=== PATIENT | male | born 1950 | race Caucasian/White ===

== ENCOUNTER 2018-05-17 08:11 | Outpatient (CLI) | payer MEDICARE, OTHER, SELFPAY ==
[2018-05-17 09:01] LABS: Hemoglobin A1C 6.9 % (4.5-6.2)
[2018-05-17 09:42] LABS: Cholesterol 164 mg/dL (50-200); HDL Cholesterol 28 mg/dL (40-60); LDL CHOLESTEROL 94 mg/dL (<100); Triglyceride 275 mg/dL (30-150)
== END 2018-05-17 08:31 ==
PROVIDERS: PCP Family Medicine; Visit Provider Family Medicine
DX: E78.5 Hyperlipidemia, unspecified (principal); E11.9 Type 2 diabetes mellitus without complications
CPT/HCPCS: 36415; 80061; 83721; 83036

== ENCOUNTER 2018-08-18 08:21 | Outpatient (CLI) | payer MEDICARE, OTHER, SELFPAY ==
--- NOTE | 2018-08-18 08:18 | DI.RAD_ITS ---
SYMPTOM/DIAGNOSIS: RT SHOULDER PAIN RIGHT SHOULDER: Three views. There are mild hypertrophic changes seen at both the acromioclavicular joint and the glenohumeral joint. Dystrophic calcifications are seen superior to the acromion. There are also calcifications adjacent to the greater tuberosity suggesting calcific tendinitis. No acute fracture, dislocation or suspicious lytic or sclerotic lesions are seen. IMPRESSION: Degenerative changes seen in the right shoulder.
== END 2018-08-18 08:41 ==
PROVIDERS: PCP Family Medicine; Referring Provider Family Medicine; Visit Provider Student in an Organized Health Care Education/Training Program
DX: M25.511 Pain in right shoulder (principal); M19.011 Primary osteoarthritis, right shoulder; E11.9 Type 2 diabetes mellitus without complications; Z79.4 Long term (current) use of insulin
CPT/HCPCS: 20610; 99214; 73030; J1040

== ENCOUNTER → 2018-09-29 08:18 | Outpatient (BNVA) | payer MEDICARE, OTHER, SELFPAY | PROVIDERS: PCP Family Medicine; Referring Provider Family Medicine; Visit Provider Student in an Organized Health Care Education/Training Program | DX: M75.101 Unspecified rotator cuff tear or rupture of right shoulder, not specified as traumatic (principal); E11.9 Type 2 diabetes mellitus without complications; Z79.4 Long term (current) use of insulin; M19.011 Primary osteoarthritis, right shoulder | CPT/HCPCS: 99213 ==

== ENCOUNTER 2018-10-04 00:37 | Outpatient (CLI) | payer MEDICARE, OTHER, SELFPAY ==
--- NOTE | 2018-10-04 14:34 | DI.MRI_ITS ---
SYMPTOM/DIAGNOSIS: RT SHOULDER PAIN, ROTATOR CUFF TEAR, M75.101 RIGHT SHOULDER MRI: Comparison is made with plain films dated 08/18/18. Proton density and fat suppressed T 2 axial and coronal and T 1 and fat suppressed T 2 sagittal sequences were performed. There is poor fat suppression on the T 2 fat suppressed images. There is a moderate to large sized joint effusion as well as fluid in the subcoracoid bursa. There are degenerative changes of the AC joint with mild inferior impingement. There is marked thickening of the supraspinatus tendon distally without evidence of a focal tear. A focal area of high signal is seen in the distal superior subscapularus tendon. The infraspinatus, teres minor and biceps tendons appear intact. There are degenerative changes of the glenoid, greatest posteriorly. A subchondral cyst is seen in the humeral head. There is no significant muscular atrophy. IMPRESSION: Marked thickening of the supraspinatus tendon, consistent with tendinosis. A small focal tear versus tendinitis is seen in the distal subscapularus tendon. Glenohumeral joint degenerative changes are also present.
== END 2018-10-04 00:57 ==
PROVIDERS: PCP Family Medicine; Visit Provider Student in an Organized Health Care Education/Training Program
DX: M25.511 Pain in right shoulder (principal); M75.101 Unspecified rotator cuff tear or rupture of right shoulder, not specified as traumatic; M19.011 Primary osteoarthritis, right shoulder; M75.81 Other shoulder lesions, right shoulder
CPT/HCPCS: 73221

== ENCOUNTER → 2018-10-11 10:21 | Outpatient (BNVA) | payer MEDICARE, OTHER, SELFPAY | PROVIDERS: PCP Family Medicine; Referring Provider Family Medicine; Visit Provider Student in an Organized Health Care Education/Training Program | DX: M75.111 Incomplete rotator cuff tear or rupture of right shoulder, not specified as traumatic (principal); E11.9 Type 2 diabetes mellitus without complications; Z79.4 Long term (current) use of insulin | CPT/HCPCS: 99213 ==

== ENCOUNTER 2018-11-04 01:00 | Outpatient (CLI) | payer MEDICARE, OTHER, SELFPAY ==
--- NOTE | 2018-11-04 09:35 | DI.RAD_ITS ---
SYMPTOMS/DIAGNOSIS: RT ROTATOR CUFF TEAR OR RUPTURE, M75.101 RIGHT SHOULDER INJECTION: Fluoroscopy Time: 14.4 secs, 1.37 mGy Fluoroscopy was provided for Dr. Espinal for guidance while performing a right shoulder injection. Please see procedure note for details.
[2018-11-04] MEDS: Bupivacaine 0.5% Pres-Free 10 ML VIAL 5 ML IJ (14:34)
[2018-11-04] MEDS: Omnipaque 300 MG/ML 10 ML BTL IJ (14:35)
[2018-11-04] MEDS: methylPREDNISolone ACETATE 80 MG/ML VIAL IM (14:36)
--- NOTE | 2018-11-04 17:36 | OPPNE_ITS ---
Date of service: 11/04/18 Time of Service: 12:35 Procedure Note Date of procedure: 11/04/18 Procedure: Right Shoulder Injection Surgeon/Proceduralist/Physician: Abhi Espinal Procedure Diagnosis: Right partial articular sided rotator cuff tear there Procedure Indications: Gal has had persistent pain of the RIGHT shoulder. Noninvasive measures have been tried. To serve as both diagnostic and therapeutic, an injection under fluoroscopy was recommended. I had discussed the risks of the procedure and the patient elected to proceed. Procedure Description: Gal was greeted in the flouroscopy room. The correct side was identified and the consent was reviewed with the patient and signed. The patient was then placed in the supine position on the fluoroscopy table. The RIGHT shoulder was then prepped with Chloraprep. The anterior injection starting point was identiifed by bony landmarks and fluoroscopy. The skin and soft tissue in the tract of the injection was anesthetized with 1% Lidocaine. A spinal needle was then inserted deep into the shoulder joint at the level of the recess between the glenoid and superior humeral head. A small amount of Omnipaque solution was injected to confirm intraarticular placement. Once confirmed, the shoulder was injected with 4cc of 0.5% Bupivicaine and 80mg of Depo-Medrol. A bandaid was placed on the injection site. The patient tolerated the procedure well and noted improvement in pre- injection pain.
== END 2018-11-04 01:20 ==
PROVIDERS: PCP Family Medicine; Visit Provider Student in an Organized Health Care Education/Training Program
DX: M25.511 Pain in right shoulder (principal); M75.101 Unspecified rotator cuff tear or rupture of right shoulder, not specified as traumatic
CPT/HCPCS: 20610; 77002; J1040

== ENCOUNTER → 2018-11-19 09:41 | Outpatient (BNVA) | payer MEDICARE, OTHER, SELFPAY | PROVIDERS: PCP Family Medicine; Referring Provider Family Medicine; Visit Provider Student in an Organized Health Care Education/Training Program | DX: M19.011 Primary osteoarthritis, right shoulder (principal); M75.111 Incomplete rotator cuff tear or rupture of right shoulder, not specified as traumatic; Z98.890 Other specified postprocedural states; E11.9 Type 2 diabetes mellitus without complications; Z79.4 Long term (current) use of insulin | CPT/HCPCS: 99212; 99213 ==

== ENCOUNTER → 2018-12-31 08:50 | Outpatient (BNVA) | payer MEDICARE, OTHER, SELFPAY | PROVIDERS: PCP Family Medicine; Referring Provider Family Medicine; Visit Provider Student in an Organized Health Care Education/Training Program | DX: Z98.890 Other specified postprocedural states (principal); M75.111 Incomplete rotator cuff tear or rupture of right shoulder, not specified as traumatic; M19.011 Primary osteoarthritis, right shoulder; E11.9 Type 2 diabetes mellitus without complications; Z79.4 Long term (current) use of insulin | CPT/HCPCS: 99211; 99213 ==

== ENCOUNTER → 2019-01-04 15:26 | Outpatient (BNVA) | payer MEDICARE, OTHER, SELFPAY | PROVIDERS: PCP Family Medicine; Visit Provider Psychiatry & Neurology Neurology | DX: G25.0 Essential tremor; E11.42 Type 2 diabetes mellitus with diabetic polyneuropathy; Z79.4 Long term (current) use of insulin | CPT/HCPCS: 99213; 99214 ==

== ENCOUNTER 2019-01-07 16:19 | Outpatient (REF) | payer MEDICARE, OTHER, SELFPAY ==
[2019-01-07 20:54] LABS: Hemoglobin A1C 7.1 % (4.5-6.2)
[2019-01-07 21:27] LABS: ALT 33 U/L (12-78); AST 15 U/L (15-37); Albumin 3.8 g/dL (3.4-5.0); Alkaline Phosphatase 72 U/L (46-116); Anion Gap 9.6 mmol/L (3-11); BUN 24 mg/dL (7-18); Bilirubin, Total 0.3 mg/dL (0.2-1.0); CO2 27.4 mmol/L (21.0-32.0); CREATININE 0.93 mg/dL (0.70-1.30); Calcium 9.9 mg/dL (8.5-10.1); Chloride 105 mmol/L (98-107); Glucose 137 mg/dL (70-100); Sodium 142 mmol/L (136-145); TSH (W/Ref FT4) 2.76 uIU/mL (0.358-3.74); Total Protein 7.1 g/dL (6.4-8.2); Vitamin B12 247 pg/mL (193-986)
[2019-01-10 13:44] LABS: Albumin 59.3 % (55.8-66.1)
== END 2019-01-07 16:39 ==
LOC: NCHCN 16:19
PROVIDERS: PCP Family Medicine; Visit Provider Family Medicine
DX: E03.9 Hypothyroidism, unspecified (principal); E11.9 Type 2 diabetes mellitus without complications; E78.5 Hyperlipidemia, unspecified; G62.9 Polyneuropathy, unspecified; M54.2 Cervicalgia
CPT/HCPCS: 80053; 82607; 83036; 84165; 84443

== ENCOUNTER 2019-01-21 09:54 | Outpatient (CLI) | payer MEDICARE, OTHER, SELFPAY ==
--- NOTE | 2019-01-21 09:32 | HPE_ITS ---
Assessment and Plan (1) DJD of right AC (acromioclavicular) joint: Current visit: No Status: Chronic Plan: Educated patient on surgery covering surgical technique, recovery process, benefits and risks including but not limited to risk of infection, blood clot, damage to soft tissue/blood vessels/nerves in detail. After discussion patient gives verbal understanding of risks and elects to proceed with scheduling surgery. Patient had opportunity to have questions answered to his satisfaction. He will contact office if issues arise. Patient will continue to be scheduled for right arthroscopic rotator cuff repair and distal clavicle excision with Dr. Espinal on 01/25/2019. (2) Right rotator cuff tear: Current visit: No Status: Chronic Qualifiers: Rotator cuff tear extent: incomplete Qualified Code(s): M75.111 - Incomplete rotator cuff tear or rupture of right shoulder, not specified as traumatic History of Present Illness Narrative: Mr. Arevalo is a 68-year-old [id number] male who presents to clinic for preoperative visit for scheduled right rotator cuff repair and distal clavicle excision with Dr. Espinal on 01/25/2019. Patient has been seen in orthopedic clinic since 08/18/2018 for worsening discomfort of atraumatic right shoulder pain that has been ongoing for approximately 2 years. Since that visit patient has received subacromial injection which provided approximately 4 weeks of pain relief, injection under fluoroscopy on 10/27/2018 which provided significant relief for several weeks, and attended physical therapy without any dramatic improvement. Patient continues to report right shoulder discomfort that is elicited with motions away from his body, getting dressed in the morning and when closing his car door. In addition he also reports severe sleep disturbance due to right shoulder discomfort. Patient has been managing discomfort by taking 2-4 tablets of Advil 3 times daily with mild improvement. As per Dr. Espinal's note on 10/11/2018 patient's MRI showed some partial tearing of supraspinatus tendon with significant tendinosis of the supraspinatus and subscapularis. Due to patient's continued pain despite adequate trial of c onservative therapies Dr. Espinal offered surgical intervention and patient elected to proceed. Patient denies any injuries or falls, symptoms of numbness or tingling. Pertinent Surgical Information Review of patient's EKG from 11/25/2017 which showed rate of 81 with frequent PVCs. Randy De La Vega, SCHOOL EXAMINER recommended further cardiology work-up based on this EKG before proceeding with surgery. Upon further investigation of patient's chart note from Dr. Brumfield on 04/27/2018 states: Holter December 2017 revealed 20,000 PVCs per day and 91 ventricular runs. He was started on bisoprolol. Repeat Holter monitor in February 2018 showed 4000 PVCs per day and a 7-beat ventricular run. Echocardiogram and nuclear stress test in December and January 2018 were normal under Impressions and Plan: Echocardiogram did not reveal structural heart disease, and nuclear stress test showed normal perfusion. Good blood pressure, no evidence of heart failure, no angina. -Continue bisoprolol 10 mg daily. -Repeat Holter in 1 year. Repeat EKG was completed today (01/21/2019) which showed rate of 51 - sinus bradycardia, low voltage throughout with presence of 1 PVC. EKG was then presented to and reviewed with Randy De La Vega CRNA who had no concerns and stated patient can to continue to proceed with surgery. Further review of patient's medication list show bisoprolol fumarate 10 mg PO qday. Case was re-discussed with Dr. Espinal who agreed that patient will proceed with surgery. At time of visit patient denies any cardiac symptoms including chest pain, palpitations, fast/slow/irregular heartbeats to his knowledge. Patient is very active and is able to complete activities such as lawn care without cardiac or pulmonary issues. Denies past medical history of: Hypertension, stroke, angina, COPD, sleep apnea, renal issues, liver issues, hepatitis, gastrointestinal ulcers, bleeding disorders, seizures, migraines, anxiety, autoimmune disorders Denies prior complications from surgery or anesthesia. Review of Systems Constitutional Denies fever(s), Reports frequent falls (loss of balance ambulates with a cane to help improve) and Reports headache(s) (occasional headaches) Eyes Denies change in vision ENT Denies ear discharge, Reports headache(s) (occasional headaches), Denies epistaxis, Denies nasal discharge and Denies sore throat Cardiovascular Denies chest pain, Denies rapid heart rate, Denies irregular heart rhythm, Denies palpitations, Denies dyspnea, Denies dyspnea on exertion, Denies orthopnea, Denies paroxysmal nocturnal dyspnea and Denies slow heart rate Comments: Denies laying on back at night due to increased dizziness; denies any recent change in symptoms; denies orthopnea Respiratory Reports cough (dry chronic cough), Denies excessive phlegm production, Denies pain with cough, Denies dyspnea, Denies dyspnea on exertion and Denies wheezing Gastrointestinal Denies abdominal pain, Denies melena, Denies hematochezia, Denies constipation, Denies diarrhea, Denies nausea and Denies vomiting Genitourinary Denies hematuria, Denies dysuria and Denies urinary urgency Musculoskeletal Reports as per HPI, Denies numbness and Denies tingling Neurologic Reports frequent falls (loss of balance ambulates with a cane to help improve), Reports headache(s) (occasional headaches), Denies numbness and Denies tingling Endocrine Denies palpitations Allergic/Immunologic Denies wheezing PFSH Medical History Chronic low back pain (Acute) Hypothyroidism (Chronic) Asthma (Chronic) Diabetic peripheral neuropathy (Acute) Diabetes Hyperlipemia 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) Right rotator cuff tear (Chronic) 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) Essential tremor (Acute 11/21/14) Depression (Resolved) Infection of total right knee replacement (Resolved) Surgical History S/P cholecystectomy (Acute) S/P lumbar spine operation (Acute) Status post total knee replacement, right (Acute) Social History Smoking/Tobacco Use Status: Former Tobacco Use Pack-years: 1 Alcohol Intake: current Alcohol Intake frequency: a few times a month Alcohol type: beer, wine and hard liquor Drug use: Never Substance use type: does not use Household members: children Do you feel safe at home: Yes Additional Social history: 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 He is a former alcoholic and now drinks approximately one alcoholic beverage per week. Meds Home Medications Medication Instructions Recorded Confirmed Type aspirin [Aspirin Low-Strength] 81 mg PO DAILY 04/07/14 01/21/19 History metformin 1,000 mg PO BID 04/07/14 01/21/19 History vitamin E 400 unit PO DAILY 04/07/14 01/21/19 History albuterol sulfate 2 puff INHALATION Q4H PRN inhaler 10/16/14 01/21/19 History ibuprofen [Advil] 0 PO PRN tab-cap 10/16/14 01/04/19 History calcium carbonate 1,200 mg PO DAILY tab.chew 11/08/14 01/21/19 History fluoxetine [Prozac] 40 mg PO DAILY tab-cap 11/08/14 01/21/19 History ibuprofen [Advil] 200 mg PO DIRECTED PRN tab-cap 11/08/14 01/21/19 History omeprazole 20 mg PO DAILY #30 tab-cap 11/25/17 01/21/19 Rx insulin asp prt-insulin aspart SUB-Q DIRECTED 01/05/18 01/04/19 History [Novolog Mix 70/30 Flexpen] bisoprolol fumarate 10 mg PO DAILY #90 tab-cap 04/28/18 01/21/19 Rx lisinopril 10 mg PO DAILY #90 tab-cap 04/28/18 01/21/19 Rx amoxicillin 500 mg tablet 2,000 mg PO .PROIR TO DENTAL tab 01/04/19 01/21/19 History insulin detemir (U-100) 100 40 unit SC BID ml 01/04/19 01/21/19 History unit/mL (3 mL) subcutaneous pen levothyroxine 75 mcg tablet 100 mcg PO DAILY tab 01/04/19 01/21/19 History Allergies Allergy/AdvReac Type Severity Reaction Status Date / Time ceftriaxone Allergy Severe ANAPHYLAXIS Unverified 01/21/19 16:59 Cephalosporins Allergy Severe Unverified 01/21/19 16:59 ciprofloxacin AdvReac Dizziness/L Unverified 01/21/19 16:59 ightheade meperidine HCl [From Demerol] AdvReac vomiting Unverified 01/21/19 16:59 morphine AdvReac vomiting Unverified 01/21/19 16:59 Exam Const General: cooperative and no acute distress HENMT Head: normal to inspection, normocephalic and atraumatic Ears: external ears normal General nose exam: external nose normal and no nasal discharge Face and sinus: face symmetric Mouth: oral mucosae normal, lip normal, tongue normal and moist mucous membranes Teeth and gingiva: dentition normal Throat: posterior oropharynx normal Eyes General: appearance normal, both eyes and all related structures Pupils: PERRL EOM: EOM intact bilaterally Neck Neck: trachea midline Carotids: normal carotid upstroke Lymphatic: no lymphadenopathy noted Resp Effort & Inspection: normal respiratory effort and able to speak in complete sentences Auscultation: clear to auscultation bilaterally, no rales, no rhonchi and no wheezes Cardio Heart Sounds: S1 normal, S2 normal and no murmurs Pulses: radial pulses present bilaterally GI Palpation: soft, no hepatosplenomegaly and nontender Auscultation: normal bowel sounds Skin General skin exam: no rashes or lesions noted
== END 2019-01-21 10:14 ==
PROVIDERS: PCP Family Medicine; Visit Provider Student in an Organized Health Care Education/Training Program
DX: I49.3 Ventricular premature depolarization (principal); M19.011 Primary osteoarthritis, right shoulder; M75.111 Incomplete rotator cuff tear or rupture of right shoulder, not specified as traumatic; E11.42 Type 2 diabetes mellitus with diabetic polyneuropathy; Z01.818 Encounter for other preprocedural examination; Z79.4 Long term (current) use of insulin
CPT/HCPCS: NC; 93005; 93010

== ENCOUNTER 2019-01-25 09:01 | Day surgery (SDC) | payer MEDICARE, OTHER, SELFPAY ==
[2019-01-21 10:33] VITALS: BP 125/69; PULSE 56; RESP 18; TEMP 36.6; O2SAT 98
[2019-01-25] VITALS (9 sets, daily range): BP systolic 108–151; BP diastolic 36–74; PULSE 50–72; RESP 18–21; TEMP 36.4–36.6; O2SAT 92–96
[2019-01-25] MEDS: Lactated Ringers 1,000 ML 80 ML IV ×2 (09:53→12:59)
[2019-01-25] MEDS: Bupivacaine LIPOSOME/PF 133 MG/10 ML VIAL IJ (10:20)
[2019-01-25] MEDS: Bupivacaine 0.25% Pres-Free 30 ML VIAL ×2 (10:48→12:25)
--- NOTE | 2019-01-25 10:50 | PDOC.DSDIS_ITS ---
Discharge Plan Disposition Patient Disposition: HOME Condition: Good Discharge Details Reason For Visit: Right Rotator Cuff Tear and AC Arthritis Attending Provider: Abhi Espinal Primary Care Provider: Beatriz Cotton V Home Meds and New Rx's Prescriptions: New acetaminophen 500 mg tablet 1,000 mg PO Q8H PRN (Reason: pain) Qty: 90 RF: 3 ibuprofen 600 mg tablet 600 mg PO TID PRNQty: 60 RF: 3 oxycodone 5 mg tablet 5 mg PO Q4H Qty: 12 RF: 0 Continued Levemir FlexTouch U-100 Insuln 100 unit/mL (3 mL) insulin pen 40 unit SC BID RF: 0 amoxicillin 500 mg tablet 2,000 mg PO .PROIR TO DENTAL RF: 0 albuterol sulfate 8.5 GM HFA aerosol inhaler 2 puff Inhalation Q4H PRN RF: 0 calcium carbonate 500 MG tablet,chewable 1,200 mg PO DAILY RF: 0 fluoxetine [Prozac] 20 MG capsule 40 mg PO DAILY RF: 0 omeprazole 20 MG capsule,delayed release(DR/EC) 20 mg PO DAILY Qty: 30 RF: 0 Novolog Mix 70-30FlexPen U-100 100 UNIT/1 ML insulin pen Sub-Q DIRECTED RF: 0 bisoprolol fumarate 10 MG tablet 10 mg PO DAILY Qty: 90 RF: 3 lisinopril 10 MG tablet 10 mg PO DAILY Qty: 90 RF: 3 vitamin E 200 UNIT capsule 400 unit PO DAILY RF: 0 aspirin [Aspirin Low-Strength] 81 MG tablet,chewable 81 mg PO DAILY RF: 0 metformin 500 MG tablet extended release 24 hr 1,000 mg PO BID RF: 0 levothyroxine 75 mcg tablet 100 mcg PO DAILY RF: 0 Discontinued ibuprofen [Advil Liqui-Gel] 200 MG capsule PO PRN RF: 0 ibuprofen [Advil] 100 MG tablet 200 mg PO DIRECTED PRNRF: 0 Discharge Instructions Stand Alone Forms: Kylie linda/RCR Referrals: Abhi Espinal MD [ [facility] STAFF PHYSICIAN] - Equipment/Supplies: Sling Activity:: In Sling except for hygiene Remove Dressings/Wound Care:: 72 hours Shower/Bathe:: 72 hours Diet:: As Tolerated Discharge Orders Discharge Orders: Discharge Order (Routine); Ordered 01/25/19 Ordered By: Abhi Espinal DS: Diagnosis Discharge Diagnosis (1) Right rotator cuff tear: Status: Chronic (2) DJD of right AC (acromioclavicular) joint: Status: Chronic
[2019-01-25] MEDS: CLINDAMYCIN 600 MG/50 ML BAG 100 MG IVPB (10:53)
[2019-01-25] MEDS: Albuterol 2.5 MG/3 ML INH SOLN VIAL UPD (13:21)
--- NOTE | 2019-01-25 16:36 | W.PM.OP ---
Date of service: 01/25/19 Time of Service: 14:36 Operative Note DATE OF PROCEDURE: 01/25/19 PRE-OP DIAGNOSIS: Right AC arthritis, right rotator cuff tear POST-OP DIAGNOSIS: other (Right AC arthritis, right rotator cuff tear, right superior labral tear with biceps tendinitis) PROCEDURE: - Mini-Open Distal Clavicle Excision - Arthroscopic Rotator Cuff Repair - Extensive debridement of anterior and posterior glenohumeral joint and rotator cuff - Subacromial Debridement with Acromioplasty SURGEON: Abhi Espinal WARRANT SERVER: Nicky Lopez ANESTHESIA: GETA and regional ESTIMATED BLOOD LOSS: 20 PATHOLOGY: none sent COMPLICATIONS: None Patient was transported to: PACU Patient's condition: stable Indications: I have seen Gal in clinic for a painful shoulder. Pathology was confirmed based on MRI and exam findings. Nonoperative measures were exhausted but disability and pain persisted. I discussed shoulder arthroscopy and procedures. I reviewed the risks of the procedures to include, but not limited to, bleeding, infection, pain, stiffness, damage to nerves or vessels, recurrence, hardware failure, blood clot. Despite these risks, the patient elected to proceed. Findings: There were signs of arthrosis of the distal clavicle; a 1cm wedge was resected A diagnostic arthroscopy was performed with the following findings: - Glenohumeral Joint: There is some focal areas within the central portion of the glenoid and the superior posterior portion of the humeral head with grade II/III chondromalacia. - Labrum: Significant fraying and complex tearing was seen from approximately 11:00 to 4:00. The biceps anchor was involved in the biceps also had some minor fraying and inflammatory changes - Cuff: High-grade partial articular sided tear of the anterior portion spinatus tendon. There also appear to be a longitudinal type split within the subscapularis bowels unable to expose the footprint and therefore did not repair - Biceps: Inflammatory change and tearing of the anchor. - Subacromial: Large bursa with intact bursal cuff and minor anterolateral spurring Procedure Description: Gal was greeted in the preoperative holding area where the correct side was identified and marked. The consent was reviewed with the patient and signed. The history and physical was updated. All questions were answered. He was taken back to the PACU for administration of an intrascalene nerve block. Gal was then taken to the operating room. The patient was placed into the supine position on the operating room table. A general anesthetic was administered. He was then positioned in the beach chair position. All bony prominences were well padded. The head was placed in a foam greenskeeper head in a neutral position. Prophylactic antibiotics in the form of clindamycin were administered. The right arm/shoulder was then prepped with Chloraprep and draped in a standard fashion with stockinette and shoulder drape. A timeout to confirm correct identity, side and site, procedure, allergies, anesthesia, and medical concerns was performed. The arm was placed into a pneumatic vasquez, [id number]. The distal clavicle was approached through a 2 and half centimeter incision within Cornelius's lines. This was made overlying the AC joint. The skin was incised sharply. The deeper tissues dissected with electrocautery. The clavipectoral fascia was identified and incised longitudinally off of the distal clavicle and onto the acromion. This was reflected subperiosteally to expose the distal clavicle and the AC joint. With adequate exposure a 1 cm bony resection was made using an oscillating saw. This is angled posteriorly to avoid any posterior impingement. Once it was fully resected, it was inspected to make sure it is of adequate width. A rasp was used to smooth the bony edges inferiorly and posteriorly primarily. A small amount of bone wax was placed on the end of the distal clavicle. The wound was thoroughly irrigated. There is no active bleeding. The clavipectoral fascia was then closed with a 0 Vicryl in a watertight fashion. The subcutaneous tissues were then reapproximated with a 2-0 Vicryl. The shoulder arthroscopy was then performed. The glenohumeral joint was injected with 20 cc of normal saline with good flow back. A standard posterior portal was made and the joint was entered atraumatically with a blunt arthroscope. Once inside we had good visualization of the structures of the glenohumeral joint. An anterior portal was established with spinal needle localization. A 6.5 mm cannula was inserted. A probe was then used to perform a diagnostic arthroscopy. There is noted to be focal arthritic change within the central portion of the glenoid and the superior and posterior portions of the humeral head.. The labrum was torn and frayed from 11-4:00. There was one loose body which was removed through the anterior portal. The superior rotator cuff was notably torn over the anterior aspect. It involves greater than 8 mm and was significantly frayed. The biceps tendon had signs of inflammatory change along with some tearing around his anchor. The subscapularis had what appeared to be a longitudinal split type tear but there is no exposed footprint and I was unable to separate the tendon. I debrided down the inflammatory change seen within the glenohumeral space with a little cautery and with a shaver. I performed a biceps tenotomy with the electrocautery device. The labrum was contoured and removed any areas of complex tearing. The subscapularis was probed and did not show any signs of exposed footprint so therefore I did not complete a any repair. I did a light debridement of the area. The anterior portion of the supraspinatus insertion did have significant fraying and tearing of at least 8 mm. I debrided down the exposed tissue surfaces and the bone of the area. The posterior cuff was intact. A PDS was placed through the area of concern of the supraspinatus insertion for identification of the bursal space. The arthroscope was then inserted into the subacromial space. The 6.5 mm cannula was placed lateral to the CA ligament. A complete bursectomy is performed anteriorly, posteriorly, and laterally with electrocautery and shaver. This had excellent exposure of the rotator cuff. The bursal side rotator cuff was without any significant tearing that was appreciated. There was a small anterolateral spur. Using a spinal needle a lateral portal was established. This became the viewing portal. The PDS suture was identified. A probe easily fell within this tissue. And had no strong attachment to the tuberosity. Using the probe in the left cardia device I completed the partial tear to make a complete crescent type tear involving the anterior portion of the supra spinatus insertion on the greater tuberosity. The footprint was debrided with the shaver. A single 4.5 mm Mytec Healix anchor was placed on the medial portion of the footprint insertion. Using the Mytec retrograde suture passer device I placed 2 horizontal mattress sutures within the tendon. This tendon quality was excellent and held the sutures well. To horizontal mattress sutures were then tied and this nicely reapproximated tear back down to bone. There is no gapping there is no dog tearing. I therefore did not perform any lateral row. I debrided this tissue down. A 5.0 mm denver was then inserted from the posterior portal. The anterolateral corner of the acromion was then resected in plane with the posterior slope of the acromion. The scope equipment was removed from the shoulder. Excess fluid was evacuated. The portal sites were closed with 3-0 Monocryl. The wounds were dressed with Steri-Strips, 4 x 4's, ABDs, Medipore tape. A sling was applied. The patient tolerated the procedure well and was returned to the Same Day Surgery area in a stable condition suffering no known complication.
--- NOTE | 2019-01-27 08:52 | PDOC.ANES ---
Date of service: 01/27/19 Time of Service: 08:53 Anesthesia Note Report Anesthesia Note: Mr. Arevalo called today to state that he was experiencing some shortness of breath after his surgery on 01/25/19. He had surgery on his shoulder under general anesthesia with an ETT and a preoperative brachial plexus block. On calling him back we had a long discussion of potential causes of shortness of breath including, phrenic nerve block, pneumothorax, atelectasis, etc. He described being slightly short off breath while walking, but when he got into a reclined position he stated that his shortness of breath increased. Discussed the likely potential issue being abdominal contents shifting and pushing up combined with his phrenic nerve being blocked. While chatting with him on the phone he was speaking in full sentences, and did not sound out of breath. I told him that while I do feel that this is likely a side effect of the block that he should come to the emergency room if he feels that he gets worse, has any significant change in his breathing, or if he has significant concerns as this. I encouraged him to reach out to us with any further questions that he may have.
== END 2019-01-25 16:18 | disposition home or self-care (01) ==
PROVIDERS: PCP Family Medicine; Visit Provider Student in an Organized Health Care Education/Training Program
PROC: (CPT 23120; principal; 2019-01-25 10:30)
PROC: (CPT 29827; 2019-01-25 10:30)
DX: M19.011 Primary osteoarthritis, right shoulder (principal); M94.211 Chondromalacia, right shoulder; M75.111 Incomplete rotator cuff tear or rupture of right shoulder, not specified as traumatic; M75.21 Bicipital tendinitis, right shoulder; M24.011 Loose body in right shoulder
CPT/HCPCS: 29827; 29826; 29823; 23120; 76942; A4600; J1100; J1885; J2250; J2370; J7613; L3650; L3670

== ENCOUNTER → 2019-02-07 13:14 | Outpatient (BNVA) | payer MEDICARE, OTHER, SELFPAY | PROVIDERS: PCP Family Medicine; Referring Provider Family Medicine; Visit Provider Student in an Organized Health Care Education/Training Program | DX: E11.42 Type 2 diabetes mellitus with diabetic polyneuropathy (principal); Z47.89 Encounter for other orthopedic aftercare; M75.111 Incomplete rotator cuff tear or rupture of right shoulder, not specified as traumatic ==

== ENCOUNTER → 2019-02-28 09:06 | Outpatient (BNVA) | payer MEDICARE, OTHER, SELFPAY | PROVIDERS: PCP Family Medicine; Referring Provider Family Medicine; Visit Provider Student in an Organized Health Care Education/Training Program | DX: Z47.89 Encounter for other orthopedic aftercare (principal) ==

== ENCOUNTER → 2019-03-07 09:34 | Outpatient (BNVA) | payer MEDICARE, OTHER, SELFPAY | PROVIDERS: PCP Family Medicine; Referring Provider Family Medicine; Visit Provider Student in an Organized Health Care Education/Training Program | DX: Z47.89 Encounter for other orthopedic aftercare (principal); E11.42 Type 2 diabetes mellitus with diabetic polyneuropathy ==

== ENCOUNTER 2019-03-29 08:59 | Emergency (ER) | payer MEDICARE, OTHER, SELFPAY ==
[2019-03-29 09:06] VITALS: BP 122/78; PULSE 65; RESP 18; TEMP 36.4; O2SAT 97
--- NOTE | 2019-03-29 09:20 | W.ED.GENAD ---
Discharge Plan Disposition Patient Disposition: HOME Condition: Stable Discharge Details Chief Complaint: Cellulitis Clinical Impression: Insect bite of knee, infected Primary Care Provider: Beatriz Cotton V ED Provider: Ron Carrizales Home Meds and New Rx's Prescriptions: New cephalexin [Keflex] 500 mg capsule 500 mg PO TID 5 Days Qty: 15 RF: 0 Continued Levemir FlexTouch U-100 Insuln 100 unit/mL (3 mL) insulin pen 40 unit SC BID RF: 0 amoxicillin 500 mg tablet 2,000 mg PO .PROIR TO DENTAL RF: 0 albuterol sulfate 8.5 GM HFA aerosol inhaler 2 puff Inhalation Q4H PRN RF: 0 calcium carbonate 500 MG tablet,chewable 1,200 mg PO DAILY RF: 0 fluoxetine [Prozac] 20 MG capsule 40 mg PO DAILY RF: 0 omeprazole 20 MG capsule,delayed release(DR/EC) 20 mg PO DAILY Qty: 30 RF: 0 Novolog Mix 70-30FlexPen U-100 100 UNIT/1 ML insulin pen Sub-Q DIRECTED RF: 0 bisoprolol fumarate 10 MG tablet 10 mg PO DAILY Qty: 90 RF: 3 lisinopril 10 MG tablet 10 mg PO DAILY Qty: 90 RF: 3 vitamin E 200 UNIT capsule 400 unit PO DAILY RF: 0 aspirin [Aspirin Low-Strength] 81 MG tablet,chewable 81 mg PO DAILY RF: 0 metformin 500 MG tablet extended release 24 hr 1,000 mg PO BID RF: 0 levothyroxine 75 mcg tablet 100 mcg PO DAILY RF: 0 acetaminophen 500 mg tablet 1,000 mg PO Q8H PRN (Reason: pain) Qty: 90 RF: 3 ibuprofen 600 mg tablet 600 mg PO TID PRNQty: 60 RF: 3 Discharge Instructions Instructions: Cellulitis (ED), Insect Bite or Sting (ED), Tick Bite (ED) Additional Instructions: Continue to monitor site of insect bite and return immediately to emergency department for any new or worsening symptoms, fever chills, or rapid spread of rash. Otherwise follow-up with your primary care provider if not improving over the next couple days Referrals: Beatriz Cotton MD [Primary Care Provider] - (As needed for reassessment or if not improving) Medical Decision Making Patient presenting to the emergency department chief complaint of insect bite. Patient states that this may have occurred on thursday. Patient denies any other symptoms, new arthralgias, fever chills. Physical exam is unremarkable except for erythema consistent with insect bite and may be a spider vs tick. No tick or insect is present at this time. Given significant erythema there is concern for infected tick bite and patient placed upon Keflex which he has had in the past with no issues even though he has listed allergy to ceftriaxone. Given potential for tick bite but no erythema margins or concerning findings for Lyme disease patient given single dose of doxycycline to cover for potential exposure of Lyme. Return precautions discussed. After discussion of diagnosis and plan of care patient has no further needs, questions, or concerns and states clear understanding to return to the emergency department for any worsening symptoms. HPI General Mode of arrival: ambulatory. Date/Time Provider Initiated Documentation: 03/29/19 09:05. Limitations to Documentation: no limitations. Information obtained by: patient and RN notes reviewed. History of Present Illness 68 year old M presents to the emergency department with the chief complaint of insect bite, with intensity rated at 2. Quality is described as aching, and is localized to the left and lower extremity. Patient started experiencing this hour(s) (2) and it has been constant. Patient notes no other symptoms.. Patient did receive the following treatments prior to arrival, none Related Data Home Medications Medication Instructions Recorded Confirmed aspirin [Aspirin Low-Strength] 81 mg PO DAILY 04/07/14 03/29/19 metformin 1,000 mg PO BID 04/07/14 03/29/19 vitamin E 400 unit PO DAILY 04/07/14 03/29/19 albuterol sulfate 2 puff INHALATION Q4H PRN inhaler 10/16/14 03/29/19 calcium carbonate 1,200 mg PO DAILY tab.chew 11/08/14 03/29/19 fluoxetine [Prozac] 40 mg PO DAILY tab-cap 11/08/14 03/29/19 omeprazole 20 mg PO DAILY #30 tab-cap 11/25/17 03/29/19 Novolog Mix 70-30FlexPen U-100 SUB-Q DIRECTED 01/05/18 03/07/19 bisoprolol fumarate 10 mg PO DAILY #90 tab-cap 04/28/18 03/29/19 lisinopril 10 mg PO DAILY #90 tab-cap 04/28/18 03/29/19 amoxicillin 500 mg tablet 2,000 mg PO .PROIR TO DENTAL tab 01/04/19 03/29/19 insulin detemir U-100 100 unit/mL 40 unit SC BID ml 01/04/19 03/29/19 (3 mL) subcutaneous pen levothyroxine 75 mcg tablet 100 mcg PO DAILY tab 01/04/19 03/29/19 acetaminophen 1,000 mg PO Q8H PRN #90 tab 01/25/19 03/29/19 ibuprofen 600 mg PO TID PRN #60 tab 01/25/19 03/29/19 cephalexin [Keflex] 500 mg PO TID 5 Days #15 cap 03/29/19 Previous Rx's Medication Instructions Recorded omeprazole 20 mg PO DAILY #30 tab-cap 11/25/17 bisoprolol fumarate 10 mg PO DAILY #90 tab-cap 04/28/18 lisinopril 10 mg PO DAILY #90 tab-cap 04/28/18 acetaminophen 1,000 mg PO Q8H PRN #90 tab 01/25/19 ibuprofen 600 mg PO TID PRN #60 tab 01/25/19 cephalexin [Keflex] 500 mg PO TID 5 Days #15 cap 03/29/19 Allergies Allergy/AdvReac Type Severity Reaction Status Date / Time ceftriaxone Allergy Severe ANAPHYLAXIS Unverified 03/29/19 09:10 Cephalosporins Allergy Severe Unverified 03/29/19 09:10 ciprofloxacin AdvReac Dizziness/L Unverified 03/29/19 09:10 ightheade meperidine HCl [From Demerol] AdvReac vomiting Unverified 03/29/19 09:10 morphine AdvReac vomiting Unverified 03/29/19 09:10 General Stated Complaint: Cellulitis CASIMIRO: 4 Review of Systems Constitutional Denies body ache(s), Denies fever(s) and Denies headache(s) ENT Denies headache(s) Musculoskeletal Denies myalgias, Denies arthralgias, Denies joint swelling and Denies radiating pain into limb Integumentary/Breasts Reports as per HPI, Reports erythema and Denies rash Neurologic Denies headache(s) and Denies paresthesias PFSH Medical History Asthma (Chronic) Chronic low back pain (Acute) Depression (Resolved) Diabetes Diabetic peripheral neuropathy (Acute) 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) Essential tremor (Acute 11/21/14) Hyperlipemia Hypothyroidism (Chronic) 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) Right rotator cuff tear (Resolved) Surgical History S/P cholecystectomy (Acute) S/P lumbar spine operation (Acute) Status post total knee replacement, right (Acute) Family History Father Heart disease Brother Tremor Son Seizure Mother Osteoarthritis Social History Smoking/Tobacco Use Status: Former Tobacco Use Pack-years: 1 Alcohol Intake: current Alcohol Intake frequency: a few times a month Alcohol type: beer, wine and hard liquor Drug use: Never Substance use type: does not use Household members: children Do you feel safe at home: Yes Additional Social history: 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 He is a former alcoholic and now drinks approximately one alcoholic beverage per week. Exam Const General: cooperative, comfortable and no acute distress Orientation: alert, awake and oriented x3 Resp Effort & Inspection: normal respiratory effort and able to speak in complete sentences Skin General skin exam: erythema (4cm Circular area with 2 central bite lindsay/abrasions), no fluctuance and no induration Rashes: no rashes Neuro General: alert, awake and oriented x3 Course Vital Signs Temperature 36.4 C L 03/29/19 09:06 Pulse 65 03/29/19 09:06 Respiratory Rate 18 03/29/19 09:06 Blood Pressure 122/78 03/29/19 09:06 Pulse Oximetry 97 03/29/19 09:06 Temperature 36.4 C L 03/29/19 09:06 Temperature Source Temporal Artery Scan 03/29/19 09:06 Pulse 65 03/29/19 09:06 Respiratory Rate 18 03/29/19 09:06 Respiratory Effort 03/29/19 09:18 Blood Pressure 122/78 07/23/19 09:06 Pulse Oximetry 97 03/29/19 09:06 Oxygen Delivery Method Room Air 03/29/19 09:06 Oxygen Flow Rate 0 03/29/19 09:06
[2019-03-29] MEDS: Doxycycline Hyclate 100 MG CAP 200 MG PO (09:35)
--- NOTE | 2019-03-29 09:43 | NUR.NOTE ---
pt medicated as per mdo prior to dc dc/rx reviewed with pt able to verblize understanding ambulatory steady on dc Nursing Note:
== END 2019-03-29 09:43 | disposition home or self-care (01) ==
PROVIDERS: Emergency Provider Nurse Practitioner Family; PCP Family Medicine
DX: L03.116 Cellulitis of left lower limb (principal); W57.XXXA Bitten or stung by nonvenomous insect and other nonvenomous arthropods, initial encounter; E11.9 Type 2 diabetes mellitus without complications; Z79.4 Long term (current) use of insulin
CPT/HCPCS: 99283

== ENCOUNTER 2019-04-06 09:53 | Emergency (ER) | payer MEDICARE, OTHER, SELFPAY ==
[2019-04-06 10:09] VITALS: BP 128/63; PULSE 59; RESP 17; TEMP 36.5; O2SAT 94
--- NOTE | 2019-04-06 10:28 | W.ED.GENAD ---
Discharge Plan Disposition Patient Disposition: HOME Condition: Fair Discharge Details Chief Complaint: RashLesion Clinical Impression: Cellulitis Primary Care Provider: Beatriz Cotton V ED Provider: Jessica Colvin Home Meds and New Rx's Prescriptions: New doxycycline hyclate 100 mg capsule 100 mg PO BID Qty: 14 RF: 0 Continued Levemir FlexTouch U-100 Insuln 100 unit/mL (3 mL) insulin pen 40 unit SC BID RF: 0 amoxicillin 500 mg tablet 2,000 mg PO .PROIR TO DENTAL RF: 0 albuterol sulfate 8.5 GM HFA aerosol inhaler 2 puff Inhalation Q4H PRN RF: 0 calcium carbonate 500 MG tablet,chewable 1,200 mg PO DAILY RF: 0 fluoxetine [Prozac] 20 MG capsule 40 mg PO DAILY RF: 0 omeprazole 20 MG capsule,delayed release(DR/EC) 20 mg PO DAILY Qty: 30 RF: 0 Novolog Mix 70-30FlexPen U-100 100 UNIT/1 ML insulin pen Sub-Q DIRECTED RF: 0 bisoprolol fumarate 10 MG tablet 10 mg PO DAILY Qty: 90 RF: 3 lisinopril 10 MG tablet 10 mg PO DAILY Qty: 90 RF: 3 vitamin E 200 UNIT capsule 400 unit PO DAILY RF: 0 aspirin [Aspirin Low-Strength] 81 MG tablet,chewable 81 mg PO DAILY RF: 0 metformin 500 MG tablet extended release 24 hr 1,000 mg PO BID RF: 0 levothyroxine 75 mcg tablet 100 mcg PO DAILY RF: 0 acetaminophen 500 mg tablet 1,000 mg PO Q8H PRN (Reason: pain) Qty: 90 RF: 3 ibuprofen 600 mg tablet 600 mg PO TID PRNQty: 60 RF: 3 Discharge Instructions Instructions: Cellulitis (ED) Additional Instructions: Encourage hydration. Tylenol and ibuprofen as needed for discomfort. Elevate the extremity as much as possible. Please contact your primary care provider to schedule follow-up within the next 48 hours for reevaluation. Please take the doxycycline as prescribed. Even if symptoms improve, please take the entire course. Please avoid direct sun while in the doxycycline. Please do not take your calcium supplement while on the doxycycline, hold this and begin once you have finished. If you develop fever/chills, increased pain, spreading of the redness or the new/worsening symptoms please seek care urgently once again Referrals: Beatriz Cotton MD [Primary Care Provider] - Discharge Data Discharge Date/Time-TO BE ENTERED AT DEPARTURE: 04/06/19 10:42 Medical Decision Making Patient 68-year-old male presents today with chief complaint of infection after bite to the posterior left knee. Patient was seen here on 03/29/2019 at which time he was diagnosed with an infected bite begun on Keflex. He has finished a course of Keflex and it despite this the erythema has persisted. He denies any fevers or chills. No constitutional symptoms. He was given a dose of doxycycline for possible exposure to Lyme as it was unknown if this may have been associated with a tick bite. Patient reports that the drainage did have been apparent initially has subsided. He is having no pain at this time. However, the erythema and swelling has persisted. He has not been evaluated at this time by his primary care. On exam, the patient has a well-circumscribed circular area of erythema, 3 cm in diameter with healed over open areas centrally. No fluctuance. He does have soft tissue swelling. I did evaluate this and ultrasound did not see any collection of fluid to suggest an abscess. Patient does have a total knee replacement on the contralateral side, I feel that he is at high risk for infection. We will place him on a new antibiotic and have him follow-up with his primary care within the next 48 hours for reevaluation. We discussed new/worsening symptoms when to seek care urgently once again. All his questions and concerns were addressed and he is in agreement this plan HPI General Mode of arrival: ambulatory. Date/Time Provider Initiated Documentation: 04/06/19 10:18. Limitations to Documentation: no limitations. Information obtained by: patient and RN notes reviewed. History of Present Illness 68 year old M presents to the emergency department with the chief complaint of erythema to posterior left knee, described as mild, Quality is described as aching, and is localized to the left and lower extremity. Patient reports no radiation. Patient started experiencing this week(s) and it has been constant. No relieving factors improve symptom(s), No exacerbating factors reported . Patient notes no other symptoms.. Patient did receive the following treatments prior to arrival, other (finished course of Keflex) Related Data Home Medications Medication Instructions Recorded Confirmed aspirin [Aspirin Low-Strength] 81 mg PO DAILY 04/07/14 03/29/19 metformin 1,000 mg PO BID 04/07/14 03/29/19 vitamin E 400 unit PO DAILY 04/07/14 03/29/19 albuterol sulfate 2 puff INHALATION Q4H PRN inhaler 10/16/14 03/29/19 calcium carbonate 1,200 mg PO DAILY tab.chew 11/08/14 03/29/19 fluoxetine [Prozac] 40 mg PO DAILY tab-cap 11/08/14 03/29/19 omeprazole 20 mg PO DAILY #30 tab-cap 11/25/17 03/29/19 Novolog Mix 70-30FlexPen U-100 SUB-Q DIRECTED 01/05/18 03/07/19 bisoprolol fumarate 10 mg PO DAILY #90 tab-cap 04/28/18 03/29/19 lisinopril 10 mg PO DAILY #90 tab-cap 04/28/18 03/29/19 amoxicillin 500 mg tablet 2,000 mg PO .PROIR TO DENTAL tab 01/04/19 03/29/19 insulin detemir U-100 100 unit/mL 40 unit SC BID ml 01/04/19 03/29/19 (3 mL) subcutaneous pen levothyroxine 75 mcg tablet 100 mcg PO DAILY tab 01/04/19 03/29/19 acetaminophen 1,000 mg PO Q8H PRN #90 tab 01/25/19 03/29/19 ibuprofen 600 mg PO TID PRN #60 tab 01/25/19 03/29/19 doxycycline hyclate 100 mg PO BID #14 cap 04/06/19 Previous Rx's Medication Instructions Recorded omeprazole 20 mg PO DAILY #30 tab-cap 11/25/17 bisoprolol fumarate 10 mg PO DAILY #90 tab-cap 04/28/18 lisinopril 10 mg PO DAILY #90 tab-cap 04/28/18 acetaminophen 1,000 mg PO Q8H PRN #90 tab 01/25/19 ibuprofen 600 mg PO TID PRN #60 tab 01/25/19 doxycycline hyclate 100 mg PO BID #14 cap 04/06/19 Allergies Allergy/AdvReac Type Severity Reaction Status Date / Time ceftriaxone Allergy Severe ANAPHYLAXIS Unverified 03/29/19 09:10 Cephalosporins Allergy Severe Unverified 03/29/19 09:10 ciprofloxacin AdvReac Dizziness/L Unverified 03/29/19 09:10 ightheade meperidine HCl [From Demerol] AdvReac vomiting Unverified 03/29/19 09:10 morphine AdvReac vomiting Unverified 03/29/19 09:10 General Stated Complaint: RashLesion CASIMIRO: 4 Review of Systems Constitutional Reports as per HPI, Denies chills and Denies fever(s) Musculoskeletal Reports as per HPI Integumentary/Breasts Reports as per HPI Neurologic Reports as per HPI, Denies sensory deficit and Denies paresthesias [facility] Medical History Asthma (Chronic) Chronic low back pain (Acute) Depression (Resolved) Diabetes Diabetic peripheral neuropathy (Acute) 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) Essential tremor (Acute 11/21/14) Hyperlipemia Hypothyroidism (Chronic) 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 He is a former alcoholic and now drinks approximately one alcoholic beverage per week. Exam Const General: cooperative, healthy appearing, comfortable, no acute distress and well developed Nutritional Appearance: average body habitus and well nourished Orientation: alert and awake Resp Effort & Inspection: normal respiratory effort, able to speak in complete sentences and no respiratory distress Cardio Rate: regular rate Rhythm: regular rhythm Skin General skin exam: erythema (3cm circular area of erythema posterior left knee, swollen, no drainage) and no fluctuance Neuro General: alert and awake Cognition: normal cognition Speech: speech normal Gait: normal gait Sensory Exam: no sensory deficits noted Extrem Left lower extremity: full ROM, normal capillary refill, no joint enlargement, knee Details: abnormal to inspection (as above), swelling (localized to erythema) and normal ROM; no tenderness and no unusual warmth and lower leg Details: normal to inspection; abnormal to inspection (erythema as above) Psych Appearance: grossly normal and well kempt Mental Status: mental status grossly normal Speech and Movement: speech and movement normal Course Vital Signs Temperature 36.5 C 04/06/19 10:09 Pulse 59 L 04/06/19 10:09 Respiratory Rate 17 04/06/19 10:09 Blood Pressure 128/63 04/06/19 10:09 Pulse Oximetry 94 L 04/06/19 10:09 Temperature 36.5 C 04/06/19 10:09 Temperature Source Skin 04/06/19 10:09 Pulse 59 L 04/06/19 10:09 Respiratory Rate 17 04/06/19 10:09 Respiratory Effort Non-Labored 04/06/19 10:09 Blood Pressure 128/63 04/06/19 10:09 Blood Pressure Position Sitting 04/06/19 10:09 Pulse Oximetry 94 L 04/06/19 10:09 Oxygen Delivery Method Room Air 04/06/19 10:09 Oxygen Flow Rate 0 04/06/19 10:09 Pain Level 2 04/06/19 10:09
== END 2019-04-06 10:42 | disposition home or self-care (01) ==
PROVIDERS: Emergency Provider Physician Assistant; PCP Family Medicine
DX: L03.116 Cellulitis of left lower limb (principal); Z96.651 Presence of right artificial knee joint; E11.9 Type 2 diabetes mellitus without complications; Z79.4 Long term (current) use of insulin
CPT/HCPCS: 99283

== ENCOUNTER → 2019-04-18 08:50 | Outpatient (BNVA) | payer MEDICARE, OTHER, SELFPAY | PROVIDERS: PCP Family Medicine; Referring Provider Family Medicine; Visit Provider Student in an Organized Health Care Education/Training Program | DX: Z47.89 Encounter for other orthopedic aftercare (principal); M25.511 Pain in right shoulder ==

== ENCOUNTER 2019-05-10 10:24 | Outpatient (REF) | payer MEDICARE, OTHER, SELFPAY ==
[2019-05-10 22:07] LABS: Creatine Kinase 107 U/L (39-308)
[2019-05-10 22:28] LABS: Hemoglobin A1C 7.2 % (4.5-6.2)
[2019-05-10 22:49] LABS: ESR 6 mm/hr (1-20)
[2019-05-12 10:35] LABS: Lyme Ab w Rflx to Lyme Confirm Negative
[2019-05-15 22:29] LABS: Anaplasma phagocytophilum Negative (Negative); B. miyamotoi PCR Negative (Negative); Babesia divergens/MO-1 Negative (Negative); Babesia duncani Negative (Negative); Babesia microti Negative (Negative); Ehrlichia chaffeensis Negative (Negative); Ehrlichia ewingii/canis Negative (Negative); Ehrlichia muris eauclairensis Negative (Negative)
== END 2019-05-10 10:44 ==
LOC: NCHCN 10:24
PROVIDERS: PCP Family Medicine; Visit Provider Family Medicine
DX: E11.9 Type 2 diabetes mellitus without complications (principal); M25.552 Pain in left hip; M25.50 Pain in unspecified joint; W57.XXXA Bitten or stung by nonvenomous insect and other nonvenomous arthropods, initial encounter
CPT/HCPCS: 82550; 85652; 87798; 83036; 86140; 86618

== ENCOUNTER 2019-05-11 09:24 | Outpatient (CLI) | payer MEDICARE, OTHER, SELFPAY ==
--- NOTE | 2019-05-11 09:55 | DI.RAD_ITS ---
SYMPTOMS/DIAGNOSIS: HIP PAIN, M25.559, RADICULAR SYNDROME, M54.10 LUMBAR SPINE: Comparison is made with [id number]. No compression fractures are seen. There are endplate osteophytes throughout. There is mild narrowing of the L 1 - 2, L 3 - 4 and L 4 - 5 discs. There is moderate to severe narrowing of the L 5 - S 1 disc space. There are facet degenerative changes greatest at L 4 - 5 and L 5 - S 1, causing neural foraminal narrowing. There is question of mild scoliosis vs patient positioning. IMPRESSION: Degenerative disc and facet joint changes, greatest at L 5 - S 1.
--- NOTE | 2019-05-11 10:50 | DI.RAD_ITS ---
SYMPTOMS/DIAGNOSIS: HIP PAIN, M25.559 PELVIS AND LEFT HIP: There is moderate to severe narrowing of the left hip joint space. There is periarticular spurring at the acetabulum and femoral head. There is moderate narrowing of the right hip joint space and moderate periarticular spurring. There is a defect of the superior left femur. There is spurring at the inferior SI joints as well as degenerative changes in the lower lumbar spine. IMPRESSION: Moderate degenerative changes of the right hip. Severe degenerative changes of the left hip with focal flattening of the superior femoral head.
== END 2019-05-11 09:44 ==
PROVIDERS: PCP Family Medicine; Visit Provider Family Medicine
DX: M25.552 Pain in left hip (principal); M16.0 Bilateral primary osteoarthritis of hip; M89.8X5 Other specified disorders of bone, thigh; M54.5 Low back pain; M51.37 Other intervertebral disc degeneration, lumbosacral region; M47.817 Spondylosis without myelopathy or radiculopathy, lumbosacral region
CPT/HCPCS: 72110; 73502

== ENCOUNTER → 2019-06-10 09:04 | Outpatient (BNVA) | payer MEDICARE, OTHER, SELFPAY | PROVIDERS: PCP Family Medicine; Referring Provider Family Medicine; Visit Provider Student in an Organized Health Care Education/Training Program | DX: M16.0 Bilateral primary osteoarthritis of hip (principal); E11.42 Type 2 diabetes mellitus with diabetic polyneuropathy; Z79.4 Long term (current) use of insulin | CPT/HCPCS: 99214 ==

== ENCOUNTER 2019-06-16 01:27 | Outpatient (CLI) | payer MEDICARE, OTHER, SELFPAY ==
--- NOTE | 2019-06-16 09:34 | DI.RAD_ITS ---
EXAM: RF JOINT INJECTION FLUORO GUID CLINICAL HISTORY: PAIN, BILATERAL PRIMARY OSTEOARTHRITIS OF HIP, M16.0. TECHNIQUE: 2D and realtime digital imaging was performed.. FINDINGS: Fluoroscopy was utilized by Dr. Espinal during right hip injection. Hard copy shows intra-articular injection of the right hip. FLUORO TIME: 14.9 SECONDS
--- NOTE | 2019-06-16 09:35 | DI.RAD_ITS ---
EXAM: RF JOINT INJECTION FLUORO GUID CLINICAL HISTORY: PAIN, BILATERAL PRIMARY OSTEOARTHRITIS OF HIP, M16.0. TECHNIQUE: 2D and realtime digital imaging was performed.. FINDINGS: Fluoroscopy was utilized by Dr. Espinal during left hip injection. Hard copy shows intra-articular injection of the hip. FLUORO TIME: 7.6 SECONDS
[2019-06-16] MEDS: Omnipaque 300 MG/ML 10 ML BTL IJ ×2 (09:39→09:43)
[2019-06-16] MEDS: Bupivacaine 0.5% Pres-Free 10 ML VIAL 5 ML IJ ×2 (09:40→09:44)
[2019-06-16] MEDS: methylPREDNISolone ACETATE 80 MG/ML VIAL IM ×2 (09:41→09:45)
--- NOTE | 2019-06-16 21:32 | W.PROCNOTE ---
Date of service: 06/16/19 Time of Service: 21:32 Procedure Note Date of procedure: 06/16/19 Procedure: Bilateral Hip Injection with Fluoroscopic Guidance Surgeon/Proceduralist/Physician: Abhi Espinal Procedure Diagnosis: Bilateral Hip Osteoarthritis Procedure Indications: Gal has had persistent pain of the RIGHT hip and groin. Noninvasive measures have been tried. To serve as both diagnostic and therapeutic, an injection under fluoroscopy was recommended. I had discussed the risks of the procedure and the patient elected to proceed. Procedure Description: Gal was greeted in the flouroscopy room. The correct side was identified and the consent was reviewed with the patient and signed. The patient was then placed in the supine position on the fluoroscopy table. The RIGHT hip was then prepped with Chloraprep. The anterolateral injection starting point was identiifed by bony landmarks and fluoroscopy. The skin and soft tissue in the tract of the injection was anesthetized with 1% Lidocaine. A spinal needle was then inserted deep into the hip joint at the level of the lateral femoral neck under fluoroscopic guidance. A small amount of Omnipaque solution was injected to confirm intraarticular placement. Once confirmed, the hip was injected with 6cc of 0.5% Bupivicaine and 80mg of Depo-Medrol. A bandaid was placed on the injection site. The LEFT hip was then prepped with Chloraprep. The anterolateral injection starting point was identiifed by bony landmarks and fluoroscopy. The skin and soft tissue in the tract of the injection was anesthetized with 1% Lidocaine. A spinal needle was then inserted deep into the hip joint at the level of the lateral femoral neck under fluoroscopic guidance. A small amount of Omnipaque solution was injected to confirm intraarticular placement. Once confirmed, the hip was injected with 6cc of 0.5% Bupivicaine and 80mg of Depo-Medrol. A bandaid was placed on the injection site. The patient tolerated the procedure well and noted improvement in pre-injection pain.
== END 2019-06-16 01:47 ==
PROVIDERS: PCP Family Medicine; Visit Provider Student in an Organized Health Care Education/Training Program
DX: M16.0 Bilateral primary osteoarthritis of hip (principal); M25.551 Pain in right hip; M25.552 Pain in left hip
CPT/HCPCS: 20610 ×2; 77002; J1040

== ENCOUNTER 2019-08-23 08:31 | Outpatient (CLI) | payer MEDICARE, OTHER, SELFPAY ==
--- NOTE | 2019-08-23 08:41 | DI.RAD_ITS ---
EXAM: XR PELVIS AP INDICATION: L hip OA. COMPARISON: XR hip LT complete AP pelvis from 05/11/2019 TECHNIQUE: 2D digital imaging was performed. FINDINGS: There is severe narrowing of the left hip joint space, periarticular sclerosis, as well as some randi ening and remodeling of the femoral head and adjacent acetabulum. There are moderate to severe degen erative changes of right hip. IMPRESSION: Severe degenerative changes of left hip. Moderate to severe degenerative changes of right hip.
== END 2019-08-23 08:51 ==
PROVIDERS: PCP Family Medicine; Visit Provider Physician Assistant
DX: M16.0 Bilateral primary osteoarthritis of hip (principal); M25.552 Pain in left hip; M16.12 Unilateral primary osteoarthritis, left hip; E11.9 Type 2 diabetes mellitus without complications; I10 Essential (primary) hypertension; J44.9 Chronic obstructive pulmonary disease, unspecified; Z01.818 Encounter for other preprocedural examination; Z01.812 Encounter for preprocedural laboratory examination
CPT/HCPCS: 36415; 80048; 85027; 86850; 86900; 86901; 72170; 83036

== ENCOUNTER 2019-08-23 08:53 | Outpatient (CLI) | payer MEDICARE, OTHER, SELFPAY ==
--- NOTE | 2019-08-23 08:25 | W.PREOPHP ---
Date of service: 08/23/19 Assessment and Plan Assessment and plan (1) Primary osteoarthritis of left hip: Status: Acute Assessment and plan: Left total hip replacement. Details of surgery were discussed with patient as well as risks and pertinent anatomy. All questions were answered. History of Present Illness History of Present Illness Chief Complaint: Left hip pain Narrative: Gal comes in today for a preop history and physical for a left total hip replacement. He states that he has pain with every step he takes on the left side. He has gotten to the point where he is dreading simple activities like grocery shopping because of the pain involved. He has resorted to walking with a cane. He also has trouble getting up from a seated position, as well as putting on shoes and socks. He has had an injection in the left hip which she states gave him pretty considerable relief, but only for short period of time. According to Dr. 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 Since he has failed conservative treatment and is in considerable pain, Dr. Espinal does offer a left total hip replacement. Gal is anxious to proceed. Pertinent Surgical Information Gal has had a cardiac work-up that was summarized in his previous history and physical for his right shoulder procedure on 01/21/2019. The procedure itself was done here on 01/25/2019 with no complications. He does have a history of diabetes and his last A1C was 7.2 in May. He will have a new one today. Patient denies history of hypertension, CVA, MD, angina, asthma, COPD, renal or liver disorders, hepatitis, bleeding disorders, immune or thyroid disorders. No complications from anesthesia. Review of Systems Constitutional Constitutional: Denies fever(s) ENT Ears, Nose, Mouth, and Throat: Denies dizziness and Denies sore throat Cardiovascular Cardiovascular: Denies chest pain, Denies palpitations and Denies dyspnea Respiratory Respiratory: Denies cough and Denies dyspnea Gastrointestinal Gastrointestinal: Denies abdominal pain, Denies melena, Denies hematochezia, Denies diarrhea, Denies nausea and Denies vomiting Genitourinary Genitourinary: Denies hematuria and Denies dysuria Neurologic Neurologic: Denies dizziness Endocrine Endocrine: Denies palpitations [facility] Social History Smoking/Tobacco Use Status: Former Tobacco Use Pack-years: 1 Alcohol Intake: current Alcohol Intake frequency: a few times a month Alcohol type: beer, wine and hard liquor Drug use: Never Substance use type: does not use Household members: children Do you feel safe at home: Yes Additional Social history: 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 He is a former alcoholic and now drinks approximately one alcoholic beverage per week. Meds Home Medications and Allergies Home Medications Medication Instructions Recorded Confirmed Type aspirin [Aspirin Low-Strength] 81 mg PO DAILY 04/07/14 06/10/19 History metformin 1,000 mg PO BID 04/07/14 06/10/19 History vitamin E 400 unit PO DAILY 04/07/14 06/10/19 History albuterol sulfate 2 puff INHALATION Q4H PRN inhaler 10/16/14 06/10/19 History calcium carbonate 1,200 mg PO DAILY tab.chew 11/08/14 06/10/19 History fluoxetine [Prozac] 40 mg PO DAILY tab-cap 11/08/14 06/10/19 History omeprazole 20 mg PO DAILY #30 tab-cap 11/25/17 06/10/19 Rx Novolog Mix 70-30FlexPen U-100 SUB-Q DIRECTED 01/05/18 06/10/19 History bisoprolol fumarate 10 mg PO DAILY #90 tab-cap 04/28/18 06/10/19 Rx lisinopril 10 mg PO DAILY #90 tab-cap 04/28/18 06/10/19 Rx amoxicillin 500 mg tablet 2,000 mg PO .PROIR TO DENTAL tab 01/04/19 06/10/19 History insulin detemir U-100 100 unit/mL 40 unit SC BID ml 01/04/19 06/10/19 History (3 mL) subcutaneous pen levothyroxine 75 mcg tablet 100 mcg PO DAILY tab 01/04/19 06/10/19 History acetaminophen 1,000 mg PO Q8H PRN #90 tab 01/25/19 06/10/19 Rx ibuprofen 600 mg PO TID PRN #60 tab 01/25/19 06/10/19 Rx doxycycline hyclate 100 mg PO BID #14 cap 04/06/19 06/10/19 Rx tramadol 50 mg tablet 50 mg PO BID PRN #14 tab 06/13/19 Rx Allergies Allergy/AdvReac Type Severity Reaction Status Date / Time ceftriaxone Allergy Severe ANAPHYLAXIS Unverified 06/10/19 09:35 Cephalosporins Allergy Severe Unverified 06/10/19 09:35 ciprofloxacin AdvReac Dizziness/L Unverified 06/10/19 09:35 ightheade meperidine HCl [From Demerol] AdvReac vomiting Unverified 06/10/19 09:35 morphine AdvReac vomiting Unverified 06/10/19 09:35 Exam HENMT Head: normocephalic and atraumatic General nose exam: no nasal discharge Throat: uvula midline and no uvular edema Other: soft palate rises symmetrically, no erythema Eyes Conjunctivae: conjunctivae normal Sclera: sclerae normal Pupils: PERRL Resp Effort & Inspection: normal respiratory effort Auscultation: clear to auscultation bilaterally and no wheezes Cardio Rate: regular rate Rhythm: regular rhythm Heart Sounds: S1 normal, S2 normal and no murmurs GI Palpation: soft, no hepatosplenomegaly and nontender Auscultation: normal bowel sounds
[2019-08-23 11:18] LABS: HCT 46.7 % (40.0-50.0); HGB 15.1 g/dL (13.5-17.5); Mean Corp. HGB Concentration 32.3 g/dL (32.0-36.0); Mean Corpuscular Hemoglobin 30.3 pg (27.0-33.0); Mean Corpuscular Volume 93.8 fL (80-95); Mean Platelet Volume 10.7 fL (8.0-11.0); Platelet Count 364 x1000/uL (130-400); RBC 4.98 m/cumm (4.50-6.00); RBC Distribution Width 13.6 % (11.8-14.1); White Blood Cell Count 7.59 k/cumm (4.4-10.8)
[2019-08-23 11:47] LABS: Hemoglobin A1C 8.1 % (4.5-6.2)
[2019-08-23 11:54] LABS: Anion Gap 10.1 mmol/L (3-11); BUN 22 mg/dL (7-18); CO2 26.9 mmol/L (21.0-32.0); CREATININE 0.82 mg/dL (0.70-1.30); Calcium 9.4 mg/dL (8.5-10.1); Chloride 106 mmol/L (98-107); Glucose 146 mg/dL (74-106); Potassium 4.8 mmol/L (3.5-5.1); Sodium 143 mmol/L (136-145)
== END 2019-08-23 09:13 ==
PROVIDERS: PCP Family Medicine; Visit Provider Student in an Organized Health Care Education/Training Program
DX: M25.552 Pain in left hip (principal); M16.12 Unilateral primary osteoarthritis, left hip; E11.9 Type 2 diabetes mellitus without complications; I10 Essential (primary) hypertension; J44.9 Chronic obstructive pulmonary disease, unspecified; Z01.818 Encounter for other preprocedural examination; Z01.812 Encounter for preprocedural laboratory examination
CPT/HCPCS: 36415; 80048; 85027; 86850; 86900; 86901; 83036; 85014; 85018

== ENCOUNTER 2019-09-02 05:53 | Emergency (ER) | payer MEDICARE, OTHER, SELFPAY | END 2019-09-02 05:57 | disposition other institution (70) | PROVIDERS: PCP Family Medicine | DX: Z53.21 Procedure and treatment not carried out due to patient leaving prior to being seen by health care provider (principal) ==

== ENCOUNTER 2019-09-02 05:57 | Inpatient (IN) | payer MEDICARE, OTHER, SELFPAY ==
[2019-09-02] VITALS (13 sets, daily range): BP systolic 84–139; BP diastolic 40–73; PULSE 56–65; RESP 11–18; TEMP 36.4–36.9; O2SAT 90–96
[2019-09-02] MEDS: Acetaminophen 500 MG TAB 1000 MG PO ×3 (06:58→20:39)
[2019-09-02] MEDS: Celecoxib 200 MG CAP 400 MG PO (06:58)
[2019-09-02] MEDS: Normal Saline 1,000 ML 80 ML IV ×2 (07:05→11:59)
[2019-09-02] MEDS: PIPERACILLIN/TAZO 4.5 GM in Normal Saline 100 ML IVPB (08:43)
[2019-09-02] MEDS: Bupivacaine 0.25% Pres-Free 30 ML VIAL (09:16)
[2019-09-02] MEDS: Ketorolac 30 MG/ML VIAL (09:18)
--- NOTE | 2019-09-02 09:39 | DI.RAD_ITS ---
EXAM: XR HIP LT IN OR CLINICAL HISTORY: left total hip TECHNIQUE: 2D and realtime digital imaging was performed. Fluoroscopy was provided in the OR COMPARISON: No exams were available for comparison FINDINGS: C-arm fluoroscopy was utilized by Dr. Espinal during placement of left hip prosthesis. Hard copy sh ow left hip prosthesis in position. The components appear well seated as visualized. IMPRESSION:
[2019-09-02] MEDS: Albuterol/Ipratropium 3 ML UPD VIAL (10:05)
[2019-09-02] MEDS: Normal Saline 1,000 ML 120 ML IV ×2 (12:40→20:35)
[2019-09-02] MEDS: Insulin Aspart 300 UNITS/3 ML PEN SC ×2 (13:13→17:18)
--- NOTE | 2019-09-02 13:14 | ROE_ITS ---
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 Depuy [place] Acetabular Component, 60mm 2. Depuy Acetabular Liner, [id number] 3. Depuy Corail Coxa Vara Femoral Stem, Size 14 4. Depuy Altrx Ceramic Femoral Head, Size 36+8.5mm Indications: I have seen Gal in clinic for symptoms of hip arthritis, confirmed with radiographic findings. He has exhausted nonoperative methods and was having significant limitations in daily function and desired better function and less pain. I discussed the technical details of a hip replacement. I explained the risks of the procedure to include, but not limited to, bleeding, infection, pain, stiffness, fracture, damage to nerves and vessels, damage to muscles and tendons, loosening, instability, leg length inequality, need for repeat procedure, blood clot and cardiopulmonary demise. Despite these risks, Gal elected to proceed. Findings: There was significant signs of arthritis throughout the hip. Circumferential femoral neck osteophytes were present and there was an area of delaminated cartilage from the superior femoral head. Procedure Description: Gal was greeted in the preoperative holding area where the correct side was identified and marked. The consent was reviewed with the patient and signed. The history and physical was updated. All questions were answered. He was taken back to the operating room. A spinal anesthestic was then administered. The patient was placed into the supine position on the operating room table. The patient was then positioned onto the ARCH table. Both feet were wrapped with Webrill cotton wrap along with Coban. The feet were placed in specialized boots for the ARCH table, well seated within the boot and secured. SCDs were applied. The patient was then slid down onto a peroneal post and the nonoperative leg was secured in a leg vasquez attached to the table. The operative side was placed into the ARCH table attachment and bed height and positioning was secured. A preoperative AP pelvis was obtained to serve as a reference for determining leg lengths. Prophylactic antibiotics in the form of Zosyn were administered. 1g of Tranxemic Acid was given intravenously within 30 minutes of incision. The left leg was then prepped with Chloraprep and draped in a standard fashion. A second prep was performed prior to placing the final shower-curtain type drape with Iodine impregnated skin protection. A timeout to confirm correct identity, side and site, procedure, allergies, anesthesia, and medical concerns was performed. An obliquely oriented incision was made starting lateral to the ASIS and running distal over the Tensor Fascia Iona (TFL) muscle belly toward the fibular head, approximately 10cm. The skin and soft tissue was dissected sharply, through Jayshree?s fascia, and to the fascia of the TFL. With the fascia and superior border of the IT band identified, the fascia was incised with a new knife just above any perforators from the IT band. The TFL muscle belly was bluntly dissected away from the fascia and moved laterally. The fat between TFL and rectus was identified to ensure the dissection was not within the TFL. Blunt dissection created space between abductors and the capsule and retractor was placed over the lateral femoral neck. The fibers of the rectus femoris tendon were identified and these were freed from the anterior capsule. A second cobra retractor was placed around the medial femoral neck. The TFL was further retracted laterally to show the deep fascia. Careful dissection through this layer identified three main crossing vessels of the lateral femoral circumflex. These were cauterized in multiple locations and then cut without any noticeable bleeding. The TFL was further released bluntly from the deep fascia to expose anterior hip capsule and fat The Dax orthopaedic retractor was then placed beneath the TFL and against sartorius and medial soft tissues to protect and retract the soft tissues. A T-capsulotomy was then performed starting at the superior lateral acetabulum and moving distally to the intertrochanteric ridge. These capsular flaps were tagged with a No. 1 Ethibond and elevated from within. The capsular flaps were released to the shoulder of the lateral neck and to the lesser trochanter to give excellent visualization of the proximal femur. A neck osteotomy was performed using an oscillating saw based on preoperative t emplates. This cut started in the shoulder and of the lateral neck and exited medially. The saw was at all times directed medially to avoid injury to the greater trochanter. 6cm of traction was applied to the leg and the osteotomy opened. The femoral head was removed with a corkscrew, making sure to protect the TFL on its exit. This was measured on the back table to determing the starting reamer size. Portions of the rectus obscuring visualization were minimally elevated off the superior acetabulum. An anterior retractor was placed over the anterior wall between capsule and labrum and held with the Gripper retraction system. A posterior retractor was placed similarly. This provided excellent visualization. The contents of the cotyloid fossa were removed with electrocautery and the labrum was removed with a knife. There was a notable floor osteophyte. There was a circumferential femoral neck osteophytes as well as delaminationof a portion of the superior femoral head. Acetabular reaming began with a 56mm reamer. This first reaming was directed anterior to posterior and medial to get down to the true floor. This was inspected and reamed until the true floor was reached. I then reamed sequentially up to a 60mm reamer where good fit was obtained. The larger reamers were oriented based on anatomical reference of the anterior and lateral maldonado to ensure proper abduction and anteversion. Positioning and size was confirmed with the fluoroscopy. A 60mm Depuy [place] acetabular component was selected. The acetabulum was reamed around the periphery with the selected acetabular size to prevent a rim fit. The deep tissues were irrigated. The acetabular component was then impacted in a position of about 45 degrees of abduction and 15-20 degrees of anteversion, using the patient?s anatomy as the ultimate landmark. Fluoroscopy was used to confirm this. There was excellent rail setter of the acetabular component and the inserting handle was removed. A primary acetabular screw was placed into the ilium by drilling through one of the holes in the acetabular component. This was measured and an approrpriately sized screw was placed with excellent purchase. It was checked not to be proud. A second screw was placed in a similar fashion. The acetabular liner, Depuy 66u74sm polyethylene liner, was inserted and lined up with the tines of the acetabular component. There was no soft tissue interposition. The liner was then impacted into position and confirmed to be well-seated. A portion of the kati-articular cocktail was then injected around the acetabulum into the capsule and periosteum. This cocktail consisted of 50cc of 0.25% Bupivicaine and 20cc of Exparel, expanded to a total of 120cc. Traction was released from the femur. The leg was rotated to 120 degrees. Any remaining medial capsule was released until the lesser trochanter was easily palpable. A Brito retractor was placed medially. The lateral capsule was further released into the shoulder to allow access to the greater trochanter. A Brito retractor was placed over the greater trochanter which allowed the trochanter to flip in front of the capsule for excellent exposure. The leg was brought down into maximal extension and 20 degrees of adduction while ensuring there was no impingement on the acetabulum. Any remnant capsule within the trochanter was released. Piriformis and obturator externis were identified and protected. There was excellent access to the proximal femur. The lateral neck remnant was removed with a rongeur. A blunt canal probe was used to identify the canal and trajectory for later broaching. A box osteotome initiated the broach course. A small curved rasp and a curved curette were used to work laterally. Broaching then began with a size 8 Corail broach. This was inserted manually around the trochanter and into the canal before mallet blows. The broach was seated to a few millimeters below the cut level based on the neck cut and the preoperative template. Sequential broaching was continued with [employer] impact broach system. There was some distal tightnes but no complete proximal fit so I performed flexible reaming of the femur. This started with 11mm and was performed up to 14mm. Broaching was continued until a tight fit was obtained with good rotational control of the femur. A trial coxa vara neck was inserted along with a +5 trial head. The leg was brought out of extension and adduction and then reduced with traction and internal rotation. The leg was stable anteriorly in a position of 30 degrees of extension and 90 degrees of external rotation. Fluoroscopy was used to ensure there was no fracture and the stem was seated well. Leg lengths were checked with an AP pelvis and pelvic reference points using bCommunities for computer assisted leg component confirmation. Once content with the desired offset and leg lengths, the leg was brought back into extension, external rotation and adduction. The periosteum and surrounding tissue was injected with remaining portion of the kati-articular cocktail. The proximal femur was irrigated as well as the deep tissues. The [employer]uy Corail COxa Vara stem, size 14, was then manually inserted into the proximal femur making sure to control rotation. It was then malleted into position with light blows, giving breaks to allow bone expansion and decrease risk of fracture. The selected Depuy Altrx Ceramic Head, size 36+8.5mm, was then placed onto the clean and dry trunnion and secured with impaction onto the tapered fit. The leg was brought back out of extension and adduction and reduced with traction and internal rotation. Stability was confirmed with no shuck at 90 degrees of external rotation and 30 degrees of extension. No impingement throug h range of motion arc. Final x-ray images were obtained with fluoroscopy to confirm adequate positioning and no intraoperative fracture. The deep tissues were thoroughly irrigated with Irrisept chlorhexadine solution. The second dose of TXA 1g was administered intravenously.The capsule was then reapproximated with the previously placed Ethibond sutures. The TFL fascia was finally closed with a No. 2 Stratafix, barbed suture. Deep tissues were then reapproximated with 0 Vicryl and a running 2-0 Vicryl. The skin was closed with a running 4-0 Monocryl in a subcuticular fashion. This was reinforced with skin glue. A Mepilex silver dressing was applied. At the end of the case, all counts were correct. Gal was transferred to the hospital bed without difficulty and suffering no apparent complication. Gal has a good prognosis. Physical therapy will start today and without restrictions, weight-bearing as tolerated. Aspirin 81mg BID will be used for DVT prophylaxis.
--- NOTE | 2019-09-02 13:40 | PT.INIE ---
Date of service: 09/02/19 Time of Service: 01:40 PT Notes Visit Reasons: LEFT HIP OA Physical Therapy Inpatient Initial Evaluation Date: 09/02/2019 Referring Doctor: Abhi Espinal MD PT Orders: PT CONSULT: Status post Ortho surgery Precautions: Fall. Standard. WBAT on left LE. Patient Profile/Admitting Diagnosis: Patient is a 69-year-old male with past medical history significant for diabetes mellitus and diabetic peripheral neuropathy who is status post left anterior total hip arthroplasty due to primary osteoarthritis of left hip on postoperative day 0. 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 Son Sixto and family lives on the first floor of the same house. Patient is independent with all aspects of ADLs without the need for adaptive equipment. He does use a single-point cane for all indoor and outdoor ambulation prior to surgery. He still drives. Equipment Owned/DME: 4 wheeled walker, front wheeled walker, single-point cane Subjective: Patient is agreeable to a PT consult. He reports of a pulling sensation on the lateral side of the left thigh that is not accompanied with pain. He complained of being mildly lightheaded upon sitting up on the edge of the bed for the first time after surgery. He hopes to go back to the same house as soon as he is medically cleared to do so. He reports having fallen once in the past 12 months. Nursing Faraz reported patient coming in with a soft blood pressure and heart rate onto the floor today. Objective: General Observation: Patient is seen resting in bed upon arrival of this PT. IV in the right UE. Mepilex Ag over surgical incision on the left hip. Bilateral TEDs on. Mental Status: Alert and oriented x4 Pain: Patient reported 5/10 pain at rest and with weight bearing during PT consult. Vital Signs: Negative for orthostatic hypotension ROM: Right Upper Extremity: Shoulder Flexion WFL. Shoulder abduction WFL. Elbow flexion WFL. Wrist flexion WFL. Opening and closing of hand WFL. Left Upper Extremity: Shoulder Flexion WFL. Shoulder abduction WFL. Elbow flexion WFL. Wrist flexion WFL. Opening and closing of hand WFL. Right Lower Extremity: Hip flexion WFL. Hip abduction WFL. Knee flexion WFL. Ankle dorsiflexion WFL. Ankle plantarflexion WFL. Left Lower Extremity: Hip flexion WFL. Hip abduction WFL. Knee flexion WFL. Ankle dorsiflexion WFL. Ankle plantarflexion WFL. Strength: Right Upper Extremity: Shoulder flexors 5/5. Shoulder abductors 5/5. Elbow flexors 5/5. Elbow extensors 5/5. [employer] strong. Left Upper Extremity: Shoulder flexors 5/5. Shoulder abductors 5/5. Elbow flexors 5/5. Elbow extensors 5/5. [employer] strong. Right Lower Extremity: Hip flexors 4/5. Hip abductors 4/5. Knee flexors 4/5. Knee extensors 4/5. Ankle dorsiflexors 5/5. Ankle plantarflexors 5/5. Left Lower Extremity:Hip flexors 5/5. Hip abductors 5/5. Knee flexors 5/5. Knee extensors 5/5. Ankle dorsiflexors 5/5. Ankle plantarflexors 5/5. Sensation: Intact as to pain and pressure on bilateral lower extremities. Bed Mobility/Transfers: Rolling CGA Supine to sit CGA Sit to supine CGA Sit to stand CGA Stand to sit CGA Bed to chair CGA Chair to bed CGA Gait: Patient tolerated short distance ambulation of 6 feet forward and also managed to back up for 6 feet to the edge of the bed with front wheeled walker and SBA of PT as well as CGA of nurse Ruth with no complaints of lightheadedness, headache, and chest pain. Patient did report a pulling sensation on the lateral side of the thigh that disappeared with rest. Trunk and BLE in good alignment. Donna decreased due to pain level. Balance: Static Sitting: Normal Dynamic Sitting: Normal Static Standing: Fair Dynamic Standing: Fair Special Tests: Mobility Limitations Standardized Measure [employer] AM-PAC 6 clicks Basic Mobility Inpatient Short Form: Raw Score: 18 CMS Score: 47% deficit Informed Consent/Education: Patient instructed in purpose of PT consult and plan of care. Patient was also instructed with hourly performance of muscle setting exercises for bilateral gluteals and bilateral quadriceps held for 5 seconds done for 10 times along with 20 repetitions of ankle pumping exercises on top of exercises he is good to be getting with physical therapy. Assessment: Patient is a 69-year-old male with past medical history significant for diabetes mellitus and diabetic peripheral neuropathy who is status post a left anterior total hip arthroplasty due to primary osteoarthritis of left hip on postoperative day 0. Patient has a premorbid independent level with a single-point cane. Lives very close to family members who are supportive. He is motivated to return to his prior level of function. Patient presents with clinical signs and symptoms consistent with current/admitting diagnoses that have resulted to mobility limitations, gait instability, generalized weakness, and impairment of motor control as demonstrated by the following impairment level findings: 1. Decreased strength to left hip major muscle groups 2. Impaired standing balance 3. Impaired activity tolerance Impairments are contributing to the following functional limitations: 1. Dependent bed mobility skills 2. Increased dependence with transfers 3. Inability to safely ambulate without assistive device and physical assistance 4. Increase completion time for mobility ADL performance 5. Increased fall risk 6. Inability to negotiate steps alone safely Patient is assessed as a 93229 moderate complexity based on the following: History: 15-erm[age]-year-old male with diabetes mellitus now status post anterior total hip arthroplasty on postoperative day 0 with impairment level findings, functional limitations, and [facility] CMS score of 47% deficit Examination: Demonstrable impairment in strength, balance, and range of motion with underlying impairments and functional limitations as documented above Presentation: Evolving Decision Makin moderate complexity Goals: Goals X1 week 1. Supine-Sit independent 2. Sit-Supine independent 3. Sit-Stand independent 4. Stand-Sit independent 5. Bed-Chair independent 6. Chair-Bed independent 7. Independent gait on level surface with use of least restrictive device for at least 200 feet without report of pain nor dyspnea 8. Independent stair negotiation while holding onto bilateral rails for at least 10 steps without report of pain nor dyspnea 9. Independent with home exercise program 10. Good static and dynamic standing balance/tolerance Plan of Care/Treatment Plan: 1-2x/day, 7 days/week x 1 week. Plan of care has been reviewed with the [facility] providing the service under Physical Therapy direction. Initiate Physical Therapy intervention for strengthening, bed mobility, transfers, gait, stairs, balance training, use of assistive device. DISCHARGE RECOMMENDATIONS: May benefit from skilled physical therapy services according to orthopedic surgeon's timeline recommendations. Patient will be educated and trained on home exercise program per JUAN exercise protocol in preparation for outpatient physical therapy services. TREATMENT CODE/TIME: 9716 2 x 30 minutes, 9753 0 x 15 minutes beginning at 13:40 PM Thank you very much for this referral. Francesca Cyr PT, DPT, CLT [facility] [place], [place]
[2019-09-02] MEDS: PIPERACILLIN/TAZO 3.375 GM in Normal Saline 50 ML IVPB ×2 (15:00→20:37)
[2019-09-02] MEDS: Celecoxib 100 MG CAP 200 MG PO (20:38)
[2019-09-02] MEDS: Aspirin E.C. 81 MG TABEC PO (20:39)
[2019-09-02] MEDS: Omeprazole 20 MG CAPCR PO (20:39)
[2019-09-02] MEDS: FLUoxetine 20 MG CAP 40 MG PO (20:39)
[2019-09-02] MEDS: metFORMIN C.R. 500 MG TABCR 1000 MG PO (20:39)
[2019-09-03] MEDS: PIPERACILLIN/TAZO 3.375 GM in Normal Saline 50 ML IVPB (01:51)
[2019-09-03 03:28] VITALS: BP 126/80; PULSE 64; RESP 19; TEMP 37; O2SAT 93
[2019-09-03] MEDS: Normal Saline 1,000 ML 120 ML IV (05:36)
[2019-09-03] MEDS: Levothyroxine 100 MCG TAB PO (05:36)
--- NOTE | 2019-09-03 07:05 | DSE_ITS ---
Date of service: 09/03/19 Time of Service: 10:06 DS: Diagnosis Discharge Diagnosis (1) Primary osteoarthritis of left hip: Status: Acute Discharge Plan Disposition Patient Disposition: HOME Condition: Good Discharge Details Reason For Visit: LEFT HIP OA Admit Date/Time: 09/02/19 05:57 Admit Provider: Abhi Espinal Attending Provider: Abhi Espinal Primary Care Provider: Beatriz Cotton V Hospital Course Hospital Course: Patient was admitted to the medical/surgical floor following the procedure. It was tolerated well without any notable medical, surgical, or anesthetic complications. Mobilization began postoperatively. The pereira catheter was removed and voiding spontaneously. Vitals were stable. Physical therapy worked with the patient and was cleared for discharge home. No acute medical issues. Home Meds and New Rx's Prescriptions: New celecoxib 200 mg capsule 200 mg PO BID PRN (Reason: pain) Qty: 60 RF: 1 aspirin 81 mg tablet,delayed release (DR/EC) 81 mg PO BID Qty: 60 RF: 0 acetaminophen 500 mg tablet 1,000 mg PO Q8H PRN (Reason: pain) Qty: 90 RF: 3 oxycodone 5 mg tablet 5 mg PO Q6H PRN PRNQty: 8 RF: 0 Continued Levemir FlexTouch U-100 Insuln 100 unit/mL (3 mL) insulin pen 40 unit SC BID RF: 0 amoxicillin 500 mg tablet 2,000 mg PO .PROIR TO DENTAL RF: 0 albuterol sulfate 8.5 GM HFA aerosol inhaler 2 puff Inhalation Q4H PRN RF: 0 calcium carbonate 500 MG tablet,chewable 1,200 mg PO DAILY RF: 0 fluoxetine [Prozac] 20 MG capsule 40 mg PO BID RF: 0 Novolog Mix 70-30FlexPen U-100 100 UNIT/1 ML insulin pen Sub-Q DIRECTED RF: 0 bisoprolol fumarate 10 MG tablet 10 mg PO DAILY Qty: 90 RF: 3 vitamin E 200 UNIT capsule 400 unit PO DAILY RF: 0 metformin 500 MG tablet extended release 24 hr 1,000 mg PO BID RF: 0 levothyroxine 75 mcg tablet 100 mcg PO DAILY RF: 0 lisinopril 10 MG tablet 5 mg PO DAILY RF: 0 omeprazole 20 MG capsule,delayed release(DR/EC) 20 mg PO QPM RF: 0 Discontinued aspirin [Aspirin Low-Strength] 81 MG tablet,chewable 81 mg PO DAILY RF: 0 acetaminophen 500 mg tablet 1,000 mg PO Q8H PRN (Reason: pain) Qty: 90 RF: 3 ibuprofen 600 mg tablet 600 mg PO TID PRNQty: 60 RF: 3 Discharge Instructions Additional Instructions: Dr. Espinal?s Total Hip Discharge Instructions Activity: The most important activity is to walk. You should try to take short walks a few times a day. You have no restrictions on movement or positioning, but do not try to force what you do. You will find some stiffness and weakness with hip flexion (lifting your knee). Do not try to strengthen this too early, continue to practice walking and stairs and this will come. - Outpatient physical therapy can be helpful to help return you to a normal gait and improve your flexibility and strength. This can start around 2 weeks. For some patients, it?s not necessary. Usually this is determined at the time of discharge or at the first post-operative visit. - You should wear the FARIDEH hose on both legs for 2 weeks. Dressing: Keep the surgical dressing in place for at least one week. After the first week it may be removed and replace with light gauze and tape or nothing. It may get wet after 3 days but avoid soaking the dressing. If it gets wet, just lightly pat dry. It is important to always keep some gauze between skin folds, especially when you are sitting. Spend some time with the wound exposed when you are lying flat as the incision does wrinkle onto itself. Medications: - You should take Tylenol and an anti-inflammatory Celebrex as your primary pain control medications - You have been prescribed a stronger pain medication Oxycodone for breakthrough pain, take as needed as prescribed. - You should continue to take your home stomach acid reduction agent, Omeprazole, to help reduce stomach acid and reflux. - You will be taking Aspirin 81mg twice a day for DVT prevention unless instructed otherwise. - If you have constipation you should take Colace or Miralax (both [id number]). It takes most people 3-4 days to have a bowel movement. It is imperative to follow your blood glucose closely and adjust your meal- associated dose if needed. Minimum goal is to keep your glucose levels below 200 no matter when checked. Follow-up: 2 weeks If you have any concerns or questions, you can call Dr. Espinal's office at [phone]. If there are any urgent concerns or medical or medication issues after office hours, feel free to reach out to Dr. Espinal on his cell phone at [phone]. Referrals: Abhi Espinal MD [ [facility] STAFF PHYSICIAN] - Activity:: Activity as Tolerated Equipment/Supplies:: Walker Diet:: Carb Counting Discharge Orders Discharge Orders: Discharge Order (Routine); Ordered 09/03/19 Ordered By: Abhi Espinal DS: Summary Status at Discharge Functional status at discharge: uses cane/walker Overall status at discharge: patient is progressing back to baseline Mental Status: mental status grossly normal Speech and Movement: speech and movement normal Mood: congruent mood Affect: normal affect Exam Psych Mental Status: mental status grossly normal Speech and Movement: speech and movement normal Mood: congruent mood Affect: normal affect DS: Data Vitals/I&O Vitals and I&O: Vital Signs Temperature 37.0 C 09/03/19 03:28 Temperature Source Tympanic 09/03/19 03:28 Pulse 64 09/03/19 03:28 Pulse Rhythm Regular 09/03/19 02:48 Respiratory Rate 19 09/03/19 03:28 Respiratory Effort Non-Labored 09/03/19 02:48 Respiratory Depth Normal 09/03/19 02:48 Respiratory Pattern Normal 09/03/19 02:48 Blood Pressure 126/80 09/03/19 03:28 Pulse Oximetry 93 L 09/03/19 03:28 Respiratory End-tidal CO2 37 09/02/19 12:15 Oxygen Delivery Method Room Air 09/03/19 03:28 Oxygen Flow Rate 0 09/03/19 03:28 Pain Level 0 09/03/19 03:28 Intake & Output 09/02/19 09/02/19 09/03/19 11:59 23:59 11:59 Intake Total 926.667 / 2335.334 1408.667 / 2335.334 994 / 994 Output Total 900 / 900 500 / 500 Balance 26.667 / 6603.095 7739.667 / 1435.334 494 / 494 Weight 125.6 kg Intake: IV 926.667 / 2095.334 1168.667 / 2095.334 994 / 994 Oral 240 / 240 Output: Urine 150 / 150 500 / 500 Estimated Blood Loss 750 / 750 Other: Urine Color Yellow Yellow Straw Urine Appearance Clear Clear Clear Urine Odor Normal Normal Comment patient felt like he was distended. He was bladder scanned for the amount of 22 ml Emesis Description None None Voiding Methods Toilet Urinal Data Completed and Pending Labs on day of discharge: Labs from last 24 hours 09/03/19 09/03/19 05:35 05:35 WBC Pending RBC Pending Hgb Pending Hct Pending MCV Pending MCH Pending MCHC Pending RDW Pending Plt Count Pending MPV Pending Sodium Pending Potassium Pending Chloride Pending Carbon Dioxide Pending Anion Gap Pending BUN Pending Creatinine Pending Estimated GFR/1.73 m2 Pending Glucose Pending Calcium Pending [facility] Medical History Asthma (Chronic) Chronic low back pain (Acute) Depression (Resolved) Diabetes Diabetic peripheral neuropathy (Acute) DJD of right AC (acromioclavicular) joint (Resolved) Essential tremor (Acute 11/21/14) Hyperlipemia Hypothyroidism (Chronic) 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 He is a former alcoholic and now drinks approximately one alcoholic beverage per week.
[2019-09-03 07:19] LABS: HCT 37.3 % (40.0-50.0); Mean Corp. HGB Concentration 32.2 g/dL (32.0-36.0); Mean Corpuscular Hemoglobin 30.5 pg (27.0-33.0); Mean Corpuscular Volume 94.7 fL (80-95); Mean Platelet Volume 10.8 fL (8.0-11.0); Platelet Count 312 x1000/uL (130-400); RBC 3.94 m/cumm (4.50-6.00); RBC Distribution Width 13.2 % (11.8-14.1); White Blood Cell Count 9.73 k/cumm (4.4-10.8)
[2019-09-03 07:26] LABS: Anion Gap 8.4 mmol/L (3-11); BUN 22 mg/dL (7-18); CO2 26.6 mmol/L (21.0-32.0); CREATININE 0.72 mg/dL (0.70-1.30); Chloride 108 mmol/L (98-107); Glucose 162 mg/dL (74-106); Potassium 4.1 mmol/L (3.5-5.1); Sodium 143 mmol/L (136-145)
[2019-09-03 07:45] VITALS: BP 128/68; PULSE 67; RESP 18; TEMP 36.7; O2SAT 95
[2019-09-03] MEDS: Lisinopril 10 MG TAB 5 MG PO (08:56)
[2019-09-03] MEDS: Bisoprolol 5 MG TAB 10 MG PO (08:58)
[2019-09-03] MEDS: Celecoxib 100 MG CAP 200 MG PO (08:58)
[2019-09-03] MEDS: metFORMIN C.R. 500 MG TABCR 1000 MG PO (08:59)
[2019-09-03] MEDS: Acetaminophen 500 MG TAB 1000 MG PO (08:59)
[2019-09-03] MEDS: FLUoxetine 20 MG CAP 40 MG PO (08:59)
[2019-09-03] MEDS: Aspirin E.C. 81 MG TABEC PO (08:59)
[2019-09-03] MEDS: Vitamin E 400 UNITS CAP PO (08:59)
[2019-09-03] MEDS: Insulin Aspart 300 UNITS/3 ML PEN SC ×2 (08:59→11:52)
[2019-09-03] MEDS: oxyCODONE 5 MG TAB PO ×2 (09:53→12:58)
--- NOTE | 2019-09-03 10:46 | PT.INTREAT ---
PT Notes Visit Reasons: LEFT HIP OA Inpatient Physical Therapy Treatment Note [facility] Date: 09/03/19 SUBJECTIVE: Gal states that he is doing well and ready to go home. He c/o some anterior hip discomfort/ pulling with standing and ambulation. OBJECTIVE: [] BED MOBILITY/TRANSFERS Sit-stand: SBA Stand-sit: SBA Bed-Chair: CGA/SBA Chair-bed: CGA/SBA GAIT Assistive Device: FWW Weight bearing: FWB Assist: CGA Distance: 50'x2 STAIRS: 2/ 6 steps and 3/ 4 steps with 2 hand rails and CGA. Step to gait pattern. ASSESSMENT: tolerated session well. Required cues for proper stair negotiation, leading with stronger LE going up etc. PLAN: possible d/c home later today. TREATMENT CODE/TIME: 30 min. [id number]
--- NOTE | 2019-09-03 13:09 | INITIAL_ITS ---
- If Service Date Differs Date of service: 09/03/19 Time of Service: 13:09 Care Management Initial Assess REASON FOR HOSPITALIZATION:: Left Hip Replacement PAST MEDICAL HISTORY/PAST SURGICAL HISTORY:: Medical History. Chronic low back pain (Acute). Hypothyroidism (Chronic). Asthma (Chronic). Diabetic peripheral neuropathy (Acute). Diabetes. Hyperlipemia. 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 Right rotator cuff tear (Chronic). Infe ction of prosthetic right knee joint (Acute 09/19/16). Essential tremor (Acute 11/21/14). Depression (Resolved). Infection of total right knee replacement (Resolved). Surgical History. S/P cholecystectomy (Acute). S/P lumbar spine operation (Acute). Status post total knee replacement, right (Acute) PREVIOUS FUNCTIONAL STATUS/SOCIAL/FAMILY SUPPORTS:: Arianna lives in [facility] with his son, Sixto and grandson. His , who he speaks fondly on, predeceased him. He also has an adult daughter, Dejah, who lives in [place], [place], who is the mother of his other grandson. 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 He is independent with ADL's. CURRENT FUNCTIONAL STATUS:: Arianna, who prefers to be called Gal, was sitting up in his chair eating lunch when CM met with him. He was pleasant and engaged in conversation. He asked for CM to go through an AD with him. SHON assisted Gal with filling out his AD and faxed it to [place] Advance directory registry, [employer], and provided Gal with copies and the original. He reported that he planned to go home today, per MD. He is agreeable to the plan. SHON will continue to follow. ADVANCE DIRECTIVES:: SHON assisted Gal with filling one out and faxed it to [place] [employer], [employer], put one on his chart and provided Gal with copies as well as the original. Has patient been provided with information about the portal?: No Did the patient sign up for the portal?: No CODE STATUS:: Full Code INSURANCE COVERAGE / FINANCIAL ISSUES:: [facility]/ [facility] Plan N CURRENT HOME/COMMUNITY SERVICES/EQUIPMENT:: Gal has a cane, which he uses regularly, a FWW and a 4WW PRIMARY CARE PHYSICIAN:: Beatriz Cotton MD POTENTIAL DISCHARGE NEEDS:: Evaluation for further needs, follow up appointments PATIENT/FAMILY EDUCATION NEEDS:: Review discharge instructions regarding medications and activity levels, discussion of self care needs including Ask Me Three ANTICIPATED BARRIERS TO DISCHARGE:: None identified at this time. TRANSPORTATION:: Gal's son, Sixto will drive him home via private vehicle. PLAN:: Gal will return home when medically cleared with no additional services. He will follow up with Ortho, as recommended. His son, Sixto will drive him home via private vehicle when ready. CM will continue to follow.
--- NOTE | 2019-09-03 13:25 | PDOC.CMDIS ---
- If Service Date Differs Date of service: 09/03/19 Time of Service: 13:25 LACE Index Scoring Tool - Questions: Length of Stay (in days): 2 Acuity (Admit via E.D.?): No Comorbidities: Diabetes w/o Complication E.D. Visits: 3 - Answers: Total Score: 6 Risk of Readmission: Low Risk Care Management Discharge Reason for Hospitalization: Left Hip Replacement Discharge Plan: Gal will return home with no additional services. He will follow up with Ortho, as recommended. His son, Sixto will drive him home via private vehicle when ready. He is agreeable to the plan. Patient/Family Education Needs: Review discharge instructions regarding activity levels and medications, discussion of self care needs including Ask Me Three
--- NOTE | 2019-09-06 15:45 | INDS_ITS ---
Date of service: 09/06/20 Time of Service: 15:45 PT Notes Visit Reasons: LEFT HIP OA Inpatient Physical Therapy Discharge Summary Dates: Dates of Service: 09/02/2019 and 09/03/2019 This is a clinical summary of care provided on the duration of dates listed above. No charge was made in the completion of this documentation. Referring Doctor: Abhi Espinal MD PT Orders: PT CONSULT: Status post Ortho surgery Precautions: Fall. Standard. WBAT on left LE. Patient Profile/Admitting Diagnosis: Patient is a 69-year-old male with past medical history significant for diabetes mellitus and diabetic peripheral neuropathy who is status post left anterior total hip arthroplasty due to primary osteoarthritis of left hip on postoperative day 1 on the day of hospital discharge. 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 Son Sixto and family lives on the first floor of the same house. Patient is independent with all aspects of ADLs without the need for adaptive equipment. He does use a single-p oint cane for all indoor and outdoor ambulation prior to surgery. He still drives. Equipment Owned/DME: 4 wheeled walker, front wheeled walker, single-point cane Subjective: NT Objective: General Observation: NT Mental Status: NT Pain: NT ROM: Right Upper Extremity: Shoulder Flexion WFL. Shoulder abduction WFL. Elbow flexion WFL. Wrist flexion WFL. Opening and closing of hand WFL. Left Upper Extremity: Shoulder Flexion WFL. Shoulder abduction WFL. Elbow flexion WFL. Wrist flexion WFL. Opening and closing of hand WFL. Right Lower Extremity: Hip flexion WFL. Hip abduction WFL. Knee flexion WFL. Ankle dorsiflexion WFL. Ankle plantarflexion WFL. Left Lower Extremity: Hip flexion WFL. Hip abduction WFL. Knee flexion WFL. Ankle dorsiflexion WFL. Ankle plantarflexion WFL. Strength: Right Upper Extremity: Shoulder flexors 5/5. Shoulder abductors 5/5. Elbow flexors 5/5. Elbow extensors 5/5. [employer] strong. Left Upper Extremity: Shoulder flexors 5/5. Shoulder abductors 5/5. Elbow flexors 5/5. Elbow extensors 5/5. [employer] strong. Right Lower Extremity: Hip flexors 4/5. Hip abductors 4/5. Knee flexors 4/5. Knee extensors 4/5. Ankle dorsiflexors 5/5. Ankle plantarflexors 5/5. Left Lower Extremity:Hip flexors 5/5. Hip abductors 5/5. Knee flexors 5/5. Knee extensors 5/5. Ankle dorsiflexors 5/5. Ankle plantarflexors 5/5. Sensation: Intact as to pain and pressure on bilateral lower extremities. Bed Mobility/Transfers: Rolling CGA Supine to sit CGA Sit to supine CGA Sit to stand CGA Stand to sit CGA Bed to chair CGA Chair to bed CGA Gait: 50 feet x 2 with FWW with WBAT on L LE using the FWW. Balance: Static Sitting: Normal Dynamic Sitting: Normal Static Standing: Fair Dynamic Standing: Fair Assessment: Patient is a 69-year-old male with past medical history significant for diabetes mellitus and diabetic peripheral neuropathy who is status post a left anterior total hip arthroplasty due to primary osteoarthritis of left hip on postoperative day 1 on day of hospital discharge. Patient has a premorbid independent level with a single-point cane. Lives very close to family members who are supportive. He is motivated to return to his prior level of function. Patient continues to present with clinical signs and symptoms consistent with current/admitting diagnoses that have resulted to mobility limitations, gait instability, generalized weakness, and impairment of motor control as demonstrated by the following impairment level findings: 1. Decreased strength to left hip major muscle groups 2. Impaired standing balance 3. Impaired activity tolerance Impairments are contributing to the following functional limitations: 1. Inability to safely ambulate without assistive device and physical assistance 2. Increase completion time for mobility ADL performance 3. Increased fall risk 4. Inability to negotiate steps alone safely Goals: Goals X1 week 1. Supine-Sit independent NOT MET 2. Sit-Supine independent NOT MET 3. Sit-Stand independent NOT MET 4. Stand-Sit independent NOT MET 5. Bed-Chair independent NOT MET 6. Chair-Bed independent NOT MET 7. Independent gait on level surface with use of least restrictive device for at least 200 feet without report of pain nor dyspnea NOT MET 8. Independent stair negotiation while holding onto bilateral rails for at least 10 steps without report of pain nor dyspnea NOT MET 9. Independent with home exercise program NOT MET 10. Good static and dynamic standing balance/tolerance NOT MET DISCHARGE RECOMMENDATIONS: May benefit from skilled physical therapy services according to orthopedic surgeon's timeline recommendations. Patient will be educated and trained on home exercise program per [facility]UAN exercise protocol in preparation for outpatient physical therapy services. TREATMENT CODE/TIME: NC. Thank you very much for this referral. Francesca Cyr PT, DPT, CLT [facility] [place], [place]
== END 2019-09-03 13:20 | disposition home or self-care (01) | DRG 470 ==
LOC: PDS 05:58 → MS 11:39
PROVIDERS: Admitting Provider Student in an Organized Health Care Education/Training Program; PCP Family Medicine; Visit Provider Student in an Organized Health Care Education/Training Program
PROC: 0SRB04A Replacement of Left Hip Joint with Ceramic on Polyethylene Synthetic Substitute, Uncemented, Open Approach (ICD-10-PCS; CPT 27130; principal; 2019-09-02 07:30)
DX: M16.12 Unilateral primary osteoarthritis, left hip (principal); M25.552 Pain in left hip; Z96.642 Presence of left artificial hip joint; E03.9 Hypothyroidism, unspecified; J45.909 Unspecified asthma, uncomplicated; E11.42 Type 2 diabetes mellitus with diabetic polyneuropathy; E78.5 Hyperlipidemia, unspecified; G25.0 Essential tremor; Z79.4 Long term (current) use of insulin; F32.9 Major depressive disorder, single episode, unspecified
CPT/HCPCS: 27130; 36415; 80048; 85027; 97162; 97530; NC; 73501; J1100; J1885; J2250; J2543; J3490; J7620

== ENCOUNTER 2019-09-16 11:09 | Outpatient (CLI) | payer MEDICARE, OTHER, SELFPAY ==
--- NOTE | 2019-09-16 11:30 | DI.RAD_ITS ---
EXAM: XR HIP LT COMPLETE AP PELVIS CLINICAL HISTORY: 1ST POST OP LEFT TOTAL HIP TECHNIQUE: COMPARISON: XR PELVIS AP from 08/23/2019 FINDINGS: Three views were obtained and show total hip joint replacement in position on the left. The componen ts appear well seated. There are moderate to severe degenerative changes of the right hip noted. IMPRESSION:
== END 2019-09-16 11:29 ==
PROVIDERS: PCP Family Medicine; Referring Provider Family Medicine; Visit Provider Student in an Organized Health Care Education/Training Program
DX: Z96.642 Presence of left artificial hip joint (principal); Z47.1 Aftercare following joint replacement surgery; M16.11 Unilateral primary osteoarthritis, right hip
CPT/HCPCS: 73502

== ENCOUNTER 2019-12-05 16:39 | Outpatient (REF) | payer MEDICARE, OTHER, SELFPAY ==
[2019-12-07 15:26] LABS: SARS-CoV-2 RNA Undetected (Undetected); SARS-CoV-2 Specimen Source Nasopharynx
== END 2019-12-05 16:59 ==
LOC: NCHCN 16:39
PROVIDERS: PCP Family Medicine; Visit Provider Physician Assistant
DX: Z20.828 Contact with and (suspected) exposure to other viral communicable diseases (principal); J06.9 Acute upper respiratory infection, unspecified
CPT/HCPCS: U0003

== ENCOUNTER 2020-01-05 09:56 | Outpatient (REF) | payer MEDICARE, OTHER, SELFPAY ==
[2020-01-05 19:00] LABS: HCT 47.1 % (40.0-50.0); HGB 14.8 g/dL (13.5-17.5)
[2020-01-05 19:14] LABS: TSH (W/Ref FT4) 4.12 uIU/mL (0.36-3.74)
[2020-01-05 19:48] LABS: FREE T4 0.74 ng/dL (0.76-1.46)
== END 2020-01-05 10:16 ==
LOC: NCHCN 09:56
PROVIDERS: PCP Family Medicine; Visit Provider Family Medicine
DX: E03.9 Hypothyroidism, unspecified (principal); E11.9 Type 2 diabetes mellitus without complications; R53.83 Other fatigue
CPT/HCPCS: 83036; 84439; 84443; 85014; 85018

== ENCOUNTER 2020-01-24 01:37 | Outpatient (CLI) | payer MEDICARE, OTHER, SELFPAY ==
--- NOTE | 2020-01-24 09:31 | DI.RAD_ITS ---
EXAM: XR LUMBAR SPINE COMPLETE CLINICAL HISTORY: RADICULAR SYNDROME OF LOWER LIMBS,M54.10. TECHNIQUE: 2D digital imaging was performed. COMPARISON: CR XR lumbar spine complete from 05/11/2019 FINDINGS: There are 5 lumbar type vertebral bodies. There is mild pseudo spondylolisthesis of L3 on L4. Mild retrolisthesis of L1 on L2 and L2 on L3 are noted. There is disc space narrowing and vacuum discs at L1-L2 and L5-S1. Endplate osteophytes are present throughout the lumbar spine. There are degenerat higinio changes of the facets throughout the lumbar spine. The findings are most marked from L3-4 throug h L5-S1. No acute fracture or subluxation is seen. No spondylolysis is present. Surgical clips are seen in the right upper quadrant of the abdomen likely reflecting prior cholecystectomy. The patien t has a left total hip replacement. Atherosclerosis is present. IMPRESSION: Moderate degenerative changes in the lumbar spine as described above. DATA REPOSITORY: RADIATION DOSE DELIVERED:
== END 2020-01-24 01:57 ==
PROVIDERS: PCP Family Medicine; Visit Provider Family Medicine
DX: M54.16 Radiculopathy, lumbar region (principal); M43.16 Spondylolisthesis, lumbar region; M47.26 Other spondylosis with radiculopathy, lumbar region; Z96.642 Presence of left artificial hip joint
CPT/HCPCS: 72110

== ENCOUNTER 2020-02-08 01:53 | Outpatient (CLI) | payer MEDICARE, OTHER, SELFPAY ==
--- NOTE | 2020-02-08 | DI.MRI_ITS ---
EXAM: MR LUMBAR SPINE WO CLINICAL HISTORY: ACUTE BACK PAIN M54.89, LT HIP PAIN M25.559. TECHNIQUE: Multiplanar multisequence MRI was performed. MR examination of the lumbosacral spine was performed according to the usual protocol. COMPARISON: CR XR LUMBAR SPINE COMPLETE from 01/24/2020 FINDINGS: No significant bony signal abnormality seen apart from minimal peridiscal vertebral signal changes at L5-S1 consistent with disc degeneration. There is signal loss in the intervertebral discs throughou t the lumbar region consistent with disc degeneration. There is loss of height of intervertebral dis c at L5-S1. At the T11-12 level, there is prominent ligamentum flavum and question of narrowing of the left neura l foramen and right neural foramen. At the T12-L1 level, there is narrowing of the right neural foramen. At the L1-2 level, there is bilateral neural foraminal narrowing and there is a moderate disc bulge. Slightly increased prominence of the disc contour to the left of midline appears to represent a smal l focal disc herniation. No gross neural impingement. No central canal spinal stenosis. At the L2-3 level, there are no significant findings. At L3-4, there is minimal anterior pseudospondylolisthesis. There is deformity of the vertebral lami na, which appears to represent a prior laminectomy, please correlate with surgical history. There is deformity of the spinal canal on the left laterally and there is narrowing of the left lateral reces s at this level. The neural foramina appear intact. The left L4 nerve root could be impinged at thi s level, please correlate with neurologic examination. At L4-5, there is a small central disc herniation. No neural foraminal narrowing, no central canal s richard stenosis. At L5-S1, there is mild neural foraminal narrowing bilaterally. There is a disc bulge without eviden ce of disc herniation. No central canal spinal stenosis. IMPRESSION: Multilevel findings as described above. Most prominent findings are at L3-4, presumed old L3-4 oliver ectomy with deformity of left lateral wall of the spinal canal and narrowing of the left lateral rece ss, L4 nerve root may be impinged. Please correlate clinically. DATA REPOSITORY:
== END 2020-02-08 02:13 ==
PROVIDERS: PCP Family Medicine; Visit Provider Family Medicine
DX: M54.5 Low back pain (principal); M25.552 Pain in left hip; M51.37 Other intervertebral disc degeneration, lumbosacral region; M54.6 Pain in thoracic spine; M43.16 Spondylolisthesis, lumbar region
CPT/HCPCS: 72148

== ENCOUNTER 2020-03-26 09:25 | Outpatient (CLI) | payer MEDICARE, OTHER, SELFPAY ==
--- NOTE | 2020-03-26 14:01 | DI.RAD_ITS ---
EXAM: XR LUMBAR SPINE COMPLETE CLINICAL HISTORY: BACK PAIN,ANTEROLISTHESIS OF L 3-4,? EVIDENCE OF INSTABILITY. TECHNIQUE: 2D digital imaging was performed. COMPARISON: CR XR LUMBAR SPINE COMPLETE from 01/24/2020 FINDINGS: There are 5 lumbar type vertebral bodies. No spondylolysis is seen. There is stable alignment the l umbar spine. Stable anterolisthesis of L3 on L4 and retrolisthesis of L1 on L2 and L2 on L3 are agai n noted. Stable degenerative changes are seen in the spine. No acute fractures or subluxations are seen. The patient has had a prior left total hip replacement. IMPRESSION: Stable appearance of the lumbar spine. Flexion and extension views of the lumbar spine may be consid ered for further evaluation. DATA REPOSITORY: RADIATION DOSE DELIVERED:
== END 2020-03-26 09:45 ==
PROVIDERS: PCP Family Medicine; Visit Provider Physician Assistant Medical
DX: M54.9 Dorsalgia, unspecified (principal); M43.16 Spondylolisthesis, lumbar region; Z96.642 Presence of left artificial hip joint; M47.9 Spondylosis, unspecified
CPT/HCPCS: 72110

== ENCOUNTER 2020-04-09 11:57 | Outpatient (CLI) | payer MEDICARE, OTHER, SELFPAY ==
--- NOTE | 2020-04-09 | DI.RAD_ITS ---
EXAM: XR LUMBAR SPINE COMPLETE CLINICAL HISTORY: EVALUATE SPONDYLOLISTHESIS,M43.16 TECHNIQUE: COMPARISON: CR XR LUMBAR SPINE COMPLETE from 03/26/2020 FINDINGS: Six views were obtained. There is an apparent L5-S1 laminectomy. There are degenerative changes of the endplates and facet joints throughout the lumbar region with loss of height of multiple intervert ebral discs particularly at L5-S1.. Minimal anterolisthesis/pseudo spondylolisthesis of L3 on L4, un changed from 03/26/2020. No acute fracture. IMPRESSION: Stable appearance of the spine with marked degenerative changes.
== END 2020-04-09 12:17 ==
PROVIDERS: PCP Family Medicine; Visit Provider Neurological Surgery
DX: M43.16 Spondylolisthesis, lumbar region (principal)
CPT/HCPCS: 72110

== ENCOUNTER 2020-05-17 14:55 | Outpatient (REF) | payer MEDICARE, OTHER, SELFPAY ==
[2020-05-17 19:52] LABS: HCT 45.6 % (40.0-50.0); HGB 14.2 g/dL (13.5-17.5); MCH 29.8 pg (27.0-33.0); MCHC 31.1 % (32.0-36.0); MCV 95.8 fL (80-95); MPV 10.9 fL (8.0-11.0); Platelet Count 341 10^3/uL (130-400); RBC 4.76 10^6/uL (4.36-5.78); RDW 13.2 % (11.8-14.1); RDW-SD 46.5 fL; WBC 7.99 10^3/uL (4.4-10.8)
[2020-05-17 20:32] LABS: ALT 32 U/L (16-63); AST 15 U/L (15-37); Albumin 3.7 g/dL (3.4-5.0); Alkaline Phosphatase 61 U/L (46-116); Anion Gap 7.6 mmol/L (3-11); BUN 22 mg/dL (7-18); Bilirubin, Total 0.2 mg/dL (0.2-1.0); CO2 28.4 mmol/L (21.0-32.0); CREATININE 0.89 mg/dL (0.70-1.30); Calcium 8.9 mg/dL (8.5-10.1); Calculated LDL 63 mg/dL (<100); Chloride 103 mmol/L (98-107); Cholesterol 148 mg/dL (<200); Glucose 164 mg/dL (74-106); HDL Cholesterol 30 mg/dL (40-60); Potassium 4.5 mmol/L (3.5-5.1); Sodium 139 mmol/L (136-145); TSH (W/Ref FT4) 3.68 uIU/mL (0.36-3.74); Total Protein 7.1 g/dL (6.4-8.2); Triglyceride 275 mg/dL (<150)
[2020-05-17 20:48] LABS: Hemoglobin A1C 7.6 % (<5.7)
== END 2020-05-17 15:15 ==
LOC: NCHCN 14:55
PROVIDERS: PCP Family Medicine; Visit Provider Family Medicine
DX: E11.9 Type 2 diabetes mellitus without complications (principal); E03.9 Hypothyroidism, unspecified; R53.83 Other fatigue; E78.5 Hyperlipidemia, unspecified
CPT/HCPCS: 80053; 80061; 85027; 83036; 84443

== ENCOUNTER 2020-06-20 09:12 | Emergency (ER) | payer MEDICARE, OTHER, SELFPAY ==
[2020-06-20 09:19] VITALS: BP 145/91; PULSE 64; RESP 20; TEMP 36.3; O2SAT 96
--- NOTE | 2020-06-20 09:22 | W.ED.GENAD ---
Discharge Plan Disposition Patient Disposition: HOME Condition: Stable Discharge Details Clinical Impression: Knee pain Primary Care Provider: Beatriz Cotton V ED Provider: [place] Home Meds and New Rx's Prescriptions: New oxycodone-acetaminophen [Percocet] 5-325 mg tablet 1 tab PO Q8H PRNQty: 8 RF: 0 Continued Levemir FlexTouch U-100 Insuln 100 unit/mL (3 mL) insulin pen 40 unit SC BID RF: 0 amoxicillin 500 mg tablet 2,000 mg PO .PROIR TO DENTAL RF: 0 albuterol sulfate 8.5 GM HFA aerosol inhaler 2 puff Inhalation Q4H PRN RF: 0 calcium carbonate 500 MG tablet,chewable 1,200 mg PO DAILY RF: 0 fluoxetine [Prozac] 20 MG capsule 40 mg PO BID RF: 0 insulin asp prt-insulin aspart [Novolog Mix 70-30FlexPen U-100] 100 UNIT/1 ML insulin pen Sub-Q DIRECTED RF: 0 bisoprolol fumarate 10 MG tablet 10 mg PO DAILY Qty: 90 RF: 3 vitamin E 200 UNIT capsule 400 unit PO DAILY RF: 0 metformin 500 MG tablet extended release 24 hr 1,000 mg PO BID RF: 0 levothyroxine 75 mcg tablet 100 mcg PO DAILY RF: 0 simvastatin 10 mg Tablet 10 mg PO DAILY RF: 0 lisinopril 10 MG tablet 5 mg PO DAILY RF: 0 omeprazole 20 MG capsule,delayed release(DR/EC) 20 mg PO QPM RF: 0 aspirin 81 mg tablet,delayed release (DR/EC) 81 mg PO BID Qty: 60 RF: 0 Discharge Instructions Instructions: Knee Pain (ED) Additional Instructions: X-ray and ultrasound are normal. Wear knee wrap, use either cane, crutches, walker at home as tolerated. Rest, elevate, cool and/or warm compresses every 2 hours for 20 minutes. Percocet as directed, remember this may cause drowsiness, constipation, and addiction. Please watch for new or worsening symptoms and return to the ER for any concerns. I do recommend that if you are not doing significantly better in the next week, that you reach out to your orthopedic for reevaluation. Please follow-up with pain management on the second as already scheduled. Medical Decision Making 70-year-old gentleman with chronic back pain, history of back surgery, hip replacement, right total knee replacement, chronic pain, presents to the ER reporting left medial knee pain that began yesterday when trying to get out of his chair. He denies recent illness or trauma. No obvious injury. He denies chest pain, shortness of breath, rash, fever. Clinically I believe this to be soft tissue in nature however I do believe obtaining an x-ray for further evaluation of his knee discomfort as well as an ultrasound to rule out DVT is reasonable. Patient and family are comfortable with this plan. Patient will be given a single Percocet in the meantime. Ultrasound and knee x-ray 4 view read by radiology is unremarkable. No bony abnormality, no DVT. Discussed x-ray and ultrasound findings with patient and family. Knee will be wrapped with an Darvin wrap for additional stability and compression. Patient already is using a cane and has a walker and crutches at home. Patient does have an outpatient orthopedic that he sees for his other orthopedic issues and is scheduled to see pain management for the first time for injections on July 09. We discussed the importance of watching for new, worsening, evolving symptoms and returning immediately to the ER, otherwise follow-up as an outpatient as already scheduled and he will reach out to his orthopedic team as well. Medical Records Medical records reviewed: Yes I reviewed the patient's medical records. HPI General Mode of arrival: ambulatory. Date/Time Provider Initiated Documentation: 06/20/20 09:18. Limitations to Documentation: no limitations. Information obtained by: patient and family. HPI Narrative: This is a 70-year-old gentleman who presents to the ER with his family for evaluation of left knee pain. He has a past medical history that includes asthma, chronic low back pain, depression, diabetes, diabetic peripheral neuropathy, back surgery, right total knee replacement, osteoarthritis of both hips. He is followed by orthopedics and has previously done physical therapy. He is scheduled to be seen by pain management on July 09 for his ongoing back and hip pain. He typically walks with a cane. He states that yesterday he ran some errands and did some chores but denies any obvious trauma. Upon standing up from a chair noticed moderate-severe left medial knee pain. He is able to bear weight but this does make the pain worse. He denies fever or rash. Other than his chronic pain, denies any other joint pain today. Reports baseline neuropathy but denies new numbness, tingling, weakness. He does take an anti-inflammatory daily but otherwise does not take anything for pain control. He reports that this feels different than his chronic pain. He denies chest pain, shortness of breath, history of DVT or PE. Related Data Home Medications Medication Instructions Recorded Confirmed metformin 1,000 mg PO BID 04/07/14 06/20/20 vitamin E 400 unit PO DAILY 04/07/14 06/20/20 albuterol sulfate 2 puff INHALATION Q4H PRN inhaler 10/16/14 06/20/20 calcium carbonate 1,200 mg PO DAILY tab.chew 11/08/14 06/20/20 fluoxetine [Prozac] 40 mg PO BID tab-cap 11/08/14 06/20/20 insulin asp prt-insulin aspart SUB-Q DIRECTED 01/05/18 09/16/19 [Novolog Mix 70-30FlexPen U-100] bisoprolol fumarate 10 mg PO DAILY #90 tab-cap 04/28/18 06/20/20 amoxicillin 500 mg tablet 2,000 mg PO .PROIR TO DENTAL tab 01/04/19 06/20/20 insulin detemir U-100 100 unit/mL 40 unit SC BID ml 01/04/19 06/20/20 (3 mL) subcutaneous pen levothyroxine 75 mcg tablet 100 mcg PO DAILY tab 01/04/19 06/20/20 lisinopril 5 mg PO DAILY 08/23/19 06/20/20 omeprazole 20 mg PO QPM 08/23/19 06/20/20 aspirin 81 mg PO BID #60 tab 09/03/19 06/20/20 oxycodone-acetaminophen [Percocet] 1 tab PO Q8H PRN #8 tab 06/20/20 simvastatin 10 mg PO DAILY 06/20/20 06/20/20 Previous Rx's Medication Instructions Recorded bisoprolol fumarate 10 mg PO DAILY #90 tab-cap 04/28/18 aspirin 81 mg PO BID #60 tab 09/03/19 oxycodone-acetaminophen [Percocet] 1 tab PO Q8H PRN #8 tab 06/20/20 Allergies Allergy/AdvReac Type Severity Reaction Status Date / Time ceftriaxone Allergy Severe ANAPHYLAXIS Unverified 09/16/19 11:06 Cephalosporins Allergy Severe Anaphylaxsi Unverified 09/16/19 11:06 s ciprofloxacin AdvReac Dizziness/L Unverified 09/16/19 11:06 ightheade meperidine HCl [From Demerol] AdvReac vomiting Unverified 09/16/19 11:06 morphine AdvReac vomiting Unverified 09/16/19 11:06 General CASIMIRO: 4 Review of Systems Constitutional Constitutional: Denies fever(s) Cardiovascular Cardiovascular: Denies chest pain and Denies dyspnea Respiratory Respiratory: Denies cough and Denies dyspnea Musculoskeletal Musculoskeletal: Reports back pain (Chronic), Denies myalgias, Reports arthralgias (Left knee, medial aspect), Denies joint swelling, Denies muscle weakness, Denies numbness and Reports tingling (Baseline) Integumentary/Breasts Skin/Breast: Denies rash Neurologic Neurologic: Denies numbness [facility] Medical History (Updated 06/20/20 @ 11:09 by MEGAN Meadows) Asthma Chronic low back pain Depression Diabetes Diabetic peripheral neuropathy DJD of right AC (acromioclavicular) joint Essential tremor (11/21/14) Hyperlipemia Hypothyroidism 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 Right rotator cuff tear Injection under fluoroscopy: 11/04/18 Status post rotator cuff repair DOS: 01/25/2019 Surgical History S/P cholecystectomy S/P lumbar spine operation x2 Status post right rotator cuff repair (~01/25/19) Repair of supraspinatus, distal clavicle excision, biceps tenotomy Dr. 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 He is a former alcoholic and now drinks approximately one alcoholic beverage per week. Exam Const General: cooperative, healthy appearing, comfortable and no acute distress Orientation: alert and awake [facility] Head: normal to inspection, normocephalic and atraumatic Mouth: moist mucous membranes Eyes General: appearance normal, both eyes and all related structures Conjunctivae: conjunctivae normal Sclera: sclerae normal Neck Neck: normal visual inspection, full ROM, trachea midline and supple Resp Effort & Inspection: normal respiratory effort and able to speak in complete sentences Auscultation: clear to auscultation bilaterally Cardio Rate: regular rate Rhythm: regular rhythm GI Inspection: obesity Palpation: soft and nontender Back/Spine/Pelvis Back: back tenderness (Diffuse mild lumbar discomfort) Skin General skin exam: no rashes or lesions noted Neuro General: patient alert, patient awake, moves all extremities and no focal motor deficits Cognition: normal cognition Speech: speech normal Gait: antalgic Motor: muscle tone normal throughout and strength 5/5 throughout Sensory Exam: no sensory deficits noted Extrem General: normal to inspection, full ROM and capillary refill normal Left lower extremity: normal to inspection, full ROM, normal capillary refill and knee Details: normal to inspection, tenderness (Diffuse medial aspect), normal ROM, knee ligament exam abnormal Details: varus stress test Details: pain noted and other (Negative Homans' sign); no swelling Psych Appearance: grossly normal Mental Status: mental status grossly normal
--- NOTE | 2020-06-20 09:45 | DI.RAD_ITS ---
EXAM: XR KNEE LT 4V+ CLINICAL HISTORY: medial pain upon standing yesterday. TECHNIQUE: 2D digital imaging was performed. COMPARISON: No exams were available for comparison FINDINGS: BONES: No acute fracture is present. No bony destructive lesion is seen. JOINTS: The knee is normally aligned. No joint effusion is seen. SOFT TISSUE: Normal. IMPRESSION: Normal radiographs of the left knee. DATA REPOSITORY: RADIATION DOSE DELIVERED:
--- NOTE | 2020-06-20 09:45 | DI.US_ITS ---
EXAM: US LOWER EXTREMITY VENOUS LT CLINICAL HISTORY: medial/posterior knee pain, no truama TECHNIQUE: Left lower extremity venous ultrasound performed using grayscale, color-flow, and spectra l Doppler analysis. COMPARISON: No exams were available for comparison FINDINGS: The left common femoral, femoral and popliteal veins demonstrate normal compressibility, augmentation , and color Doppler. The posterior tibial veins are patent. The saphenofemoral junction is unremarka ble. There is no evidence of a Ji cyst. The soft tissues are unremarkable. IMPRESSION: No DVT. Findings were discussed with the emergency department on the date of the examination. DATA REPOSITORY:
[2020-06-20] MEDS: oxyCODONE 5 mg/Acetaminophen 325 mg TAB 1 TAB PO (10:50)
[2020-06-20 10:51] VITALS: BP 128/59; PULSE 54; RESP 20; O2SAT 95
== END 2020-06-20 11:21 | disposition home or self-care (01) ==
PROVIDERS: Emergency Provider Physician Assistant; PCP Family Medicine
DX: M25.562 Pain in left knee (principal); E11.9 Type 2 diabetes mellitus without complications; Z79.4 Long term (current) use of insulin
CPT/HCPCS: 99284; 73564; 93971

== ENCOUNTER 2020-06-29 09:30 | Outpatient (CLI) | payer MEDICARE, OTHER, SELFPAY | END 2020-06-29 09:50 | PROVIDERS: PCP Family Medicine; Visit Provider Student in an Organized Health Care Education/Training Program | DX: M22.42 Chondromalacia patellae, left knee (principal); M23.92 Unspecified internal derangement of left knee; E11.42 Type 2 diabetes mellitus with diabetic polyneuropathy; Z79.4 Long term (current) use of insulin | CPT/HCPCS: 20610; 99213; J1040 ==

== ENCOUNTER 2020-07-26 11:53 | Outpatient (CLI) | payer MEDICARE, OTHER, SELFPAY ==
--- NOTE | 2020-07-26 06:00 | DI.RAD_ITS ---
EXAM: XR PAIN CLINIC LUMBAR SP 2V CLINICAL HISTORY: Dx: Lumbar Radiculopathy TECHNIQUE: 2D and realtime digital imaging was performed. CONTRAST MATERIAL: Refer to procedure report. COMPARISON: No exams were available for comparison FINDINGS: Fluoroscopy was provided for Dr. Austin during the performance of a transforaminal epidural steroid in jection. Please refer to the procedure report for complete details. Fluoro time: 34.2 seconds IMPRESSION:
[2020-07-26 12:03] VITALS: BP 108/52; PULSE 54; RESP 20; TEMP 37.3; O2SAT 96
[2020-07-26] MEDS: Omnipaque 240 MG/ML 50 ML BTL IJ (12:38)
[2020-07-26] MEDS: Dexamethasone Sod. Phos./Pres-Free 10 MG/ML VIAL IJ (12:38)
--- NOTE | 2020-07-26 12:42 | PDOC.PAIN ---
Pain Clinic Procedure Note Procedure Note Procedure Note: LUMBAR / SACRAL TRANSFORAMINAL INJECTION NATIVIDAD DIANA [facility] a transforaminal nerve root block and steroid injection. COMMENTS: He has had lumbar spine surgery X 2. I did review his 07/09/20 evaluation with Ms. Danielle in our clinic and his 02/08/20 lumbar spine MRI which reveals a left sided L4 nerve root compression. DX: Lumbosacral radiculopathy Patient was interviewed and the medical record reviewed. There were no medical, pharmacologic, radiographic or other structural contraindications to attempting fluoroscopically guided transforaminal nerve root block and epidural steroid injection. Risks and expected side effects as well as potential benefit of the procedure were reviewed and voiced concerns addressed. The printed consent form was signed and witnessed. Standard time-out procedure was performed. Patient was placed in the prone position on the fluoroscopy table and automated blood pressure cuff and pulse oximeter applied. Fluoroscopy was utilized to identify the left L4 neural foramen between L4 and L5. A skin lindsay was made for the needle insertion site. A Chlorhexadine prep was carried out, and sterile drapes were applied. Local anesthesia was achieved in the skin and subcutaneous tissues. A 22 gauge curved tip spinal needle was then inserted, advanced with fluoroscopic guidance into the neural foramen, confirmed on the lateral view. After negative aspiration, 2 ml of Omnipaque 240 was injected confirming position in A/P and lateral views. This showed a good spread of dye transforaminally into the epidural space. There was no vascular update with contrast injection under continuous fluoroscopy and digital substraction. 15 mg of Dexamethasone was injected, followed by 0.5 ml of 1% Xylocaine flush for the nerve root block, as well. There was no unusual discomfort expressed.The needle was withdrawn. The patient tolerated the procedure well. A Band-Aid was applied. Vital signs were stable throughout the procedure and were as recorded in nursing records. If given, dosages of intravenous drugs for anxiolysis and analgesia were documented in nursing records. Follow up plans and appointments were discussed. Post procedure instruction was given as documented in nursing records and patient was discharged in the care of an identified mobile lounge driver. COMMENTS: If this procedure is helpful, it can be completed up to 3 times per 12 months. CC: Beatriz Cotton V
[2020-07-26 12:54] VITALS: BP 112/68; PULSE 60; RESP 18; O2SAT 96
== END 2020-07-26 12:13 ==
PROVIDERS: PCP Family Medicine; Visit Provider Internal Medicine
DX: M54.17 Radiculopathy, lumbosacral region (principal)
CPT/HCPCS: 64483; 72100; Q9967

== ENCOUNTER 2020-09-03 19:01 | Observation (INO) | payer MEDICARE, OTHER, SELFPAY ==
[2020-09-03] VITALS (48 sets, daily range): BP systolic 104–152; BP diastolic 42–92; PULSE 56–74; RESP 14–24; TEMP 36.4–36.9; O2SAT 91–98
--- NOTE | 2020-09-03 19:00 | RT.EKG_ITS ---
APPROVED REPORT Exam: Resting ECG Patient Location: E HR:61 bpm ECG Measurements Heart Rate 61 AXIS HI 165 P 17 QRSd 113 QRS 26 QT 461 T 33 QTc 465 Conclusion Sinus rhythm...normal P axis, V-rate 60- 99 Ventricular premature complex...V complex w/ short R-R interval Probable left atrial enlargement...P >50mS, <-0.10mV V1
--- NOTE | 2020-09-03 19:06 | W.ED.GENAD ---
Discharge Plan Disposition Patient Disposition: [facility] INPATIENT Condition: Stable Discharge Details Chief Complaint: Chest Pain Clinical Impression: Chest pain Primary Care Provider: Beatriz Cotton V ED Provider: Jessica Colvin Home Meds and New Rx's Prescriptions: No Action Levemir FlexTouch U-100 Insuln 100 unit/mL (3 mL) insulin pen 44 unit SC BID RF: 0 amoxicillin 500 mg tablet 2,000 mg PO .PROIR TO DENTAL RF: 0 cyanocobalamin (vitamin B-12) 1,000 mcg Tablet 1,000 mcg PO DAILY RF: 0 meclizine 25 mg Tablet 25 mg PO Q6H PRNRF: 0 ibuprofen [Advil] 200 mg Tablet 200 mg PO DAILY PRNRF: 0 aspirin 81 mg Tablet 81 mg PO DAILY RF: 0 albuterol sulfate 8.5 GM HFA aerosol inhaler 2 puff Inhalation Q4H RF: 0 calcium carbonate 500 MG tablet,chewable 1,200 mg PO DAILY RF: 0 fluoxetine [Prozac] 20 MG capsule 40 mg PO DAILY RF: 0 insulin asp prt-insulin aspart [Novolog Mix 70-30FlexPen U-100] 100 UNIT/1 ML insulin pen See Rx Instructions .ROUTE .COMPLEX RF: 0 bisoprolol fumarate 10 MG tablet 10 mg PO DAILY Qty: 90 RF: 3 vitamin E 200 UNIT capsule 400 unit PO DAILY RF: 0 metformin 500 MG tablet extended release 24 hr 1,000 mg PO BID RF: 0 levothyroxine 75 mcg tablet 150 mcg PO DAILY RF: 0 simvastatin 10 mg Tablet 5 mg PO DAILY RF: 0 lisinopril 10 MG tablet 5 mg PO DAILY RF: 0 omeprazole 20 MG capsule,delayed release(DR/EC) 20 mg PO QPM RF: 0 Medical Decision Making Patient is a pleasant 70-year-old gentleman presenting today with chief complaint of chest pain. Past medical history pertinent for obesity, asthma, diabetes, hyperlipidemia. Father had [place]. Reports that approximately 45 minutes prior to arrival he began noting his substernal burning that radiated to his back and into his neck. He reports this came on after walking the kitchen. Patient is quite adamant that this is associated with heartburn. However, this is not related to eating. He does state that he is eating since and is tempted to improve his symptoms also took Tums at home. No improvement or change in symptoms with intake of food or medication. He has not had pain like this historically. He states that he is also has some shortness of breath. He reports he did have some nausea which is since resolved. On exam, patient appears slightly uncomfortable. His blood pressure is initially in the 150 systolic but at the time of my evaluation was 120. He has 2+ distal pulses all extremities. Lungs are clear. Normal cardiac auscultation. I am concerned at this time for ACS. I am also considering dissection given the severe radiation and sudden onset of discomfort. He is not describing the tearing position but rather burning. Plan for CT a thorax. EKG was obtained and reviewed by Dr. Reynolds. Patient is in a normal sinus rhythm with a rate of 61. Patient did have PVC. No acute ischemic changes are noted. I did review the patient's chart has had normal GFR historically. Plan to move immediately for imaging and will forego waiting for lab. FINDINGS: Pulmonary arteries: Normal. No pulmonary emboli. Aorta: Unremarkable. No aortic aneurysm. No aortic dissection. Thyroid: Low-density right lobe thyroid lesion 13 mm, possible cyst. Recommend sonography. Lungs: Unremarkable. No consolidation. No masses. Pleural space: Unremarkable. No pneumothorax. No pleural effusion. Heart: Coronary artery calcifications/stents noted. Mild cardiomegaly. Lymph nodes: Unremarkable. No enlarged lymph nodes. Gallbladder and bile ducts: Status post cholecystectomy. Bones/joints: Unremarkable. No acute fracture. Soft tissues: Unremarkable. IMPRESSION: No evidence for pulmonary embolus. Discussed these findings with the patient. Priority at this point is ACS based on the patient's symptoms as well as his comorbidities and history. Feel moving forward with nitroglycerin would be appropriate. As his blood pressure has been on the lower side, I would prefer to resorb with the drip and hold off on sublingual effort to prevent hypotension. Also give p.o. aspirin. CBC without significant abnormality. Normal coags. BUN is elevated at 24. GFR within normal limits. Initial troponin is less than 0.05. Consult with Dr. Ratliff regarding admission for chest pain in a high risk individual. He agrees to admission for continued monitoring and treatment. We did discuss order of treatment. Event to further rule out GI source with the patient was initially feeling that this may have been heartburn, GI cocktail was given to the patient. This is unsuccessful at alleviating his discomfort. He responded well to nitroglycerin. Dentalgia patient's son, Sixto [phone]. HPI General Mode of arrival: ambulatory. Date/Time Provider Initiated Documentation: 09/03/20 19:06. Limitations to Documentation: no limitations. Information obtained by: patient and RN notes reviewed. History of Present Illness 70 year old M presents to the emergency department with the chief complaint of chest pain, described as moderate, with intensity rated at 5. Quality is described as burning, and is localized to the chest. Patient reports radiation to back and neck. Patient started experiencing this minute(s) (45) and it has been constant. No relieving factors improve symptom(s), No exacerbating factors reported . Patient notes chest pain, nausea/vomiting (nausea, no vomiting) and shortness of breath (new onset); denies cough, diaphoresis, fever/chills, rash, syncope and weakness. Patient did receive the following treatments prior to arrival, none Related Data Home Medications Medication Instructions Recorded Confirmed metformin 1,000 mg PO BID 04/07/14 09/03/20 vitamin E 400 unit PO DAILY 04/07/14 09/03/20 albuterol sulfate 2 puff INHALATION Q4H inhaler 10/16/14 09/03/20 calcium carbonate 1,200 mg PO DAILY tab.chew 11/08/14 09/03/20 fluoxetine [Prozac] 40 mg PO DAILY tab-cap 11/08/14 09/03/20 insulin asp prt-insulin aspart See Rx Instructions .ROUTE .COMPLEX 01/05/18 09/03/20 [Novolog Mix 70-30FlexPen U-100] bisoprolol fumarate 10 mg PO DAILY #90 tab-cap 04/28/18 09/03/20 amoxicillin 500 mg tablet 2,000 mg PO .PROIR TO DENTAL tab 01/04/19 09/03/20 insulin detemir U-100 100 unit/mL 44 unit SC BID ml 01/04/19 09/03/20 (3 mL) subcutaneous pen levothyroxine 75 mcg tablet 150 mcg PO DAILY tab 01/04/19 09/03/20 lisinopril 5 mg PO DAILY 08/23/19 09/03/20 omeprazole 20 mg PO QPM 08/23/19 09/03/20 simvastatin 5 mg PO DAILY 06/20/20 09/03/20 cyanocobalamin (vitamin B-12) 1,000 mcg PO DAILY 06/28/20 09/03/20 ibuprofen [Advil] 200 mg PO DAILY PRN 06/28/20 09/03/20 meclizine 25 mg PO Q6H PRN 06/28/20 09/03/20 aspirin 81 mg PO DAILY 07/09/20 09/03/20 Previous Rx's Medication Instructions Recorded bisoprolol fumarate 10 mg PO DAILY #90 tab-cap 04/28/18 Allergies Allergy/AdvReac Type Severity Reaction Status Date / Time ceftriaxone Allergy Severe ANAPHYLAXIS Unverified 09/03/20 19:11 Cephalosporins Allergy Severe Anaphylaxsi Unverified 09/03/20 19:11 s ciprofloxacin AdvReac Dizziness/L Unverified 09/03/20 19:11 ightheade meperidine HCl [From Demerol] AdvReac vomiting Unverified 09/03/20 19:11 morphine AdvReac vomiting Unverified 09/03/20 19:11 General CASIMIRO: 3 Review of Systems Constitutional Constitutional: Reports as per HPI, Denies chills, Denies fever(s), Denies headache(s), Denies lethargy and Denies poor appetite Eyes Eyes: Denies change in vision ENT Ears, Nose, Mouth, and Throat: Denies dizziness and Denies headache(s) Cardiovascular Cardiovascular: Reports as per HPI, Reports chest pain, Reports chest pain at rest, Denies syncope, Denies edema, Denies lightheadedness, Reports radiating jaw, neck or arm pain, Reports dyspnea and Denies dyspnea on exertion Respiratory Respiratory: Reports as per HPI, Denies chest congestion, Denies cough, Denies pain on inspiration, Denies pain with cough, Reports dyspnea, Denies dyspnea on exertion and Denies wheezing Gastrointestinal Gastrointestinal: Reports as per HPI, Denies abdominal pain, Denies diarrhea, Reports nausea (currently resolved) and Denies vomiting Genitourinary Genitourinary: Denies system reviewed and no additional complaints, except as documented (denies change in urinary habits) Musculoskeletal Musculoskeletal: Reports as per HPI and Reports back pain (pain radiates between shoulder blades) Integumentary/Breasts Skin/Breast: Reports as per HPI and Denies rash Neurologic Neurologic: Reports as per HPI, Denies dizziness, Denies syncope and Denies headache(s) Allergic/Immunologic Allergic/Immunologic: Denies wheezing PFSH Medical History Arthralgia Asthma Back pain, acute Bradycardia Chronic low back pain Colon polyps Depression Diabetes Diabetic peripheral neuropathy Diverticulosis DJD of right AC (acromioclavicular) joint Essential tremor (11/21/14) Fatigue GERD (gastroesophageal reflux disease) Headache Cervical Hip pain, left History of tobacco use HTN (hypertension) Hyperlipemia Hypotension Hypothyroidism 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 Insect bite Left knee pain Lumbosacral neuritis Neck pain on left side Obesity Prolonged depression Psoriasis Radicular syndrome of lower limbs Resting tremor Right rotator cuff tear Injection under fluoroscopy: 11/04/18 Status post rotator cuff repair DOS: 01/25/2019 Septic arthritis of knee Septic joint Shoulder pain, left Shoulder pain, right Sleep apnea Trigeminy URI, acute Vertigo Vitamin B12 deficiency Surgical History Hx of total knee arthroplasty Right S/P cholecystectomy S/P lumbar spine operation x2 Status post right rotator cuff repair (~01/25/19) Repair of supraspinatus, distal clavicle excision, biceps tenotomy Dr. 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 Family History Father Heart disease Brother Tremor Son Seizure Mother Osteoarthritis Social History Smoking/Tobacco Use Status: Former Tobacco Use Pack-years: 1 Smoking risk assessment performed?: Yes Alcohol Intake: current Alcohol Intake frequency: a few times a week Alcohol type: beer, wine and hard liquor Drug use: Never Substance use type: does not use Household members: children Housing: house Number of Children: 2 current occupation: Retired What type of physical activity do you participate in: independent ambulation Do you feel safe at home: Yes Additional Social history: 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 He is a former alcoholic and now drinks approximately one alcoholic beverage per week. Exam Const General: cooperative, uncomfortable, no acute distress and well developed Nutritional Appearance: well nourished and obese Orientation: alert, awake and oriented x3 HENMT Head: normal to inspection Ears: hearing grossly normal bilaterally Mouth: moist mucous membranes Chest Chest: normal inspection of the chest, normal palpation of entire chest wall and no crepitus Resp Effort & Inspection: normal respiratory effort, able to speak in complete sentences and no respiratory distress Auscultation: clear to auscultation bilaterally, no rales, no rhonchi and no wheezes Cardio Rate: regular rate Rhythm: regular rhythm Heart Sounds: S1 normal and S2 normal GI Inspection: normal to inspection, no edema and non-distended Palpation: soft, no hepatosplenomegaly, not firm, no guarding, not rigid and nontender Auscultation: normal bowel sounds Skin General skin exam: no rashes or lesions noted Trauma: no lacerations or abrasions Neuro General: patient alert, patient awake and patient oriented x3 Cognition: normal cognition Speech: speech normal Gait: normal gait Extrem General: normal to inspection, capillary refill normal, no pedal edema, no calf tenderness, normal gait and other (2+ distal pulses in all extremities) Psych Appearance: grossly normal and well kempt Mental Status: mental status grossly normal Speech and Movement: speech and movement normal
--- NOTE | 2020-09-03 19:30 | DI.CT_ITS ---
EXAM: CT THORAX CTA CLINICAL HISTORY: CP radiating into back. TECHNIQUE: Imaging Protocol: Axial CT angiography was performed with multi-slice acquisition and mu lti-planar and/or 3D reconstructions. CONTRAST MATERIAL: Intravenous: Omnipaque 350 Contrast volume:100 ml COMPARISON: CT ABD PELVIS WITH CONTRAST from 03/05/2009 FINDINGS: Pulmonary Arteries: No evidence of filling defect to suggest pulmonary emboli. Tracheobronchial tree: Patent where visualized. Mediastinum and Lissette: No dominant adenopathy or fluid collection. Pulmonary parenchyma: No consolidation or dominant measurable mass. No architectural distortion. Pleura: No effusion or pneumothorax. Heart: The heart is not dilated. coronary artery calcifications are seen. Aorta: Thoracic aorta non-dilated. Upper abdomen: Status post cholecystectomy. Fatty liver. Bones: Degenerative changes. No compression fracture. IMPRESSION: No evidence of pulmonary embolism or other acute abnormality.. RADIATION DOSE DELIVERED: 785.49mGy.cm Total DLP DATA REPOSITORY: All CT scans at this facility are submitted to the National Radiology Data Registry (NRDR) Dose Index Registry (DIR) with the [employer] (A[employer]). RADIATION OPTIMIZATION: All CT scans at this facility use at least one of these dose optimization te chniques: automated exposure control; mA and/or kV adjustment per patient size (includes targeted exa ms where dose is matched to clinical indication); or iterative reconstruction.
[2020-09-03 19:54] LABS: Abs Immature Grans 0.02 10^3/uL (0.0-0.06); Absolute Basophil Count 0.02 10^3/uL (0.0-0.2); Absolute Eosinophil Count 0.25 10^3/uL (0.0-0.7); Absolute Lymphocyte Count 1.91 10^3/uL (1.2-3.4); Absolute Monocyte Count 0.82 10^3/uL (0.1-0.8); Absolute Neutrophil Count 6.08 10^3/uL (1.2-6.7); Basophils % 0.2; Eosinophils % 2.7; HGB 14.1 g/dL (13.5-17.5); Immature Grans % 0.2; MCHC 30.7 % (32.0-36.0); MCV 97.9 fL (80-95); MPV 10.4 fL (8.0-11.0); Neutrophils % 66.9; Nucleated RBC 0 %; Platelet Count 345 10^3/uL (130-400); RDW 14.1 % (11.8-14.1); RDW-SD 50.6 fL
[2020-09-03] MEDS: Omnipaque 350 MG/ML 100 ML BTL IJ (19:59)
[2020-09-03] MEDS: Normal Saline - Diluent 50 ML VIAL IV (20:00)
[2020-09-03] MEDS: Normal Saline Flush 10 ML SYR IVP (20:00)
[2020-09-03 20:12] LABS: ALT 25 U/L (16-63); AST 13 U/L (15-37); Albumin 3.7 g/dL (3.4-5.0); Alkaline Phosphatase 61 U/L (46-116); Anion Gap 7.7 mmol/L (3-11); BUN 24 mg/dL (7-18); Bilirubin, Total 0.3 mg/dL (0.2-1.0); CO2 29.3 mmol/L (21.0-32.0); CREATININE 1.09 mg/dL (0.70-1.30); Calcium 8.9 mg/dL (8.5-10.1); Chloride 104 mmol/L (98-107); Glucose 142 mg/dL (74-106); Magnesium 1.6 mg/dL (1.8-2.4); Potassium 3.9 mmol/L (3.5-5.1); Sodium 141 mmol/L (136-145); Total Protein 8.3 g/dL (6.4-8.2)
--- NOTE | 2020-09-03 20:16 | DI.VRAD_ITS ---
PROCEDURE INFORMATION: Exam: CT Angiography Chest With Contrast Exam date and time: 09/03/2020 7:48 PM Age: 70 years old Clinical indication: Chest pain; Patient HX: Cp radiating into back TECHNIQUE: Imaging protocol: Computed tomographic angiography of the chest with intravenous contrast. 3D rendering (Not supervised by radiologist): MIP and/or 3D reconstructed images were created by the technologist. Radiation optimization: All CT scans at this facility use at least one of these dose optimization techniques: automated exposure control; mA and/or kV adjustment per patient size (includes targeted exams where dose is matched to clinical indication); or iterative reconstruction. Contrast material: [id number]; Contrast volume: 100 ml; Contrast route: INTRAVENOUS (IV); COMPARISON: CR CHEST 2 VIEWS PA,LAT 07/13/2014 11:32 AM FINDINGS: Pulmonary arteries: Normal. No pulmonary emboli. Aorta: Unremarkable. No aortic aneurysm. No aortic dissection. Thyroid: Low-density right lobe thyroid lesion 13 mm, possible cyst. Recommend sonography. Lungs: Unremarkable. No consolidation. No masses. Pleural space: Unremarkable. No pneumothorax. No pleural effusion. Heart: Coronary artery calcifications/stents noted. Mild cardiomegaly. Lymph nodes: Unremarkable. No enlarged lymph nodes. Gallbladder and bile ducts: Status post cholecystectomy. Bones/joints: Unremarkable. No acute fracture. Soft tissues: Unremarkable. IMPRESSION: No evidence for pulmonary embolus. Dictated and Authenticated by: Celeste White MD. Ordering:KI Lopez MD
[2020-09-03 20:20] LABS: PTT Activated 21.9 sec (21.0-27.5); Troponin I < 0.05 ng/mL (<0.06)
--- NOTE | 2020-09-03 20:40 | NUR.NOTE ---
Nursing Note:Starting Ntg gtt. Dr. Ratliff at bedside and wants GI cocktail given before starting Ntg gtt.
[2020-09-03] MEDS: Pantoprazole 40 MG VIAL IVP (20:49)
[2020-09-03] MEDS: nitroGLYcerin 0.4 MG TAB SL (20:56)
--- NOTE | 2020-09-03 20:56 | HPE_ITS ---
Date of service: 09/03/20 Time of Service: 20:56 Assessment and Plan Assessment and plan (1) Chest pain: Status: Acute Assessment and plan: CP. Moderate suspicion ACS, no signs STEMI or NSTEMI at present. Will give ASA, continue NTG and trend troponins for now. History of Present Illness History of Present Illness Chief Complaint: CP Narrative: 70 male with HTN, DM, here with some 2 hours now of substernal CP (like heartburn), radiating to neck, along with some SOB. No nausea or diaphoresis. came on at rest. In ER w/u of note for neg trop., EKG with NSR, occ PVC, no STTW changes, negative CTA of chest. No response to GI cocktail. Partial response to SL NTG and started on NTG qtt. Admitted for further evaluation. 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 Insect bite Left knee pain Lumbosacral neuritis Neck pain on left side Obesity Prolonged depression Psoriasis Radicular syndrome of lower limbs Resting tremor Right rotator cuff tear Injection under fluoroscopy: 11/04/18 Status post rotator cuff repair DOS: 01/25/2019 Septic arthritis of knee Septic joint Shoulder pain, left Shoulder pain, right Sleep apnea Trigeminy URI, acute Vertigo Vitamin B12 deficiency Surgical History Hx of total knee arthroplasty Right S/P cholecystectomy S/P lumbar spine operation x2 Status post right rotator cuff repair (~01/25/19) Repair of supraspinatus, distal clavicle excision, biceps tenotomy Dr. 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 Family History Father Heart disease Brother Tremor Son Seizure Mother Osteoarthritis Social History Smoking/Tobacco Use Status: Former Tobacco Use Pack-years: 1 Smoking risk assessment performed?: Yes Alcohol Intake: current Alcohol Intake frequency: a few times a week Alcohol type: beer, wine and hard liquor Drug use: Never Substance use type: does not use Household members: children Housing: house Number of Children: 2 current occupation: Retired What type of physical activity do you participate in: independent ambulation Do you feel safe at home: Yes Additional Social history: 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 He is a former alcoholic and now drinks approximately one alcoholic beverage per week. Meds Home Medications and Allergies Home Medications Medication Instructions Recorded Confirmed Type metformin 1,000 mg PO BID 04/07/14 09/03/20 History vitamin E 400 unit PO DAILY 04/07/14 09/03/20 History albuterol sulfate 2 puff INHALATION Q4H inhaler 10/16/14 09/03/20 History calcium carbonate 1,200 mg PO DAILY tab.chew 11/08/14 09/03/20 History fluoxetine [Prozac] 40 mg PO DAILY tab-cap 11/08/14 09/03/20 History insulin asp prt-insulin aspart See Rx Instructions .ROUTE .COMPLEX 01/05/18 09/03/20 History [Novolog Mix 70-30FlexPen U-100] bisoprolol fumarate 10 mg PO DAILY #90 tab-cap 04/28/18 09/03/20 Rx amoxicillin 500 mg tablet 2,000 mg PO .PROIR TO DENTAL tab 01/04/19 09/03/20 History insulin detemir U-100 100 unit/mL 44 unit SC BID ml 01/04/19 09/03/20 History (3 mL) subcutaneous pen levothyroxine 75 mcg tablet 150 mcg PO DAILY tab 01/04/19 09/03/20 History lisinopril 5 mg PO DAILY 08/23/19 09/03/20 History omeprazole 20 mg PO QPM 08/23/19 09/03/20 History simvastatin 5 mg PO DAILY 06/20/20 09/03/20 History cyanocobalamin (vitamin B-12) 1,000 mcg PO DAILY 06/28/20 09/03/20 History ibuprofen [Advil] 200 mg PO DAILY PRN 06/28/20 09/03/20 History meclizine 25 mg PO Q6H PRN 06/28/20 09/03/20 History aspirin 81 mg PO DAILY 07/09/20 09/03/20 History Allergies Allergy/AdvReac Type Severity Reaction Status Date / Time ceftriaxone Allergy Severe ANAPHYLAXIS Unverified 09/03/20 19:11 Cephalosporins Allergy Severe Anaphylaxsi Unverified 09/03/20 19:11 s ciprofloxacin AdvReac Dizziness/L Unverified 09/03/20 19:11 ightheade meperidine HCl [From Demerol] AdvReac vomiting Unverified 09/03/20 19:11 morphine AdvReac vomiting Unverified 09/03/20 19:11 Exam Narrative Exam Narrative: 129/62, 66, 36.4, 18, 98% RA. HEENT unremarkable; neck supple, cannot read JVP; lungs diminished but clear; heart distant but RRR; abdomen soft and NT; extremities w/o edema, pulses 2+/=; neuro Ox3, moves all 4s Results Labs Result diagrams: 09/03/20 19:20 09/03/20 19:20 Labs: Laboratory Results - last 24 hr 09/03/20 09/03/20 09/03/20 19:20 19:20 19:20 WBC 9.10 RBC 4.70 Hgb 14.1 Hct 46.0 MCV 97.9 H MCH 30.0 MCHC 30.7 L RDW 14.1 Plt Count 345 MPV 10.4 Immature Gran % 0.2 Neutrophils % 66.9 Lymphocytes % 21.0 Monocytes % 9.0 Eosinophils % 2.7 Basophils % 0.2 Nucleated RBC % 0 Absolute Neutrophils 6.08 Absolute Lymphocytes 1.91 Absolute Monocytes 0.82 H Absolute Eosinophils 0.25 Absolute Basophils 0.02 PT 10.0 INR 1.0 APTT 21.9 Sodium 141 Potassium 3.9 Chloride 104 Carbon Dioxide 29.3 Anion Gap 7.7 BUN 24 H Creatinine 1.09 Estimated GFR/1.73 m2 >= 60.00 Glucose 142 H Calcium 8.9 Magnesium 1.6 L Total Bilirubin 0.3 AST 13 L ALT 25 Alkaline Phosphatase 61 Troponin I < 0.05 Total Protein 8.3 H Albumin 3.7 Last Vital Signs Temp 36.4 C L 09/03/20 19:06 Pulse 61 09/03/20 19:06 Resp 24 09/03/20 19:06 BP 152/65 H 09/03/20 19:06 Pulse Ox 97 09/03/20 19:06 COVID-19 Screening Have you, or household traveled for leisure in last 14 days?: No Had IN PERSON contact w/suspected or confirmed C-19 person: No
--- NOTE | 2020-09-03 21:30 | RT.EKG_ITS ---
APPROVED REPORT Exam: Resting ECG Patient Location: E HR:60 bpm ECG Measurements Heart Rate [address] 181 P 22 QRSd 107 QRS 13 QT 480 T 6 QTc 478 Conclusion Sinus rhythm...normal P axis, V-rate 60- 99 Probable left atrial enlargement...P >50mS, <-0.10mV V1
[2020-09-03] MEDS: Aspirin 325 MG TAB PO (23:44)
[2020-09-03 23:58] LABS: Troponin I < 0.05 ng/mL (<0.06)
[2020-09-04] VITALS (21 sets, daily range): BP systolic 105–139; BP diastolic 42–72; PULSE 56–65; RESP 14–23; TEMP 36.5–37.2; O2SAT 90–96
--- NOTE | 2020-09-04 | DI.US_ITS ---
APPROVED REPORT EXAM: Comprehensive 2D, Doppler, and color-flow Echocardiogram Patient Location: In-Patient Room/Bed: 220 Cruise Consultant: Lacy Mcclendon RDCS (AE) Indications: Chest pain Other Information Study Quality: Adequate Conclusion Normal left ventricular chamber size. Borderline concentric left ventricular hypertrophy. Estimated ejection fraction is 65%. There are no segmental wall motion abnormalities Normal right ventricular size and systolic function Mildly dilated left atrium. Right atrium is normal in size Trileaflet aortic valve without stenosis or regurgitation Mitral annular calcification with mild mitral regurgitation Structurally normal tricuspid valve with trace to mild regurgitation. Estimated right ventricular sy stolic pressure is 33 mmHg Normal pulmonic valve Dilated ascending aorta 3.9 cm Wall motion Left Ventricle The left ventricle is normal size. The left ventricular systolic function is normal. The left ventric ular ejection fraction is within the normal range. Borderline concentric left ventricular hypertrophy . There is normal LV segmental wall motion. There is no ventricular septal defect visualized. LVEF is 65%. Right Ventricle Right ventricle is not well visualized. Right ventricular systolic function is grossly normal. The RV SP is 33.0mmHg. Atria Left atrium is mildly dilated. The right atrium size is normal. The interatrial septum is intact with no evidence for an atrial septal defect. Aortic Valve The aortic valve is normal in structure. Aortic valve is trileaflet. There is no aortic valvular sten osis. No aortic regurgitation is present. Mitral Valve Moderate mitral annular calcification. No evidence of mitral valve stenosis. Mild mitral regurgitatio n. Tricuspid Valve The tricuspid valve is normal in structure. There is no tricuspid valve stenosis. Trace to mild tricu spid regurgitation. Pulmonic Valve The pulmonary valve is normal in structure. There is no pulmonic valvular stenosis. There is no pulmo daja valvular regurgitation. Great Vessels The aortic root is normal in size. The ascending aorta is moderately dilated. The IVC was not clearly visualized. Pericardium There is no pericardial effusion. 2D Dimensions IVSD d PLAX 1.21 cm M: 0.6-1.2 LV Vol A2C d MOD 138.1 mL LVPW d PLAX 1.25 cm M: 0.6 - 1.2 LV Vol A4C d MOD 133.2 mL LVID d PLAX 5.54 cm M: 4.2 - 5.8 LA vol/ BSA A2C s A-L 41.6 mL/m2 LVDs 3.60 cm M: 2.5 - 4.0 LA vol/ BSA A4C s A-L 35.7 mL/m2 Ao Root d 3.16 cm M: 3.1 - 3.7 LA Vol/ BSA Biplane s A-L 38.8 mL/m2 RA Area A4C 19.93 cm2 LA Area A4C s MOD 26.47 cm2 RA Vol/ BSA A4C s A-L 26.0 mL/m2 LA Area A2C s MOD 28.78 cm2 Ao Asc Diam d 3.96 cm M: 2.6 - 3.4 LV EF A4C MOD 67.7 % LV EF Teichholz 63.0 % LV EF A2C MOD 65.8 % LVEF (Stanley's) 66.21 % M: 52 - 72 LV EF Biplane MOD 66.2 % LV Volume 97.89 mL M: 62 - 150 SV 91.37 mL LV Volume Index 40.95 mL/m2 M: 34 - 74 SV Index 38.26 mL/m2 LV Vol Biplane MOD 138.0 mL FS 34.45 % M-Mode TAPSE 2.03 cm (M/F) >1.7 LV Diastology MV E' medial 0.084 (>0.07 m/s) E/A Ratio 1.2 LV E/e MED 11.95 (<14) MV E Vmax 1.01 (0.4-1.3 m/s) MV E' lateral 0.098 (>0.1 m/s) MV A Vmax 0.85 (0.4-1.3 m/s) LV E/e LAT 10.30 (<14) MV E/A Ratio 1.18 MV E/E' medial 11.98 MV E/E' lateral 10.30 Aortic Valve LVOT Area 3.87 cm2 AoV Area Vmax 3.16 cm2 LVOT Vmax 1.08 m/s AoV Area/ BSA (Vmax) 1.32 cm2/m2 LVOT Mean Sarwat. 0.68 m/s BHUPENDRA Mean Sarwat. 2.76 cm2 LVOT Peak Grad 4.7 mmHg BHUPENDRA Mean Sarwat. Index 1.15 cm2/m2 LVOT Mean Grad 2.2 mmHg LVOT VTI 0.275 m LVOT Diam s 2.20 cm AoV Vmax 1.33 m/s Velocity Ratio 0.81 AoV Mean Sarwat. 0.96 m/s AoV Peak Grad 7.1 mmHg LVOT SV 106.53 mL AoV Mean Grad 4.1 mmHg AoV VTI 0.322 m AoV Area VTI 3.31 cm2 AoV Area/ BSA (VTI) 1.39 cm/m2 Mitral Valve MV DT 172 (160-240 msec) MV PHT 50 msec MV Area PHT 4.40 cm2 MV VTI 0.380 m MV VTI Annulus 0.382 m MV Area VTI 2.82 (4.0-6.0 cm2) Pulmonary Valve PV Vmax 0.94 (0.5-1.5 m/s) RVOT Peak Gr. 2.57 mmHg PV Peak Grad 3.5 mmHg RVOT Mean Gr. 1.15 mmHg PV Mean Grad 2.0 mmHg RVOT VTI 0.189 m PV VTI 0.260 m RVOT Vmax 0.80 m/s Tricuspid Valve TR Peak Grad 29.9 mmHg TR Vmax 2.74 m/s RA Pressure 3.00 mmHg RVSP (TR) 33.0 mmHg
[2020-09-04] MEDS: Acetaminophen 325 MG TAB 650 MG PO (02:45)
[2020-09-04] MEDS: Normal Saline Flush 10 ML SYR IVP (06:00)
[2020-09-04] MEDS: Levothyroxine 75 MCG TAB 150 MCG PO (06:00)
[2020-09-04 07:06] LABS: CREATININE 1.01 mg/dL (0.70-1.30)
[2020-09-04 07:10] LABS: Troponin I < 0.05 ng/mL (<0.06)
--- NOTE | 2020-09-04 08:21 | PDOC.CMIN ---
- If Service Date Differs Date of service: 09/04/20 Time of Service: 08:25 Care Management Initial Assess REASON FOR HOSPITALIZATION:: Chest Pain PAST MEDICAL HISTORY/PAST SURGICAL HISTORY:: Chronic low back pain (Acute). Hypothyroidism (Chronic). Asthma (Chronic). Diabetic peripheral neuropathy (Acute). Diabetes. Hyperlipemia. 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 Right rotator cuff tear (Chronic). 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 Essential tremor (Acute 11/21/14). Depression (Resolved). Infection of total right knee replacement (Resolved). Surgical History. S/P cholecystectomy (Acute). S/P lumbar spine operation (Acute). Status post total knee replacement, right (Acute) PREVIOUS FUNCTIONAL STATUS/SOCIAL/FAMILY SUPPORTS:: Arianna lives in [facility] with his son, Sixto and grandson. His , who he speaks fondly on, predeceased him. He also has an adult daughter, Dejah, who lives in [place], [place], who is the mother of his other grandson. 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 He is independent with ADL's. CURRENT FUNCTIONAL STATUS:: Arianna was up independently with his cane and did about twenty steps today though he does have noted leg weakness. He is awaiting results of his work-up which will determine whether he will return home and follow up as an outpatient or if he will require transfer, per MD. ADVANCE DIRECTIVES:: On file, Sixto, antonio as agent. Has patient been provided with info about the portal/API?: No Did the patient sign up for the portal?: No CODE STATUS:: Full Code INSURANCE COVERAGE / FINANCIAL ISSUES:: [facility]/ [facility] Plan N CURRENT HOME/COMMUNITY SERVICES/EQUIPMENT:: Cane, FWW, 4WW PRIMARY CARE PHYSICIAN:: Beatriz Cotton MD POTENTIAL DISCHARGE NEEDS:: MPI stress test, Echocardiogram, results determine disposition. PATIENT/FAMILY EDUCATION NEEDS:: Review discharge instructions regarding medications and activity levels, discussion of self care needs including Ask Me Three ANTICIPATED BARRIERS TO DISCHARGE:: None identified. TRANSPORTATION:: Via private vehicle with his son, Sixto. PLAN:: Anticipate Arianna will return home when ready per MD. He will follow up as an outpatient and transport via private vehicle with his son, Sixto. In the event his workup is positive, he will transfer to tertiary, per MD.
[2020-09-04] MEDS: Simvastatin 10 MG TAB 5 MG PO (08:27)
[2020-09-04] MEDS: Bisoprolol 5 MG TAB 10 MG PO (08:27)
[2020-09-04] MEDS: FLUoxetine 20 MG CAP 40 MG PO (08:27)
[2020-09-04] MEDS: Insulin Aspart 300 UNITS/3 ML PEN SC ×2 (08:44→14:25)
--- NOTE | 2020-09-04 10:28 | PGE_ITS ---
Date of Service Date of service: 09/04/20 Time of Service: Assessment and Plan Assessment and plan (1) Chest pain: Status: Acute Assessment and plan: Check echocardiogram check Lexiscan stress MPI. Continue risk reduction with aggressive treatment of diabetes mellitus and hypertension hyperlipidemia. Further treatment will depend on the results of his stress MPI. Qualifiers: Chest pain type: unspecified Qualified Code(s): R07.9 - Chest pain, unspecified Subjective Subjective Interval history since last seen: 70-year-old male with history e ssential hypertension, hyperlipidemia, diabetes mellitus requiring insulin as well as morbid obesity and DJD of his knees. Patient presented emergency department last night because of substernal chest pain associated with dyspnea. Initially thought this was heartburn and took a couple of Tums which gave him no relief. He finally got relief in the emergency department with sublingual nitroglycerin but when the pain recurred he was put on nitroglycerin drip. Serial troponins have been negative x3 sets. He is currently pain-free and is off the nitroglycerin drip. He is scheduled for a Lexiscan stress MPI later today. Overnight his rhythm has been sinus rhythm but he has had some frequent PVCs including couplets and triplets and one brief 5 beat run for which he was asymptomatic. CBC was unremarkable. CMP was also unremarkable. Magnesium was low at 1.6 for which I have put him on some oral supplementation. Exam Narrative Exam Narrative: Obese male who is alert and oriented person place time circumstance sitting up in his chair watching TV. Currently pain-free and not dyspneic. Lungs are clear to auscultation. Heart is regular rate and rhythm without appreciable murmur rub or gallop. Objective Last Vital Signs Temp 37.2 C 09/04/20 07:45 Pulse 57 L 09/04/20 10:04 Resp 23 09/04/20 10:04 BP 130/63 09/04/20 10:04 Pulse Ox 94 09/04/20 10:04 Laboratory Results - last 24 hr 09/03/20 09/03/20 09/03/20 19:20 19:20 19:20 WBC 9.10 RBC 4.70 Hgb 14.1 Hct 46.0 MCV 97.9 H MCH 30.0 MCHC 30.7 L RDW 14.1 Plt Count 345 MPV 10.4 Immature Gran % 0.2 Neutrophils % 66.9 Lymphocytes % 21.0 Monocytes % 9.0 Eosinophils % 2.7 Basophils % 0.2 Nucleated RBC % 0 Absolute Neutrophils 6.08 Absolute Lymphocytes 1.91 Absolute Monocytes 0.82 H Absolute Eosinophils 0.25 Absolute Basophils 0.02 PT 10.0 INR 1.0 APTT 21.9 Sodium 141 Potassium 3.9 Chloride 104 Carbon Dioxide 29.3 Anion Gap 7.7 BUN 24 H Creatinine 1.09 Estimated GFR/1.73 m2 >= 60.00 Glucose 142 H Calcium 8.9 Magnesium 1.6 L Total Bilirubin 0.3 AST 13 L ALT 25 Alkaline Phosphatase 61 Troponin I < 0.05 Total Protein 8.3 H Albumin 3.7 09/03/20 09/03/20 09/04/20 23:20 23:30 06:06 WBC RBC Hgb Hct MCV MCH MCHC RDW Plt Count MPV Immature Gran % Neutrophils % Lymphocytes % Monocytes % Eosinophils % Basophils % Nucleated RBC % Absolute Neutrophils Absolute Lymphocytes Absolute Monocytes Absolute Eosinophils Absolute Basophils PT INR APTT Sodium Potassium Chloride Carbon Dioxide Anion Gap BUN Creatinine 1.01 Estimated GFR/1.73 m2 >= 60.00 Glucose Calcium Magnesium Total Bilirubin AST ALT Alkaline Phosphatase Troponin I < 0.05 Cancelled < 0.05 Total Protein Albumin
[2020-09-04 11:18] LABS: Hemoglobin A1C 8.1 % (<5.7)
--- NOTE | 2020-09-04 11:45 | DI.NM_ITS ---
APPROVED REPORT Exam: Pharmacologic Patient Location: In-Patient Room/Bed: 220 Stress Nurse: Yamilet Chavez BMI: 35.84 Baseline Rhythm: Sinus Bradycardia Comment: occasional multifocal PVC, rare PAC Indications: chest pain Medical History Medical History: HTN, diabetes, smoker (former), obesity, hypothyroidis, asthma, bradycardia, anxiety , depression, gerd, fatigue, hyperlipidemia Cardiac Medications: metformin, bisoprolol, lisinopril, ASA, simvastatin Allergies: ceftriaxone, cephalosporins, ciprofloxaxcin, meperidine, morphine Cardiac Risk Factors: HTN, Hyperlipidemia, Diabetes (insulin), Asthma, Smoking (former), obesity Previous Cardiac Procedures: None. Pretest Chest Pain Characteristics: None. Exercise History: None. Physical Disabilities: Hips, Legs Lung Sounds: Clear to auscultation Heart Sounds: Regular Stress Test Details Test: Pharmacologic stress testing performed using 0.4 mg of regadenoson per 5 mL given IV over 10 s econds. Nuclear Acquisition: Rest Tc-99m/Stress Tc-99m 1 day Rest Isotope: Tc-99m Sestamibi. Dose: 15 Date: 09/04/2020 Injection Time: 1215 Stress Isotope: Tc-99m Sestamibi. Dose: 45 Date: 09/04/2020 Injection Time: 1310 HR Resting HR Supine: 55 bpm Max Heart Rate (APMHR): 149 bpm Target HR (85% APMHR): 126 bpm Max HR Achieved: 70 bpm % of APMHR: 46 Recovery HR: 66 bpm BP Resting BP Supine: 150/82 mmHg Max BP: 150/82 mmHg Recovery BP: 146/78/ mmHg ECG Resting ECG: Sinus Bradycardia Ectopy: rare PAC, occassional multifocal PVC Stress ECG: Sinus Rhythm ST Change: No ST segment changes noted. Arrhythmia: multifocal PVCs increasing in frequency, bigeminy Recovery ECG: Sinus Rhythm Recovery ST Change: No ST segment changes noted. Recovery Arrhythmia: multifocal PVCs Stress ECG Conclusion 1. Patient underwent pharmacologic stress with regadenoson 2. Blunted hemodynamic response. Maximum heart rate was 46% of predicted for age 3. Electrocardiographically the test was nondiagnostic 4. Frequent PVCs were seen Stress Test Summary STAGE HR BP Symptoms NOTES Supine 55 150/82 1 min post Lexiscan injection 67 148/76 flushed 3 min post Lexiscan injection 66 144/80 symptoms resolved 6 min post Lexiscan injection 66 146/78 MPI Conclusion Technically difficult No definite areas of ischemia or prior infarction Calculated EF 50%
[2020-09-04] MEDS: Regadenoson 0.4 MG/5 ML SYR IVP (12:57)
--- NOTE | 2020-09-04 16:50 | DSE_ITS ---
Date of service: 09/04/20 Time of Service: 16:50 DS: Diagnosis Discharge Diagnosis (1) Chest pain: Status: Acute Discharge Plan Disposition Patient Disposition: HOME Condition: Stable Discharge Details Reason For Visit: CHEST PAIN Admit Date/Time: 09/03/20 21:44 Admit Provider: Jayajy Ratliff Attending Provider: Jayjay Ratliff Primary Care Provider: Beatriz Cotton V Hospital Course Hospital Course: 70-year-old male with a history of type 2 diabetes mellitus requiring insulin, essential hypertension, hyperlipidemia presented with 2 hours worth of substernal chest pain associated with some dyspnea and radiation up into his neck. Initially he thought this was his usual acid reflux and took a couple of Tums without relief. When it did not resolve he presented to the emergency department. In the ER he underwent routine labs including CBC CMP and serial troponin I levels. Troponin I levels came back negative on admission and subsequent follow-up to readings were also negative for total of 3 normal troponin levels. Routine labs were unremarkable. Thoracic CT scan of the chest showed no pulmonary embolism and no aortic aneurysm. No parenchymal abnormalities in the lungs. Serial ECGs demonstrated normal sinus rhythm with isolated PVC and evidence of left atrial enlargement but no acute ischemic ST or T wave changes. Of note patient is chest pain occurred after dinner and was not associated with any physical activity. Patient was treated in the emergency department with nitroglycerin drip and oral aspirin. Patient was admitted to the intensive care unit where follow-up troponins were obtained and came back negative. Nitroglycerin drip was weaned off overnight. The next morning patient underwent an echocardiogram as well as a Lexiscan stress MPI study. Echocardiogram demonstrated borderline concentric LVH with normal left ventricular wall motion and left ventricular ejection fraction of 65%. There is a mildly dilated left atrium and normal-sized right atrium. RV size and function was normal. He has mild MAC with mild mitral regurgitation. Aortic valve was without stenosis or regurgitation. He has mildly elevated right ventricular systolic pressure of 33 mm.He has a dilated ascending aorta 3.9 cm. Patient underwent a Lexiscan stress MPI study. Finalized report is still pending at this time. I was able to obtain a preliminary report which showed no fixed or reversible defects. Was a technically difficult study however in the EKG portion of the stress test was nondiagnostic as the patient was on a beta- rommel and unable to achieve target heart rate. Based on this study I told the patient that he probably does not have hemodynamically significant coronary artery disease but I did give him the caveat that if he has recurrent chest heaviness or pressure associated with shortness of breath or diaphoresis he should not hesitate calling 911 and being brought back to the emergency department. Patient has had a history of known GERD I suspect that he needs a formal evaluation with an EGD. In the interim I am going to increase his omeprazole to 40 mg daily and add Carafate 1 g before meals and at bedtime to his regimen. If he has recurrent chest pain in spite of this then I would consider referring him to cardiology for cardiac catheterization for definitive study. Home Meds and New Rx's Prescriptions: New sucralfate [Carafate] 1 gram tablet 1 g PO QACHS Qty: 120 RF: 0 Continued Levemir FlexTouch U-100 Insuln 100 unit/mL (3 mL) insulin pen 44 unit SC BID RF: 0 amoxicillin 500 mg tablet 2,000 mg PO .PROIR TO DENTAL RF: 0 cyanocobalamin (vitamin B-12) 1,000 mcg Tablet 1,000 mcg PO DAILY RF: 0 meclizine 25 mg Tablet 25 mg PO Q6H PRNRF: 0 ibuprofen [Advil] 200 mg Tablet 200 mg PO DAILY PRNRF: 0 aspirin 81 mg Tablet 81 mg PO DAILY RF: 0 albuterol sulfate 8.5 GM HFA aerosol inhaler 2 puff Inhalation Q4H RF: 0 calcium carbonate 500 MG tablet,chewable 1,200 mg PO DAILY RF: 0 fluoxetine [Prozac] 20 MG capsule 40 mg PO DAILY RF: 0 bisoprolol fumarate 10 MG tablet 10 mg PO DAILY Qty: 90 RF: 3 vitamin E 200 UNIT capsule 400 unit PO DAILY RF: 0 metformin 500 MG tablet extended release 24 hr 1,000 mg PO BID RF: 0 levothyroxine 75 mcg tablet 150 mcg PO DAILY RF: 0 simvastatin 10 mg Tablet 10 mg PO DAILY RF: 0 insulin aspart U-100 [Novolog Flexpen U-100 Insulin] 100 unit/mL (3 mL) insulin pen 0 unit SUBCUT DAILY RF: 0 lisinopril 10 MG tablet 5 mg PO DAILY RF: 0 Changed omeprazole 20 MG capsule,delayed release(DR/EC) 40 mg PO QPM Qty: 0 RF: 0 Discharge Instructions Instructions: Chest Pain (DC), Noncardiac Chest Pain (DC) Referrals: Baetriz Cotton MD [Primary Care Provider] - (Call the office tomorrow for a follow-up appointment in the next week) Activity:: Activity as Tolerated Equipment/Supplies:: No Equipment Needed Diet:: Carb Counting Discharge Orders Discharge Orders: Discharge Order (Routine); Ordered 09/04/20 Ordered By: Glen Quevedo Discharge Data Discharge Date/Time-TO BE ENTERED AT DEPARTURE: 09/04/20 17:00 DS: Summary Status at Discharge Functional status at discharge: independent ambulation Overall status at discharge: patient is back to baseline Mental Status: mental status grossly normal Speech and Movement: speech and movement normal Mood: congruent mood Affect: normal affect Time Spent with Patient providing and/or coordinating discharge services: Less than 30 minutes Exam Narrative Exam Narrative: Obese male who is alert and oriented person place time circumstance in no discomfort. He is sitting up in his room already dressed before I even had a chance to go over his results with him. Psych Mental Status: mental status grossly normal Speech and Movement: speech and movement normal Mood: congruent mood Affect: normal affect DS: Data Vitals/I&O Vitals and I&O: Vital Signs Temperature 36.5 C 09/04/20 16:09 Temperature Source Temporal Artery Scan 09/04/20 16:09 Pulse 61 09/04/20 14:02 Pulse 63 09/04/20 14:02 Respiratory Rate 16 09/04/20 14:02 Respiratory Effort Non-Labored 09/04/20 16:09 Respiratory Depth Normal 09/04/20 16:09 Respiratory Pattern Normal 09/04/20 16:09 Blood Pressure 139/67 09/04/20 14:02 Blood Pressure Mean 86 09/04/20 14:02 Blood Pressure Position Supine 09/03/20 22:55 Pulse Oximetry 90 L 09/04/20 14:01 Oxygen Delivery Method Room Air 09/04/20 16:09 Oxygen Flow Rate 0 09/04/20 16:09 Pain Level 0 09/04/20 16:09 Intake & Output 09/03/20 09/04/20 09/04/20 23:59 11:59 23:59 Intake Total 317.700 / 617.700 300 / 617.700 Output Total 400 / 400 800 / 800 Balance -400 / -400 -482.300 / -182.300 300 / -182.300 Weight 121.109 kg 121.563 kg Intake: IV 17.700 / 17.700 Oral 300 / 600 300 / 600 Output: Urine 400 / 400 800 / 800 Other: Urine Color Yellow Urine Appearance Clear Clear Urine Odor Normal None Comment Voiding via urinal. No void at this time. Voiding Methods Urinal Urinal Data Completed and Pending Labs on day of discharge: Labs from last 24 hours 09/04/20 09/04/20 09/03/20 06:06 06:06 23:30 WBC RBC Hgb Hct MCV MCH MCHC RDW Plt Count MPV Immature Gran % Neutrophils % Lymphocytes % Monocytes % Eosinophils % Basophils % Nucleated RBC % Absolute Neutrophils Absolute Lymphocytes Absolute Monocytes Absolute Eosinophils Absolute Basophils PT INR APTT Sodium Potassium Chloride Carbon Dioxide Anion Gap BUN Creatinine 1.01 Estimated GFR/1.73 m2 >= 60.00 Glucose Hemoglobin A1c 8.1 H Calcium Magnesium Total Bilirubin AST ALT Alkaline Phosphatase Troponin I < 0.05 Cancelled Total Protein Albumin SARS-CoV-2 (PCR) [facility] COVID-19 PCR Ref Test Perform Site 09/03/20 09/03/20 09/03/20 23:20 22:19 19:20 WBC RBC Hgb Hct MCV MCH MCHC RDW Plt Count MPV Immature Gran % Neutrophils % Lymphocytes % Monocytes % Eosinophils % Basophils % Nucleated RBC % Absolute Neutrophils Absolute Lymphocytes Absolute Monocytes Absolute Eosinophils Absolute Basophils PT 10.0 INR 1.0 APTT 21.9 Sodium Potassium Chloride Carbon Dioxide Anion Gap BUN Creatinine Estimated GFR/1.73 m2 Glucose Hemoglobin A1c Calcium Magnesium Total Bilirubin AST ALT Alkaline Phosphatase Troponin I < 0.05 Total Protein Albumin SARS-CoV-2 (PCR) Pending [facility] COVID-19 PCR Pending Ref Test Perform Site Pending 09/03/20 09/03/20 19:20 19:20 WBC 9.10 RBC 4.70 Hgb 14.1 Hct 46.0 MCV 97.9 H MCH 30.0 MCHC 30.7 L RDW 14.1 Plt Count 345 MPV 10.4 Immature Gran % 0.2 Neutrophils % 66.9 Lymphocytes % 21.0 Monocytes % 9.0 Eosinophils % 2.7 Basophils % 0.2 Nucleated RBC % 0 Absolute Neutrophils 6.08 Absolute Lymphocytes 1.91 Absolute Monocytes 0.82 H Absolute Eosinophils 0.25 Absolute Basophils 0.02 PT INR APTT Sodium 141 Potassium 3.9 Chloride 104 Carbon Dioxide 29.3 Anion Gap 7.7 BUN 24 H Creatinine 1.09 Estimated GFR/1.73 m2 >= 60.00 Glucose 142 H Hemoglobin A1c Calcium 8.9 Magnesium 1.6 L Total Bilirubin 0.3 AST 13 L ALT 25 Alkaline Phosphatase 61 Troponin I < 0.05 Total Protein 8.3 H Albumin 3.7 SARS-CoV-2 (PCR) [facility] COVID-19 PCR Ref Test Perform Site [facility] Medical History Arthralgia Asthma Back pain, acute Bradycardia Chronic low back pain Colon polyps Depression Diabetes Diabetic peripheral neuropathy Diverticulosis DJD of right AC (acromioclavicular) joint Essential tremor (11/21/14) Fatigue GERD (gastroesophageal reflux disease) Headache Cervical Hip pain, left History of tobacco use HTN (hypertension) Hyperlipemia Hypotension Hypothyroidism 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 Insect bite Left knee pain Lumbosacral neuritis Neck pain on left side Obesity Prolonged depression Psoriasis Radicular syndrome of lower limbs Resting tremor Right rotator cuff tear Injection under fluoroscopy: 11/04/18 Status post rotator cuff repair DOS: 01/25/2019 Septic arthritis of knee Septic joint Shoulder pain, left Shoulder pain, right Sleep apnea Trigeminy URI, acute Vertigo Vitamin B12 deficiency Surgical History Hx of total knee arthroplasty Right S/P cholecystectomy S/P lumbar spine operation x2 Status post right rotator cuff repair (~01/25/19) Repair of supraspinatus, distal clavicle excision, biceps tenotomy Dr. 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 Family History Father Heart disease Brother Tremor Son Seizure Mother Osteoarthritis Social History Smoking/Tobacco Use Status: Former Tobacco Use Pack-years: 1 Smoking risk assessment performed?: Yes Alcohol Intake: current Alcohol Intake frequency: a few times a week Alcohol type: beer, wine and hard liquor Drug use: Never Substance use type: does not use Household members: children Housing: house Number of Children: 2 current occupation: Retired What type of physical activity do you participate in: independent ambulation Do you feel safe at home: Yes Additional Social history: He 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 He is a former alcoholic and now drinks approximately one alcoholic beverage per week.
[2020-09-04 20:33] LABS: COVID-19 RT-PCR UVMMC Result Negative (Negative)
== END 2020-09-04 17:00 | disposition home or self-care (01) ==
LOC: ER 21:48 → ICU 09-04 08:14
PROVIDERS: Internal Medicine; Admitting Provider General Practice; Emergency Provider Physician Assistant; PCP Family Medicine; Visit Provider General Practice
DX: R07.9 Chest pain, unspecified (principal); I10 Essential (primary) hypertension; E78.5 Hyperlipidemia, unspecified; Z79.4 Long term (current) use of insulin; K21.9 Gastro-esophageal reflux disease without esophagitis; E66.9 Obesity, unspecified; Z68.37 Body mass index [BMI] 37.0-37.9, adult; E11.42 Type 2 diabetes mellitus with diabetic polyneuropathy; E03.9 Hypothyroidism, unspecified; F32.9 Major depressive disorder, single episode, unspecified; L40.9 Psoriasis, unspecified; R00.8 Other abnormalities of heart beat
CPT/HCPCS: 36415; 71275; 78452; 80053; 93005; 93016; 93018; 93306; 96365; 96366; 96375; 99222; 99226; 99238; 99285; U0003; 82565; 83036; 83735; 84484; 85025; 85610; 85730; 93010; 93017; 99217; 99219; G0378; J2785; J3490

== ENCOUNTER 2020-09-06 12:17 | Outpatient (CLI) | payer MEDICARE, OTHER, SELFPAY ==
--- NOTE | 2020-09-06 11:45 | DI.RAD_ITS ---
EXAM: XR STANDING ALIGNMENT CLINICAL HISTORY: preop. TECHNIQUE: 2D digital imaging was performed. COMPARISON: CR XR KNEE LT 4V+ from 06/20/2020 FINDINGS: There is a left hip prosthesis and right knee prosthesis evident. No fractures or loosening evident. There are significant narrowing in the medial compartment left knee which has progressed significan tly since 06/20/2020, given that both were standing views. In addition, there appears to be an osteo chondral defect in the outer 3rd of the medial femoral condyle surface. The right hip exhibits mild degenerative changes. Some tilting of right talar dome is noted when com pared to the more horizontal orientation the left talar dome at the ankle level. The no osteochondra l defects of the talar domes evident on this image. IMPRESSION: DATA REPOSITORY: RADIATION DOSE DELIVERED:
--- NOTE | 2020-09-06 11:45 | DI.RAD_ITS ---
EXAM: XR KNEE LT 1V CLINICAL HISTORY: preoperative. TECHNIQUE: 2D digital imaging was performed. COMPARISON: CR XR KNEE LT 4V+ from 06/20/2020 FINDINGS: Single lateral view of the left knee compared to 06/20/2020. There is no obvious fracture but there is now a joint effusion which was not evident on prior study. This fills the suprapatellar bursa. IMPRESSION: DATA REPOSITORY: RADIATION DOSE DELIVERED:
== END 2020-09-06 12:37 ==
PROVIDERS: PCP Family Medicine; Referring Provider Family Medicine; Visit Provider Student in an Organized Health Care Education/Training Program
DX: M17.12 Unilateral primary osteoarthritis, left knee (principal); M25.462 Effusion, left knee; M22.42 Chondromalacia patellae, left knee; M23.92 Unspecified internal derangement of left knee; Z98.890 Other specified postprocedural states; E11.69 Type 2 diabetes mellitus with other specified complication; Z79.4 Long term (current) use of insulin
CPT/HCPCS: 99213; 73560; 77073

== ENCOUNTER 2020-09-28 00:50 | Outpatient (CLI) | payer MEDICARE, OTHER, SELFPAY ==
[2020-09-28 11:19] LABS: HCT 46.1 % (40.0-50.0); HGB 14.2 g/dL (13.5-17.5); MCH 29.6 pg (27.0-33.0); MCHC 30.8 % (32.0-36.0); MCV 96.2 fL (80-95); MPV 10.1 fL (8.0-11.0); Platelet Count 369 10^3/uL (130-400); RBC 4.79 10^6/uL (4.36-5.78); RDW 14.1 % (11.8-14.1); WBC 7.27 10^3/uL (4.4-10.8)
[2020-09-28 12:11] LABS: BUN 23 mg/dL (7-18); CREATININE 1.12 mg/dL (0.70-1.30); Calcium 9.5 mg/dL (8.5-10.1); Chloride 101 mmol/L (98-107); Glucose 202 mg/dL (74-106); Potassium 4.6 mmol/L (3.5-5.1); Sodium 139 mmol/L (136-145)
[2020-09-30 10:35] LABS: COVID-19 RT-PCR Result NEGATIVE (Negative)
== END 2020-09-28 01:10 ==
PROVIDERS: PCP Family Medicine; Visit Provider Student in an Organized Health Care Education/Training Program
DX: M25.562 Pain in left knee (principal); M17.12 Unilateral primary osteoarthritis, left knee; G25.0 Essential tremor; Z11.52 Encounter for screening for COVID-19; Z01.818 Encounter for other preprocedural examination; Z01.812 Encounter for preprocedural laboratory examination
CPT/HCPCS: 36415; 80048; 85027; U0003

== ENCOUNTER 2020-10-02 08:58 | Day surgery (SDC) | payer MEDICARE, OTHER, SELFPAY ==
--- NOTE | 2020-09-13 14:04 | PDOC.ANES ---
Date of service: 09/13/20 Time of Service: 14:04 Anesthesia Note Report Anesthesia Note: Request for anesthesia chart review for a prospective upcoming Left TKA with Dr. Espinal. Mr. Arevalo is a 70 yo male Allergies: ceftriaxone, Cephalosporins, Ciprofloxacin, Meperidine, and Morphine Patient has a history significant to Chest pain, Asthma, Hypothyroidism, Diabetes, osteoarthritis. Reason for request for anesthesia evaluation pertained to recent complaint and hospitalization for chest pain. The patient presented to the ER after initially believing it was GERD and treating with TUMs. The patient had relief from nitroglycerin SL and eventually a NTG infusion per the note. The patient was evaluated by cardiology and during his course of treatment received an Echocardiogram and a Myocardial perfusion scan: both of these were not appreciably changed from his 2018 studies. EF is preserved at 59%, mild concentric changes to the LV. Noted that the patient is on multiple agents for GERD and has a significant history for GERD. I discussed the case with Dr. Espinal and I feel that he is appropriate to continue. I also attempted to call the patient to determine if he has had any continuing chest pain or other changes. Patient did not answer, will try again.
[2020-10-02] VITALS (7 sets, daily range): BP systolic 111–171; BP diastolic 42–59; PULSE 53–67; RESP 15–18; TEMP 36.2–36.8; O2SAT 16–99
[2020-10-02] MEDS: Lactated Ringers 1,000 ML 30 ML IV (10:05)
[2020-10-02] MEDS: Acetaminophen 500 MG TAB 1000 MG PO (10:15)
[2020-10-02] MEDS: Gabapentin 300 MG CAP PO (10:15)
[2020-10-02] MEDS: Celecoxib 200 MG CAP 400 MG PO (10:16)
[2020-10-02] MEDS: VANCOMYCIN/WATER (PEG) 1 GM/200 ML BAG IVPB (10:24)
[2020-10-02] MEDS: Bupivacaine 0.25% Pres-Free 10 ML VIAL (10:42)
[2020-10-02] MEDS: Ketorolac 30 MG/ML VIAL (11:41)
[2020-10-02] MEDS: Bupivacaine 0.25% Pres-Free 30 ML VIAL (11:41)
[2020-10-02] MEDS: Normal Saline 20 ML VIAL (11:42)
--- NOTE | 2020-10-02 13:22 | PDOC.DSDIS_ITS ---
Documented by User: MEGAN Mo 10/02/20 13:28 Discharge Plan Disposition Patient Disposition: HOME Condition: Good Discharge Details Reason For Visit: Left Knee DJD Attending Provider: Abhi Espinal Primary Care Provider: Beatriz Cotton V Home Meds and New Rx's Prescriptions: New acetaminophen 500 mg capsule 1,000 mg PO Q8H PRN PRNQty: 90 RF: 0 aspirin 81 mg tablet,delayed release (DR/EC) 81 mg PO BID Qty: 60 RF: 0 celecoxib 200 mg capsule 200 mg PO BID Qty: 60 RF: 0 pantoprazole 40 mg tablet,delayed release (DR/EC) 40 mg PO DAILY Qty: 30 RF: 0 oxycodone 5 mg tablet 5 mg PO Q4H MDD 15mg PRN (Reason: pain) Qty: 14 RF: 0 Continued Levemir FlexTouch U-100 Insuln 100 unit/mL (3 mL) insulin pen 44 unit SC BID RF: 0 amoxicillin 500 mg tablet 2,000 mg PO .PROIR TO DENTAL RF: 0 cyanocobalamin (vitamin B-12) 1,000 mcg Tablet 1,000 mcg PO DAILY RF: 0 meclizine 25 mg Tablet 25 mg PO Q6H PRNRF: 0 albuterol sulfate 8.5 GM HFA aerosol inhaler 2 puff Inhalation Q4H RF: 0 fluoxetine [Prozac] 20 MG capsule 40 mg PO DAILY RF: 0 bisoprolol fumarate 10 MG tablet 10 mg PO DAILY Qty: 90 RF: 3 vitamin E 200 UNIT capsule 400 unit PO DAILY RF: 0 metformin 500 MG tablet extended release 24 hr 1,000 mg PO BID RF: 0 levothyroxine 75 mcg tablet 150 mcg PO DAILY RF: 0 simvastatin 10 mg Tablet 10 mg PO DAILY RF: 0 insulin aspart U-100 [Novolog Flexpen U-100 Insulin] 100 unit/mL (3 mL) insulin pen 0 unit SUBCUT DAILY RF: 0 sucralfate [Carafate] 1 gram tablet 1 g PO QACHS Qty: 120 RF: 0 lisinopril 10 MG tablet 5 mg PO DAILY RF: 0 Discontinued ibuprofen [Advil] 200 mg Tablet 200 mg PO DAILY PRNRF: 0 aspirin 81 mg Tablet 81 mg PO DAILY RF: 0 omeprazole 20 MG capsule,delayed release(DR/EC) 40 mg PO QPM Qty: 0 RF: 0 Discharge Instructions Additional Instructions: Total Knee Discharge Instructions Activity: The most important activity is to walk. You should try to take short walks a few times a day. It is important that when resting you work on keeping the knee straight. Avoid putting a pillow behind the knee as this will encourag e flexion. Work on range of motion exercises as provided by Physical Therapy. - Start outpatient physical therapy within 2 weeks. - You should wear the FARIDEH hose on both legs for 2 weeks. Dressing: Keep the surgical dressing in place for at least one week. After the first week it may be removed and replace with light gauze and tape or nothing. It may get wet after 3 days but avoid soaking the dressing. If it gets wet, just lightly pat dry. Medications: - You should take Tylenol and anti-inflammatory Celebrex as your primary pain control medications. If the Celebrex is too expensive or not covered, please call the office for another alternative (Advil/Ibuprofen or Naproxen/Aleve) - You have been prescribed a stronger pain medication Oxycodone for breakthrough pain, take as needed as prescribed. - You have also been prescribed a stomach acid reduction agent Pantoprozole to help reduce stomach acid and reflux. - You will be taking Aspirin 81mg twice a day for DVT prevention unless instructed otherwise. - If you have constipation you should take Colace or Miralax (both [id number]). It takes most people 3-4 days to have a bowel movement. Follow-up: 2 weeks If you have any acute concerns or questions, please do not hesitate to contact the office at [phone]. You may contact Dr. Espinal with any questions after hours through the hospital at [phone] or on his cell phone at [phone]. Equipment/Supplies: Walker Activity:: Activity as Tolerated Shower/Bathe:: 72 hours Diet:: As Tolerated Discharge Orders Discharge Orders: Discharge Order (Routine); Ordered 10/02/20 Ordered By: Abhi Espinal DS: Diagnosis Discharge Diagnosis (1) Chondromalacia patellae of left knee: Status: Acute Documented by User: Abhi Espinal MD 10/02/20 15:27 Discharge Plan Disposition Patient Disposition: HOME Condition: Good Discharge Details Reason For Visit: Left Knee DJD Attending Provider: Abhi Espinal Primary Care Provider: Beatriz Cotton V Home Meds and New Rx's Prescriptions: New acetaminophen 500 mg capsule 1,000 mg PO Q8H PRN PRNQty: 90 RF: 0 aspirin 81 mg tablet,delayed release (DR/EC) 81 mg PO BID Qty: 60 RF: 0 celecoxib 200 mg capsule 200 mg PO BID Qty: 60 RF: 0 pantoprazole 40 mg tablet,delayed release (DR/EC) 40 mg PO DAILY Qty: 30 RF: 0 oxycodone 5 mg tablet 5 mg PO Q4H MDD 15mg PRN (Reason: pain) Qty: 14 RF: 0 Continued Levemir FlexTouch U-100 Insuln 100 unit/mL (3 mL) insulin pen 44 unit SC BID RF: 0 amoxicillin 500 mg tablet 2,000 mg PO .PROIR TO DENTAL RF: 0 cyanocobalamin (vitamin B-12) 1,000 mcg Tablet 1,000 mcg PO DAILY RF: 0 meclizine 25 mg Tablet 25 mg PO Q6H PRNRF: 0 albuterol sulfate 8.5 GM HFA aerosol inhaler 2 puff Inhalation Q4H RF: 0 fluoxetine [Prozac] 20 MG capsule 40 mg PO DAILY RF: 0 bisoprolol fumarate 10 MG tablet 10 mg PO DAILY Qty: 90 RF: 3 vitamin E 200 UNIT capsule 400 unit PO DAILY RF: 0 metformin 500 MG tablet extended release 24 hr 1,000 mg PO BID RF: 0 levothyroxine 75 mcg tablet 150 mcg PO DAILY RF: 0 simvastatin 10 mg Tablet 10 mg PO DAILY RF: 0 insulin aspart U-100 [Novolog Flexpen U-100 Insulin] 100 unit/mL (3 mL) insulin pen 0 unit SUBCUT DAILY RF: 0 sucralfate [Carafate] 1 gram tablet 1 g PO QACHS Qty: 120 RF: 0 lisinopril 10 MG tablet 5 mg PO DAILY RF: 0 Discontinued ibuprofen [Advil] 200 mg Tablet 200 mg PO DAILY PRNRF: 0 aspirin 81 mg Tablet 81 mg PO DAILY RF: 0 omeprazole 20 MG capsule,delayed release(DR/EC) 40 mg PO QPM Qty: 0 RF: 0 Discharge Instructions Additional Instructions: Total Knee Discharge Instructions Activity: The most important activity is to walk. You should try to take short walks a few times a day. It is important that when resting you work on keeping the knee straight. Avoid putting a pillow behind the knee as this will encourage flexion. Work on range of motion exercises as provided by Physical Therapy. - Start outpatient physical therapy within 2 weeks. - You should wear the FARIDEH hose on both legs for 2 weeks. Dressing: Keep the surgical dressing in place for at least one week. After the first week it may be removed and replace with light gauze and tape or nothing. It may get wet after 3 days but avoid soaking the dressing. If it gets wet, just lightly pat dry. Medications: - You should take Tylenol and anti-inflammatory Celebrex as your primary pain control medications. If the Celebrex is too expensive or not covered, please call the office for another alternative (Advil/Ibuprofen or Naproxen/Aleve) - You have been prescribed a stronger pain medication Oxycodone for breakthrough pain, take as needed as prescribed. - You have also been prescribed a stomach acid reduction agent Pantoprozole to help reduce stomach acid and reflux. - You will be taking Aspirin 81mg twice a day for DVT prevention unless instructed otherwise. - If you have constipation you should take Colace or Miralax (both [id number]). It takes most people 3-4 days to have a bowel movement. Follow-up: 2 weeks If you have any acute concerns or questions, please do not hesitate to contact the office at [phone]. You may contact Dr. Espinal with any questions after hours through the hospital at [phone] or on his cell phone at [phone]. Equipment/Supplies: Walker Activity:: Activity as Tolerated Shower/Bathe:: 72 hours Diet:: As Tolerated Discharge Orders Discharge Orders: Discharge Order (Routine); Ordered 10/02/20 Ordered By: Abhi Espinal
--- NOTE | 2020-10-02 14:31 | PT.INIE ---
Date of service: 10/02/20 Time of Service: 14:31 PT Notes Visit Reasons: Left Knee DJD Physical Therapy Day Surgery Initial Evaluation Date: 10/02/2020 Referring Doctor: Abhi Espinal MD PT Orders: PT CONSULT: Status post Ortho surgery. Precautions: WBAT on left LE. Patient Profile/Admitting Diagnosis: Arianna is a 70-year-old male with diagnosis of internal derangement of left knee, chondromalacia patella of the left knee, and osteoarthritis of the left knee and is status post left total knee arthroplasty on postoperative day 0. 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 Insect bite Left knee pain Lumbosacral neuritis Neck pain on left side Obesity Prolonged depression Psoriasis Radicular syndrome of lower limbs Resting tremor Right rotator cuff tear Injection under fluoroscopy: 11/04/18 Status post rotator cuff repair DOS: 01/25/2019 Septic arthritis of knee Septic joint Shoulder pain, left Shoulder pain, right Sleep apnea Trigeminy URI, acute Vertigo Vitamin B12 deficiency Surgical History Hx of total knee arthroplasty Right S/P cholecystectomy S/P lumbar spine operation x2 Status post right rotator cuff repair (~01/25/19) Repair of supraspinatus, distal clavicle excision, biceps tenotomy Dr. 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 He will have support from his son and his daughter as he recovers. He stayed independent with all mobility ADL performance using his single-point cane. Equipment Owned/DME: [facility], [facility] Subjective: Agreeable to PT consult. Denies headache, chest pain, and lightheadedness throughout session. Did report pain level of up to 3/10 in the left knee during ambulation activity. Objective: General Observation: IV in in the left UE. Cryo/Cuff on the left knee. DULCE MARIA wraps on left LE. TEDS on her right leg. Mental Status: Alert and oriented x4 Pain: 3/10 in the left knee Vital Signs: Within normal limits as closely monitored by Nurse Nazario ROM: Right Upper Extremity: Shoulder Flexion WFL. Shoulder abduction WFL. Elbow flexion WFL. Wrist flexion WFL. Functional opening and closing of hand WFL. Left Upper Extremity: Shoulder Flexion WFL. Shoulder abduction WFL. Elbow flexion WFL. Wrist flexion WFL. Functional opening and closing of hand WFL. Right Lower Extremity: Hip flexion WFL. Hip abduction WFL. Knee flexion 30 degrees to 95 degrees. Knee extension -30 degrees. Ankle dorsiflexion WFL. Ankle plantarflexion WFL. Left Lower Extremity: Hip flexion WFL. Hip abduction WFL. Knee flexion 45degrees to 95 degrees. Knee extension -45 degrees. Ankle dorsiflexion WFL. Ankle plantarflexion WFL. Strength: Right Upper Extremity: Shoulder flexors 4/5. Shoulder abductors 4/5. Elbow flexors 4/5. Elbow extensors 4/5. Wood Heel Finisher strong. Left Upper Extremity: Shoulder flexors 4/5. Shoulder abductors 4/5. Elbow flexors 4/5. Elbow extensors 4/5. Wood Heel Finisher strong. Right Lower Extremity: Hip flexors 4/5. Hip abductors 4/5. Knee flexors 3-/5. Knee extensors 3-/5. Ankle dorsiflexors 4/5. Ankle plantarflexors 4/5. Left Lower Extremity: Hip flexors 4/5. Hip abductors 4/5. Knee flexors 3-/5. Knee extensors 3-/5. Ankle dorsiflexors 4/5. Ankle plantarflexors 4/5. Sensation: Intact in bilateral lower extremities as to light touch and pain. Bed Mobility/Transfers: Rolling independent Supine to sit independent Sit to stand contact-guard assist Stand to sit contact-guard assist Bed to chair contact-guard assist Chair to bed contact-guard assist Gait: Guided patient through short distance ambulation from bedside to bedside chair of about 10 to 12 feet using front wheeled walker. Proceeded to doing a longer distance ambulation of up to 100 feet using same AD with step to gait pattern with just contact-guard assist of PT and wheelchair follow of nurse Mansi. Stairs: Instructed patient with negotiating up-and-down 10 x 4 inch steps while holding onto a rail with 1 hand and with a single-point cane with the other hand requiring contact-guard assist with step-to gait pattern of PT and standby assist of Nurses Nolvia and Mansi for safety. No increase in pain reported. Balance: Static Sitting: Normal Dynamic Sitting: Normal Static Standing: Fair Dynamic Standing: Fair Special Tests: Mobility Limitations Standardized Measure [facility] AM-PAC 6 clicks Basic Mobility Inpatient Short Form: Raw Score: 20 CMS Score: 36% deficit Informed Consent/Education: Patient instructed in purpose of PT consult. Packet containing TKA exercise protocol has been given to patient. Education and training on initial set of exercises that can be done at home have been completed with patient. Assessment: Arianna requires the use of a front wheeled walker to maximize independence and reduce fall risk for all mobility ADL performance at home. He will have the support of his son and daughter as he recovers at home. He will benefit from outpatient PT services in order to facilitate return to independent community ambulation. Patient presents with clinical signs and symptoms consistent with current/admitting diagnoses that have resulted to mobility limitations, gait instability, generalized weakness, and impairment of motor control as demonstrated by the following impairment level findings: 1. Decreased strength to left knee major muscle groups 2. Impaired standing balance 3. Limitation of joint range of motion in left knee Impairments are contributing to the following functional limitations: 1. Inability to safely ambulate without assistive device 2. Increase completion time for mobility ADL performance 3. Increased fall risk Patient is assessed as a 18821 moderate complexity based on the following: History: 70-year-old male with impairment level findings, functional limitations, and past medical history as indicated above Examination: Demonstrable impairment in strength, balance, and mobility level with underlying impairments and functional limitations as documented above Presentation: Evolving Decision Makin moderate Goals: N/A. PT evaluation and 1-2 treatment sessions only for functional mobility training using recommended AD and for HEP instruction. Plan of Care/Treatment Plan: N/A. PT evaluation and 1-2 treatment session only for functional mobility training using recommended AD and for HEP instruction. DISCHARGE RECOMMENDATIONS: Home when medically cleared by orthopedic surgeon. Outpatient physical therapy services to facilitate return to independent community ambulation using [facility] TREATMENT CODE/TIME: 89437 x 30 minutes, 75850 x 32 minutes beginning at 14:31 PM. Thank you for the opportunity to participate in the care of this patient. Francesca Cyr PT, DPT, CLT [facility] [place], [place]
[2020-10-02] MEDS: oxyCODONE 5 MG TAB PO (14:59)
--- NOTE | 2020-10-02 16:47 | PDOC.CMPRO ---
Care Management Progress Note CM consulted for [facility] order coordination. SHON called Dedra RODARTE to notify of pending orders and faxed orders once available to [facility]-ATTN: Dedra Paul.
--- NOTE | 2020-10-02 17:27 | W.PM.OP ---
Date of service: 10/02/20 Time of Service: 13:27 Operative Note Operative Note DATE OF PROCEDURE: 10/02/20 PRE-OP DIAGNOSIS: Left Knee Osteoarthritis POST-OP DIAGNOSIS: same PROCEDURE: Left Total Knee Replacement SURGEON: Abhi Espinal [facility] [employer] [employer] REPRESENTATIVE: Lindsay Lynch ANESTHESIA: regional and spinal ESTIMATED BLOOD LOSS: 200 PATHOLOGY: none sent TOURNIQUET TIME: 33 COMPLICATIONS: None Patient was transported to: same day Patient's condition: stable Implants: 1. Depuy Attune Posterior Stabilized Femoral Component, Size 9 2. Depuy Attune Fixed Platform Tibial Component, Size 8 3. Depuy Attune 9x6mm Fixed, Stabilized Poly 4. Depuy Attune Patellar Component, Size 38mm Indications: I have seen Gal in clinic for symptoms of LEFT knee arthritis, confirmed with radiographic findings. Gal has exhausted nonoperative methods and was having significant limitations in daily function and desired better function and less pain. I discussed the technical details of a knee replacement. I explained the risks of the procedure to include, but not limited to, bleeding, infection, pain, stiffness, fracture, damage to nerves and vessels, damage to muscles and tendons, loosening, need for repeat procedure, blood clot and cardiopulmonary demise. Despite these risks, Gal elected to proceed. Findings: There was significant signs of arthritis focused on the medial knee as well as the patellofemoral joint. The medial femur had complete loss of cartilage and irrigularity to the subchondral bone. There was a large effusion and inflammatory synovium. Procedure Description: Gal was greeted in the preoperative holding area where the correct side was identified and marked. The consent was reviewed with the patient and signed. The history and physical was updated. All questions were answered. Preoperative mediacations were administered: Acetaminophen 1000mg, Celebrex 400mg, and Gabapentin 300mg. An adductor canal block was then administered by the anesthesia team in the PACU. He was taken back to the operating room. A spinal anesthestic was then administered. The patient was placed into the supine position on the operating room table. A nonsterile tourniquet was placed high onto the leg but only used for cementing. Posts were placed for positioning during the procedure. All bony prominences were well padded. Prophylactic antibiotics in the form of Vancomycin were administered. 1g of Tranxemic Acid was given intravenously within 30 minutes of incision. The right leg was then prepped with Chloraprep and draped in a standard fashion with impervious stockinette. A second prep with Chloraprep was performed prior to application of Iodine impregnated skin protection. A timeout to confirm correct identity, side and site, procedure, allergies, anesthesia, and medical concerns was performed. With the knee in some flexion, a midline incision was made overlying the knee. Full thickness skin flaps were raised once the extensor mechanism was encountered. These were raised medially and laterally. Any bleeding was controlled with electrocautery. Once the extensor mechanism was fully exposed, a medial parapatellar arthrotomy was performed in a flexed position. All bleeding from the arthrotomy and the geniculate arteries was coagulated. A medial subperiosteal peel was performed with electrocautery to the midcoronal plane. The fat pad was removed while keeping the patellar tendon protected. The anterior distal femur synovium was removed for later visualization. The ACL and PCL were resected and the anterior horn of the lateral meniscus was transected. The knee was then flexed with the patella everted. Using a step drill, and based on preoperative templating, the femoral canal was entered. This was done with a step drill without any difficulty. The intramedullary distal femoral cut guide was inserted, set to a 5 degree valgus cut and 9mm cut thickness. The distal femoral cut guide was then held in position and pinned. With the soft tissues protected, the distal cut was performed. This was passed over a few times to ensure a planar cut. I then turned attention to the tibia. The extramedullary guide was placed onto the leg. The distal aspect was slid medial to adjust for position of center of ankle and stay in line with shaft of the tibia. Approximately 3-5 degrees of posterior slope was kept in the proximal cutting guide. The center of the guide was aligned with the PCL. The stylus was used to assess cut thickness. The medial side, most involved side, was set for a 4mm cut. This was then held in position and pinned into place with 2 additional pins and a cross pin for stability. The medial and lateral collateral ligaments were protected and the cut was performed. With this completed, it was assessed and noted to be of appropriate dimensions. The guide was removed. A spacer block was inserted and the knee was brought into extension. The 6mm spacer block provided full extension, without hyperextension and with stability of both the medial and lateral collateral ligaments was assessed. The pins from the femur and the tibia were then removed. The distal femur was then sized. The anterior stylus was placed onto the lateral ridge of the anterior femur. This indicated a size 9 femur. The external rotation of the guide was adjusted to 3 degrees to match the epicondylar axis, perpendicular to Esvin?s line. The 4-in-1 cutting guide was the placed. The posterior medial femur cut was evaluated and appeared of good thickness. The spacer block was inserted underneath the cutting guide and stability was confirmed in 90 degrees of flexion. An xavier wing was used to confirm appropriate position of the anterior cut to avoid notching. This cutting guide was ensured to be flush on the cut surface and then pinned into place with headed pins. While protecting the soft tissues, quad tendon, and collateral ligaments, the anterior and posterior cuts were performed with a saw. The central two pins were removed and the posterior and anterior chamfers were cut next. The notch-cutting guide was placed. This was pinned to lateralize the femoral component as much as possible while keeping it flush on the cut surface. This was then pinned into position. A reciprocating saw was used to make the notch cut. A rasp smoothed the cut surfaces. A trial posterior stabilized femoral component was then inserted, impacted down to the cut surfaces, and the lug holes were drilled. A provisional trial tibial component was placed and the knee was brought through range of motion. There was noted to be excellent extension and flexion. There was no significant instability. The patella was tracking without thumbs. The tibial cut surface was fully exposed. The medial and lateral menisci were removed. The tibia was then sized as a 8. The tibia had been previously marked during trialing to correspond to the center of the tibial component to help with rotation. The trial was aligned to this lindsay, approximately rotated to the medial 1/3rd of the tibial tubercle. The trial was pinned into place. The tibia was prepared with a reamer and a keel punch. The knee was then brought into extension and the patella was measured as 26mm. Using the patellar clamp and cut guide, this was resected to a flat surface with at least 13mm of thickness remaining. The size 38 patella fit the best. This was oriented and then clamped into position. The lugs were drilled. The trial components were removed. The final components, except for the polyethylene were opened on the back table. The periosteal and capsular tissues, especially posteriorly, around the knee were then systematically injected with a periarticular cocktail consisting of 50cc 0.25% Marcaine, 30mg Ketorolac, 20cc of Exparal and 50cc of injectable saline. The tourniquet was then inflated to 275mmHg. The knee was thoroughly irrigated with a pulse lavage and dried. On the back table, with the implants opened, the cement was mixed. 2 batches of antibiotic laden cement were prepared with vacuum assistance. After the cement was ready a small amount was placed on to the back side of the tibial component at the keel. A small amount was placed onto the posterior flange of the femur. Cement was manual pressurized and impregnated into the cut surface of the tibia. The tibial component was then inserted into the cut surface and impacted into position. Excess cement was removed and the component was reimpacted. Again, excess cement was removed and our attention was then turned to the femur. The femoral cut surface was once again dried and cement was manually impacted into the cut surface. The femoral component was lined with the lug holes and impacted. Excess cement was removed. It was ensured to be down against the cut surface. The trial polyethylene was then inserted and the leg was brought out into full extension for the duration of the cement curing process, approximately 15min. Cement was lastly manually impacted into the cut surface of the patella and the patellar button was clamped into position and held. During this process attention was turned to the gutters of the knee and for all interfaces for any excess cement. While the cement was hardening, the knee was irrigated with Irrisept chlorhexadine solution. This was allowed to sit in the knee for 3 minutes. After the cement had finally cured, approximately 15min, the clamp was removed from the patella and the knee was taken through range of motion. A size 6mm polyethylene component provided the best range of motion and stability with less than 2mm gapping with medial and lateral stress and full extension without significant hyperextension. The patella was tracking with a no-thumbs technique. The trial poly was removed and once again the knee was checked for any loose, excess, or errant cement. The poly component was then inserted and impacted into position after cleaning and drying the tibial tray. The capsule was then reapproximated with a No. 1 Vicryl at multiple locations. The capsule was finally closed with a No. 2 Stratafix, barbed suture. The tourniquet was then released and the arthrotomy appeared watertight without significant bleeding. The second dosing of 1g TXA was started. Deep tissues were then reapproximated with 0 Vicryl and 2-0 Vicryl. The skin was closed with a running 3-0 Monocryl in a subcuticular fashion. This was reinforced with skin glue. A Mepilex silver dressing was applied along with a [id number] DULCE MARIA wrap. A CryoCuff was applied. Gal was transferred to the hospital bed without difficulty an suffering no apparent complication. Gal has a good prognosis. Physical therapy will start today and without restrictions, weight-bearing as tolerated. Aspirin 81mg BID will be used for DVT prophylaxis.
== END 2020-10-02 16:18 | disposition home or self-care (01) ==
PROVIDERS: PCP Family Medicine; Visit Provider Student in an Organized Health Care Education/Training Program
PROC: (CPT 27447; principal; 2020-10-02 11:45)
DX: M17.12 Unilateral primary osteoarthritis, left knee (principal); Z96.652 Presence of left artificial knee joint; K21.9 Gastro-esophageal reflux disease without esophagitis; G89.18 Other acute postprocedural pain; I10 Essential (primary) hypertension; E11.43 Type 2 diabetes mellitus with diabetic autonomic (poly)neuropathy
CPT/HCPCS: 27447; C1776; 76942; 97162; 97530; J1885; J2405

== ENCOUNTER 2020-10-18 11:37 | Outpatient (CLI) | payer MEDICARE, OTHER, SELFPAY ==
--- NOTE | 2020-10-18 11:00 | DI.RAD_ITS ---
EXAM: XR KNEE LT 1V INDICATION: 1st post op l tka. COMPARISON: CR XR KNEE LT 1V from 09/06/2020 CR XR STANDING ALIGNMENT from 09/06/2020 CR XR STANDING ALIGNMENT from 10/18/2020 TECHNIQUE: 2D digital imaging was performed. FINDINGS: Standing AP views were performed, above the acetabula through the ankles. A left total hip prosthesi s is again noted. The left acetabular component per projects approximately 5 millimeters superior to the right hip. There are bilateral total knee prostheses. There has been no change. There are deg enerative changes of both ankles. There is severe medial downsloping of the right talus and mild med ial downsloping of the left talus. Soft tissue swelling is noted bilaterally, left greater than righ t. IMPRESSION: Mild leg length discrepancy. Bilateral knee prostheses and left hip prosthesis. DATA REPOSITORY: RADIATION DOSE DELIVERED:
== END 2020-10-18 11:38 | disposition home or self-care (01) ==
LOC: DIORS 11:37
PROVIDERS: PCP Family Medicine; Referring Provider Family Medicine; Visit Provider Student in an Organized Health Care Education/Training Program
DX: Z96.652 Presence of left artificial knee joint (principal); Z96.642 Presence of left artificial hip joint; Z47.1 Aftercare following joint replacement surgery
CPT/HCPCS: 73560; 77073

== ENCOUNTER → 2020-11-16 10:26 | Outpatient (BNVA) | payer MEDICARE, OTHER, SELFPAY | PROVIDERS: PCP Family Medicine; Referring Provider Family Medicine; Visit Provider Physician Assistant | DX: Z47.1 Aftercare following joint replacement surgery (principal); Z96.652 Presence of left artificial knee joint ==

== ENCOUNTER 2020-11-30 10:00 | Outpatient (REF) | payer MEDICARE, OTHER, SELFPAY ==
[2020-11-30 16:32] LABS: Hemoglobin A1C 7.5 % (<5.7)
[2020-11-30 17:07] LABS: TSH 3.34 uIU/mL (0.36-3.74); Vitamin B12 917 pg/mL (193-986)
[2020-11-30 17:34] LABS: FREE T4 0.85 ng/dL (0.76-1.46)
== END 2020-11-30 10:01 | disposition home or self-care (01) ==
LOC: NCHCN 10:00
PROVIDERS: PCP Family Medicine; Visit Provider Family Medicine
DX: E11.9 Type 2 diabetes mellitus without complications (principal); E03.9 Hypothyroidism, unspecified
CPT/HCPCS: 82607; 83036; 84439; 84443

== ENCOUNTER 2021-06-28 13:47 | Outpatient (REF) | payer MEDICARE, OTHER, SELFPAY ==
[2021-06-28 19:41] LABS: HCT 43.3 % (40.0-50.0); HGB 13.5 g/dL (13.5-17.5); MCH 30.4 pg (27.0-33.0); MCHC 31.2 % (32.0-36.0); MCV 97.5 fL (80-95); MPV 10.6 fL (8.0-11.0); Platelet Count 336 10^3/uL (130-400); RBC 4.44 10^6/uL (4.36-5.78); RDW 13.9 % (11.8-14.1); RDW-SD 50.3 fL; WBC 9.99 10^3/uL (4.4-10.8)
[2021-06-28 19:44] LABS: ESR 45 mm/hr (0-20)
[2021-06-28 20:39] LABS: ALT 19 U/L (16-63); AST 13 U/L (15-37); Albumin 3.7 g/dL (3.4-5.0); Alkaline Phosphatase 58 U/L (46-116); Anion Gap 7.8 mmol/L (3-11); BUN 27 mg/dL (7-18); Bilirubin, Total 0.4 mg/dL (0.2-1.0); C-Reactive Protein 2.55 mg/dL (0.0-0.3); CO2 27.2 mmol/L (21.0-32.0); Calcium 9.5 mg/dL (8.5-10.1); Chloride 105 mmol/L (98-107); Glucose 178 mg/dL (74-106); Potassium 4.6 mmol/L (3.5-5.1); Sodium 140 mmol/L (136-145); TSH (W/Ref FT4) 2.86 uIU/mL (0.36-3.74); Total Protein 7.5 g/dL (6.4-8.2)
[2021-06-28 21:25] LABS: Hemoglobin A1C 7.3 % (<5.7)
[2021-07-01 13:44] LABS: PSA, Screening 0.7 ng/mL (0.0-6.5)
== END 2021-06-28 13:48 | disposition home or self-care (01) ==
LOC: NCHCN 13:47
PROVIDERS: PCP Family Medicine; Visit Provider Family Medicine
DX: E11.9 Type 2 diabetes mellitus without complications (principal); E03.9 Hypothyroidism, unspecified; I10 Essential (primary) hypertension; E78.5 Hyperlipidemia, unspecified; R63.4 Abnormal weight loss
CPT/HCPCS: 80053; 84153; 85027; 85652; 83036; 84443; 86140

== ENCOUNTER 2021-07-08 14:26 | Outpatient (CLI) | payer MEDICARE, OTHER, SELFPAY ==
--- NOTE | 2021-07-08 14:15 | DI.RAD_ITS ---
Exam(s) XR HIP LT COMPLETE AP PELVIS EXAM: XR HIP LT COMPLETE AP PELVIS CLINICAL HISTORY: left hip pain. TECHNIQUE: 2D digital imaging was performed. COMPARISON: CR XR HIP LT COMPLETE AP PELVIS from 09/16/2019 FINDINGS: There is continued stable appearance of the position alignment of the components of the left hip pros thesis. No fracture or loosening evident. Calcified buttock granuloma is again noted. IMPRESSION: DATA REPOSITORY: RADIATION DOSE DELIVERED:
== END 2021-07-08 14:27 | disposition home or self-care (01) ==
LOC: DIORS 14:26
PROVIDERS: PCP Family Medicine; Referring Provider Family Medicine; Visit Provider Student in an Organized Health Care Education/Training Program
DX: M25.552 Pain in left hip (principal); Z96.642 Presence of left artificial hip joint; M70.62 Trochanteric bursitis, left hip
CPT/HCPCS: 99213; 73502

== ENCOUNTER 2021-07-12 02:18 | Outpatient (CLI) | payer MEDICARE, OTHER, SELFPAY ==
--- NOTE | 2021-07-12 09:00 | DI.CT_ITS ---
Exam(s) CT LOWER EXTREMITY LT WO EXAM: CT LOWER EXTREMITY LT WO CLINICAL HISTORY: focal calcific density vs. bony fragment on xray, LT HIP PAIN, M25.552,Z96. TECHNIQUE: COMPARISON: CR XR HIP LT COMPLETE AP PELVIS from 07/08/2021 CR XR HIP LT COMPLETE AP PELVIS from 07/08/2021 FINDINGS: CT examination of the left hip was performed. There is a total hip joint replacement position. The components are well seated. Note is made of a roughly 15 millimeter in diameter irregular calcification which lies in subcutaneou s fat of the lateral hip region. No loose bony fragment is seen. The findings as described are cons istent with an old injection granuloma or postinflammatory calcification. The soft tissue contents of the pelvis are unremarkable with no evidence of a pelvic mass or adenopat hy as visualized. The musculature of the hip region appears intact. IMPRESSION: Presumed postinflammatory calcification of the subcutaneous fat of the lateral hip as described above . RADIATION DOSE DELIVERED: 356.29mGy.cm Total DLP 10.04mGy CTDIvol RADIATION OPTIMIZATION: All CT scans at this facility use at least one of these dose optimization te chniques: automated exposure control; mA and/or kV adjustment per patient size (includes targeted exa ms where dose is matched to clinical indication); or iterative reconstruction.
== END 2021-07-12 02:38 ==
PROVIDERS: PCP Family Medicine; Visit Provider Student in an Organized Health Care Education/Training Program
DX: M25.552 Pain in left hip (principal); Z96.642 Presence of left artificial hip joint; L94.2 Calcinosis cutis
CPT/HCPCS: 73700

== ENCOUNTER → 2021-07-23 09:44 | Outpatient (BNVA) | payer MEDICARE, OTHER, SELFPAY | PROVIDERS: PCP Family Medicine; Referring Provider Family Medicine | DX: Z01.818 Encounter for other preprocedural examination (principal); M70.62 Trochanteric bursitis, left hip; E11.9 Type 2 diabetes mellitus without complications ==

== ENCOUNTER 2021-07-29 02:43 | Outpatient (CLI) | payer MEDICARE, OTHER, SELFPAY ==
[2021-07-29 10:26] LABS: Source Nasal/Nares
[2021-07-29 17:39] LABS: COVID-19 PCR Negative (Negative)
== END 2021-07-29 02:44 | disposition home or self-care (01) ==
LOC: LBO 02:43
PROVIDERS: PCP Family Medicine; Visit Provider Student in an Organized Health Care Education/Training Program
DX: Z20.822 Contact with and (suspected) exposure to COVID-19 (principal)
CPT/HCPCS: 87635

== ENCOUNTER 2021-07-31 10:03 | Day surgery (SDC) | payer MEDICARE, OTHER, SELFPAY ==
[2021-07-31] VITALS (7 sets, daily range): BP systolic 104–124; BP diastolic 49–73; PULSE 60–65; RESP 14–23; TEMP 36.3–37; O2SAT 92–99; BMI 35.7
--- NOTE | 2021-07-31 09:46 | W.ANESPRE ---
General Info Height: 5 ft 11 in Weight: 117.027 kg Body Mass Index (BMI): 35.9 Surgical Procedure: Operation Date: 07/31/21 12:25 Proposed Procedures Side Surgeon p Hip Excision Bony Fragment left lateral hip Left Abhi Espinal MD Meds Allergies and Home Medications Allergies Allergy/AdvReac Type Severity Reaction Status Date / Time ceftriaxone Allergy Severe ANAPHYLAXIS Unverified 07/29/21 15:56 Cephalosporins Allergy Severe Anaphylaxsi Unverified 07/29/21 15:56 s ciprofloxacin AdvReac Dizziness/L Unverified 07/29/21 15:56 ightheade meperidine HCl [From Demerol] AdvReac vomiting Unverified 07/29/21 15:56 morphine AdvReac vomiting Unverified 07/29/21 15:56 Home Medication Medication Instructions Recorded metformin 1,000 mg PO BID 04/07/14 vitamin E 400 unit PO DAILY 04/07/14 albuterol sulfate 2 puff INHALATION Q4H inhaler 10/16/14 fluoxetine [Prozac] 40 mg PO DAILY tab-cap 11/08/14 bisoprolol fumarate 10 mg PO DAILY #90 tab-cap 04/28/18 amoxicillin 500 mg tablet 2,000 mg PO .PROIR TO DENTAL tab 01/04/19 insulin detemir U-100 100 unit/mL 44 unit SC BID ml 01/04/19 (3 mL) subcutaneous pen levothyroxine 75 mcg tablet 150 mcg PO DAILY tab 01/04/19 lisinopril 5 mg PO DAILY 08/23/19 simvastatin 10 mg PO DAILY 06/20/20 cyanocobalamin (vitamin B-12) 1,000 mcg PO DAILY 06/28/20 meclizine 25 mg PO Q6H PRN 06/28/20 insulin aspart U-100 [Novolog 0 unit SUBCUT DAILY 09/04/20 Flexpen U-100 Insulin] sucralfate [Carafate] 1 g PO QACHS #120 tab 09/04/20 acetaminophen 1,000 mg PO Q8H PRN PRN #90 cap 10/02/20 aspirin 81 mg PO BID #60 tab 10/02/20 celecoxib 200 mg PO BID #60 cap 10/02/20 pantoprazole 40 mg PO DAILY #30 tab 10/02/20 cyclobenzaprine 5 mg tablet 5 mg PO BID PRN #10 tab 10/16/20 oxycodone 5 mg tablet 5 mg PO BID PRN #14 tab MDD 10mg 10/24/20 Current Visit Medications: Current Medications Generic Name Dose Route Start Last Admin Trade Name Brianne PRN Reason Stop Dose Admin Ringer's Solution 1,000 mls @ 80 mls/hr 07/31/21 06:00 IV 08/29/21 23:59 INFUSION BRANDON Clindamycin Phosphate/Dextrose 900 mg in 50 mls @ 50 mls/hr 07/31/21 06:00 Cleocin In D5w IVPB 07/31/21 23:59 PREOP BRANDON IV Miscellaneous Supplies 1 each 07/31/21 06:00 Iv Access IV 08/29/21 23:59 DIRECTED BRANDON Sodium Chloride 0 ml 07/31/21 06:00 Normal Saline Flush 10 Ml Syr IV 08/29/21 23:59 PRN PRN Sodium Chloride 0 ml 07/31/21 06:00 Normal Saline 10 Ml Vial IJ 08/29/21 23:59 DIRECTED PRN Sterile Water 0 ml 07/31/21 06:00 Water,Injection,Sterile 10 Ml Vial IJ 08/29/21 23:59 DIRECTED PRN PFSH Active Problems Active Problems: Problem Status Onset Code Trochanteric bursitis, left hip M70.62 Primary osteoarthritis of right hip M16.11 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 Internal derangement of left knee M23.92 Chest pain R07.9 Osteoarthritis of left knee M17.12 Left knee pain M25.562 Chronic low back pain M54.5, G89.29 Hypothyroidism E03.9 Asthma J45.909 Diabetic peripheral neuropathy E11.42 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/19/16 T84.53XA Essential tremor 11/21/14 G25.0 Medical History Active Problem List Trochanteric bursitis, left hip (Acute) Primary osteoarthritis of right hip (Acute) Chondromalacia patellae of left knee (Acute) Internal derangement of left knee (Acute) Chest pain (Acute) Osteoarthritis of left knee (Acute) Left knee pain (Acute) Chronic low back pain (Acute) Hypothyroidism (Chronic) Asthma (Chronic) Diabetic peripheral neuropathy (Acute) 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) Essential tremor (Acute 11/21/14) Medical History Arthralgia Back pain, acute Bradycardia Colon polyps Depression Diverticulosis DJD of right AC (acromioclavicular) joint Fatigue GERD (gastroesophageal reflux disease) Headache Cervical Hip pain, left History of tobacco use HTN (hypertension) Hypotension Infection of total right knee replacement Insect bite Lumbosacral neuritis Neck pain on left side Obesity Prolonged depression Psoriasis Radicular syndrome of lower limbs Resting tremor Right rotator cuff tear Injection under fluoroscopy: 11/04/18 Status post rotator cuff repair DOS: 01/25/2019 Septic arthritis of knee Septic joint Shoulder pain, left Shoulder pain, right Sleep apnea Trigeminy URI, acute Vertigo Vitamin B12 deficiency Surgical History Surgical History 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 Tobacco Smoking/Tobacco Use Status: Former Tobacco Use Alcohol Alcohol Intake: current Alcohol intake frequency: a few times a week Alcohol type: beer, wine and hard liquor Substance Use Substance use: Never Substance use type: does not use Vital Signs and Lab Results Lab Results Blood Type / Crossmatch: No Data to Display Complete Blood Count: No Data to Display Complete Metabolic Panel: No Data to Display Liver Function Panel: No Data to Display Coagulation Panel: No Data to Display Cardiac Panel: No Data to Display Arterial Blood Gas: No Data to Display Venous Blood Gas: No Data to Display Pancreas Panel: No Data to Display Thyroid Panel: No Data to Display Infectious Disease: Coronavirus (COVID-19)(PCR) Negative (Negative) 07/29/21 10:06 07/29/21 Coronavirus 2019 Source Nasal/Nares 07/29/21 10:06 07/29/21 Blood Cultures: No Data to Display Toxicology Panel: No Data to Display Imaging and Studies Imaging and Studies EKG Summary: 08/26: sinus rhythm, prob LAE. Stress Test Summary: 08/26: max HR 46% for predicted age. non-diagnostic. LVEF 50%. Echocardiogram Summary: 08/26: LVEF 60%, trace/mild TR. mild MR. 12/23: no prefusion defects noted. LVEF 43%. Anesthesia Assessment and Plan Anesthesia History Personal History: No History of Anesthesia Complications Family History: No Family History of Anesthesia Complications Implantable Cardiac Device Does patient have a Pacemaker or an ICD?: No ASA Classification ASA Score: ASA 3 Emergency Case?: No NPO Status NPO Status: NPO Clears >2 hours, Solids >8 hours Anesthesia Plan Resuscitation Status: Full Code Monitors Used: Standard Monitors Preoperative Comments:: 71 yo male for hip excision, left. Sig PMHx: hypothyroid (on replacement), asthma, DM (multiple agents, last A1c 7.3%) , former smoker, occ EtOH. Previous anes: spinal x 2. Santiago 2 grade 1, easy mask.
--- NOTE | 2021-07-31 09:48 | W.PM.DSUDISC ---
Discharge Plan Disposition Patient Disposition: HOME Condition: Good Discharge Details Reason For Visit: Left trochanteric bursa and bony fragment Attending Provider: Abhi Espinal Primary Care Provider: Beatriz Cotton V Home Meds and New Rx's Prescriptions: New hydrocodone-acetaminophen 5-325 mg tablet 1 tab PO Q6H PRN (Reason: severe pain) Qty: 6 RF: 0 acetaminophen 500 mg tablet 500 mg PO Q6H PRN (Reason: pain) Qty: 60 RF: 2 celecoxib 100 mg capsule 100 mg PO BID Qty: 30 RF: 0 Continued Levemir FlexTouch U-100 Insuln 100 unit/mL (3 mL) insulin pen 44 unit SC BID RF: 0 amoxicillin 500 mg tablet 2,000 mg PO .PROIR TO DENTAL RF: 0 cyanocobalamin (vitamin B-12) 1,000 mcg Tablet 1,000 mcg PO DAILY RF: 0 meclizine 25 mg Tablet 25 mg PO Q6H PRNRF: 0 albuterol sulfate 8.5 GM HFA aerosol inhaler 2 puff Inhalation Q4H RF: 0 fluoxetine [Prozac] 20 MG capsule 40 mg PO DAILY RF: 0 bisoprolol fumarate 10 MG tablet 10 mg PO DAILY Qty: 90 RF: 3 cyclobenzaprine 5 mg tablet 5 mg PO BID PRN (Reason: muscle spasm) Qty: 10 RF: 0 vitamin E 200 UNIT capsule 400 unit PO DAILY RF: 0 metformin 500 MG tablet extended release 24 hr 1,000 mg PO BID RF: 0 levothyroxine 75 mcg tablet 150 mcg PO DAILY RF: 0 simvastatin 10 mg Tablet 10 mg PO DAILY RF: 0 insulin aspart U-100 [Novolog Flexpen U-100 Insulin] 100 unit/mL (3 mL) insulin pen 0 unit SUBCUT DAILY RF: 0 sucralfate [Carafate] 1 gram tablet 1 g PO QACHS Qty: 120 RF: 0 lisinopril 10 MG tablet 5 mg PO DAILY RF: 0 aspirin 81 mg tablet,delayed release (DR/EC) 81 mg PO BID Qty: 60 RF: 0 pantoprazole 40 mg tablet,delayed release (DR/EC) 40 mg PO DAILY Qty: 30 RF: 0 Discontinued oxycodone 5 mg tablet 5 mg PO BID MDD 10mg PRN (Reason: severe postoperative pain) Qty: 14 RF: 0 acetaminophen 500 mg capsule 1,000 mg PO Q8H PRN PRNQty: 90 RF: 0 celecoxib 200 mg capsule 200 mg PO BID Qty: 60 RF: 0 Discharge Instructions Additional Instructions: Hip Bursa Discharge Instructions Activity: You may move and walk as tolerated but always use a walker until instructed otherwise - likely for a minimum of 2 weeks. You should try to take short walks a few times a day. You have no restrictions on movement or positioning, but do not try to force what you do. You will find some stiffness and weakness. Do not try to strengthen this too early, continue to practice walking. - Outpatient physical therapy can be helpful to help return you to a normal gait and improve your flexibility and strength. This can start around 2 weeks. For some patients, it?s not necessary. Usually this is determined at the time of discharge or at the first post-operative visit. Dressing: Keep the surgical dressing in place for at least one week. After the first week it may be removed and replace with light gauze and tape or nothing. It may get wet after 3 days but avoid soaking the dressing. If it gets wet, just lightly pat dry. Medications: - You should take Tylenol and an anti-inflammatory Celebrex as your primary pain control medications - You have been prescribed a stronger pain medication Hydrocodone for breakthrough pain, take as needed as prescribed. - If you have constipation you should take Colace or Miralax (both [id number]). It takes most people 3-4 days to have a bowel movement. Follow-up: 2 weeks Referrals: Abhi Espinal MD [ [facility] STAFF PHYSICIAN] - Equipment/Supplies: Walker Activity:: Activity as Tolerated Remove Dressings/Wound Care:: Do Not Remove Shower/Bathe:: Cover Diet:: As Tolerated Discharge Orders Discharge Orders: Discharge Order (Routine); Ordered 07/31/21 Ordered By: Nicky Lopez DS: Diagnosis Discharge Diagnosis (1) Trochanteric bursitis, left hip: Status: Acute
[2021-07-31] MEDS: Lactated Ringers 1,000 ML 80 ML IV (10:41)
--- NOTE | 2021-07-31 11:09 | W.ANESPRE ---
General Info Date of Service Date Performed: 07/31/21 Height: 5 ft 11 in Weight: 116.2 kg Body Mass Index (BMI): 35.7 Surgical Procedure: Operation Date: 07/31/21 12:25 Proposed Procedures Side Surgeon p Hip Excision Bony Fragment left lateral hip Left Abhi Espinal MD Meds Allergies and Home Medications Allergies Allergy/AdvReac Type Severity Reaction Status Date / Time ceftriaxone Allergy Severe ANAPHYLAXIS Unverified 07/31/21 10:23 Cephalosporins Allergy Severe Anaphylaxsi Unverified 07/31/21 10:23 s ciprofloxacin AdvReac Dizziness/L Unverified 07/31/21 10:23 ightheade meperidine HCl [From Demerol] AdvReac vomiting Unverified 07/31/21 10:23 morphine AdvReac vomiting Unverified 07/31/21 10:23 Home Medication Medication Instructions Recorded metformin 1,000 mg PO BID 04/07/14 vitamin E 400 unit PO DAILY 04/07/14 albuterol sulfate 2 puff INHALATION Q4H inhaler 10/16/14 fluoxetine [Prozac] 40 mg PO DAILY tab-cap 11/08/14 bisoprolol fumarate 10 mg PO DAILY #90 tab-cap 04/28/18 amoxicillin 500 mg tablet 2,000 mg PO .PROIR TO DENTAL tab 01/04/19 insulin detemir U-100 100 unit/mL 44 unit SC BID ml 01/04/19 (3 mL) subcutaneous pen levothyroxine 75 mcg tablet 150 mcg PO DAILY tab 01/04/19 lisinopril 5 mg PO DAILY 08/23/19 simvastatin 10 mg PO DAILY 06/20/20 cyanocobalamin (vitamin B-12) 1,000 mcg PO DAILY 06/28/20 meclizine 25 mg PO Q6H PRN 06/28/20 insulin aspart U-100 [Novolog 0 unit SUBCUT DAILY 09/04/20 Flexpen U-100 Insulin] sucralfate [Carafate] 1 g PO QACHS #120 tab 09/04/20 acetaminophen 1,000 mg PO Q8H PRN PRN #90 cap 10/02/20 aspirin 81 mg PO BID #60 tab 10/02/20 celecoxib 200 mg PO BID #60 cap 10/02/20 pantoprazole 40 mg PO DAILY #30 tab 10/02/20 cyclobenzaprine 5 mg tablet 5 mg PO BID PRN #10 tab 10/16/20 oxycodone 5 mg tablet 5 mg PO BID PRN #14 tab MDD 10mg 10/24/20 Current Visit Medications: Current Medications Generic Name Dose Route Start Last Admin Trade Name Brianne PRN Reason Stop Dose Admin Acetaminophen 650 mg 07/31/21 09:46 Acetaminophen 325 Mg Tab PO Q4H PRN PRN Hydrocodone Bitart/Acetaminophen 0 tab 07/31/21 09:46 Hydrocodone 5/Acetaminophen 325 Tab PO Q3H PRN PRN Pain Ringer's Solution 1,000 mls @ 80 mls/hr 07/31/21 06:00 07/31/21 10:41 IV 08/29/21 23:59 80 mls/hr INFUSION BRANDON Administration Clindamycin Phosphate/Dextrose 900 mg in 50 mls @ 50 mls/hr 07/31/21 06:00 Cleocin In D5w IVPB 07/31/21 23:59 PREOP BRANDON IV Miscellaneous Supplies 1 each 07/31/21 06:00 Iv Access IV 08/29/21 23:59 DIRECTED BRANDON Sodium Chloride 0 ml 07/31/21 06:00 Normal Saline Flush 10 Ml Syr IV 08/29/21 23:59 PRN PRN Sodium Chloride 0 ml 07/31/21 06:00 Normal Saline 10 Ml Vial IJ 08/29/21 23:59 DIRECTED PRN Sterile Water 0 ml 07/31/21 06:00 Water,Injection,Sterile 10 Ml Vial IJ 08/29/21 23:59 DIRECTED PRN PFSH Active Problems Active Problems: Problem Status Onset Code Trochanteric bursitis, left hip M70.62 Primary osteoarthritis of right hip M16.11 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 Internal derangement of left knee M23.92 Chest pain R07.9 Osteoarthritis of left knee M17.12 Left knee pain M25.562 Chronic low back pain M54.5, G89.29 Hypothyroidism E03.9 Asthma J45.909 Diabetic peripheral neuropathy E11.42 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/19/16 T84.53XA Essential tremor 11/21/14 G25.0 Medical History Active Problem List Trochanteric bursitis, left hip (Acute) Primary osteoarthritis of right hip (Acute) Chondromalacia patellae of left knee (Acute) Internal derangement of left knee (Acute) Chest pain (Acute) Osteoarthritis of left knee (Acute) Left knee pain (Acute) Chronic low back pain (Acute) Hypothyroidism (Chronic) Asthma (Chronic) Diabetic peripheral neuropathy (Acute) 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) Essential tremor (Acute 11/21/14) Medical History Arthralgia Back pain, acute Bradycardia Colon polyps Depression Diverticulosis DJD of right AC (acromioclavicular) joint Fatigue GERD (gastroesophageal reflux disease) Headache Cervical Hip pain, left History of tobacco use HTN (hypertension) Hypotension Infection of total right knee replacement Insect bite Lumbosacral neuritis Neck pain on left side Obesity Prolonged depression Psoriasis Radicular syndrome of lower limbs Resting tremor Right rotator cuff tear Injection under fluoroscopy: 11/04/18 Status post rotator cuff repair DOS: 01/25/2019 Septic arthritis of knee Septic joint Shoulder pain, left Shoulder pain, right Sleep apnea Trigeminy URI, acute Vertigo Vitamin B12 deficiency Surgical History Surgical History 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 Tobacco Smoking/Tobacco Use Status: Former Tobacco Use Alcohol Alcohol Intake: current Alcohol intake frequency: a few times a week Alcohol type: beer, wine and hard liquor Substance Use Substance use: Never Substance use type: does not use Vital Signs and Lab Results Vital Signs Most Recent Vital Signs in EMR: Most Recent Vital Signs Temp Pulse Resp BP Pulse Ox 36.6 C 60 16 122/73 99 07/31/21 10:10 07/31/21 10:10 07/31/21 10:10 07/31/21 10:10 07/31/21 10:10 Lab Results Blood Type / Crossmatch: No Data to Display Complete Blood Count: No Data to Display Complete Metabolic Panel: No Data to Display Liver Function Panel: No Data to Display Coagulation Panel: No Data to Display Cardiac Panel: No Data to Display Arterial Blood Gas: No Data to Display Venous Blood Gas: No Data to Display Pancreas Panel: No Data to Display Thyroid Panel: No Data to Display Infectious Disease: Coronavirus (COVID-19)(PCR) Negative (Negative) 07/29/21 10:06 07/29/21 Coronavirus 2019 Source Nasal/Nares 07/29/21 10:06 07/29/21 Blood Cultures: No Data to Display Toxicology Panel: No Data to Display Imaging and Studies Imaging and Studies EKG Summary: 08/26: sinus rhythm, prob LAE. Stress Test Summary: 08/26: max HR 46% for predicted age. non-diagnostic. LVEF 50%. Echocardiogram Summary: 08/26: LVEF 60%, trace/mild TR. mild MR. 12/23: no prefusion defects noted. LVEF 43%. Anesthesia Assessment and Plan Anesthesia History Personal History: No History of Anesthesia Complications Family History: No Family History of Anesthesia Complications Exercise Tolerance Exercise Tolerance: Metabolic Equivalents>4 Pertinent Negatives Pertinent Negatives: No Symptoms of GERD, No Major Cardiovascular Symptoms or Complaints, No Major Pulmonary Symptoms or Complaints and No History of CVA/TIA Cardiac & Pulmonary Exam Cardiac Exam: Normal S1/S2 Heart Sounds Pulmonary Exam: Clear Bilateral Breath Sounds Implantable Cardiac Device Does patient have a Pacemaker or an ICD?: No Airway Exam Known Difficult Airway: No Mallampati Class: 4 Mouth Opening: Normal (> 3cm) Thyromental Distance: Greater than 3 cm Neck Range of Motion: Full ROM Neck Circumference: Thick Teeth Condition: Generalized Poor Dentition Airway Comments: #12 broken ASA Classification ASA Score: ASA 3 Emergency Case?: No NPO Status NPO Status: NPO Clears >2 hours, Solids >8 hours Anesthesia Plan Resuscitation Status: Full Code Anesthesia Technique: General Anesthesia Airway Planned: Endotracheal Tube Monitors Used: Standard Monitors
[2021-07-31] MEDS: Bupivacaine 0.25% Pres-Free 30 ML VIAL (13:00)
--- NOTE | 2021-07-31 13:58 | W.ANESPOSTOP ---
Postoperative Evaluation Date, Time and Location Date Performed: 07/31/21 Time Performed: 13:58 Patient Location: Day Surgery Unit Vital Signs Most Recent Imported Vital Signs: Most Recent Vital Signs Temp Pulse Resp BP Pulse Ox 36.3 C L 64 14 106/53 L 94 07/31/21 13:53 07/31/21 13:53 07/31/21 13:53 07/31/21 13:53 07/31/21 13:53 Pain Score Most Recent Pain Score: Most Recent Pain Score Pain Level 0 07/31/21 13:53 Assessment Mental Status: Awake (Alert & Oriented to Patient Baseline) Airway and Respiratory Function: Patent airway with normal (patient baseline) respiratory exam Cardiovascular Function: Hemodynamically Stable Hydration Status: Adequately Hydrated Nausea & Vomiting: No Nausea or Vomiting Pain: Pt. Denies Any Pain Peripheral Nerve Block: Patient did not receive a nerve block
--- NOTE | 2021-07-31 16:15 | W.PM.OP ---
Date of service: 07/31/21 Time of Service: 13:25 Operative Note Operative Note DATE OF PROCEDURE: 07/31/21 PRE-OP DIAGNOSIS: Recalcitrant Trochanteric Bursitis with Dystrophic Calciication, LEFT Hip POST-OP DIAGNOSIS: same PROCEDURE: Open Debridement/Excision of LEFT Trochanteric Bursa and Iliotibial Band Tenotomy and Excision of superficial dystrophic calcification SURGEON: Abhi Espinal OXYGEN THERAPY TECHNICIAN: Nicky Lopez ANESTHESIA TYPE: General LMA/ETT Refer to Anesthesia Record ESTIMATED BLOOD LOSS: 20 PATHOLOGY: none sent TOURNIQUET TIME: 0 COMPLICATIONS: None Patient was transported to: PACU Patient's condition: stable Indications: Gal is a 71 year old who I have seen for recurrent symptoms of lateral hip pain. A diagnosis of trochanteric bursitis was made. Conservative treatment options were employed first. However, pain continued. He also had a palpable nodule within the soft tissues which was shown to be dystrophic calcifications on x-ray and CT. After failure of conservative treatment options, I recommended surgical intervention. I reviewed the technical details of the surgery. I reviewed the risk of the surgery to include bleeding, infection, pain, stiffness, damage to nerves and vessels, damage to muscles and tendons, blood clot. Despite these risks, the patient desired to proceed. Findings: Sitting on top of the proiminence of ther greater trochanter and superficial to the IT band, there was a large 15mm nodule of calcium which was removed. The iliotibial band was significantly tight. Iliotibial band was incised to lengthen. The bursa was inflamed and excised and debrided. Procedure Description: Gal was greeted in the preoperative holding area. The identity was confirmed with the correct site and side. The consent was reviewed with the patient and signed. History and physical was updated. The patient was taken back to the operating room. A general anesthetic was administered. The patient was then positioned into the right lateral decubitus position for access to the left hip. All bony prominences well-padded. The left hip was prepped with ChloraPrep and draped in a standard fashion. Prophylactic antibiotics in the form of Clindamycin were administered. A timeout was performed for safe surgery. An approximately 8 cm incision was made overlying the posterior lateral hip. This was centered over the vastus ridge and the palpable mass extending just proximal to the tip of the greater trochanter. The skin was incised sharply. Bleeding was stopped with electrocautery. The iliotibial band was identified and cleared for better visualization. It was noted to be quite taut against the lateral femur. The iliotibial band was then incised transversely to create a iliotibial band tenotomy thus lengthening the iliotibial band by approximately 15 mm or so. The muscular attachments on either side were left in place. The deep bursa was then identified and resected with a rongeur. There was some prominence to the greater trochanter and these areas of prominence were smoothed down with a rongeur and a rasp. The deep structures were then thoroughly irrigated. The deep tissues were injected with a mixture of 0.25% bupivacaine along with 1% lidocaine with epinephrine. The wound was thoroughly irrigated. The deep tissues were closed with 0 Vicryl followed by 2-0 Vicryl. The skin was closed with a 4-0 Monocryl in a running subcuticular fashion which was reinforced with skin glue and Steri-Strips. The wound was dressed with Mepilex silver dressing. At the end of the case all counts are correct. The patient was transitioned back into the supine position. There were no notable complications. The patient was transferred to the PACU in stable condition.
== END 2021-07-31 15:12 | disposition home or self-care (01) ==
LOC: SUR 10:03
PROVIDERS: PCP Family Medicine; Visit Provider Student in an Organized Health Care Education/Training Program
PROC: (CPT 27062; principal; 2021-07-31 12:15)
DX: M70.62 Trochanteric bursitis, left hip (principal); M76.32 Iliotibial band syndrome, left leg
CPT/HCPCS: 27062; 27305; J1100; J1885; J2405; J2704

== ENCOUNTER → 2021-08-12 13:17 | Outpatient (BNVA) | payer MEDICARE, OTHER, SELFPAY | PROVIDERS: PCP Family Medicine; Referring Provider Family Medicine | DX: Z47.89 Encounter for other orthopedic aftercare (principal); M70.62 Trochanteric bursitis, left hip ==

== ENCOUNTER 2021-08-28 16:47 | Outpatient (REF) | payer MEDICARE, OTHER, SELFPAY ==
[2021-08-29 17:22] LABS: Rheumatoid Factor <8.6 IU/mL (<12.0)
[2021-08-30 09:32] LABS: Cyclic Citrullinated Peptide <2.5 U/mL (<5.0)
[2021-08-30 14:21] LABS: ANA Interpretation Positive (Negative)
== END 2021-08-28 16:48 | disposition home or self-care (01) ==
LOC: NCHCN 16:47
PROVIDERS: PCP Family Medicine; Visit Provider Nurse Practitioner Family
DX: R89.9 Unspecified abnormal finding in specimens from other organs, systems and tissues (principal); M25.59 Pain in other specified joint; R13.10 Dysphagia, unspecified
CPT/HCPCS: 86200; 86038; 86431

== ENCOUNTER → 2021-09-11 14:21 | Outpatient (BNVA) | payer MEDICARE, OTHER, SELFPAY | PROVIDERS: PCP Family Medicine; Referring Provider Family Medicine | DX: Z47.89 Encounter for other orthopedic aftercare (principal); M96.842 Postprocedural seroma of a musculoskeletal structure following a musculoskeletal system procedure; M70.62 Trochanteric bursitis, left hip ==

== ENCOUNTER 2021-09-23 15:49 | Outpatient (REF) | payer MEDICARE, OTHER, SELFPAY ==
--- NOTE | 2021-09-23 15:30 | TONSIL_PTH ---
PATIENT: Arianna Arevalo LOC: [facility] U#:[id number] AGE/SX: 71/M ROOM: RE09/23/[address]: Yemi Quevedo MD : [id number] BED: DIS: 09/23/2021 SPEC #: [id number] RECD: 09/23/21 18:08 STATUS: ALFREDITO RESilvestre #: [id number] ALBERTO: 09/23/21 15:[address]: Yemi Quevedo DEPT: Surgical Specimen RECD BY: Kiesha Parkinson ENTERED: 09/23/21 18:10 SP TYPE: TONSIL OTHR DR: Beatriz Cotton V Tissues: 1 - TONSIL AGE 17 & OVER Procedures: GROSS AND MICRO LEVEL 4 IMMUNOPEROXIDASE STAIN Single Probe In Situ Hybridization ESTROGEN/PROGESTERONE RECEPTOR IPEX STAIN Comments: [id number]
== END 2021-09-23 15:50 | disposition home or self-care (01) ==
LOC: LBN 15:49
PROVIDERS: PCP Family Medicine; Visit Provider Otolaryngology
DX: C09.9 Malignant neoplasm of tonsil, unspecified (principal); B97.7 Papillomavirus as the cause of diseases classified elsewhere
CPT/HCPCS: 88305; 88368; 88304; 88360; 88361

== ENCOUNTER 2021-09-25 02:07 | Outpatient (CLI) | payer MEDICARE, OTHER, SELFPAY ==
[2021-09-25 08:35] LABS: C-Reactive Protein 0.28 mg/dL (0.0-0.3)
[2021-09-25 11:18] LABS: ESR 43 mm/hr (0-20)
[2021-09-26 13:23] LABS: dsDNA Ab, IgG 13.4 IU/mL (<30.0)
[2021-09-26 14:19] LABS: RNP Ab, IgG 1.7 Units (<20.0); SS-A Antibody 87.1 Units (<20.0); SS-B (La) Ab, IgG 10.5 Units (<20.0); Sm (Smith) Ab, IgG 1.6 Units (<20.0)
== END 2021-09-25 02:08 | disposition home or self-care (01) ==
LOC: LBO 02:07
PROVIDERS: PCP Family Medicine; Visit Provider Family Medicine
DX: R76.0 Raised antibody titer (principal)
CPT/HCPCS: 36415; 85652; 86140; 86225; 86235

== ENCOUNTER 2021-09-26 01:09 | Outpatient (CLI) | payer MEDICARE, OTHER, SELFPAY ==
--- NOTE | 2021-09-26 07:15 | DI.CT_ITS ---
Exam(s) CT NECK W EXAM: CT NECK W CLINICAL HISTORY: rt tonsillar mass with cervical lymphadenopathy,r59.0,j35.8. TECHNIQUE: Imaging Protocol: Axial CT angiography was performed with multi-slice acquisition and mu lti-planar and/or 3D reconstructions. CONTRAST MATERIAL: Intravenous: Omnipaque 350 Contrast volume:structured data in ml COMPARISON: No exams were available for comparison FINDINGS: Nasopharynx: Unremarkable. No mass. Oropharynx/hypopharynx: There is a mass in the region the right tonsil which contains some air, possi regan related to recent biopsy. The asymmetric density extends down into the right-side of the hypopha rynx towards the vallecula. This density reaches the right side of the epiglottis-upper right vallec shasta. There is no ring enhancing finding to suggest an abscess. Left vallecular is unremarkable as i s the free edge of the epiglottis. Aryepiglottic folds appear symmetrical. There are no masses at l evel of the vocal cords and subglottic airway. Salivary glands: Parotid glands and submandibular glands appear unremarkable. Thyroid gland: Normal size but there is a nodule in the right lobe measuring approximately 1.4 x 0.10 cm. Lymph nodes: There is a significantly enlarged lymph node in the right-side of the neck just anterior to the sternocleidomastoid muscle and lateral to the carotid artery and internal jugular vein.. Thi s enlarged node measures 2.5 cm wide by 1.8 cm AP by 2.7 cm. It contains a small 4 x 3 millimeter ca lcification in its superior aspect. Other slightly smaller lymph nodes are also noted in the right-s adam of the neck. There is no adenopathy in the supraclavicular region. Visualized upper lung james: No ominous nodules evident Visualized paranasal sinuses: Maxillary sinuses are clear as are the ethmoidal air cells. Partially visualized frontal sinuses are clear. Mastoid air cells are clear. IMPRESSION: 1. Is a prominent indistinct mass in the right-side of the oropharynx which appears to extend down th e right-side of the hypopharynx to the upper hip see vallecular level. 2. There is lymphadenopathy in the right-side of the neck, with the largest lymph node measuring 25 x 18 x 27 millimeters and located just anterior to the sternocleidomastoid muscle and lateral to the r ight internal jugular vein and right common carotid artery. There is no supraclavicular adenopathy. RADIATION DOSE DELIVERED: 604.8mGy.cm Total DLP DATA REPOSITORY: All CT scans at this facility are submitted to the National Radiology Data Registry (NRDR) Dose Index Registry (DIR) with the [employer] (ACR). RADIATION OPTIMIZATION: All CT scans at this facility use at least one of these dose optimization te chniques: automated exposure control; mA and/or kV adjustment per patient size (includes targeted exa ms where dose is matched to clinical indication); or iterative reconstruction.
[2021-09-26 12:32] LABS: CREATININE 0.9 mg/dL (0.70-1.30)
[2021-09-26] MEDS: Omnipaque 350 MG/ML 100 ML BTL IJ (13:25)
== END 2021-09-26 01:29 ==
PROVIDERS: PCP Family Medicine; Visit Provider Otolaryngology
DX: J35.8 Other chronic diseases of tonsils and adenoids (principal); R59.0 Localized enlarged lymph nodes; E04.1 Nontoxic single thyroid nodule; D37.05 Neoplasm of uncertain behavior of pharynx; Z01.812 Encounter for preprocedural laboratory examination
CPT/HCPCS: 70491; 82565; J3490

== ENCOUNTER → 2021-09-30 14:25 | Outpatient (BNVA) | payer MEDICARE, OTHER, SELFPAY | PROVIDERS: PCP Family Medicine | DX: Z47.89 Encounter for other orthopedic aftercare (principal); M70.62 Trochanteric bursitis, left hip; M96.842 Postprocedural seroma of a musculoskeletal structure following a musculoskeletal system procedure ==

== ENCOUNTER → 2021-10-11 10:38 | Outpatient (BNVA) | payer MEDICARE, OTHER, SELFPAY | PROVIDERS: PCP Family Medicine; Referring Provider Family Medicine; Visit Provider Student in an Organized Health Care Education/Training Program | DX: Z47.89 Encounter for other orthopedic aftercare (principal); M96.842 Postprocedural seroma of a musculoskeletal structure following a musculoskeletal system procedure ==

== ENCOUNTER 2021-10-29 03:59 | Outpatient (CLI) | payer MEDICARE, OTHER, SELFPAY ==
[2021-10-29 10:50] LABS: CREATININE 0.9 mg/dL (0.70-1.30)
== END 2021-10-29 04:00 | disposition home or self-care (01) ==
LOC: LBO 03:59
PROVIDERS: PCP Family Medicine; Visit Provider Preventive Medicine Undersea and Hyperbaric Medicine
DX: C09.9 Malignant neoplasm of tonsil, unspecified (principal)
CPT/HCPCS: 36415; 82565

== ENCOUNTER 2021-11-04 02:11 | Outpatient (CLI) | payer MEDICARE, OTHER, SELFPAY ==
[2021-11-04 10:38] LABS: Source Nasal/Nares
[2021-11-04 16:21] LABS: COVID-19 PCR Negative (Negative)
== END 2021-11-04 02:12 | disposition home or self-care (01) ==
LOC: LBO 02:11
PROVIDERS: PCP Family Medicine; Visit Provider Family Medicine
DX: Z20.822 Contact with and (suspected) exposure to COVID-19 (principal); Z01.818 Encounter for other preprocedural examination
CPT/HCPCS: 87635; U0005

== ENCOUNTER → 2021-11-05 00:23 | Outpatient (CLI) | payer MEDICARE, OTHER, SELFPAY ==
--- NOTE | 2021-11-05 10:30 | DI.RAD_ITS ---
Exam(s) RF MODIFIED SPEECH BA SWALLOW TECHNIQUE: Modified barium swallow was performed in conjunction with speech pathology. CONTRAST MATERIAL: Oral barium contrast was administered. COMPARISON: No exams were available for comparison FINDINGS: Note that this is not a dedicated esophagram, distal esophagus not evaluated. There is no evidence of aspiration of thick or thin liquids, barium coated apple sauce or cookies. P enetration with thin liquids was observed during the examination. Speech pathology report to follow. IMPRESSION: No evidence of aspiration. Penetration with thin liquids did occur during the examination. RADIATION DOSE DELIVERED: sarah Reilly= mGy
--- NOTE | 2021-11-05 13:00 | ST.MBS_ITS ---
Date of Service Date of service: 11/05/21 Time of Service: 13:00 Modified Barium Swallow Study Findings: Speech Language Pathology Report ? Patient referred for MBSS from Dr Reyez ([facility]) given recent dysphagia in setting of tonsilar cancer, soon to start concurrent chemo and radiotherapy ? 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 Mass was identified and biopsied by Dr. Quevedo after patient presented with 1+ month of progressive dysphagia to pills as well as voice changes. Prophylactic PEG tube placed on 10/31/2021 along with port placement. He was seen for initial clinical swallow evaluation and provision of education on 10/30/2021 by AIR SAMPLER Berna Carter through [facility]. ? PMHx: DM2, asthma, essential tremor, depression, GERD, bradycardia. ? ? Surgical History: Left total knee replacement (failed) - 2018 Arthroscopic rotator cuff repair ( R ) - 2018 Total hip replacement. PEG tube placement 10/31/21 ? Previous Imaging: CT Scan 09/26/2021: IMPRESSION: 1. Is a prominent indistinct mass in the right-side of the oropharynx which appears to extend down the right-side of the hypopharynx to the upper hip see vallecular level.? 2. There is lymphadenopathy in the right-side of the neck, with the largest lymph node measuring 25 x 18 x 27 millimeters and located just anterior to the sternocleidomastoid muscle and lateral to the right internal jugular vein and right common carotid artery. There is no supraclavicular adenopathy. ? SUBJECTIVE: Gal arrived for this visit unaccompanied, in good spirits. He missed his original appointment time this morning due to scheduling confusion, but was able to come for an alternative appointment time offered this afternoon. Gal describes dysphagia primarily to pills, though he does note that this has gotten better since he had his biopsy, stating it made more room for stuff to pass through. He initially denies any difficulties or s/sx aspiration with liquids or solids, but later describes having occasional coughing fits after he is finished with a meal. He denies overt reflux or heartburn. He does endorse some voice changes since original onset of dysphagia symptoms in July. He notes that his daughter was the first one to notice his swallowing difficulties, even before he did, and notes that over the course of a month they got worse and worse. Denies odynophagia at this time. He does report some pain associated with recent PEG-tub placement, particularly related to [id number] transfers. ? OBJECTIVE: Videofluoroscopic Swallow Evaluation (VFSE/MBSS) was conducted in the lateral projection by Speech-Language Pathologist, in collaboration with Radiologist, to evaluate oropharyngeal swallow function. ? Anatomic view under fluoroscopy: WFL ? PO barium contrast trials: Oral barium water soluble contrast was administered as follows: IDDSI Level 0 Varibar thin liquid (40% w/v) IDDSI Level 4 Varibar pudding/pureed/extremely thick (40% w/v) IDDSI Level 7 Regular Solid: 1/2 kelly cracker coated in 3 mL Varibar pudding; 13 mm barium tablet ? ? PHYSIOLOGIC FINDINGS ? Oral Phase ? 1 Lip Closure: 0-No labial escape ? 2 Tongue Control: 0- Cohesive bolus between tongue to palatal seal ? 3 Bolus Preparation/Mastication: 0- Timely and efficient chewing/mashing 4 Bolus Transport/Lingual Motion: 1- Delayed initiation of tongue motion at times: 3- Repetitive/disorganized tongue motion (primarily with solids, tablet) ? 5 Oral residue: 2- Residue collection on oral structures Location: tongue ? 6 Initiation of pharyngeal swallow:? 1- Bolus head in valleculae - regular solids 2- Bolus head at posterior laryngeal surface of epiglottis - puree 3- Bolus head in pyriform sinus - thin liquid Pharyngeal Phase 7 Velar Elevation: 0- No bolus between soft palate and pharyngeal wall 8 Laryngeal Elevation:? 1- Partial superior movement of thyroid cartilage with partial approximation of arytenoids to epiglottic petiole ? 9 Anterior Hyoid Excursion: 1- Partial anterior movement ? 10 Epiglottic Movement:? 1- Partial? inversion ? 11 Laryngeal Vestibule Closure: 0- Complete; no air/contrast in laryngeal vestibule (HOWEVER, noting narrow column of contrast (flash penetration) during initial superior thyroid movement, cleared at height of swallow) 1- Incomplete; narrow column of air/contrast in laryngeal vestibule - large volume/consecutive sips liquid only Penetration observed occurs during initial swallow onset from current bolus ? 12 Pharyngeal Stripping Wave:? 1- Present; diminished 13 Pharyngeal Contraction: DNT; lack of AP view ? 14 PES/UES Opening:? 0- Complete distension and complete duration; no obstruction of flow ? 15 Tongue Base Retraction: 1- Trace column of contrast between tongue base and posterior pharyngeal wall ? 16 Pharyngeal residue:? 1- Trace residue within or on pharyngeal structures - majority of trials 2- Collection of residue within or on pharyngeal structures - BARIUM TABLET Location: valleculae, tongue base ? [place] Pharyngeal Residue Severity Rating Scale (YPRS) (Suyapa, et al, 2015) Vallecula Residue Severity II Trace 1-5% Trace coating of the mucosa Pyriform Sinus Residue Severity I None 0% No residue ? Esophageal Phase ? 17 Esophageal Clearance Upright Position: DNT; lack of AP view NOTE: This study was performed for interpretation only of the oropharyngeal and pharyngoesophageal domains of swallowing. It is not intended to diagnose any other radiologic abnormalities or substitute for a formal esophagram study. ? Overall 8-Point Penetration-Aspiration Scale (PAS) (Lori, et al, 1996) 1 - No material enters the airway. 2 - Material enters the airway, remains above the vocal folds, and is ejected? from the airway. 3 - Material enters the airway, remains above the vocal folds, and is not? ejected from the airway. 4 - Material enters the airway, contacts the vocal folds, and is ejected from the? airway. 5 - Material enters the airway, contacts the vocal folds, and is not ejected from? the airway. 6 - Material enters the airway, passes below the vocal folds, and is ejected into? the larynx or out of the airway. 7 - Material enters the airway, passes below the vocal folds, and is not ejected? from the trachea despite effort. 8 - Material enters the airway, passes below the vocal folds, and no effort is? made to eject. Results: Large volume thin liquids: 2 All other trials: 1 Clinical Indicator(s) of Prandial/Postprandial Aspiration: N/A Note, that when attempting strategies to clear barium tablet from valleculae, patient attempted R head turn with single sip thin liquid, with elicited cough response. Given no contrast was presented, unable to confirm/deny for occurance of penetration or aspiration. DIGEST Scale Rating (O'Aden, et al, 1999) Score: Safety Grade = 1 (note, silent penetration above TVF) Efficiency Grade = 0 Overall = 1, Mild Pharyngeal Impairment (0=No Impairment, 1=Mild, 2=Moderate, 3=Severe, 4=Life Threatening) The Dynamic Imaging Grade of Swallowing Toxicity (DIGEST) Score represents a set of structured criteria primarily validated for head and neck cancer patients to grade the interaction of safety, efficiency, and overall impairment of the pharyngeal swallow, meant to assist in prioritization of targets for dysphagia treatment planning. (Esther, et al. Cancer. 2017;123(1):62-70) Note: - Above score represents swallowing events without application of compensatory techniques Trialed Compensatory Swallow Strategies & Outcome: ? Postures Head Turn/Rotation to R - unsuccessful (elicited cough response) Maneuvers 3-second Preparatory Set - successful Secondary saliva swallow x2- successful to clear oral residue Bolus Modifications Delivery/Alternating Consistencies - Wash with [] [successful, unsuccessful] Reduced Volume - successful (liquids) Reduced Rate of Intake - [successful, unsuccessful] Increased Viscosity - delivery of liquid as well as dense consistency (puree, regular) to assist with stubborn vallecular stasis of barium tablet - unsuccessful. Ultimately, the patient was able to clear with presumed saliva swallow when not under fluoroscopy. Dysphagia Outcome and Severity Scale (LIDIA) LEVEL 7 - Full PO: normal diet - Normal in all situations LEVEL 6 - Full PO: normal diet - Within functional limits/modified independence LEVEL 5 - Full PO: modified diet and/or independence - Mild dysphagia; Distant supervision, may need 1 diet consistency restricted LEVEL 4 - Full PO: modified diet and/or independence - Mild-moderate dysphagia; Intermittent supervision/cueing, 1 or 2 consistencies restricted LEVEL 3 - Full PO: modified diet and/or independence - Moderate dysphagia; Total assist, supervision, or strategies 2 or more diet consistencies restricted LEVEL 2 - Nonoral nutrition necessary - Moderate-severe dysphagia; Maximum assistance or use of strategies with partial PO only (tolerates at least 1 consistency safely with total use of strategies) LEVEL 1 - Nonoral nutrition necessary - Severe dysphagia; NPO, unable to tolerate any PO safely ? IMPRESSIONS: Mild oropharyngeal dysphagia, likely to become chronic. Impact of delayed/disorganized A/P transit on efficiency and premature posterior spillage, as well as reduced pharyngeal motility (hyoid, epiglottis) altering bolus flow resulting in flash penetration. Possible contributing etiologies include changes caused by tonsil mass, biopsy procedure, GERD, presbyphagia. Swallow safety is mildly impaired; swallow efficiency is largely preserved in the pharyngeal phase, but noted mild inefficiency due to slowed lingual transit and oral residue requiring several secondary swallows. Patient appears to be at low risk for potential aspiration PNA, pulmonary compromise and low risk for malnutrition, low risk for dehydration at this time, though note that these risks may increase secondary to short and/or extermination supervisor effects of chemo/radiation therapy. Diet modification is not yet indicated. Swallow prognosis is fair given upcoming radiation treatment and pending patient/caregiver training/adherence to prophylactic risk management program as outlined. Patient appears to be a good candidate for behavioral swallow rehabilitation. ? PLAN: Diet recommendation: IDDSI Level: 7-Regular Solids 0-Thin Liquids Please see further details at www.iddsi.org Diet texture modification is per patient's preference; please adjust diet textures at patient's discretion & collaboration with care team. Medication/Pills: Try taking one at a time with pudding to prevent premature spillage of tablet in liquid, which causes stasis at valleculae. Perform secondary swallows to clear residue. ? Risk Management: Behavioral reflux precautions, including upright position during + 90 mins after meals. Small sips, approx 10 mL Multiple swallows per bolus ([1-3]) to encourage clearance of oral stasis/residue. Control risk factors for aspiration pneumonia via (a) thorough oral hygiene & (b) maintaining physical mobility as tolerated With liquids/medication: Do not tilt head back, swallow hard & fast. Recommend trial puree/pudding bolus as discussed. ? Specialist referrals: N/A - Patient also followed by ENT, RD, Oncology. Ancillary tests: n/a ? Therapy: Patient to follow up with treating clinician through [facility]. May consider the following: - Review results of this exam and risk management strategies with rationale - Standard prophylactic exercises for head/neck cancer - Addition of exercises to increase anterior hyoid excursion ? Goal: Defer to treating clinician at [facility] ? Follow-up exam: 6 months s/p completion of radiation therapy. ? Thank you for allowing me to take part in this patient's care. Please feel free to contact me with any questions/concerns. ? Nicky Brewster M.S., CCC-AIR SAMPLER Speech Language Pathologist [phone] Coding CPT Codes MOTION FLUOROSCOPY/SWALLOW - [id number] ([id number])
[2021-11-05] MEDS: Barium Sulfate 40% W/V 240 ML BTL 70 ML PO (13:38)
[2021-11-05] MEDS: Barium Sulfate 81% w/w for Oral Suspension 148 GM BTL 80 GM PO (13:39)
[2021-11-05] MEDS: Barium Sulfate Oral Paste 40% W/V 230 ML TUBE 13 ML PO (13:39)
[2021-11-05] MEDS: Barium Sulfate 700 MG TAB PO (13:40)
== END ==
PROVIDERS: PCP Family Medicine; Visit Provider Preventive Medicine Undersea and Hyperbaric Medicine
DX: C09.9 Malignant neoplasm of tonsil, unspecified (principal)
CPT/HCPCS: 92611; 92526; 74221

== ENCOUNTER 2021-12-02 02:20 | Outpatient (RCR) | payer MEDICARE, OTHER, SELFPAY ==
[2021-11-11] MEDS: Heparin 500 UNITS/5 ML SYRINGE IV (13:03)
[2021-11-11] MEDS: Normal Saline Flush 10 ML SYR IVP (13:03)
[2021-11-11 13:25] LABS: Abs Immature Grans 0.05 10^3/uL (0.0-0.06); Absolute Eosinophil Count 0.29 10^3/uL (0.0-0.7); Absolute Lymphocyte Count 1.54 10^3/uL (1.2-3.4); Absolute Monocyte Count 0.99 10^3/uL (0.1-0.8); Absolute Neutrophil Count 8.98 10^3/uL (1.2-6.7); Basophils % 0.3; Eosinophils % 2.4; HCT 42.2 % (40.0-50.0); HGB 13.1 g/dL (13.5-17.5); Immature Grans % 0.4; MCH 29.7 pg (27.0-33.0); MCV 95.7 fL (80-95); MPV 9.7 fL (8.0-11.0); Monocytes % 8.3; Neutrophils % 75.6; Nucleated RBC 0 %; Platelet Count 418 10^3/uL (130-400); RBC 4.41 10^6/uL (4.36-5.78); RDW 13.8 % (11.8-14.1); RDW-SD 49.4 fL; WBC 11.88 10^3/uL (4.4-10.8)
[2021-11-11 13:27] LABS: Absolute Basophil Count 0.04 10^3/uL (0.0-0.2)
[2021-11-11 13:57] LABS: ALT 15 U/L (16-63); AST 17 U/L (15-37); Albumin 3.2 g/dL (3.4-5.0); Alkaline Phosphatase 65 U/L (46-116); Anion Gap 13.3 mmol/L (3-11); BUN 28 mg/dL (7-18); Bilirubin, Total 0.3 mg/dL (0.2-1.0); CO2 24.7 mmol/L (21.0-32.0); CREATININE 1.2 mg/dL (0.70-1.30); Calcium 9.1 mg/dL (8.5-10.1); Chloride 103 mmol/L (98-107); Estimated GFR 59.51 (mL/min/1.73m2); Glucose 170 mg/dL (74-106); Magnesium 1.8 mg/dL (1.8-2.4); Sodium 141 mmol/L (136-145); Total Protein 8.2 g/dL (6.4-8.2)
[2021-11-18] MEDS: Normal Saline Flush 10 ML SYR IVP (08:01)
[2021-11-18 08:24] LABS: Abs Immature Grans 0.09 10^3/uL (0.0-0.06); Absolute Basophil Count 0.04 10^3/uL (0.0-0.2); Absolute Lymphocyte Count 1.38 10^3/uL (1.2-3.4); Absolute Monocyte Count 0.66 10^3/uL (0.1-0.8); Absolute Neutrophil Count 6.79 10^3/uL (1.2-6.7); Basophils % 0.4; Eosinophils % 2.2; HCT 42.3 % (40.0-50.0); Lymphocytes % 15.1; MCH 29.8 pg (27.0-33.0); MCHC 30.7 % (32.0-36.0); MPV 9.7 fL (8.0-11.0); Monocytes % 7.2; Neutrophils % 74.1; Nucleated RBC 0 %; Platelet Count 481 10^3/uL (130-400); RBC 4.36 10^6/uL (4.36-5.78); RDW 13.6 % (11.8-14.1); RDW-SD 48.5 fL; WBC 9.16 10^3/uL (4.4-10.8)
[2021-11-18 10:00] LABS: ALT 29 U/L (16-63); AST 17 U/L (15-37); Albumin 3.4 g/dL (3.4-5.0); Alkaline Phosphatase 49 U/L (46-116); BUN 22 mg/dL (7-18); Bilirubin, Total 0.3 mg/dL (0.2-1.0); CREATININE 1.2 mg/dL (0.70-1.30); Chloride 103 mmol/L (98-107); Estimated GFR 59.51 (mL/min/1.73m2); Glucose 188 mg/dL (74-106); Magnesium 1.1 mg/dL (1.8-2.4); Potassium 4.2 mmol/L (3.5-5.1); Sodium 140 mmol/L (136-145); Total Protein 7.9 g/dL (6.4-8.2)
[2021-11-25] MEDS: Normal Saline Flush 10 ML SYR IVP (07:30)
[2021-11-25 07:31] LABS: Abs Immature Grans 0.02 10^3/uL (0.0-0.06); Absolute Basophil Count 0.03 10^3/uL (0.0-0.2); Absolute Eosinophil Count 0.11 10^3/uL (0.0-0.7); Absolute Lymphocyte Count 0.86 10^3/uL (1.2-3.4); Absolute Monocyte Count 0.91 10^3/uL (0.1-0.8); Absolute Neutrophil Count 6.56 10^3/uL (1.2-6.7); Basophils % 0.4; Eosinophils % 1.3; HCT 43.4 % (40.0-50.0); HGB 13.2 g/dL (13.5-17.5); Immature Grans % 0.2; Lymphocytes % 10.1; MCH 29.4 pg (27.0-33.0); MCHC 30.4 % (32.0-36.0); MCV 96.7 fL (80-95); MPV 9.9 fL (8.0-11.0); Monocytes % 10.7; Neutrophils % 77.3; Nucleated RBC 0 %; Platelet Count 329 10^3/uL (130-400); RBC 4.49 10^6/uL (4.36-5.78); RDW 14.3 % (11.8-14.1); WBC 8.49 10^3/uL (4.4-10.8)
[2021-11-25 07:51] LABS: ALT 25 U/L (16-63); AST 17 U/L (15-37); Albumin 3.6 g/dL (3.4-5.0); Alkaline Phosphatase 54 U/L (46-116); Anion Gap 6.4 mmol/L (3-11); BUN 42 mg/dL (7-18); Bilirubin, Total 0.6 mg/dL (0.2-1.0); CO2 29.6 mmol/L (21.0-32.0); CREATININE 1.5 mg/dL (0.70-1.30); Calcium 9.2 mg/dL (8.5-10.1); Chloride 102 mmol/L (98-107); Glucose 94 mg/dL (74-106); Potassium 4.3 mmol/L (3.5-5.1); Sodium 138 mmol/L (136-145); Total Protein 8.1 g/dL (6.4-8.2)
[2021-12-02] MEDS: Normal Saline Flush 10 ML SYR IVP (10:12)
[2021-12-02 10:20] LABS: Abs Immature Grans 0.02 10^3/uL (0.0-0.06); Absolute Basophil Count 0.02 10^3/uL (0.0-0.2); Absolute Eosinophil Count 0.09 10^3/uL (0.0-0.7); Absolute Lymphocyte Count 0.47 10^3/uL (1.2-3.4); Absolute Monocyte Count 0.49 10^3/uL (0.1-0.8); Absolute Neutrophil Count 4.73 10^3/uL (1.2-6.7); Basophils % 0.3; Eosinophils % 1.5; HCT 41.8 % (40.0-50.0); HGB 12.7 g/dL (13.5-17.5); Immature Grans % 0.3; Lymphocytes % 8.1; MCH 29.7 pg (27.0-33.0); MCHC 30.4 % (32.0-36.0); MCV 97.7 fL (80-95); MPV 9.6 fL (8.0-11.0); Monocytes % 8.4; Neutrophils % 81.4; Nucleated RBC 0 %; Platelet Count 272 10^3/uL (130-400); RBC 4.28 10^6/uL (4.36-5.78); RDW 14.6 % (11.8-14.1); RDW-SD 51.4 fL; WBC 5.82 10^3/uL (4.4-10.8)
[2021-12-02 10:45] LABS: ALT 21 U/L (16-63); AST 13 U/L (15-37); Albumin 3.5 g/dL (3.4-5.0); Alkaline Phosphatase 55 U/L (46-116); Anion Gap 7.5 mmol/L (3-11); BUN 30 mg/dL (7-18); Bilirubin, Total 0.4 mg/dL (0.2-1.0); CO2 27.5 mmol/L (21.0-32.0); CREATININE 1.3 mg/dL (0.70-1.30); Calcium 9.1 mg/dL (8.5-10.1); Chloride 103 mmol/L (98-107); Estimated GFR 54.26 (mL/min/1.73m2); Glucose 137 mg/dL (74-106); Magnesium 1.7 mg/dL (1.8-2.4); Potassium 4.6 mmol/L (3.5-5.1); Sodium 138 mmol/L (136-145); Total Protein 7.7 g/dL (6.4-8.2)
== END 2021-12-05 23:59 | disposition home or self-care (01) ==
LOC: INF 02:20
PROVIDERS: PCP Family Medicine; Visit Provider Internal Medicine Hematology & Oncology
DX: C09.9 Malignant neoplasm of tonsil, unspecified (principal); Z45.2 Encounter for adjustment and management of vascular access device
CPT/HCPCS: 36591; 80053; 83735; 85025

== ENCOUNTER 2021-12-30 04:19 | Outpatient (RCR) | payer MEDICARE, OTHER, SELFPAY ==
[2021-12-09] MEDS: Normal Saline Flush 10 ML SYR IVP (09:29)
[2021-12-09 09:38] LABS: Abs Immature Grans 0.01 10^3/uL (0.0-0.06); Absolute Basophil Count 0.01 10^3/uL (0.0-0.2); Absolute Eosinophil Count 0.11 10^3/uL (0.0-0.7); Absolute Monocyte Count 0.42 10^3/uL (0.1-0.8); Absolute Neutrophil Count 3.36 10^3/uL (1.2-6.7); Basophils % 0.2; Eosinophils % 2.6; HCT 42.3 % (40.0-50.0); HGB 13.2 g/dL (13.5-17.5); Immature Grans % 0.2; Lymphocytes % 7.1; MCH 29.7 pg (27.0-33.0); MCHC 31.2 % (32.0-36.0); MCV 95.3 fL (80-95); MPV 9.5 fL (8.0-11.0); Neutrophils % 79.9; Nucleated RBC 0 %; Platelet Count 216 10^3/uL (130-400); RBC 4.44 10^6/uL (4.36-5.78); RDW 14.9 % (11.8-14.1); RDW-SD 50.7 fL; WBC 4.21 10^3/uL (4.4-10.8)
[2021-12-09 09:58] LABS: ALT 29 U/L (16-63); AST 21 U/L (15-37); Albumin 3.8 g/dL (3.4-5.0); Alkaline Phosphatase 58 U/L (46-116); Anion Gap 9.3 mmol/L (3-11); BUN 25 mg/dL (7-18); Bilirubin, Total 0.6 mg/dL (0.2-1.0); CO2 27.7 mmol/L (21.0-32.0); CREATININE 1.4 mg/dL (0.70-1.30); Calcium 9.1 mg/dL (8.5-10.1); Chloride 99 mmol/L (98-107); Estimated GFR 49.82 (mL/min/1.73m2); Glucose 129 mg/dL (74-106); Magnesium 1.3 mg/dL (1.8-2.4); Potassium 4.2 mmol/L (3.5-5.1); Sodium 136 mmol/L (136-145); Total Protein 8.1 g/dL (6.4-8.2)
[2021-12-16] MEDS: Normal Saline Flush 10 ML SYR IVP (10:15)
[2021-12-16 10:18] LABS: Abs Immature Grans 0.02 10^3/uL (0.0-0.06); Absolute Basophil Count 0.02 10^3/uL (0.0-0.2); Absolute Eosinophil Count 0.05 10^3/uL (0.0-0.7); Absolute Lymphocyte Count 0.27 10^3/uL (1.2-3.4); Absolute Monocyte Count 0.55 10^3/uL (0.1-0.8); Absolute Neutrophil Count 5.49 10^3/uL (1.2-6.7); Basophils % 0.3; Eosinophils % 0.8; HCT 42.7 % (40.0-50.0); HGB 13.1 g/dL (13.5-17.5); Immature Grans % 0.3; Lymphocytes % 4.2; MCH 29.6 pg (27.0-33.0); MCHC 30.7 % (32.0-36.0); MCV 96.4 fL (80-95); MPV 9.2 fL (8.0-11.0); Monocytes % 8.6; Neutrophils % 85.8; Nucleated RBC 0 %; Platelet Count 312 10^3/uL (130-400); RBC 4.43 10^6/uL (4.36-5.78); RDW 15.3 % (11.8-14.1); RDW-SD 53.4 fL
[2021-12-16 10:31] LABS: ALT 27 U/L (16-63); AST 19 U/L (15-37); Albumin 3.5 g/dL (3.4-5.0); Alkaline Phosphatase 67 U/L (46-116); Anion Gap 9.3 mmol/L (3-11); BUN 34 mg/dL (7-18); Bilirubin, Total 0.5 mg/dL (0.2-1.0); CO2 28.7 mmol/L (21.0-32.0); CREATININE 1.2 mg/dL (0.70-1.30); Calcium 9.5 mg/dL (8.5-10.1); Chloride 98 mmol/L (98-107); Estimated GFR 59.51 (mL/min/1.73m2); Glucose 183 mg/dL (74-106); Magnesium 1.9 mg/dL (1.8-2.4); Potassium 4.7 mmol/L (3.5-5.1); Sodium 136 mmol/L (136-145); Total Protein 8.1 g/dL (6.4-8.2)
[2021-12-18] MEDS: Normal Saline Flush 10 ML SYR IVP (10:00)
[2021-12-18 10:21] LABS: Magnesium 1.6 mg/dL (1.8-2.4)
[2021-12-20] MEDS: Normal Saline Flush 10 ML SYR IVP (11:09)
[2021-12-20 11:13] LABS: Magnesium 1.4 mg/dL (1.8-2.4)
[2021-12-23] MEDS: Normal Saline Flush 10 ML SYR IVP (10:42)
[2021-12-23 11:01] LABS: Abs Immature Grans 0.02 10^3/uL (0.0-0.06); Absolute Basophil Count 0.01 10^3/uL (0.0-0.2); Absolute Eosinophil Count 0.02 10^3/uL (0.0-0.7); Absolute Monocyte Count 0.69 10^3/uL (0.1-0.8); Absolute Neutrophil Count 5.78 10^3/uL (1.2-6.7); Basophils % 0.1; Eosinophils % 0.3; HCT 41.5 % (40.0-50.0); HGB 12.9 g/dL (13.5-17.5); Immature Grans % 0.3; Lymphocytes % 4.4; MCH 29.9 pg (27.0-33.0); MCHC 31.1 % (32.0-36.0); MCV 96.1 fL (80-95); MPV 9.3 fL (8.0-11.0); Monocytes % 10.1; Neutrophils % 84.8; Platelet Count 482 10^3/uL (130-400); RBC 4.32 10^6/uL (4.36-5.78); RDW 15.2 % (11.8-14.1); RDW-SD 53.2 fL; WBC 6.82 10^3/uL (4.4-10.8)
[2021-12-23 11:15] LABS: ALT 31 U/L (16-63); AST 25 U/L (15-37); Albumin 3.4 g/dL (3.4-5.0); Alkaline Phosphatase 69 U/L (46-116); Anion Gap 7.3 mmol/L (3-11); BUN 23 mg/dL (7-18); Bilirubin, Total 0.3 mg/dL (0.2-1.0); CO2 29.7 mmol/L (21.0-32.0); CREATININE 1.1 mg/dL (0.70-1.30); Calcium 9.3 mg/dL (8.5-10.1); Chloride 99 mmol/L (98-107); Glucose 197 mg/dL (74-106); Magnesium 1.4 mg/dL (1.8-2.4); Potassium 4.6 mmol/L (3.5-5.1); Sodium 136 mmol/L (136-145); Total Protein 8.1 g/dL (6.4-8.2)
[2021-12-30 11:49] LABS: Abs Immature Grans 0.04 10^3/uL (0.0-0.06); Absolute Basophil Count 0.02 10^3/uL (0.0-0.2); Absolute Eosinophil Count 0.03 10^3/uL (0.0-0.7); Absolute Lymphocyte Count 0.21 10^3/uL (1.2-3.4); Absolute Monocyte Count 0.82 10^3/uL (0.1-0.8); Absolute Neutrophil Count 7.07 10^3/uL (1.2-6.7); Basophils % 0.2; Eosinophils % 0.4; HCT 41.2 % (40.0-50.0); HGB 13.1 g/dL (13.5-17.5); Immature Grans % 0.5; Lymphocytes % 2.6; MCHC 31.8 % (32.0-36.0); MCV 94.3 fL (80-95); MPV 9.4 fL (8.0-11.0); Neutrophils % 86.3; Platelet Count 528 10^3/uL (130-400); RBC 4.37 10^6/uL (4.36-5.78); RDW 15.1 % (11.8-14.1); RDW-SD 52.1 fL; WBC 8.19 10^3/uL (4.4-10.8)
[2021-12-30] MEDS: Normal Saline Flush 10 ML SYR IVP (11:56)
[2021-12-30 12:02] LABS: ALT 32 U/L (16-63); AST 25 U/L (15-37); Alkaline Phosphatase 76 U/L (46-116); BUN 30 mg/dL (7-18); Bilirubin, Total 0.3 mg/dL (0.2-1.0); CREATININE 1.1 mg/dL (0.70-1.30); Calcium 9.1 mg/dL (8.5-10.1); Chloride 95 mmol/L (98-107); Glucose 288 mg/dL (74-106); Magnesium 1.4 mg/dL (1.8-2.4); Potassium 4.5 mmol/L (3.5-5.1); Sodium 132 mmol/L (136-145); Total Protein 7.8 g/dL (6.4-8.2)
== END 2022-01-04 23:59 | disposition home or self-care (01) ==
LOC: INF 04:19
PROVIDERS: PCP Family Medicine; Visit Provider Internal Medicine Hematology & Oncology
DX: C09.9 Malignant neoplasm of tonsil, unspecified (principal); Z45.2 Encounter for adjustment and management of vascular access device
CPT/HCPCS: 36591; 80053; 83735; 85025

== ENCOUNTER 2022-01-02 13:26 | Emergency (ER) | payer MEDICARE, OTHER, SELFPAY ==
[2022-01-02] VITALS (39 sets, daily range): BP systolic 89–120; BP diastolic 41–63; PULSE 60–85; RESP 10–21; TEMP 36.4–36.5; O2SAT 91–96
--- NOTE | 2022-01-02 13:15 | RT.EKG_ITS ---
APPROVED REPORT Exam: Resting ECG Reason for Exam: BRADYCARDIA Patient Location: E HR:68 bpm ECG Measurements Heart Rate 68 AXIS HI 135 P 36 QRSd 107 QRS 0 QT 459 T -1 QTc 488 Conclusion Sinus rhythm. Ventricular premature complex
--- NOTE | 2022-01-02 14:00 | DI.CT_ITS ---
Exam(s) CT HEAD WO EXAM: CT HEAD WO CLINICAL HISTORY: AMS. TECHNIQUE: Imaging Protocol: Axial computed tomography images with coronal and sagittal reformatted images were created and reviewed COMPARISON: No exams were available for comparison FINDINGS: There is moderate generalized cerebral atrophy and there is marked decreased attenuation in perivent ricular white matter and pontine white consistent with microvascular ischemic changes.. No evidence of acute intracranial hemorrhage, mass effect, or midline shift. The orbital structures are unremarkable. The temporal bone structures appear intact. Calvarium: Normal. Visualized Paranasal sinuses/Mastoids: Clear. IMPRESSION: No evidence of acute intracranial process.. RADIATION DOSE DELIVERED: 817.91mGy.cm Total DLP 817.91mGy.cm Total DLP !Error CTDIvol DATA REPOSITORY: All CT scans at this facility are submitted to the National Radiology Data Registry (NRDR) Dose Index Registry (DIR) with the [employer] (ACR). RADIATION OPTIMIZATION: All CT scans at this facility use at least one of these dose optimization te chniques: automated exposure control; mA and/or kV adjustment per patient size (includes targeted exa ms where dose is matched to clinical indication); or iterative reconstruction.
[2022-01-02] MEDS: Normal Saline 1,000 ML 1000 ML IV (14:20)
[2022-01-02 14:25] LABS: Abs Immature Grans 0.05 10^3/uL (0.0-0.06); Absolute Basophil Count 0.02 10^3/uL (0.0-0.2); Absolute Eosinophil Count 0.05 10^3/uL (0.0-0.7); Absolute Monocyte Count 1.01 10^3/uL (0.1-0.8); Absolute Neutrophil Count 9.01 10^3/uL (1.2-6.7); Basophils % 0.2; Eosinophils % 0.5; HCT 39.6 % (40.0-50.0); HGB 12.4 g/dL (13.5-17.5); Immature Grans % 0.5; Lymphocytes % 1.9; MCH 30.2 pg (27.0-33.0); MCHC 31.3 % (32.0-36.0); MCV 96 fL (80-95); MPV 9.4 fL (8.0-11.0); Monocytes % 9.8; Neutrophils % 87.1; Platelet Count 480 10^3/uL (130-400); RBC 4.11 10^6/uL (4.36-5.78); RDW 15.5 % (11.8-14.1); RDW-SD 54.4 fL; WBC 10.34 10^3/uL (4.4-10.8)
[2022-01-02 14:37] LABS: ALT 31 U/L (16-63); AST 25 U/L (15-37); Albumin 2.8 g/dL (3.4-5.0); Alkaline Phosphatase 76 U/L (46-116); BUN 28 mg/dL (7-18); Bilirubin, Total 0.3 mg/dL (0.2-1.0); CREATININE 1.1 mg/dL (0.70-1.30); Calcium 8.8 mg/dL (8.5-10.1); Chloride 99 mmol/L (98-107); Glucose 205 mg/dL (74-106); Magnesium 1.5 mg/dL (1.8-2.4); Potassium 4.6 mmol/L (3.5-5.1); Sodium 135 mmol/L (136-145); Total Protein 7.2 g/dL (6.4-8.2)
[2022-01-02 14:50] LABS: Ammonia 31 umol/L (11-32)
[2022-01-02] MEDS: MAGNESIUM SULFATE 2 GM/50 ML BAG IVPB (15:06)
--- NOTE | 2022-01-02 15:20 | ED.GENADUL_ITS ---
Discharge Plan Disposition Patient Disposition: STILL A PATIENT Discharge Details Primary Care Provider: Beatriz Cotton V ED Provider: Ron Carrizales Home Meds and New Rx's Prescriptions: No Action sucralfate 1 gram tablet 1 g PO .4x daily 0RF Levemir FlexTouch U-100 Insuln 100 unit/mL (3 mL) insulin pen 22 unit SC BID 0RF Label Comments: 08/23/19 Pt states taking 44 units bid, sugar running 170's w/hip pain. PG amoxicillin 500 mg tablet 2,000 mg PO .PROIR TO DENTAL 0RF cyanocobalamin (vitamin B-12) 1,000 mcg Tablet 1,000 mcg feeding tube DAILY 0RF meclizine 25 mg Tablet 25 mg feeding tube Q6H PRN0RF albuterol sulfate 8.5 GM HFA aerosol inhaler 2 puff Inhalation Q4H 0RF fluoxetine [Prozac] 20 MG capsule 40 mg feeding tube DAILY 0RF bisoprolol fumarate 10 MG tablet 10 mg PO DAILY Qty: 90 3RF levothyroxine 125 mcg capsule 63 mcg PO DAILY 0RF cholecalciferol (vitamin D3) 25 mcg (1,000 unit) capsule 25 mcg feeding tube DAILY 0RF ibuprofen 200 mg capsule 200 mg PO Q6H PRN0RF omeprazole 40 mg capsule,delayed release(DR/EC) 40 mg feeding tube DAILY 0RF vitamin E 200 UNIT capsule 400 unit feeding tube DAILY 0RF Label Comments: PT. TAKES 400 U metformin 500 MG tablet extended release 24 hr 1,000 mg PO BID 0RF simvastatin 10 mg Tablet 10 mg feeding tube DAILY 0RF insulin aspart U-100 [Novolog Flexpen U-100 Insulin] 100 unit/mL (3 mL) insulin pen 0 unit SUBCUT DAILY 0RF Rx Instructions: takes total of 55 units daily between sliding scale and carb coverage lisinopril 10 MG tablet 5 mg feeding tube DAILY 0RF acetaminophen 500 mg tablet 500 mg PO Q6H PRN (Reason: pain) Qty: 60 2RF celecoxib 100 mg capsule 100 mg PO BID Qty: 30 0RF oxycodone 5 mg/5 mL solution feeding tube 0RF Label Comments: GIVE 5ML PER GIVE TUBE EVERY 3 HOURS NEEDED FOR PAIN fentanyl 25 mcg/hr patch 72 hour 50 mcg topical Q72H 0RF Label Comments: APPLY 1 PATCH TO CLEAN, DRY SKIN FOR 72 HOURS THEN REMOVE, DISPOSE OF PROPERLY AND APPLY A NEW PATCH ON A DIFFERENT, CLEAN DRY SKIN SITE oxycodone [OxyContin] 10 mg tablet,oral only,ext.rel.12 hr 10 mg PO PRN PRN0RF Label Comments: TAKE ONE TABLET BY MOUTH EVERY 12 HOURS FOR PAIN silver sulfadiazine 1 % cream TOPICAL 0RF lorazepam 0.5 mg tablet feeding tube PRN PRN0RF Label Comments: TAKE ONE TABLET BY MOUTH 1/2 HOUR PRIOR TO RADIATION THERAPY aspirin 81 mg tablet,delayed release (DR/EC) 81 mg feeding tube BID 0RF Medical Decision Making Patient presenting to the emergency department with chief complaint of altered mental status. Yesterday patient's fentanyl was increased and an hour to 2 later he became more altered. Patient denies any focal weakness but does state significant neck pain that is unchanged secondary to his radiation. Patient has pertinent history of neck cancer and difficulty swallowing with only intake t hrough G-tube. Patient denies any other focal signs or symptoms. Physical exam shows alert and oriented x3 patient with report of generalized confusion but appropriately answering all questions. No focal neurological deficits and exam is otherwise unremarkable beyond typical findings for radiation therapy to the neck. Patient's family does state that he has been receiving daily IV hydration at infusion center along with magnesium due to this being well. Plan on checking labs including magnesium and performing head CT scan given cancer history. Plan to give patient fluid bolus. While Narcan is considered given high suspicion of slight adverse reaction to increase fentanyl patient is alert and oriented and has appropriate respirations so will hold this medication at this Review of labs show baseline anemia and elevated platelets otherwise nondiagnostic CBC, sodium slightly low at 135 BUN elevated at 28 otherwise appropriate creatinine and GFR, glucose of 205, mag is low at 1.5 and albumin 2.8. Given low magnesium we will order patient IV magnesium given this could be contributing to patient's confusion. Spoke to radiologist and no acute findings are noted on CT imaging of head. Patient signed out pending completion of IV magnesium along with IV fluids. HPI General Mode of arrival: ambulatory . Date/Time Provider Initiated Documentation: 01/02/22 13:47 . Limitations to Documentation: no limitations . Information obtained by: patient, family and RN notes reviewed . History of Present Illness 71 year old M presents to the emergency department with the chi ef complaint of AMS, Quality is described as other (denies any new or change in pain), Patient started experiencing this day(s) (1) and it has been constant. improves with No relieving factors improve symptom(s), Other factors that worsen symptoms (increase in fentanyl) . Patient notes confusion. Patient did receive the following treatments prior to arrival, other (Removal of patch) Related Data Home Medications Medication Instructions Recorded Confirmed metformin 500 mg tablet,extended 1,000 mg PO BID 04/07/14 01/02/22 release 24 hr vitamin E 200 unit capsule 400 unit FEEDING TUBE DAILY 04/07/14 10/12/21 albuterol sulfate 90 mcg/actuation 2 puff INHALATION Q4H inhaler 10/16/14 01/02/22 aerosol inhaler fluoxetine 20 mg capsule (Prozac) 40 mg FEEDING TUBE DAILY tab-cap 11/08/14 01/02/22 bisoprolol fumarate 10 mg tablet 10 mg PO DAILY #90 tab-cap 04/28/18 10/12/21 amoxicillin 500 mg tablet 2,000 mg PO .PROIR TO DENTAL tab 01/04/19 10/12/21 insulin detemir U-100 100 unit/mL 22 unit SC BID ml 01/04/19 01/02/22 (3 mL) subcutaneous pen (Levemir FlexTouch U-100 Insulin) lisinopril 10 mg tablet 5 mg FEEDING TUBE DAILY 08/23/19 01/02/22 simvastatin 10 mg tablet 10 mg FEEDING TUBE DAILY 06/20/20 10/12/21 cyanocobalamin (vitamin B-12) 1,000 mcg FEEDING TUBE DAILY 06/28/20 01/02/22 1,000 mcg tablet meclizine 25 mg tablet 25 mg FEEDING TUBE Q6H PRN 06/28/20 01/02/22 insulin aspart U-100 100 unit/mL 0 unit SUBCUT DAILY 09/04/20 01/02/22 (3 mL) subcutaneous pen (Novolog Flexpen U-100 Insulin aspart) acetaminophen 500 mg tablet 500 mg PO Q6H PRN #60 tab 07/31/21 10/12/21 celecoxib 100 mg capsule 100 mg PO BID #30 cap 07/31/21 10/12/21 cholecalciferol (vitamin D3) 25 25 mcg FEEDING TUBE DAILY 09/10/21 01/02/22 mcg (1,000 unit) capsule ibuprofen 200 mg capsule 200 mg PO Q6H PRN 09/10/21 01/02/22 levothyroxine 125 mcg capsule 63 mcg PO DAILY cap 09/10/21 01/02/22 omeprazole 40 mg capsule,delayed 40 mg FEEDING TUBE DAILY 09/10/21 01/02/22 release sucralfate 1 gram tablet 1 g PO .4x daily tab 09/23/21 10/12/21 aspirin 81 mg tablet,delayed 81 mg FEEDING TUBE BID 01/02/22 01/02/22 release fentanyl 25 mcg/hr transdermal 50 mcg TOPICAL Q72H 01/02/22 01/02/22 patch lorazepam 0.5 mg tablet mg FEEDING TUBE PRN PRN 01/02/22 oxycodone 10 mg tablet,crush 10 mg PO PRN PRN 01/02/22 01/02/22 resistant,extended release 12 hr (OxyContin) oxycodone 5 mg/5 mL oral solution mg FEEDING TUBE 01/02/22 silver sulfadiazine 1 % topical applic TOPICAL 01/02/22 01/02/22 cream Previous Rx's Medication Instructions Recorded bisoprolol fumarate 10 mg tablet 10 mg PO DAILY #90 tab-cap 04/28/18 acetaminophen 500 mg tablet 500 mg PO Q6H PRN #60 tab 07/31/21 celecoxib 100 mg capsule 100 mg PO BID #30 cap 07/31/21 Allergies Allergy/AdvReac Type Severity Reaction Status Date / Time ceftriaxone Allergy Severe ANAPHYLAXIS Verified 10/11/21 10:48 Cephalosporins Allergy Severe Anaphylaxsi Verified 10/11/21 10:48 s ciprofloxacin AdvReac Dizziness/L Verified 10/11/21 10:48 ightheade meperidine HCl [From Demerol] AdvReac vomiting Verified 10/11/21 10:48 morphine AdvReac vomiting Verified 10/11/21 10:48 General Stated Complaint: AMS/LOC CASIMIRO: 2 Review of Systems Constitutional Constitutional: Denies chills, Denies fever(s), Reports headache(s) and Reports malaise ENT Ears, Nose, Mouth, and Throat: Denies dizziness and Reports headache(s) Cardiovascular Cardiovascular: Denies chest pain, Denies syncope, Denies edema and Denies dyspnea Respiratory Respiratory: Denies cough and Denies dyspnea Gastrointestinal Gastrointestinal: Denies abdominal pain, Denies nausea and Denies vomiting Genitourinary Genitourinary: Denies oliguria, Denies difficulty urinating and Denies dysuria Musculoskeletal Musculoskeletal: Denies back pain Integumentary/Breasts Skin/Breast: Reports erythema (Secondary to radiation therapy) Neurologic Neurologic: Reports confusion, Denies dizziness, Denies syncope and Reports headache(s) Psychiatric Psychiatric: Reports confusion PFSH All Active Problems Squamous cell carcinoma of tonsil (Acute) Cervical lymphadenopathy (Acute) Tonsillar mass (Acute) Sleep apnea (Acute) Unintentional weight loss (Acute) Swallowing problem (Acute) Abnormal laboratory test (Acute) Screening for colon cancer (Acute) Chest pain (Acute) Asthma (Chronic) Medical History Arthralgia Back pain, acute Bradycardia Chondromalacia patellae of left knee Chronic low back pain Colon polyps Depression Diabetic peripheral neuropathy Diverticulosis DJD of right AC (acromioclavicular) joint Essential tremor (11/21/14) Fatigue GERD (gastroesophageal reflux disease) Headache Cervical Hip pain, left History of tobacco use HTN (hypertension) Hyperlipemia Hypotension Hypothyroidism 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) Insect bite Internal derangement of left knee Lumbosacral neuritis Neck pain on left side Obesity Osteoarthritis of left knee Primary osteoarthritis of right hip Prolonged depression Psoriasis Radicular syndrome of lower limbs Resting tremor Right rotator cuff tear Injection under fluoroscopy: 11/04/18 Status post rotator cuff repair DOS: 01/25/2019 Septic arthritis of knee Septic joint Shoulder pain, left Shoulder pain, right Trigeminy URI, acute Vertigo Vitamin B12 deficiency Surgical History 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 Trochanteric bursitis, left hip S/P debridement with IT band lengthenin08/12/2021 Family History Father Heart disease Brother Tremor Son Seizure Mother Osteoarthritis Social History Smoking/Tobacco Use Status: Former Tobacco Use Quit Date: 09/07/79 Pack-years: 1 Smoking risk assessment performed?: Yes Alcohol Intake: never Drug use: Never Substance use type: does not use Household members: children Housing: house Number of Children: 2 current occupation: Retired Current gender identity: male What type of physical activity do you participate in: independent ambulation Do you feel safe at home: Yes Do you feel safe in your relationship?: Yes Exam Const General: cooperative, healthy appearing, no acute distress and well groomed Orientation: alert, awake and oriented x3 HENMT Head: normal to inspection Ears: hearing grossly normal bilaterally Mouth: moist mucous membranes abnormal (dry) Eyes Visual Jaffe: normal visual jaffe by confrontation Alignment and Position: alignment normal Periorbital: periorbital findings normal Eyelids: eyelids normal Sclera: sclerae normal Pupils: PERRL EOM: EOM intact bilaterally Resp Effort & Inspection: normal respiratory effort and able to speak in complete sentences Auscultation: clear to auscultation bilaterally Cardio Rate: regular rate Rhythm: regular rhythm Heart Sounds: S1 normal and S2 normal Neuro General: patient alert, patient awake, patient oriented x3, moves all extremities and CN's II-XI intact bilaterally Cognition: normal cognition Speech: speech normal Motor: muscle tone normal throughout, no pronator drift, no movement abnormalities noted and no fasciculations Sensory Exam: no sensory deficits noted Coordination: Does not sway with eyes open Course Vital Signs Vital signs: Vital Signs Temperature 36.4 C L 01/02/22 13:32 Pulse 85 01/02/22 13:32 Respiratory Rate 12 01/02/22 13:32 Blood Pressure 120/63 01/02/22 13:32 Pulse Oximetry 96 01/02/22 13:32 Temperature 36.5 C 01/02/22 15:01 Temperature Source Temporal Artery Scan 01/02/22 13:32 Pulse 64 01/02/22 15:01 Respiratory Rate 11 L 01/02/22 15:01 Respiratory Effort 01/02/22 14:34 Respiratory Depth Normal 01/02/22 14:34 Respiratory Pattern Normal 01/02/22 14:34 Blood Pressure 107/48 L 01/02/22 15:01 Blood Pressure Position Supine 01/02/22 13:32 Pulse Oximetry 94 01/02/22 15:01 Oxygen Delivery Method Room Air 01/02/22 15:01 Oxygen Flow Rate 0 01/02/22 15:01 Pain Level 5 01/02/22 13:32 Lab/Test Results Lab/Test Results: Laboratory Tests Range/Units 01/02/22 01/02/22 01/02/22 14:08 14:08 14:36 WBC (4.4-10.8) 10^3/uL 10.34 RBC (4.36-5.78) 10^6/uL 4.11 L Hgb (13.5-17.5) g/dL 12.4 L Hct (40.0-50.0) % 39.6 L MCV (80-95) fL 96 H MCH (27.0-33.0) pg 30.2 MCHC (32.0-36.0) % 31.3 L RDW (11.8-14.1) % 15.5 H Plt Count (130-400) 10^3/uL 480 H MPV (8.0-11.0) fL 9.4 Immature Gran % 0.5 Neutrophils % 87.1 Lymphocytes % 1.9 Monocytes % 9.8 Eosinophils % 0.5 Basophils % 0.2 Nucleated RBC % (0.0-0.3) % 0.0 Absolute Neutrophils (1.2-6.7) 10^3/uL 9.01 H Absolute Lymphocytes (1.2-3.4) 10^3/uL 0.20 L Absolute Monocytes (0.1-0.8) 10^3/uL 1.01 H Absolute Eosinophils (0.0-0.7) 10^3/uL 0.05 Absolute Basophils (0.0-0.2) 10^3/uL 0.02 Sodium (136-145) mmol/L 135 L Potassium (3.5-5.1) mmol/L 4.6 Chloride (98-107) mmol/L 99 Carbon Dioxide (21.0-32.0) mmol/L 31.0 Anion Gap (3-11) mmol/L 5.0 BUN (7-18) mg/dL 28 H Creatinine (0.70-1.30) mg/dL 1.1 Estimated GFR/1.73 m2 (mL/min/1.73m2) >= 60.00 Glucose (74-106) mg/dL 205 H Calcium (8.5-10.1) mg/dL 8.8 Magnesium (1.8-2.4) mg/dL 1.5 L Total Bilirubin (0.2-1.0) mg/dL 0.3 AST (15-37) U/L 25 ALT (16-63) U/L 31 Alkaline Phosphatase (46-116) U/L 76 Ammonia (11-32) umol/L 31 Total Protein (6.4-8.2) g/dL 7.2 Albumin (3.4-5.0) g/dL 2.8 L Sign Out Sign Out Data: Sign Out Comment: Patient pending completion of IV fluids and magnesium. After completion plan for reassessment and disposition with high likelihood of discharge Last updated by Ron Carrizales NP at 01/02/22 15:54
[2022-01-02 16:13] LABS: Bilirubin Negative (Negative); Blood Negative (Negative); Clarity Sl Cloudy (Clear); Glucose Negative (Negative); Ketones Trace mg/dL (Negative); Leukocyte Esterase Negative (Negative); Nitrite Negative (Negative); Specific Gravity >= 1.030 (1.005-1.025); Urobilinogen 0.2 EU/dL (Up TO 0.2); pH 5.5 (5-8)
--- NOTE | 2022-01-02 16:16 | ED.PROG_ITS ---
Date of service: 01/02/22 Time of Service: 16:16 Medical Decision Making 1617: Care assumed from provider (Kameron Carrizales, [employer] Please see their initial HPI, PE, and documentation. Discussed patient details and case and pending magnesium administration over 2 hours and reevaluation and disposition. Patient is hemod ynamically stable. In short patient is a 71-year-old male with a history of generalized altered mental status since this morning no focal neurodeficits. Does have a history of head and neck CA last radiation and chemo on Thursday. Had some recent fentanyl dose increase yesterday. 1628: At the time of signout blood pressure is 117/56 heart rate 61, O2 sat 92% on room air, Plan is to reevaluate after magnesium administration. 1656: Patient reevaluation son is at bedside. Magnesium is not infusing, patient has received a liter of normal saline. Blood pressure is 105/56. I do suspect that the confusion could be from dehydration coupled with the increase in the sentinel dose yesterday and hypomagnesemia. Discussed home care with son who reports that he is out of his 25 mcg fentanyl patches and only has 50 mcg patches left. We will write a prescription for this. We will road test patient prior to discharge patient does have an appointment tomorrow at the infusion/cancer center. 1722: Patient ambulatory with minimal assistance up to bathroom and back without any difficulty. Plan is to discharge patient home with number 5 25 mcg fentanyl patches and instructions to keep appointment tomorrow. Discuss strict return instructions patient is hemodynamically stable at the time of this dictation. This text was generated using [employer] dictation system, please disregard any oddities of phrase or misspellings. Sign Out Sign Out Data: Sign Out Comment: Patient pending completion of IV fluids and magnesium. After completion plan for reassessment and disposition with high likelihood of discharge Last updated by Ron Carrizales NP at 01/02/22 15:54 Discharge Plan Disposition Patient Disposition: HOME Condition: Improving Discharge Details Clinical Impression: Dehydration, Altered mental status Primary Care Provider: Beatriz Cotton V ED Provider: Tessa Gupta Home Meds and New Rx's Prescriptions: New fentanyl 25 mcg/hr patch 72 hour 1 patch transdermal Q72H Qty: 5 0RF Rx Instructions: Leave 1 patch on for 72 hours. Take off clean skin and apply new patch. No Action sucralfate 1 gram tablet 1 g PO .4x daily 0RF Levemir FlexTouch U-100 Insuln 100 unit/mL (3 mL) insulin pen 22 unit SC BID 0RF Label Comments: 08/23/19 Pt states taking 44 units bid, sugar running 170's w/hip pain. PG amoxicillin 500 mg tablet 2,000 mg PO .PROIR TO DENTAL 0RF cyanocobalamin (vitamin B-12) 1,000 mcg Tablet 1,000 mcg feeding tube DAILY 0RF meclizine 25 mg Tablet 25 mg feeding tube Q6H PRN0RF albuterol sulfate 8.5 GM HFA aerosol inhaler 2 puff Inhalation Q4H 0RF fluoxetine [Prozac] 20 MG capsule 40 mg feeding tube DAILY 0RF bisoprolol fumarate 10 MG tablet 10 mg PO DAILY Qty: 90 3RF levothyroxine 125 mcg capsule 63 mcg PO DAILY 0RF cholecalciferol (vitamin D3) 25 mcg (1,000 unit) capsule 25 mcg feeding tube DAILY 0RF ibuprofen 200 mg capsule 200 mg PO Q6H PRN0RF omeprazole 40 mg capsule,delayed release(DR/EC) 40 mg feeding tube DAILY 0RF vitamin E 200 UNIT capsule 400 unit feeding tube DAILY 0RF Label Comments: PT. TAKES 400 U metformin 500 MG tablet extended release 24 hr 1,000 mg PO BID 0RF simvastatin 10 mg Tablet 10 mg feeding tube DAILY 0RF insulin aspart U-100 [Novolog Flexpen U-100 Insulin] 100 unit/mL (3 mL) insulin pen 0 unit SUBCUT DAILY 0RF Rx Instructions: takes total of 55 units daily between sliding scale and carb coverage lisinopril 10 MG tablet 5 mg feeding tube DAILY 0RF acetaminophen 500 mg tablet 500 mg PO Q6H PRN (Reason: pain) Qty: 60 2RF celecoxib 100 mg capsule 100 mg PO BID Qty: 30 0RF oxycodone 5 mg/5 mL solution feeding tube 0RF Label Comments: GIVE 5ML PER GIVE TUBE EVERY 3 HOURS NEEDED FOR PAIN fentanyl 25 mcg/hr patch 72 hour 50 mcg topical Q72H 0RF Label Comments: APPLY 1 PATCH TO CLEAN, DRY SKIN FOR 72 HOURS THEN REMOVE, DISPOSE OF PROPERLY AND APPLY A NEW PATCH ON A DIFFERENT, CLEAN DRY SKIN SITE oxycodone [OxyContin] 10 mg tablet,oral only,ext.rel.12 hr 10 mg PO PRN PRN0RF Label Comments: TAKE ONE TABLET BY MOUTH EVERY 12 HOURS FOR PAIN silver sulfadiazine 1 % cream TOPICAL 0RF lorazepam 0.5 mg tablet feeding tube PRN PRN0RF Label Comments: TAKE ONE TABLET BY MOUTH 1/2 HOUR PRIOR TO RADIATION THERAPY aspirin 81 mg tablet,delayed release (DR/EC) 81 mg feeding tube BID 0RF Discharge Instructions Instructions: Dehydration (ED), Altered Mental Status (ED) Additional Instructions: At this time there is no evidence of acute stroke. Do believe the confusion is multifactorial including dehydration, new increased fentanyl dosing and low magnesium. You were given 2 g of IV magnesium here in the department today. You are also given a liter of normal saline. A new prescription for fentanyl 25 mcg patches was given. Please use these and discuss with your physician regarding the increased dose of fentanyl. Follow up with primary care provider in 3-5 days. Return to ED sooner if any worsening or concerns. Increase fluids. Referrals: Beatriz Cotton MD [Primary Care Provider] - 3 days
[2022-01-02 17:17] LABS: Bacteria Negative HPF (Negative); Crystals Negative HPF (Negative); Epithelial Cells Negative HPF (Negative); Mucus Heavy (Negative); RBC 0-2 HPF (0-2); WBC 0-2 HPF (0-5)
[2022-01-02 17:18] LABS: C & S Indicated? No
[2022-01-02] MEDS: Heparin 500 UNITS/5 ML SYRINGE (17:46)
== END 2022-01-02 17:47 | disposition home or self-care (01) ==
PROVIDERS: Nurse Practitioner Family; Emergency Provider Registered Nurse Emergency; PCP Family Medicine
DX: E86.0 Dehydration (principal); R41.82 Altered mental status, unspecified; C76.0 Malignant neoplasm of head, face and neck
CPT/HCPCS: 36416; 80053; 82962; 93005; 96361; 96365; 96366; 99284; 70450; 81003; 81015; 82140; 83735; 85025; 93010

== ENCOUNTER 2022-01-06 01:15 | Outpatient (RCR) | payer MEDICARE, OTHER, SELFPAY ==
[2022-01-06] MEDS: Normal Saline Flush 10 ML SYR IVP (12:32)
[2022-01-06 13:04] LABS: Abs Immature Grans 0.08 10^3/uL (0.0-0.06); Absolute Basophil Count 0.03 10^3/uL (0.0-0.2); Absolute Eosinophil Count 0.05 10^3/uL (0.0-0.7); Absolute Lymphocyte Count 0.36 10^3/uL (1.2-3.4); Absolute Monocyte Count 1.08 10^3/uL (0.1-0.8); Absolute Neutrophil Count 7.92 10^3/uL (1.2-6.7); Basophils % 0.3; Eosinophils % 0.5; HCT 41.4 % (40.0-50.0); HGB 13.2 g/dL (13.5-17.5); Immature Grans % 0.8; Lymphocytes % 3.8; MCH 29.9 pg (27.0-33.0); MCHC 31.9 % (32.0-36.0); MCV 94 fL (80-95); MPV 9.7 fL (8.0-11.0); Monocytes % 11.3; Neutrophils % 83.3; Platelet Count 529 10^3/uL (130-400); RBC 4.41 10^6/uL (4.36-5.78); RDW 15.8 % (11.8-14.1); RDW-SD 53.5 fL; WBC 9.52 10^3/uL (4.4-10.8)
[2022-01-06 13:31] LABS: ALT 28 U/L (16-63); AST 22 U/L (15-37); Albumin 2.9 g/dL (3.4-5.0); Alkaline Phosphatase 79 U/L (46-116); Anion Gap 7.8 mmol/L (3-11); BUN 22 mg/dL (7-18); Bilirubin, Total 0.3 mg/dL (0.2-1.0); CO2 30.2 mmol/L (21.0-32.0); CREATININE 0.9 mg/dL (0.70-1.30); Calcium 9.1 mg/dL (8.5-10.1); Chloride 98 mmol/L (98-107); Glucose 153 mg/dL (74-106); Magnesium 1.4 mg/dL (1.8-2.4); Potassium 4.3 mmol/L (3.5-5.1); Sodium 136 mmol/L (136-145); Total Protein 7.5 g/dL (6.4-8.2)
== END 2022-02-04 23:59 | disposition home or self-care (01) ==
LOC: INF 01:15
PROVIDERS: PCP Family Medicine; Visit Provider Internal Medicine Hematology & Oncology
DX: C09.9 Malignant neoplasm of tonsil, unspecified (principal); Z45.2 Encounter for adjustment and management of vascular access device
CPT/HCPCS: 36591; 80053; 83735; 85025

== ENCOUNTER 2022-01-06 14:48 | Inpatient (IN) | payer MEDICARE, OTHER, SELFPAY ==
[2022-01-06 15:28] LABS: Source Nasal/Nares
[2022-01-06] MEDS: HYDROmorphone 2 MG/ML SYR IVP ×2 (15:33→18:04)
[2022-01-06 16:12] LABS: COVID-19 PCR Negative (Negative)
[2022-01-06 16:15] VITALS: BP 122/72; PULSE 76; RESP 16; TEMP 37; O2SAT 94
[2022-01-06] MEDS: HYDROmorphone 50 MG in Normal Saline 245 ML IV (17:53)
[2022-01-06] MEDS: Normal Saline Flush 10 ML SYR ×3 (18:05→18:11)
[2022-01-06 19:49] VITALS: BP 116/60; PULSE 60; RESP 16; TEMP 36.6; O2SAT 96
[2022-01-06] MEDS: Sucralfate 1 GM TAB UD (21:47)
--- NOTE | 2022-01-06 22:01 | NUR.NOTE ---
Nursing Note: At 1999 this RN told the patient that theres an order for fluid which is normal saline and that i need to put an IV access in place pt refused to have an iv inserted at this time. States he will consider it in the morning.
[2022-01-06 22:48] VITALS: BP 116/60; PULSE 62; RESP 16; TEMP 36.6; O2SAT 96
[2022-01-07] MEDS: Normal Saline 1,000 ML 80 ML IV (02:43)
[2022-01-07 03:12] VITALS: BP 106/57; PULSE 67; RESP 16; TEMP 36.2; O2SAT 95
--- NOTE | 2022-01-07 04:42 | W.PM.HP.N ---
Date of service: 01/06/22 Time of Service: 16:00 Assessment and Plan Assessment and plan (1) Dehydration: Status: Acute Assessment and plan: IVF @ 80 ml/h (2) Squamous cell carcinoma of tonsil: Status: Acute Assessment and plan: Undergoing tx @ [facility]; monitor pain levels, treat with IV pain medications (3) Swallowing problem: Status: Acute Assessment and plan: S/P radiation; G-tube feedings until pain is resolved History of Present Illness History of Present Illness Chief Complaint: Intractable pain Narrative: Arianna is undergoing treatment at [facility] for tonsil cancer. He began chemoradiation , weekly cisplatin x 2 - he completed his last radiation 12/31/2021. He return to [facility] 01/01 and 01/03 for hydration. He did not go 01/02 secondary to increased pain. His fentanyl patch was increased to 50 mcg. He continued to take oxycodone 5 mg every 3 hours via G-tube. He is currently taking nothing by mouth due to pain. He became quite confused, disoriented and went to the ED. It was determined it was from the increase in opiods; fentanyl was decreased back to 25 mcg. There was an issue getting the Rx and he did not have the fentanyl patch, taking only oxycodone. He was no longer confused. He returned to [facility] today, 01/06 for hydration and reported his mouth was on fire and the pain was intolerable. He reports the pain is on the left neck area and inside his mouth and throat 10/10. Dr Matthews, [facility], sends him here for obs adm to treat pain. He suggests [employer], hydration, magnesium 2 gm daily s/t renal spillageof magnesium secondary to Cetuximab and continue g-tube feedings. Review of Systems Narrative: Constitutional Constitutional:?Denies chills, Denies fever(s), Reports headache(s) and Reports malaise ENT Ears, Nose, Mouth, and Throat:?Denies dizziness and Reports headache(s) Cardiovascular Cardiovascular:?Denies chest pain, Denies syncope, Denies edema and Denies dyspnea Respiratory Respiratory:?Denies cough and Denies dyspnea Gastrointestinal Gastrointestinal:?Denies abdominal pain, Denies nausea and Denies vomiting Genitourinary Genitourinary:?Denies oliguria, Denies difficulty urinating and Denies dysuria Musculoskeletal Musculoskeletal:?Denies back pain Integumentary/Breasts Skin/Breast:?Reports erythema and pain (Secondary to radiation therapy) Neurologic Neurologic: Denies syncope and Reports headache(s) Psychiatric Psychiatric:? PFSH All Active Problems Dehydration (Acute) Altered mental status (Acute) Squamous cell carcinoma of tonsil (Acute) Cervical lymphadenopathy (Acute) Tonsillar mass (Acute) Sleep apnea (Acute) Unintentional weight loss (Acute) Swallowing problem (Acute) Abnormal laboratory test (Acute) Screening for colon cancer (Acute) Chest pain (Acute) Asthma (Chronic) Medical History Arthralgia Back pain, acute Bradycardia Chondromalacia patellae of left knee Chronic low back pain Colon polyps Depression Diabetic peripheral neuropathy Diverticulosis DJD of right AC (acromioclavicular) joint Essential tremor (11/21/14) Fatigue GERD (gastroesophageal reflux disease) Headache Cervical Hip pain, left History of tobacco use HTN (hypertension) Hyperlipemia Hypotension Hypothyroidism 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) Insect bite Internal derangement of left knee Lumbosacral neuritis Neck pain on left side Obesity Osteoarthritis of left knee Primary osteoarthritis of right hip Prolonged depression Psoriasis Radicular syndrome of lower limbs Resting tremor Right rotator cuff tear Injection under fluoroscopy: 11/04/18 Status post rotator cuff repair DOS: 01/25/2019 Septic arthritis of knee Septic joint Shoulder pain, left Shoulder pain, right Trigeminy URI, acute Vertigo Vitamin B12 deficiency Surgical History 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 Trochanteric bursitis, left hip S/P debridement with IT band lengthenin08/12/2021 Family History Father Heart disease Brother Tremor Son Seizure Mother Osteoarthritis Social History Smoking/Tobacco Use Status: Former Tobacco Use Quit Date: 09/07/79 Pack-years: 1 Smoking risk assessment performed?: Yes Alcohol Intake: never Drug use: Never Substance use type: does not use Household members: children Housing: house Number of Children: 2 current occupation: Retired Current gender identity: male What type of physical activity do you participate in: independent ambulation Do you feel safe at home: Yes Do you feel safe in your relationship?: Yes Meds Allergies and Home Medications Allergies Allergy/AdvReac Type Severity Reaction Status Date / Time ceftriaxone Allergy Severe ANAPHYLAXIS Verified 01/02/22 17:16 Cephalosporins Allergy Severe Anaphylaxsi Verified 01/02/22 17:16 s ciprofloxacin AdvReac Dizziness/L Verified 01/02/22 17:16 ightheade meperidine HCl [From Demerol] AdvReac vomiting Verified 01/02/22 17:16 morphine AdvReac vomiting Verified 01/02/22 17:16 Home Medications Medication Instructions Recorded Confirmed Type metformin 500 mg tablet,extended 1,000 mg PO BID 04/07/14 01/06/22 History release 24 hr vitamin E 200 unit capsule 400 unit FEEDING TUBE DAILY 04/07/14 01/06/22 History albuterol sulfate 90 mcg/actuation 2 puff INHALATION Q4H inhaler 10/16/14 01/06/22 History aerosol inhaler fluoxetine 20 mg capsule (Prozac) 40 mg FEEDING TUBE DAILY tab-cap 11/08/14 01/06/22 History amoxicillin 500 mg tablet 2,000 mg FEEDING TUBE .PROIR TO 01/04/19 01/06/22 History DENTAL tab insulin detemir U-100 100 unit/mL 22 unit SC BID ml 01/04/19 01/06/22 History (3 mL) subcutaneous pen (Levemir FlexTouch U-100 Insulin) lisinopril 10 mg tablet 5 mg FEEDING TUBE DAILY 08/23/19 01/06/22 History simvastatin 10 mg tablet 10 mg FEEDING TUBE DAILY 06/20/20 01/06/22 History cyanocobalamin (vitamin B-12) 1,000 mcg FEEDING TUBE DAILY 06/28/20 01/06/22 History 1,000 mcg tablet meclizine 25 mg tablet 25 mg FEEDING TUBE Q6H PRN 06/28/20 01/06/22 History insulin aspart U-100 100 unit/mL 0 unit SUBCUT DAILY 09/04/20 01/06/22 History (3 mL) subcutaneous pen (Novolog Flexpen U-100 Insulin aspart) acetaminophen 500 mg tablet 500 mg PO Q6H PRN #60 tab 07/31/21 01/06/22 Rx levothyroxine 125 mcg capsule 50 mcg PO DAILY cap 09/10/21 01/06/22 History omeprazole 40 mg capsule,delayed 40 mg FEEDING TUBE DAILY 09/10/21 01/06/22 History release aspirin 81 mg tablet,delayed 81 mg FEEDING TUBE DAILY 01/02/22 01/06/22 History release lorazepam 0.5 mg tablet 0.5 mg FEEDING TUBE PRN PRN 01/02/22 01/06/22 History oxycodone 10 mg tablet,crush 10 mg PO TID 01/02/22 01/06/22 History resistant,extended release 12 hr (OxyContin) oxycodone 5 mg/5 mL oral solution 5 mg FEEDING TUBE Q4H PRN PRN 01/02/22 01/06/22 History silver sulfadiazine 1 % topical 1 applic TOPICAL BID 01/02/22 01/06/22 History cream bisoprolol fumarate 10 mg tablet 5 mg FEEDING TUBE DAILY 01/06/22 01/06/22 History docusate sodium 50 mg/5 mL oral 50 mg FEEDING TUBE PRN PRN 01/06/22 01/06/22 History liquid prochlorperazine maleate 10 mg 10 mg FEEDING TUBE HS 01/06/22 01/06/22 History tablet sennosides 8.8 mg/5 mL oral syrup 8.8 mg FEEDING TUBE PRN PRN 01/06/22 01/06/22 History (senna) Exam Narrative Exam Narrative: Const General:?cooperative, healthy appearing, no acute distress and well groomed Orientation:?alert, awake and oriented x3 HENMT Head:?normal to inspection Neck: left sided significant erythema from base up left side of head Ears:?hearing grossly normal bilaterally Mouth:?moist mucous membranes abnormal (dry) Eyes Visual Jaffe:?normal visual jaffe by confrontation Alignment and Position:?alignment normal Periorbital:?periorbital findings normal Eyelids:?eyelids normal Sclera:?sclerae normal Pupils:?PERRL EOM:?EOM intact bilaterally Resp Effort & Inspection:?normal respiratory effort and able to speak in complete sentences Auscultation:?clear to auscultation bilaterally Cardio Rate:?regular rate Rhythm:?regular rhythm Heart Sounds:?S1 normal and S2 normal Neuro General:?patient alert, patient awake, patient oriented x3, moves all extremities and CN's II-XI intact bilaterally Cognition:?normal cognition Speech:?speech normal Motor:?muscle tone normal throughout, no pronator drift, no movement abnormalities noted and no fasciculations Sensory Exam:?no sensory deficits noted Coordination:?Does not sway with eyes open Results Labs Result diagrams: 01/07/22 05:35 Labs: Laboratory Results - last 24 hr 01/06/22 15:15 COVID-19 Source Nasal/Nares SARS-CoV-2 (PCR) Negative Last Vital Signs Temp 36.2 C L 01/07/22 03:12 Pulse 67 01/07/22 03:12 Resp 16 01/07/22 03:12 BP 106/57 L 01/07/22 03:12 Pulse Ox 95 01/07/22 03:12 PAWSS Pt Consumed Any Amount of Alcohol Within the Last 30 days OR had positive KEARA Upon Admission: No Have you Been Recently Intoxicated or Drunk Within the Last 30 days?: No Have you Ever Experienced Previous Episodes of Alcohol Withdrawal?: No Have you ever Experienced Withdrawal Seizures?: No Have you ever Experienced Delirium Tremens(DT)s?: No Have you ever undergone Alcohol Rehabilitation Treatment (i.e, inpt ot outpatient treatment programs)?: No Have you ever Experienced Blackouts?: No Have you ever Combined Alcohol with other Downers within the last 90 days?: No Have you ever Combined Alcohol with any other Substance of Abuse during the last 90 days?: No Positive Blood Alcohol level on Presentation? [PCS.BAL]: No Evidence of Increased Autonomic Activity (i.e. HR>120, tremor, sweating, agitation, nausea)?: No Result: 0
[2022-01-07] MEDS: Levothyroxine 125 MCG TAB 62.5 MCG UD (05:53)
[2022-01-07 07:21] LABS: Anion Gap 5.4 mmol/L (3-11); BUN 23 mg/dL (7-18); CO2 32.6 mmol/L (21.0-32.0); CREATININE 0.8 mg/dL (0.70-1.30); Calcium 8.9 mg/dL (8.5-10.1); Chloride 100 mmol/L (98-107); Glucose 91 mg/dL (74-106); Magnesium 1.6 mg/dL (1.8-2.4); Potassium 4.1 mmol/L (3.5-5.1); Sodium 138 mmol/L (136-145)
[2022-01-07 07:51] VITALS: BP 113/68; PULSE 74; RESP 18; TEMP 36.8; O2SAT 92
[2022-01-07] MEDS: MAGNESIUM SULFATE 2 GM/50 ML BAG IVPB (07:55)
[2022-01-07] MEDS: Silver sulfaDIAZINE 1% 25 GM TUBE TP ×2 (08:36→20:30)
[2022-01-07] MEDS: Omeprazole 20 MG CAPCR 40 MG UD (08:37)
[2022-01-07] MEDS: Sucralfate 1 GM TAB UD (08:38)
--- NOTE | 2022-01-07 10:17 | W.NUTCONSULT ---
Date of service: 01/07/22 Time of Service: 10:17 Nutritional Consult ASSESSMENT: 71 year old male admitted with dehydration, AMS after receiving last radiation treatment for squamous cell carcinoma of tonsil. Medical chart indicates 44 lbs weight loss (-20%) in last 90 days since starting treatment. BMI continues to indicate class 2 obesity. PMH: DM2. Most recent A1C: 7.3% indicating good glycemic control on current home meds (metformin 1000 mg BID, 22 u levemir BID) Currently NPO with G tube. G tube feedings prior to admit Osmolite 1.5 237 ml bolus QID providing total of 1422 kcal, 60 g protein, 720 ml free fluid. Estimated Needs: 3532-3446 kcal, 80-90 g protein, 2800 ml fluid NUTRITIONAL DIAGNOSIS: moderate malnutrition in view of 20% weight loss in last 90 days INTERVENTION: continue NPO status per MD order Recommend Osmolite 1.2 @ 50 cc /hour (total of 1200 ml) , flush 300 ml q 4 hours providing total of: 1440 kcal, 75 g protein, 2700 ml free fluid MONITORING AND EVALUATION: labs, weight Time Spent in Nutritional Counseling and Treatment: 20
[2022-01-07 11:22] VITALS: BP 118/73; PULSE 78; RESP 17; TEMP 36.4; O2SAT 95
--- NOTE | 2022-01-07 12:16 | PGE_ITS ---
Date of Service Date of service: 01/07/22 Time of Service: 10:00 Assessment and Plan Assessment and plan (1) Dehydration: Status: Acute Assessment and plan: will discontinue IVF now that feedings and free water tolerated Will continue tube feeding (2) Squamous cell carcinoma of tonsil: Status: Acute Assessment and plan: Undergoing tx @ [facility]; monitor pain levels, treat with IV pain medications Will continue hydromorphone drip and titrate as needed (3) Swallowing problem: Status: Acute Assessment and plan: S/P radiation; G-tube feedings until pain is resolved will continue G-tube feeding of Nutren 1.5/ 500 ml up to TID via PEG tube as conveyed by Patient, nutrition consulted with inhouse recommendations as his formula not available here. 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 no services anticipated I have independently examined patient and agree with documentation and assessment and plan discussed with DR Quevedo Subjective Subjective Patient reports: no new complaints, feels better (Reports inability to swallow), still having pain (half of yeaterday's level), voiding w/o difficulty, bowel movement and afebrile; denies diarrhea, nausea, vomiting or shortness of breath Exam Const General: cooperative, no acute distress and ill appearing [facility] Head: normocephalic and atraumatic Mouth: moist mucous membranes abnormal (erythematous and ulcers with slough to right sided posterior palate) and lip abnormal (opened blisters) Throat: abnormal tonsil (right sided exudate) Eyes General: appearance normal, both eyes and all related structures Neck Neck: anterior neck swelling, lymphadenopathy submandibular and submandibular swelling Chest Chest: normal inspection of the chest (right sided IVAD in place) Resp Effort & Inspection: normal respiratory effort, able to speak in complete sentences and no cough Cardio Rhythm: abnormal rhythm irregularly irregular Heart Sounds: S1 normal and S2 normal Pulses: radial pulses present and dorsalis pedis present GI Inspection: normal to inspection (PEG in place) General: No CVA tenderness Skin Lesions: lesion noted (erythematous skin to neck, neck fold in ant. lower with slough w/o bleeding) Neuro General: patient alert, patient awake, patient oriented x3 and no focal motor deficits Cognition: normal cognition Speech: speech normal Gait: normal gait (with cane) Extrem General: normal to inspection Psych Mental Status: mental status grossly normal Speech and Movement: speech and movement normal Mood: congruent mood Affect: normal affect Attitude: cooperative Objective Last Vital Signs Temp 97.5 F L 01/07/22 11:22 Pulse 78 01/07/22 11:22 Resp 17 01/07/22 11:22 BP 118/73 01/07/22 11:22 Pulse Ox 95 01/07/22 11:22 Laboratory Results - last 24 hr 01/06/22 01/07/22 15:15 06:35 Sodium 138 Potassium 4.1 Chloride 100 Carbon Dioxide 32.6 H Anion Gap 5.4 BUN 23 H Creatinine 0.8 Estimated GFR/1.73 m2 >= 60.00 Glucose 91 Calcium 8.9 Magnesium 1.6 L COVID-19 Source Nasal/Nares SARS-CoV-2 (PCR) Negative PAWSS Pt Consumed Any Amount of Alcohol Within the Last 30 days OR had positive KEARA Upon Admission: No Have you Been Recently Intoxicated or Drunk Within the Last 30 days?: No Have you Ever Experienced Previous Episodes of Alcohol Withdrawal?: No Have you ever Experienced Withdrawal Seizures?: No Have you ever Experienced Delirium Tremens(DT)s?: No Have you ever undergone Alcohol Rehabilitation Treatment (i.e, inpt ot outpatient treatment programs)?: No Have you ever Experienced Blackouts?: No Have you ever Combined Alcohol with other Downers within the last 90 days?: No Have you ever Combined Alcohol with any other Substance of Abuse during the last 90 days?: No Positive Blood Alcohol level on Presentation? [PCS.BAL]: No Evidence of Increased Autonomic Activity (i.e. HR>120, tremor, sweating, agitation, nausea)?: No Result: 0
[2022-01-07] MEDS: Insulin Aspart 300 UNITS/3 ML PEN SC (14:10)
[2022-01-07] MEDS: Magic Mouthwash 119 ML BTL 10 ML MM ×3 (14:46→20:30)
[2022-01-07 15:48] VITALS: BP 123/73; PULSE 77; RESP 20; TEMP 36.7; O2SAT 94
--- NOTE | 2022-01-07 17:45 | PDOC.CMIN ---
- If Service Date Differs Date of service: 01/07/22 Time of Service: 17:45 Care Management Initial Assess REASON FOR HOSPITALIZATION:: Intractable Pain PAST MEDICAL HISTORY/PAST SURGICAL HISTORY:: Medical History . Arthralgia. Back pain, acute. Bradycardia. Chondromalacia patellae of left knee. Chronic low back pain. Colon polyps. Depression. Diabetic peripheral neuropathy. Diverticulosis. DJD of right AC (acromioclavicular) joint. Essential tremor (11/21/14). Fatigue. GERD (gastroesophageal reflux disease). Headache. Cervical. Hip pain, left. History of tobacco use. HTN (hypertension). Hyperlipemia. Hypotension. Hypothyroidism. 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 Insect bite. Internal derangement of left knee. Lumbosacral neuritis. Neck pain on left side. Obesity. Osteoarthritis of left knee. Primary osteoarthritis of right hip. Prolonged depression. Psoriasis. Radicular syndrome of lower limbs. Resting tremor. Right rotator cuff tear. Injection under fluoroscopy: 11/04/18. Status post rotator cuff repair. DOS: 01/25/2019. Septic arthritis of knee. Septic joint. Shoulder pain, left. Shoulder pain, right. Trigeminy. URI, acute. Vertigo. Vitamin B12 deficiency. Surgical History . 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 History of total left knee replacement (10/02/20). Hx of total knee arthroplasty. Right. S/P cholecystectomy. S/P lumbar spine operation. x2. Status post right rotator cuff repair (~01/25/19). Repair of supraspinatus, distal clavicle excision, biceps tenotomy. Dr. Espinal. 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 Trochanteric bursitis, left hip. S/P debridement with IT band lengthenin08/12/2021 PREVIOUS FUNCTIONAL STATUS/SOCIAL/FAMILY SUPPORTS:: Arianna resides in [facility], his son and daughter reside locally and are supportive. CURRENT FUNCTIONAL STATUS:: Arianna is up independently. He is currently NPO with G tube, continues to have intractable pain. ADVANCE DIRECTIVES:: On file, [employer] as agent. Has patient been provided with info about the portal/API?: No Did the patient sign up for the portal?: No CODE STATUS:: Full Code INSURANCE COVERAGE / FINANCIAL ISSUES:: Medicare. [place] CURRENT HOME/COMMUNITY SERVICES/EQUIPMENT:: [facility]:: [facility] POTENTIAL DISCHARGE NEEDS:: Evaluations for increased services. PATIENT/FAMILY EDUCATION NEEDS:: Review of discharge instructions, discuss Ask Me [employer]. ANTICIPATED BARRIERS TO DISCHARGE:: None identified. TRANSPORTATION:: Via private vehicle with family. PLAN:: Anticipate Arianna will return home once his pain is controlled. He will follow up with his PCP and community providers, and transport via private vehicle with family. CM continues to follow.
[2022-01-07 19:40] VITALS: BP 131/78; PULSE 74; RESP 20; TEMP 36.4; O2SAT 97
[2022-01-07 23:25] VITALS: BP 141/60; PULSE 76; RESP 20; TEMP 36.5; O2SAT 98
[2022-01-08] VITALS (7 sets, daily range): BP systolic 112–135; BP diastolic 49–78; PULSE 43–88; RESP 16–20; TEMP 36.4–37.2; O2SAT 91–97
[2022-01-08] MEDS: Levothyroxine 125 MCG TAB 62.5 MCG UD (06:18)
[2022-01-08] MEDS: Sucralfate 1 GM TAB UD ×4 (08:19→22:09)
[2022-01-08] MEDS: Omeprazole 20 MG CAPCR 40 MG UD (08:19)
[2022-01-08] MEDS: Magic Mouthwash 119 ML BTL 10 ML MM ×4 (08:20→21:00)
[2022-01-08] MEDS: Silver sulfaDIAZINE 1% 25 GM TUBE TP ×2 (08:22→22:08)
[2022-01-08] MEDS: MAGNESIUM SULFATE 2 GM/50 ML BAG IVPB (08:22)
[2022-01-08] MEDS: Polyethylene Glycol 3350 17 GM PACKET UD ×2 (09:54→22:08)
[2022-01-08] MEDS: Docusate Sodium 100 MG/10 ML CUP UD ×3 (09:54→22:09)
--- NOTE | 2022-01-08 11:28 | W.PM.PROGNOT ---
Date of Service Date of service: 01/08/22 Time of Service: 11:28 Assessment and Plan Assessment and plan (1) Intractable pain: Status: Acute Assessment and plan: admitted for IV pain management. he was on a fentanyl patch at home with oxycodone for breakthrough pain and pain was not managed. he was placed on dilaudid infusion and has been titrated up from 0.2 mg/hr on admission to 0.4 mg/hr today and still reporting pain at 7. Will continue to titrate and when pain well managed will convert to patch and oral medications for outpatient management. (2) Dehydration: Status: Acute Assessment and plan: appears euvolemic after receiving IV fluids and now back on tube feed with free water Will continue tube feeding (3) Squamous cell carcinoma of tonsil: Status: Acute Assessment and plan: followed by oncology (4) Swallowing problem: Status: Acute Assessment and plan: S/P radiation; G-tube feedings until able to take PO will continue G-tube feeding as previously directed, we needed to swap to osmolite 1.2 as we do not have 1.5 in stock, nutrition consulted with inhouse recommendations as his formula not available here. 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 no services anticipated discussed with DR Quevedo Subjective Subjective Patient reports: still having pain, voiding w/o difficulty and afebrile; denies nausea or shortness of breath Interval history since last seen: brief episode of dizziness where he felt room spinning. no nausea headache or other symptoms. it resolved spontaneously with no intervention. his vital signs checked and were in normal limits and at patient baseline. Exam Const General: cooperative, no acute distress and ill appearing [facility] Head: normocephalic and atraumatic Mouth: moist mucous membranes abnormal (erythematous and ulcers with slough to right sided posterior palate) and lip abnormal (opened blisters) Throat: abnormal tonsil (right sided exudate) Eyes General: appearance normal, both eyes and all related structures Neck Neck: anterior neck swelling Chest Chest: normal inspection of the chest (right sided IVAD in place) Resp Effort & Inspection: normal respiratory effort, able to speak in complete sentences and no cough Cardio Heart Sounds: S1 normal and S2 normal GI Inspection: normal to inspection (PEG in place) Skin Lesions: lesion noted (erythematous skin to neck, neck fold in ant. lower with slough w/o bleeding) Neuro General: patient oriented x3 and no focal motor deficits Cognition: normal cognition Speech: speech normal Gait: normal gait (with cane) Extrem General: normal to inspection Psych Mental Status: mental status grossly normal Speech and Movement: speech and movement normal Mood: congruent mood Affect: normal affect Attitude: cooperative Objective Last Vital Signs Temp 36.7 C 01/08/22 10:01 Pulse 69 01/08/22 10:01 Resp 17 01/08/22 10:01 BP 128/69 01/08/22 10:01 Pulse Ox 96 01/08/22 10:01 PAWSS Pt Consumed Any Amount of Alcohol Within the Last 30 days OR had positive KEARA Upon Admission: No Have you Been Recently Intoxicated or Drunk Within the Last 30 days?: No Have you Ever Experienced Previous Episodes of Alcohol Withdrawal?: No Have you ever Experienced Withdrawal Seizures?: No Have you ever Experienced Delirium Tremens(DT)s?: No Have you ever undergone Alcohol Rehabilitation Treatment (i.e, inpt ot outpatient treatment programs)?: No Have you ever Experienced Blackouts?: No Have you ever Combined Alcohol with other Downers within the last 90 days?: No Have you ever Combined Alcohol with any other Substance of Abuse during the last 90 days?: No Positive Blood Alcohol level on Presentation? [PCS.BAL]: No Evidence of Increased Autonomic Activity (i.e. HR>120, tremor, sweating, agitation, nausea)?: No Result: 0
[2022-01-08] MEDS: Insulin Aspart 300 UNITS/3 ML PEN SC (17:00)
--- NOTE | 2022-01-08 17:28 | CMPROGNOTE_ITS ---
- If Service Date Differs Date of service: 01/08/22 Time of Service: 17:28 Care Management Progress Note S/O: Arianna continues to struggle to find relief, he is being closely monitored and treated. Hospitalist ordered inpatient stay at this time, CM continues to follow. A: 71 year old male admitted to [facility] 01/06/22, inpatient status 01/08/22 for intractable pain. P: Anticipate Arianna will return home once his pain is controlled with a resumption of home health services. He will follow up with his PCP and community providers, and transport via private vehicle with family. CM continues to follow.
[2022-01-08] MEDS: fentaNYL 75 MCG PATCH TD (22:09)
[2022-01-09 03:00] VITALS: BP 125/56; PULSE 88; RESP 18; TEMP 36.7; O2SAT 96
[2022-01-09] MEDS: Levothyroxine 125 MCG TAB 62.5 MCG UD (06:30)
[2022-01-09 07:25] VITALS: BP 149/77; PULSE 69; RESP 19; TEMP 36.4; O2SAT 96
[2022-01-09] MEDS: Sucralfate 1 GM TAB UD ×2 (07:54→12:06)
[2022-01-09] MEDS: Docusate Sodium 100 MG/10 ML CUP UD (07:54)
[2022-01-09] MEDS: Silver sulfaDIAZINE 1% 25 GM TUBE TP (07:54)
[2022-01-09] MEDS: Omeprazole 20 MG CAPCR 40 MG UD (07:54)
[2022-01-09] MEDS: Magic Mouthwash 119 ML BTL 10 ML MM ×2 (07:55→12:49)
[2022-01-09] MEDS: MAGNESIUM SULFATE 2 GM/50 ML BAG IVPB (07:55)
[2022-01-09] MEDS: Normal Saline Flush 10 ML SYR IVP ×2 (07:56→12:04)
--- NOTE | 2022-01-09 08:42 | CMPROGNOTE_ITS ---
- If Service Date Differs Date of service: 01/09/22 Time of Service: 08:42 Care Management Progress Note S/O: Arianna continues to struggle to find relief, he is being closely monitored and treated. Hospitalist ordered inpatient stay at this time, as well as Palliative Care consult to determine goals of care. CM continues to follow. A: 71 year old male admitted to [facility] 01/06/22, inpatient status 01/08/22 for intractable pain. P: Anticipate Arianna will return home once his pain is controlled with a resumption of home health services. He will follow up with his PCP and community providers, and transport via private vehicle with family. CM continues to follow.
[2022-01-09 09:32] LABS: Anion Gap 4.1 mmol/L (3-11); BUN 18 mg/dL (7-18); CO2 30.9 mmol/L (21.0-32.0); CREATININE 0.8 mg/dL (0.70-1.30); Calcium 8.5 mg/dL (8.5-10.1); Chloride 96 mmol/L (98-107); Glucose 230 mg/dL (74-106); Magnesium 1.5 mg/dL (1.8-2.4); Potassium 4.3 mmol/L (3.5-5.1); Sodium 131 mmol/L (136-145)
[2022-01-09 11:06] VITALS: BP 135/64; PULSE 90; RESP 18; TEMP 36.1; O2SAT 95
--- NOTE | 2022-01-09 11:16 | DSE_ITS ---
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 He began chemoradiation , weekly cisplatin x 2 - he completed his last radiation 12/31/2021. He return to [facility] [place] 01/01 and 01/03 for hydration.? He did not go 01/02 secondary to increased pain.? His fentanyl patch was increased to 50 mcg.? He continued to take oxycodone 5 mg every 3 hours via G-tube.? He is currently taking nothing by mouth due to pain.? He became quite confused, disoriented and went to the ED.? It was determined it was from the increase in opiods; fentanyl was decreased back to 25 mcg. There was an issue getting the Rx and he did not have the fentanyl patch, taking only oxycodone.? He was no longer confused.? He returned to [facility] [place] 01/06 for hydration and reported his mouth was on fire and the pain was intolerable.? He reported the pain is on the left neck area and inside his mouth and throat 10/10. Dr Matthews, [facility] [place], sent him here for obs adm to treat pain.? He was put on a hydromorphone drip with acceptable pain relief. We put on a 75 mcg fentanyl patch and after ample time discontinued the drip. He states his pain is controlled and he feels well enough to go home. He will have home health nursing care resumed for medication teaching, management, wound care and g-tube care and education Reviewed with Dr Quevedo and Dr Matthews. Home Meds and New Rx's Prescriptions: New fluoxetine 20 mg/5 mL (4 mg/mL) Solution 40 mg UD DAILY Qty: 120 0RF sucralfate 1 gram Tablet 1 g UD AC & HS Qty: 30 0RF Continued Levemir FlexTouch U-100 Insuln 100 unit/mL (3 mL) insulin pen 22 unit SC BID 0RF Label Comments: 08/23/19 Pt states taking 44 units bid, sugar running 170's w/hip pain. PG amoxicillin 500 mg tablet 2,000 mg feeding tube .PROIR TO DENTAL 0RF cyanocobalamin (vitamin B-12) 1,000 mcg Tablet 1,000 mcg feeding tube DAILY 0RF meclizine 25 mg Tablet 25 mg feeding tube Q6H PRN0RF albuterol sulfate 8.5 GM HFA aerosol inhaler 2 puff Inhalation Q4H 0RF levothyroxine 125 mcg capsule 50 mcg PO DAILY 0RF omeprazole 40 mg capsule,delayed release(DR/EC) 40 mg feeding tube DAILY 0RF vitamin E 200 UNIT capsule 400 unit feeding tube DAILY 0RF Label Comments: PT. TAKES 400 U metformin 500 MG tablet extended release 24 hr 1,000 mg PO BID 0RF simvastatin 10 mg Tablet 10 mg feeding tube DAILY 0RF insulin aspart U-100 [Novolog Flexpen U-100 Insulin] 100 unit/mL (3 mL) insulin pen 0 unit SUBCUT DAILY 0RF Rx Instructions: takes total of 55 units daily between sliding scale and carb coverage bisoprolol fumarate 10 MG tablet 5 mg feeding tube DAILY 0RF docusate sodium 50 mg/5 mL Liquid 50 mg feeding tube PRN PRN0RF sennosides [senna] 8.8 mg/5 mL Syrup 8.8 mg feeding tube PRN PRN0RF prochlorperazine maleate 10 mg Tablet 10 mg feeding tube HS 0RF lisinopril 10 MG tablet 5 mg feeding tube DAILY 0RF acetaminophen 500 mg tablet 500 mg PO Q6H PRN (Reason: pain) Qty: 60 2RF oxycodone 5 mg/5 mL solution 5 mg feeding tube Q4H PRN PRN0RF Label Comments: GIVE 5ML PER GIVE TUBE EVERY 3 HOURS NEEDED FOR PAIN oxycodone [OxyContin] 10 mg tablet,oral only,ext.rel.12 hr 10 mg PO TID 0RF Label Comments: TAKE ONE TABLET BY MOUTH EVERY 12 HOURS FOR PAIN silver sulfadiazine 1 % cream 1 applic TOPICAL BID 0RF lorazepam 0.5 mg tablet 0.5 mg feeding tube PRN PRN0RF Label Comments: TAKE ONE TABLET BY MOUTH 1/2 HOUR PRIOR TO RADIATION THERAPY aspirin 81 mg tablet,delayed release (DR/EC) 81 mg feeding tube DAILY 0RF No Action fluoxetine [Prozac] 20 MG capsule 40 mg feeding tube DAILY 0RF Discharge Instructions Instructions: Pain Management (DC), Acute Wound Care (DC) Additional Instructions: Follow up with Dr Matthews @ [facility] next week. Use magic mouthwash - prescription sent to [facility]; continue fentanyl patch, use oxycodone for breakthrough pain; continue application of silvadene cream to neck Stand Alone Forms: Nursing Discharge Form Referrals: Vasile Matthews [ CONSULTING PHYSICIAN] - Landy Davila [NURSE PRACTITIONER] - 01/23/22 10:45 am Activity:: Activity as Tolerated Equipment/Supplies:: No Equipment Needed Diet:: continue prior to hospitalization per G-tube Discharge Orders Discharge Orders: Discharge Order (Routine); Ordered 01/09/22 Ordered By: Hodan Dolan DS: Summary Time Spent with Patient providing and/or coordinating discharge services: Greater than 30 minutes Status at Discharge Functional status at discharge: independent ambulation Overall status at discharge: patient is progressing back to baseline Mental Status: mental status grossly normal Speech and Movement: speech and movement normal Mood: congruent mood Affect: normal affect Exam Psych Mental Status: mental status grossly normal Speech and Movement: speech and movement normal Mood: congruent mood Affect: normal affect DS: Data Vitals/I&O Vitals and I&O: Vital Signs Temperature 36.1 C L 01/09/22 11:06 Temperature Source Tympanic 01/09/22 11:06 Pulse 90 01/09/22 11:06 Pulse Rhythm Regular 01/08/22 22:47 Respiratory Rate 18 01/09/22 11:06 Respiratory Effort 01/08/22 22:47 Respiratory Depth Normal 01/08/22 22:47 Respiratory Pattern Normal 01/08/22 22:47 Blood Pressure 135/64 01/09/22 11:06 Pulse Oximetry 95 01/09/22 11:06 Oxygen Delivery Method Room Air 01/09/22 11:06 Oxygen Flow Rate 0 01/09/22 11:06 Pain Level 0 01/09/22 11:06 Comment 01/09/22 07:25 Intake & Output 01/08/22 01/08/22 01/09/22 11:59 23:59 11:59 Intake Total 570.667 / 583.467 12.8 / 583.467 42.792 / 42.792 Output Total 750 / 1500 750 / 1500 800 / 800 Balance -179.333 / -916.533 -737.2 / -916.533 -757.208 / -757.208 Weight 97.7 kg 98.1 kg Intake: IV 70.667 / 83.467 12.8 / 83.467 42.792 / 42.792 Intake, Tube Feeding Amount 500 / 500 Output: Urine 750 / 1500 750 / 1500 800 / 800 Output, Residual 0 / 0 Other: Urine Color Yellow Straw Yellow Straw Urine Appearance Clear Clear Clear Urine Odor Normal Normal Normal Comment pT has not voided. 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 (Acute) Hypomagnesemia (Acute) Dehydration (Acute) Altered mental status (Acute) Squamous cell carcinoma of tonsil (Acute) Cervical lymphadenopathy (Acute) Tonsillar mass (Acute) Sleep apnea (Acute) Unintentional weight loss (Acute) Swallowing problem (Acute) Abnormal laboratory test (Acute) Screening for colon cancer (Acute) Chest pain (Acute) Asthma (Chronic) Medical History Arthralgia Back pain, acute Bradycardia Chondromalacia patellae of left knee Chronic low back pain Colon polyps Depression Diabetic peripheral neuropathy Diverticulosis DJD of right AC (acromioclavicular) joint Essential tremor (11/21/14) Fatigue GERD (gastroesophageal reflux disease) Headache Cervical Hip pain, left History of tobacco use HTN (hypertension) Hyperlipemia Hypotension Hypothyroidism 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) Insect bite Internal derangement of left knee Lumbosacral neuritis Neck pain on left side Obesity Osteoarthritis of left knee Primary osteoarthritis of right hip Prolonged depression Psoriasis Radicular syndrome of lower limbs Resting tremor Right rotator cuff tear Injection under fluoroscopy: 11/04/18 Status post rotator cuff repair DOS: 01/25/2019 Septic arthritis of knee Septic joint Shoulder pain, left Shoulder pain, right Trigeminy URI, acute Vertigo Vitamin B12 deficiency Surgical History 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 Trochanteric bursitis, left hip S/P debridement with IT band lengthenin08/12/2021 Family History Father Heart disease Brother Tremor Son Seizure Mother Osteoarthritis Social History Smoking/Tobacco Use Status: Former Tobacco Use Quit Date: 09/07/79 Pack-years: 1 Smoking risk assessment performed?: Yes Alcohol Intake: never Drug use: Never Substance use type: does not use Household members: children Housing: house Number of Children: 2 current occupation: Retired Current gender identity: male What type of physical activity do you participate in: independent ambulation Do you feel safe at home: Yes Do you feel safe in your relationship?: Yes
[2022-01-09] MEDS: Heparin 500 UNITS/5 ML SYRINGE IVP (12:04)
--- NOTE | 2022-01-09 13:02 | PDOC.CMDIS ---
- If Service Date Differs Date of service: 01/09/22 Time of Service: 13:02 LACE Index Scoring Tool - Questions: Length of Stay (in days): 3 Acuity (Admit via E.D.?): Yes Comorbidities: Any Tumor E.D. Visits: 1 - Answers: Total Score: 9 Risk of Readmission: Low Risk Care Management Discharge Reason for Hospitalization: Intractable Pain Discharge Plan: Arianna will return home with a resumption of home health services and order for outpatient follow up with Palliative Care. He will follow up with his PCP and community providers, and transport via private vehicle with family. Patient/Family Education Needs: Review discharge instructions, discuss Ask Me Three.
--- NOTE | 2022-01-13 13:54 | W.NUTCONSULT ---
Date of service: 01/13/22 Time of Service: 13:55 Nutritional Consult ASSESSMENT: 71 year old male readmitted after a coupld of days. s/p treatment for tonsil cancer. G tube in place. Medical chart indicates 44 lbs weight loss (-20%) in last 90 days since starting treatment.? BMI continues to indicate class 2 obesity.? PMH: DM2.? Most recent A1C: 7.3% indicating good glycemic control on current home meds (metformin 1000 mg BID, 22 u levemir BID) Currently NPO with G tube.? G tube feedings prior to admit? Osmolite 1.5? 237 ml bolus QID providing total of 1422 kcal, 60 g protein, 720 ml free fluid.? Estimated Needs:? 5372-1356 kcal, 80-90 g protein, 2688-9963 ml fluid NUTRITIONAL DIAGNOSIS: moderate malnutrition in view of 20% weight loss in last 90 days INTERVENTION: continue NPO status per MD order Recommend Osmolite? 1.2? 5 boluses daily of 237 ml Osmolite 1.2 , flush 250 ml q 4 hours? providing total of:? 1440 kcal, 75 g protein, 2400 ml free fluid MONITORING AND EVALUATION: labs, weight Time Spent in Nutritional Counseling and Treatment: 0
== END 2022-01-09 13:25 | disposition home health service (06) | DRG 155 ==
PROVIDERS: Nurse Practitioner Family; Admitting Provider Internal Medicine; PCP Family Medicine; Visit Provider Internal Medicine
DX: R07.0 Pain in throat (principal); E44.0 Moderate protein-calorie malnutrition; T66.XXXA Radiation sickness, unspecified, initial encounter; T45.1X5A Adverse effect of antineoplastic and immunosuppressive drugs, initial encounter; E86.0 Dehydration; C09.9 Malignant neoplasm of tonsil, unspecified; E83.42 Hypomagnesemia; L98.499 Non-pressure chronic ulcer of skin of other sites with unspecified severity; G47.30 Sleep apnea, unspecified; J45.909 Unspecified asthma, uncomplicated; G89.29 Other chronic pain; M54.50 Low back pain, unspecified; E11.42 Type 2 diabetes mellitus with diabetic polyneuropathy; G25.0 Essential tremor; E53.8 Deficiency of other specified B group vitamins; M54.17 Radiculopathy, lumbosacral region; F32.9 Major depressive disorder, single episode, unspecified; Z96.642 Presence of left artificial hip joint; Z96.653 Presence of artificial knee joint, bilateral; Z79.4 Long term (current) use of insulin; Z79.84 Long term (current) use of oral hypoglycemic drugs; Z93.1 Gastrostomy status; Y84.2 Radiological procedure and radiotherapy as the cause of abnormal reaction of the patient, or of later complication, without mention of misadventure at the time of the procedure; R13.10 Dysphagia, unspecified; R63.4 Abnormal weight loss; Z87.891 Personal history of nicotine dependence
CPT/HCPCS: 36415; 36416; 36591; 80048; 80053; 82962; 87635; 96365; 96366; 96372; 96376; 83735; 85025; 99219; 99226; 99233; 99239; G0378; J1170; J3490

== ENCOUNTER 2022-01-13 09:54 | Observation (INO) | payer MEDICARE, OTHER, SELFPAY ==
[2022-01-13] VITALS (17 sets, daily range): BP systolic 102–145; BP diastolic 55–102; PULSE 59–77; RESP 12–23; TEMP 36.2–36.6; O2SAT 96–100
--- NOTE | 2022-01-13 10:00 | DI.RAD_ITS ---
Exam(s) XR PORTABLE CHEST AP EXAM: XR PORTABLE CHEST AP CLINICAL HISTORY: SOB TECHNIQUE: 2D digital imaging was performed. COMPARISON: CR CHEST 2 VIEWS PA,LAT from 07/13/2014 FINDINGS: A port is now seen over the right chest with the tip in the lower SVC/right atrium. LUNGS: Not well inflated but clear. No pleural abnormality seen. HEART: Normal. AORTA: Normal. BONES: Unremarkable for age. Soft tissues: Unremarkable. IMPRESSION: No acute findings. DATA REPOSITORY: RADIATION DOSE DELIVERED:
--- NOTE | 2022-01-13 10:11 | ED.GENADUL_ITS ---
Discharge Plan Disposition Patient Disposition: [facility] INPATIENT Condition: Fair Discharge Details Chief Complaint: Diabetes Clinical Impression: Hypoglycemia, Hypomagnesemia Admit Date/Time: 01/13/22 13:42 Admit Provider: Alison Scott Attending Provider: Alison Scott Primary Care Provider: Beatriz Cotton V ED Provider: Jessica Colvin Discharge Instructions Activity:: Activity as Tolerated Equipment/Supplies:: No Equipment Needed Diet:: Resume home diet Discharge Orders Discharge Orders: Discharge Order (Routine); Ordered 01/17/22 Ordered By: Jeremy Caldera Discharge Data Discharge Date/Time-TO BE ENTERED AT DEPARTURE: 01/13/22 15:00 Medical Decision Making Patient is a pleasant 71-year-old gentleman accompanied by his son, with chief complaint of low glucose. Patient is known diabetic, has not received any of his diabetic medications as of yet today. Patient has throat cancer, has not taken anything p.o. This morning, his son checked his glucose and was found it to be low. At the direction of the cancer center, son gave orange juice th rough G-tube. This brought up into the 40s. Son states that the patient was clearly confused and slightly tremulous. Patient does not appear confused at this time but continues to feel weak and tremulous. Glucose currently 53. Patient last took his insulin last night. Does not believe any medication errors were made. As he only receives nutrition thorugh the G-tube, patient and son report no change in diet. They state that he has been on the same caloric regimen for several months with no episodes of hypoglycemia. Son shows record of glucose yesterday in the mid to high 100. Patient reports slight cough, this sounds to be chronic in nature. He throat cancer which has lead him to being unable to tolerate anything PO. He is currrently undergoing chemo and radiation for this. No fevers/chills. No pain, aside from chronic and unchanged pain in the neck. Denies change in bowel habits, no dysurea, ACEVEDO, abdominal pain. On exam, patient appears chronically ill. Have notable erythema around his neck consistent with history of radiation therapy to this area. He is handling secretions. Lungs are clear, normal cardiac exam. Abdominal exam shows nontender abdomen. G-tube. Appropriately placed no surrounding erythema. No tenderness. No lower extremity edema, 2+ pulses. Neuro exam is intact. Well patient had initially appeared confused to the son, he is alert and oriented without any evidence of confusion at this time.He does have a slight tremor, more pronounced in the left hand which he reports is baseline for the patient. Primary concern at this time is why the patient continues to be hypoglycemic. While medication mismanagement may be the cause, recent quite organized and I do feel that is appropriate to rule out underlying pathology leading to his hyperglycemia as a source. Patient is certainly for aspiration and considered pneumonia, UTI versus other infectious etiology. Will obtain chest x-ray. Testing the indication at this time is patient's head, confusion seems to have subsided with the improvement of his glucose and he is not having any focal abnormalities or headache time. We will give amp of D50 and plan to begin the patient on D5 drip. FINDINGS: ?A port is now seen over the right chest with the tip in the lower SVC/right atrium. LUNGS: Not well inflated but clear.? No pleural abnormality seen. HEART: Normal. AORTA: Normal. BONES: Unremarkable for age.? Soft tissues: Unremarkable. IMPRESSION: No acute? findings. Glucose rechecked and found to be 165. We will hold the drip temporarily and see if the patient is able to maintain his glucose. Labs reviewed. No leukocytosis. Patient is anemic with hemoglobin of 11.3. Patient denies any active bleeding issues and has been anemic historically. This is unchanged from baseline. Sodium slightly low at 132, this is baseline for the patient. BUN of 30, creatinine and GFR within normal limits. Glucose is now up to 180 on CMP. AST is elevated at 61 which is abnormal for the patient. His magnesium was slightly low at 1.5, he has been low historically but will replenish this here. Troponin within normal limits. Urine without indication of infection. Patient COVID-negative. Glucose has dropped once again to 62. The D5 drip was reinitiated. Unable to identify cause of the hypoglycemia. As a not noting any evidence to suggest infectious etiology, concern for potential medication mismanagement. Feel that admission for continued observation and management is appropriate. Discussed this plan with the patient and his son who are in agreement. Consulted with Dr. Scott who agrees to the patient has inpatient observation for hypoglycemia. HPI General Date/Time Provider Initiated Documentation: 01/13/22 10:03 . Limitations to Documentation: no limitations . Information obtained by: patient, family and RN notes reviewed . History of Present Illness 71 year old M presents to the emergency department with the chief complaint of hypoglycemia, confusion, feels shaky , described as moderate (feeling of confusion improving), Patient started experiencing this hour(s) and it has been constant. Eating improves symptom(s), (son gave OJ through G tube) Other factors that worsen symptoms (unknown what occurred causing the hypoglycemia) . Patient notes confusion (improving), cough (associated with cancer), loss of appetite (patient unable to take in anything PO, only through G tube) and weakness; denies chest pain, diaphoresis, fever/chills, nausea/vomiting, rash, shortness of breath and syncope. Patient did receive the following treatments prior to arrival, other (orange juice) Related Data Home Medications Medication Instructions Recorded Confirmed metformin 500 mg tablet,extended 500 mg PO BID 04/07/14 01/13/22 release 24 hr albuterol sulfate 90 mcg/actuation 2 puff inhalation Q4H 10/16/14 01/13/22 aerosol inhaler amoxicillin 500 mg tablet 2,000 mg feeding tube .PROIR TO 01/04/19 01/13/22 DENTAL insulin detemir U-100 100 unit/mL 22 unit subcut BID 01/04/19 01/13/22 (3 mL) subcutaneous pen (Levemir FlexTouch U-100 Insulin) meclizine 25 mg tablet 25 mg feeding tube Q6H PRN 06/28/20 01/13/22 insulin aspart U-100 100 unit/mL 0 unit subcut DAILY 09/04/20 01/13/22 (3 mL) subcutaneous pen (Novolog Flexpen U-100 Insulin aspart) levothyroxine 125 mcg capsule 62.5 mcg PO DAILY 09/10/21 01/13/22 omeprazole 40 mg capsule,delayed 40 mg feeding tube QPM 09/10/21 01/13/22 release aspirin 81 mg tablet,delayed 81 mg feeding tube DAILY 01/02/22 01/13/22 release lorazepam 0.5 mg tablet 0.5 mg feeding tube PRN PRN 01/02/22 01/13/22 oxycodone 5 mg/5 mL oral solution 5 mg feeding tube Q4H PRN PRN 01/02/22 01/13/22 bisoprolol fumarate 10 mg tablet 5 mg feeding tube DAILY 01/06/22 01/13/22 docusate sodium 50 mg/5 mL oral 50 mg feeding tube PRN PRN 01/06/22 01/13/22 liquid prochlorperazine maleate 10 mg 10 mg feeding tube HS 01/06/22 01/13/22 tablet sennosides 8.8 mg/5 mL oral syrup 8.8 mg feeding tube PRN PRN 01/06/22 01/13/22 (senna) naloxone 4 mg/actuation nasal 1 spray intranasal Q2-3M PRN #1 ea 01/09/2205/29 spray (Narcan) diphenhydramine 25 30 ml HS 01/13/22 01/13/22 mg-acetaminophen 500 mg/15 mL oral solution fluoxetine 20 mg/5 mL (4 mg/mL) 40 mg UD DAILY 01/13/22 01/13/22 oral solution Previous Rx's Medication Instructions Recorded naloxone 4 mg/actuation nasal 1 spray intranasal Q2-3M PRN #1 ea 01/09/22 spray (Narcan) Allergies Allergy/AdvReac Type Severity Reaction Status Date / Time ceftriaxone Allergy Severe ANAPHYLAXIS Verified 01/13/22 11:26 Cephalosporins Allergy Severe Anaphylaxsi Verified 01/13/22 11:26 s ciprofloxacin AdvReac Dizziness/L Verified 01/13/22 11:26 ightheade fentanyl AdvReac Agitation, Unverified 01/15/22 10:25 confusion meperidine HCl [From Demerol] AdvReac vomiting Verified 01/13/22 11:26 morphine AdvReac vomiting Verified 01/13/22 11:26 General CASIMIRO: 2 Review of Systems Constitutional Constitutional: Reports as per HPI, Denies chills, Denies fever(s) and Denies headache(s) Eyes Eyes: Denies change in vision ENT Ears, Nose, Mouth, and Throat: Denies dizziness and Denies headache(s) Cardiovascular Cardiovascular: Reports as per HPI and Denies dyspnea Respiratory Respiratory: Reports as per HPI and Denies dyspnea Gastrointestinal Gastrointestinal: Reports as per HPI, Denies abdominal pain, Denies diarrhea, Denies nausea and Denies vomiting Genitourinary Genitourinary: Denies system reviewed and no additional complaints, except as documented (denies change in urinary habits) Musculoskeletal Musculoskeletal: Reports as per HPI and Denies back pain Integumentary/Breasts Skin/Breast: Reports as per HPI and Denies rash Neurologic Neurologic: Reports as per HPI, Denies dizziness and Denies headache(s) PFSH All Active Problems (Updated 01/20/22 @ 08:26 by MEGAN Santiago) Hypoglycemia (Acute) Hypomagnesemia (Acute) Dysphagia (Chronic) 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 (Acute) Altered mental status (Acute) Squamous cell carcinoma of tonsil (Acute) Cervical lymphadenopathy (Acute) Tonsillar mass (Acute) Sleep apnea (Acute) Unintentional weight loss (Acute) Swallowing problem (Acute) Abnormal laboratory test (Acute) Screening for colon cancer (Acute) Chest pain (Acute) Asthma (Chronic) Medical History Arthralgia Back pain, acute Bradycardia Chondromalacia patellae of left knee Chronic low back pain Colon polyps Dehydration Depression Diabetic peripheral neuropathy Diverticulosis DJD of right AC (acromioclavicular) joint Essential tremor (11/21/14) Fatigue GERD (gastroesophageal reflux disease) Headache Cervical Hip pain, left History of tobacco use HTN (hypertension) Hyperlipemia Hypomagnesemia Hypotension Hypothyroidism 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) Insect bite Internal derangement of left knee Lumbosacral neuritis Neck pain on left side Obesity Osteoarthritis of left knee Primary osteoarthritis of right hip Prolonged depression Psoriasis Radicular syndrome of lower limbs Resting tremor Right rotator cuff tear Injection under fluoroscopy: 11/04/18 Status post rotator cuff repair DOS: 01/25/2019 Septic arthritis of knee Septic joint Shoulder pain, left Shoulder pain, right Trigeminy URI, acute Vertigo Vitamin B12 deficiency Surgical History 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 Trochanteric bursitis, left hip S/P debridement with IT band lengthenin08/12/2021 Family History Father Heart disease Brother Tremor Son Seizure Mother Osteoarthritis Social History Smoking/Tobacco Use Status: Former Tobacco Use Quit Date: 09/07/79 Pack-years: 1 Smoking risk assessment performed?: Yes Alcohol Intake: never Drug use: Never Substance use type: does not use Household members: children Housing: house Number of Children: 2 current occupation: Retired Current gender identity: male What type of physical activity do you participate in: independent ambulation Do you feel safe at home: Yes Do you feel safe in your relationship?: Yes Exam Const General: cooperative, comfortable, no acute distress, well developed and ill appearing chronically Nutritional Appearance: well nourished and overweight Orientation: alert, awake and oriented x3 HENMT Head: normal to inspection Ears: hearing grossly normal bilaterally Mouth: moist mucous membranes Neck Neck: other (erythematous ring around neck associated with radiation) Chest Chest: normal inspection of the chest, normal palpation of entire chest wall and no crepitus Resp Effort & Inspection: normal respiratory effort, able to speak in complete sentences and no respiratory distress Auscultation: clear to auscultation bilaterally, no rales, no rhonchi and no wheezes Cardio Rate: regular rate Rhythm: regular rhythm Heart Sounds: S1 normal and S2 normal GI Inspection: normal to inspection, no edema, non-distended and other (G tube in place, no surrounding erythema) Palpation: soft, no hepatosplenomegaly, not firm, no guarding, not rigid and nontender Auscultation: normal bowel sounds Back/Spine/Pelvis Back: no CVA tenderness Thoracic/Lumbar Spine: thoracic and lumbar spine normal to inspection Skin General skin exam: erythema (around neck, chronic associated with radiation changes) Neuro General: patient alert, patient awake and patient oriented x3 Cranial Nerves: CN's II-XI intact bilaterally Cognition: normal cognition Speech: speech normal Gait: normal gait Motor: muscle tone normal throughout, strength 5/5 throughout, no pronator drift, no movement abnormalities noted and no fasciculations Coordination: [id number] test normal Extrem General: normal to inspection, capillary refill normal, no pedal edema, no calf tenderness and normal gait Psych Appearance: grossly normal and well kempt Mental Status: mental status grossly normal Speech and Movement: speech and movement normal
[2022-01-13] MEDS: Dextrose 50%-Water 25 GM/50 ML SYR (10:55)
--- NOTE | 2022-01-13 11:27 | NUR.NOTE ---
Attempted x1 powerport access. No blood return upon access. Port deaccessed and PIV placed. jamari
--- NOTE | 2022-01-13 11:29 | NUR.NOTE ---
Pt has power port. [facility] for details
[2022-01-13 11:38] LABS: Source Nasal/Nares
--- NOTE | 2022-01-13 11:39 | NUR.NOTE ---
Nursing Note: Power injectable port: single lumen 8FR Mini Lot#[id number] Per [facility]
[2022-01-13 11:42] LABS: Abs Immature Grans 0.05 10^3/uL (0.0-0.06); Absolute Basophil Count 0.03 10^3/uL (0.0-0.2); Absolute Eosinophil Count 0.09 10^3/uL (0.0-0.7); Absolute Lymphocyte Count 0.22 10^3/uL (1.2-3.4); Absolute Monocyte Count 0.76 10^3/uL (0.1-0.8); Absolute Neutrophil Count 8.98 10^3/uL (1.2-6.7); Basophils % 0.3; Eosinophils % 0.9; HGB 11.3 g/dL (13.5-17.5); Immature Grans % 0.5; Lymphocytes % 2.2; MCH 30.1 pg (27.0-33.0); MCHC 31.4 % (32.0-36.0); MCV 96 fL (80-95); MPV 9.4 fL (8.0-11.0); Monocytes % 7.5; Neutrophils % 88.6; Platelet Count 435 10^3/uL (130-400); RBC 3.76 10^6/uL (4.36-5.78); RDW 16.1 % (11.8-14.1); RDW-SD 56.5 fL; WBC 10.13 10^3/uL (4.4-10.8)
[2022-01-13 11:55] LABS: ALT 29 U/L (16-63); AST 51 U/L (15-37); Albumin 2.3 g/dL (3.4-5.0); Alkaline Phosphatase 68 U/L (46-116); Anion Gap 3.5 mmol/L (3-11); BUN 30 mg/dL (7-18); Bilirubin, Total 0.3 mg/dL (0.2-1.0); CO2 32.5 mmol/L (21.0-32.0); CREATININE 0.9 mg/dL (0.70-1.30); Calcium 8.4 mg/dL (8.5-10.1); Chloride 96 mmol/L (98-107); Glucose 180 mg/dL (74-106); Magnesium 1.5 mg/dL (1.8-2.4); Potassium 4.3 mmol/L (3.5-5.1); Sodium 132 mmol/L (136-145); Total Protein 6.2 g/dL (6.4-8.2); Troponin I < 50 ng/L (<or=60)
[2022-01-13 12:30] LABS: COVID-19 PCR Negative (Negative)
[2022-01-13] MEDS: MAGNESIUM SULFATE 1 GM/100 ML BAG IVPB (12:46)
[2022-01-13] MEDS: DEXTROSE 5%-0.45% SALINE 1,000 ML 150 ML IV ×2 (12:52→19:33)
[2022-01-13 13:55] LABS: Bilirubin Negative (Negative); Blood Negative (Negative); Clarity Clear (Clear); Glucose Negative (Negative); Ketones Negative (Negative); Leukocyte Esterase Negative (Negative); Nitrite Negative (Negative); Specific Gravity 1.025 (1.005-1.025); Urobilinogen 0.2 EU/dL (Up TO 0.2); pH 5.5 (5-8)
[2022-01-13] MEDS: Normal Saline 1,000 ML 500 ML IV (14:04)
[2022-01-13 14:59] LABS: Troponin I < 50 ng/L (<or=60)
--- NOTE | 2022-01-13 16:28 | W.PM.HP.N ---
Date of service: 01/13/22 Time of Service: 16:28 Assessment and Plan Assessment and plan (1) Hypoglycemia: Status: Acute Assessment and plan: Etiology: accidental medication error vs triggered by an acute process, such as infection, in which case the infusaport infection needs to be ruled out. Will continue D5 containing fluids until his BGs are consistently above 140. Obtain blood cultures from infusaport and peripherally. Hold long acting insulin tonight. (2) Squamous cell carcinoma of tonsil: Status: Acute Assessment and plan: Follows for chemo/XRT at [facility]. Continue TFs. (3) IDDM (insulin dependent diabetes mellitus): Status: Chronic Assessment and plan: Hold home insulin - will rely on SSI only tonight, given that we are still battling hypoglycemia. (4) Dysphagia: Status: Chronic Assessment and plan: Continue tube feeding (5) DVT prophylaxis: Status: Acute Assessment and plan: SC enoxaparin (6) Discharge planning issues: Status: Acute Assessment and plan: Full code as confirmed with the patient and verified in his advanced directives. Anticipate discharge home tomorrow unless proven to have sepsis or hypoglycemia remains refractory. History of Present Illness History of Present Illness Chief Complaint: Hypoglycemia Narrative: Mr Arevalo is a 71 year old male with h/o head and neck ca on chemo/XRT with dysphagia s/p PEG tube, as well as h/o IDDM2 and sleep apnea, who was brought to [facility] ED today after having a reading of low on his glucometer. The patient was found by the son sleeping in a recliner and could not be woken up. He was given orange juice via his PEG tube by his brother with BGs coming up to 40. IN the ER, his BG was 55 and went up to 165 with D50 bolus. The patient was initiated on D5 containing fluids. Observation on hospitalist service was requested. The reason for this hypoglycemia was not clear in the ED workup. When I came to see the patient, he stated that his tremulousness is baseline. He gives himself his own insulin and thinks there is a chance he accidentally dosed himself twice last night. He states that his intake (per PEG) has been consistent. He has an infusaport - he is not sure when the skin around it got red. He denies fevers, chills, chest pain, shortness of breath, GI sx. 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 (Acute) Altered mental status (Acute) Squamous cell carcinoma of tonsil (Acute) Cervical lymphadenopathy (Acute) Tonsillar mass (Acute) Sleep apnea (Acute) Unintentional weight loss (Acute) Swallowing problem (Acute) Abnormal laboratory test (Acute) Screening for colon cancer (Acute) Chest pain (Acute) Asthma (Chronic) Medical History Arthralgia Back pain, acute Bradycardia Chondromalacia patellae of left knee Chronic low back pain Colon polyps Depression Diabetic peripheral neuropathy Diverticulosis DJD of right AC (acromioclavicular) joint Essential tremor (11/21/14) Fatigue GERD (gastroesophageal reflux disease) Headache Cervical Hip pain, left History of tobacco use HTN (hypertension) Hyperlipemia Hypotension Hypothyroidism 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) Insect bite Internal derangement of left knee Lumbosacral neuritis Neck pain on left side Obesity Osteoarthritis of left knee Primary osteoarthritis of right hip Prolonged depression Psoriasis Radicular syndrome of lower limbs Resting tremor Right rotator cuff tear Injection under fluoroscopy: 11/04/18 Status post rotator cuff repair DOS: 01/25/2019 Septic arthritis of knee Septic joint Shoulder pain, left Shoulder pain, right Trigeminy URI, acute Vertigo Vitamin B12 deficiency Surgical History 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 Trochanteric bursitis, left hip S/P debridement with IT band lengthenin08/12/2021 Family History Father Heart disease Brother Tremor Son Seizure Mother Osteoarthritis Social History Smoking/Tobacco Use Status: Former Tobacco Use Quit Date: 09/07/79 Pack-years: 1 Smoking risk assessment performed?: Yes Alcohol Intake: never Drug use: Never Substance use type: does not use Household members: children Housing: house Number of Children: 2 current occupation: Retired Current gender identity: male What type of physical activity do you participate in: independent ambulation Do you feel safe at home: Yes Do you feel safe in your relationship?: Yes Meds Allergies and Home Medications Allergies Allergy/AdvReac Type Severity Reaction Status Date / Time ceftriaxone Allergy Severe ANAPHYLAXIS Verified 01/13/22 11:26 Cephalosporins Allergy Severe Anaphylaxsi Verified 01/13/22 11:26 s ciprofloxacin AdvReac Dizziness/L Verified 01/13/22 11:26 ightheade meperidine HCl [From Demerol] AdvReac vomiting Verified 01/13/22 11:26 morphine AdvReac vomiting Verified 01/13/22 11:26 Home Medications Medication Instructions Recorded Confirmed Type metformin 500 mg tablet,extended 500 mg PO BID 04/07/14 01/13/22 History release 24 hr vitamin E 200 unit capsule 400 unit FEEDING TUBE DAILY 04/07/14 01/13/22 History albuterol sulfate 90 mcg/actuation 2 puff INHALATION Q4H inhaler 10/16/14 01/13/22 History aerosol inhaler fluoxetine 20 mg capsule (Prozac) 40 mg FEEDING TUBE DAILY tab-cap 11/08/14 01/13/22 History amoxicillin 500 mg tablet 2,000 mg FEEDING TUBE .PROIR TO 01/04/19 01/13/22 History DENTAL tab insulin detemir U-100 100 unit/mL 22 unit SC BID ml 01/04/19 01/13/22 History (3 mL) subcutaneous pen (Levemir FlexTouch U-100 Insulin) lisinopril 10 mg tablet 5 mg FEEDING TUBE DAILY 08/23/19 01/13/22 History simvastatin 10 mg tablet 5 mg FEEDING TUBE DAILY 06/20/20 01/13/22 History cyanocobalamin (vitamin B-12) 1,000 mcg FEEDING TUBE DAILY 10/22/20 05/09/22 History 1,000 mcg tablet meclizine 25 mg tablet 25 mg FEEDING TUBE Q6H PRN 06/28/20 01/13/22 History insulin aspart U-100 100 unit/mL 0 unit SUBCUT DAILY 09/04/20 01/13/22 History (3 mL) subcutaneous pen (Novolog Flexpen U-100 Insulin aspart) acetaminophen 500 mg tablet 500 mg PO Q6H PRN #60 tab 07/31/21 01/13/22 Rx levothyroxine 125 mcg capsule 50 mcg PO DAILY cap 09/10/21 01/13/22 History omeprazole 40 mg capsule,delayed 40 mg FEEDING TUBE DAILY 09/10/21 01/13/22 History release aspirin 81 mg tablet,delayed 81 mg FEEDING TUBE DAILY 01/02/22 01/13/22 History release lorazepam 0.5 mg tablet 0.5 mg FEEDING TUBE PRN PRN 01/02/22 01/13/22 History oxycodone 5 mg/5 mL oral solution 5 mg FEEDING TUBE Q4H PRN PRN 01/02/22 01/13/22 History silver sulfadiazine 1 % topical 1 applic TOPICAL BID 01/02/22 01/13/22 History cream bisoprolol fumarate 10 mg tablet 5 mg FEEDING TUBE DAILY 01/06/22 01/13/22 History docusate sodium 50 mg/5 mL oral 50 mg FEEDING TUBE PRN PRN 01/06/22 01/13/22 History liquid prochlorperazine maleate 10 mg 10 mg FEEDING TUBE HS 01/06/22 01/13/22 History tablet sennosides 8.8 mg/5 mL oral syrup 8.8 mg FEEDING TUBE PRN PRN 01/06/22 01/13/22 History (senna) fentanyl 75 mcg/hr transdermal 1 patch TRANSDERMAL Q72H #5 ea 01/09/22 01/13/22 Rx patch naloxone 4 mg/actuation nasal 1 spray INTRANASAL Q2-3M PRN #1 ea 01/09/22 01/13/22 Rx spray (Narcan) sucralfate 1 gram tablet 1 g UD AC & HS #30 tab 01/09/22 01/13/22 Rx fluoxetine 20 mg/5 mL (4 mg/mL) 20 mg UD DAILY 01/13/22 01/13/22 History oral solution Exam Narrative Exam Narrative: General: Very pleasant elderly male who is able to communicate with slight slurring of words, but very intelligebly, TUNU[place]K, on RA, tremulous Neurological: A&Ox3, TUNUNAK, no focal deficits Psychiatric: Appropriate speech pattern/content Skin: Radiation jaimes circumferentially around the neck; R chest infusaport is dressed, but skin underneath dressing appears erythematous HEENT: Atraumatic, normocephalic, EOMI, dry MM, clear oropharynx, radiation burn around the neck with multiple scabbed over healing lesions, no goiter or JVD Cardiovascular: RRR, no m/r/g Lungs: CTAB Gastrointestinal: soft, nontender, nondistended, PEG tube LUQ Genitourinary: deferred Extremities: B feet violacious in color, cool, 1+ pedal pulses, no edema/clubbing. No lesions on B feet Results Imaging Additional studies: CXR: No acute? findings Labs Result diagrams: 01/13/22 11:27 01/13/22 11:27 Labs: Laboratory Results - last 24 hr 01/13/22 01/13/22 01/13/22 11:24 11:27 11:27 WBC 10.13 RBC 3.76 L Hgb 11.3 L Hct 36.0 L MCV 96 H MCH 30.1 MCHC 31.4 L RDW 16.1 H Plt Count 435 H MPV 9.4 Immature Gran % 0.5 Neutrophils % 88.6 Lymphocytes % 2.2 Monocytes % 7.5 Eosinophils % 0.9 Basophils % 0.3 Nucleated RBC % 0.0 Absolute Neutrophils 8.98 H Absolute Lymphocytes 0.22 L Absolute Monocytes 0.76 Absolute Eosinophils 0.09 Absolute Basophils 0.03 Sodium 132 L Potassium 4.3 Chloride 96 L Carbon Dioxide 32.5 H Anion Gap 3.5 BUN 30 H Creatinine 0.9 Estimated GFR/1.73 m2 >= 60.00 Glucose 180 H Calcium 8.4 L Magnesium 1.5 L Total Bilirubin 0.3 AST 51 H ALT 29 Alkaline Phosphatase 68 Troponin I < 50 Total Protein 6.2 L Albumin 2.3 L Urine Color Urine Clarity Urine pH Ur Specific [place] Urine Protein Urine Ketones Urine Blood Urine Nitrite Urine Bilirubin Urine Urobilinogen Ur Leukocyte Esterase Urine Glucose COVID-19 Source Nasal/Nares SARS-CoV-2 (PCR) Negative 01/13/22 01/13/22 13:47 14:24 WBC RBC Hgb Hct MCV MCH MCHC RDW Plt Count MPV Immature Gran % Neutrophils % Lymphocytes % Monocytes % Eosinophils % Basophils % Nucleated RBC % Absolute Neutrophils Absolute Lymphocytes Absolute Monocytes Absolute Eosinophils Absolute Basophils Sodium Potassium Chloride Carbon Dioxide Anion Gap BUN Creatinine Estimated GFR/1.73 m2 Glucose Calcium Magnesium Total Bilirubin AST ALT Alkaline Phosphatase Troponin I < 50 Total Protein Albumin Urine Color Yellow Urine Clarity Clear Urine pH 5.5 Ur Specific [place] 1.025 Urine Protein Negative Urine Ketones Negative Urine Blood Negative Urine Nitrite Negative Urine Bilirubin Negative Urine Urobilinogen 0.2 Ur Leukocyte Esterase Negative Urine Glucose Negative COVID-19 Source SARS-CoV-2 (PCR) Last Vital Signs Temp 36.2 C L 01/13/22 15:24 Pulse 60 01/13/22 15:24 Resp 18 01/13/22 15:24 BP 136/67 01/13/22 15:24 Pulse Ox 96 01/13/22 15:24
[2022-01-13] MEDS: Enoxaparin 40 MG/0.4 ML SYR SC (16:35)
[2022-01-13] MEDS: Dextrose 50%-Water 25 GM/50 ML SYR IVP (16:48)
[2022-01-13] MEDS: Insulin Aspart 300 UNITS/3 ML PEN SC (19:37)
[2022-01-13] MEDS: fentaNYL 75 MCG PATCH TD (22:56)
[2022-01-14] MEDS: DEXTROSE 5%-0.45% SALINE 1,000 ML 150 ML IV ×2 (02:20→09:26)
[2022-01-14 02:50] VITALS: BP 103/60; PULSE 62; RESP 20; TEMP 36.8; O2SAT 95
[2022-01-14 06:31] LABS: Abs Immature Grans 0.02 10^3/uL (0.0-0.06); Absolute Basophil Count 0.02 10^3/uL (0.0-0.2); Absolute Eosinophil Count 0.28 10^3/uL (0.0-0.7); Absolute Lymphocyte Count 0.42 10^3/uL (1.2-3.4); Absolute Monocyte Count 0.75 10^3/uL (0.1-0.8); Absolute Neutrophil Count 3.84 10^3/uL (1.2-6.7); Basophils % 0.4; Eosinophils % 5.3; HCT 37.3 % (40.0-50.0); Immature Grans % 0.4; Lymphocytes % 7.9; MCH 30.6 pg (27.0-33.0); MCHC 32.2 % (32.0-36.0); MCV 95 fL (80-95); MPV 9.4 fL (8.0-11.0); Monocytes % 14.1; Neutrophils % 71.9; Platelet Count 439 10^3/uL (130-400); RBC 3.92 10^6/uL (4.36-5.78); RDW 16.2 % (11.8-14.1); RDW-SD 56.9 fL; WBC 5.33 10^3/uL (4.4-10.8)
[2022-01-14 06:53] LABS: Anion Gap 5.1 mmol/L (3-11); BUN 16 mg/dL (7-18); CO2 32.9 mmol/L (21.0-32.0); CREATININE 0.7 mg/dL (0.70-1.30); Calcium 8.7 mg/dL (8.5-10.1); Chloride 95 mmol/L (98-107); Glucose 129 mg/dL (74-106); Magnesium 1.3 mg/dL (1.8-2.4); PHOSPHORUS 3.6 mg/dL (2.6-4.7); Sodium 133 mmol/L (136-145)
[2022-01-14 08:11] VITALS: BP 127/67; PULSE 67; RESP 18; TEMP 36.2; O2SAT 96
[2022-01-14 08:37] LABS: Hemoglobin A1C 6.8 % (<5.7)
[2022-01-14] MEDS: Bisoprolol 5 MG TAB NG (08:49)
[2022-01-14] MEDS: MAGNESIUM SULFATE 4 GM/100 ML BAG IVPB (09:16)
[2022-01-14] MEDS: Normal Saline Flush 10 ML SYR IVP ×3 (09:17→20:18)
[2022-01-14] MEDS: Aspirin 81 MG CHEW NG (09:58)
[2022-01-14] MEDS: Insulin Aspart 300 UNITS/3 ML PEN SC ×2 (10:03→14:41)
[2022-01-14] MEDS: DEXTROSE 5%-LACTATED RINGERS 1,000 ML 150 ML IV ×2 (11:05→18:14)
[2022-01-14 11:16] VITALS: BP 106/64; PULSE 69; RESP 18; TEMP 36; O2SAT 93
--- NOTE | 2022-01-14 11:32 | INITIAL_ITS ---
- If Service Date Differs Date of service: 01/14/22 Time of Service: 11:32 Care Management Initial Assess REASON FOR HOSPITALIZATION:: Hypoglycemia PAST MEDICAL HISTORY/PAST SURGICAL HISTORY:: Medical History . Arthralgia. Back pain, acute. Bradycardia. Chondromalacia patellae of left knee. Chronic low back pain. Colon polyps. Depression. Diabetic peripheral neuropathy. Diverticulosis. DJD of right AC (acromioclavicular) joint. Essential tremor (11/21/14). Fatigue. GERD (gastroesophageal reflux disease). Headache. Cervical. Hip pain, left. History of tobacco use. HTN (hypertension). Hyperlipemia. Hypotension. Hypothyroidism. 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 Insect bite. Internal derangement of left knee. Lumbosacral neuritis. Neck pain on left side. Obesity. Osteoarthritis of left knee. Primary osteoarthritis of right hip. Prolonged depression. Psoriasis. Radicular syndrome of lower limbs. Resting tremor. Right rotator cuff tear. Injection under fluoroscopy: 11/04/18. Status post rotator cuff repair. DOS: 01/25/2019. Septic arthritis of knee. Septic joint. Shoulder pain, left. Shoulder pain, right. Trigeminy. URI, acute. Vertigo. Vitamin B12 deficiency. Surgical History . 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 History of total left knee replacement (10/02/20). Hx of total knee arthroplasty. Right. S/P cholecystectomy. S/P lumbar spine operation. x2. Status post right rotator cuff repair (~01/25/19). Repair of supraspinatus, distal clavicle excision, biceps tenotomy. Dr. Espinal. 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 Trochanteric bursitis, left hip. S/P debridement wi th IT band lengthenin08/12/2021 PREVIOUS FUNCTIONAL STATUS/SOCIAL/FAMILY SUPPORTS:: Arianna resides in [facility], his son and daughter reside locally and are supportive. ADVANCE DIRECTIVES:: On file, Sixto as agent. Has patient been provided with info about the portal/API?: No Did the patient sign up for the portal?: No CODE STATUS:: Full Code INSURANCE COVERAGE / FINANCIAL ISSUES:: Medicare. [place] CURRENT HOME/COMMUNITY SERVICES/EQUIPMENT:: [employer]ER DENG, anibal brambila, glucometer PRIMARY CARE PHYSICIAN:: Beatriz Cotton POTENTIAL DISCHARGE NEEDS:: Evaluations for increased services. PATIENT/FAMILY EDUCATION NEEDS:: Review of discharge instructions, discuss Ask Me Three. ANTICIPATED BARRIERS TO DISCHARGE:: None identified. TRANSPORTATION:: Via private vehicle with family. PLAN:: Anticipate Arianna will return home with a resumption of home health nurs ing through [facility] when ready per MD. He will follow up with his PCP and community providers, and transport via private vehicle with family. CM continues to follow.
--- NOTE | 2022-01-14 15:21 | CHAPLAIN ---
Arianna was sitting up in the chair when I visited. He said he's not sure what's going on with his medical care, and that he hasn't spoken to family members. This was all disconcerting for him, he said. Arianna is being treated for throat cancer and his adult children take good care of him according to the ED notes. He was confused in the ED yesterday and may be again today.
[2022-01-14 16:06] VITALS: BP 102/61; PULSE 64; RESP 16; TEMP 36.2; O2SAT 93
[2022-01-14] MEDS: Enoxaparin 40 MG/0.4 ML SYR SC (16:48)
--- NOTE | 2022-01-14 18:40 | W.PM.PROGNOT ---
Date of Service Date of service: 01/14/22 Time of Service: 18:41 Assessment and Plan Assessment and plan (1) Hypoglycemia: Status: Resolved Assessment and plan: Etiology: accidental medication error vs triggered by an acute process, such as infection, in which case the infusaport infection needs to be ruled out. D/c d5 fluids. Monitor BGs off of the D5. Await blood cultures. Continue to hold long acting insulin. 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 Continue TFs. (3) IDDM (insulin dependent diabetes mellitus): Status: Chronic Assessment and plan: As above (4) Dysphagia: Status: Chronic Assessment and plan: Continue tube feeding (5) DVT prophylaxis: Status: Acute Assessment and plan: SC enoxaparin (6) Discharge planning issues: Status: Acute Assessment and plan: Full code as confirmed with the patient and verified in his advanced directives. Anticipate discharge home tomorrow Subjective Subjective Interval history since last seen: Mr Arevalo feels well today. No pain, dizziness, chest pain, shortness of breath, nausea. The first BG>200 was at about 2 pm this afternoon while on D5 fluid. D5 fluids are now d/c'ed. Afebrile. Exam Narrative Exam Narrative: General: Very pleasant elderly male who is able to communicate with slight slurring of words, but very intelligebly, MOHEGAN, on RA, tremulous HEENT: EOMI, dry MM Cardiovascular: RRR, no m/r/g Lungs: CTAB Gastrointestinal: soft, nontender, nondistended, PEG tube LUQ Extremities: no edema/clubbing. No lesions on B feet Objective Last Vital Signs Temp 36.2 C L 01/14/22 16:06 Pulse 64 01/14/22 16:06 Resp 16 01/14/22 16:06 BP 102/61 01/14/22 16:06 Pulse Ox 93 01/14/22 16:06 Laboratory Results - last 24 hr 01/14/22 01/14/22 01/14/22 06:00 06:00 06:00 WBC 5.33 RBC 3.92 L Hgb 12.0 L Hct 37.3 L MCV 95 MCH 30.6 MCHC 32.2 D RDW 16.2 H Plt Count 439 H MPV 9.4 Immature Gran % 0.4 Neutrophils % 71.9 Lymphocytes % 7.9 Monocytes % 14.1 Eosinophils % 5.3 Basophils % 0.4 Nucleated RBC % 0.0 Absolute Neutrophils 3.84 Absolute Lymphocytes 0.42 L Absolute Monocytes 0.75 Absolute Eosinophils 0.28 Absolute Basophils 0.02 Sodium 133 L Potassium 4.0 Chloride 95 L Carbon Dioxide 32.9 H Anion Gap 5.1 BUN 16 Creatinine 0.7 Estimated GFR/1.73 m2 >= 60.00 Glucose 129 H Hemoglobin A1c 6.8 H Calcium 8.7 Phosphorus 3.6 Magnesium 1.3 L
[2022-01-14 19:30] VITALS: BP 116/67; PULSE 74; RESP 20; TEMP 37; O2SAT 92
--- NOTE | 2022-01-14 20:49 | NUR.NOTE ---
This nurse introduce self to patient, informed him that i will be his nurse for the remaining of the night. He state he feels as if he is being picked on by the staff tonozzy and he does not appreciate that. He further state he just came here from the cancer center and he will be discharged in the morning. I further asked patient if it was anything i had done.He did not respond. I further asked him what can to do at this point to help him to feel better. He said he will not be taking anymore insulin tonight and he will not be taking any more medication. He refused to have have his IVs flushed because he does not want me to put anything inside of his body, however he allowed me to examine the area. Area is reddened and bruised, but none tender as per patient report. Patient was reminded that our goal is to give optimal care and to ensure that he gets the best care possible while admitted.
[2022-01-14 23:43] VITALS: BP 139/68; PULSE 83; RESP 18; TEMP 37.2; O2SAT 96
[2022-01-15] VITALS (64 sets, daily range): BP systolic 85–168; BP diastolic 42–99; PULSE 51–90; RESP 9–25; TEMP 35.7–36.7; O2SAT 74–99
--- NOTE | 2022-01-15 | DI.CT_ITS ---
Exam(s) CT HEAD WO EXAM: CT HEAD WO CLINICAL HISTORY: unequal pupils, AMS, concern for a brain bleed. TECHNIQUE: Imaging Protocol: Axial computed tomography images with coronal and sagittal reformatted images were created and reviewed COMPARISON: CT CT HEAD WO from 01/02/2022 FINDINGS: There is marked generalized cerebral atrophy and there are areas of decreased attenuation in periven tricular white matter consistent with microvascular ischemic change. No evidence of acute intracranial hemorrhage, mass effect, or midline shift. The orbital structures are unremarkable. The temporal bone structures appear intact. Calvarium: Normal. Visualized Paranasal sinuses/Mastoids: Clear. IMPRESSION: No evidence of acute intracranial process. RADIATION DOSE DELIVERED: 855.51mGy.cm Total DLP 855.51mGy.cm Total DLP 855.51mGy.cm Total DLP !Error CTDIvol DATA REPOSITORY: All CT scans at this facility are submitted to the National Radiology Data Registry (NRDR) Dose Index Registry (DIR) with the [employer] (A[employer]). RADIATION OPTIMIZATION: All CT scans at this facility use at least one of these dose optimization te chniques: automated exposure control; mA and/or kV adjustment per patient size (includes targeted exa ms where dose is matched to clinical indication); or iterative reconstruction.
[2022-01-15 06:43] LABS: Abs Immature Grans 0.02 10^3/uL (0.0-0.06); Absolute Basophil Count 0.02 10^3/uL (0.0-0.2); Absolute Eosinophil Count 0.12 10^3/uL (0.0-0.7); Absolute Lymphocyte Count 0.31 10^3/uL (1.2-3.4); Absolute Monocyte Count 0.82 10^3/uL (0.1-0.8); Absolute Neutrophil Count 6.47 10^3/uL (1.2-6.7); Basophils % 0.3; Eosinophils % 1.5; HCT 36.7 % (40.0-50.0); HGB 11.8 g/dL (13.5-17.5); Immature Grans % 0.3; MCH 30.2 pg (27.0-33.0); MCHC 32.2 % (32.0-36.0); MCV 94 fL (80-95); MPV 9.5 fL (8.0-11.0); Monocytes % 10.6; Neutrophils % 83.3; Platelet Count 432 10^3/uL (130-400); RBC 3.91 10^6/uL (4.36-5.78); RDW-SD 54.3 fL; WBC 7.76 10^3/uL (4.4-10.8)
[2022-01-15 06:58] LABS: BUN 13 mg/dL (7-18); CREATININE 0.7 mg/dL (0.70-1.30); Calcium 8.7 mg/dL (8.5-10.1); Chloride 95 mmol/L (98-107); Glucose 147 mg/dL (74-106); Magnesium 1.3 mg/dL (1.8-2.4); Potassium 4.1 mmol/L (3.5-5.1); Sodium 134 mmol/L (136-145)
[2022-01-15] MEDS: Aspirin 81 MG CHEW NG (08:32)
[2022-01-15] MEDS: Bisoprolol 5 MG TAB NG (08:32)
[2022-01-15] MEDS: Normal Saline Flush 10 ML SYR IVP ×3 (08:32→15:50)
[2022-01-15] MEDS: Insulin Aspart 300 UNITS/3 ML PEN SC ×2 (08:34→10:23)
--- NOTE | 2022-01-15 10:22 | NUR.NOTE ---
Nursing Note: Removed Fentanyl patch from Pt's left arm per MD verbal order d/t confusion. Beatriz Jacobs witnessed waste of patch.
[2022-01-15] MEDS: MAGNESIUM SULFATE 4 GM/100 ML BAG IVPB (10:39)
[2022-01-15] MEDS: LORazepam 2 MG/ML VIAL 0.5 MG IVP (11:03)
--- NOTE | 2022-01-15 11:53 | PDOC.CMPRO ---
- If Service Date Differs Date of service: 01/15/22 Time of Service: 11:53 Care Management Progress Note S/O: Arianna requires inpatient admission for additional medical work up. CM will continue to support discharge planning needs. A: 71 year old male admitted to [facility] on 01/13/22 for hypoglycemia. P: Anticipate Arianna will return home with a resumption of home health nursing through [facility] when ready per MD. He will follow up with his PCP and community providers, and transport via private vehicle with family. CM continues to follow.
[2022-01-15] MEDS: Lactated Ringers 1,000 ML 1000 ML IV (14:09)
[2022-01-15] MEDS: Naloxone 0.4 MG/ML VIAL 0.2 MG IVP ×3 (14:10→17:10)
--- NOTE | 2022-01-15 15:33 | NUR.NOTE ---
Nursing Note:[id number] notified Tatum Silveira CC that Pt was very sonorous, and difficult to arouse. Asked CC to notify MD that Pt was difficult to arouse and that Pt's son was here and wanted to speak with MD regarding pain medications, hydration status. Asked CC to relay that nursing was concerned and wanted MD to come lay her eyes on Pt d/t sedation. while waiting for MD Pt was monitored by nursing, checked VS, O2 between 92-96%. Some short periods of apnea noted. Son in room. MD came in to see Pt and new orders were placed, narcan given, Pt went into withdrawal and was combative. transferred to the ICU.
[2022-01-15] MEDS: Ondansetron 4 MG/2 ML VIAL IVP (15:50)
[2022-01-15] MEDS: dexmedeTOMidine IN 0.9 % NACL 400 MCG/100 ML BTL IVPB (15:51)
--- NOTE | 2022-01-15 16:57 | PGE_ITS ---
Date of Service Date of service: 01/15/22 Time of Service: 16:57 Assessment and Plan Assessment and plan (1) Acute respiratory failure with hypoxia and hypercapnia: Status: Acute Assessment and plan: In setting of an interaction of fentanyl and lorazepam. Narcan boluses effective but do not last. Starting narcan infusion. With this the patient gets quite agitated - precedex should keep the patient calm and without hypoventilation. As the patient's narcan has worked, apneic pauses disappear and hypoventilation improves. Keep in ICU. The patient is full code - we are notifying anesthesia for the possibility of intubation tonight, but we will try to avoid this at all cost at the patient has a history of head and neck cancer. (2) Toxic metabolic encephalopathy: Status: Acute Assessment and plan: As above Because the response to narcan is so marked, I do not think that further brain imaging is warranted at this time. (3) CO2 narcosis: Status: Acute Assessment and plan: As above (4) Hypoglycemia: Status: Resolved Assessment and plan: Etiology: accidental medication error, probably related to confusion from fentanyl. Doing well off of D5 IVF. Blood cultures negative. Continue to hold long acting insulin. 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 Hold TFs. (6) IDDM (insulin dependent diabetes mellitus): Status: Chronic Assessment and plan: As above (7) Dysphagia: Status: Chronic Assessment and plan: Holding TFs currently in light of possible intubation. Once mental status is consistently better, resume tube feeding (8) DVT prophylaxis: Status: Acute Assessment and plan: SC enoxaparin (9) Discharge planning issues: Status: Acute Assessment and plan: Full code as confirmed with the patient and verified in his advanced directives. Transferred to the ICU. Total Critical Care Time 90 minutes. Subjective Subjective Interval history since last seen: Came to evaluate the patient at the request of nursing and son. The patient had become progressively more confused over the course of the night and was even combative, which was very unusual for him. The son of the patient had stated that ever since he was initiated on the fentanyl patches with the dose being progressively increased, he had noticed worsening confusion. The patient was agitated for a good portion of the morning and received a prn dose of 0.5 mg of lorazepam and his fentanyl patch was removed. After this, the patient became initially calmer but progressively more sedated with apneic pauses which were lengthy. The patient became hard to wake up. 0.2 mg of narcan administered with improvement in mental status, but the patient did again become somnolent with apneic pattern. O2 sats were in the 90s, fingerstick BG around 217. Decision was made to transfer to the ICU for closer monitoring. In the ICU, another dose of 0.2 mg of narcan was administered. The patient became agitated and required addition of precedex to control agitation. As the narcan wore off, the patient became more somnolent, despite precedex being stopped, and again, was hypoventilating. He was saturating in the 70s on 5L. Placed on NRB. ABG obtained: 7.315, pCO2 of 68.4, pO2 233, bicarb 34.8, O2 sat >99% on 100% FIO2 NRB. The patient received another 0.2 mg of narcan with improvement in ventilation and will be shortly started on narcan infusion. He is full code. Son is at bedside - I have been explaining everything that we are doing with Mr Arevalo. Exam Narrative Exam Narrative: General: Elderly male who is sedated, arousable to sternal rub, pupils pinpoint, apneic episodes lasting >10 seconds, snoring HEENT: dry MM, conjunctivitis Cardiovascular: RRR, no m/r/g Lungs: CTAB with long apneic pauses. Gastrointestinal: soft, nontender, nondistended, PEG tube LUQ Extremities: no edema/clubbing. No lesions on B feet Objective Last Vital Signs Temp 36.2 C L 01/15/22 11:10 Pulse 60 01/15/22 14:41 Resp 17 01/15/22 14:41 BP 124/64 01/15/22 14:41 Pulse Ox 97 01/15/22 14:41 Laboratory Results - last 24 hr 01/15/22 01/15/22 06:22 06:22 WBC 7.76 RBC 3.91 L Hgb 11.8 L Hct 36.7 L MCV 94 MCH 30.2 MCHC 32.2 RDW 16.0 H Plt Count 432 H MPV 9.5 Immature Gran % 0.3 Neutrophils % 83.3 Lymphocytes % 4.0 Monocytes % 10.6 Eosinophils % 1.5 Basophils % 0.3 Nucleated RBC % 0.0 Absolute Neutrophils 6.47 Absolute Lymphocytes 0.31 L Absolute Monocytes 0.82 H Absolute Eosinophils 0.12 Absolute Basophils 0.02 Sodium 134 L Potassium 4.1 Chloride 95 L Carbon Dioxide 30.0 Anion Gap 9.0 BUN 13 Creatinine 0.7 Estimated GFR/1.73 m2 >= 60.00 Glucose 147 H Calcium 8.7 Magnesium 1.3 L Multi-Disciplinary Checklist Lines/Tubes CENTRAL LINE: no ARTERIAL LINE: no BLACK: yes, Black Day#: 0 ENDOTRACHEAL TUBE: no ICU Maintenance GLUCOSE 140-180mg/dL: yes NUTRITION AT GOAL: no, Reason/Intervention: NPO in anticipation of a possible intubation PRESSURE ULCER: no RESTRAINTS: yes, Reviewed Necessity: Yes ANTIBIOTICS(if yes, consider Stewardship): No Social Issues FAMILY UPDATED: yes PT/OT: no, GOALS/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
[2022-01-15 17:14] LABS: BE 9 mmol/L (-2-3); HCO3 35 mmol/L (22-26); pH 7.32 (7.35-7.45); pO2 233 mmHg (80-105)
[2022-01-15 17:18] LABS: pCO2 68 mmHg (35-45); sO2 > 99 % (95-98)
[2022-01-15 17:19] LABS: FIO2L 100 L; Site Right Radial
[2022-01-15] MEDS: Lidocaine 2% Jelly 6 ML SYR (17:20)
[2022-01-15] MEDS: Enoxaparin 40 MG/0.4 ML SYR SC (18:19)
[2022-01-15] MEDS: Lactated Ringers 1,000 ML 150 ML IV (18:20)
[2022-01-15] MEDS: Refresh PLUS Eye Drops 0.4ml 1 EACH OU ×2 (18:25→22:51)
[2022-01-15] MEDS: Normal Saline-STERILE FIELD 0.9% 10 ML SYR (19:04)
[2022-01-15] MEDS: Erythromycin Ophth Oint 3.5 GM TUBE OU (20:27)
[2022-01-15] MEDS: DEXTROSE 5%-LACTATED RINGERS 1,000 ML 150 ML IV (20:45)
--- NOTE | 2022-01-15 21:04 | NUR.NOTE ---
Nursing Note: Pt became slightly more coherent, asking questions r/t where he was, why he was here and restrained, etc. This RN facilitated phone call with pt's son, Sixto, to help ease anxiety r/t recent memory impairment and waking up in ICU, restrained. Pt seems apprehensive and initially suspicious/upset but seems to accept his son's explanations to a certain extent--enough to accept that he will see him during visiting hours tomorrow. Shortly after, this RN facilitated phone call with pt's daughter which also aided pt in feeling supported and safe. Noting r/t potential future needs of soothing or helping pt through confusing or stressful situations; Sixto and Dejah are very helpful to ease pt's mind about the hospital setting.
--- NOTE | 2022-01-15 22:34 | NUR.NOTE ---
Nursing Note: Patient taken down for Head CT with all required euipments along with DROP FORGER Alyson at 21:50 and returned kathy to the unit at 22:20. Patient was awake, confused at times,tolerated procedure.
--- NOTE | 2022-01-15 22:49 | DI.VRAD_ITS ---
PROCEDURE INFORMATION: Exam: CT Head Without Contrast Exam date and time: 01/15/2022 10:07 PM Age: 71 years old Clinical indication: Altered mental status/memory loss; Confusion or disorientation; Additional info: AMS, concern for bleed TECHNIQUE: Imaging protocol: Computed tomography of the head without contrast. Radiation optimization: All CT scans at this facility use at least one of these dose optimization techniques: automated exposure control; mA and/or kV adjustment per patient size (includes targeted exams where dose is matched to clinical indication); or iterative reconstruction. COMPARISON: CT HEAD WO 01/02/2022 2:43 PM FINDINGS: Brain: Prominence of cerebral sulci reflects diffuse cerebral atrophy. Bilateral zones of abnormal hypodensity are seen throughout the deep and periventricular white matter of both cerebral hemispheres and also involve the thalamus bilaterally consistent with chronic ischemic changes. Brainstem and cerebellum are unremarkable and there is no evidence of acute infarct or recent intracranial hemorrhage. Cerebral ventricles: Dilatation of the 3rd and lateral ventricles is commensurate with the degree of cerebral atrophy. Paranasal sinuses: Grossly clear throughout. Mastoid air cells: Grossly clear bilaterally. Probable cerumen seen in the left external auditory canal. Bones/joints: Bony calvarium and skull base are intact and no acute fractures are detected. Soft tissues: Unremarkable. IMPRESSION: Diffuse atrophy and chronic ischemic changes with no evidence of acute infarct, recent hemorrhage or hydrocephalus. No acute intracranial process is detected. Dictated and Authenticated by: Blade Berumen MD. Ordering:MELVINA Rosas MD
[2022-01-16] VITALS (45 sets, daily range): BP systolic 95–126; BP diastolic 43–65; PULSE 55–75; RESP 11–21; TEMP 36.4–36.7; O2SAT 87–99
[2022-01-16] MEDS: Insulin Aspart 300 UNITS/3 ML PEN SC ×3 (00:18→12:03)
[2022-01-16] MEDS: Normal Saline Flush 10 ML SYR IVP ×3 (01:52→20:27)
[2022-01-16] MEDS: DEXTROSE 5%-LACTATED RINGERS 1,000 ML 150 ML IV (03:33)
[2022-01-16 07:19] LABS: Abs Immature Grans 0.05 10^3/uL (0.0-0.06); Absolute Basophil Count 0.01 10^3/uL (0.0-0.2); Absolute Eosinophil Count 0.24 10^3/uL (0.0-0.7); Absolute Lymphocyte Count 0.27 10^3/uL (1.2-3.4); Absolute Monocyte Count 0.88 10^3/uL (0.1-0.8); Basophils % 0.2; Eosinophils % 3.8; HCT 33.1 % (40.0-50.0); HGB 10.2 g/dL (13.5-17.5); Immature Grans % 0.8; Lymphocytes % 4.3; MCH 29.8 pg (27.0-33.0); MCHC 30.8 % (32.0-36.0); MCV 97 fL (80-95); MPV 9.9 fL (8.0-11.0); Monocytes % 14.1; Neutrophils % 76.8; Platelet Count 387 10^3/uL (130-400); RBC 3.42 10^6/uL (4.36-5.78); RDW 16.7 % (11.8-14.1); RDW-SD 59.2 fL; WBC 6.25 10^3/uL (4.4-10.8)
[2022-01-16 07:26] LABS: Anion Gap 3.6 mmol/L (3-11); BUN 12 mg/dL (7-18); CO2 35.4 mmol/L (21.0-32.0); CREATININE 0.8 mg/dL (0.70-1.30); Calcium 8.3 mg/dL (8.5-10.1); Chloride 101 mmol/L (98-107); Glucose 156 mg/dL (74-106); Magnesium 1.6 mg/dL (1.8-2.4); Potassium 3.7 mmol/L (3.5-5.1); Sodium 140 mmol/L (136-145)
[2022-01-16] MEDS: Refresh PLUS Eye Drops 0.4ml 1 EACH OU ×4 (08:27→20:27)
[2022-01-16] MEDS: Bisoprolol 5 MG TAB NG (08:28)
[2022-01-16] MEDS: Erythromycin Ophth Oint 3.5 GM TUBE OU ×3 (08:29→20:29)
--- NOTE | 2022-01-16 09:38 | PDOC.CMPRO ---
- If Service Date Differs Date of service: 01/16/22 Time of Service: 09:38 Care Management Progress Note S/O: Arianna is progressing, he is awake, alert and tolerating Tube feedings. His son came to visit today. PT evaluation is ordered and pt may discharge home tomorrow with resumption of [facility] services depending on evaluation. CM will continue to support discharge planning needs. A: 71 year old male admitted to [facility] on 01/13/22 for hypoglycemia. P: Anticipate Arianna will return home with a resumption of home health nursing through [facility] when ready per MD. He will follow up with his PCP and community providers, and transport via private vehicle with family. CM continues to follow.
--- NOTE | 2022-01-16 13:32 | W.PM.PROGNOT ---
Date of Service Date of service: 01/16/22 Time of Service: 12:50 Assessment and Plan Assessment and plan (1) Acute respiratory failure with hypoxia and hypercapnia: Status: Acute Assessment and plan: In setting of an interaction of fentanyl and lorazepam. Narcan boluses effective but do not last. Now off narcan drip and precedex. Awake and stable on NC. Keep in ICU today for monitoring but could likely be med-surg status later today or tomorrow. (2) Toxic metabolic encephalopathy: Status: Acute Assessment and plan: As above (3) CO2 narcosis: Status: Acute Assessment and plan: As above (4) Hypoglycemia: Status: Resolved Assessment and plan: Etiology: accidental medication error, probably related to confusion from fentanyl. Doing well off of D5 IVF. Blood cultures negative. Continue to hold long acting insulin. Restarted home PEG tube feeds. 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 (6) IDDM (insulin dependent diabetes mellitus): Status: Chronic Assessment and plan: As above (7) Dysphagia: Status: Chronic Assessment and plan: Now mental status has improved, resume PEG feeds. (8) DVT prophylaxis: Status: Acute Assessment and plan: SC enoxaparin (9) Discharge planning issues: Status: Acute Assessment and plan: Full code as confirmed with the patient and verified in his advanced directives. Subjective Subjective Patient reports: feels better, pain is less and afebrile; denies diarrhea, nausea or vomiting Exam Narrative Exam Narrative: General: Elderly male. Awake and interactive. Still sleepy. Not aggressive or agitated. HEENT: dry MM, Left pupil slightly larger than right. Pupils are reactive to light. Cardiovascular: RRR, no murmur Lungs: CTAB Gastrointestinal: soft, nontender, nondistended, PEG tube LUQ Extremities: no edema/clubbing. Objective Last Vital Signs Temp 36.7 C 01/16/22 12:00 Pulse 67 01/16/22 13:00 Resp 13 01/16/22 13:01 BP 110/50 L 01/16/22 13:00 Pulse Ox 89 L 01/16/22 13:01 Laboratory Results - last 24 hr 01/15/22 01/16/22 01/16/22 17:00 05:53 05:53 WBC 6.25 RBC 3.42 L Hgb 10.2 L Hct 33.1 L MCV 97 H MCH 29.8 MCHC 30.8 L D RDW 16.7 H Plt Count 387 MPV 9.9 Immature Gran % 0.8 Neutrophils % 76.8 Lymphocytes % 4.3 Monocytes % 14.1 Eosinophils % 3.8 Basophils % 0.2 Nucleated RBC % 0.0 Absolute Neutrophils 4.80 Absolute Lymphocytes 0.27 L Absolute Monocytes 0.88 H Absolute Eosinophils 0.24 Absolute Basophils 0.01 ABG Sample Site Right Radial ABG pH 7.32 L ABG pCO2 68 H* ABG pO2 233 H ABG HCO3 35 H ABG Total CO2 ABG O2 Saturation > 99 H ABG Base Excess 9 H Oxygen Liter Flow 100 Sodium 140 Potassium 3.7 Chloride 101 Carbon Dioxide 35.4 H Anion Gap 3.6 BUN 12 Creatinine 0.8 Estimated GFR/1.73 m2 >= 60.00 Glucose 156 H Calcium 8.3 L Magnesium 1.6 L
[2022-01-16] MEDS: Prochlorperazine 10 MG TAB NG (20:28)
[2022-01-17] VITALS (28 sets, daily range): BP systolic 102–147; BP diastolic 25–83; PULSE 56–84; RESP 9–26; TEMP 36.1–36.9; O2SAT 88–97
[2022-01-17] MEDS: Normal Saline Flush 10 ML SYR IVP ×2 (05:06→15:00)
[2022-01-17] MEDS: Levothyroxine 125 MCG TAB 62.5 MCG NG (05:07)
[2022-01-17 06:17] LABS: HGB 10.2 g/dL (13.5-17.5); MCHC 30.9 % (32.0-36.0); MCV 97 fL (80-95); MPV 9.4 fL (8.0-11.0); Platelet Count 343 10^3/uL (130-400); RDW 17.2 % (11.8-14.1); RDW-SD 60.7 fL; WBC 6.46 10^3/uL (4.4-10.8)
[2022-01-17 06:28] LABS: Anion Gap 2.1 mmol/L (3-11); BUN 14 mg/dL (7-18); CO2 36.9 mmol/L (21.0-32.0); CREATININE 0.7 mg/dL (0.70-1.30); Calcium 8.1 mg/dL (8.5-10.1); Chloride 102 mmol/L (98-107); Glucose 112 mg/dL (74-106); Potassium 3.6 mmol/L (3.5-5.1); Sodium 141 mmol/L (136-145)
--- NOTE | 2022-01-17 09:57 | PDOC.CMDIS ---
- If Service Date Differs Date of service: 01/17/22 Time of Service: 09:58 LACE Index Scoring Tool - Questions: Length of Stay (in days): 4 - 6 Acuity (Admit via E.D.?): Yes Comorbidities: Diabetes w/o Complication E.D. Visits: 2 - Answers: Total Score: 10 Risk of Readmission: High Risk Care Management Discharge Reason for Hospitalization: Hypoglycemia Discharge Plan: Arianna will return home with a resumption of tube feeds through [facility], and resumption of VNA RN through [facility]. He declines VNA PT upon discharge, to be evaluated by home health RN per MD discharge summary. CM requested inpatient order from time of ICU transfer. Patient/Family Education Needs: Review discharge instructions, discuss Ask Me Three. Services Needed at Discharge: Home Health Care Services (Resume RN)
--- NOTE | 2022-01-17 10:02 | CHAPLAIN ---
I visited with Arianna late yesterday afternoon (01/16). He was tearful and ashamed about his behavior the day before while he was having a reaction to a combination of medication. He was going back and forth between being somnolent and aggressive, according his nurse, Enedina. Arianna doesn't remember this period of time, or his behavior during it, but said he is still embarrassed by his behavior. We talked about how it's difficult to be responsible for behavior you're not aware of. He is still having some pain in his mouth and throat from the radiation his neck, and this continues to be difficult, he said. Family members have been visiting and calling and Arianna seems to appreciate this support. He was tense, physically and emotionally. We talked about him taking deep breaths to relax his body some. He said he doesn't have any usually steps he takes to help himself relax. I will continue to visit.
[2022-01-17] MEDS: Erythromycin Ophth Oint 3.5 GM TUBE OU (10:44)
[2022-01-17] MEDS: Refresh PLUS Eye Drops 0.4ml 1 EACH OU (10:45)
[2022-01-17] MEDS: Aspirin 81 MG CHEW NG (10:46)
[2022-01-17] MEDS: Bisoprolol 5 MG TAB NG (10:46)
--- NOTE | 2022-01-17 13:35 | DSE_ITS ---
Date of service: 01/17/22 Time of Service: 12:35 DS: Diagnosis Discharge Diagnosis (1) Acute respiratory failure with hypoxia and hypercapnia: Status: Acute (2) Toxic metabolic encephalopathy: Status: Acute (3) CO2 narcosis: Status: Acute (4) Hypoglycemia: Status: Resolved (5) Squamous cell carcinoma of tonsil: Status: Acute (6) IDDM (insulin dependent diabetes mellitus): Status: Chronic (7) Dysphagia: Status: Chronic (8) DVT prophylaxis: Status: Acute (9) Discharge planning issues: Status: Acute Discharge Plan Disposition Patient Disposition: HOME W/HOME HEALTH SERVICE Condition: Fair Discharge Details Reason For Visit: Hypoglycemia Admit Date/Time: 01/13/22 13:42 Admit Provider: Alison Scott Attending Provider: Alison Scott Primary Care Provider: Beatriz Cotton V Hospital Course Hospital Course: Mr Arevalo is a 71 year old male with h/o head and neck ca on chemo/XRT with dysphagia s/p PEG tube, as well as h/o IDDM2 and sleep apnea, who was brought to [facility] ED after having a reading of low on his glucometer. The patient was found by the son sleeping in a recliner and could not be woken up. He was given orange juice via his PEG tube by his brother with BGs coming up to 40. IN the ER, his BG was 55 and went up to 165 with D50 bolus. The patient was initiated on D5 containing fluids. Observation on hospitalist service was requested. The reason for this hypoglycemia was not clear in the ED workup. He stated that his tremulousness is baseline. He gives himself his own insulin and thinks there is a chance he accidentally dosed himself twice last night. He states that his intake (per PEG) has been consistent. He has an infusaport - he is not sure when the skin around it got red. He denies fevers, chills, chest pain, shortness of breath, GI sx. He was admitted for further monitoring. The patient became progressively more confused over the course of the night and was even combative, which was very unusual for him. The son of the patient had stated that ever since he was initiated on the fentanyl patches with the dose being progressively increased, he had noticed worsening confusion. The patient was agitated for a good portion of the morning and received a prn dose of 0.5 mg of lorazepam and his fentanyl patch was removed. After this, the patient became initially calmer but progressively more sedated with apneic pauses which were lengthy. The patient became hard to wake up. 0.2 mg of narcan administered with improvement in mental status, but the patient did again become somnolent with apneic pattern. O2 sats were in the 90s, fingerstick BG around 217. Decision was made to transfer to the ICU for closer monitoring. In the ICU, another dose of 0.2 mg of narcan was administered. The patient became agitated and required addition of precedex to control agitation. As the narcan wore off, the patient became more somnolent, despite precedex being stopped, and again, was hypoventilating. He was saturating in the 70s on 5L. Placed on NRB. ABG obtained: 7.315, pCO2 of 68.4, pO2 233, bicarb 34.8, O2 sat >99% on 100% FIO2 NRB. The patient received another 0.2 mg of narcan with improvement in ventilation and will be shortly started on narcan infusion. Because of his agitation, precedex also initiated. The following AM the narcan and precedex drip were wean off and the patient was not agitated. He had no complaint of pain. His further course was unremarkable. His PEG tube feedings were resumed. He ambulated with use of a walker (as is his baseline) in the room. His blood glucose was controlled. He has follow up appts scheduled with PCP and oncology. 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 If home health nurse sees a need for PT she will voice this concern with his PCP. Resume PEG tube feeds with Nutran. Home Meds and New Rx's Prescriptions: Continued Levemir FlexTouch U-100 Insuln 100 unit/mL (3 mL) insulin pen 22 unit SC BID Label Comments: 08/23/19 Pt states taking 22 units bid, sugar running 170's w/hip pain. PG amoxicillin 500 mg tablet 2,000 mg feeding tube .PROIR TO DENTAL meclizine 25 mg Tablet 25 mg feeding tube Q6H PRN albuterol sulfate 8.5 GM HFA aerosol inhaler 2 puff Inhalation Q4H levothyroxine 125 mcg capsule 62.5 mcg PO DAILY omeprazole 40 mg capsule,delayed release(DR/EC) 40 mg feeding tube QPM metformin 500 MG tablet extended release 24 hr 500 mg PO BID insulin aspart U-100 [Novolog Flexpen U-100 Insulin] 100 unit/mL (3 mL) insulin pen 0 unit SUBCUT DAILY Rx Instructions: takes total of 55 units daily between sliding scale and carb coverage bisoprolol fumarate 10 MG tablet 5 mg feeding tube DAILY docusate sodium 50 mg/5 mL Liquid 50 mg feeding tube PRN PRN sennosides [senna] 8.8 mg/5 mL Syrup 8.8 mg feeding tube PRN PRN prochlorperazine maleate 10 mg Tablet 10 mg feeding tube HS naloxone [Narcan] 4 mg/actuation spray,non-aerosol 1 spray intranasal Q2-3M PRNQty: 1 0RF Rx Instructions: spray 1 dose into ONE nostril; alternate nostrils w each dose until help arrives oxycodone 5 mg/5 mL solution 5 mg feeding tube Q4H PRN PRN Label Comments: GIVE 5ML PER GIVE TUBE EVERY 3 HOURS NEEDED FOR PAIN lorazepam 0.5 mg tablet 0.5 mg feeding tube PRN PRN Label Comments: TAKE ONE TABLET BY MOUTH 1/2 HOUR PRIOR TO RADIATION THERAPY aspirin 81 mg tablet,delayed release (DR/EC) 81 mg feeding tube DAILY fluoxetine 20 mg/5 mL (4 mg/mL) solution 40 mg UD DAILY diphenhydramine-acetaminophen 25-500 mg-mg/mL Solution 30 ml HS Discontinued fentanyl 75 mcg/hr patch 72 hour 1 patch transdermal Q72H Qty: 5 0RF Discharge Instructions Activity:: Activity as Tolerated Equipment/Supplies:: No Equipment Needed Diet:: Resume home diet Discharge Orders Discharge Orders: Discharge Order (Routine); Ordered 01/17/22 Ordered By: Jeremy Caldera Discharge Data Discharge Date/Time-TO BE ENTERED AT DEPARTURE: 01/17/22 15:00 DS: Summary Time Spent with Patient providing and/or coordinating discharge services: Greater than 30 minutes Status at Discharge Functional status at discharge: uses cane/walker Overall status at discharge: patient is back to baseline Mental Status: mental status grossly normal Speech and Movement: speech and movement normal Mood: congruent mood Affect: normal affect Exam Narrative Exam Narrative: General: Elderly male. Awake and interactive. HEENT: dry MM, Left pupil slightly larger than right. Pupils are reactive to light. Cardiovascular: RRR, no murmur Lungs: CTAB Gastrointestinal: soft, nontender, nondistended, PEG tube LUQ Extremities: no edema/clubbing. Psych Mental Status: mental status grossly normal Speech and Movement: speech and movement normal Mood: congruent mood Affect: normal affect DS: Data Vitals/I&O Vitals and I&O: Vital Signs Temperature 36.2 C L 01/17/22 08:35 Temperature Source Temporal Artery Scan 01/17/22 08:35 Pulse 70 01/17/22 08:35 Pulse Rhythm Regular 01/17/22 04:00 Pulse 73 01/17/22 04:07 Respiratory Rate 14 01/17/22 08:35 Respiratory Effort Non-Labored 01/17/22 04:00 Respiratory Depth Normal 01/17/22 04:00 Respiratory Pattern Normal 01/17/22 04:00 Blood Pressure 110/83 01/17/22 08:35 Blood Pressure Mean 75 01/17/22 04:06 Blood Pressure Position Supine 01/16/22 15:30 Pulse Oximetry 95 01/17/22 08:35 Respiratory End-tidal CO2 30 01/16/22 10:00 Oxygen Delivery Method Nasal Cannula 01/17/22 08:35 Oxygen Flow Rate 2 01/17/22 08:35 Pain Level 0 01/17/22 08:35 Comment 01/15/22 13:01 Intake & Output 01/16/22 01/17/22 01/17/22 23:59 11:59 23:59 Intake Total 1017 / 3559.000 Output Total 675 / 1650 900 / 900 Balance 342 / 1909.000 -900 / -900 Weight 98.2 kg Intake: IV 30 / 2305.000 Oral 500 / 530 Intake, Tube Feeding Amount 487 / 724 Output: Urine 675 / 1650 900 / 900 Output, Residual 0 / 0 Other: Urine Color Yellow Yellow Straw Urine Appearance Clear Clear Urine Odor Normal Normal Comment pereira catheter intact, patent, draining Voiding Methods Bedside Commode Bedside Commode Data Completed and Pending Labs on day of discharge: Labs from last 24 hours 01/17/22 01/17/22 06:00 06:00 WBC 6.46 RBC 3.40 L Hgb 10.2 L Hct 33.0 L MCV 97 H MCH 30.0 MCHC 30.9 L RDW 17.2 H Plt Count 343 MPV 9.4 Sodium 141 Potassium 3.6 Chloride 102 Carbon Dioxide 36.9 H Anion Gap 2.1 L BUN 14 Creatinine 0.7 Estimated GFR/1.73 m2 >= 60.00 Glucose 112 H Calcium 8.1 L Preliminary micro results at discharge 01/13/22 19:50 Blood Culture - Preliminary Blood NO GROWTH 72 HOURS 01/13/22 18:45 Blood Culture - Preliminary Blood NO GROWTH 72 HOURS PFSH All Active Problems Acute respiratory failure with hypoxia and hypercapnia (Acute) Toxic metabolic encephalopathy (Acute) CO2 narcosis (Acute) Discharge planning issues (Acute) DVT prophylaxis (Acute) Dysphagia (Chronic) 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 (Acute) Altered mental status (Acute) Squamous cell carcinoma of tonsil (Acute) Cervical lymphadenopathy (Acute) Tonsillar mass (Acute) Sleep apnea (Acute) Unintentional weight loss (Acute) Swallowing problem (Acute) Abnormal laboratory test (Acute) Screening for colon cancer (Acute) Chest pain (Acute) Asthma (Chronic) Medical History Arthralgia Back pain, acute Bradycardia Chondromalacia patellae of left knee Chronic low back pain Colon polyps Dehydration Depression Diabetic peripheral neuropathy Diverticulosis DJD of right AC (acromioclavicular) joint Essential tremor (11/21/14) Fatigue GERD (gastroesophageal reflux disease) Headache Cervical Hip pain, left History of tobacco use HTN (hypertension) Hyperlipemia Hypomagnesemia Hypotension Hypothyroidism 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) Insect bite Internal derangement of left knee Lumbosacral neuritis Neck pain on left side Obesity Osteoarthritis of left knee Primary osteoarthritis of right hip Prolonged depression Psoriasis Radicular syndrome of lower limbs Resting tremor Right rotator cuff tear Injection under fluoroscopy: 11/04/18 Status post rotator cuff repair DOS: 01/25/2019 Septic arthritis of knee Septic joint Shoulder pain, left Shoulder pain, right Trigeminy URI, acute Vertigo Vitamin B12 deficiency Surgical History 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 Trochanteric bursitis, left hip S/P debridement with IT band lengthenin08/12/2021 Family History Father Heart disease Brother Tremor Son Seizure Mother Osteoarthritis Social History Smoking/Tobacco Use Status: Former Tobacco Use Quit Date: 09/07/79 Pack-years: 1 Smoking risk assessment performed?: Yes Alcohol Intake: never Drug use: Never Substance use type: does not use Household members: children Housing: house Number of Children: 2 current occupation: Retired Current gender identity: male What type of physical activity do you participate in: independent ambulation Do you feel safe at home: Yes Do you feel safe in your relationship?: Yes
== END 2022-01-17 15:00 | disposition home health service (06) ==
LOC: ER 14:18 → MS 15:45 → ICU 01-15 16:57
PROVIDERS: Family Medicine; Admitting Provider Internal Medicine; Emergency Provider Physician Assistant; PCP Family Medicine; Visit Provider Internal Medicine
DX: E11.649 Type 2 diabetes mellitus with hypoglycemia without coma (principal); C09.9 Malignant neoplasm of tonsil, unspecified; J96.01 Acute respiratory failure with hypoxia; J96.02 Acute respiratory failure with hypercapnia; R13.10 Dysphagia, unspecified; T40.411A Poisoning by fentanyl or fentanyl analogs, accidental (unintentional), initial encounter; G92.8 Other toxic encephalopathy; T42.4X1A Poisoning by benzodiazepines, accidental (unintentional), initial encounter; G47.30 Sleep apnea, unspecified; J45.909 Unspecified asthma, uncomplicated; G89.29 Other chronic pain; M54.50 Low back pain, unspecified; E11.42 Type 2 diabetes mellitus with diabetic polyneuropathy; K21.9 Gastro-esophageal reflux disease without esophagitis; F32.A Depression, unspecified; I10 Essential (primary) hypertension; E78.5 Hyperlipidemia, unspecified; E03.9 Hypothyroidism, unspecified; E53.8 Deficiency of other specified B group vitamins; Z79.4 Long term (current) use of insulin; Z93.1 Gastrostomy status; Z96.653 Presence of artificial knee joint, bilateral; Z96.642 Presence of left artificial hip joint; Z79.84 Long term (current) use of oral hypoglycemic drugs; Z20.822 Contact with and (suspected) exposure to COVID-19; Z87.891 Personal history of nicotine dependence
CPT/HCPCS: 36415; 36416; 80048; 80053; 82805; 82962; 85027; 87040; 87635; 96360; 96361; 96365; 96366; 96367; 96372; 96374; 96375; 96376; 99285; J1650; 70450; 71045; 81003; 83036; 83735; 84100; 84484; 85025; 99217; 99220; 99225; 99226; 99233; 99239; 99291; 99292; G0378; J2060; J2310; J2405; J3475

== ENCOUNTER 2022-03-04 02:30 | Outpatient (CLI) | payer MEDICARE, OTHER, SELFPAY ==
[2022-03-04 23:58] LABS: COVID-19 PCR Negative (Negative)
[2022-03-05 00:35] LABS: Source Nasal/Nares
== END 2022-03-04 02:31 | disposition home or self-care (01) ==
PROVIDERS: PCP Family Medicine; Visit Provider Speech-Language Pathologist
DX: Z20.822 Contact with and (suspected) exposure to COVID-19 (principal); Z01.818 Encounter for other preprocedural examination
CPT/HCPCS: 87635; U0005

== ENCOUNTER → 2022-03-05 01:00 | Outpatient (CLI) | payer MEDICARE, OTHER, SELFPAY ==
--- NOTE | 2022-03-05 12:40 | ST.MBS ---
Date of Service Date of service: 03/05/22 Time of Service: 14:30 Modified Barium Swallow Study Findings: Videofluoroscopic Swallowing Evaluation (VFSE) / Modified Barium Swallow Study (MBSS) Speech Language Pathology Report HPI: Patient referred for repeat MBSS from Dr Reyez ([facility]) given recent dysphagia in setting of tonsilar cancer, has since completed concurrent chemo and radiotherapy as of 12/30/21. ? 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 Mass was identified and biopsied by Dr. Quevedo after patient presented with 1+ month of progressive dysphagia to pills as well as voice changes. Prophylactic PEG tube placed on 10/31/2021 along with port placement. He was seen for initial clinical swallow evaluation and provision of education on 10/30/2021 by GR[employer] MACHINE KNIFE SETTER Berna Carter through [facility]. Patient arrives to today for repeat MBSS given increase in pharyngeal globus. ? PMHx: DM2, asthma, essential tremor, depression, GERD, bradycardia. ? ? Surgical History: Left total knee replacement (failed) - 2019 Arthroscopic rotator cuff repair ( R ) - 2019 Total hip replacement. PEG tube placement 10/31/21 Previous Imagin11/05/2021 at [facility] IMPRESSIONS: Mild oropharyngeal dysphagia, likely to become chronic. Impact of delayed/disorganized A/P transit on efficiency and premature posterior spillage, as well as reduced pharyngeal motility (hyoid, epiglottis) altering bolus flow resulting in flash penetration. Possible contributing etiologies include changes caused by tonsil mass, biopsy procedure, GERD, presbyphagia. SUBJECTIVE: Patient reports occasional globus, usually benefits from liquid wash. Otherwise not noting any changes. IMPRESSIONS: Swallow safety is impaired; swallow efficiency is impaired. Moderate [id number] oropharyngeal dysphagia, characterized by physiologic deficits as outlined below, and resulting in silent aspiration during the swallow, mild residue in valleculae as well as trace residue in pyriform sinuses; suspect dysphagia presentation due to effects from recent REPORTER ANCHOR to address R sided tonsil cancer, possible radiation fibrosis, disuse atrophy. Patient appears to be at moderate risk for potential aspiration PNA and/or pulmonary compromise and low-moderate for malnutrition in context of PEG tube and consistent follow up w RD, low risk for dehydration. Diet modification is indicated; non-oral nutrition is indicated. Swallow prognosis is good-fair given motivation to participate in skilled treatment (+), family support (+), expected levels of radiation fibrosis (-), and pending patient/caregiver training in risk management as outlined, including use of trialed compensatory strategies as outlined above.Patient appears to be a good candidate for behavioral swallow rehabilitation.? Specialist referrals:?N/A Ancillary tests: N/A Diet texture recommendation:? IDDSI Level [x] 7-Regular/Easy to Chew Solids [x] 6-Soft & Bite-Sized Solids [x] 0-Thin Liquids Please see further details at?[email or web address] Diet texture modification is per patient's preference; please adjust diet textures at patient's discretion & collaboration with care team. Risk Management:? [x] Behavioral reflux precautions, including upright position during + 90 mins after meals. [x] Small bites, approx [id number] [x] Small sips, approx 10 mL [x] Alternate solids/liquids as able [x] Multiple swallows per bolus to encourage clearance of pharyngeal stasis/residue Control risk factors for aspiration pneumonia via (a) thorough oral hygiene & (b) maintaining physical mobility as tolerated PLAN: Therapy: Recommend subsequent outpatient session with GRINDER MACHINE KNIFE SETTER to review results of today's exam and develop treatment plan as appropriate. May consider the following: Compensatory strategies: - chin tuck - cough+reswallow Exercise: - effortful swallow - Shaker - CTAR - BOT - Tamica - Amelia - Super supraglottic swallow Goal: TBD pending patient/caregiver interview Follow-up exam: N/A Thank you for allowing me to take part in this patient's care. Please feel free to contact me with any questions/concerns. Berna Carter MA [facility] Speech Language Pathologist [phone] OBJECTIVE: Videofluoroscopic Swallow Evaluation (VFSE/MBSS) was conducted in the lateral and [id number] projections by Speech-Language Pathologist, in collaboration with Radiologist, to evaluate oropharyngeal swallow function. Anatomic view under fluoroscopy: [x] WFL PO Barium Contrast Trials Oral barium water-soluble contrast was administered as follows: IDDSI Level 0 Varibar thin liquid (40% w/v) IDDSI Level 2 Varibar nectar thick/mildly thick liquid (40% w/v) IDDSI Level 3 Varibar thin honey/liquidised/moderately-thick (40% w/v) IDDSI Level 4 Varibar pudding/pureed/extremely thick (40% w/v) IDDSI Level 7 Regular Solid: 1/2 kelly cracker coated in 3 mL Varibar pudding; 13 mm barium tablet Pictured above^ delayed swallow onset to PS w thin liquid via cup Pictured above^ aspiration w thin liquids PHYSIOLOGIC FINDINGS [id number] Component Scores: COMPONENT Scale SCORE 1 Lip closure (0-4) 1 Resulted in interlabial escape, without progression to anterior lip 2 Hold Position (0-3) 0 Maintained a cohesive bolus between tongue to palatal seal 3 Bolus Preparation (0-4) 1 Resulted in slow prolonged chewing/mashing with complete re-collection 4 Bolus Transport (0-4) 2 Was with slowed tongue motion 5 Oral Residue (0-4) 1 Was a trace, lining oral structures 6 Swallow Initiation (0-4) 3 Occurred when the bolus head was in the pyriform sinuses 7 Soft Palate Elevation (0-4) 0 Resulted in no bolus between soft palate and the pharyngeal wall 8 Laryngeal Elevation (0-3) 2 Was incomplete, with minimal superior movement of thyroid cartilage with minimal approximation of arytenoids to epiglottic petiole 9 Anterior Hyoid Motion (0-2) 1 Demonstrated partial anterior movement 10 Epiglottic Movement (0-2) 1 Resulted in partial inversion 11 Laryngeal Closure (0-2) 1 Was incomplete with narrow a column of air/contrast in laryngeal vestibule 12 Pharyngeal Stripping Wave (0-2) 1 Was present, but diminished 13 Pharyngeal Contraction (0-3) NA 14 PES Opening (0-3) 0 Was completely distended and complete duration with no obstruction of flow 15 Tongue Base Retraction (0-4) 2 Allowed a narrow column of contrast or air between the retracted tongue base and the posterior pharyngeal wall 16 Pharyngeal Residue (0-4) 2 Was a collection of residue within or on pharyngeal structures (vallecular > ps) [place] Pharyngeal Residue Severity Rating Scale? Vallecular: Mild Residue (5-25%) Pyriform Sinus: Trace Residue (1-5%) 17 Esophageal Clearance (0-4) 0 Was complete, with only a coating of contrast, if any Results: COMPONENT Scale SCORE 1 Oral Score (0-18) 6 2 Pharyngeal Score (0-29) 10 3 Esophageal Score (0-4) 0 DIGEST: COMPONENT Scale SCORE 1 Thin Max PAS (1-8) 8 Contrast entered the airway, passed below the vocal folds, and no effort was made to eject. 2 [place] Max PAS (1-8) 4 Contrast entered the airway, contacted the vocal folds, and was ejected from the airway. 3 Honey Max PAS (1-8) 3 Contrast entered the airway, remained above the vocal folds, and was not ejected from the airway. 4 Liquid Max PAS (1-8) 8 Maximum PAS Score over all liquid trials 5 Liquid Max Residue (0-3) 0 below 10% 6 Pudding Max PAS (1-8) 1 Contrast did not enter the airway 7 Pudding Max Residue (0-3) 1 10 - 49% 8 Cracker Max PAS (1-8) NA 9 Cracker Max Residue (0-3) NA 10 Frequency if PAS >= 3 (0-3) 2 Intermittent (under 50% of trials on a single consistency) 11 Amount if PAS >= 5 (0-1) 0 Not gross Results: COMPONENT Scale SCORE 1 SAFETY GRADE (0-4) 2 Safety grade for swallowing based on patterns of aspiration or laryngeal penetration 2 EFFICIENCY GRADE (0-4) 1 Efficiency grade of swallowing based on patterns of pharyngeal residue 3 DIGEST (0-4) 2 Severity grade of pharyngeal dysphagia: 0 - Normal, 1 - Mild, 2 - Moderate, 3 - Severe, 4 - Life threatening Previous as of 11/05/21: 1 = Mild Pharyngeal Impairment 4 Max Exam PAS (1-8) 8 Maximum PAS Score over all bolus trials 5 Max Exam Residue (0-3) 1 Maximum Exam Residue over all bolus trials Interaction of Assigned Safety and Efficiency Grades (0=No Impairment, 1=Mild, 2=Moderate, 3=Severe, 4=Life Threatening) ? Safety Grade? S0? S1? S2? S3? S4 Efficiency Grade ? E0 ? 0? 1? 2? 3? 3 E1 ? 1? 1? 2? 3? 3 E2 ? 1? 2? 2? 3? 3 E3 ? 2? 2? 3? 3? 4 E4 ? 3? 3? 3? 4? 4 - Above score(s) represent swallowing events?without?application of compensatory techniques LIDIA Severity: 2/3 - Using TF for majority of nutritional needs at this time LEVEL 3 - Full PO: modified diet and/or independence - Moderate dysphagia; Total assist / supervision or strategies 2 or more diet consistencies restricted LEVEL 2 - Nonoral nutrition necessary - Moderate-severe dysphagia; Maximum assistance or use of strategies with partial PO only (tolerates at least 1 consistency safely with total use of strategies) Trialed Compensatory Strategies & Outcome: Maneuvers? Successful/Unsuccessful(+/-)? Postures Successful/Unsuccessful(+/-) [x] 3 second Preparatory Set? ?+/- [x] Chin Tuck Posture? ?+ [x] Cough? ? [] Posterior Head tilt?? ? Reflexive? ?none / Cued to follow TC and/or cough + re-swallow technique with all liquids ? ? Cued? ?x ? ? [x] Throat Clear? ? [] Head Tilt to?? ? Reflexive? ?none Left? ? Cued? ?x Right? ? [x] Saliva swallow? ?+ [x] Head Turn/Rotation to? ? [] Supraglottic Swallow?? ? Left? ? [] Super-supraglottic Swallow?? ? x Right? ?? - unable to view under fluoro due to change in head position within frame Bolus Modifications ? Successful/Unsuccessful (+/-) [x] Delivery/Alternating Consistencies x Follow with Liquid Wash Follow with Solid Bolus? ?+ [x] Delivery/Via Straw? ?+ [x] Reduced Volume? ?+ [] Reduced Rate of Intake? ? [x] Increased Viscosity? ?+ [] Other:?? ? Coding CPT Codes MOTION FLUOROSCOPY/SWALLOW - [id number] ([id number])
--- NOTE | 2022-03-05 14:30 | DI.RAD_ITS ---
Exam(s) RF MODIFIED SPEECH BA SWALLOW EXAM: RF MODIFIED SPEECH BA SWALLOW CLINICAL HISTORY: TONSIL CA, C09.9, S/P CHEMORADIOTHERAPY, SWALLOWING EVALUTION TECHNIQUE: 2D and realtime digital imaging was performed. COMPARISON: No exams were available for comparison FINDINGS: Fluoroscopy was provided for modified barium swallow, please see the speech pathologist's note. IMPRESSION: RADIATION DOSE DELIVERED: sarah Reilly=5.23 mGy Total DLP
[2022-03-05] MEDS: Barium Sulfate 700 MG TAB PO (15:18)
[2022-03-05] MEDS: Barium Sulfate Oral Paste 40% W/V 230 ML TUBE 13 ML PO (15:19)
[2022-03-05] MEDS: Barium Sulfate 40% W/V 1500 CPS 250 ML BTL PO (15:20)
[2022-03-05] MEDS: Barium Sulfate 81% w/w for Oral Suspension 148 GM BTL PO (15:21)
[2022-03-05] MEDS: Barium Sulfate 40% W/V 240 ML BTL PO (15:21)
== END ==
PROVIDERS: PCP Family Medicine; Visit Provider Preventive Medicine Undersea and Hyperbaric Medicine
DX: C09.9 Malignant neoplasm of tonsil, unspecified (principal)
CPT/HCPCS: 92611; 74221

== ENCOUNTER 2022-04-14 10:01 | Outpatient (RCR) | payer MEDICARE, OTHER, SELFPAY ==
[2022-04-14] MEDS: Heparin 500 UNITS/5 ML SYRINGE (12:15)
[2022-04-14] MEDS: Normal Saline Flush 10 ML SYR IVP (12:16)
[2022-04-14 12:38] LABS: Abs Immature Grans 0.02 10^3/uL (0.0-0.06); Absolute Basophil Count 0.01 10^3/uL (0.0-0.2); Absolute Lymphocyte Count 0.55 10^3/uL (1.2-3.4); Absolute Monocyte Count 0.68 10^3/uL (0.1-0.8); Absolute Neutrophil Count 5.42 10^3/uL (1.2-6.7); Basophils % 0.1; Eosinophils % 1.5; HCT 43.1 % (40.0-50.0); HGB 13.8 g/dL (13.5-17.5); Immature Grans % 0.3; Lymphocytes % 8.1; MCH 31.4 pg (27.0-33.0); MCV 98 fL (80-95); Platelet Count 326 10^3/uL (130-400); RBC 4.39 10^6/uL (4.36-5.78); RDW 13.2 % (11.8-14.1); RDW-SD 46.9 fL; WBC 6.78 10^3/uL (4.4-10.8)
[2022-04-14 12:53] LABS: ALT 15 U/L (16-63); AST 13 U/L (15-37); Alkaline Phosphatase 75 U/L (46-116); Anion Gap 9.7 mmol/L (3-11); BUN 23 mg/dL (7-18); Bilirubin, Total 0.7 mg/dL (0.2-1.0); CO2 27.3 mmol/L (21.0-32.0); Calcium 9.3 mg/dL (8.5-10.1); Chloride 106 mmol/L (98-107); Glucose 103 mg/dL (74-106); Magnesium 1.4 mg/dL (1.8-2.4); Potassium 3.9 mmol/L (3.5-5.1); Sodium 143 mmol/L (136-145); Total Protein 8.1 g/dL (6.4-8.2)
== END 2022-05-07 23:59 | disposition home or self-care (01) ==
LOC: INF 10:01
PROVIDERS: PCP Family Medicine; Visit Provider Internal Medicine Hematology & Oncology
DX: C09.9 Malignant neoplasm of tonsil, unspecified (principal); Z45.2 Encounter for adjustment and management of vascular access device
CPT/HCPCS: 36591; 80053; 83735; 85025

== ENCOUNTER 2022-05-13 08:04 | Outpatient (RCR) | payer MEDICARE, OTHER, SELFPAY ==
[2022-05-13] MEDS: Normal Saline Flush 10 ML SYR IVP (09:36)
[2022-05-13] MEDS: Heparin 500 UNITS/5 ML SYRINGE IV (09:37)
== END 2022-06-06 23:59 | disposition home or self-care (01) ==
LOC: INF 08:04
PROVIDERS: PCP Family Medicine; Visit Provider Internal Medicine Hematology & Oncology
DX: Z45.2 Encounter for adjustment and management of vascular access device (principal)
CPT/HCPCS: 96523

== ENCOUNTER 2022-05-25 15:05 | Emergency (ER) | payer MEDICARE, OTHER, SELFPAY ==
[2022-05-25 15:10] VITALS: BP 131/65; PULSE 53; RESP 17; TEMP 36.5
--- NOTE | 2022-05-25 16:15 | DI.RAD_ITS ---
Exam(s) XR HIP RT COMPLETE AP PELVIS EXAM: XR HIP RT COMPLETE AP PELVIS CLINICAL HISTORY: R groin/hip pain, r/o arthritis, fx. TECHNIQUE: 2D digital imaging was performed. COMPARISON: CR XR HIP LT COMPLETE AP PELVIS from 07/08/2021 FINDINGS: 3 views No evidence of pelvic nor hip fracture. Moderate degenerative changes in the right hip again evident . Left hip prosthesis again noted. IMPRESSION: No fracture evident. DATA REPOSITORY: RADIATION DOSE DELIVERED:
--- NOTE | 2022-05-25 16:22 | ED.GENADUL_ITS ---
Discharge Plan Disposition Patient Disposition: HOME Condition: Improving Discharge Details Clinical Impression: Right groin pain, Right hip pain Primary Care Provider: Beatriz Cotton V ED Provider: Marquita Dick Home Meds and New Rx's Prescriptions: New methocarbamol 500 mg tablet 500 mg PO Q6H PRN (Reason: muscle spasm) Qty: 14 0RF Continued amoxicillin 500 mg tablet 2,000 mg feeding tube .PROIR TO DENTAL meclizine 25 mg Tablet 25 mg feeding tube Q6H PRN albuterol sulfate 8.5 GM HFA aerosol inhaler 2 puff Inhalation Q4H levothyroxine 125 mcg capsule 62.5 mcg PO DAILY omeprazole 40 mg capsule,delayed release(DR/EC) 40 mg feeding tube QPM metformin 500 MG tablet extended release 24 hr 500 mg PO BID bisoprolol fumarate 10 MG tablet 5 mg feeding tube DAILY docusate sodium 50 mg/5 mL Liquid 50 mg feeding tube PRN PRN sennosides [senna] 8.8 mg/5 mL Syrup 8.8 mg feeding tube PRN PRN prochlorperazine maleate 10 mg Tablet 10 mg feeding tube HS naloxone [Narcan] 4 mg/actuation spray,non-aerosol 1 spray intranasal Q2-3M PRNQty: 1 0RF Rx Instructions: spray 1 dose into ONE nostril; alternate nostrils w each dose until help arrives aspirin 81 mg tablet,delayed release (DR/EC) 81 mg feeding tube DAILY fluoxetine 20 mg/5 mL (4 mg/mL) solution 40 mg UD DAILY diphenhydramine-acetaminophen 25-500 mg-mg/mL Solution 30 ml HS Discharge Instructions Instructions: Groin Strain (ED), Hip Pain (ED) Additional Instructions: Your x-ray today notes arthritis but no evidence of fracture. Your symptoms may be secondary to arthritis, muscle strain or spasm. Alternate tylenol and motrin as needed and directed for pain. A prescription for muscle relaxers has been sent electronically to your pharmacy. Call the orthopedics office tomorrow to schedule a follow-up appointment for reevaluation. Return immediately to the emergency department if you develop any worsening or new concerning symptoms. Referrals: Abhi Espinal MD [ [facility] STAFF PHYSICIAN] - Discharge Data Discharge Date/Time-TO BE ENTERED AT DEPARTURE: 09/18/22 18:12 Discharge Physician: Marquita Dick Medical Decision Making 71-year-old male presents with a history of left hip replacement and bilateral knee replacements with history of osteoarthritis presents with right groin and hip pain for the past 2 days, worse with weightbearing. He denies any known injury, fever, urinary or GI symptoms. His vitals are within normal limits. He is afebrile and appears nontoxic. His right hip is normal to inspection but with tenderness to palpation in the right groin and right lateral hip. He has fairly good range of motion in his right hip without significant limitation but with some pain. There is no clicking or laxity. He has neurovascular intact. History and presentation does not appear consistent with septic joint, kidney stone. Will give a dose of Tylenol, ibuprofen, oxycodone and refer for x-rays. X-ray notes degenerative changes but no acute fracture. Patient reassessed and his pain is improved. Discussed with patient that his symptoms can be secondary to arthritis and/or muscle spasm or groin strain. Will send home with oxycodone and methocarbamol. A prescription for methocarbamol sent electronically to his pharmacy. Advised to call orthopedics this week for follow-up. Usual and customary return precautions given prior to discharge. Medical Records Medical records reviewed: Yes I reviewed the patient's medical records. Imaging Data Radiologic Study: Radiologist's impression: XR HIP RT COMPLETE ? AP PELVIS CLINICAL HISTORY: ? R groin/hip pain, r/o arthritis, fx. ? TECHNIQUE:? 2D digital imaging was performed. COMPARISON:? CR XR HIP LT COMPLETE ? AP PELVIS from 07/08/2021 FINDINGS: 3 views No evidence of pelvic nor hip fracture.? Moderate degenerative changes in the right hip again evident.? Left hip prosthesis again noted. HPI General Mode of arrival: ambulatory . Date/Time Provider Initiated Documentation: 05/25/22 15:06 . Limitations to Documentation: no limitations . Information obtained by: patient . HPI Narrative: Patient is a 71-year-old male presents with right groin and hip pain for the past few days, worse with walking and standing. He states the pain is radiating occasionally from his right hip and groin down his right lateral thigh . patient states he took Aleve this week for pain without relief. He denies any significant pain at rest but states it mainly occurs with weightbearing. He denies any known injury. He states he was sitting mowing the lawn yesterday. He denies any fever, vomiting, abdominal pain, urinary symptoms or lower back pain. Related Data Home Medications Medication Instructions Recorded Confirmed metformin 500 mg tablet,extended 500 mg PO BID 04/07/14 05/25/22 release 24 hr albuterol sulfate 90 mcg/actuation 2 puff inhalation Q4H 10/16/14 05/25/22 aerosol inhaler amoxicillin 500 mg tablet 2,000 mg feeding tube .PROIR TO 01/04/19 01/13/22 DENTAL meclizine 25 mg tablet 25 mg feeding tube Q6H PRN 06/28/20 05/25/22 levothyroxine 125 mcg capsule 62.5 mcg PO DAILY 09/10/21 05/25/22 omeprazole 40 mg capsule,delayed 40 mg feeding tube QPM 09/10/21 05/25/22 release aspirin 81 mg tablet,delayed 81 mg feeding tube DAILY 01/02/22 05/25/22 release bisoprolol fumarate 10 mg tablet 5 mg feeding tube DAILY 01/06/22 05/25/22 docusate sodium 50 mg/5 mL oral 50 mg feeding tube PRN PRN 01/06/22 05/25/22 liquid prochlorperazine maleate 10 mg 10 mg feeding tube HS 01/06/22 05/25/22 tablet sennosides 8.8 mg/5 mL oral syrup 8.8 mg feeding tube PRN PRN 01/06/22 05/25/22 (senna) naloxone 4 mg/actuation nasal 1 spray intranasal Q2-3M PRN #1 ea 01/09/22 01/13/22 spray (Narcan) diphenhydramine 25 30 ml HS 01/13/22 05/25/22 mg-acetaminophen 500 mg/15 mL oral solution fluoxetine 20 mg/5 mL (4 mg/mL) 40 mg UD DAILY 01/13/22 05/25/22 oral solution methocarbamol 500 mg tablet 500 mg PO Q6H PRN muscle spasm #14 05/25/22 tabs Previous Rx's Medication Instructions Recorded naloxone 4 mg/actuation nasal 1 spray intranasal Q2-3M PRN #1 ea 01/09/22 spray (Narcan) methocarbamol 500 mg tablet 500 mg PO Q6H PRN muscle spasm #14 05/25/22 tabs Allergies Allergy/AdvReac Type Severity Reaction Status Date / Time ceftriaxone Allergy Severe ANAPHYLAXIS Verified 05/25/22 15:12 Cephalosporins Allergy Severe Anaphylaxsi Verified 05/25/22 15:12 s ciprofloxacin AdvReac Dizziness/L Verified 05/25/22 15:12 ightheade fentanyl AdvReac Agitation, Unverified 05/25/22 15:12 confusion meperidine HCl [From Demerol] AdvReac vomiting Verified 05/25/22 15:12 morphine AdvReac vomiting Verified 05/25/22 15:12 General Stated Complaint: Orthopedic CASIMIRO: 3 Review of Systems All systems reviewed & are unremarkable except as noted in HPI and below Constitutional Constitutional: Reports as per HPI, Denies chills and Denies fever(s) Eyes Eyes: Denies blurry vision ENT Ears, Nose, Mouth, and Throat: Denies dizziness, Denies sore throat and Denies throat swelling Cardiovascular Cardiovascular: Denies chest pain and Denies dyspnea Respiratory Respiratory: Denies cough and Denies dyspnea Gastrointestinal Gastrointestinal: Denies abdominal pain, Denies diarrhea and Denies vomiting Genitourinary Genitourinary: Denies hematuria and Denies dysuria Musculoskeletal Musculoskeletal: Denies back pain and Denies numbness Comments: R groin/hip pain Integumentary/Breasts Skin/Breast: Denies lesions and Denies rash Neurologic Neurologic: Denies dizziness, Denies localized weakness and Denies numbness Allergic/Immunologic Allergic/Immunologic: Denies throat swelling PFSH All Active Problems (Updated 05/25/22 @ 17:52 by Marquita Dick DO) Hypoglycemia (Acute) Hypomagnesemia (Acute) Right groin pain (Acute) Right hip pain (Acute) Dysphagia (Chronic) 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 (Acute) Squamous cell carcinoma of tonsil (Acute) Cervical lymphadenopathy (Acute) Tonsillar mass (Acute) Sleep apnea (Acute) Unintentional weight loss (Acute) Swallowing problem (Acute) Abnormal laboratory test (Acute) Screening for colon cancer (Acute) Chest pain (Acute) Asthma (Chronic) Medical History Arthralgia Back pain, acute Bradycardia Chondromalacia patellae of left knee Chronic low back pain Colon polyps Dehydration Depression Diabetic peripheral neuropathy Diverticulosis DJD of right AC (acromioclavicular) joint Essential tremor (11/21/14) Fatigue GERD (gastroesophageal reflux disease) Headache Cervical Hip pain, left History of tobacco use HTN (hypertension) Hyperlipemia Hypomagnesemia Hypotension Hypothyroidism 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) Insect bite Internal derangement of left knee Lumbosacral neuritis Neck pain on left side Obesity Osteoarthritis of left knee Primary osteoarthritis of right hip Prolonged depression Psoriasis Radicular syndrome of lower limbs Resting tremor Right rotator cuff tear Injection under fluoroscopy: 11/04/18 Status post rotator cuff repair DOS: 01/25/2019 Septic arthritis of knee Septic joint Shoulder pain, left Shoulder pain, right Trigeminy URI, acute Vertigo Vitamin B12 deficiency Surgical History 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 Trochanteric bursitis, left hip S/P debridement with IT band lengthenin08/12/2021 Family History Father Heart disease Brother Tremor Son Seizure Mother Osteoarthritis Social History Smoking/Tobacco Use Status: Former Tobacco Use Quit Date: 09/07/79 Pack-years: 1 Smoking risk assessment performed?: Yes Alcohol Intake: never Drug use: Never Substance use type: does not use Household members: children Housing: house Number of Children: 2 current occupation: Retired Current gender identity: male What type of physical activity do you participate in: independent ambulation Do you feel safe at home: Yes Do you feel safe in your relationship?: Yes Exam Const General: cooperative, healthy appearing and no acute distress Orientation: alert, awake and oriented x3 HENMT Head: normal to inspection Mouth: oral mucosae normal Eyes General: appearance normal, both eyes and all related structures Neck Neck: normal visual inspection Resp Effort & Inspection: normal respiratory effort and able to speak in complete sentences Cardio Rate: regular rate Back/Spine/Pelvis Thoracic/Lumbar Spine: thoracic and lumbar spine normal to inspection and No lumbar spinal tenderness Sacrum: no ecchymosis, no erythema, no swelling and no tenderness Skin General skin exam: no rashes or lesions noted Neuro General: patient alert, patient awake and patient oriented x3 Motor: muscle tone normal throughout Extrem General: normal to inspection Upper/lower leg/hip images: 1. Tenderness to palpation to right groin and right lateral hip. There is minimal pain with range of motion but no significant limitation of range of motion. Right groin appears normal to inspection without erythema, lymphadenopathy or evidence of trauma. Other: B/L DP/PT pulses intact. Normal range of motion of left lower extremity without pain or limitation. Normal range of motion in right knee without pain. Psych Appearance: grossly normal Affect: normal affect Course Vital Signs Vital signs: Vital Signs Temperature 97.7 F 05/25/22 15:10 Pulse 53 L 05/25/22 15:10 Respiratory Rate 17 05/25/22 15:10 Blood Pressure 131/65 05/25/22 15:10 Temperature 97.7 F 05/25/22 15:10 Temperature Source Tympanic 05/25/22 15:10 Pulse 53 L 05/25/22 15:10 Respiratory Rate 17 05/25/22 15:10 Respiratory Effort 05/25/22 15:41 Blood Pressure 131/65 05/25/22 15:10 Oxygen Delivery Method Room Air 05/25/22 15:10 Oxygen Flow Rate 0 05/25/22 15:10 Pain Level 8 05/25/22 15:10 Comment 05/25/22 15:10
[2022-05-25] MEDS: Acetaminophen 325 MG TAB 650 MG PO (16:56)
[2022-05-25] MEDS: Ibuprofen 600 MG TAB PO (16:57)
--- NOTE | 2022-05-25 17:25 | DI.VRAD_ITS ---
PROCEDURE INFORMATION: Exam: XR Right Hip Exam date and time: 05/25/2022 4:58 PM Age: 71 years old Clinical indication: Other: R groin/hip pain; R/O arthritis, FX TECHNIQUE: Imaging protocol: Radiologic exam of the Right hip. Views: 2 or 3 views hip with pelvis when performed. COMPARISON: CR XR PELVIS AP 08/23/2019 8:41 AM FINDINGS: Bones/joints: Left total hip replacement. Degenerative changes in the right hip. There is no evidence of acute fracture.There is no evidence of malalignment or dislocation. Soft tissues: Unremarkable. IMPRESSION: 1. Left total hip replacement. 2. There is no evidence of acute fracture.There is no evidence of malalignment or dislocation. Dictated and Authenticated by: Esperanza Vera MD. Ordering:SHANNON Juárez MD
[2022-05-25] MEDS: Methocarbamol 500 MG TAB 1000 MG PO (18:07)
== END 2022-05-25 18:12 | disposition home or self-care (01) ==
PROVIDERS: Emergency Provider Physician Assistant; PCP Family Medicine
DX: R10.31 Right lower quadrant pain (principal); M25.552 Pain in left hip; I10 Essential (primary) hypertension; E11.40 Type 2 diabetes mellitus with diabetic neuropathy, unspecified; M16.11 Unilateral primary osteoarthritis, right hip; Z87.891 Personal history of nicotine dependence; Z96.642 Presence of left artificial hip joint; Z96.653 Presence of artificial knee joint, bilateral; Z79.84 Long term (current) use of oral hypoglycemic drugs; Z79.82 Long term (current) use of aspirin
CPT/HCPCS: 99283; 73502; 99284

== ENCOUNTER → 2022-06-03 01:39 | Outpatient (CLI) | payer MEDICARE, OTHER, SELFPAY ==
--- NOTE | 2022-06-03 | DI.US_ITS ---
Exam(s) US HERNIA EXAM: US HERNIA CLINICAL HISTORY: SHARP INTERMITTENT RLQ PAIN, R10.31,PALPABLE AREA OF FULLNESS,? RT INGUINAL. TECHNIQUE: Ultrasound was performed using standard protocol. COMPARISON: No exams were available for comparison FINDINGS: Sonographic assessment utilizing grayscale and color Doppler imaging was performed and targeted to th e area of clinical concern. Sonographic evaluation of the right inguinal region suggestive fat containing inguinal hernia. CT sc an may be considered for further evaluation. IMPRESSION: DATA REPOSITORY:
== END ==
PROVIDERS: PCP Family Medicine; Visit Provider Nurse Practitioner Family
DX: K40.90 Unilateral inguinal hernia, without obstruction or gangrene, not specified as recurrent (principal)
CPT/HCPCS: 76857; 87635

== ENCOUNTER 2022-06-03 02:59 | Outpatient (CLI) | payer MEDICARE, OTHER, SELFPAY ==
[2022-06-03 14:30] LABS: Source Nasal/Nares
[2022-06-04 04:57] LABS: COVID-19 PCR Negative (Negative)
== END 2022-06-03 03:00 | disposition home or self-care (01) ==
LOC: LBO 02:59
PROVIDERS: PCP Family Medicine; Visit Provider Family Medicine
DX: Z20.822 Contact with and (suspected) exposure to COVID-19 (principal); Z12.11 Encounter for screening for malignant neoplasm of colon; Z86.010 Personal history of colon polyps
CPT/HCPCS: 87635

== ENCOUNTER → 2022-06-04 02:08 | Outpatient (CLI) | payer MEDICARE, OTHER, SELFPAY ==
[2022-06-04] MEDS: Barium Sulfate 700 MG TAB PO (15:20)
--- NOTE | 2022-06-04 15:20 | DI.RAD_ITS ---
Exam(s) RF MODIFIED SPEECH BA SWALLOW EXAM: RF MODIFIED SPEECH BA SWALLOW CLINICAL HISTORY: TONSIL CANCER C09.9, S/P CHEMO PLEASE ASSESS SWALLOWING TECHNIQUE: 2D and realtime digital imaging was performed. COMPARISON: No exams were available for comparison FINDINGS: Fluoroscopy was utilized during a modified barium swallow. Please see the speech pathologist's repor t. IMPRESSION: RADIATION DOSE DELIVERED: sarah Reilly=8.99 mGy Total DLP
--- NOTE | 2022-06-04 15:22 | ST.MBS_ITS ---
Date of Service Date of service: 06/04/22 Time of Service: 02:45 Modified Barium Swallow Study Findings: Videofluoroscopic Swallowing Evaluation (VFSE) / Modified Barium Swallow Study (MBSS) Speech Language Pathology Report HPI: Patient referred for repeat MBSS from Dr Reyez ([facility] [place]) given recent dysphagia in setting of tonsilar cancer, has since completed concurrent chemo and radiotherapy as of 12/30/21 and completed HEP with treating LABOR RELATIONS OFFICER Berna Carter via [facility]. ? PMHx: DM2, asthma, essential tremor, depression, GERD, bradycardia. ? ? Surgical History: Left total knee replacement (failed) - 2018 Arthroscopic rotator cuff repair ( R ) - 2019 Total hip replacement. PEG tube placement 10/31/21 SUBJECTIVE: Patient reports occasional globus primarily to meat, usually benefits from liquid wash. Otherwise feels he is coughing/choking less often and overall more comfortable with swallow fxn. No longer with any oral pain. He does complain of ?hernia today, awaiting results from provider. HE also reports always taking very small bites and sips. IMPRESSIONS: Swallow safety is mildly impaired; swallow efficiency is mildly impaired. Findings this date do indicate some imrpovement over previous, primarily due to reduced frequency of aspiration (singular event this date). See additional details of comparison scores in objective data below. Mild-mod [id number] oropharyngeal dysphagia, characterized by physiologic deficits as outlined below, and resulting in ?silent (patient does demonstrate mild but innefective throat clear, does not endorse sensation) aspiration during the swallow, mild residue in valleculae as well as trace residue in pyriform sinuses; suspect dysphagia presentation due to effects from recent ASSISTANT PROFESSOR OF THEATER to address R sided tonsil cancer, possible radiation fibrosis, disuse atrophy. Patient appears to be at mild risk for potential aspiration PNA and/or pulmonary compromise and low-mild for malnutrition, low risk for dehydration. Diet modification is indicated; non-oral nutrition is indicated. Swallow prognosis is good-fair given motivation to participate in skilled treatment (+), family support (+), expected levels of radiation fibrosis (-), and pending patient/caregiver training in risk management as outlined, including use of trialed compensatory strategies as outlined above.Patient appears to be a good candidate for behavioral swallow rehabilitation.? Specialist referrals:?N/A Ancillary tests: N/A Diet texture recommendation:? IDDSI Level [x] 7-Regular/Easy to Chew Solids [x] 0-Thin Liquids Please see further details at?[email or web address].org Diet texture modification is per patient's preference; please adjust diet textures at patient's discretion & collaboration with care team. Risk Management:? [x] Behavioral reflux precautions, including upright position during + 90 mins after meals. [x] Small bites, approx [id number] [x] Small sips, approx 10 mL [x] Alternate solids/liquids as able [x] Multiple swallows per bolus to encourage clearance of pharyngeal stasis/residue Control risk factors for aspiration pneumonia via (a) thorough oral hygiene & (b) maintaining physical mobility as tolerated PLAN: Therapy: Recommend subsequent outpatient session with LABOR RELATIONS OFFICER to review results of today's exam and develop treatment plan as appropriate. May consider the following: Compensatory strategies:? - chin tuck - cough+reswallow Exercise: - effortful swallow - Shaker - CTAR - BOT - Tamica - Amelia Goal: TBD pending patient/caregiver interview Follow-up exam: N/A Thank you for allowing me to take part in this patient's care. Please feel free to contact me with any questions/concerns. Nicky Brewster MS, [facility]LABOR RELATIONS OFFICER Speech Language Pathologist [phone] OBJECTIVE: Videofluoroscopic Swallow Evaluation (VFSE/MBSS) was conducted in the lateral projection by Speech-Language Pathologist, in collaboration with Radiologist, to evaluate oropharyngeal swallow function. Anatomic view under fluoroscopy: [x] WFL PO Barium Contrast Trials Oral barium water-soluble contrast was administered as follows: IDDSI Level 0 Varibar thin liquid (40% w/v) IDDSI Level 2 Varibar nectar thick/mildly thick liquid (40% w/v) IDDSI Level 4 Varibar pudding/pureed/extremely thick (40% w/v) IDDSI Level 7 Regular Solid: 1/2 kelly cracker coated in 3 mL Varibar pudding; 13 mm barium tablet PHYSIOLOGIC FINDINGS MBSImP Component Scores: COMPONENT Scale SCORE 1 Lip closure (0-4) 0 (prev: 1) Resulted in no labial escape 2 Hold Position (0-3) 2 (prev: 0) Resulted in posterior escape of less than half of the bolus 3 Bolus Preparation (0-4) 0 (prev: 1) Resulted in timely and efficient chewing and mashing 4 Bolus Transport (0-4) 2 (unchanged) Was with slowed tongue motion 5 Oral Residue (0-4) 1 (unchanged) Was a trace, lining oral structures 6 Swallow Initiation (0-4) 3 (unchanged) Occurred when the bolus head was in t he pyriform sinuses 7 Soft Palate Elevation (0-4) 0 (unchanged) Resulted in no bolus between soft palate and the pharyngeal wall 8 Laryngeal Elevation (0-3) 1 (prev: 2) Was decreased with partial superior movement of thyroid cartilage/partial approximation of arytenoids to epiglottic petiole 9 Anterior Hyoid Motion (0-2) 1 (unchanged) Demonstrated partial anterior movement 10 Epiglottic Movement (0-2) 0 (prev: 1) Resulted in complete inversion 11 Laryngeal Closure (0-2) 1 (unchanged) Was incomplete with narrow a column o f air/contrast in laryngeal vestibule A 12 Pharyngeal Stripping Wave (0-2) 1 (unchanged) Was present, but diminished 13 Pharyngeal Contraction (0-3) NA 14 PES Opening (0-3) 1 (prev: 0) Demonstrated partial distension/partial duration, with partial obstruction of flow (distension was brief) 15 Tongue Base Retraction (0-4) 2 (unchanged) Allowed a narrow column of contrast or air between the retracted tongue base and the posterior pharyngeal wall 16 Pharyngeal Residue (0-4) 2 (unchanged) Was a collection of residue within o r on pharyngeal structures (vallecular>PES) Janie Pharyngeal Residue Severity Rating Scale? Vallecular: Mild Residue (5-25%) Pyriform Sinus: Trace Residue (1-5%) 17 Esophageal Clearance (0-4) NA Results: COMPONENT Scale SCORE 1 Oral Score (0-18) 7I previous score: 6 (mild decline, likely incidental) 2 Pharyngeal Score (0-29) 9 previous score: 10 (mild improvement) 3 Esophageal Score (0-4) n/a Dysphagia Outcome and Severity Scale: COMPONENT ScaleJ SCORE 1 LEVEL (1-7) 5 Full PO: Modified Diet and/or [place] - Mild dysphagia; Distant supervision may need 1 diet consistency restricted Penetration-Aspiration Scale: COMPONENT ScaleJ SCORE 1 Thin liquid (1-8) 8 Contrast entered the airway, passed below the vocal fold s, and no effort was made to eject. Patient did make CUED effort to eject which appeared successful to clear subglottic residue) 2 [place] thick (1-8) 1 Contrast did not enter the airway 3 Honey thick (1-8) NA 4 Pudding thick (1-8) 1 Contrast did not enter the airway 5 Cookie (1-8) 1 Contrast did not enter the airway Functional Oral Intake Scale: COMPONENT Scale SCORE 1 Pre-Study (1-7) 6 Total oral intake with no special preparation, but must avoid specific foods or liquid items 2 Post-StudyA (1-7) 6 Total oral intake with no special preparation, but must avoid specific foods or liquid items DIGEST: COMPONENT Scale SCORE 1 Thin Max PAS (1-8) 8 Contrast entered the airway, passed below the vocal folds, and no effort was made to eject. 2 [place] Max PAS (1-8) 1 (PREVIOUS: 4) Contrast did not enter the airway 3 Honey Max PAS (1-8) NA 4 Liquid Max PAS (1-8) 8 Maximum PAS Score over all liquid trials 5 Liquid Max Residue (0-3) 0 below 10% 6 Pudding Max PAS (1-8) 1 Contrast did not enter the airway 7 Pudding Max Residue (0-3) 0 below 10% 8 Cracker Max PAS (1-8) 1 Contrast did not enter the airway 9 Cracker Max Residue (0-3) 1 10 - 49% 10 Frequency if PAS >= 3 (0-3) 0 (PREVIOUS: 2/intermittent) Single event 11 Amount if PAS >= 5 (0-1) 0 Not gross Results: COMPONENT Scale SCORE 1 SAFETY GRADE (0-4) 1 (PREVIOUS: 2) Safety grade for swallowing based on patterns of aspiration or laryngeal penetration 2 EFFICIENCY GRADE (0-4) 1 Efficiency grade of swallowing based on patterns of pharyngeal residue 3 DIGEST (0-4) 1 (PREVIOUS: 2) Severity grade of pharyngeal dysphagia: 0 - Normal, 1 - Mild, 2 - Moderate, 3 - Severe, 4 - Life threatening 4 Max Exam PAS (1-8) 8 Maximum PAS Score over all bolus trials 5 Max Exam Residue (0-3) 1 Maximum Exam Residue over all bolus trials Interaction of Assigned Safety and Efficiency Grades (0=No Impairment, 1=Mild, 2=Moderate, 3=Severe, 4=Life Threatening) ?? Safety Grade?? S0?? S1?? S2?? S3?? S4 Efficiency Grade? E0? ?? 0?? 1?? 2?? 3?? 3 E1? ?? 1?? 1?? 2?? 3?? 3 E2? ?? 1?? 2?? 2?? 3?? 3 E3? ?? 2?? 2?? 3?? 3?? 4 E4? ?? 3?? 3?? 3?? 4?? 4 - Above score(s) represent swallowing events?without?application of compensatory techniques Trialed Compensatory Strategies & Outcome: Maneuvers?? Successful/Unsuccessful(+/-)?? Postures? Successful/Unsuccessful( +/- ) [x] 3 second Preparatory Set?? ?-? [x]?Chin Tuck Posture?? ?+/- [x]?Cough? [] Posterior Head tilt? Reflexive?? ?n/a ?? ? Cued?? ?+? [x] Throat Clear? [] Head Tilt to? Reflexive?? ?- mild tc Left?? ? Cued?? ? Right?? ? [x] Saliva swallow?? ?+? [] Head Turn/Rotation to?? ? [] Supraglottic Swallow? Left?? ? [] Super-supraglottic Swallow? Right? - unable to view under fluoro due to change in head position within frame H Bolus Modifications ?? Successful/Unsuccessful (+/-) [x] Delivery/Alternating Consistencies x Follow with Liquid Wash Follow with Solid Bolus?? ?+/- [] Delivery/Via Straw?? ?+ [x] Reduced Volume?? ?+/- [] Reduced Rate of Intake?? ? [x] Increased Viscosity?? ?+ [] Other:? Pictured above^ penetration to VF w thin liquids after 3 sec hold Pictured above^ post-swallow aspiration of laryngeal residue (same trial, thin liquids after 3 sec hold) Coding CPT Codes MOTION FLUOROSCOPY/SWALLOW - [id number] ([id number])
[2022-06-04] MEDS: Barium Sulfate Oral Paste 40% W/V 230 ML TUBE PO (15:23)
[2022-06-04] MEDS: Barium Sulfate 81% w/w for Oral Suspension 148 GM BTL 70 GM PO (15:25)
== END ==
PROVIDERS: PCP Family Medicine; Visit Provider Speech-Language Pathologist
DX: R13.10 Dysphagia, unspecified (principal); C09.9 Malignant neoplasm of tonsil, unspecified
CPT/HCPCS: 92611; 74221

== ENCOUNTER 2022-06-09 09:16 | Observation (INO) | payer MEDICARE, OTHER, SELFPAY ==
[2022-06-09] VITALS (14 sets, daily range): BP systolic 108–168; BP diastolic 62–99; PULSE 46–82; RESP 12–20; TEMP 35.6–36.7; O2SAT 95–98; BMI 28.8
--- NOTE | 2022-06-09 10:15 | W.ED.GENAD ---
Discharge Plan Disposition Patient Disposition: [facility] INPATIENT Condition: Good Discharge Details Chief Complaint: Abd Prob Clinical Impression: Right inguinal hernia Admit Date/Time: 06/09/22 17:03 Admit Provider: Arnie Mckeon Attending Provider: Arnie Mckeon Primary Care Provider: Beatriz Cotton V ED Provider: Jessica Colvin Discharge Instructions Activity:: No heavy lifting Remove Dressings/Wound Care:: 24 hours Shower/Bathe:: 24 hours Activity:: Activity as Tolerated Equipment/Supplies:: No Equipment Needed Diet:: As Tolerated Discharge Data Discharge Date/Time-TO BE ENTERED AT DEPARTURE: 06/09/22 13:59 Medical Decision Making Patient is a pleasant 72-year-old male, accompanied by son, with chief complaint of right lower quadrant pain. Patient reports that he has a known right inguinal hernia which is being followed for by our general surgery team. He reports he was seen by them last and ultrasound was obtained as general surgery she was not able to reduce this. Surgeon recommended trying to take it easy over the weekend and that they would discuss continued management of patient reports that pain has significantly increased and that he is now having difficulty with ambulation secondary to severe pain with any type of heel strike. He reports that he is passing flatus and having normal bowel movements. No change in his p.o. intake, he did have breakfast at 630 this morning. He will remain n.p.o. from this point forward. He denies any nausea or vomiting. Has not noted any fevers or chills. Past surgical history is pertinent for cholecystectomy, multiple orthopedic surgeries. Past medical history significant for diabetes, GERD, hypertension, hypothyroid, depression. On exam, patient appears nontoxic. Vital signs are stable. Ferritin was slightly low at 52 but this appears baseline for the patient. His lungs are clear, normal cardiac exam. Abdomen is benign aside from the right inguinal area. He does have an umbilical hernia as well but this area is nontender. Right inguinal area is significant for a firm, mobile hard palpable hernia that is exquisitely tender with gentle palpation. No overlying erythema, warmth. Unable to reduce the easily. Given the patient's discomfort, will try to treat the patient's pain and reassess. He states that he did contact the general surgery team who recommended US. However, afdter review of recent US, will obtain CT. Primarily concerned for incarcerated hernia. He does have umbilical hernia but this area is nontender and reported to be chronic per patient. Labs concerning for elevated lactate of 2.3. No leukocytosis. Contacted by radiologist, fat contatining right inguinal hernia. Will consult with general surgery given incarcerated state and severe pain that is significantly limiting ADLs. Spoke with Dr. Mckeon who advised that patient will require surgical intervention of the incarcerated hernia. Patient has beeen NPO. Given allergy of narcotics, has received APAP with good results. Has been receiving IV fluids. At request of Dr. Mckeon, placed holding orders for admission with OR planned for this evening. Prior to going upstairs to medical surgical floor, patient taken to the OR for hernia repair with Dr. Mckeon. HPI General Date/Time Provider Initiated Documentation: 06/09/22 09:21. Limitations to Documentation: no limitations. Information obtained by: patient, RN notes reviewed and old records reviewed. History of Present Illness 72 year old M presents to the emergency department with the chief complaint of right inguinal hernia pain, described as severe, Quality is described as stabbing, and is localized to the abdomen. Patient extremity (when severe, pain can radiate down right anterior thigh). Patient started experiencing this hour(s) (severe pain only began more recewntly with slow onset of discomfort) and it has been constant. No relieving factors improve symptom(s), Movement worsens symptoms . Patient notes denies chest pain, cough, fever/chills, headaches, nausea/vomiting and shortness of breath. Patient did receive the following treatments prior to arrival, none Related Data Home Medications Medication Instructions Recorded Confirmed albuterol sulfate 90 mcg/actuation 2 puff inhalation Q4H 10/16/14 06/09/22 aerosol inhaler amoxicillin 500 mg tablet 2,000 mg feeding tube .PROIR TO 01/04/19 06/09/22 DENTAL meclizine 25 mg tablet 25 mg feeding tube Q6H PRN 06/28/20 06/09/22 levothyroxine 125 mcg capsule 62.5 mcg PO DAILY 09/10/21 06/09/22 omeprazole 40 mg capsule,delayed 40 mg feeding tube QPM 09/10/21 06/09/22 release aspirin 81 mg tablet,delayed 81 mg feeding tube DAILY 01/02/22 06/09/22 release bisoprolol fumarate 10 mg tablet 5 mg feeding tube DAILY 01/06/22 06/09/22 docusate sodium 50 mg/5 mL oral 50 mg feeding tube PRN PRN 01/06/22 06/09/22 liquid prochlorperazine maleate 10 mg 10 mg feeding tube HS 01/06/22 06/09/22 tablet sennosides 8.8 mg/5 mL oral syrup 8.8 mg feeding tube PRN PRN 01/06/22 06/09/22 (senna) naloxone 4 mg/actuation nasal 1 spray intranasal Q2-3M PRN #1 ea 01/09/22 06/09/22 spray (Narcan) diphenhydramine 25 30 ml HS 01/13/22 06/09/22 mg-acetaminophen 500 mg/15 mL oral solution fluoxetine 20 mg/5 mL (4 mg/mL) 40 mg UD DAILY 01/13/22 06/09/22 oral solution methocarbamol 500 mg tablet 500 mg PO Q6H PRN muscle spasm #14 05/25/22 06/09/22 tabs metformin 500 mg tablet,extended 1,000 mg PO BID 06/03/22 06/09/22 release 24 hr olanzapine 5 mg tablet 5 mg PO QHS 06/03/22 06/09/22 oxycodone 5 mg tablet 5 mg PO Q8H PRN pain #15 tabs 06/09/22 Previous Rx's Medication Instructions Recorded naloxone 4 mg/actuation nasal 1 spray intranasal Q2-3M PRN #1 ea 01/09/22 spray (Narcan) methocarbamol 500 mg tablet 500 mg PO Q6H PRN muscle spasm #14 05/25/22 tabs oxycodone 5 mg tablet 5 mg PO Q8H PRN pain #15 tabs 06/09/22 Allergies Allergy/AdvReac Type Severity Reaction Status Date / Time ceftriaxone Allergy Severe ANAPHYLAXIS Verified 06/09/22 09:35 Cephalosporins Allergy Severe Anaphylaxsi Verified 06/09/22 09:35 s ciprofloxacin AdvReac Dizziness/L Verified 06/09/22 09:35 ightheade fentanyl AdvReac Agitation, Unverified 06/09/22 09:35 confusion meperidine HCl [From Demerol] AdvReac vomiting Verified 06/09/22 09:35 morphine AdvReac vomiting Verified 06/09/22 09:35 General Stated Complaint: Abd Prob CASIMIRO: 3 Review of Systems Constitutional Constitutional: Reports as per HPI, Denies chills, Denies fatigue, Denies fever(s) and Denies headache(s) ENT Ears, Nose, Mouth, and Throat: Denies headache(s) Cardiovascular Cardiovascular: Reports as per HPI, Denies chest pain and Denies dyspnea Respiratory Respiratory: Reports as per HPI, Denies cough and Denies dyspnea Gastrointestinal Gastrointestinal: Reports as per HPI Genitourinary Genitourinary: Denies system reviewed and no additional complaints, except as documented (patient denies any change in urinary habits) Musculoskeletal Musculoskeletal: Reports as per HPI and Denies back pain Integumentary/Breasts Skin/Breast: Reports as per HPI and Denies rash Neurologic Neurologic: Reports as per HPI and Denies headache(s) Endocrine Endocrine: Denies fatigue PFSH All Active Problems (Updated 06/09/22 @ 21:34 by MEGAN Santiago) Right inguinal hernia (Acute) Hypoglycemia (Acute) Hypomagnesemia (Acute) Right hip pain (Acute) Dysphagia (Chronic) 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 (Acute) Squamous cell carcinoma of tonsil (Acute) Cervical lymphadenopathy (Acute) Tonsillar mass (Acute) Sleep apnea (Acute) Unintentional weight loss (Acute) Swallowing problem (Acute) Abnormal laboratory test (Acute) Screening for colon cancer (Acute) Chest pain (Acute) Asthma (Chronic) Medical History (Updated 06/09/22 @ 21:34 by MEGAN Santiago) Arthralgia Back pain, acute Bradycardia Chondromalacia patellae of left knee Chronic low back pain Colon polyps Dehydration Depression Diabetic peripheral neuropathy Diverticulosis DJD of right AC (acromioclavicular) joint Essential tremor (11/21/14) Fatigue GERD (gastroesophageal reflux disease) Headache Cervical Hip pain, left History of tobacco use HTN (hypertension) Hyperlipemia Hypomagnesemia Hypotension Hypothyroidism 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) Insect bite Internal derangement of left knee Lumbosacral neuritis Neck pain on left side Obesity Osteoarthritis of left knee Primary osteoarthritis of right hip Prolonged depression Psoriasis Radicular syndrome of lower limbs Resting tremor Right groin pain Right rotator cuff tear Injection under fluoroscopy: 11/04/18 Status post rotator cuff repair DOS: 01/25/2019 Septic arthritis of knee Septic joint Shoulder pain, left Shoulder pain, right Trigeminy URI, acute Vertigo Vitamin B12 deficiency Surgical History 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 Trochanteric bursitis, left hip S/P debridement with IT band lengthenin08/12/2021 Family History Father Heart disease Brother Tremor Son Seizure Mother Osteoarthritis Social History Smoking/Tobacco Use Status: Former Tobacco Use Quit Date: 09/07/79 Pack-years: 1 Smoking risk assessment performed?: Yes Alcohol Intake: current Alcohol Intake frequency: holidays/special occasions only Drug use: Never Substance use type: does not use Household members: children Housing: house Number of Children: 2 current occupation: Retired Current gender identity: male What type of physical activity do you participate in: independent ambulation Do you feel safe at home: Yes Do you feel safe in your relationship?: Yes Exam Const General: cooperative, healthy appearing, uncomfortable, no acute distress and well developed Nutritional Appearance: average body habitus and well nourished Orientation: alert and awake [facility] Head: normal to inspection Mouth: moist mucous membranes Resp Effort & Inspection: normal respiratory effort, able to speak in complete sentences and no respiratory distress Auscultation: clear to auscultation bilaterally, no rales, no rhonchi and no wheezes Cardio Rate: regular rate Rhythm: regular rhythm Heart Sounds: S1 normal and S2 normal GI Inspection: normal to inspection Palpation: no hepatosplenomegaly, not firm, guarding (inguinal hernia), not rigid and tender other (right inguinal hernia) Abdomen image: 1. Umbilical hernia, no pain with palpation. Unable to reduce. Normal bowel sounds. No erythma or warmth. 2. Area of sigfnciant pain, firm palpable hernia, no erythema, warmth, swelling. Back/Spine/Pelvis Back: no CVA tenderness Skin General skin exam: no rashes or lesions noted Trauma: no lacerations or abrasions Neuro General: patient alert and patient awake Cognition: normal cognition Speech: speech normal Gait: normal gait Psych Appearance: grossly normal and well kempt Mental Status: mental status grossly normal Speech and Movement: speech and movement normal Course Vital Signs Vital signs: Vital Signs Temperature 36.4 C L 06/09/22 09:31 Pulse 52 L 06/09/22 09:31 Respiratory Rate 18 06/09/22 09:31 Blood Pressure 128/62 06/09/22 09:31 Pulse Oximetry 98 06/09/22 09:31 Temperature 36.4 C L 06/09/22 09:31 Temperature Source Temporal Artery Scan 06/09/22 09:31 Pulse 52 L 06/09/22 09:31 Respiratory Rate 18 06/09/22 09:31 Respiratory Effort Non-Labored 06/09/22 09:36 Blood Pressure 128/62 06/09/22 09:31 Pulse Oximetry 98 06/09/22 09:31 Oxygen Delivery Method Room Air 06/09/22 09:31 Oxygen Flow Rate 0 06/09/22 09:31
--- NOTE | 2022-06-09 10:30 | DI.CT_ITS ---
Exam(s) CT ABDOMEN PELVIS W EXAM: CT ABDOMEN PELVIS W CLINICAL HISTORY: right inguinal hernia, increased pain/firm. TECHNIQUE: Imaging Protocol: Axial computed tomography images with coronal and sagittal reformatted images were created and reviewed CONTRAST MATERIAL: Intravenous: Omnipaque 350 Contrast volume:100 ml Oral: no COMPARISON: CT ABD PELVIS WITH CONTRAST from 03/05/[address] THORAX CTA from 09/03/2020 FINDINGS: ABDOMEN: Lung Bases: Mild dependent changes.. The heart is mildly dilated. The mitral valve is heavily calci fied. Coronary artery calcifications are also present. Liver: Normal density. No measurable mass. Gallbladder and biliary tract: Status post cholecystectomy. No radiodense calculus or dilation. Pancreas: Normal density, no abnormal calcifications or inflammatory process. Spleen: Normal. Kidneys: Normal size, contour and axis. No radiodense stones or obstructive uropathy. No masses seen. Cyst lower pole left kidney. Adrenal glands: No masses seen. Abdominal Aorta: Abdominal portion non-dilated. Atherosclerotic changes. Soft tissues: Fatty containing hernia above the umbilicus, not significantly changed from 2009. PELVIS: Bladder: No gross wall thickening. No calculi.No focal mass. Bowel: Moderate quantity of stool. There is contrast within the descending colon through rectum pres umably related to prior barium swallow. Diverticulosis is noted of the descending colon. No obstruc tion or bowel wall thickening. Appendix normal. Peritoneal cavity: No ascites, collection or mesenteric inflammatory response. Bones: Degenerative changes in the spine and right hip. Left hip prosthesis. Reproductive organs: Within normal limits. Lymph nodes: Unremarkable. Soft tissues: Small amount of fat in each inguinal canal, right greater than left. No findings to varela ggest incarceration. Similar appearance to 2009. Impression: Stable appearance of fatty containing hernia above the umbilicus. Stable small bilateral inguinal he rnias, right greater than left. Results of this exam have been verbally communicated with the emergency department provider. RADIATION DOSE DELIVERED: 1,106.17mGy.cm Total DLP DATA REPOSITORY: All CT scans at this facility are submitted to the National Radiology Data Registry (NRDR) Dose Index Registry (DIR) with the [employer] ([employer]). RADIATION OPTIMIZATION: All CT scans at this facility use at least one of these dose optimization te chniques: automated exposure control; mA and/or kV adjustment per patient size (includes targeted exa ms where dose is matched to clinical indication); or iterative reconstruction.
[2022-06-09 10:57] LABS: Source Nasal/Nares
[2022-06-09 11:00] LABS: Abs Immature Grans 0.03 10^3/uL (0.0-0.06); Absolute Basophil Count 0.01 10^3/uL (0.0-0.2); Absolute Eosinophil Count 0.04 10^3/uL (0.0-0.7); Absolute Lymphocyte Count 0.33 10^3/uL (1.2-3.4); Absolute Monocyte Count 0.25 10^3/uL (0.1-0.8); Absolute Neutrophil Count 4.95 10^3/uL (1.2-6.7); Basophils % 0.2; Eosinophils % 0.7; HCT 41.2 % (40.0-50.0); HGB 13.4 g/dL (13.5-17.5); Immature Grans % 0.5; Lymphocytes % 5.9; MCH 30.9 pg (27.0-33.0); MCHC 32.5 % (32.0-36.0); MCV 95 fL (80-95); MPV 9.9 fL (8.0-11.0); Monocytes % 4.5; Neutrophils % 88.2; Platelet Count 282 10^3/uL (130-400); RBC 4.34 10^6/uL (4.36-5.78); RDW 13.3 % (11.8-14.1); RDW-SD 47.5 fL; WBC 5.61 10^3/uL (4.4-10.8)
[2022-06-09 11:03] LABS: Lactate 2.3 mmol/L (0.6-1.4)
[2022-06-09 11:13] LABS: Bilirubin Negative (Negative); Blood Negative (Negative); Clarity Clear (Clear); Glucose Negative (Negative); Ketones Negative (Negative); Leukocyte Esterase Negative (Negative); Nitrite Negative (Negative); Urobilinogen 0.2 EU/dL (Up TO 0.2); pH 5.5 (5-8)
[2022-06-09 11:17] LABS: ALT 14 U/L (16-63); AST 12 U/L (15-37); Albumin 3.5 g/dL (3.4-5.0); Alkaline Phosphatase 53 U/L (46-116); Anion Gap 7.9 mmol/L (3-11); BUN 23 mg/dL (7-18); Bilirubin, Total 0.3 mg/dL (0.2-1.0); CO2 28.1 mmol/L (21.0-32.0); Calcium 9.1 mg/dL (8.5-10.1); Chloride 103 mmol/L (98-107); Estimated GFR 79.47 (mL/min/1.73m2); Glucose 169 mg/dL (74-106); Magnesium 1.5 mg/dL (1.8-2.4); Potassium 3.9 mmol/L (3.5-5.1); Sodium 139 mmol/L (136-145)
[2022-06-09 11:30] LABS: COVID-19 PCR Negative (Negative)
[2022-06-09] MEDS: Normal Saline 1,000 ML 125 ML IV (12:03)
[2022-06-09] MEDS: ACETAMINOPHEN 1,000 MG/100 ML BTL 400 MG IVPB (12:04)
--- NOTE | 2022-06-09 13:43 | HPE_ITS ---
Date of service: 06/09/22 Time of Service: 13:44 Assessment and Plan Assessment and plan (1) Right inguinal hernia: Status: Acute Assessment and plan: He has an incarcerated right-sided inguinal hernia. We talked about surgical repair of hernias, and I recommended open herniorrhaphy with mesh. I explained the risks including infection, hernia recurrence, and complications related to dissection. He seems to have a good understanding of this, he provided informed consent. We will make arrangements for emergency surgery this afternoon. History of Present Illness History of Present Illness Chief Complaint: Right groin pain Narrative: Chelsey is a 72-year-old male who comes into the emergency department with increasing right-sided groin pain. He says it for started last week after doing some physical activity. He noticed a lump in his groin. He was seen in the em ergency department at that time, and he underwent an ultrasound that demonstrated a right-sided inguinal hernia. It sounds like the original plan was to have him follow-up as an outpatient, but his pain got worse through the weekend and this morning. Today, he describes excruciating pain on the right side of his lower abdomen near the groin that was worse with ambulation. He has had some mild relief lying supine. He denies any nausea or vomiting. Review of Systems Constitutional Constitutional: Denies anorexia, Denies fever(s), Denies poor appetite, Denies weakness and Denies weight loss Eyes Eyes: Reports system reviewed and no additional complaints, except as documented ENT Ears, Nose, Mouth, and Throat: Denies dizziness and Reports hoarseness (Chronic since treatment for throat cancer) Cardiovascular Cardiovascular: Denies chest pain and Denies dyspnea Respiratory Respiratory: Denies chest congestion, Denies cough and Denies dyspnea Gastrointestinal Gastrointestinal: Denies bloating, Denies nausea and Denies vomiting Genitourinary Genitourinary: Denies oliguria and Denies dysuria Musculoskeletal Musculoskeletal: Reports abnormal gait (Secondary to groin pain), Denies arthralgias and Reports radiating pain into limb (Right lower extremity) Neurologic Neurologic: Reports abnormal gait (Secondary to groin pain), Denies dizziness and Denies weakness Hematologic/Lymphatic Hematologic/Lymphatic: Denies easy bleeding and Denies easy bruising PFSH All Active Problems (Updated 06/09/22 @ 13:52 by Arnie Mckeon MD) Right inguinal hernia (Acute) Hypoglycemia (Acute) Hypomagnesemia (Acute) Right hip pain (Acute) Dysphagia (Chronic) 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 (Acute) Squamous cell carcinoma of tonsil (Acute) Cervical lymphadenopathy (Acute) Tonsillar mass (Acute) Sleep apnea (Acute) Unintentional weight loss (Acute) Swallowing problem (Acute) Abnormal laboratory test (Acute) Screening for colon cancer (Acute) Chest pain (Acute) Asthma (Chronic) Medical History (Updated 06/09/22 @ 13:52 by Arnie Mckeon MD) Arthralgia Back pain, acute Bradycardia Chondromalacia patellae of left knee Chronic low back pain Colon polyps Dehydration Depression Diabetic peripheral neuropathy Diverticulosis DJD of right AC (acromioclavicular) joint Essential tremor (11/21/14) Fatigue GERD (gastroesophageal reflux disease) Headache Cervical Hip pain, left History of tobacco use HTN (hypertension) Hyperlipemia Hypomagnesemia Hypotension Hypothyroidism 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) Insect bite Internal derangement of left knee Lumbosacral neuritis Neck pain on left side Obesity Osteoarthritis of left knee Primary osteoarthritis of right hip Prolonged depression Psoriasis Radicular syndrome of lower limbs Resting tremor Right groin pain Right rotator cuff tear Injection under fluoroscopy: 11/04/18 Status post rotator cuff repair DOS: 01/25/2019 Septic arthritis of knee Septic joint Shoulder pain, left Shoulder pain, right Trigeminy URI, acute Vertigo Vitamin B12 deficiency Surgical History 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 Trochanteric bursitis, left hip S/P debridement with IT band lengthenin08/12/2021 Family History Father Heart disease Brother Tremor Son Seizure Mother Osteoarthritis Social History Smoking/Tobacco Use Status: Former Tobacco Use Quit Date: 09/07/79 Pack-years: 1 Smoking risk assessment performed?: Yes Alcohol Intake: current Alcohol Intake frequency: holidays/special occasions only Drug use: Never Substance use type: does not use Household members: children Housing: house Number of Children: 2 current occupation: Retired Current gender identity: male What type of physical activity do you participate in: independent ambulation Do you feel safe at home: Yes Do you feel safe in your relationship?: Yes Meds Allergies and Home Medications Allergies Allergy/AdvReac Type Severity Reaction Status Date / Time ceftriaxone Allergy Severe ANAPHYLAXIS Verified 06/09/22 09:35 Cephalosporins Allergy Severe Anaphylaxsi Verified 06/09/22 09:35 s ciprofloxacin AdvReac Dizziness/L Verified 06/09/22 09:35 ightheade fentanyl AdvReac Agitation, Unverified 06/09/22 09:35 confusion meperidine HCl [From Demerol] AdvReac vomiting Verified 06/09/22 09:35 morphine AdvReac vomiting Verified 06/09/22 09:35 Home Medications Medication Instructions Recorded Confirmed Type albuterol sulfate 90 mcg/actuation 2 puff inhalation Q4H 10/16/14 06/09/22 History aerosol inhaler amoxicillin 500 mg tablet 2,000 mg feeding tube .PROIR TO 01/04/19 06/09/22 History DENTAL meclizine 25 mg tablet 25 mg feeding tube Q6H PRN 06/28/20 06/09/22 History levothyroxine 125 mcg capsule 62.5 mcg PO DAILY 09/10/21 06/09/22 History omeprazole 40 mg capsule,delayed 40 mg feeding tube QPM 09/10/21 06/09/22 History release aspirin 81 mg tablet,delayed 81 mg feeding tube DAILY 01/02/22 06/09/22 History release bisoprolol fumarate 10 mg tablet 5 mg feeding tube DAILY 01/06/22 06/09/22 History docusate sodium 50 mg/5 mL oral 50 mg feeding tube PRN PRN 01/06/22 06/09/22 History liquid prochlorperazine maleate 10 mg 10 mg feeding tube HS 01/06/22 06/09/22 History tablet sennosides 8.8 mg/5 mL oral syrup 8.8 mg feeding tube PRN PRN 01/06/22 06/09/22 History (senna) naloxone 4 mg/actuation nasal 1 spray intranasal Q2-3M PRN #1 ea 01/09/22 06/09/22 Rx spray (Narcan) diphenhydramine 25 30 ml HS 01/13/22 06/09/22 History mg-acetaminophen 500 mg/15 mL oral solution fluoxetine 20 mg/5 mL (4 mg/mL) 40 mg UD DAILY 01/13/22 06/09/22 History oral solution methocarbamol 500 mg tablet 500 mg PO Q6H PRN muscle spasm #14 05/25/22 06/09/22 Rx tabs metformin 500 mg tablet,extended 1,000 mg PO BID 06/03/22 06/09/22 History release 24 hr olanzapine 5 mg tablet 5 mg PO QHS 06/03/22 06/09/22 History Exam Const General: cooperative, healthy appearing and comfortable Orientation: awake and oriented x3 [facility] Face images: 1. fullness Eyes General: appearance normal, both eyes and all related structures Conjunctivae: conjunctivae normal Sclera: sclerae normal Resp Effort & Inspection: normal respiratory effort and able to speak in complete sentences Auscultation: clear to auscultation bilaterally Cardio Jugular venous pressure: no JVD Rate: regular rate Rhythm: regular rhythm Heart Sounds: S1 normal and S2 normal GI Inspection: non-distended Palpation: soft, no guarding, hernia (Tender right-sided inguinal hernia, no overlying skin change) and nontender Auscultation: normal bowel sounds Other: Incidentally, he has a reducible umbilical hernia as well Skin General skin exam: normal turgor Neuro General: patient alert, patient awake and patient oriented x3 Cognition: normal cognition Extrem Right lower extremity: no edema Left lower extremity: no edema Results Labs Result diagrams: 06/09/22 10:50 06/09/22 10:50 Labs: Laboratory Results - last 24 hr 06/09/22 06/09/22 06/09/22 10:49 10:50 10:50 WBC RBC Hgb Hct MCV MCH MCHC RDW Plt Count MPV Immature Gran % Neutrophils % Lymphocytes % Monocytes % Eosinophils % Basophils % Nucleated RBC % Absolute Neutrophils Absolute Lymphocytes Absolute Monocytes Absolute Eosinophils Absolute Basophils VBG Lactate 2.3 H* Sodium 139 Potassium 3.9 Chloride 103 Carbon Dioxide 28.1 Anion Gap 7.9 BUN 23 H Creatinine 1.0 Est GFR (CKD-EPI 2020) 79.47 Glucose 169 H Calcium 9.1 Magnesium 1.5 L Total Bilirubin 0.3 AST 12 L ALT 14 L Alkaline Phosphatase 53 Total Protein 7.0 Albumin 3.5 Urine Color Urine Clarity Urine pH Ur Specific [place] Urine Protein Urine Ketones Urine Blood Urine Nitrite Urine Bilirubin Urine Urobilinogen Ur Leukocyte Esterase Urine Glucose COVID-19 Source Nasal/Nares SARS-CoV-2 (PCR) Negative 06/09/22 06/09/22 10:50 11:05 WBC 5.61 RBC 4.34 L Hgb 13.4 L Hct 41.2 MCV 95 MCH 30.9 MCHC 32.5 RDW 13.3 Plt Count 282 MPV 9.9 Immature Gran % 0.5 Neutrophils % 88.2 Lymphocytes % 5.9 Monocytes % 4.5 Eosinophils % 0.7 Basophils % 0.2 Nucleated RBC % 0.0 Absolute Neutrophils 4.95 Absolute Lymphocytes 0.33 L Absolute Monocytes 0.25 Absolute Eosinophils 0.04 Absolute Basophils 0.01 VBG Lactate Sodium Potassium Chloride Carbon Dioxide Anion Gap BUN Creatinine Est GFR (CKD-EPI 2020) Glucose Calcium Magnesium Total Bilirubin AST ALT Alkaline Phosphatase Total Protein Albumin Urine Color Straw Urine Clarity Clear Urine pH 5.5 Ur Specific [place] 1.010 Urine Protein Negative Urine Ketones Negative Urine Blood Negative Urine Nitrite Negative Urine Bilirubin Negative Urine Urobilinogen 0.2 Ur Leukocyte Esterase Negative Urine Glucose Negative COVID-19 Source SARS-CoV-2 (PCR) Last Vital Signs Temp 97.5 F L 06/09/22 09:31 Pulse 82 06/09/22 12:33 Resp 18 06/09/22 12:33 BP 132/68 06/09/22 12:33 Pulse Ox 95 06/09/22 12:33
[2022-06-09] MEDS: Lactated Ringers 1,000 ML 30 ML IV (14:00)
--- NOTE | 2022-06-09 14:27 | W.ANESPRE ---
General Info Date of Service Date Performed: 06/09/22 Height: 5 ft 10.5 in Weight: 92.533 kg Body Mass Index (BMI): 28.8 Surgical Procedure: Operation Date: 06/09/22 14:40 Proposed Procedure Side Surgeon p Herniorrhaphy Incarcerated Inguinal w/Mesh Right Arnie Mckeon MD Actual Procedure Side Surgeon p Herniorrhaphy Incarcerated Inguinal w/Mesh Right Dora Diehl MD Meds Allergies and Home Medications Allergies Allergy/AdvReac Type Severity Reaction Status Date / Time ceftriaxone Allergy Severe ANAPHYLAXIS Verified 06/09/22 09:35 Cephalosporins Allergy Severe Anaphylaxsi Verified 06/09/22 09:35 s ciprofloxacin AdvReac Dizziness/L Verified 06/09/22 09:35 ightheade fentanyl AdvReac Agitation, Unverified 06/09/22 09:35 confusion meperidine HCl [From Demerol] AdvReac vomiting Verified 06/09/22 09:35 morphine AdvReac vomiting Verified 06/09/22 09:35 Home Medication Medication Instructions Recorded albuterol sulfate 90 mcg/actuation 2 puff inhalation Q4H 10/16/14 aerosol inhaler amoxicillin 500 mg tablet 2,000 mg feeding tube .PROIR TO 01/04/19 DENTAL meclizine 25 mg tablet 25 mg feeding tube Q6H PRN 06/28/20 levothyroxine 125 mcg capsule 62.5 mcg PO DAILY 09/10/21 omeprazole 40 mg capsule,delayed 40 mg feeding tube QPM 09/10/21 release aspirin 81 mg tablet,delayed 81 mg feeding tube DAILY 01/02/22 release bisoprolol fumarate 10 mg tablet 5 mg feeding tube DAILY 01/06/22 docusate sodium 50 mg/5 mL oral 50 mg feeding tube PRN PRN 01/06/22 liquid prochlorperazine maleate 10 mg 10 mg feeding tube HS 01/06/22 tablet sennosides 8.8 mg/5 mL oral syrup 8.8 mg feeding tube PRN PRN 01/06/22 (senna) naloxone 4 mg/actuation nasal 1 spray intranasal Q2-3M PRN #1 ea 01/09/22 spray (Narcan) diphenhydramine 25 30 ml HS 01/13/22 mg-acetaminophen 500 mg/15 mL oral solution fluoxetine 20 mg/5 mL (4 mg/mL) 40 mg UD DAILY 01/13/22 oral solution methocarbamol 500 mg tablet 500 mg PO Q6H PRN muscle spasm #14 05/25/22 tabs metformin 500 mg tablet,extended 1,000 mg PO BID 06/03/22 release 24 hr olanzapine 5 mg tablet 5 mg PO QHS 06/03/22 Current Visit Medications: Current Medications Generic Name Dose Route Start Last Admin Trade Name Freq PRN Reason Stop Dose Admin Celecoxib 200 mg 06/09/22 13:40 Celecoxib 200 Mg Cap PO PREOP BRANDON Gabapentin 600 mg 06/09/22 13:40 Gabapentin 300 Mg Cap PO PREOP BRANDON Sodium Chloride 1,000 mls @ 125 mls/hr 06/09/22 10:23 06/09/22 12:03 Saline 1000ml Bag IV 06/09/22 18:22 125 mls/hr BOLUS ONE Administration Sodium Chloride 500 mls @ 0 mls/hr 06/09/22 12:24 Saline 500ml Bag IV PRN PRN As Directed Vancomycin/PEG/NADA/Lysine/Water 2 gm in 400 mls @ 200 mls/hr 06/09/22 14:00 Vancocin Injection IVPB 06/09/22 20:00 PREOP [facility] Protocol IV Miscellaneous Supplies 1 each 06/09/22 12:30 Iv Access IV DIRECTED [facility] Sodium Chloride 0 ml 06/09/22 12:24 Normal Saline Flush 10 Ml Syr IVP PRN PRN PFSH Active Problems Active Problems: Problem Status Onset Code Right inguinal hernia K40.90 Hypoglycemia E16.2 Hypomagnesemia E83.42 Right hip pain M25.551 Dysphagia R13.10 IDDM (insulin dependent diabetes mellitus) 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 Cervical lymphadenopathy R59.0 Tonsillar mass J35.8 Sleep apnea G47.30 Unintentional weight loss R63.4 Swallowing problem R13.10 Abnormal laboratory test R89.9 Screening for colon cancer Z12.11 Chest pain R07.9 Asthma J45.909 Medical History Medical History (Updated 06/09/22 @ 13:52 by Arnie Mckeon MD) Arthralgia Back pain, acute Bradycardia Chondromalacia patellae of left knee Chronic low back pain Colon polyps Dehydration Depression Diabetic peripheral neuropathy Diverticulosis DJD of right AC (acromioclavicular) joint Essential tremor (11/21/14) Fatigue GERD (gastroesophageal reflux disease) Headache Cervical Hip pain, left History of tobacco use HTN (hypertension) Hyperlipemia Hypomagnesemia Hypotension Hypothyroidism 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) Insect bite Internal derangement of left knee Lumbosacral neuritis Neck pain on left side Obesity Osteoarthritis of left knee Primary osteoarthritis of right hip Prolonged depression Psoriasis Radicular syndrome of lower limbs Resting tremor Right groin pain Right rotator cuff tear Injection under fluoroscopy: 11/04/18 Status post rotator cuff repair DOS: 01/25/2019 Septic arthritis of knee Septic joint Shoulder pain, left Shoulder pain, right Trigeminy URI, acute Vertigo Vitamin B12 deficiency Surgical History Surgical History 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 Trochanteric bursitis, left hip S/P debridement with IT band lengthenin08/12/2021 Tobacco Smoking/Tobacco Use Status: Former Tobacco Use Alcohol Alcohol Intake: current Alcohol intake frequency: holidays/special occasions only Substance Use Substance use: Never Substance use type: does not use Vital Signs and Lab Results Vital Signs Most Recent Vital Signs in EMR: Most Recent Vital Signs Temp Pulse Resp BP Pulse Ox 36 C L 51 L 16 108/76 98 06/09/22 14:17 06/09/22 14:17 06/09/22 14:17 06/09/22 14:17 06/09/22 14:17 Lab Results Result Diagrams: 06/09/22 10:50 06/09/22 10:50 Blood Type / Crossmatch: No Data to Display Complete Blood Count: White Blood Count 5.61 10^3/uL (4.4-10.8) 06/09/22 10:50 Red Blood Count 4.34 10^6/uL (4.36-5.78) L 06/09/22 10:50 Hemoglobin 13.4 g/dL (13.5-17.5) L 06/09/22 10:50 Hematocrit 41.2 % (40.0-50.0) 06/09/22 10:50 Platelet Count 282 10^3/uL (130-400) 06/09/22 10:50 Venous Blood Lactate 2.3 mmol/L (0.6-1.4) H* 06/09/22 10:50 Complete Metabolic Panel: Sodium Level 139 mmol/L (136-145) 06/09/22 10:50 Potassium Level 3.9 mmol/L (3.5-5.1) 06/09/22 10:50 Chloride Level 103 mmol/L (98-107) 06/09/22 10:50 Carbon Dioxide Level 28.1 mmol/L (21.0-32.0) 06/09/22 10:50 Blood Urea Nitrogen 23 mg/dL (7-18) H 06/09/22 10:50 Creatinine 1.0 mg/dL (0.70-1.30) 06/09/22 10:50 Magnesium Level 1.5 mg/dL (1.8-2.4) L 06/09/22 10:50 Calcium Level 9.1 mg/dL (8.5-10.1) 06/09/22 10:50 Albumin 3.5 g/dL (3.4-5.0) 06/09/22 10:50 Glucose Level 169 mg/dL (74-106) H 06/09/22 10:50 Liver Function Panel: Alanine Aminotransferase (ALT/SGPT) 14 U/L (16-63) L 06/09/22 10:50 Aspartate Amino Transf (AST/SGOT) 12 U/L (15-37) L 06/09/22 10:50 Coagulation Panel: No Data to Display Cardiac Panel: No Data to Display Arterial Blood Gas: No Data to Display Venous Blood Gas: No Data to Display Pancreas Panel: No Data to Display Thyroid Panel: No Data to Display Infectious Disease: Coronavirus (COVID-19)(PCR) Negative (Negative) 06/09/22 10:49 Coronavirus 2019 Source Nasal/Nares 06/09/22 10:49 Blood Cultures: No Data to Display Toxicology Panel: No Data to Display Imaging and Studies Imaging and Studies Study information below may be from another EMR and interpreted by another provider. Please see original notes in EMR for more complete details. EKG Summary: 08/26: sinus rhythm, prob LAE. Stress Test Summary: 08/26: max HR 46% for predicted age. non-diagnostic. LVEF 50%. Echocardiogram Summary: 08/26: LVEF 60%, trace/mild TR. mild MR. 12/23: no prefusion defects noted. LVEF 43%. Anesthesia Assessment and Plan Anesthesia History Personal History: No History of Anesthesia Complications Family History: No Family History of Anesthesia Complications Exercise Tolerance Exercise Tolerance: Metabolic Equivalents>4 Pertinent Negatives Pertinent Negatives: No Symptoms of GERD, No Major Cardiovascular Symptoms or Complaints and No Major Pulmonary Symptoms or Complaints (Asthma hx no inhsler use in over a year, ?BRANDI?) Cardiac & Pulmonary Exam Cardiac Exam: Normal S1/S2 Heart Sounds Pulmonary Exam: Clear Bilateral Breath Sounds Implantable Cardiac Device Does patient have a Pacemaker or an ICD?: No Airway Exam Known Difficult Airway: No Mallampati Class: 4 Mouth Opening: Normal (> 3cm) Thyromental Distance: Greater than 3 cm Neck Range of Motion: Full ROM Neck Circumference: Thick Teeth Condition: Generalized Poor Dentition Airway Comments: #12 broken #11 chipped ASA Classification ASA Score: ASA 3 Emergency Case?: No NPO Status NPO Status: NPO Clears >2 hours, Solids >8 hours Anesthesia Plan Resuscitation Status: Full Code Anesthesia Technique: General Anesthesia Airway Planned: Endotracheal Tube Monitors Used: Standard Monitors
[2022-06-09] MEDS: VANCOMYCIN/WATER (PEG) 2 GM/400 ML BAG IVPB (14:37)
[2022-06-09] MEDS: Celecoxib 200 MG CAP PO (14:40)
[2022-06-09] MEDS: Gabapentin 300 MG CAP 600 MG PO (14:40)
[2022-06-09] MEDS: Bupivacaine 0.25% Pres-Free 30 ML VIAL (15:45)
--- NOTE | 2022-06-09 17:06 | PDOC.DSDIS_ITS ---
Discharge Plan Disposition Patient Disposition: HOME Condition: Good Discharge Details Reason For Visit: Incarcerated right inguinal hernia Attending Provider: Arnie Mckeon Primary Care Provider: Beatriz Cotton V Hospital Course Hospital Course: When he presented to the emergency department with exacerbation of recent right- sided groin pain. He had physical exam findings consistent with an incarcerated inguinal hernia. Incidentally, he had an incarcerated umbilical hernia as well. He was brought to the operating room and underwent open right-sided inguinal herniorrhaphy with mesh, as well as a umbilical herniorrhaphy with mesh Home Meds and New Rx's Prescriptions: New oxycodone 5 mg tablet 5 mg PO Q8H MDD 3 tabs PRN (Reason: pain) Qty: 15 0RF Rx Instructions: Take one tablet by mouth every 8 hours as needed for severe pain Continued olanzapine 5 mg tablet 5 mg PO QHS amoxicillin 500 mg tablet 2,000 mg feeding tube .PROIR TO DENTAL meclizine 25 mg Tablet 25 mg feeding tube Q6H PRN albuterol sulfate 8.5 GM HFA aerosol inhaler 2 puff Inhalation Q4H levothyroxine 125 mcg capsule 62.5 mcg PO DAILY omeprazole 40 mg capsule,delayed release(DR/EC) 40 mg feeding tube QPM metformin 500 mg tablet extended release 24 hr 1,000 mg PO BID bisoprolol fumarate 10 MG tablet 5 mg feeding tube DAILY docusate sodium 50 mg/5 mL Liquid 50 mg feeding tube PRN PRN sennosides [senna] 8.8 mg/5 mL Syrup 8.8 mg feeding tube PRN PRN prochlorperazine maleate 10 mg Tablet 10 mg feeding tube HS naloxone [Narcan] 4 mg/actuation spray,non-aerosol 1 spray intranasal Q2-3M PRNQty: 1 0RF Rx Instructions: spray 1 dose into ONE nostril; alternate nostrils w each dose until help arrives aspirin 81 mg tablet,delayed release (DR/EC) 81 mg feeding tube DAILY fluoxetine 20 mg/5 mL (4 mg/mL) solution 40 mg UD DAILY diphenhydramine-acetaminophen 25-500 mg-mg/mL Solution 30 ml HS methocarbamol 500 mg tablet 500 mg PO Q6H PRN (Reason: muscle spasm) Qty: 14 0RF Discharge Instructions Instructions: Open Herniorrhaphy (DC), Inguinal Hernia (GEN) Additional Instructions: 1. Resume all of your medications. 2. Okay to use tylenol and ibuprofen over the counter as needed. 3. Use oxycodone as needed for severe pain. 4. Leave bandages in place for 24 hours, then remove. 5. Shower with warm soapy water. Pat dry. Use bandaids if needed to protect your clothing. 6. No soaking or tub baths until I see you in the office. 7. No heavy lifting until I see you in the office. 8.Call the office (or go directly to the emergency room after hours) if you notice any of the following: Develop chills (warm to touch), or if you have a thermometer and your temperature is above 101 Difficulty breathing or difficultly swallowing Persistent vomiting Any bleeding ? exceeding one tablespoon 6. Call your physician if the site where your intravenous was started becomes red, swollen, painful, and warm to touch. Referrals: Arnie Mckeon MD [ [facility] STAFF PHYSICIAN] - Activity:: No heavy lifting Remove Dressings/Wound Care:: 24 hours Shower/Bathe:: 24 hours Activity:: Activity as Tolerated Equipment/Supplies:: No Equipment Needed Diet:: As Tolerated Discharge Orders Discharge Orders: Discharge Order (Routine); Ordered 06/09/22 Ordered By: Arnie Mckeon DS: Diagnosis Discharge Diagnosis (1) Right inguinal hernia: Status: Acute Asessment and Plan: s/p right inguinal herniorraphy with mesh and umbilical herniorraphy with mesh
--- NOTE | 2022-06-09 17:35 | W.ANESPOSTOP ---
Postoperative Evaluation Date, Time and Location Date Performed: 06/09/22 Time Performed: 17:35 Patient Location: PACU Vital Signs Most Recent Imported Vital Signs: Most Recent Vital Signs Temp Pulse Resp BP Pulse Ox 36.6 C 49 L 14 157/74 H 96 06/09/22 17:15 06/09/22 17:15 06/09/22 17:15 06/09/22 17:15 06/09/22 17:15 Pain Score Most Recent Pain Score: Most Recent Pain Score Pain Level 06/09/22 17:15 Assessment Mental Status: Awake (Alert & Oriented to Patient Baseline) Airway and Respiratory Function: Patent airway with normal (patient baseline) respiratory exam Cardiovascular Function: Hemodynamically Stable Hydration Status: Adequately Hydrated Nausea & Vomiting: No Nausea or Vomiting Pain: Pain is tolerable per patient Peripheral Nerve Block: Patient did not receive a nerve block
[2022-06-09] MEDS: Normal Saline Flush 10 ML SYR IVP (18:20)
--- NOTE | 2022-06-09 21:00 | W.PM.OP ---
Date of service: 06/09/22 Time of Service: 17:20 Operative Note Operative Note DATE OF PROCEDURE: 06/09/22 PRE-OP DIAGNOSIS: Incarcerated right inguinal hernia, incarcerated umbilical hernia POST-OP DIAGNOSIS: same PROCEDURE: Open right-sided inguinal herniorrhaphy with mesh, open umbilical herniorrhaphy with mesh SURGEON: Arnie Mckeon ASSISTING SURGEON: Dora Diehl PRIVATE CLIENT ADVISOR: Ayda Lynch Refer to Anesthesia Record ESTIMATED BLOOD LOSS: 25 PATHOLOGY: none sent Patient was transported to: PACU Patient's condition: stable Indications: Gal is a 72-year-old male who comes to the hospital for the second time in the past few days with exacerbation of right-sided groin pain. He had previously undergone an ultrasound that demonstrated an incarcerated right-sided inguinal hernia. Today, he underwent a CAT scan that supported that diagnosis. On physical exam, he had a tender lump in his right groin that was nonreducible. Incidentally, he also has a umbilical port site hernia from a previous cholecystectomy. Procedure Description: After the induction of general anesthesia, the surgical site was then prepped and draped in the usual fashion. I began by making an oblique incision over the right inguinal region. I dissected down through the skin to the deep fascia. Next, I incised the fascia along the length of the inguinal canal to the external ring. This was actually a little challenging to find because of some scar tissue in the area. In order to ensure the appropriate location, the dissection was can continue to bit inferiorly below the reflection of the inguinal ligament towards the femoral canal. Once the anatomy was appropriately identified, I opened the inguinal canal from the external ring laterally. Once this was complete, I bluntly dissected the shelving edge of the inguinal ligament down towards the pubic tubercle. This tissue was quite attenuated and there was a significant amount of laxity along the inguinal floor. At the pubic tubercle,, I encircled all cord structures with a Rebekah drain. Next, I began dissecting the specific cord structures. There was quite a bit of fat in the inguinal canal associated with the cord structures. Great care was taken to spare the vas deferens and the blood supply to the testicle. Next, I isolated the hernia sac from the other inguinal structures. I reduced it back to its normal anatomic position. I then used a mesh plug to obliterate the defect at the internal ring. I fixed in place with interrupted Prolene stitches. Next, I buttressed the posterior floor of the inguinal canal with a large mesh patch. I started by fixing it to the pubic tubercle. Next, I used Prolene sutures to affix it to the shelving edge of the inguinal ligament and the conjoined tendon. Laterally I tacked it to the transversalis fascia and reconstructed an internal ring without any strain on the cord structures. Once this was complete, I irrigated the surgical field. It appeared hemostatic. I then closed the anterior portion of the fascia to reconstruct the front wall of the inguinal canal. I did this with interrupted Vicryl stitches. Once again, I irrigated the surgical field and inspected for hemostasis. Finally, I approximated the superficial fascia and the deep layers of the skin with absorbable suture. Skin was closed with running subcuticular stitches. Simultaneously, Dr. Diehl began dissection of the umbilical port site hernia. Once the hernia sac was cleared of the surrounding tissues the fascial edge was completely dissected, we delivered a Ventrilex mesh patch into the appropriate position. Care was taken to ensure that we had good overlap with the fascial edge. This was affixed in place. Next, the wound was irrigated, and the fascia was closed over the mesh. Finally, the subcutaneous tissues were approximated with interrupted sutures, and the skin was closed with subcuticular sutures. Bandages were applied to the umbilical site as well as the right inguinal incision, and the patient was awakened and transferred to the recovery unit.
[2022-06-09] MEDS: Acetaminophen 325 MG TAB 650 MG PO (21:22)
[2022-06-09] MEDS: Ibuprofen 600 MG TAB PO (23:59)
[2022-06-10 02:47] VITALS: BP 116/67; PULSE 53; RESP 148; TEMP 37.1; O2SAT 93
[2022-06-10] MEDS: Acetaminophen 325 MG TAB 650 MG PO ×2 (02:52→11:04)
[2022-06-10] MEDS: Ibuprofen 600 MG TAB PO (06:46)
[2022-06-10 08:11] VITALS: BP 116/69; PULSE 54; RESP 16; TEMP 36.9; O2SAT 95
--- NOTE | 2022-06-10 08:42 | INITIAL_ITS ---
- If Service Date Differs Date of service: 06/10/22 Time of Service: 08:42 Care Management Initial Assess REASON FOR HOSPITALIZATION:: Incarcerated inguinal hernia PAST MEDICAL HISTORY/PAST SURGICAL HISTORY:: All Active Problems (Updated 06/09/22 @ 13:52 by Arnie Mckeon MD). Right inguinal hernia (Acute). Hypoglycemia (Acute). Hypomagnesemia (Acute). Right hip pain (Acute). Dysphagia (Chronic). IDDM (insulin dependent diabetes mellitus) (Chronic). 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 (Acute). Squamous cell carcinoma of tonsil (Acute). Cervical lymphadenopathy (Acute). Tonsillar mass (Acute). Sleep apnea (Acute). Unintentional weight loss (Acute). Swallowing problem (Acute). Abnormal laboratory test (Acute). Screening for colon cancer (Acute). Chest pain (Acute). Asthma (Chronic). Medical History (Updated 06/09/22 @ 13:52 by Arnie Mckeon MD). Arthralgia. Back pain, acute. Bradycardia. Chondromalacia patellae of left knee. Chronic low back pain. Colon polyps. Dehydration. Depression. Diabetic peripheral neuropathy. Diverticulosis. DJD of right AC (acromioclavicular) joint. Essential tremor (11/21/14). Fatigue. GERD (gastroesophageal reflux disease). Headache. Cervical. Hip pain, left. History of tobacco use. HTN (hypertension). Hyperlipemia. Hypomagnesemia. Hypotension. Hypothyroidism. 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 Insect bite. Internal derangement of left knee. Lumbosacral neuritis. Neck pain on left side. Obesity. Osteoarthritis of left knee. Primary osteoarthritis of right hip. Prolonged depression. Psoriasis. Radicular syndrome of lower limbs. Resting tremor. Right groin pain. Right rotator cuff tear. Injection under fluoroscopy: 11/04/18. Status post rotator cuff repair. DOS: 01/25/2019. Septic arthritis of knee. Septic joint. Shoulder pain, left. Shoulder pain, right. Trigeminy. URI, acute. Vertigo. Vitamin B12 deficiency. Surgical History . 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 History of total left knee replacement (10/02/20). Hx of total knee arthroplasty. Right. S/P cholecystectomy. S/P lumbar spine operation. x2. Status post right rotator cuff repair (~01/25/19). Repair of supraspinatus, distal clavicle excision, biceps tenotomy. Dr. Espinal. 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 Trochanteric bursitis, left hip. S/P debridement with IT band lengthenin08/12/2021 PREVIOUS FUNCTIONAL STATUS/SOCIAL/FAMILY SUPPORTS:: Gla lives in [facility] with his son Sixto. He also has a daughter Dejah who lives in [place]. CURRENT FUNCTIONAL STATUS:: Gal was discharged before was able to meet with him. He had an inguinal hernia repair yesterday as well as an umbilical hernia repair; both were incarcerated. He was kept overnight for pain control and was discharged today. ADVANCE DIRECTIVES:: On file. Sixto is [facility] Has patient been provided with info about the portal/API?: Yes Did the patient sign up for the portal?: No CODE STATUS:: Full Code INSURANCE COVERAGE / FINANCIAL ISSUES:: medicare. [facility] PRIMARY CARE PHYSICIAN:: Beatriz Cotton POTENTIAL DISCHARGE NEEDS:: follow up with PCP and plan of care PATIENT/FAMILY EDUCATION NEEDS:: Review of discharge instructions, limitations, activity, medications, follow up plan, Ask Me Three TRANSPORTATION:: via private vehicle with family PLAN:: Gal will return home with no new services. He will follow up with his surgeon, PCP and community providers, and transport via private vehicle with family.
--- NOTE | 2022-06-10 12:16 | DSE_ITS ---
DS: Diagnosis Discharge Diagnosis (1) Right inguinal hernia: Status: Acute (2) Umbilical hernia: Status: Acute Discharge Plan Disposition Patient Disposition: HOME Condition: Good Discharge Details Reason For Visit: Right Inguinal Hernia Admit Date/Time: 06/09/22 20:07 Admit Provider: Arnie Mckeon Attending Provider: Arnie Mckeon Primary Care Provider: Beatriz Cotton V Hospital Course Hospital Course: When he presented to the emergency department with exacerbation of recent right- sided groin pain. He had physical exam findings consistent with an incarcerated inguinal hernia. Incidentally, he had an incarcerated umbilical hernia as well. He was brought to the operating room and underwent open right-sided inguinal herniorrhaphy with mesh, as well as a umbilical herniorrhaphy with mesh. He had pain after surgery and he was kept overnight for pain control. He was able to get up and go to the bathroom on his won this morning. Home Meds and New Rx's Prescriptions: Continued olanzapine 5 mg tablet 5 mg PO QHS meclizine 25 mg Tablet 25 mg PO Q6H PRN Label Comments: Only for dentist albuterol sulfate 8.5 GM HFA aerosol inhaler 2 puff Inhalation Q4H levothyroxine 125 mcg capsule 62.5 mcg PO DAILY omeprazole 40 mg capsule,delayed release(DR/EC) 40 mg PO QAM metformin 500 mg tablet extended release 24 hr 1,000 mg PO BID naloxone [Narcan] 4 mg/actuation spray,non-aerosol 1 spray intranasal Q2-3M PRNQty: 1 0RF Rx Instructions: spray 1 dose into ONE nostril; alternate nostrils w each dose until help arrives aspirin 81 mg tablet,delayed release (DR/EC) 81 mg PO DAILY fluoxetine 20 mg/5 mL (4 mg/mL) solution 40 mg UD DAILY diphenhydramine-acetaminophen 25-500 mg-mg/mL Solution 30 ml HS methocarbamol 500 mg tablet 500 mg PO Q6H PRN (Reason: muscle spasm) Qty: 14 0RF Discharge Instructions Instructions: Open Herniorrhaphy (DC), Inguinal Hernia (GEN) Additional Instructions: 1. Resume all of your medications. 2. Okay to use tylenol and ibuprofen over the counter as needed. 4. Leave bandages in place for 24 hours, then remove. 5. Shower with warm soapy water. Pat dry. Use bandaids if needed to protect your clothing. 6. No soaking or tub baths until I see you in the office. 7. No heavy lifting until I see you in the office. (no pulling, pushing or lifting >10 lb) 8.Call the office (or go directly to the emergency room after hours) if you notice any of the following: Develop chills (warm to touch), or if you have a thermometer and your temperature is above 101 Difficulty breathing or difficultly swallowing Persistent vomiting Any bleeding ? exceeding one tablespoon 6. Call your physician if the site where your intravenous was started becomes red, swollen, painful, and warm to touch. Referrals: Dora Diehl MD [ [facility] STAFF PHYSICIAN] - 06/24/22 11:00 am Activity:: No heavy lifting Remove Dressings/Wound Care:: 24 hours Shower/Bathe:: 24 hours Activity:: see above Equipment/Supplies:: No Equipment Needed Diet:: As Tolerated Discharge Orders Discharge Orders: Discharge Order (Routine); Ordered 06/09/22 Ordered By: Arnie Mckeon DS: Summary Time Spent with Patient providing and/or coordinating discharge services: Less than 30 minutes Status at Discharge Functional status at discharge: uses cane/walker Overall status at discharge: patient is progressing back to baseline Mental Status: mental status grossly normal Speech and Movement: speech and movement normal Mood: congruent mood Affect: normal affect Exam Const General: cooperative, comfortable and no acute distress Orientation: alert and oriented x3 Resp Effort & Inspection: normal respiratory effort GI Inspection: normal to inspection and incision (c/d/i) Psych Mental Status: mental status grossly normal Speech and Movement: speech and movement normal Mood: congruent mood Affect: normal affect DS: Data Vitals/I&O Vitals and I&O: Vital Signs Temperature 98.4 F 06/10/22 08:11 Temperature Source Tympanic 06/10/22 08:11 Pulse 54 L 06/10/22 08:11 Pulse Rhythm Regular 06/10/22 07:40 Respiratory Rate 16 06/10/22 08:11 Respiratory Effort Non-Labored 06/10/22 07:40 Respiratory Depth Normal 06/10/22 07:40 Respiratory Pattern Normal 06/10/22 07:40 Blood Pressure 116/69 06/10/22 08:11 Pulse Oximetry 95 06/10/22 08:11 Respiratory End-tidal CO2 32 06/09/22 17:15 Oxygen Delivery Method Room Air 06/10/22 08:11 Oxygen Flow Rate 0 06/10/22 08:11 Pain Level 3 06/10/22 11:04 Comment 06/09/22 19:42 Intake & Output 06/09/22 06/10/22 06/10/22 23:59 11:59 23:59 Intake Total 1000 / 1000 Output Total 650 / 650 700 / 700 Balance 350 / 350 -700 / -700 Weight 211 lb 13.828 oz Intake: IV 1000 / 1000 Output: Urine 650 / 650 700 / 700 Other: Urine Color Yellow Yellow Urine Appearance Clear Clear Urine Odor Normal Comment In ER Emesis Description None Voiding Methods Toilet Toilet PFSH All Active Problems Umbilical hernia (Acute) Right inguinal hernia (Acute) Hypoglycemia (Acute) Hypomagnesemia (Acute) Right hip pain (Acute) Dysphagia (Chronic) 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 (Acute) Squamous cell carcinoma of tonsil (Acute) Cervical lymphadenopathy (Acute) Tonsillar mass (Acute) Sleep apnea (Acute) Unintentional weight loss (Acute) Swallowing problem (Acute) Abnormal laboratory test (Acute) Screening for colon cancer (Acute) Chest pain (Acute) Asthma (Chronic) Medical History Arthralgia Back pain, acute Bradycardia Chondromalacia patellae of left knee Chronic low back pain Colon polyps Dehydration Depression Diabetic peripheral neuropathy Diverticulosis DJD of right AC (acromioclavicular) joint Essential tremor (11/21/14) Fatigue GERD (gastroesophageal reflux disease) Headache Cervical Hip pain, left History of tobacco use HTN (hypertension) Hyperlipemia Hypomagnesemia Hypotension Hypothyroidism 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) Insect bite Internal derangement of left knee Lumbosacral neuritis Neck pain on left side Obesity Osteoarthritis of left knee Primary osteoarthritis of right hip Prolonged depression Psoriasis Radicular syndrome of lower limbs Resting tremor Right groin pain Right rotator cuff tear Injection under fluoroscopy: 11/04/18 Status post rotator cuff repair DOS: 01/25/2019 Septic arthritis of knee Septic joint Shoulder pain, left Shoulder pain, right Trigeminy URI, acute Vertigo Vitamin B12 deficiency Surgical History 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 Trochanteric bursitis, left hip S/P debridement with IT band lengthenin08/12/2021 Family History Father Heart disease Brother Tremor Son Seizure Mother Osteoarthritis Social History Smoking/Tobacco Use Status: Former Tobacco Use Quit Date: 09/07/79 Pack-years: 1 Smoking risk assessment performed?: Yes Alcohol Intake: current Alcohol Intake frequency: holidays/special occasions only Drug use: Never Substance use type: does not use Household members: children Housing: house Number of Children: 2 current occupation: Retired Current gender identity: male What type of physical activity do you participate in: independent ambulation Do you feel safe at home: Yes Do you feel safe in your relationship?: Yes
[2022-06-10] MEDS: Heparin 500 UNITS/5 ML SYRINGE IVP (13:11)
--- NOTE | 2022-06-10 18:10 | PDOC.CMDIS ---
- If Service Date Differs Date of service: 06/10/22 Time of Service: 18:10 LACE Index Scoring Tool - Questions: Length of Stay (in days): 1 Acuity (Admit via E.D.?): Yes Comorbidities: Diabetes w/o Complication, Any Tumor E.D. Visits: 4 - Answers: Total Score: 11 Risk of Readmission: High Risk Care Management Discharge Reason for Hospitalization: Incarcerated inguinal hernia Discharge Plan: Gal will return home with no new services. He will follow up with his surgeon, PCP and community providers, and transport via private vehicle with family. Patient/Family Education Needs: Review of discharge instructions, limitations, activity, medications, follow up plan, Ask Me Three
== END 2022-06-10 13:22 | disposition home or self-care (01) ==
LOC: ER 13:44 → SUR 13:56 → MS 17:44 → SUR 06-10 09:51 → MS 06-10 09:51
PROVIDERS: Surgery; Admitting Provider Surgery; Emergency Provider Physician Assistant; PCP Family Medicine; Visit Provider Surgery
PROC: 0YU50JZ Supplement Right Inguinal Region with Synthetic Substitute, Open Approach (ICD-10-PCS; CPT 49507; principal; 2022-06-09 14:30)
DX: K40.90 Unilateral inguinal hernia, without obstruction or gangrene, not specified as recurrent (principal); K42.9 Umbilical hernia without obstruction or gangrene; Z20.822 Contact with and (suspected) exposure to COVID-19; E83.42 Hypomagnesemia; Z79.4 Long term (current) use of insulin; G47.30 Sleep apnea, unspecified; J45.909 Unspecified asthma, uncomplicated; E11.42 Type 2 diabetes mellitus with diabetic polyneuropathy; K21.9 Gastro-esophageal reflux disease without esophagitis; E78.5 Hyperlipidemia, unspecified; I10 Essential (primary) hypertension; E03.9 Hypothyroidism, unspecified
CPT/HCPCS: 49507; 49587; 80053; 87635; 96360; 96361; 99219; 99285; 74177; 81003; 83605; 83735; 85025; C1781; G0378; J0131; J1100; J1885; J2001; J2250; J2405

== ENCOUNTER → 2022-06-24 10:50 | Outpatient (BNVA) | payer MEDICARE, OTHER, SELFPAY | PROVIDERS: PCP Family Medicine; Referring Provider Family Medicine; Visit Provider Surgery | DX: Z48.817 Encounter for surgical aftercare following surgery on the skin and subcutaneous tissue (principal) ==

== ENCOUNTER 2022-07-23 10:05 | Day surgery (SDC) | payer MEDICARE, OTHER, SELFPAY ==
--- NOTE | 2022-07-23 06:50 | W.COLOREPORT ---
Date of service: 07/23/22 Time of Service: 11:45 Colonoscopy Report Date of procedure: 07/23/22 Pre-op diagnosis general: colon cancer screening and hx of polyps Post-op diagnosis procedure note: other (polyp and diverticulosis) Procedure: Colonoscopy with polypectomy Surgeon: Dora Diehl Anesthesia Type: General:No Airway Estimated blood loss (mL): 2 Pathology: other (sigmoid polyp) Complications: None Disposition: same day Indications: The patient is a pleasant 71-year-old male who is here to discuss another screening colonoscopy. His last colonoscopy was in 2008 and he was noted to have a tubular adenoma. He denies any changes in bowel habits, melena, hematochezia, unintentional weight loss or family history of colon cancer. The procedure and risks were discussed. The prep was reviewed in detail. Risks, benefits and complications have been reviewed. Complications include but are not limited to bleeding, pain, perforation, missed small lesion/polyp, sore throat, aspiration and adverse reaction to the medications. Questions were entertained and answered to their satisfaction and they wished to proceed. No guarantees were given or implied. Prep: Miralax/Dulcolax Retraction Time: 10 minutes Findings: one polyp moderate sigmoid diverticulosis Procedure Description: After informed consent was obtained the patient was taken to the procedure room and placed in a left decubitous position. Monitors were applied and a time out was done. The patients name, date of , procedure, allergies to medications and metal in their body was reviewed. The patient was then sedated. Once sedated and comfortable a rectal exam was done. External exam was normal. Internal exam revealed a normal sphincter tone and no palpable masses. The prostate felt smooth but enlarged. The scope was then introduced and retro-flexed. No internal hemorrhoids, polyps or masses were identified on retro-flexion. The scope was then advanced to the cecum without difficulty. The ileocecal vlave and appendiceal orifice were identified. The prep was good. The scope was then slowly retracted over 10 minutes back into the rectum. Polyps were removed with cold forceps in the sigmoid colon. There was moderate sigmoid diverticulosis noted. The scope was removed and the patient was woken up and taken back to Same day surgery in stable condition. The patient tolerated the procedure well and there were no immediate complications.
--- NOTE | 2022-07-23 06:51 | PDOC.DSDIS_ITS ---
Date of service: 07/23/22 Time of Service: 11:46 Discharge Plan Disposition Patient Disposition: HOME Condition: Good Discharge Details Reason For Visit: colonoscopy Attending Provider: Dora Diehl Primary Care Provider: Beatriz Cotton V Home Meds and New Rx's Prescriptions: Continued olanzapine 5 mg tablet 5 mg PO QHS meclizine 25 mg Tablet 25 mg PO Q6H PRN Label Comments: Only for dentist albuterol sulfate 8.5 GM HFA aerosol inhaler 2 puff Inhalation Q4H PRN levothyroxine 125 mcg capsule 62.5 mcg PO DAILY omeprazole 40 mg capsule,delayed release(DR/EC) 40 mg PO QAM metformin 500 mg tablet extended release 24 hr 1,000 mg PO BID fluoxetine 40 mg capsule 1 cap PO DAILY diphenhydramine-acetaminophen [Tylenol PM Extra Strength] 25-500 mg Tablet 2 tab PO Q4H PRN Rx Instructions: administer while awake aspirin 81 mg tablet,delayed release (DR/EC) 81 mg PO DAILY Discharge Instructions Instructions: Colorectal Polyps (DC), Diverticulosis (DC) Additional Instructions: Findings: 1 polyp diverticulosis Follow up: depends on pathology results Please call if you develop: fevers >101.5 Nausea or Vomiting Abdominal pain that is not transient Rectal bleeding that is more then a tbsp A hard abdomen and inability to pass gas DAY SURGERY UNIT POST ENDOSCOPY INSTRUCTIONS Instructions for everyone who is given Anesthesia: For your safety, please do the following for the next 24 Hours: a. Do not drive or operate dangerous equipment b. Do not drink alcohol beverages or use any recreational drugs for the first 24 hours or while taking pain medications. The medications in your body may have a reaction that can be dangerous. c. Do not make any important decisions or sign any important papers 1. Generally there are no restrictions on your activity after a day or so has gone by, but you may feel a bit fatigued for a few days. 2. After you arrive home you may have a light meal and return to a normal diet as you can tolerate it without feeling sick to your stomach. 3. After surgery, you may feel pain or discomfort. This should be only transient, but if it persists please contact your doctor. 4. If there are any questions regarding the findings of your procedure, please feel free to contact your doctor. 6. If you are unable to contact your doctor with a problem, contact the [facility] at [phone]. 4. Continue all your regular medications unless directed otherwise. I understand the above instructions and have no questions. Signature of Patient or Responsible Adult Escort Date/Time Name of Responsible Adult Escort Signature of Nurse Date/Time Activity:: Activity as Tolerated Diet:: high fiber Discharge Orders Discharge Orders: Discharge Order (Routine); Ordered 07/23/22 Ordered By: Dora Diehl
[2022-07-23 10:40] VITALS: BP 141/88; PULSE 75; RESP 16; TEMP 36.3; O2SAT 99
--- NOTE | 2022-07-23 11:15 | W.ANESPRE ---
General Info Date of Service Date Performed: 07/23/22 Height: 5 ft 10.5 in Weight: 88.6 kg Body Mass Index (BMI): 27.6 Surgical Procedure: Operation Date: 07/23/22 11:35 Proposed Procedure Side Surgeon p Colonoscopy Dora Diehl MD Meds Allergies and Home Medications Allergies Allergy/AdvReac Type Severity Reaction Status Date / Time ceftriaxone Allergy Severe ANAPHYLAXIS Verified 07/23/22 10:55 Cephalosporins Allergy Severe Anaphylaxsi Verified 07/23/22 10:55 s ciprofloxacin AdvReac Dizziness/L Verified 07/23/22 10:55 ightheade fentanyl AdvReac Agitation, Unverified 07/23/22 10:55 confusion meperidine HCl [From Demerol] AdvReac vomiting Verified 07/23/22 10:55 morphine AdvReac vomiting Verified 07/23/22 10:55 Home Medication Medication Instructions Recorded albuterol sulfate 90 mcg/actuation 2 puff inhalation Q4H PRN 10/16/14 aerosol inhaler meclizine 25 mg tablet 25 mg PO Q6H PRN 06/28/20 levothyroxine 125 mcg capsule 62.5 mcg PO DAILY 09/10/21 omeprazole 40 mg capsule,delayed 40 mg PO QAM 09/10/21 release aspirin 81 mg tablet,delayed 81 mg PO DAILY 01/02/22 release metformin 500 mg tablet,extended 1,000 mg PO BID 06/03/22 release 24 hr olanzapine 5 mg tablet 5 mg PO QHS 06/03/22 diphenhydramine 25 2 tab PO Q4H PRN 07/21/22 mg-acetaminophen 500 mg tablet (Tylenol PM Extra Strength) fluoxetine 40 mg capsule 1 cap PO DAILY 07/21/22 Current Visit Medications: Current Medications Generic Name Dose Route Start Last Admin Trade Name Freq PRN Reason Stop Dose Admin Ringer's Solution 1,000 mls @ 80 mls/hr 07/23/22 06:00 IV 07/23/22 23:59 INFUSION BRANDON Ondansetron HCl 4 mg/ Sodium 52 mls @ 200 mls/hr 07/23/22 06:51 Chloride IVPB Q6H PRN PRN IV Miscellaneous Supplies 1 each 07/23/22 06:00 Iv Access IV 07/23/22 23:59 DIRECTED BRANDON Sodium Chloride 0 ml 07/23/22 06:00 Normal Saline Flush 10 Ml Syr IV 07/23/22 23:59 PRN PRN Sodium Chloride 0 ml 07/23/22 06:00 Normal Saline 10 Ml Vial IJ 07/23/22 23:59 DIRECTED PRN Sterile Water 0 ml 07/23/22 06:00 Water,Injection,Sterile 10 Ml Vial IJ 07/23/22 23:59 DIRECTED PRN PFSH Active Problems Active Problems: Problem Status Onset Code Umbilical hernia K42.9 Hypoglycemia E16.2 Hypomagnesemia E83.42 Dysphagia R13.10 IDDM (insulin dependent diabetes mellitus) 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 Cervical lymphadenopathy R59.0 Tonsillar mass J35.8 Sleep apnea G47.30 Unintentional weight loss R63.4 Swallowing problem R13.10 Abnormal laboratory test R89.9 Screening for colon cancer Z12.11 Chest pain R07.9 Asthma J45.909 Medical History Medical History Arthralgia Back pain, acute Bradycardia Chondromalacia patellae of left knee Chronic low back pain Colon polyps Dehydration Depression Diabetic peripheral neuropathy Diverticulosis DJD of right AC (acromioclavicular) joint Essential tremor (11/21/14) Fatigue GERD (gastroesophageal reflux disease) Headache Cervical Hip pain, left History of tobacco use HTN (hypertension) Hyperlipemia Hypomagnesemia Hypotension Hypothyroidism 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) Insect bite Internal derangement of left knee Lumbosacral neuritis Neck pain on left side Obesity Osteoarthritis of left knee Primary osteoarthritis of right hip Prolonged depression Psoriasis Radicular syndrome of lower limbs Resting tremor Right groin pain Right inguinal hernia Right rotator cuff tear Injection under fluoroscopy: 11/04/18 Status post rotator cuff repair DOS: 01/25/2019 Septic arthritis of knee Septic joint Shoulder pain, left Shoulder pain, right Trigeminy URI, acute Vertigo Vitamin B12 deficiency Medical History Comments:: 06/09/22 - pt reports phelgm in his throat whch is a residual effect of throat cancer. Surgical History Surgical History History of total left hip replacement (09/02/19) History of total left knee replacement (10/02/20) Hx of total knee arthroplasty Right S/P cholecystectomy S/P inguinal hernia repair using synthetic patch (~06/09/22) and umbilical hernia S/P lumbar spine operation x2 Status post right rotator cuff repair (~01/25/19) Repair of supraspinatus, distal clavicle excision, biceps tenotomy Dr. 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 Trochanteric bursitis, left hip S/P debridement with IT band lengthenin08/12/2021 Tobacco Smoking/Tobacco Use Status: Former Tobacco Use Alcohol Alcohol Intake: current Alcohol intake frequency: a few times a month Alcohol type: beer Substance Use Substance use: Never Substance use type: does not use Vital Signs and Lab Results Vital Signs Most Recent Vital Signs in EMR: Most Recent Vital Signs Temp Pulse Resp BP Pulse Ox 36.3 C L 75 16 141/88 H 99 07/23/22 10:40 07/23/22 10:40 07/23/22 10:40 07/23/22 10:40 07/23/22 10:40 Point of Care Results Point of Care Results: Finger Stick Blood Glucose 111 07/23/22 11:00 Lab Results Blood Type / Crossmatch: No Data to Display Complete Blood Count: No Data to Display Complete Metabolic Panel: No Data to Display Liver Function Panel: No Data to Display Coagulation Panel: No Data to Display Cardiac Panel: No Data to Display Arterial Blood Gas: No Data to Display Venous Blood Gas: No Data to Display Pancreas Panel: No Data to Display Thyroid Panel: No Data to Display Infectious Disease: No Data to Display Blood Cultures: No Data to Display Toxicology Panel: No Data to Display Imaging and Studies Imaging and Studies Study information below may be from another EMR and interpreted by another provider. Please see original notes in EMR for more complete details. EKG Summary: 08/26: sinus rhythm, prob LAE. Stress Test Summary: 08/26: max HR 46% for predicted age. non-diagnostic. LVEF 50%. Echocardiogram Summary: 08/26: LVEF 60%, trace/mild TR. mild MR. 12/23: no prefusion defects noted. LVEF 43%. Anesthesia Assessment and Plan Anesthesia History Personal History: No History of Anesthesia Complications Family History: No Family History of Anesthesia Complications Exercise Tolerance Exercise Tolerance: Metabolic Equivalents>4 Pertinent Negatives Pertinent Negatives: No Symptoms of GERD Cardiac & Pulmonary Exam Cardiac Exam: Normal S1/S2 Heart Sounds Pulmonary Exam: Clear Bilateral Breath Sounds Implantable Cardiac Device Does patient have a Pacemaker or an ICD?: No Airway Exam Known Difficult Airway: No Mallampati Class: 4 Mouth Opening: Normal (> 3cm) Thyromental Distance: Greater than 3 cm Neck Range of Motion: Full ROM Neck Circumference: Thick Teeth Condition: Generalized Poor Dentition Airway Comments: #12 broken #11 chipped ASA Classification ASA Score: ASA 3 Emergency Case?: No NPO Status NPO Status: NPO Clears >2 hours, Solids >8 hours Anesthesia Plan Resuscitation Status: Full Code Anesthesia Technique: General Anesthesia Airway Planned: Natural Airway Monitors Used: Standard Monitors
[2022-07-23 11:17] VITALS: BMI 27.6
[2022-07-23] MEDS: Lactated Ringers 1,000 ML 80 ML IV (11:20)
--- NOTE | 2022-07-23 12:07 | BOWEL_PTH ---
PATIENT: Arianna Arevalo LOC: [facility] U#:[id number] AGE/SX: 72/M ROOM: RE07/23/[address]: Dora Diehl MD : 1950 BED: DIS: 07/23/2022 SPEC #: [id number] RECD: 07/23/22 13:01 STATUS: KELLIEMichael RESilvestre #: [id number] ALBERTO: 07/23/22 12:[address]: Dora Diehl DEPT: Surgical Specimen RECD BY: Kiesha Parkinson ENTERED: 07/23/22 13:02 SP TYPE: Bowel OTHR DR: Beatriz Cotton V Tissues: 1 - BIOPSY BOWEL Procedures: GROSS AND MICRO LEVEL 4 Comments: [id number]
[2022-07-23 12:25] VITALS: BP 97/72; PULSE 79; RESP 12; TEMP 36.6; O2SAT 93
[2022-07-23 12:54] VITALS: BP 138/79; PULSE 62; RESP 16; TEMP 36.4; O2SAT 97
--- NOTE | 2022-07-23 13:11 | W.ANESPOSTOP ---
Postoperative Evaluation Date, Time and Location Date Performed: 07/23/22 Time Performed: 12:55 Patient Location: Day Surgery Unit Vital Signs Most Recent Imported Vital Signs: Most Recent Vital Signs Temp Pulse Resp BP Pulse Ox 36.4 C L 62 16 138/79 97 07/23/22 12:54 07/23/22 12:54 07/23/22 12:54 07/23/22 12:54 07/23/22 12:54 Pain Score Most Recent Pain Score: Most Recent Pain Score Pain Level 0 07/23/22 12:54 Assessment Mental Status: Awake (Alert & Oriented to Patient Baseline) Airway and Respiratory Function: Patent airway with normal (patient baseline) respiratory exam Cardiovascular Function: Hemodynamically Stable Hydration Status: Adequately Hydrated Nausea & Vomiting: No Nausea or Vomiting Pain: Pt. Denies Any Pain Peripheral Nerve Block: Patient did not receive a nerve block
== END 2022-07-23 13:15 | disposition home or self-care (01) ==
PROVIDERS: PCP Family Medicine; Visit Provider Surgery
PROC: 0DJD8ZZ Inspection of Lower Intestinal Tract, Via Natural or Artificial Opening Endoscopic (ICD-10-PCS; CPT 45378; principal; 2022-07-23 11:30)
DX: Z12.11 Encounter for screening for malignant neoplasm of colon (principal); K63.5 Polyp of colon; K57.30 Diverticulosis of large intestine without perforation or abscess without bleeding; Z86.010 Personal history of colon polyps
CPT/HCPCS: 45380; 88305

== ENCOUNTER 2022-11-20 01:09 | Outpatient (CLI) | payer MEDICARE, SELFPAY ==
[2022-11-20 08:46] LABS: CREATININE 1.2 mg/dL (0.70-1.30); Estimated GFR 63.85 (mL/min/1.73m2); TSH 0.91 uIU/mL (0.36-3.74)
--- NOTE | 2022-11-20 09:00 | DI.CT_ITS ---
Exam(s) CT NECK CHEST W EXAM: CT NECK CHEST W CLINICAL HISTORY: TONSILLAR CA, C09.9, S/P CHEMO, ASSESS FOR RECURRENCE. TECHNIQUE: Imaging Protocol: Axial computed tomography images with coronal and sagittal reformatted images were created and reviewed CONTRAST MATERIAL: Intravenous: Omnipaque 350 Contrast volume:110 ml contrast COMPARISON: CT CT NECK W from 09/26/2021 CR XR PORTABLE CHEST AP from 01/13/2022 FINDINGS: Parotids/submandibular: Normal. Thyroid: Stable small nodule. Lymphadenopathy: Previously noted abnormally enlarged lymph node anterior to right sternocleidomast oid muscle now measures 10 millimeters in maximal dimension compared to 2.7 cm on prior. Carotids/Jugular: No significant stenosis or dissection.. Soft tissues: Right-sided tonsillar mass no longer visible. The floor the mouth is unremarkable. The epiglottis and vocal cords are within normal limits. Bones: Degenerative changes of the cervical spine. Visualized portions of the brain and orbits: Unremarkable. Sinuses and mastoids: Clear. Chest CT: The heart is dilated. Coronary artery calcifications are seen. There is a mitral valve prosthesis. Aorta normal in diameter showing mild atherosclerotic changes. Small mediastinal lymph nodes. Lungs: Dense infiltrate right lower lobe posteriorly. Other scattered mild infiltrate seen right mid dle lobe, left upper and lower lobes. No visible mass. No suspicious pulmonary nodules. Bones: Degenerative changes in the spine. No compression fracture, lytic or blastic lesion. Upper abdomen: Status post cholecystectomy. IMPRESSION: Right tonsillar mass no longer visible. Marked interval decrease in size of right neck adenopathy. Chest CT: Dense pneumonia right lower lobe. Mild infiltrates right middle, left upper and left lower lobes. No findings to suggest metastatic disease. Unexpected findings RADIATION DOSE DELIVERED: 1,346.3mGy.cm Total DLP DATA REPOSITORY: All CT scans at this facility are submitted to the National Radiology Data Registry (NRDR) Dose Index Registry (DIR) with the [employer] (ACR). RADIATION OPTIMIZATION: All CT scans at this facility use at least one of these dose optimization te chniques: automated exposure control; mA and/or kV adjustment per patient size (includes targeted exa ms where dose is matched to clinical indication); or iterative reconstruction.
[2022-11-20] MEDS: Omnipaque 350 MG/ML 500 ML BTL-Imaging package 110 ML IJ (09:32)
[2022-11-20] MEDS: Normal Saline - Diluent 50 ML VIAL IJ (09:33)
== END 2022-11-20 01:29 ==
PROVIDERS: PCP Family Medicine; Visit Provider Preventive Medicine Undersea and Hyperbaric Medicine
DX: C09.9 Malignant neoplasm of tonsil, unspecified (principal); Z79.899 Other long term (current) drug therapy; Z92.21 Personal history of antineoplastic chemotherapy; R59.0 Localized enlarged lymph nodes; J18.9 Pneumonia, unspecified organism; R91.8 Other nonspecific abnormal finding of lung field; Z01.812 Encounter for preprocedural laboratory examination
CPT/HCPCS: 70491; 71260; 82565; 84439; 84443

== ENCOUNTER 2023-01-29 10:50 | Outpatient (REF) | payer MEDICARE, SELFPAY ==
[2023-01-29 15:06] LABS: HGB 14.7 g/dL (13.5-17.5); MCH 30.9 pg (27.0-33.0); MCV 97 fL (80-95); MPV 9.8 fL (8.0-11.0); Platelet Count 297 10^3/uL (130-400); RBC 4.75 10^6/uL (4.36-5.78); RDW 13.2 % (11.8-14.1); RDW-SD 47.2 fL; WBC 3.25 10^3/uL (4.4-10.8)
[2023-01-29 15:32] LABS: ALT 22 U/L (16-63); AST 15 U/L (15-37); Albumin 3.8 g/dL (3.4-5.0); Alkaline Phosphatase 65 U/L (46-116); Anion Gap 6.8 mmol/L (3-11); BUN 25 mg/dL (7-18); Bilirubin, Total 0.4 mg/dL (0.2-1.0); CO2 30.2 mmol/L (21.0-32.0); Calcium 9.3 mg/dL (8.5-10.1); Chloride 104 mmol/L (98-107); Estimated GFR 79.47 (mL/min/1.73m2); Glucose 110 mg/dL (74-106); Potassium 4.4 mmol/L (3.5-5.1); Sodium 141 mmol/L (136-145); Total Protein 7.1 g/dL (6.4-8.2)
[2023-01-29 16:04] LABS: Hemoglobin A1C 5.9 % (<5.7)
[2023-01-30 20:30] LABS: PSA, Screening 1.3 ng/mL (<=6.5)
== END 2023-01-29 10:51 | disposition home or self-care (01) ==
LOC: NCHCN 10:50
PROVIDERS: PCP Family Medicine; Visit Provider Family Medicine
DX: E11.649 Type 2 diabetes mellitus with hypoglycemia without coma (principal); Z00.00 Encounter for general adult medical examination without abnormal findings; D64.9 Anemia, unspecified
CPT/HCPCS: 80053; 84153; 85027; 83036

== ENCOUNTER 2023-05-06 11:59 | Emergency (ER) | payer MEDICARE, SELFPAY ==
--- NOTE | 2023-05-06 12:00 | RT.EKG_ITS ---
APPROVED REPORT Exam: Resting ECG Reason for Exam: Dizziness Patient Location: E HR:46 bpm ECG Measurements Heart Rate 46 AXIS VT 186 P -57 QRSd 111 QRS 17 QT [id number] T 175 QTc 0 Conclusion Ectopic atrial bradycardia...abnormal P axis, V-rate< 60 Ventricular bigeminy...bigeminy string>4 w/ V complexes Low voltage, extremity leads...all extremity leads <0.5mV Nonspecific T abnrm, anterolateral leads...T <-0.10mV, I aVL V2-V6
[2023-05-06 12:04] VITALS: BP 130/77; PULSE 32; RESP 20; TEMP 37; O2SAT 99
--- NOTE | 2023-05-06 12:15 | DI.RAD_ITS ---
Exam(s) XR PORTABLE CHEST AP EXAM: XR PORTABLE CHEST AP CLINICAL HISTORY: lightheaded TECHNIQUE: 2D digital imaging was performed. COMPARISON: CR XR PORTABLE CHEST AP from 01/13/2022 FINDINGS: Leads overlie the chest. LUNGS: Suboptimally inflated but clear. No pleural abnormality seen. HEART: Normal size. AORTA: Normal diameter. BONES: Unremarkable for age. Soft tissues: Unremarkable. IMPRESSION: No acute findings. DATA REPOSITORY: RADIATION DOSE DELIVERED:
--- NOTE | 2023-05-06 12:25 | ED.GENADUL_ITS ---
Discharge Plan Disposition Patient Disposition: Home Condition: Stable Discharge Details Clinical Impression: Bradycardia, sinus Primary Care Provider: Beatriz Cotton V ED Provider: Chapincito Vang Home Meds and New Rx's Prescriptions: Continued olanzapine 5 mg tablet 5 mg PO QHS meclizine 25 mg Tablet 25 mg PO Q6H PRN Patient Comments: Only for dentist albuterol sulfate 8.5 GM HFA aerosol inhaler 2 puff Inhalation Q4H PRN levothyroxine 125 mcg capsule 62.5 mcg PO DAILY omeprazole 40 mg capsule,delayed release(DR/EC) 40 mg PO QAM metformin 500 mg tablet extended release 24 hr 1,000 mg PO BID fluoxetine 40 mg capsule 1 cap PO DAILY diphenhydramine-acetaminophen [Tylenol PM Extra Strength] 25-500 mg Tablet 2 tab PO Q4H PRN Rx Instructions: administer while awake aspirin 81 mg tablet,delayed release (DR/EC) 81 mg PO DAILY simvastatin 10 mg tablet 10 mg PO DAILY Discontinued bisoprolol fumarate 5 mg tablet 5 mg PO DAILY Discharge Instructions Additional Instructions: You were in a rhythm called sinus bradycardia which is not a life threatening arrhythmia I would recommend stopping your bisoprolol follow up with your primary care provider within 1-2 weeks If you feel more ill, have chest pain or difficulty breathing return to the emergency department Medical Decision Making 72 yo male with hx of iddm, asthma, htn, who comes in with chief complaint of lightheaded. He has had the lightheaded sensation constantly since February and saw his pcp office today and was found to have a pulse in the 30's so was referred here. He arrives ambulatory and appears well. He denies fevers, chills, chest pain, dyspnea, known tick bites. He is caox4 speaking clearly in no distress. Has clear lungs, no murmurs, no abdominal tenderness. ekg on my read is sinus garry with ventricular bigeminy, is on a bisoprolol which is likely contributing to the bradycardia. Will obtain cbc, cmp, troponin and cxr and monitor on tele. pt stable, labs unremarkable, continues to be in sinus garry with rates of high 40's and 50's which I suspect is from being on a beta rommel. He is asymptomatic, doesn't want admission and given he is in sinus garry and has stable vitals other then the HR of high 40's to 50's do not feel he requires hospitalization. Advised to stop his bisoprolol, follow up with his pcp and return precautions given Differential Diagnosis Differential Diagnosis: sick sinus, medication side effect Medical Records Medical records reviewed: Yes I reviewed the patient's medical records. Imaging Data Radiologic Study: Attestation: I personally reviewed and interpreted this imaging study as follows: Imaging: X-Ray Radiologist's impression: no acute findings Lab Data Lab results reviewed: Yes I reviewed the patient's lab results. ECG Data Attestation: I personally reviewed and interpreted this ECG (s) as follows: Prior ECG tracings: available for review Interpretation: sinus garry with bigeminy, pr 186, no stemi 2nd ekg sinus bradycardia, pvc's, no longer in bigeminy, rate of 47, no acute ischemic findings HPI General Mode of arrival: ambulatory . Date/Time Provider Initiated Documentation: 05/06/23 12:02 . Limitations to Documentation: no limitations . Information obtained by: patient . History of Present Illness 72 year old M presents to the emergency department with the chief complaint of lightheaded, described as moderate, Patient started experiencing this month(s) (2) and it has been constant. No relieving factors improve symptom(s), No exacerbating factors reported . Patient notes no other symptoms.. Patient did receive the following treatments prior to arrival, none Related Data Home Medications Medication Instructions Recorded Confirmed albuterol sulfate 90 mcg/actuation 2 puff inhalation Q4H PRN 10/16/14 07/23/22 aerosol inhaler meclizine 25 mg tablet 25 mg PO Q6H PRN 06/28/20 07/23/22 levothyroxine 125 mcg capsule 62.5 mcg PO DAILY 09/10/21 05/06/23 omeprazole 40 mg capsule,delayed 40 mg PO QAM 09/10/21 05/06/23 release aspirin 81 mg tablet,delayed 81 mg PO DAILY 01/02/22 05/06/23 release metformin 500 mg tablet,extended 1,000 mg PO BID 06/03/22 07/23/22 release 24 hr olanzapine 5 mg tablet 5 mg PO QHS 06/03/22 07/23/22 diphenhydramine 25 2 tab PO Q4H PRN 07/21/22 07/23/22 mg-acetaminophen 500 mg tablet (Tylenol PM Extra Strength) fluoxetine 40 mg capsule 1 cap PO DAILY 07/21/22 05/06/23 simvastatin 10 mg tablet 10 mg PO DAILY 05/06/23 05/06/23 Allergies Allergy/AdvReac Type Severity Reaction Status Date / Time ceftriaxone Allergy Severe ANAPHYLAXIS Verified 05/06/23 12:09 Cephalosporins Allergy Severe Anaphylaxsi Verified 05/06/23 12:09 s ciprofloxacin AdvReac Dizziness/L Verified 05/06/23 12:09 ightheade fentanyl AdvReac Agitation, Unverified 05/06/23 12:09 confusion meperidine HCl [From Demerol] AdvReac vomiting Verified 05/06/23 12:09 morphine AdvReac vomiting Verified 05/06/23 12:09 General Stated Complaint: GenMedical CASIMIRO: 2 Review of Systems All systems reviewed & are unremarkable except as noted in HPI and below Constitutional Constitutional: Denies chills, Denies fever(s) and Denies weakness Cardiovascular Cardiovascular: Denies chest pain and Denies dyspnea Respiratory Respiratory: Denies cough and Denies dyspnea Gastrointestinal Gastrointestinal: Denies abdominal pain, Denies nausea and Denies vomiting Genitourinary Genitourinary: Denies dysuria Musculoskeletal Musculoskeletal: Denies joint swelling Integumentary/Breasts Skin/Breast: Denies rash Neurologic Neurologic: Denies weakness PFSH All Active Problems (Updated 05/06/23 @ 13:49 by Chapincito Vang MD) Bradycardia, sinus (Acute) Sensorineural hearing loss (Acute) Tubular adenoma of colon (Acute) Umbilical hernia (Acute) Hypoglycemia (Acute) Hypomagnesemia (Acute) Dysphagia (Chronic) 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 (Acute) Squamous cell carcinoma of tonsil (Acute) Cervical lymphadenopathy (Acute) Tonsillar mass (Acute) Sleep apnea (Acute) Unintentional weight loss (Acute) Swallowing problem (Acute) Abnormal laboratory test (Acute) Screening for colon cancer (Acute) Chest pain (Acute) Asthma (Chronic) Medical History (Updated 05/06/23 @ 13:49 by Chapincito Vang MD) Arthralgia Back pain, acute Bradycardia Chondromalacia patellae of left knee Chronic low back pain Colon polyps Dehydration Depression Diabetic peripheral neuropathy Diverticulosis DJD of right AC (acromioclavicular) joint Essential tremor (11/21/14) Fatigue GERD (gastroesophageal reflux disease) Headache Cervical Hip pain, left History of tobacco use HTN (hypertension) Hyperlipemia Hypomagnesemia Hypotension Hypothyroidism 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) Insect bite Internal derangement of left knee Lumbosacral neuritis Neck pain on left side Obesity Osteoarthritis of left knee Primary osteoarthritis of right hip Prolonged depression Psoriasis Radicular syndrome of lower limbs Resting tremor Right groin pain Right inguinal hernia Right rotator cuff tear Injection under fluoroscopy: 11/04/18 Status post rotator cuff repair DOS: 01/25/2019 Septic arthritis of knee Septic joint Shoulder pain, left Shoulder pain, right Trigeminy URI, acute Vertigo Vitamin B12 deficiency Surgical History (Updated 08/26/22 @ 15:42 by Rebecca Baxter RN) History of total left hip replacement (09/02/19) History of total left knee replacement (10/02/20) Hx of colonoscopy (~07/2022) Hx of total knee arthroplasty Right S/P cholecystectomy S/P inguinal hernia repair using synthetic patch (~06/09/22) and umbilical hernia S/P lumbar spine operation x2 Status post right rotator cuff repair (~01/25/19) Repair of supraspinatus, distal clavicle excision, biceps tenotomy Dr. 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 Trochanteric bursitis, left hip S/P debridement with IT band lengthenin08/12/2021 Family History Father Heart disease Brother Tremor Son Seizure Mother Osteoarthritis Social History Smoking/Tobacco Use Status: Former Tobacco Use Quit Date: 09/07/79 Pack-years: 1 Smoking risk assessment performed?: Yes Alcohol Intake: current Alcohol Intake frequency: a few times a week Alcohol type: beer Drug use: Never Substance use type: does not use Household members: children Housing: house Number of Children: 2 current occupation: Retired Current gender identity: male What type of physical activity do you participate in: independent ambulation Do you feel safe at home: Yes (lives with grandson) Do you feel safe in your relationship?: Yes Exam Const General: no acute distress Orientation: alert HENMT Head: normal to inspection Ears: external ears normal General nose exam: external nose normal Mouth: moist mucous membranes Eyes General: appearance normal, both eyes and all related structures Neck Neck: normal visual inspection Chest Chest: normal inspection of the chest Resp Effort & Inspection: normal respiratory effort and able to speak in complete sentences Auscultation: clear to auscultation bilaterally Cardio Jugular venous pressure: no JVD Rate: regular rate Heart Sounds: no murmurs Skin General skin exam: no rashes or lesions noted Neuro General: patient alert and patient oriented x3 Extrem General: normal to inspection Psych Mental Status: mental status grossly normal Course Vital Signs Vital signs: Vital Signs Temperature 37 C 05/06/23 12:04 Pulse 32 L 05/06/23 12:04 Respiratory Rate 20 05/06/23 12:04 Blood Pressure 130/77 05/06/23 12:04 Pulse Oximetry 99 05/06/23 12:04 Temperature 37 C 05/06/23 12:04 Temperature Source Oral 05/06/23 12:04 Pulse 32 L 05/06/23 12:04 Respiratory Rate 20 05/06/23 12:04 Respiratory Effort Normal, Non-Labored 05/06/23 12:18 Blood Pressure 130/77 05/06/23 12:04 Blood Pressure Position Sitting 05/06/23 12:04 Pulse Oximetry 99 05/06/23 12:04 Oxygen Delivery Method Room Air 05/06/23 12:04 Oxygen Flow Rate 0 05/06/23 12:04 Pain Level 0 05/06/23 12:04 PAWSS Have you Been Recently Intoxicated or Drunk Within the Last 30 days?: No Have you Ever Experienced Previous Episodes of Alcohol Withdrawal?: No Have you ever Experienced Withdrawal Seizures?: No Have you ever Experienced Delirium Tremens(DT)s?: No Have you ever undergone Alcohol Rehabilitation Treatment (i.e, inpt ot outpatient treatment programs)?: No Have you ever Experienced Blackouts?: No Have you ever Combined Alcohol with other Downers within the last 90 days?: No Have you ever Combined Alcohol with any other Substance of Abuse during the last 90 days?: No Positive Blood Alcohol level on Presentation? [PCS.BAL]: No Evidence of Increased Autonomic Activity (i.e. HR>120, tremor, sweating, agitation, nausea)?: No Result: 0
[2023-05-06 12:38] LABS: Abs Immature Grans 0.01 10^3/uL (0.0-0.06); Absolute Basophil Count 0.02 10^3/uL (0.0-0.2); Absolute Lymphocyte Count 0.66 10^3/uL (1.2-3.4); Absolute Monocyte Count 0.59 10^3/uL (0.1-0.8); Absolute Neutrophil Count 2.91 10^3/uL (1.2-6.7); Basophils % 0.5; Eosinophils % 4.6; HCT 43.1 % (40.0-50.0); HGB 14.1 g/dL (13.5-17.5); Immature Grans % 0.2; MCH 32.2 pg (27.0-33.0); MCHC 32.7 % (32.0-36.0); MCV 98 fL (80-95); MPV 10.4 fL (8.0-11.0); Monocytes % 13.4; Neutrophils % 66.3; Platelet Count 264 10^3/uL (130-400); RBC 4.38 10^6/uL (4.36-5.78); RDW-SD 50.8 fL; WBC 4.39 10^3/uL (4.4-10.8)
[2023-05-06 12:56] LABS: PTT Activated 26.2 sec (21.5-31.9)
--- NOTE | 2023-05-06 13:00 | RT.EKG_ITS ---
APPROVED REPORT Exam: Resting ECG Reason for Exam: bradycardia Patient Location: E HR:47 bpm ECG Measurements Heart Rate 47 AXIS NV 204 P -33 QRSd 105 QRS -17 QT 501 T 11 QTc 435 Conclusion Sinus bradycardia...rate< 60 Multiple ventricular premature complexes...V complexes w/ short R-R intervls
[2023-05-06 13:01] LABS: ALT 17 U/L (16-63); AST 11 U/L (15-37); Albumin 3.5 g/dL (3.4-5.0); Alkaline Phosphatase 63 U/L (46-116); Anion Gap 7.7 mmol/L (3-11); BUN 29 mg/dL (7-18); Bilirubin, Total 0.4 mg/dL (0.2-1.0); CO2 28.3 mmol/L (21.0-32.0); CREATININE 1.1 mg/dL (0.70-1.30); Calcium 8.9 mg/dL (8.5-10.1); Chloride 105 mmol/L (98-107); Estimated GFR 70.88 (mL/min/1.73m2); Glucose 119 mg/dL (74-106); Magnesium 1.7 mg/dL (1.8-2.4); Potassium 4.3 mmol/L (3.5-5.1); Sodium 141 mmol/L (136-145); TSH (W/Ref FT4) 0.92 uIU/mL (0.36-3.74); Total Protein 6.9 g/dL (6.4-8.2); Troponin I < 50 ng/L (<or=60)
[2023-05-06 13:49] VITALS: PULSE 49; RESP 11; O2SAT 99
[2023-05-06 13:50] VITALS: PULSE 43; RESP 21; O2SAT 98
[2023-05-06 13:51] VITALS: BP 107/83; PULSE 42; RESP 17; O2SAT 98
[2023-05-08 10:38] LABS: Lyme Ab w Rflx to Lyme Confirm Negative (Negative)
[2023-05-10 18:17] LABS: Anaplasma phagocytophilum Negative (Negative); B. miyamotoi PCR Negative (Negative); Babesia divergens/MO-1 Negative (Negative); Babesia duncani Negative (Negative); Babesia microti Negative (Negative); Ehrlichia chaffeensis Negative (Negative); Ehrlichia ewingii/canis Negative (Negative); Ehrlichia muris eauclairensis Negative (Negative)
== END 2023-05-06 14:59 | disposition home or self-care (01) ==
PROVIDERS: Emergency Provider Emergency Medicine; PCP Family Medicine
DX: R42 Dizziness and giddiness (principal); R00.1 Bradycardia, unspecified; I10 Essential (primary) hypertension; E11.9 Type 2 diabetes mellitus without complications; Z79.84 Long term (current) use of oral hypoglycemic drugs; Z79.899 Other long term (current) drug therapy; Z79.82 Long term (current) use of aspirin
CPT/HCPCS: 80053; 87798; 93005; 99285; 71045; 83735; 84443; 84484; 85025; 85610; 85730; 86618; 93010; 99284

== ENCOUNTER → 2023-05-26 07:54 | Outpatient (BNVA) | payer MEDICARE, SELFPAY | PROVIDERS: PCP Family Medicine; Referring Provider Family Medicine; Visit Provider Surgery | DX: K40.91 Unilateral inguinal hernia, without obstruction or gangrene, recurrent (principal); R00.1 Bradycardia, unspecified | CPT/HCPCS: 99213; 99214 ==

== ENCOUNTER → 2023-05-27 09:46 | Outpatient (CLI) | payer MEDICARE, OTHER, SELFPAY ==
--- NOTE | 2023-05-27 11:30 | DI.US_ITS ---
APPROVED REPORT EXAM: Comprehensive 2D, Doppler, and color-flow Echocardiogram Patient Location: Out-Patient [employer] Professor: Lacy Mcclendon RDCS (AE) Indications: Bradycardia, Lightheadedness, Sleep apnea Other Information Study Quality: Adequate Conclusion Normal left ventricular wall thickness and chamber size. Ejection fraction is 60%. Wall motion is n ormal Normal right ventricular size and systolic function Left atrium is mildly dilated. Right atrial size is normal Aortic valve is trileaflet and mildly sclerotic with trace to mild regurgitation Mitral annular calcification. Mild to moderate mitral regurgitation Normal tricuspid valve with mild regurgitation. Estimated right ventricular systolic pressure is 28 mmHg Dilated ascending aorta measuring 4 cm Wall motion Left Ventricle The left ventricle is normal size. The left ventricular systolic function is normal. The left ventric ular ejection fraction is within the normal range. There is normal left ventricular wall thickness. T here is normal LV segmental wall motion. There is no ventricular septal defect visualized. LVEF is 60 %. Right Ventricle The right ventricle is normal size. The right ventricular systolic function is normal. Atria Left atrium is mildly dilated. The right atrium size is normal. The interatrial septum is intact with no evidence for an atrial septal defect. Aortic Valve The Aortic valve is mildly sclerotic. There is no aortic valvular stenosis. Trace to mild aortic reg urgitation. Mitral Valve Moderate mitral annular calcification. No evidence of mitral valve stenosis. Mild to moderate mitral regurgitation. Tricuspid Valve The tricuspid valve is normal in structure. There is no tricuspid valve stenosis. Mild tricuspid regu rgitation. The RVSP is 28.1mmHg. Pulmonic Valve The pulmonary valve is normal in structure. There is no pulmonic valvular stenosis. There is no pulmo daja valvular regurgitation. Great Vessels The aortic root is normal in size. The ascending aorta is moderately dilated. Aortic arch is not well visualized. IVC is normal in size and collapses >50% with inspiration. Pericardium There is no pericardial effusion. 2D Dimensions IVSD d PLAX 1.24 cm M: 0.6-1.2 Ao Root d 3.63 cm M: 3.1 - 3.7 LVPW d PLAX 1.22 cm M: 0.6 - 1.2 Ao Asc Diam d 4.00 cm M: 2.6 - 3.4 LVID d PLAX 5.39 cm M: 4.2 - 5.8 LVDs 3.63 cm M: 2.5 - 4.0 LV EF Teichholz 60.5 % FS 32.64 % LV EDV (Teich) 140.6 mL LV ESV (Teich) 55.5 mL M-Mode TAPSE 2.36 cm (M/F) >1.7 Auto EF LV EDV A4C 121.2 mL LV EDV A2C 151.9 mL LV EDV BP 139.2 mL LV ESV A4C 44.4 mL LV ESV A2C 54.9 mL LV ESV BP 49.1 mL LVEF(%) A4C 63.4 % LVEF(%) A2C 63.8 % LVEF(%) BP 64.8 % LV SV A4C 76.9 ml LV SV A2C 97.0 ml LV SV BP 90.1 ml LV CO A4C 4.2 L/min LV CO A2C 5.1 L/min LV CO BP 4.7 L/min HR A4C 54.63 BPM HR A2C 52.79 BPM LV EDV Index (BP) LA Volume LA Length A4C 6.7 cm LA Length A2C 6.0 cm LA Area A4C s 26.73 cm2 LA Area A2C s 23.40 cm2 LA Vol A4C A-L 90.80 mL LA Vol A2C A-L 77.55 mL LA Vol Biplane A-L 88.6 mL LA Vol/BSA A4C A-L LA Vol/BSA A2C A-L LA Vol/BSA BP A-L 41.6 mL/m2 LA Vol A4C MOD 85.8 mL LA Vol A2C MOD 72.6 mL LA Vol BP MOD 83.0 mL RA Volume RA Area A4C 14.6 cm2 RA ESV A4C (A-L) 40.0mL RA Vol/BSA A4C A-L RA Length A4C 4.5 cm RA ESV A4C (MOD) 39.3mL LV Diastology MV E' medial 0.063 (>0.07 m/s) MV E Vmax 0.57 (0.4-1.3 m/s) MV E/E' MED 8.98 (<14) MV A Vmax 0.90 (0.4-1.3 m/s) MV E' lateral 0.050 (>0.1 m/s) E/A Ratio 0.6 MV E/E' LAT 11.39 (<14) MV E' Average 0.057 m/s MV E/E'(average) 10.04 Aortic Valve AoV Vmax 1.45 m/s LVOT Vmax 1.19 m/s AoV Peak Grad 8.4 mmHg LVOT Peak Grad 5.6 mmHg AoV Area (Vmax) 2.63 cm2 LVOT VTI 0.300 m AoV VTI 0.395 m LVOT Mean Grad 2.6 mmHg AoV Mean Sarwat. 0.98 m/s LVOT SV 96.34 mL AoV Mean Grad 4.4 mmHg LVOT Diam s 2.00 cm AoV Area (VTI) 2.44 cm2 Velocity Ratio 0.82 Mitral Valve MV DT 633 (160-240 msec) MV Vmax TIPS 0.80 m/s MV Mean Grad 0.9 (<2mmHg) MV VTI 0.325 m Pulmonary Valve PV Vmax 0.97 (0.5-1.5 m/s) RVOT Vmax 0.83 m/s PV Peak Grad 3.7 mmHg RVOT Peak Gr. 2.8 mmHg PV Mean Sarwat 0.67 m/s RVOT VTI 0.194 m PV Mean Grad 2.1 mmHg RVOT Mean Gr. 1.2 mmHg Tricuspid Valve RA Pressure 3.00 mmHg TR Vmax 2.51 m/s TV S' 0.16 m/s TR Peak Grad 25.1 mmHg RVSP (TR) 28.1 mmHg
== END ==
PROVIDERS: PCP Family Medicine; Visit Provider Family Medicine
DX: G47.30 Sleep apnea, unspecified (principal)
CPT/HCPCS: 93306

== ENCOUNTER 2023-05-29 07:56 | Outpatient (CLI) | payer MEDICARE, OTHER, SELFPAY | END 2023-05-29 07:57 | disposition home or self-care (01) | LOC: DI.CARD 07:57 | PROVIDERS: PCP Family Medicine; Visit Provider Internal Medicine Cardiovascular Disease | DX: R00.1 Bradycardia, unspecified (principal) | CPT/HCPCS: 93010 ==

== ENCOUNTER 2023-06-02 13:57 | Outpatient (CLI) | payer MEDICARE, OTHER, SELFPAY | END 2023-06-02 13:58 | disposition home or self-care (01) | PROVIDERS: PCP Family Medicine; Visit Provider Family Medicine | DX: R00.1 Bradycardia, unspecified (principal) | CPT/HCPCS: 93270 ==

== ENCOUNTER 2023-06-23 06:53 | Outpatient (CLI) | payer MEDICARE, OTHER, SELFPAY ==
--- NOTE | 2023-06-23 08:28 | W.CARDEVENT ---
Date of service: 06/23/23 Time of Service: 08:28 Cardiac Event Recorder Referring Provider:: Beatriz Cotton Indications:: Dizziness and bradycardia Cardiac Event Note: This is a cardiac event monitor. Patient was monitored for 9 days and 12 hours Rhythm throughout was sinus. Average heart rate was 64. Minimum was 48, maximum 133 There was no atrial fibrillation, no SVT, no high-grade AV block, no pauses greater than 3 seconds There were several brief runs of nonsustained ventricular tachycardia. Longest was 7 beats in duration No patient symptoms were reported
== END 2023-06-23 06:54 | disposition home or self-care (01) ==
LOC: CARDOPNVT 06:53
PROVIDERS: PCP Family Medicine; Visit Provider Internal Medicine Cardiovascular Disease
DX: R00.1 Bradycardia, unspecified (principal); R42 Dizziness and giddiness
CPT/HCPCS: 93248

== ENCOUNTER 2023-07-06 08:26 | Outpatient (CLI) | payer MEDICARE, OTHER, SELFPAY ==
--- NOTE | 2023-07-06 08:15 | RT.EKG_ITS ---
APPROVED REPORT Exam: Resting ECG Reason for Exam: bradycardia Patient Location: O HR:60 bpm ECG Measurements Heart Rate 60 AXIS [place] 165 P -47 QRSd 116 QRS 18 QT 446 T 23 QTc 446 Conclusion Sinus rhythm Borderline low voltage, extremity leads...all extremity leads <0.6mV
== END 2023-07-06 08:27 | disposition home or self-care (01) ==
LOC: DI.CARD 08:27
PROVIDERS: PCP Family Medicine; Visit Provider Internal Medicine Cardiovascular Disease
DX: R00.1 Bradycardia, unspecified (principal)
CPT/HCPCS: 93010

== ENCOUNTER → 2023-07-06 10:57 | Outpatient (BNVA) | payer MEDICARE, OTHER, SELFPAY | PROVIDERS: PCP Family Medicine; Referring Provider Family Medicine; Visit Provider Internal Medicine Cardiovascular Disease | DX: K40.91 Unilateral inguinal hernia, without obstruction or gangrene, recurrent (principal); R00.1 Bradycardia, unspecified | CPT/HCPCS: 93005; 99213 ==

== ENCOUNTER → 2023-07-07 07:57 | Outpatient (BNVA) | payer MEDICARE, OTHER, SELFPAY | PROVIDERS: PCP Family Medicine; Referring Provider Family Medicine; Visit Provider Surgery | DX: K40.91 Unilateral inguinal hernia, without obstruction or gangrene, recurrent (principal) ==

== ENCOUNTER 2023-07-08 07:24 | Day surgery (SDC) | payer MEDICARE, OTHER, SELFPAY ==
[2023-07-08] VITALS (8 sets, daily range): BP systolic 126–155; BP diastolic 59–72; PULSE 46–58; RESP 12–18; TEMP 36.4–36.6; O2SAT 95–100; BMI 29.0
[2023-07-08] MEDS: Gabapentin 300 MG CAP 600 MG PO (08:07)
[2023-07-08] MEDS: Acetaminophen 500 MG TAB 1000 MG PO (08:07)
[2023-07-08] MEDS: Celecoxib 200 MG CAP PO (08:08)
[2023-07-08] MEDS: Lactated Ringers 1,000 ML 80 ML IV (08:09)
--- NOTE | 2023-07-08 08:20 | W.ANESPRE ---
General Info Date of Service Date Performed: 07/08/23 Height: 5 ft 11 in Weight: 94.6 kg Body Mass Index (BMI): 29.0 Surgical Procedure: Operation Date: 07/08/23 09:40 Proposed Procedure Side Surgeon p Herniorrhaphy Inguinal w/Mesh Right Dora Diehl MD Meds Allergies and Home Medications Allergies Allergy/AdvReac Type Severity Reaction Status Date / Time ceftriaxone Allergy Severe ANAPHYLAXIS Verified 07/07/23 12:02 Cephalosporins Allergy Severe Anaphylaxsi Verified 07/07/23 12:02 s ciprofloxacin AdvReac Dizziness/L Verified 07/07/23 12:02 ightheade fentanyl AdvReac Agitation, Verified 07/07/23 12:02 confusion meperidine HCl [From Demerol] AdvReac vomiting Verified 07/07/23 12:02 morphine AdvReac vomiting Verified 07/07/23 12:02 Home Medication Medication Instructions Recorded meclizine 25 mg tablet 25 mg PO Q6H PRN 06/28/20 aspirin 81 mg tablet,delayed 81 mg PO DAILY 01/02/22 release diphenhydramine 25 2 tab PO Q4H PRN 07/21/22 mg-acetaminophen 500 mg tablet (Tylenol PM Extra Strength) simvastatin 10 mg tablet 10 mg PO DAILY 05/06/23 amoxicillin 500 mg tablet 2,000 mg PO DAILY PRN 05/22/23 levothyroxine 150 mcg tablet 150 mcg PO DAILY 05/22/23 omeprazole 40 mg capsule,delayed 40 mg PO DAILY 05/22/23 release albuterol sulfate 90 mcg/actuation 2 puff inhalation Q6H PRN 05/25/23 aerosol inhaler (ProAir HFA) cyanocobalamin (vitamin B-12) 1,000 mcg PO DAILY 05/25/23 1,000 mcg capsule fluoxetine 40 mg capsule 40 mg PO DAILY 05/25/23 vitamin E (dl, acetate) 180 mg 180 mg PO DAILY 07/07/23 (400 unit) capsule Current Visit Medications: Current Medications Generic Name Dose Route Start Last Admin Trade Name Freq PRN Reason Stop Dose Admin Acetaminophen 1,000 mg 07/08/23 06:00 07/08/23 08:07 Acetaminophen 500 Mg Tab PO 08/06/23 23:59 1,000 mg PREOP BRANDON Administration Celecoxib 200 mg 07/08/23 06:00 07/08/23 08:08 Celecoxib 200 Mg Cap PO 08/06/23 23:59 200 mg PREOP BRANDON Administration Gabapentin 600 mg 07/08/23 06:00 07/08/23 08:07 Gabapentin 300 Mg Cap PO 08/06/23 23:59 600 mg PREOP BRANDON Administration Ringer's Solution 1,000 mls @ 80 mls/hr 07/08/23 06:00 07/08/23 08:09 IV 08/06/23 23:59 80 mls/hr INFUSION BRANDON Administration Clindamycin Phosphate/Dextrose 900 mg in 50 mls @ 50 mls/hr 07/08/23 06:00 Cleocin In D5w IVPB 07/08/23 23:59 PREOP BRANDON IV Miscellaneous Supplies 1 each 07/08/23 06:00 Iv Access IV 08/06/23 23:59 DIRECTED BRANDON Sodium Chloride 0 ml 07/08/23 06:00 Normal Saline Flush 10 Ml Syr IV 08/06/23 23:59 PRN PRN Sodium Chloride 0 ml 07/08/23 06:00 Normal Saline 10 Ml Vial IJ 08/06/23 23:59 DIRECTED PRN Sterile Water 0 ml 07/08/23 06:00 Water,Injection,Sterile 10 Ml Vial IJ 08/06/23 23:59 DIRECTED PRN PFSH Active Problems Active Problems: Problem Status Onset Code Recurrent simple right inguinal hernia K40.91 Abdominal pain, right lower quadrant R10.31 Atopic dermatitis L20.9 Contact dermatitis L25.9 Lightheadedness R42 Sensorineural hearing loss H90.5 Tubular adenoma of colon D12.6 Umbilical hernia K42.9 Right inguinal hernia K40.90 Hypomagnesemia E83.42 Hypoglycemia E16.2 Dysphagia R13.10 IDDM (insulin dependent diabetes mellitus) 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 Cervical lymphadenopathy R59.0 Tonsillar mass J35.8 Unintentional weight loss R63.4 Swallowing problem R13.10 Abnormal laboratory test R89.9 Screening for colon cancer Z12.11 Chest pain R07.9 Sleep apnea G47.30 Asthma J45.909 Medical History Medical History (Updated 07/07/23 @ 12:00 by Van Aguilar) Anemia Right groin pain Hypomagnesemia Dehydration Osteoarthritis of left knee Internal derangement of left knee Chondromalacia patellae of left knee Obesity Lumbosacral neuritis Diverticulosis Colon polyps Prolonged depression Trigeminy History of tobacco use Shoulder pain, left Resting tremor HTN (hypertension) Per pt. states not at this present time Back pain, acute GERD (gastroesophageal reflux disease) Septic arthritis of knee Septic joint Hypotension Headache Cervical Vertigo Bradycardia Insect bite Fatigue Shoulder pain, right Hip pain, left Neck pain on left side Vitamin B12 deficiency Arthralgia Radicular syndrome of lower limbs URI, acute Psoriasis Primary osteoarthritis of right hip Chronic low back pain Hypothyroidism Diabetic peripheral neuropathy DJD of right AC (acromioclavicular) joint Right rotator cuff tear Injection under fluoroscopy: 11/04/18 Status post rotator cuff repair DOS: 01/25/2019 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 Surgical History Surgical History S/P inguinal hernia repair using synthetic patch (~06/09/22) and umbilical hernia History of total left hip replacement (09/02/19) Trochanteric bursitis, left hip S/P debridement with IT band lengthenin08/12/2021 History of total left knee replacement (10/02/20) Hx of colonoscopy (~07/2022) Hx of total knee arthroplasty Right Status post right rotator cuff repair (~01/25/19) Repair of supraspinatus, distal clavicle excision, biceps tenotomy Dr. 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 Tobacco Smoking/Tobacco Use Status: Former Tobacco Use Alcohol Alcohol Intake: current Alcohol intake frequency: a few times a week Alcohol type: beer Substance Use Substance use: Never Substance use type: does not use Vital Signs and Lab Results Vital Signs Most Recent Vital Signs in EMR: Most Recent Vital Signs Temp Pulse Resp BP Pulse Ox 36.5 C 58 L 16 143/70 H 96 07/08/23 07:41 07/08/23 07:41 07/08/23 07:41 07/08/23 07:41 07/08/23 07:41 Lab Results Blood Type / Crossmatch: No Data to Display Complete Blood Count: No Data to Display Complete Metabolic Panel: No Data to Display Liver Function Panel: No Data to Display Coagulation Panel: No Data to Display Cardiac Panel: No Data to Display Arterial Blood Gas: No Data to Display Venous Blood Gas: No Data to Display Pancreas Panel: No Data to Display Thyroid Panel: No Data to Display Infectious Disease: No Data to Display Blood Cultures: No Data to Display Toxicology Panel: No Data to Display Imaging and Studies Imaging and Studies Study information below may be from another EMR and interpreted by another provider. Please see original notes in EMR for more complete details. EKG Summary: 08/26: sinus rhythm, prob LAE. Stress Test Summary: 08/26: max HR 46% for predicted age. non-diagnostic. LVEF 50%. Echocardiogram Summary: 08/26: LVEF 60%, trace/mild TR. mild MR. 12/23: no prefusion defects noted. LVEF 43%. Anesthesia Assessment and Plan Anesthesia History Personal History: No History of Anesthesia Complications Family History: No Family History of Anesthesia Complications Exercise Tolerance Exercise Tolerance: Metabolic Equivalents>4 Pertinent Negatives Pertinent Negatives: No Symptoms of GERD (No GERD symptoms today), No Major Cardiovascular Symptoms or Complaints and No Major Pulmonary Symptoms or Complaints Cardiac & Pulmonary Exam Cardiac Exam: Normal S1/S2 Heart Sounds Pulmonary Exam: Clear Bilateral Breath Sounds Implantable Cardiac Device Does patient have a Pacemaker or an ICD?: No Airway Exam Known Difficult Airway: No Mallampati Class: 4 Mouth Opening: Normal (> 3cm) Thyromental Distance: Greater than 3 cm Neck Range of Motion: Full ROM Neck Circumference: Thick Teeth Condition: Generalized Poor Dentition Airway Comments: #12 broken #11 chipped ASA Classification ASA Score: ASA 3 Emergency Case?: No NPO Status NPO Status: NPO Clears >2 hours, Solids >8 hours Anesthesia Plan Resuscitation Status: Full Code Anesthesia Technique: General Anesthesia Airway Planned: LMA Pain Management: Surgeon and patient request nerve block Monitors Used: Standard Monitors Preoperative Comments:: S/P neck radiation on right, plan for LMA with ETT backup, limited right-sided mobility, but no difficulty swallowing
--- NOTE | 2023-07-08 08:59 | PDOC.DSDIS_ITS ---
Date of service: 07/08/23 Time of Service: 12:58 Discharge Plan Disposition Patient Disposition: Home Condition: Stable Discharge Details Reason For Visit: [facility] Attending Provider: Dora Diehl Primary Care Provider: Beatriz Cotton V Home Meds and New Rx's Prescriptions: Continued vitamin E (dl, acetate) 180 mg (400 unit) capsule 180 mg PO DAILY meclizine 25 mg Tablet 25 mg PO Q6H PRN Patient Comments: Only for dentist fluoxetine 40 mg capsule 40 mg PO DAILY cyanocobalamin (vitamin B-12) 1,000 mcg capsule 1,000 mcg PO DAILY albuterol sulfate [ProAir HFA] 90 mcg/actuation HFA aerosol inhaler 2 puff inhalation Q6H PRN omeprazole 40 mg capsule,delayed release(DR/EC) 40 mg PO DAILY levothyroxine 150 mcg tablet 150 mcg PO DAILY amoxicillin 500 mg tablet 2,000 mg PO DAILY PRN Rx Instructions: take 4 tablets one hour prior to dental procedure diphenhydramine-acetaminophen [Tylenol PM Extra Strength] 25-500 mg Tablet 2 tab PO Q4H PRN Rx Instructions: administer while awake aspirin 81 mg tablet,delayed release (DR/EC) 81 mg PO DAILY simvastatin 10 mg tablet 10 mg PO DAILY Discharge Instructions Additional Instructions: Activity at Home after surgery: 1. Make sure you walk outside at least 4 times per day 2. You should be able to climb a flight of stairs 3. No driving while in pain or taking pain medications 4. No strenuous activity or heavy lifting for 4 weeks (open surgery) Diet, Nutrition, & wound healin. Avoid alcohol until after you are recovered from your surgery 2. Make sure to eat plenty of lean protein (meat, fish, eggs, cottage cheese, beans) 3. Eat a variety of fruits and vegetables. Eat plenty of high fiber foods to avoid constipation. 4. Drink plenty of liquids to stay hydrated and avoid constipation Pain Medications: 1. Tylenol 650mg every 6 hours as needed and Ibuprofen 600 mg every 6 hours as needed. You may alternate between the 2 medications every 3 hours 2. If a narcotic has been prescribed take as directed only for breakthrough pain For Constipation: 1. Take Milk of Magnesia or MiraLax as needed for constipation Other: 1. You may shower daily. Do not scrub the incisions 2. Do not soak the incisions for 1 week 3. You may alternate ice and heat as needed for pain and swelling Wound Care: 1. Keep the incisions clean and dry Please call our office if you develop: 1. Fevers >101.5 2. Nausea or Vomiting 3. Worsening pain 4. Redness and thick discharge from the wounds If after hours please call the Hospital at and ask to speak to the on-call surgeon Referrals: Dora Diehl MD [ [facility]FF [facility]YSICIAN] - 07/21/23 9:00 am Activity:: see above Shower/Bathe:: 24 hours Diet:: As Tolerated Discharge Orders Discharge Orders: Discharge Order (Routine); Ordered 07/08/23 Ordered By: Dora Diehl DS: Diagnosis Discharge Diagnosis (1) Recurrent simple right inguinal hernia: Status: Acute Asessment and Plan: The patient is doing well post-op from his [facility] repair surgery.? He is having no nausea or vomiting. He is tolerating liquids and a snack. The pt is not having any chest pain or SOB.? He is having 7/10 pain. He doesn't want any narcotics. ?I have ordered some Toradol. Patient doesnt want a Rx for narcotics. ?HEENT:? no eye pain/drainage/redness/swelling. Mild sore throat ?Cardio- NSR, no chest pain, BP stable- see VS record ?Pulm: no sob or productive cough. No hemoptysis ?Incision- dressing is c/d/i w/ no excessive bleeding or drainage ?I discussed with the patient the findings at the time of surgery and the patient?s progress. ?We reviewed expectations at home; what the patient could expect for recovery time, and in the post-operative period.? We discussed the importance of walking to avoid blood clots and pneumonia.? We discussed and reviewed the patient's post-operative wound care and dressing needs.?? We reviewed their step-painting pain management plan, Rx called to the pharmacy of their choice.? We reviewed activity and limitations-see discharge instructions. We reviewed warning signs, and when to seek medical attention- see d/c instructions.?? Patient was given a postoperative follow-up appointment. Patient verbalized understanding of their postoperative instructions, how do to take care of themselves and their incision, and the pain management plan. Please see discharge instructions.?
--- NOTE | 2023-07-08 09:05 | ROE_ITS ---
Date of service: 07/08/23 Time of Service: 11:40 Operative Note Operative Note DATE OF PROCEDURE: 07/08/23 PRE-OP DIAGNOSIS: recurrent RIH POST-OP DIAGNOSIS: same PROCEDURE: RIH repair with mesh SURGEON: Dora Diehl MOTORCYCLE RIDING INSTRUCTOR: Tish Schulz Refer to Anesthesia Record Indications: 09:10 -Patient was seen in [facility] prior to his procedure. The right inguinal area was marked. I reviewed the consent again with The patient. We reviewed the planned procedure as well as the possible complications. He didnt have any questions, understood the possible complications and wished to proceed with RIH repair with mesh. Gal is a pleasant 72-year-old gentleman with a recurrent right inguinal hernia. We discussed the repair of the recurrent right inguinal hernia. I told him that I would try to not remove the old mesh as this can cause a lot of trauma and damage to the tissues. I will try to repair the recurrent hernia with either a plug or leg a second piece of mesh on top of the old one. We discussed the procedure in detail using a pamphlet. We also reviewed the risks, benefits and complications. Because this will be a redo surgery he is at increased risk of injury to the testicular structures, injury to the nerve as well as skin infection. He does have an allergy to cephalosporins so I will order some clindamycin prior to surgery. After the conversation the patient had a good understanding of the procedure as well as the potential risks. Risks, benefits and complications have been reviewed. Complications include but are not limited to bleeding, infection, injury to vas, vessels and nerves, injury to bowel, recurrence (3-5%), chronic pain and adverse reaction to medications. Questions were entertained and answered to their satisfaction and they wished to proceed. Findings: large hernia sac. Mesh was balled up at the pubic symphasis Procedure Description: After informed concent was obtained the patient was taken to the operating room and placed in a supine position. Monitors and SCDs were applied and a timeout was done. The patient's name, date of , procedure type, procedure site, allergies to medications, preoperative antibiotic, and DVT prophylaxis were all reviewed. Fire risk was assessed. Next anesthesia did a tap block on the right side under ultrasound guidance. Please see their separate dictation. Once anesthesia was done the abdomen was prepped and draped in a sterile surgical fashion. 0.5% Marcaine mixed with exparel was injected into the dermis in the right lower quadrant. An incision was made with a 10 blade in the right lower quadrant through the old incision. Dissection was done with cautery through the subcutaneous tissues and Jayshree's fascia and scar tissue down to the external oblique fascia. Due to the prior surgery the external oblique fascia was difficult to find. The external ring was eventually identified and the external oblique fascia was opened sharply. The cut fascia was grasped with hemostats. I then was able to identify a large Hernia sac. I carefully dissected away the hernia sac from scar tissue and cremasteric muscle. I was then able to identify the vas and its vessels. A Rebekah drain was placed around them. The mesh was identified. It was balled up where the external ring should be. The edge was still attached to the pubic symphasis. The mesh was carefully removed from the testicular structures. It took 45 minutes to remove the mesh. Once the mesh was removed I was able to get a better view at the inguinal canal. The patient had a large direct and indirect hernia. An XL plug was placed into the indirect defect and secured with 3-0 proline. A flat piece of mesh was then attached to the lacunar ligament using a 2-0 Prolene double armed suture. The m esh was secured laterally and medially with a 2-0 Prolene, with a running suture. The tails of the mesh were wrapped around the cord structures effectively cinching down the internal ring. Once the mesh was secured the tissues were irrigated with some normal saline. No bleeding was identified. The external oblique fascia was reapproximated using 2-0 Vicryl running suture. The Jayshree's fascia was reapproximated using interrupted 3-0 Vicryl. The dermis was reapproximated with a running 4-0 Vicryl. The skin was cleaned and dried and skin affix was applied. The patient was woken up and taken back to recovery in stable condition. There were no immediate complications. Sponge, instrument and needle counts were correct at the end of the case x2.
[2023-07-08] MEDS: CLINDAMYCIN 900 MG/50 ML BAG 50 MG IVPB (09:39)
[2023-07-08] MEDS: Bupivacaine 0.25% Pres-Free 30 ML VIAL (10:05)
--- NOTE | 2023-07-08 10:25 | W.ANESNERVE ---
Nerve Block Single Injection Procedure Date and Time Date Performed: 07/08/23 Procedure Start: 09:48 Location Where Procedure Performed Procedure Location: Operating Room Procedure Stop: 09:53 Reason Performed: Postoperative Analgesia Requesting Provider: Dora Diehl Timeout Performed Timeout Performed: Yes Monitoring Used ECG, Blood Pressure, SpO2, ETCO2 and See EMR for corresponding vital signs Sterility Sterility: Hand Hygiene, Surgical Cap, Surgical Mask, Sterile Gloves and Chlorhexidine Sedation Given During Procedure Sedation Given (Indicate Dose Given): No Sedation given Patient Mental Status Patient Mental Status: Performed under general anesthesia Nerve Block 1st Nerve Block: Laterality: Right Block Type: TAP Unilateral Ultrasound Image Saved?: Yes Needle / Catheter Used: 100mm SonoPlex II Local Anesthetic Bolus (Indicate Dose Given): None, Injected in 3-5ml increments after negative blood aspiration, Bupivacaine 0.25% Dose:: 15mL and Exparel Dose:: 10mL Additives (Indicate Dose Given): None Ultrasound: Sterile probe cover and gel used Nerve Stimulator: Not Used Paresthesia: None Procedure Tolerated: No Complications Procedure Outcome: Successful Performed By: Carolynn Melvin
[2023-07-08] MEDS: Ketorolac 30 MG/ML VIAL IVP (13:20)
--- NOTE | 2023-07-09 10:17 | W.ANESPOSTOP ---
Postoperative Evaluation Date, Time and Location Date Performed: 07/08/23 Time Performed: 12:20 Patient Location: PACU Vital Signs Most Recent Imported Vital Signs: Most Recent Vital Signs Temp Pulse Resp BP Pulse Ox 36.6 C 50 L 16 155/72 H 95 07/08/23 13:24 07/08/23 13:24 07/08/23 13:24 07/08/23 13:24 07/08/23 13:24 Pain Score Most Recent Pain Score: Most Recent Pain Score Pain Level 7 07/08/23 13:24 Assessment Mental Status: Awake (Alert & Oriented to Patient Baseline) Airway and Respiratory Function: Patent airway with normal (patient baseline) respiratory exam Cardiovascular Function: Hemodynamically Stable Hydration Status: Adequately Hydrated Nausea & Vomiting: No Nausea or Vomiting Pain: Pain is tolerable per patient Peripheral Nerve Block: Patient did not receive a nerve block
== END 2023-07-08 14:05 | disposition home or self-care (01) ==
PROVIDERS: PCP Family Medicine; Visit Provider Surgery
PROC: (CPT 49520; principal; 2023-07-08 09:30)
DX: K40.91 Unilateral inguinal hernia, without obstruction or gangrene, recurrent (principal); E11.9 Type 2 diabetes mellitus without complications; Z79.4 Long term (current) use of insulin; J45.909 Unspecified asthma, uncomplicated; I10 Essential (primary) hypertension; K21.9 Gastro-esophageal reflux disease without esophagitis
CPT/HCPCS: 49520; 76942; C1781; J1100; J1885; J2001; J2250; J2405; J2704

== ENCOUNTER → 2023-07-21 08:51 | Outpatient (BNVA) | payer MEDICARE, OTHER, SELFPAY | PROVIDERS: PCP Family Medicine; Referring Provider Family Medicine; Visit Provider Surgery | DX: Z48.817 Encounter for surgical aftercare following surgery on the skin and subcutaneous tissue (principal); S30.1XXD Contusion of abdominal wall, subsequent encounter; X58.XXXD Exposure to other specified factors, subsequent encounter; Z87.19 Personal history of other diseases of the digestive system ==

== ENCOUNTER → 2023-08-17 08:44 | Outpatient (BNVA) | payer MEDICARE, OTHER, SELFPAY | PROVIDERS: PCP Family Medicine; Referring Provider Family Medicine; Visit Provider Surgery | DX: Z48.817 Encounter for surgical aftercare following surgery on the skin and subcutaneous tissue (principal) ==

== ENCOUNTER 2023-10-21 10:47 | Outpatient (CLI) | payer MEDICARE, OTHER, SELFPAY ==
[2023-10-21 10:54] LABS: TSH 2.03 uIU/mL (0.36-3.74)
== END 2023-10-21 10:48 | disposition home or self-care (01) ==
LOC: LBO 10:47
PROVIDERS: PCP Family Medicine; Visit Provider Preventive Medicine Undersea and Hyperbaric Medicine
DX: E03.8 Other specified hypothyroidism (principal)
CPT/HCPCS: 36415; 84443

== ENCOUNTER 2023-11-06 20:15 | Outpatient (REF) | payer MEDICARE, OTHER, SELFPAY ==
[2023-11-06 15:37] LABS: HCT 45.1 % (40.0-50.0); HGB 15.1 g/dL (13.5-17.5); MCH 31.6 pg (27.0-33.0); MCHC 33.5 % (32.0-36.0); MCV 94 fL (80-95); MPV 10.3 fL (8.0-11.0); Platelet Count 319 10^3/uL (130-400); RBC 4.78 10^6/uL (4.36-5.78); RDW 12.8 % (11.8-14.1); RDW-SD 44.4 fL; WBC 4.17 10^3/uL (4.4-10.8)
[2023-11-06 15:54] LABS: ALT 19 U/L (16-63); AST 17 U/L (15-37); Albumin 3.7 g/dL (3.4-5.0); Alkaline Phosphatase 78 U/L (46-116); Anion Gap 9.5 mmol/L (3-11); BUN 28 mg/dL (7-18); Bilirubin, Total 0.3 mg/dL (0.2-1.0); CO2 26.5 mmol/L (21.0-32.0); CREATININE 1.1 mg/dL (0.70-1.30); Calcium 9.2 mg/dL (8.5-10.1); Calculated LDL 73 mg/dL (<100); Chloride 105 mmol/L (98-107); Cholesterol 152 mg/dL (<200); Estimated GFR 70.44 (mL/min/1.73m2); Glucose 141 mg/dL (74-106); HDL Cholesterol 42 mg/dL (40-60); Potassium 4.2 mmol/L (3.5-5.1); Sodium 141 mmol/L (136-145); Total Protein 7.4 g/dL (6.4-8.2); Triglyceride 185 mg/dL (<150)
[2023-11-06 15:56] LABS: Hemoglobin A1C 6.5 % (<5.7)
== END 2023-11-06 20:16 | disposition home or self-care (01) ==
LOC: NCHCN 20:15
PROVIDERS: PCP Family Medicine; Referring Provider Family Medicine; Visit Provider Family Medicine
DX: I10 Essential (primary) hypertension (principal); E11.9 Type 2 diabetes mellitus without complications; E03.9 Hypothyroidism, unspecified
CPT/HCPCS: 80053; 80061; 85027; 83036

== ENCOUNTER → 2024-01-14 00:32 | Outpatient (CLI) | payer MEDICARE, SELFPAY ==
--- NOTE | 2024-01-14 | DI.MRI_ITS ---
Exam(s) MR ANGIO BRAIN WO CLINICAL HISTORY: R42 Dizziness and giddiness. TECHNIQUE: 3D [id number] study was performed without contrast. COMPARISON: Brain MRI of the same day FINDINGS: Carotid Arteries: Petrous: Normal. Cavernous: Normal. Cerebral: Normal. Middle Cerebral Arteries: Right: No aneurysm or significant stenosis. Left: No aneurysm or significant stenosis. Anterior Cerebral Arteries: Right: No aneurysm or significant stenosis. Left: No aneurysm or significant stenosis. Posterior cerebral arteries: Right: No aneurysm or significant stenosis Left: No aneurysm or significant stenosis Vertebral Arteries: Right: No aneurysm or significant stenosis. No dissection. Left: No aneurysm or significant stenosis. No dissection.. Basilar Artery: No aneurysm or significant stenosis. Small Vessels: No evidence of beading. IMPRESSION: Normal MRA examination of the [place]. DATA REPOSITORY:
--- NOTE | 2024-01-14 | DI.MRI_ITS ---
Exam(s) MR BRAIN WO/W EXAM: MR BRAIN WO/W CLINICAL HISTORY: R42 Dizziness and giddiness TECHNIQUE: Multiplanar multisequence MRI of the brain was performed. CONTRAST MATERIAL: IV Contrast: 20 mL of Dotarem contrast administered. COMPARISON: CT CT HEAD WO from 01/15/2022 FINDINGS: VENTRICLES AND EXTRA AXIAL SPACES: Normal in size and morphology for the patient's age. HEMORRHAGE: There are multiple black dots seen on the gradient images in the thalami bilaterally. CEREBRAL PARENCHYMA: No focus of restricted diffusion to suggest acute infarct. No space-occupying le tyrese identified. Extensive hyperintense signal seen in the white matter on the FLAIR and T2 weighted images. MIDLINE SHIFT: None. BRAINSTEM/CEREBELLUM: Normal. CALVARIUM: Normal. ENHANCEMENT: No suspicious enhancement identified. VISUALIZED PARANASAL SINUSES/MASTOIDS: Clear. PITUITARY GLAND: Unremarkable. No evidence of a sellar or suprasellar mass. No evidence of a hypotha lamic mass. OTHER FINDINGS: IMPRESSION: 1. No evidence of an intracranial mass, enhancing lesion or acute infarct. 2. Cerebral atrophy and extensive chronic microvascular ischemic disease. 3. Multiple black dots seen particularly in the thalami bilaterally. Differential considerations inc lude cerebral amyloid disease, ischemic or a hypertensive microhemorrhages, vascular malformations am carlito other causes. DATA REPOSITORY:
[2024-01-14] MEDS: Normal Saline Flush 10 ML SYR IVP (13:31)
[2024-01-14] MEDS: Gadoterate meglumine 20 ML SYRINGE IVP (13:32)
== END ==
PROVIDERS: PCP Family Medicine; Visit Provider Family Medicine
DX: I67.82 Cerebral ischemia (principal)
CPT/HCPCS: 70544; 70553

== ENCOUNTER 2024-02-16 17:46 | Outpatient (REF) | payer MEDICARE, SELFPAY | END 2024-02-16 17:47 | disposition home or self-care (01) | LOC: NCHCN 17:46 | PROVIDERS: PCP Family Medicine; Visit Provider Family Medicine | DX: R31.9 Hematuria, unspecified (principal) | CPT/HCPCS: 87086 ==

== ENCOUNTER 2024-02-18 15:14 | Outpatient (REF) | payer MEDICARE, OTHER, SELFPAY ==
[2024-02-18 15:01] LABS: Abs Immature Grans 0.01 10^3/uL (0.0-0.06); Absolute Basophil Count 0.01 10^3/uL (0.0-0.2); Absolute Eosinophil Count 0.09 10^3/uL (0.0-0.7); Absolute Lymphocyte Count 0.53 10^3/uL (1.2-3.4); Absolute Monocyte Count 0.31 10^3/uL (0.1-0.8); Basophils % 0.3 %; Eosinophils % 2.3 %; HCT 45.7 % (40.0-50.0); Immature Grans % 0.3 %; Lymphocytes % 13.3 %; MCH 31.4 pg (27.0-33.0); MCHC 32.8 % (32.0-36.0); MCV 96 fL (80-95); MPV 10.4 fL (8.0-11.0); Monocytes % 7.8 %; Platelet Count 301 10^3/uL (130-400); RBC 4.78 10^6/uL (4.36-5.78); RDW 13.2 % (11.8-14.1); RDW-SD 46.6 fL
[2024-02-18 15:14] LABS: Absolute Neutrophil Count 3.04 10^3/uL (1.2-6.7)
[2024-02-18 15:19] LABS: Anion Gap 7.3 mmol/L (3-11); BUN 24 mg/dL (7-18); CO2 29.7 mmol/L (21.0-32.0); CREATININE 1.1 mg/dL (0.70-1.30); Calcium 9.4 mg/dL (8.5-10.1); Chloride 105 mmol/L (98-107); Estimated GFR 70.44 (mL/min/1.73m2); Glucose 175 mg/dL (74-106); Potassium 4.2 mmol/L (3.5-5.1); Sodium 142 mmol/L (136-145)
[2024-02-19 13:23] LABS: Hemoglobin A1C 6.6 % (<5.7)
== END 2024-02-18 15:15 | disposition home or self-care (01) ==
LOC: NCHCN 15:14
PROVIDERS: PCP Family Medicine; Visit Provider Family Medicine
DX: E11.9 Type 2 diabetes mellitus without complications (principal); R31.9 Hematuria, unspecified
CPT/HCPCS: 80048; 83036; 85025

== ENCOUNTER → 2024-02-24 02:26 | Outpatient (CLI) | payer MEDICARE, SELFPAY ==
--- NOTE | 2024-02-24 | DI.US_ITS ---
Exam(s) US RENAL EXAM: US RENAL CLINICAL HISTORY: HEMATURIA R31.9. TECHNIQUE: Boland scale, color and spectral Doppler were used. COMPARISON: CT CT ABDOMEN PELVIS W from 06/09/2022 FINDINGS: Right kidney: 9.2cm Echogenicity: Normal Hydronephrosis: No Cyst or mass: No Nephrolithiasis: No Left kidney: 10.5cm Echogenicity: Normal Hydronephrosis: No Cyst or mass: 2.8 centimeter simple cyst lower pole. Nephrolithiasis: No Bladder:Normal. Prevoid vol:130 cc Postvoid vol:0 cc Prostate volume 15 IMPRESSION: No evidence of hydronephrosis or calculus. Incidental cyst left kidney. DATA REPOSITORY:
== END ==
PROVIDERS: PCP Family Medicine; Visit Provider Family Medicine
DX: R31.9 Hematuria, unspecified (principal); N28.1 Cyst of kidney, acquired
CPT/HCPCS: 76770

== ENCOUNTER → 2024-04-05 14:48 | Outpatient (BNVA) | payer MEDICARE, SELFPAY | PROVIDERS: PCP Family Medicine; Referring Provider Family Medicine; Visit Provider Nurse Practitioner Gerontology | DX: R31.29 Other microscopic hematuria (principal); Z87.442 Personal history of urinary calculi | CPT/HCPCS: 81003; 99214 ==

== ENCOUNTER 2024-04-05 15:31 | Outpatient (REF) | payer MEDICARE, SELFPAY ==
[2024-04-05 16:54] LABS: Bilirubin Negative (Negative); Blood Large (Negative); Clarity Cloudy (Clear); Glucose Negative (Negative); Ketones Negative (Negative); Leukocyte Esterase Negative (Negative); Nitrite Negative (Negative); Specific Gravity 1.025 (1.005-1.025); Urobilinogen 0.2 mg/dL (Up to 0.2); pH 5.5 (5-8)
[2024-04-05 17:06] LABS: Epithelial Cells Rare HPF (Negative); Other Cells Few Yeast (Negative); RBC >50 HPF (0-2); WBC 0-2 HPF (0-5)
[2024-04-05 17:07] LABS: Bacteria Negative HPF (Negative); C & S Indicated? No; Casts Negative LPF (Negative); Crystals Negative HPF (Negative); Mucus Negative (Negative)
== END 2024-04-05 15:32 | disposition home or self-care (01) ==
LOC: LBN 15:31
PROVIDERS: PCP Family Medicine; Visit Provider Nurse Practitioner Gerontology
DX: R31.29 Other microscopic hematuria (principal)
CPT/HCPCS: 81003; 81015

== ENCOUNTER 2024-04-18 07:04 | Day surgery (SDC) | payer MEDICARE, SELFPAY ==
[2024-04-18] VITALS (11 sets, daily range): BP systolic 131–174; BP diastolic 68–77; PULSE 55–63; RESP 16–26; TEMP 36.5–36.7; O2SAT 95–97; BMI 29.0
[2024-04-18] MEDS: Lactated Ringers 1,000 ML 80 ML IV (07:37)
[2024-04-18] MEDS: Sulfameth/Trimeth DS TAB 1 TAB PO (07:38)
--- NOTE | 2024-04-18 08:10 | W.ANESPRE ---
General Info Date of Service Date Performed: 04/18/24 Height: 5 ft 11 in Weight: 94.6 kg Body Mass Index (BMI): 29.0 Surgical Procedure: Operation Date: 04/18/24 08:55 Proposed Procedure Side Surgeon p Cysto, B/L Retrograde, ? Transurethral Resection Bladder Tumor Jose Pham MD Meds Allergies and Home Medications Allergies Allergy/AdvReac Type Severity Reaction Status Date / Time ceftriaxone Allergy Severe ANAPHYLAXIS Verified 04/18/24 07:14 Cephalosporins Allergy Severe Anaphylaxsi Verified 04/18/24 07:14 s ciprofloxacin AdvReac Dizziness/L Verified 04/18/24 07:14 ightheade fentanyl AdvReac Agitation, Verified 04/18/24 07:14 confusion meperidine HCl (From Demerol) AdvReac vomiting Verified 04/18/24 07:14 morphine AdvReac vomiting Verified 04/18/24 07:14 Home Medication ?Medication ?Instructions ?Recorded meclizine 25 mg tablet 25 mg PO Q6H PRN 06/28/20 diphenhydramine 25 2 tab PO Q4H PRN 07/21/22 mg-acetaminophen 500 mg tablet (Tylenol PM Extra Strength) simvastatin 10 mg tablet 10 mg PO DAILY 05/06/23 amoxicillin 500 mg tablet 2,000 mg PO DAILY PRN 05/22/23 omeprazole 40 mg capsule,delayed 40 mg PO DAILY 05/22/23 release cyanocobalamin (vitamin B-12) 1,000 mcg PO DAILY 05/25/23 1,000 mcg capsule fluoxetine 40 mg capsule 40 mg PO DAILY 05/25/23 vitamin E (dl, acetate) 180 mg 180 mg PO DAILY 07/07/23 (400 unit) capsule fluoride (sodium) 1.1 % dental 1 applic dental DAILY 02/10/24 paste levothyroxine 125 mcg tablet 125 mcg PO DAILY 02/10/24 Current Visit Medications: Current Medications Generic Name Dose Route Start Last Admin Trade Name Freq PRN Reason Stop Dose Admin Ringer's Solution 1,000 mls @ 80 mls/hr 04/18/24 06:00 04/18/24 07:37 IV 05/15/24 23:59 80 mls/hr INFUSION BRANDON Administration IV Miscellaneous Supplies 1 each 04/18/24 06:00 Iv Access IV 05/15/24 23:59 DIRECTED BRANDON Sodium Chloride 0 ml 04/18/24 06:00 Normal Saline Flush 10 Ml Syr IV 05/15/24 23:59 PRN PRN Sodium Chloride 0 ml 04/18/24 06:00 Normal Saline 10 Ml Vial IJ 05/15/24 23:59 DIRECTED PRN Sterile Water 0 ml 04/18/24 06:00 Water,Injection,Sterile 10 Ml Vial IJ 05/15/24 23:59 DIRECTED PRN Trimethoprim/Sulfamethoxazole 1 tab 04/18/24 06:00 04/18/24 07:38 Sulfameth/Trimeth Ds Tab PO 04/18/24 16:00 1 tab PREOP BRANDON Administration PFSH Active Problems Active Problems: Problem Status Onset Code Gross hematuria Acute R31.0 Hematoma of abdominal wall Acute S30.1XXA Recurrent simple right inguinal hernia Acute K40.91 Atopic dermatitis Acute L20.9 Contact dermatitis Acute L25.9 Lightheadedness Acute R42 Sensorineural hearing loss Acute H90.5 Tubular adenoma of colon Acute D12.6 Hypomagnesemia Acute E83.42 Hypoglycemia Acute E16.2 Dysphagia Chronic R13.10 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 Acute L98.499 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 Cervical lymphadenopathy Acute R59.0 Tonsillar mass Acute J35.8 Unintentional weight loss Acute R63.4 Abnormal laboratory test Acute R89.9 Chest pain Acute R07.9 Sleep apnea Acute G47.30 Asthma Chronic J45.909 Medical History Medical History 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 Essential hypertension Acute joint pain Vitamin D deficiency High arbovirus antibody titer Mild intermittent asthma Hyperthyroidism Inguinal hernia Hx of major depression Malignant tumor of tonsil Heart beat abnormality Dizziness and giddiness Abnormal weight loss Lumbosacral radiculopathy 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 states not at this present time Back pain, acute GERD (gastroesophageal reflux disease) Septic arthritis of knee Septic joint Hypotension Headache Cervical Vertigo Bradycardia Insect bite Fatigue Shoulder pain, right Hip pain, left Neck pain on left side Vitamin B12 deficiency Arthralgia Radicular syndrome of lower limbs URI, acute Psoriasis Primary osteoarthritis of right hip Chronic low back pain Hypothyroidism Diabetic peripheral neuropathy DJD of right AC (acromioclavicular) joint Right rotator cuff tear Injection under fluoroscopy: 11/04/18 Status post rotator cuff repair DOS: 01/25/2019 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 Surgical History Surgical History S/P inguinal hernia repair using synthetic patch (~07/08/23) recurrent right inguinal hernia S/P inguinal hernia repair using synthetic patch (~06/09/22) and umbilical hernia History of total left hip replacement (09/02/19) Trochanteric bursitis, left hip S/P debridement with IT band lengthenin08/12/2021 History of total left knee replacement (10/02/20) Hx of colonoscopy (~07/2022) Hx of total knee arthroplasty Right Status post right rotator cuff repair (~01/25/19) Repair of supraspinatus, distal clavicle excision, biceps tenotomy Dr. 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 Tobacco Smoking/Tobacco Use Status: Former Tobacco Use Alcohol Alcohol Intake: current Alcohol intake frequency: a few times a week Alcohol type: beer Details: MODERATE 5-7 TIMES PER WEEK Substance Use Substance use: Never Substance use type: does not use Vital Signs and Lab Results Vital Signs Most Recent Vital Signs in EMR: Most Recent Vital Signs Temp Pulse Resp BP Pulse Ox 36.7 C 63 16 131/70 97 04/18/24 07:34 04/18/24 07:34 04/18/24 07:34 04/18/24 07:34 04/18/24 07:34 Lab Results Blood Type / Crossmatch: No Data to Display Complete Blood Count: No Data to Display Complete Metabolic Panel: No Data to Display Liver Function Panel: No Data to Display Coagulation Panel: No Data to Display Cardiac Panel: No Data to Display Arterial Blood Gas: No Data to Display Venous Blood Gas: No Data to Display Pancreas Panel: No Data to Display Thyroid Panel: No Data to Display Infectious Disease: No Data to Display Blood Cultures: No Data to Display Toxicology Panel: No Data to Display Imaging and Studies Imaging and Studies Study information below may be from another EMR and interpreted by another provider. Please see original notes in EMR for more complete details. EKG Summary: 07/06/23: Exam: Resting ECG Reason for Exam: bradycardia Patient Location: O HR:60 bpm ECG Measurements Heart Rate 60 AXIS ND 165 P -47 QRSd 116 QRS 18 QT 446 T23 QTc 446 Conclusion Sinus rhythm Borderline low voltage, extremity leads...all extremity leads <0.6mV Stress Test Summary: 08/26: max HR 46% for predicted age. non-diagnostic. LVEF 50%. Echocardiogram Summary: 08/26: LVEF 60%, trace/mild TR. mild MR. 12/23: no prefusion defects noted. LVEF 43%. Anesthesia Assessment and Plan Anesthesia History Personal History: No History of Anesthesia Complications Family History: No Family History of Anesthesia Complications Exercise Tolerance Exercise Tolerance: Metabolic Equivalents>4 Implantable Cardiac Device Does patient have a Pacemaker or an ICD?: No Airway Exam Known Difficult Airway: No Mallampati Class: 4 Mouth Opening: Normal (> 3cm) Thyromental Distance: Greater than 3 cm Neck Range of Motion: Full ROM Neck Circumference: Thick Teeth Condition: Generalized Poor Dentition Airway Comments: #12 broken #11 chipped ASA Classification ASA Score: ASA 3 Emergency Case?: No NPO Status NPO Status: NPO Clears >2 hours, Solids >8 hours Anesthesia Plan Resuscitation Status: Full Code Anesthesia Technique: General Anesthesia Airway Planned: Endotracheal Tube (RSI) Monitors Used: Standard Monitors and SedLine
--- NOTE | 2024-04-18 08:32 | W.ANESPRE ---
General Info Date of Service Date Performed: 04/18/24 Height: 5 ft 11 in Weight: 94.6 kg Body Mass Index (BMI): 29.0 Surgical Procedure: Operation Date: 04/18/24 08:55 Proposed Procedure Side Surgeon p Cysto, B/L Retrograde, ? Transurethral Resection Bladder Tumor Jose Pham MD Meds Allergies and Home Medications Allergies Allergy/AdvReac Type Severity Reaction Status Date / Time ceftriaxone Allergy Severe ANAPHYLAXIS Verified 04/18/24 07:14 Cephalosporins Allergy Severe Anaphylaxsi Verified 04/18/24 07:14 s ciprofloxacin AdvReac Dizziness/L Verified 04/18/24 07:14 ightheade fentanyl AdvReac Agitation, Verified 04/18/24 07:14 confusion meperidine HCl (From Demerol) AdvReac vomiting Verified 04/18/24 07:14 morphine AdvReac vomiting Verified 04/18/24 07:14 Home Medication ?Medication ?Instructions ?Recorded meclizine 25 mg tablet 25 mg PO Q6H PRN 06/28/20 diphenhydramine 25 2 tab PO Q4H PRN 07/21/22 mg-acetaminophen 500 mg tablet (Tylenol PM Extra Strength) simvastatin 10 mg tablet 10 mg PO DAILY 05/06/23 amoxicillin 500 mg tablet 2,000 mg PO DAILY PRN 05/22/23 omeprazole 40 mg capsule,delayed 40 mg PO DAILY 05/22/23 release cyanocobalamin (vitamin B-12) 1,000 mcg PO DAILY 05/25/23 1,000 mcg capsule fluoxetine 40 mg capsule 40 mg PO DAILY 05/25/23 vitamin E (dl, acetate) 180 mg 180 mg PO DAILY 07/07/23 (400 unit) capsule fluoride (sodium) 1.1 % dental 1 applic dental DAILY 02/10/24 paste levothyroxine 125 mcg tablet 125 mcg PO DAILY 02/10/24 Current Visit Medications: Current Medications Generic Name Dose Route Start Last Admin Trade Name Freq PRN Reason Stop Dose Admin Ringer's Solution 1,000 mls @ 80 mls/hr 04/18/24 06:00 04/18/24 07:37 IV 05/15/24 23:59 80 mls/hr INFUSION BRANDON Administration IV Miscellaneous Supplies 1 each 04/18/24 06:00 Iv Access IV 05/15/24 23:59 DIRECTED BRANDON Sodium Chloride 0 ml 04/18/24 06:00 Normal Saline Flush 10 Ml Syr IV 05/15/24 23:59 PRN PRN Sodium Chloride 0 ml 04/18/24 06:00 Normal Saline 10 Ml Vial IJ 05/15/24 23:59 DIRECTED PRN Sterile Water 0 ml 04/18/24 06:00 Water,Injection,Sterile 10 Ml Vial IJ 05/15/24 23:59 DIRECTED PRN Trimethoprim/Sulfamethoxazole 1 tab 04/18/24 06:00 04/18/24 07:38 Sulfameth/Trimeth Ds Tab PO 04/18/24 16:00 1 tab PREOP BRANDON Administration PFSH Active Problems Active Problems: Problem Status Onset Code Gross hematuria Acute R31.0 Hematoma of abdominal wall Acute S30.1XXA Recurrent simple right inguinal hernia Acute K40.91 Atopic dermatitis Acute L20.9 Contact dermatitis Acute L25.9 Lightheadedness Acute R42 Sensorineural hearing loss Acute H90.5 Tubular adenoma of colon Acute D12.6 Hypomagnesemia Acute E83.42 Hypoglycemia Acute E16.2 Dysphagia Chronic R13.10 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 Acute L98.499 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 Cervical lymphadenopathy Acute R59.0 Tonsillar mass Acute J35.8 Unintentional weight loss Acute R63.4 Abnormal laboratory test Acute R89.9 Chest pain Acute R07.9 Sleep apnea Acute G47.30 Asthma Chronic J45.909 Medical History Medical History 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 Essential hypertension Acute joint pain Vitamin D deficiency High arbovirus antibody titer Mild intermittent asthma Hyperthyroidism Inguinal hernia Hx of major depression Malignant tumor of tonsil Heart beat abnormality Dizziness and giddiness Abnormal weight loss Lumbosacral radiculopathy 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 states not at this present time Back pain, acute GERD (gastroesophageal reflux disease) Septic arthritis of knee Septic joint Hypotension Headache Cervical Vertigo Bradycardia Insect bite Fatigue Shoulder pain, right Hip pain, left Neck pain on left side Vitamin B12 deficiency Arthralgia Radicular syndrome of lower limbs URI, acute Psoriasis Primary osteoarthritis of right hip Chronic low back pain Hypothyroidism Diabetic peripheral neuropathy DJD of right AC (acromioclavicular) joint Right rotator cuff tear Injection under fluoroscopy: 11/04/18 Status post rotator cuff repair DOS: 01/25/2019 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 Surgical History Surgical History S/P inguinal hernia repair using synthetic patch (~07/08/23) recurrent right inguinal hernia S/P inguinal hernia repair using synthetic patch (~06/09/22) and umbilical hernia History of total left hip replacement (09/02/19) Trochanteric bursitis, left hip S/P debridement with IT band lengthenin08/12/2021 History of total left knee replacement (10/02/20) Hx of colonoscopy (~07/2022) Hx of total knee arthroplasty Right Status post right rotator cuff repair (~01/25/19) Repair of supraspinatus, distal clavicle excision, biceps tenotomy Dr. 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 Tobacco Smoking/Tobacco Use Status: Former Tobacco Use Alcohol Alcohol Intake: current Alcohol intake frequency: a few times a week Alcohol type: beer Details: MODERATE 5-7 TIMES PER WEEK Substance Use Substance use: Never Substance use type: does not use Vital Signs and Lab Results Vital Signs Most Recent Vital Signs in EMR: Most Recent Vital Signs Temp Pulse Resp BP Pulse Ox 36.7 C 63 16 131/70 97 04/18/24 07:34 04/18/24 07:34 04/18/24 07:34 04/18/24 07:34 04/18/24 07:34 Lab Results Blood Type / Crossmatch: No Data to Display Complete Blood Count: No Data to Display Complete Metabolic Panel: No Data to Display Liver Function Panel: No Data to Display Coagulation Panel: No Data to Display Cardiac Panel: No Data to Display Arterial Blood Gas: No Data to Display Venous Blood Gas: No Data to Display Pancreas Panel: No Data to Display Thyroid Panel: No Data to Display Infectious Disease: No Data to Display Blood Cultures: No Data to Display Toxicology Panel: No Data to Display Imaging and Studies Imaging and Studies Study information below may be from another EMR and interpreted by another provider. Please see original notes in EMR for more complete details. EKG Summary: 07/06/23: Exam: Resting ECG Reason for Exam: bradycardia Patient Location: O HR:60 bpm ECG Measurements Heart Rate 60 AXIS DC 165 P -47 QRSd 116 QRS 18 QT 446 T23 QTc 446 Conclusion Sinus rhythm Borderline low voltage, extremity leads...all extremity leads <0.6mV Stress Test Summary: 08/26: max HR 46% for predicted age. non-diagnostic. LVEF 50%. Echocardiogram Summary: 08/26: LVEF 60%, trace/mild TR. mild MR. 12/23: no prefusion defects noted. LVEF 43%. Anesthesia Assessment and Plan Anesthesia History Personal History: No History of Anesthesia Complications Family History: No Family History of Anesthesia Complications Exercise Tolerance Exercise Tolerance: Metabolic Equivalents>4 Pertinent Negatives Pertinent Negatives: No Major Cardiovascular Symptoms or Complaints and No History of CVA/TIA Cardiac & Pulmonary Exam Cardiac Exam: Normal S1/S2 Heart Sounds Pulmonary Exam: Clear Bilateral Breath Sounds Implantable Cardiac Device Does patient have a Pacemaker or an ICD?: No Airway Exam Known Difficult Airway: No Mallampati Class: 4 Mouth Opening: Normal (> 3cm) Thyromental Distance: Greater than 3 cm Neck Range of Motion: Full ROM Neck Circumference: Thick Teeth Condition: Generalized Poor Dentition Airway Comments: #12 broken #11 chipped ASA Classification ASA Score: ASA 2 Emergency Case?: No NPO Status NPO Status: NPO Clears >2 hours, Solids >8 hours Anesthesia Plan Resuscitation Status: Full Code Anesthesia Technique: General Anesthesia Airway Planned: Endotracheal Tube (Previous anesthetic noted bile in LMA, plan to RSI/ETT) Monitors Used: Standard Monitors Preoperative Comments:: After discussion with patient, he denies BRANDI/HTN/Anemia/Cardiac history, IDDM cured per pt. after tonsillar mass treated, treated for hypothyroid, denies hyperthyroid history.
--- NOTE | 2024-04-18 08:55 | W.PM.HP.N ---
Date of service: 04/18/24 Time of Service: 08:55 Assessment and Plan Assessment and plan (1) Gross hematuria: Status: Acute Assessment and plan: We will complete his hematuria workup with a cystoscopy and bilateral retrograde pyelogram. We will be prepared to do transurethral resection of any visible bladder tumor. History of Present Illness History of Present Illness Chief Complaint: Gross hematuria Narrative: Chief complaint: Gross hematuria This is a 73-year-old gentleman who has a history of gross, painless hematuria. He was evaluated with a renal ultrasound which showed no significant upper tract disease. He presents now for cystoscopy with bilateral retrograde pyelogram to complete his hematuria workup. He has had no visible blood in the urine since his initial urology appointment Review of Systems Narrative: No fevers or chills Tonsil carcinoma. Decreased hearing acuity. No vision change or dysphasia Diabetes. No thyroid Sleep apnea. No cough or hemoptysis No chest pain or palpitations No hepatitis, ulcers, jaundice No seizures or strokes No bleeding disorders or anemia No gout PFSH All Active Problems Gross hematuria (Acute) Hematoma of abdominal wall (Acute) post-op Recurrent simple right inguinal hernia (Acute) Atopic dermatitis (Acute) Contact dermatitis (Acute) Lightheadedness (Acute) Sensorineural hearing loss (Acute) Tubular adenoma of colon (Acute) Hypomagnesemia (Acute) Hypoglycemia (Acute) Dysphagia (Chronic) 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 (Acute) Squamous cell carcinoma of tonsil (Acute) Cervical lymphadenopathy (Acute) Tonsillar mass (Acute) Unintentional weight loss (Acute) Abnormal laboratory test (Acute) Chest pain (Acute) Sleep apnea (Acute) Asthma (Chronic) Medical History 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 Essential hypertension Acute joint pain Vitamin D deficiency High arbovirus antibody titer Mild intermittent asthma Hyperthyroidism Inguinal hernia Hx of major depression Malignant tumor of tonsil Heart beat abnormality Dizziness and giddiness Abnormal weight loss Lumbosacral radiculopathy 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 states not at this present time Back pain, acute GERD (gastroesophageal reflux disease) Septic arthritis of knee Septic joint Hypotension Headache Cervical Vertigo Bradycardia Insect bite Fatigue Shoulder pain, right Hip pain, left Neck pain on left side Vitamin B12 deficiency Arthralgia Radicular syndrome of lower limbs URI, acute Psoriasis Primary osteoarthritis of right hip Chronic low back pain Hypothyroidism Diabetic peripheral neuropathy DJD of right AC (acromioclavicular) joint Right rotator cuff tear Injection under fluoroscopy: 11/04/18 Status post rotator cuff repair DOS: 01/25/2019 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) Essential tremor (11/21/14) Hyperlipemia Depression Surgical History S/P inguinal hernia repair using synthetic patch (~07/08/23) recurrent right inguinal hernia S/P inguinal hernia repair using synthetic patch (~06/09/22) and umbilical hernia History of total left hip replacement (09/02/19) Trochanteric bursitis, left hip S/P debridement with IT band lengthenin08/12/2021 History of total left knee replacement (10/02/20) Hx of colonoscopy (~07/2022) Hx of total knee arthroplasty Right Status post right rotator cuff repair (~01/25/19) Repair of supraspinatus, distal clavicle excision, biceps tenotomy Dr. 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 Family History (Updated 02/10/24 @ 08:35 by Joie Mcdermott RN, RN) Father , 65 from [place] Heart disease Hypertension Myocardial infarction Brother , 83 of leukemia Tremor Leukemia Son Seizure Mother , age 95 Osteoarthritis Daughter Alive and well Social History (Updated 01/29/24 @ 08:44 by Harmony Ambrocio) Smoking/Tobacco Use Status: Former Tobacco Use Quit Date: 09/07/79 Pack-years: 1 Smoking risk assessment performed?: Yes Alcohol Intake: current Alcohol Intake frequency: a few times a week Alcohol type: beer Details: MODERATE 5-7 TIMES PER WEEK Drug use: Never Substance use type: does not use Household members: children Housing: house Number of Children: 2 current occupation: Retired Current gender identity: male What type of physical activity do you participate in: independent ambulation Do you feel safe at home: Yes (grandson (Kiera) lives with him) Do you feel safe in your relationship?: Yes Meds Allergies and Home Medications Allergies Allergy/AdvReac Type Severity Reaction Status Date / Time ceftriaxone Allergy Severe ANAPHYLAXIS Verified 04/18/24 07:14 Cephalosporins Allergy Severe Anaphylaxsi Verified 04/18/24 07:14 s ciprofloxacin AdvReac Dizziness/L Verified 04/18/24 07:14 ightheade fentanyl AdvReac Agitation, Verified 04/18/24 07:14 confusion meperidine HCl (From Demerol) AdvReac vomiting Verified 04/18/24 07:14 morphine AdvReac vomiting Verified 04/18/24 07:14 Home Medications ?Medication ?Instructions ?Recorded ?Confirmed ?Type meclizine 25 mg tablet 25 mg PO Q6H PRN 06/28/20 04/18/24 History diphenhydramine 25 2 tab PO Q4H PRN 07/21/22 04/18/24 History mg-acetaminophen 500 mg tablet (Tylenol PM Extra Strength) simvastatin 10 mg tablet 10 mg PO DAILY 05/06/23 04/18/24 History amoxicillin 500 mg tablet 2,000 mg PO DAILY PRN 05/22/23 04/18/24 History omeprazole 40 mg capsule,delayed 40 mg PO DAILY 05/22/23 04/18/24 History release cyanocobalamin (vitamin B-12) 1,000 mcg PO DAILY 05/25/23 04/18/24 History 1,000 mcg capsule fluoxetine 40 mg capsule 40 mg PO DAILY 05/25/23 04/18/24 History vitamin E (dl, acetate) 180 mg 180 mg PO DAILY 07/07/23 04/18/24 History (400 unit) capsule fluoride (sodium) 1.1 % dental 1 applic dental DAILY 02/10/24 04/18/24 History paste levothyroxine 125 mcg tablet 125 mcg PO DAILY 02/10/24 04/18/24 History Exam Const General: cooperative Resp Auscultation: clear to auscultation bilaterally Cardio Rate: regular rate Rhythm: regular rhythm GI Palpation: soft and no masses Neuro General: patient alert, patient awake and patient oriented x3 Results Last Vital Signs Temp 36.7 C 04/18/24 07:34 Pulse 63 04/18/24 07:34 Resp 16 04/18/24 07:34 BP 131/70 04/18/24 07:34 Pulse Ox 97 04/18/24 07:34 Time Spent Time spent with Patient: <40 minutes Time was spent: other
[2024-04-18] MEDS: Lidocaine 2% Jelly 6 ML SYR (09:46)
[2024-04-18] MEDS: Omnipaque 300 MG/ML 50 ML BTL (09:47)
--- NOTE | 2024-04-18 10:22 | PAPNONF_PTH ---
PATIENT: Arianna Arevalo LOC: [facility] U#:[id number] AGE/SX: 73/M ROOM: RE04/18/[address]: Jose Pham MD : [id number] BED: DIS: 04/18/2024 SPEC #: [id number] RECD: 04/18/24 13:13 STATUS: ALFREDITO REQ #: [id number] ALBERTO: 04/18/24 10:[address]: Jose Pham DEPT: [facility], [facility] Cytology RECD BY: Kiesha Parkinson ENTERED: 04/18/24 13:14 SP TYPE: [facility] DR: Beatriz Cotton V Tissues: 1 - BODY FLUID CYTO(SPUTUM/URINE)[facility] Procedures: BODY FLUID CYTO(URINE/SPUTUM) Comments: [id number] (TV = 50 mL, SENT FRESH) (REFRIGERATED)
--- NOTE | 2024-04-18 10:43 | DI.RAD_ITS ---
Exam(s) XR RETROGRADE IN OR EXAM: XR RETROGRADE IN OR CLINICAL HISTORY: Gross hematuria TECHNIQUE: 2D and realtime digital imaging was performed. CONTRAST MATERIAL: Refer to procedure report. COMPARISON: US US RENAL from 02/24/2024 FINDINGS: Fluoroscopy was provided for Dr. Pham during the performance of a renal collecting system evaluatio n. Please refer to the procedure report for complete details. Ka,r=29.6 mGy IMPRESSION: RADIATION DOSE DELIVERED: 0.0 0.0 0
--- NOTE | 2024-04-18 11:09 | W.PM.DSUDISC ---
Date of service: 04/18/24 Time of Service: 11:09 Discharge Plan Disposition Patient Disposition: Home Discharge Details Reason For Visit: cystoscopy Attending Provider: Jose Pham Primary Care Provider: Beatriz Cotton V Home Meds and New Rx's Prescriptions: New tramadol 50 mg tablet 50 mg PO Q8H PRN (Reason: pain) Qty: 20 0RF Rx Instructions: may take with tylenol and NSAIDs No Action vitamin E (dl, acetate) 180 mg (400 unit) capsule 180 mg PO DAILY meclizine 25 mg Tablet 25 mg PO Q6H PRN Patient Comments: Only for dentist fluoxetine 40 mg capsule 40 mg PO DAILY cyanocobalamin (vitamin B-12) 1,000 mcg capsule 1,000 mcg PO DAILY omeprazole 40 mg capsule,delayed release(DR/EC) 40 mg PO DAILY amoxicillin 500 mg tablet 2,000 mg PO DAILY PRN Rx Instructions: take 4 tablets one hour prior to dental procedure fluoride (sodium) 1.1 % paste 1 applic dental DAILY levothyroxine 125 mcg tablet 125 mcg PO DAILY diphenhydramine-acetaminophen [Tylenol PM Extra Strength] 25-500 mg Tablet 2 tab PO Q4H PRN Rx Instructions: administer while awake simvastatin 10 mg tablet 10 mg PO DAILY Discharge Instructions Additional Instructions: my office and diagnostic imaging will contact you to arrange a CT scan of your kidneys and a followup appointment after the scan is done I placed bilateral ureteral stents so do not be surprised if you see blood in the urine or have discomfort when you urinate as long as the stents are in place Discharge Orders Discharge Orders: Discharge Order (Routine); Ordered 04/18/24 Ordered By: Jose Pham DS: Diagnosis Discharge Diagnosis (1) Gross hematuria: Status: Acute
--- NOTE | 2024-04-18 11:16 | W.PM.OP ---
Date of service: 04/18/24 Time of Service: 11:16 Operative Note Operative Note DATE OF PROCEDURE: 04/18/24 PRE-OP DIAGNOSIS: Gross hematuria POST-OP DIAGNOSIS: same right renal mass PROCEDURE: cystoscopy, bilateral retrograde pyelograms, bilateral diagnostic ureteroscopy, right renal washing for cytology, insert bilateral ureteral stents SURGEON: Jose Pham ANESTHESIA TYPE: Local By Surgeon and General LMA/ETT Refer to Anesthesia Record ESTIMATED BLOOD LOSS: 10 PATHOLOGY: other (right renal washing for cytology) COMPLICATIONS: None Patient was transported to: PACU Patient's condition: stable Implants: 7 Citizen [place] by 22 to 30 cm right ureteral stent 4.8 Citizen [place] by 22 to 30 cm left ureteral stent Indications: This is a 73-year-old gentleman who is seen for gross painless hematuria. He has been evaluated with a renal ultrasound which showed a left renal cyst but no solid renal masses or hydronephrosis. He presents for cystoscopy and retrograde pyelograms to complete his hematuria workup Findings: radiolucent filling defect just below right UPJ - on ureteroscopy, clot adherent to underlying nodular mass with necrosis Procedure Description: The patient was given antibiotics and brought to the operating room on 04/18/2024. He is placed in the dorsal lithotomy position. His genitalia is prepped and draped. 2% Xylocaine jelly is instilled into the urethra to act as a local anesthetic. A 22 Citizen [place] rigid cystoscope was passed through the urethra into the bladder. The urethra and bladder were inspected with 30 degree lens. The pendulous, bulbar and membranous urethra appeared normal with no strictures. The prostatic urethra showed some lateral lobe enlargement but no significant median lobe. Both ureteral orifices were then identified. The urine coming from the right ureteral orifice was a bit more dark compared to the urine from the left. The remainder of the bladder was inspected using a 30 and a 70 degree lens. No papillary or nodular lesions were identified. Each ureteral orifice was then cannulated with a 5 Citizen [place] access catheter. Retrograde pyelograms were obtained by injecting Omnipaque through the access catheter under fluoroscopic guidance. On the right retrograde pyelogram, there was a persistent radiolucent filling defect just below the ureteropelvic junction. Contrast was able to drain past the area, so there was no obstruction or hydronephrosis. On the left side, there was a transient radiolucent filling defect in the renal pelvis. Because of these findings, we elected to go ahead with diagnostic ureteroscopy. I began on the left side and passed a guidewire up the left ureter under fluoroscopic guidance. A dual-lumen catheter was then advanced over the wire and a second wire was positioned. We passed the ureteral access sheath over the working wire and chose the other wire as our safety wire. I then passed the flexible ureteroscope up into the left kidney. I inspected each of the calyces and found no stone or filling defect within the collecting system. The scope was then withdrawn down the ureter and no abnormalities were identified. We elected to place a 4.8 Citizen [place] variable length stent over the safety wire. We position the stent with the proximal and curled up in the upper pole calyx and the distal end curled within the bladder. We then recannulated the right ureteral orifice and passed a guidewire through the lumen of the access catheter under fluoroscopic guidance. The wire was advanced up into the kidney. The access catheter was replaced with a dual-lumen catheter and a second wire was positioned. We passed the ureteral access sheath over the working wire leaving the safety wire in place. I then passed the flexible ureteroscope through the access sheath. In the region of the filling defect seen on retrograde pyelogram, a clot was identified. Once I tease the clot off the underlying mucosa, there appeared to be a solid, nodular mass with some necrotic tissue. As I am manipulated the clot, my visibility became compromised and I was not able to visualize the mass well enough to take a direct biopsy. I did aspirate fluid from the collecting system and irrigated with saline in order to obtain a cytology exam. The aspirated fluid was sent to pathology. We then removed the ureteroscope and access sheath. I passed a 7 Citizen [place] variable length stent over the safety wire. The proximal end of the stent was curled in the renal pelvis and the distal end was curled within the bladder. The positioning of the stent were confirmed both fluoroscopically and cystoscopically. Because of the suspected underlying mass, we will obtain a renal mass protocol CT scan. We will see him back after the scan is completed and when his cytology results are available.
[2024-04-18] MEDS: Phenazopyridine 200 MG TAB PO (11:59)
[2024-04-18] MEDS: traMADol 50 MG TAB PO (11:59)
--- NOTE | 2024-04-18 11:59 | W.ANESPOSTOP ---
Postoperative Evaluation Date, Time and Location Date Performed: 04/18/24 Time Performed: 11:50 Patient Location: Day Surgery Unit Vital Signs Most Recent Imported Vital Signs: Most Recent Vital Signs Temp Pulse Resp BP Pulse Ox 36.6 C 55 L 16 162/68 H 97 04/18/24 11:31 04/18/24 11:21 04/18/24 11:21 04/18/24 11:21 04/18/24 11:21 Pain Score Most Recent Pain Score: Most Recent Pain Score Pain Level 0 04/18/24 11:31 Assessment Mental Status: Awake (Alert & Oriented to Patient Baseline) Airway and Respiratory Function: Patent airway with normal (patient baseline) respiratory exam Cardiovascular Function: Hemodynamically Stable Hydration Status: Adequately Hydrated Nausea & Vomiting: No Nausea or Vomiting Pain: Pt. Denies Any Pain Peripheral Nerve Block: Patient did not receive a nerve block
== END 2024-04-18 13:03 | disposition home or self-care (01) ==
PROVIDERS: PCP Family Medicine; Visit Provider Urology
PROC: 0TBB8ZZ Excision of Bladder, Via Natural or Artificial Opening Endoscopic (ICD-10-PCS; CPT 52332; principal; 2024-04-18 08:45)
DX: R31.0 Gross hematuria (principal); C67.9 Malignant neoplasm of bladder, unspecified; N28.1 Cyst of kidney, acquired
CPT/HCPCS: 52332; 52351; 74420; 88104; J0131; J0330; J1100; J1805; J1885; J2001; J2405; J2704; Q9967

== ENCOUNTER 2024-05-04 12:45 | Outpatient (CLI) | payer MEDICARE, SELFPAY ==
--- NOTE | 2024-05-04 10:15 | DI.RAD_ITS ---
Exam(s) XR SHOULDER LT COMPLETE 2+V EXAM: XR SHOULDER LT COMPLETE 2+V CLINICAL HISTORY: LEFT SHOULDER PAIN. TECHNIQUE: 2D digital imaging was performed. COMPARISON: CR XR shoulder RT complete 2+V from 08/18/2018 FINDINGS: Four views No evidence of acute fracture or dislocation of glenohumeral joint. There are no calcifications in t he non diminished subacromial space. There are mild degenerative changes in the glenohumeral joint. No osteophytes. There are multiple confluent calcific densities seen just above the a chromium, almost subcutaneous i n location. There are mild degenerative changes in the AC joint. IMPRESSION: Mild degenerative changes in the glenohumeral and AC joints. Multiple small but probably confluent calcifications are seen above the a chromium, not in the glenoh umeral joint space. These abnormal calcifications which are intimately associated with the superior aspect of the a chromium may be within an eccentric ganglion cyst off of the superior aspect of the A C joint or may be independently located at this level. There is no evidence of os acromial. DATA REPOSITORY: RADIATION DOSE DELIVERED:
== END 2024-05-04 12:46 | disposition home or self-care (01) ==
LOC: DIORS 12:45
PROVIDERS: PCP Family Medicine; Referring Provider Family Medicine; Visit Provider Student in an Organized Health Care Education/Training Program
DX: M61.412 Other calcification of muscle, left shoulder
CPT/HCPCS: 99213; 73030

== ENCOUNTER 2024-05-05 01:48 | Outpatient (CLI) | payer MEDICARE, SELFPAY ==
[2024-05-05 12:00] LABS: CREATININE 1.1 mg/dL (0.70-1.30); Estimated GFR 70.44 (mL/min/1.73m2)
[2024-05-05] MEDS: Omnipaque 350 MG/ML 100 ML BTL IJ (12:30)
[2024-05-05] MEDS: Normal Saline - Diluent 50 ML VIAL IJ (12:31)
--- NOTE | 2024-05-05 12:40 | DI.CT_ITS ---
Exam(s) CT ABDOMEN WO/W EXAM: CT ABDOMEN WO/W CLINICAL HISTORY: mass just distal to UPJ on ureteroscopy, GROSS HEMATURIA, RENAL MASS, R31.0. TECHNIQUE: Imaging Protocol: Axial computed tomography images with coronal and sagittal reformatted images were created and reviewed CONTRAST MATERIAL: Intravenous: Omnipaque 350 Contrast volume:structured data in ml Contrast route:I V - Oral: / no COMPARISON: CT CT ABDOMEN PELVIS W from 06/09/2022 FINDINGS: ABDOMEN: Lung Bases: Heart mildly enlarged. Coronary artery calcifications. Lung bases are clear Liver: Normal density. No measurable mass. Gallbladder and biliary tract: Status post cholecystectomy no radiodense calculus or dilation. Pancreas: Normal density, no abnormal calcifications or inflammatory process. Spleen: Normal. Kidneys: Normal size, contour and axis. No radiodense stones or obstructive uropathy. Right renal phylicia nt noted with pigtail in renal pelvis. There is question of increased soft tissue density anterior t o the stent versus artifact. A left-sided ureteral stent is seen. The upper pigtail of the stent is coiled in the mid ureter. Simple cyst lower pole of the left kidney, stable from prior exam. Adrenal glands: No masses seen. Abdominal Aorta: Abdominal portion non-dilated. Lymph nodes: Within normal limits. Bones: Unremarkable for age. IMPRESSION: Right renal stent in place with upper pigtail in renal pelvis. There is artifact in this area. No definite mass. No hydronephrosis or calculi. Left renal stent is doubled back with the upper pigtail lying in the mid ureter. No hydronephrosis. No renal calculi. RADIATION DOSE DELIVERED: !Error Total DLP DATA REPOSITORY: All CT scans at this facility are submitted to the National Radiology Data Registry (NRDR) Dose Index Registry (DIR) with the [employer] (ACR). RADIATION OPTIMIZATION: All CT scans at this facility use at least one of these dose optimization te chniques: automated exposure control; mA and/or kV adjustment per patient size (includes targeted exa ms where dose is matched to clinical indication); or iterative reconstruction.
== END 2024-05-05 02:08 ==
PROVIDERS: PCP Family Medicine; Visit Provider Urology
DX: R31.0 Gross hematuria (principal); N28.89 Other specified disorders of kidney and ureter
CPT/HCPCS: 74170; 82565; J3490

== ENCOUNTER → 2024-05-20 08:18 | Outpatient (BNVA) | payer MEDICARE, SELFPAY | PROVIDERS: PCP Family Medicine; Referring Provider Family Medicine; Visit Provider Urology | DX: R31.0 Gross hematuria (principal) | CPT/HCPCS: 99214 ==

== ENCOUNTER 2024-06-06 02:06 | Outpatient (CLI) | payer MEDICARE, SELFPAY ==
--- NOTE | 2024-06-06 07:15 | DI.MRI_ITS ---
Exam(s) MR UPPER JOINT LT WO EXAM: MR UPPER JOINT LT WO CLINICAL HISTORY: eval of calcifications to rule out malignancy,[id number]. TECHNIQUE: Multiplanar multisequence MRI was performed. COMPARISON: Plain films 04 May 2024 Plain films of the right shoulder 18 August 2018 FINDINGS: BONES: There is no fracture or contusion pattern. No evidence of suspicious bony lesions. JOINTS:The acromioclavicular joint shows mild inferior spurring.. The glenohumeral joint is normal. TENDONS: Supraspinatus: Unremarkable. Infraspinatus: Unremarkable. Subscapularis: Unremarkable. Teres Minor: Unremarkable. Biceps and Wideman: Thickening of proximal long head of the biceps tendon some intermediate signal con sistent with tendinosis. No focal tear is visible. Small amount of associated fluid. MUSCLES: Unremarkable. GLENOID LABRUM: Unremarkable on this noncontrast examination. SOFT TISSUES: Dense calcifications noted in the subcutaneous fat above the level of the tip of the ac romion. These not associated with fluid. No evidence of associated mass. Similar findings are seen the contralateral shoulder. The calcifications were present in both shoulders on chest x-ray of 202 2. OTHER: Subacromial and subdeltoid bursae shows minimal fluid. Minimal fluid in subcoracoid bursa.. IMPRESSION: Tendinosis of the long head of biceps tendon. Calcifications in the subcutaneous fat above the acromion are not associated with fluid collection or mass. DATA REPOSITORY:
== END 2024-06-06 02:26 ==
PROVIDERS: PCP Family Medicine; Visit Provider Student in an Organized Health Care Education/Training Program
DX: M61.412 Other calcification of muscle, left shoulder (principal)
CPT/HCPCS: 73221

== ENCOUNTER 2024-06-09 06:58 | Day surgery (SDC) | payer MEDICARE, SELFPAY ==
[2024-06-09] VITALS (21 sets, daily range): BP systolic 118–148; BP diastolic 64–93; PULSE 49–89; RESP 13–19; TEMP 36.4–36.6; O2SAT 96–99; BMI 29.3
[2024-06-09] MEDS: Lactated Ringers 1,000 ML 80 ML IV (07:32)
--- NOTE | 2024-06-09 08:20 | W.ANESPRE ---
General Info Date of Service Date Performed: 06/09/24 Height: 5 ft 10 in Weight: 92.8 kg Body Mass Index (BMI): 29.3 Surgical Procedure: Operation Date: 06/09/24 09:25 Proposed Procedure Side Surgeon p Cystoscopy/Laser/Retrograde/Ureteroscopy/Possible Biopsy/Bi-Lateral Stent Removal Right Jose Pham MD Meds Allergies and Home Medications Allergies Allergy/AdvReac Type Severity Reaction Status Date / Time ceftriaxone Allergy Severe ANAPHYLAXIS Verified 06/09/24 07:22 Cephalosporins Allergy Severe Anaphylaxsi Verified 06/09/24 07:22 s ciprofloxacin AdvReac Dizziness/L Verified 06/09/24 07:22 ightheade fentanyl AdvReac Agitation, Verified 06/09/24 07:22 confusion meperidine HCl (From Demerol) AdvReac vomiting Verified 06/09/24 07:22 morphine AdvReac vomiting Verified 06/09/24 07:22 Home Medication ?Medication ?Instructions ?Recorded meclizine 25 mg tablet 25 mg PO Q6H PRN 06/28/20 diphenhydramine 25 2 tab PO Q4H PRN 07/21/22 mg-acetaminophen 500 mg tablet (Tylenol PM Extra Strength) simvastatin 10 mg tablet 10 mg PO DAILY 05/06/23 amoxicillin 500 mg tablet 2,000 mg PO DAILY PRN 05/22/23 omeprazole 40 mg capsule,delayed 40 mg PO DAILY 05/22/23 release cyanocobalamin (vitamin B-12) 1,000 mcg PO DAILY 05/25/23 1,000 mcg capsule fluoxetine 40 mg capsule 40 mg PO DAILY 05/25/23 vitamin E (dl, acetate) 180 mg 180 mg PO DAILY 07/07/23 (400 unit) capsule fluoride (sodium) 1.1 % dental 1 applic dental DAILY 02/10/24 paste levothyroxine 125 mcg tablet 125 mcg PO DAILY 02/10/24 Current Visit Medications: Current Medications Generic Name Dose Route Start Last Admin Trade Name Freq PRN Reason Stop Dose Admin Ringer's Solution 1,000 mls @ 80 mls/hr 06/09/24 06:00 06/09/24 07:32 IV 07/08/24 23:59 80 mls/hr INFUSION BRANDON Administration Gentamicin Sulfate 120 mg/ 103 mls @ 206 mls/hr 06/09/24 06:00 Sodium Chloride IVPB 06/09/24 16:00 PREOP BRADNON IV Miscellaneous Supplies 1 each 06/09/24 06:00 Iv Access IV 07/08/24 23:59 DIRECTED BRANDON Sodium Chloride 0 ml 06/09/24 06:00 Normal Saline Flush 10 Ml Syr IV 07/08/24 23:59 PRN PRN Sodium Chloride 0 ml 06/09/24 06:00 Normal Saline 10 Ml Vial IJ 07/08/24 23:59 DIRECTED PRN Sterile Water 0 ml 06/09/24 06:00 Water,Injection,Sterile 10 Ml Vial IJ 07/08/24 23:59 DIRECTED PRN PFSH Active Problems Active Problems: Problem Status Onset Code Other calcification of muscle, left shoulder Acute M61.412 Gross hematuria Acute R31.0 Hematoma of abdominal wall Acute S30.1XXA Recurrent simple right inguinal hernia Acute K40.91 Atopic dermatitis Acute L20.9 Contact dermatitis Acute L25.9 Lightheadedness Acute R42 Sensorineural hearing loss Acute H90.5 Tubular adenoma of colon Acute D12.6 Hypomagnesemia Acute E83.42 Hypoglycemia Acute E16.2 Dysphagia Chronic R13.10 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 states not at this present time Back pain, acute GERD (gastroesophageal reflux disease) Septic arthritis of knee Septic joint Hypotension Headache Cervical Vertigo Bradycardia Insect bite Fatigue Shoulder pain, right Hip pain, left Neck pain on left side Vitamin B12 deficiency Arthralgia Radicular syndrome of lower limbs URI, acute Psoriasis Primary osteoarthritis of right hip Chronic low back pain Hypothyroidism Diabetic peripheral neuropathy DJD of right AC (acromioclavicular) joint Right rotator cuff tear Injection under fluoroscopy: 11/04/18 Status post rotator cuff repair DOS: 01/25/2019 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 Surgical History Surgical History S/P inguinal hernia repair using synthetic patch (~07/08/23) recurrent right inguinal hernia S/P inguinal hernia repair using synthetic patch (~06/09/22) and umbilical hernia History of total left hip replacement (09/02/19) Trochanteric bursitis, left hip S/P debridement with IT band lengthenin08/12/2021 History of total left knee replacement (10/02/20) Hx of colonoscopy (~07/2022) Hx of total knee arthroplasty Right Status post right rotator cuff repair (~01/25/19) Repair of supraspinatus, distal clavicle excision, biceps tenotomy Dr. 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 Tobacco Smoking/Tobacco Use Status: Former Tobacco Use Alcohol Alcohol Intake: current Alcohol intake frequency: a few times a week Alcohol type: beer Details: MODERATE 5-7 TIMES PER WEEK Substance Use Substance use: Never Substance use type: does not use Vital Signs and Lab Results Vital Signs Most Recent Vital Signs in EMR: Most Recent Vital Signs Temp Pulse Resp BP Pulse Ox 36.4 C L 89 16 148/83 H 98 06/09/24 07:07 06/09/24 07:07 06/09/24 07:07 06/09/24 07:07 06/09/24 07:07 Lab Results Blood Type / Crossmatch: No Data to Display Complete Blood Count: No Data to Display Complete Metabolic Panel: No Data to Display Liver Function Panel: No Data to Display Coagulation Panel: No Data to Display Cardiac Panel: No Data to Display Arterial Blood Gas: No Data to Display Venous Blood Gas: No Data to Display Pancreas Panel: No Data to Display Thyroid Panel: No Data to Display Infectious Disease: No Data to Display Blood Cultures: No Data to Display Toxicology Panel: No Data to Display Imaging and Studies Imaging and Studies Study information below may be from another EMR and interpreted by another provider. Please see original notes in EMR for more complete details. EKG Summary: 07/06/23: Exam: Resting ECG Reason for Exam: bradycardia Patient Location: O HR:60 bpm ECG Measurements Heart Rate 60 AXIS AZ 165 P -47 QRSd 116 QRS 18 QT 446 T23 QTc 446 Conclusion Sinus rhythm Borderline low voltage, extremity leads...all extremity leads <0.6mV Stress Test Summary: 08/26: max HR 46% for predicted age. non-diagnostic. LVEF 50%. Echocardiogram Summary: 08/26: LVEF 60%, trace/mild TR. mild MR. 12/23: no prefusion defects noted. LVEF 43%. Anesthesia Assessment and Plan Anesthesia History Personal History: Other Family History: No Family History of Anesthesia Complications Exercise Tolerance Exercise Tolerance: Metabolic Equivalents>4 Pertinent Negatives Pertinent Negatives: No Major Cardiovascular Symptoms or Complaints and No History of CVA/TIA Cardiac & Pulmonary Exam Cardiac Exam: Normal S1/S2 Heart Sounds Pulmonary Exam: Clear Bilateral Breath Sounds Implantable Cardiac Device Does patient have a Pacemaker or an ICD?: No Airway Exam Known Difficult Airway: No Mallampati Class: 4 Mouth Opening: Normal (> 3cm) Thyromental Distance: Greater than 3 cm Neck Range of Motion: Full ROM Neck Circumference: Thick Teeth Condition: Generalized Poor Dentition Airway Comments: #12 broken #11 chipped ASA Classification ASA Score: ASA 2 Emergency Case?: No NPO Status NPO Status: NPO Clears >2 hours, Solids >8 hours Anesthesia Plan Resuscitation Status: Full Code Anesthesia Technique: General Anesthesia Airway Planned: Endotracheal Tube (Previous anesthetic noted bile in LMA, plan to RSI/ETT. ) Monitors Used: Standard Monitors Preoperative Comments:: From last Anesthetic: After discussion with patient, he denies BRANDI/HTN/Anemia/Cardiac history, IDDM cured per pt. after tonsillar mass treated, treated for hypothyroid, denies hyperthyroid history. Planning RSI due to prior bile on LMA. Discussed option of spinal which patient was not interested in.
--- NOTE | 2024-06-09 08:44 | HPE_ITS ---
Date of service: 06/09/24 Time of Service: 08:44 Assessment and Plan Assessment and plan (1) Gross hematuria: Status: Acute Assessment and plan: We will remove his ureteral stents and repeat right ureteroscopy in the hopes of getting a better tissue diagnosis. History of Present Illness History of Present Illness Chief Complaint: Gross hematuria Narrative: This is a 74-year-old gentleman who was previously seen with gross hematuria. We did bilateral ureteroscopy. We identified what appeared to be a mass in the right kidney along with an abnormal urine cytology. I was not able to obtain a definitive tissue diagnosis. I left bilateral ureteral stents in place. He presents now to have his stents removed and to repeat the right sided ureteroscopy in the hope of obtaining a better tissue diagnosis. Review of Systems Narrative: Weight loss. No fevers or chills Decreased hearing acuity. No vision change or dysphasia Diabetes. No thyroid dysfunction. Asthma. No hemoptysis No chest pain or palpitations No nausea, vomiting, hepatitis, ulcers, jaundice No seizures, strokes or peripheral neuropathy No bleeding disorders or anemia No gout PFSH All Active Problems (Updated 06/09/24 @ 07:23 by Alyson Aguilar, RN) Other calcification of muscle, left shoulder (Acute) Gross hematuria (Acute) Hematoma of abdominal wall (Acute) post-op Recurrent simple right inguinal hernia (Acute) Atopic dermatitis (Acute) Contact dermatitis (Acute) Lightheadedness (Acute) Sensorineural hearing loss (Acute) Tubular adenoma of colon (Acute) Hypomagnesemia (Acute) Hypoglycemia (Acute) Dysphagia (Chronic) IDDM (insulin dependent diabetes mellitus) (Chronic) no longer has diabetes due to weight loss and diet control 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 states not at this present time Back pain, acute GERD (gastroesophageal reflux disease) Septic arthritis of knee Septic joint Hypotension Headache Cervical Vertigo Bradycardia Insect bite Fatigue Shoulder pain, right Hip pain, left Neck pain on left side Vitamin B12 deficiency Arthralgia Radicular syndrome of lower limbs URI, acute Psoriasis Primary osteoarthritis of right hip Chronic low back pain Hypothyroidism Diabetic peripheral neuropathy DJD of right AC (acromioclavicular) joint Right rotator cuff tear Injection under fluoroscopy: 11/04/18 Status post rotator cuff repair DOS: 01/25/2019 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) Essential tremor (11/21/14) Hyperlipemia Depression Surgical History S/P inguinal hernia repair using synthetic patch (~07/08/23) recurrent right inguinal hernia S/P inguinal hernia repair using synthetic patch (~06/09/22) and umbilical hernia History of total left hip replacement (09/02/19) Trochanteric bursitis, left hip S/P debridement with IT band lengthenin08/12/2021 History of total left knee replacement (10/02/20) Hx of colonoscopy (~07/2022) Hx of total knee arthroplasty Right Status post right rotator cuff repair (~01/25/19) Repair of supraspinatus, distal clavicle excision, biceps tenotomy Dr. 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 Family History (Updated 02/10/24 @ 08:35 by Joie Mcdermott RN, RN) Father , 65 from [place] Heart disease Hypertension Myocardial infarction Brother , 83 of leukemia Tremor Leukemia Son Seizure Mother , age 95 Osteoarthritis Daughter Alive and well Social History (Updated 01/29/24 @ 08:44 by Harmony Ambrocio) Smoking/Tobacco Use Status: Former Tobacco Use Quit Date: 09/07/79 Pack-years: 1 Smoking risk assessment performed?: Yes Alcohol Intake: current Alcohol Intake frequency: a few times a week Alcohol type: beer Details: MODERATE 5-7 TIMES PER WEEK Drug use: Never Substance use type: does not use Household members: children Housing: house Number of Children: 2 current occupation: Retired Current gender identity: male What type of physical activity do you participate in: independent ambulation Do you feel safe at home: Yes Do you feel safe in your relationship?: Yes Meds Allergies and Home Medications Allergies Allergy/AdvReac Type Severity Reaction Status Date / Time ceftriaxone Allergy Severe ANAPHYLAXIS Verified 06/09/24 07:22 Cephalosporins Allergy Severe Anaphylaxsi Verified 06/09/24 07:22 s ciprofloxacin AdvReac Dizziness/L Verified 06/09/24 07:22 ightheade fentanyl AdvReac Agitation, Verified 06/09/24 07:22 confusion meperidine HCl (From Demerol) AdvReac vomiting Verified 06/09/24 07:22 morphine AdvReac vomiting Verified 06/09/24 07:22 Home Medications ?Medication ?Instructions ?Recorded ?Confirmed ?Type meclizine 25 mg tablet 25 mg PO Q6H PRN 06/28/20 06/09/24 History diphenhydramine 25 2 tab PO Q4H PRN 07/21/22 06/09/24 History mg-acetaminophen 500 mg tablet (Tylenol PM Extra Strength) simvastatin 10 mg tablet 10 mg PO DAILY 05/06/23 06/09/24 History amoxicillin 500 mg tablet 2,000 mg PO DAILY PRN 05/22/23 06/09/24 History omeprazole 40 mg capsule,delayed 40 mg PO DAILY 05/22/23 06/09/24 History release cyanocobalamin (vitamin B-12) 1,000 mcg PO DAILY 05/25/23 06/09/24 History 1,000 mcg capsule fluoxetine 40 mg capsule 40 mg PO DAILY 05/25/23 06/09/24 History vitamin E (dl, acetate) 180 mg 180 mg PO DAILY 07/07/23 06/09/24 History (400 unit) capsule fluoride (sodium) 1.1 % dental 1 applic dental DAILY 02/10/24 06/09/24 History paste levothyroxine 125 mcg tablet 125 mcg PO DAILY 02/10/24 06/09/24 History Exam Const General: cooperative Neck Neck: normal visual inspection and supple Resp Effort & Inspection: normal respiratory effort Auscultation: clear to auscultation bilaterally Cardio Rate: regular rate Rhythm: regular rhythm GI Palpation: soft and no masses Neuro General: patient alert, patient awake and patient oriented x3 Results Last Vital Signs Temp 36.4 C L 06/09/24 07:07 Pulse 89 06/09/24 07:07 Resp 16 06/09/24 07:07 BP 148/83 H 06/09/24 07:07 Pulse Ox 98 06/09/24 07:07 Time Spent Time spent with Patient: <40 minutes Time was spent: other
[2024-06-09] MEDS: GENTAMICIN 120 MG in Normal Saline 100 ML 206 MG IVPB (09:13)
[2024-06-09] MEDS: Omnipaque 300 MG/ML 50 ML BTL (09:30)
[2024-06-09] MEDS: Lidocaine 2% Jelly 11 ML SYR (09:30)
--- NOTE | 2024-06-09 09:42 | URETHRABX_PTH ---
PATIENT: Arianna Arevalo LOC: [facility] U#:[id number] AGE/SX: 74/M ROOM: RE06/09/[address]: Jose Pham MD : 1950 BED: DIS: 06/09/2024 SPEC #: [id number] RECD: 06/09/24 13:03 STATUS: KELLIEMichael REQ #: [id number] ALBERTO: 06/09/24 09:[address]: Jose Pham DEPT: Surgical Specimen RECD BY: Kiesha Parkinson ENTERED: 06/09/24 13:04 SP TYPE: URETHRABX OTHR DR: Beatriz Cotton V Tissues: 1 - URETHRA BIOPSY Procedures: GROSS AND MICRO LEVEL 4 IMMUNOPEROXIDASE STAIN Comments: [id number]
--- NOTE | 2024-06-09 09:42 | PAPNONF_PTH ---
PATIENT: Arianna Arevalo LOC: [facility] U#:[id number] AGE/SX: 74/M ROOM: RE06/09/[address]: Jose Pham MD : 1950 BED: DIS: 06/09/2024 SPEC #: [id number] RECD: 06/09/24 13:15 STATUS: KELLIEMichael REQ #: [id number] ALBERTO: 06/09/24 09:[address]: Jose Pham DEPT: [facility] Cytology RECD BY: Kiesha Parkinson ENTERED: 06/09/24 13:16 SP TYPE: VALENTINE MCCAIN DR: Beatriz Cotton V Tissues: 1 - BODY FLUID CYTO(SPUTUM/URINE)[facility] Procedures: BODY FLUID CYTO(URINE/SPUTUM) Comments: [id number] (TV = 40 ml, 30 ml CYTOLYT ADDED) (REFRIGERATED)
--- NOTE | 2024-06-09 09:45 | RT.EKG_ITS ---
APPROVED REPORT Exam: Resting ECG Reason for Exam: Irregular EKG possible AFib Patient Location: O HR:73 bpm ECG Measurements Heart Rate 73 AXIS HI [id number] P [id number] QRSd 114 QRS 2 QT 457 T -1 QTc 504 Conclusion Atrial fibrillation...V-rate 69- 80, irreg A-activity Low voltage Otherwise unremarkable
--- NOTE | 2024-06-09 10:01 | W.PM.DSUDISC ---
Date of service: 06/09/24 Time of Service: 10:02 Discharge Plan Disposition Patient Disposition: Home Condition: Stable Discharge Details Reason For Visit: ureteroscopy Attending Provider: Jose Pham Primary Care Provider: Beatriz Cotton V Home Meds and New Rx's Prescriptions: No Action vitamin E (dl, acetate) 180 mg (400 unit) capsule 180 mg PO DAILY meclizine 25 mg Tablet 25 mg PO Q6H PRN Patient Comments: Only for dentist fluoxetine 40 mg capsule 40 mg PO DAILY cyanocobalamin (vitamin B-12) 1,000 mcg capsule 1,000 mcg PO DAILY omeprazole 40 mg capsule,delayed release(DR/EC) 40 mg PO DAILY amoxicillin 500 mg tablet 2,000 mg PO DAILY PRN Rx Instructions: take 4 tablets one hour prior to dental procedure fluoride (sodium) 1.1 % paste 1 applic dental DAILY levothyroxine 125 mcg tablet 125 mcg PO DAILY diphenhydramine-acetaminophen [Tylenol PM Extra Strength] 25-500 mg Tablet 2 tab PO Q4H PRN Rx Instructions: administer while awake simvastatin 10 mg tablet 10 mg PO DAILY Discharge Instructions Additional Instructions: followup 1 to 2 weeks for biopsy results Stand Alone Forms: Anesthesia Discharge Inst., [facility] ([facility]) Activity:: Activity as Tolerated Shower/Bathe:: 24 hours Diet:: As Tolerated Discharge Orders Discharge Orders: Discharge Order (Routine); Ordered 06/09/24 Ordered By: Jose Pham DS: Diagnosis Discharge Diagnosis (1) Gross hematuria: Status: Acute
--- NOTE | 2024-06-09 10:08 | DI.RAD_ITS ---
Exam(s) XR RETROGRADE IN OR EXAM: XR RETROGRADE IN OR CLINICAL HISTORY: GROSS HAEMATURIA TECHNIQUE: 2D and realtime digital imaging was performed. CONTRAST MATERIAL: Refer to procedure report. COMPARISON: No exams were available for comparison FINDINGS: Fluoroscopy was provided for Dr. Pham during the performance of a retrograde evaluation of the andrez l collecting system. Please refer to the procedure report for complete details. Ka,r=3.08 mGy IMPRESSION: RADIATION DOSE DELIVERED: 0.0 1081.0 0
[2024-06-09] MEDS: Phenazopyridine 200 MG TAB PO (11:09)
--- NOTE | 2024-06-09 11:54 | ROE_ITS ---
Date of service: 06/09/24 Time of Service: 11:54 Operative Note Operative Note DATE OF PROCEDURE: 06/09/24 PRE-OP DIAGNOSIS: hematuria POST-OP DIAGNOSIS: same PROCEDURE: cystoscopy, remove bilateral ureteral stents, right retrograde pyelogram, right flexible ureteroscopy with biopsy of renal mass SURGEON: Jose Pham ANESTHESIA TYPE: Local By Surgeon and General LMA/ETT Refer to Anesthesia Record ESTIMATED BLOOD LOSS: 5 PATHOLOGY: other (1. biopsy of renal mass 2. right renal washing for cytology) COMPLICATIONS: None Patient was transported to: PACU Patient's condition: stable Implants: None Indications: This is a 74-year-old gentleman who has a history of gross hematuria. Initially, he had a normal renal ultrasound. He then underwent cystoscopy and bilateral retrograde pyelogram. There appeared to be some filling defects bilaterally. I did bilateral ureteroscopy. The left sided filling defect was simply an air bubble, but the right side seem to have a solid mass near the ureteropelvic junction. I placed bilateral ureteral stents and arranged for a CT scan. Some of the m ucosa at the renal pelvis was thickened. He presents now for removal of both of the stents and repeat ureteroscopy so that I can attempt to obtain biopsies of the renal pelvis Findings: papillary mucosa in right renal pelvis Procedure Description: The patient was given preoperative IV antibiotics. He was brought to the operating room on 06/09/2024. After successful induction of general anesthesia, he was placed in the dorsal lithotomy position. His genitalia was prepped and draped. 2% Xylocaine jelly was instilled into the urethra. A 22 Thai rigid cystoscope was passed through the urethra into the bladder. The urethra and bladder were inspected with the 30 degree lens. The pendulous, bulbar and membranous urethra was all appeared normal with no strictures. The prostatic urethra showed lateral lobe enlargement but no papillary or nodular lesions. The bladder neck was entered and the bladder mucosa was inspected. Stents could be seen protruding from each of the ureteral orifices. I began by grasping and removing the left ureteral stent and that stent was removed in its entirety. On the right side, the stent was again grasped and brought to the level of the urethral meatus. Before removing the stent, I passed a Glidewire through the lumen of the stent and advanced the wire up the remainder of the ureter. Once the wire was in place, the stent was removed. I passed a dual-lumen catheter over the wire and advanced the catheter to the upper ureter. I then injected Omnipaque through the second lumen of the dual- lumen catheter in order to obtain a retrograde pyelogram. There appeared to be a filling defect on the renal pelvis posteriorly. I then passed a second wire through the dual-lumen catheter and removed the catheter leaving the wires in place. One of the wires was chosen as a working wire and the other was chosen as a safety wire. The ureteral access sheath was advanced over the working wire leaving the safety wire in place. I then passed the flexible ureteroscope through the lumen of the ureteral access sheath up to the renal pelvis. As we inspected the pelvis, there appeared to be shaggy, papillary mucosa at the ureteropelvic junction extending back into the renal pelvis. I biopsied multiple areas of the abnormal mucosa using ureteroscopic biopsy forceps. Each of these biopsies yielded very small amount of tissue. The biopsies were sent to pathology for permanent section. I then passed the flexible ureteroscope back up into the renal pelvis and will performed renal pelvic washing with saline. We collected the washings and sent them to pathology for a cytology exam. We elected not to place a ureteral stent back on the right side. The patient tolerated this procedure well with no complications.
--- NOTE | 2024-06-09 11:57 | W.ANESPOSTOP ---
Postoperative Evaluation Date, Time and Location Date Performed: 06/09/24 Time Performed: 11:57 Patient Location: Day Surgery Unit Vital Signs Most Recent Imported Vital Signs: Most Recent Vital Signs Temp Pulse Resp BP Pulse Ox 36.4 C L 74 18 133/66 96 06/09/24 11:20 06/09/24 11:20 06/09/24 11:20 06/09/24 11:20 06/09/24 11:20 Pain Score Most Recent Pain Score: Most Recent Pain Score Pain Level 0 06/09/24 11:20 Assessment Mental Status: Awake (Alert & Oriented to Patient Baseline) Airway and Respiratory Function: Patent airway with normal (patient baseline) respiratory exam Cardiovascular Function: Hemodynamically Stable (Discussed newly found Afib at length and importance of following up with his PCP. All questions answered. ) Hydration Status: Adequately Hydrated Nausea & Vomiting: No Nausea or Vomiting Pain: Pt. Denies Any Pain Peripheral Nerve Block: Patient did not receive a nerve block Postoperative Comments:: Discussed the loss of his front incisor during his extubation. Patient appeared to have bit down hard on OPA. Discussed at length and patient reported that his dentist mentioned a loose tooth last visit.
== END 2024-06-09 12:19 | disposition home or self-care (01) ==
PROVIDERS: PCP Family Medicine; Visit Provider Urology
PROC: (CPT 52354; principal; 2024-06-09 09:15)
DX: R31.0 Gross hematuria; C66.1 Malignant neoplasm of right ureter; C65.1 Malignant neoplasm of right renal pelvis
CPT/HCPCS: 52354; 88305; 74420; 88104; 88361; 93005; 93010; J1580; J2003; J2371; J2704; Q9967

== ENCOUNTER → 2024-06-15 10:32 | Outpatient (BNVA) | payer MEDICARE, SELFPAY | PROVIDERS: PCP Family Medicine; Referring Provider Family Medicine; Visit Provider Student in an Organized Health Care Education/Training Program | DX: M61.412 Other calcification of muscle, left shoulder (principal) | CPT/HCPCS: 99213 ==

== ENCOUNTER 2024-06-20 09:15 | Outpatient (CLI) | payer MEDICARE, SELFPAY ==
--- NOTE | 2024-06-20 14:31 | DI.RAD_ITS ---
Exam(s) XR CHEST 2V PA LATERAL EXAM: XR CHEST 2V PA LATERAL CLINICAL HISTORY: r/o mets, urothelial carcinoma, C68.9. TECHNIQUE: 2D digital imaging was performed. COMPARISON: CR XR PORTABLE CHEST AP from 05/06/[address] ABDOMEN WO/W from 05/05/2024 FINDINGS: 2 views: Heart size is normal. The mediastinum is not widened. Left lung is clear. Right hemidiaphragm again noted be mildly elevated. In the right infrahilar region there is an asymmetric density measuring approximately 2.5 x 1.2 cm, m ore evident than on the prior chest x-ray of April 2023. There is good possibly that this just repr esents asymmetric vascular density but given the history here it might be prudent to perform CT scan. I note that abdominal CT scan performed 05/05/2024 (6 weeks ago) included this area and was negativ e for significant findings on CT. IMPRESSION: Right infrahilar finding as above. If clinically indicated chest CT scan can be performed, given the history here. DATA REPOSITORY: RADIATION DOSE DELIVERED:
== END 2024-06-20 09:35 ==
PROVIDERS: PCP Family Medicine; Visit Provider Urology
DX: C68.9 Malignant neoplasm of urinary organ, unspecified (principal); R93.89 Abnormal findings on diagnostic imaging of other specified body structures
CPT/HCPCS: 71046

== ENCOUNTER → 2024-06-20 12:55 | Outpatient (BNVA) | payer MEDICARE, SELFPAY | PROVIDERS: PCP Family Medicine; Referring Provider Family Medicine; Visit Provider Urology | DX: C65.1 Malignant neoplasm of right renal pelvis | CPT/HCPCS: 99215 ==

== ENCOUNTER 2024-06-22 02:10 | Outpatient (CLI) | payer MEDICARE, SELFPAY ==
--- NOTE | 2024-06-22 07:00 | DI.NM_ITS ---
Exam(s) NM MAG 3 RENOGRAM WO LASIX CLINICAL HISTORY: check differential renal function,urothelial ca,c68.9. COMPARISON: CT,NM,TMT NM MPI REST STRESS GRP from 09/04/[address] ABDOMEN WO/W from 05/05/2024 EXAMINATION: Dose: 10 mCi Tc-99m MAG3 Images: Immediately for 1 minute followed by dynamic for 45 minutes. 40mg Lasix was administered afte r peak uptake in the renal cortex at approximately 15 min. FINDINGS: Time to peak: Right: 4 min (< 5 min normal) Left: 7 min (< 5 min normal) Curve Appearance: Right: T1/2 13.8 min Left: T1/2 20.8 min There is no evidence of obstruction. There is prominence of the left renal collecting system, but th e activity curve show no evidence of obstruction. This likely reflects an extrarenal pelvis. Split renal function: Right: 47.5 % Left: 52.5 % IMPRESSION: 1. No evidence of obstruction. 2. Split function: Right kidney - 47.5 %, left kidney - 52.5 %.
== END 2024-06-22 02:30 ==
PROVIDERS: PCP Family Medicine; Visit Provider Urology
DX: C68.9 Malignant neoplasm of urinary organ, unspecified (principal)
CPT/HCPCS: 78707

== ENCOUNTER 2024-06-28 01:00 | Outpatient (CLI) | payer MEDICARE, SELFPAY ==
--- NOTE | 2024-06-28 06:30 | DI.CT_ITS ---
Exam(s) CT CHEST W EXAM: CT CHEST W CLINICAL HISTORY: ? right hilar mass,UROTHELIAL CA,F/U ABNL CXR,R93.89,C68.9. TECHNIQUE: Multi planar reconstructions were performed. CONTRAST MATERIAL: Omnipaque 350; 75 cc COMPARISON: CT CT NECK CHEST W from 11/20/2022 CR XR CHEST 2V PA LATERAL from 06/20/2024 FINDINGS: CHEST: LUNGS: There are no infiltrates nor ominous pulmonary nodules nor pleural effusions. There does not appear to be a significant mass in the right infrahilar region, suspected from recent chest x-ray of 06/20/2024. No significant findings in the trachea and mainstem bronchi. No bronchiectasis. MEDIASTINUM: There is no hilar nor mediastinal adenopathy. No subcarinal adenopathy. CARDIAC: Heart size is normal. There is no pericardial effusion.Of the ascending thoracic aorta is p rominent, measuring 4 cm. No evidence of dissection. The diameter of the mid aortic arch is upper n ormal. Diameter of the proximal descending thoracic aorta is enlarged, measuring 3 cm. Diameter of the lower descending thoracic aorta is upper normal. There is no evidence of aortic dissection. VISUALIZED UPPER ABDOMEN:There are no significant adrenal masses. OSSEOUS: No significant osseous lesions.. IMPRESSION: 1. No evidence of significant lung mass; specifically no abnormal findings in the right infrahilar re gion which is the area suspect on recent chest x-ray of 06/20/2024 2. Incidentally noted is enlargement of the ascending thoracic aorta which exhibits a diameter of 4 c m. There is no evidence of aortic dissection nor pericardial effusion. RADIATION DOSE DELIVERED: 228.18mGy.cm Total DLP DATA REPOSITORY: All CT scans at this facility are submitted to the National Radiology Data Registry (NRDR) Dose Index Registry (DIR) with the [employer] (ACR). RADIATION OPTIMIZATION: All CT scans at this facility use at least one of these dose optimization te chniques: automated exposure control; mA and/or kV adjustment per patient size (includes targeted exa ms where dose is matched to clinical indication); or iterative reconstruction.
[2024-06-28 09:24] LABS: CREATININE 1.2 mg/dL (0.70-1.30); Estimated GFR 63.07 (mL/min/1.73m2)
[2024-06-28] MEDS: Normal Saline - Diluent 50 ML VIAL IJ (10:11)
[2024-06-28] MEDS: Omnipaque 350 MG/ML 500 ML BTL-Imaging package 70 ML IJ (10:11)
== END 2024-06-28 01:20 ==
PROVIDERS: PCP Family Medicine; Visit Provider Urology
DX: R93.89 Abnormal findings on diagnostic imaging of other specified body structures
CPT/HCPCS: 71260; 82565

== ENCOUNTER → 2024-07-06 10:10 | Outpatient (BNVA) | payer MEDICARE, SELFPAY | PROVIDERS: PCP Family Medicine; Referring Provider Family Medicine; Visit Provider Psychiatry & Neurology Neurology | DX: G20.C Parkinsonism, unspecified (principal); E11.42 Type 2 diabetes mellitus with diabetic polyneuropathy; R29.6 Repeated falls; I67.9 Cerebrovascular disease, unspecified; R42 Dizziness and giddiness | CPT/HCPCS: 99215 ==

== ENCOUNTER 2024-07-22 00:24 | Outpatient (CLI) | payer MEDICARE, SELFPAY ==
--- NOTE | 2024-07-22 | DI.CT_ITS ---
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 TECHNIQUE: Imaging Protocol: Axial computed tomography images with coronal and sagittal reformatted images were created and reviewed CONTRAST MATERIAL: Intravenous: Omnipaque 350 Contrast volume:100 ml contrast COMPARISON: CT CT NECK CHEST W from 11/20/[address] CHEST W from 06/28/2024 FINDINGS: Parotids: Right parotid mildly atrophic. Submandibular glands: Right submandibular gland appears somewhat atrophic. Thyroid gland: Both lobes of the thyroid are small. Right-sided nodule appears unchanged. Unchange d in appearance from prior. Lymph nodes: 6 millimeter lymph node on the right side of the neck containing calcification, this is noted previously and has decreased in size. Carotids arteries: Calcification at the common carotid bulbs and proximal internal carotid arteries. No significant stenosis or dissection. Vertebral arteries: No significant stenosis or dissection. Soft tissues: The floor the mouth is unremarkable. The tonsils and adenoids are unremarkable. The epiglottis is normal limits. Motion at the level of the vocal cords. Lungs: Images through both lung apices are unremarkable. Bones: Degenerative changes of the cervical spine. Visualized portions of the brain and orbits: Unremarkable. Sinuses and mastoids: Clear. IMPRESSION: No evidence of mass. Decreased size of right-sided lymph node with calcification. RADIATION DOSE DELIVERED: 418.42mGy.cm Total DLP DATA REPOSITORY: All CT scans at this facility are submitted to the National Radiology Data Registry (NRDR) Dose Index Registry (DIR) with the [employer] (ACR). RADIATION OPTIMIZATION: All CT scans at this facility use at least one of these dose optimization te chniques: automated exposure control; mA and/or kV adjustment per patient size (includes targeted exa ms where dose is matched to clinical indication); or iterative reconstruction.
[2024-07-22] MEDS: Normal Saline - Diluent 50 ML VIAL IJ (09:39)
== END 2024-07-22 00:44 ==
PROVIDERS: PCP Family Medicine; Visit Provider Nurse Practitioner
DX: C09.9 Malignant neoplasm of tonsil, unspecified (principal); E03.9 Hypothyroidism, unspecified
CPT/HCPCS: 70491

== ENCOUNTER 2024-09-28 00:40 | Outpatient (CLI) | payer MEDICARE, SELFPAY ==
--- NOTE | 2024-09-28 07:30 | DI.US_ITS ---
APPROVED REPORT EXAM: Comprehensive 2D, Doppler, and color-flow Echocardiogram Patient Location: Out-Patient [employer] Operator: Lacy Mcclendon RDCS (AE) Indications: Atrial Fibrillation, Pre operative exam Other Information Study Quality: Adequate Conclusion Mild concentric left ventricular hypertrophy. Ejection fraction is 60%. There are no segmental wall motion abnormalities Normal right ventricular size and function Severely dilated left atrium. Borderline dilated right atrium Trileaflet aortic valve with trace regurgitation Mitral annular calcification. Mild to moderate mitral regurgitation Estimated right ventricular systolic pressure is 29 mmHg Ascending aorta measures 4.09 cm Overall there is no significant change compared to an echocardiogram from May 2023 Wall motion Left Ventricle The left ventricle is normal size. The left ventricular systolic function is normal. The left ventric ular ejection fraction is within the normal range. Mild concentric left ventricular hypertrophy. Ther e is normal LV segmental wall motion. There is no ventricular septal defect visualized. LVEF is 60%. Right Ventricle Right ventricle is grossly normal in size. Right ventricular systolic function is grossly normal. Atria Left atrium is severely dilated. Right atrium is borderline dilated. Aortic Valve The aortic valve is normal in structure. Aortic valve is trileaflet. There is no aortic valvular sten osis. Trace aortic regurgitation. Mitral Valve Mild mitral annular calcification. No evidence of mitral valve stenosis. Mild to moderate mitral reg urgitation. Tricuspid Valve The tricuspid valve is normal in structure. There is no tricuspid valve stenosis. Mild tricuspid regu rgitation. The RVSP is 27.8_ mmHg. Pulmonic Valve The pulmonary valve is normal in structure. There is no pulmonic valvular stenosis. There is no pulmo daja valvular regurgitation. Great Vessels Aortic root is mildly dilated. The ascending aorta is moderately dilated. Aortic arch is not well vi sualized. IVC is normal in size and collapses >50% with inspiration. Pericardium There is no pericardial effusion. 2D Dimensions IVSD d PLAX 1.30 cm M: 0.6-1.2 Ao Root d 3.84 cm M: 3.1 - 3.7 LVPW d PLAX 1.30 cm M: 0.6 - 1.2 Ao Asc Diam d 4.09 cm M: 2.6 - 3.4 LVID d PLAX 5.30 cm M: 4.2 - 5.8 LVDs 3.75 cm M: 2.5 - 4.0 LV EF Teichholz 55.6 % FS 29.20 % LV EDV (Teich) 134.8 mL LV ESV (Teich) 59.9 mL M-Mode TAPSE 2.15 cm (M/F) >1.7 Auto EF LV EDV A4C 124.5 mL LV EDV A2C 121.5 mL LV EDV BP 125.2 mL LV ESV A4C 51.6 mL LV ESV A2C 51.9 mL LV ESV BP 52.6 mL LVEF(%) A4C 58.5 % LVEF(%) A2C 57.3 % LVEF(%) BP 58.0 % LV SV A4C 72.9 ml LV SV A2C 69.6 ml LV SV BP 72.6 ml LV CO A4C 6.8 L/min LV CO A2C 5.4 L/min LV CO BP 6.1 L/min HR A4C 93.76 BPM HR A2C 76.92 BPM LV EDV Index (BP) LA Volume LA Length A4C 6.3 cm LA Length A2C 6.3 cm LA Area A4C s 29.55 cm2 LA Area A2C s 31.01 cm2 LA Vol A4C A-L 117.82 mL LA Vol A2C A-L 129.39 mL LA Vol Biplane A-L 123.6 mL LA Vol/BSA A4C A-L LA Vol/BSA A2C A-L LA Vol/BSA BP A-L 58.6 mL/m2 LA Vol A4C MOD 107.7 mL LA Vol A2C MOD 120.4 mL LA Vol BP MOD 113.7 mL RA Volume RA Area A4C 16.1 cm2 RA ESV A4C (A-L) 43.8mL RA Vol/BSA A4C A-L RA Length A4C 5.0 cm RA ESV A4C (MOD) 44.4mL LV Diastology MV E' medial 0.058 (>0.07 m/s) MV E Vmax 0.84 (0.4-1.3 m/s) MV E/E' MED 14.61 (<14) MV E' lateral 0.123 (>0.1 m/s) MV E/E' LAT 6.85 (<14) MV E' Average 0.090 m/s MV E/E'(average) 9.33 Aortic Valve AoV Vmax 1.10 m/s LVOT Vmax 0.83 m/s AoV Peak Grad 4.8 mmHg LVOT Peak Grad 2.8 mmHg AoV Area (Vmax) 2.68 cm2 LVOT VTI 0.149 m AoV VTI 0.221 m LVOT Mean Grad 1.3 mmHg AoV Mean Sarwat. 0.81 m/s LVOT SV 52.59 mL AoV Mean Grad 2.9 mmHg LVOT Diam s 2.10 cm AoV Area (VTI) 2.38 cm2 AV Regurg Peak Gr. 4.80 mmHg Velocity Ratio 0.75 Mitral Valve MV DT 301 (160-240 msec) MR Vmax 0.98 m/s MR VTI 0.194 m MR Peak Grad 3.8 mmHg MR Mean Grad 1.4 mmHg Pulmonary Valve PV Vmax 0.85 (0.5-1.5 m/s) RVOT Vmax 0.79 m/s PV Peak Grad 2.9 mmHg RVOT Peak Gr. 2.5 mmHg PV Mean Sarwat 0.63 m/s RVOT VTI 0.151 m PV Mean Grad 1.8 mmHg RVOT Mean Gr. 1.3 mmHg Tricuspid Valve RA Pressure 3.00 mmHg TR Vmax 2.49 m/s TV S' 0.16 m/s TR Peak Grad 24.8 mmHg RVSP (TR) 27.8 mmHg
== END 2024-09-28 01:00 ==
PROVIDERS: PCP Family Medicine; Visit Provider Internal Medicine Cardiovascular Disease
DX: I51.7 Cardiomegaly (principal); Z01.818 Encounter for other preprocedural examination
CPT/HCPCS: 93306

== ENCOUNTER → 2024-11-09 14:40 | Outpatient (BNVA) | payer MEDICARE, SELFPAY | PROVIDERS: PCP Family Medicine; Referring Provider Family Medicine; Visit Provider Psychiatry & Neurology Neurology | DX: G20.C Parkinsonism, unspecified (principal); M21.371 Foot drop, right foot; G25.0 Essential tremor; E11.42 Type 2 diabetes mellitus with diabetic polyneuropathy; R29.6 Repeated falls; I67.9 Cerebrovascular disease, unspecified; R42 Dizziness and giddiness | CPT/HCPCS: 99214 ==

== ENCOUNTER 2024-11-29 01:43 | Outpatient (RCR) | payer MEDICARE, SELFPAY ==
[2024-11-08 09:02] LABS: Abs Immature Grans 0.07 10^3/uL (0.0-0.06); Absolute Eosinophil Count 0.12 10^3/uL (0.0-0.7); Absolute Monocyte Count 0.74 10^3/uL (0.1-0.8); Basophils % 0.3 %; HCT 38.2 % (40.0-50.0); HGB 11.9 g/dL (13.5-17.5); Immature Grans % 0.6 %; Lymphocytes % 3.4 %; MCH 29.4 pg (27.0-33.0); MCHC 31.2 % (32.0-36.0); MCV 94 fL (80-95); MPV 9.4 fL (8.0-11.0); Monocytes % 6.2 %; Neutrophils % 88.5 %; Platelet Count 535 10^3/uL (130-400); RBC 4.05 10^6/uL (4.36-5.78); RDW 14.1 % (11.8-14.1); RDW-SD 48.4 fL; WBC 11.91 10^3/uL (4.4-10.8)
[2024-11-08 09:05] LABS: Absolute Basophil Count 0.04 10^3/uL (0.0-0.2); Absolute Neutrophil Count 10.54 10^3/uL (1.2-6.7)
[2024-11-08] MEDS: Normal Saline Flush 10 ML SYR IVP (09:29)
[2024-11-08 09:39] LABS: ALT 30 U/L (16-63); AST 18 U/L (15-37); Albumin 2.4 g/dL (3.4-5.0); Alkaline Phosphatase 121 U/L (46-116); Anion Gap 8.2 mmol/L (3-11); BUN 25 mg/dL (7-18); Bilirubin, Total 0.46 mg/dL (0.2-1.0); CO2 27.8 mmol/L (21.0-32.0); CREATININE 1.4 mg/dL (0.70-1.30); Calcium 8.9 mg/dL (8.5-10.1); Chloride 104 mmol/L (98-107); Estimated GFR 52.41 (mL/min/1.73m2); Glucose 210 mg/dL (74-106); Potassium 3.8 mmol/L (3.5-5.1); Sodium 140 mmol/L (136-145); TSH 1.48 uIU/mL (0.36-3.74)
[2024-11-08 17:51] LABS: T4, Free 1.1 ng/dL (0.8-2.2)
[2024-11-09 10:10] LABS: Hemoglobin A1C 7.4 % (<5.7)
[2024-11-15] MEDS: Normal Saline Flush 10 ML SYR IVP (08:25)
[2024-11-15 08:45] LABS: Abs Immature Grans 0.04 10^3/uL (0.0-0.06); Absolute Basophil Count 0.02 10^3/uL (0.0-0.2); Absolute Eosinophil Count 0.07 10^3/uL (0.0-0.7); Absolute Lymphocyte Count 0.33 10^3/uL (1.2-3.4); Absolute Monocyte Count 0.73 10^3/uL (0.1-0.8); Absolute Neutrophil Count 8.31 10^3/uL (1.2-6.7); Basophils % 0.2 %; Eosinophils % 0.7 %; HCT 36.9 % (40.0-50.0); HGB 11.4 g/dL (13.5-17.5); Immature Grans % 0.4 %; Lymphocytes % 3.5 %; MCH 29.1 pg (27.0-33.0); MCHC 30.9 % (32.0-36.0); MCV 94 fL (80-95); MPV 9.3 fL (8.0-11.0); Monocytes % 7.7 %; Neutrophils % 87.5 %; Platelet Count 403 10^3/uL (130-400); RBC 3.92 10^6/uL (4.36-5.78); RDW 14.6 % (11.8-14.1); RDW-SD 50.4 fL
[2024-11-15 09:15] LABS: ALT 22 U/L (16-63); AST 15 U/L (15-37); Albumin 2.3 g/dL (3.4-5.0); Alkaline Phosphatase 133 U/L (46-116); Anion Gap 8.3 mmol/L (3-11); BUN 25 mg/dL (7-18); Bilirubin, Total 0.5 mg/dL (0.2-1.0); CO2 27.7 mmol/L (21.0-32.0); CREATININE 1.3 mg/dL (0.70-1.30); Calcium 8.6 mg/dL (8.5-10.1); Chloride 103 mmol/L (98-107); Estimated GFR 57.29 (mL/min/1.73m2); Glucose 221 mg/dL (74-106); Potassium 4.1 mmol/L (3.5-5.1); Sodium 139 mmol/L (136-145); TSH 0.72 uIU/mL (0.36-3.74); Total Protein 6.7 g/dL (6.4-8.2)
[2024-11-15 18:29] LABS: T4, Free 1.1 ng/dL (0.8-2.2)
[2024-11-29] MEDS: Normal Saline Flush 10 ML SYR IVP (08:26)
[2024-11-29 08:32] LABS: Abs Immature Grans 0.01 10^3/uL (0.0-0.06); Absolute Basophil Count 0.03 10^3/uL (0.0-0.2); Absolute Eosinophil Count 0.12 10^3/uL (0.0-0.7); Absolute Lymphocyte Count 0.34 10^3/uL (1.2-3.4); Absolute Monocyte Count 0.46 10^3/uL (0.1-0.8); Absolute Neutrophil Count 5.54 10^3/uL (1.2-6.7); Basophils % 0.5 %; Eosinophils % 1.8 %; HCT 36.7 % (40.0-50.0); HGB 11.1 g/dL (13.5-17.5); Immature Grans % 0.2 %; Lymphocytes % 5.2 %; MCH 29.4 pg (27.0-33.0); MCHC 30.2 % (32.0-36.0); MCV 97 fL (80-95); Monocytes % 7.1 %; Neutrophils % 85.2 %; Platelet Count 438 10^3/uL (130-400); RBC 3.78 10^6/uL (4.36-5.78); RDW 16.5 % (11.8-14.1); RDW-SD 57.4 fL
[2024-11-29 08:53] LABS: ALT 25 U/L (16-63); AST 17 U/L (15-37); Albumin 2.8 g/dL (3.4-5.0); Alkaline Phosphatase 89 U/L (46-116); Anion Gap 6.4 mmol/L (3-11); BUN 16 mg/dL (7-18); Bilirubin, Total 0.3 mg/dL (0.2-1.0); CO2 30.6 mmol/L (21.0-32.0); CREATININE 1.2 mg/dL (0.70-1.30); Calcium 8.9 mg/dL (8.5-10.1); Chloride 106 mmol/L (98-107); Estimated GFR 63.07 (mL/min/1.73m2); Glucose 152 mg/dL (74-106); Sodium 143 mmol/L (136-145); TSH 5.93 uIU/mL (0.36-3.74); Total Protein 6.7 g/dL (6.4-8.2)
[2024-11-29 18:11] LABS: T4, Free 0.7 ng/dL (0.8-2.2)
== END 2024-12-05 23:59 | disposition home or self-care (01) ==
LOC: INF 01:43
PROVIDERS: PCP Family Medicine; Visit Provider Internal Medicine
DX: C79.10 Secondary malignant neoplasm of unspecified urinary organs (principal); E11.649 Type 2 diabetes mellitus with hypoglycemia without coma; E03.9 Hypothyroidism, unspecified
CPT/HCPCS: 36591; 80053; 83036; 84439; 84443; 85025

== ENCOUNTER 2024-11-29 11:50 | Outpatient (CLI) | payer MEDICARE, SELFPAY ==
--- NOTE | 2024-11-29 | DI.US_ITS ---
Exam(s) US LOWER EXTREMITY VENOUS RT EXAM: US LOWER EXTREMITY VENOUS RT CLINICAL HISTORY: Swelling, R60.9; metastatic urothelial carcinoma, C79.10 TECHNIQUE: Grayscale, color, and doppler imaging of the deep venous system of the lower extremity w as performed. COMPARISON: US US ECHOCARDIOGRAM from 09/28/2024 FINDINGS: There is no evidence of intraluminal thrombus and there is normal compression and augmentation demons trated within the common femoral vein, femoral vein, and popliteal vein. In the ipsilateral calf there is both occlusive and nonocclusive thrombus within the paired posterior tibial veins throughout the length of the calf with clot length of 14 cm IMPRESSION: 1. Positive study for DVT in the right calf involving the paired posterior tibial veins. Clot lengt h is 14 cm but does not extend into the popliteal vein at the knee level. DATA REPOSITORY:
== END 2024-11-29 12:10 ==
LOC: DI 11:51
PROVIDERS: PCP Family Medicine; Visit Provider Nurse Practitioner
DX: I82.441 Acute embolism and thrombosis of right tibial vein (principal)
CPT/HCPCS: 93971

== ENCOUNTER 2024-12-27 08:15 | Outpatient (RCR) | payer MEDICARE, SELFPAY ==
[2024-12-06] MEDS: Normal Saline Flush 10 ML SYR IVP (08:16)
[2024-12-06 08:37] LABS: Abs Immature Grans 0.01 10^3/uL (0.0-0.06); Absolute Basophil Count 0.02 10^3/uL (0.0-0.2); Absolute Eosinophil Count 0.08 10^3/uL (0.0-0.7); Absolute Lymphocyte Count 0.39 10^3/uL (1.2-3.4); Basophils % 0.4 %; Eosinophils % 1.7 %; HCT 39.7 % (40.0-50.0); HGB 12.2 g/dL (13.5-17.5); Immature Grans % 0.2 %; Lymphocytes % 8.5 %; MCH 29.8 pg (27.0-33.0); MCHC 30.7 % (32.0-36.0); MCV 97 fL (80-95); MPV 9.4 fL (8.0-11.0); Monocytes % 10.9 %; Neutrophils % 78.3 %; Platelet Count 374 10^3/uL (130-400); RBC 4.09 10^6/uL (4.36-5.78); RDW 16.6 % (11.8-14.1); RDW-SD 59.2 fL
[2024-12-06 09:03] LABS: ALT 19 U/L (16-63); AST 15 U/L (15-37); Alkaline Phosphatase 96 U/L (46-116); Anion Gap 9.9 mmol/L (3-11); BUN 20 mg/dL (7-18); Bilirubin, Total 0.8 mg/dL (0.2-1.0); CO2 27.1 mmol/L (21.0-32.0); CREATININE 1.4 mg/dL (0.70-1.30); Calcium 9.1 mg/dL (8.5-10.1); Chloride 104 mmol/L (98-107); Estimated GFR 52.41 (mL/min/1.73m2); FREE T4 0.82 ng/dL (0.76-1.46); Glucose 168 mg/dL (74-106); Sodium 141 mmol/L (136-145); TSH 4.32 uIU/mL (0.36-3.74)
[2024-12-20] MEDS: Normal Saline Flush 10 ML SYR IVP (08:15)
[2024-12-20 08:37] LABS: Abs Immature Grans 0.02 10^3/uL (0.0-0.06); Absolute Basophil Count 0.02 10^3/uL (0.0-0.2); Absolute Eosinophil Count 0.17 10^3/uL (0.0-0.7); Absolute Lymphocyte Count 0.45 10^3/uL (1.2-3.4); Absolute Monocyte Count 0.53 10^3/uL (0.1-0.8); Absolute Neutrophil Count 4.15 10^3/uL (1.2-6.7); Basophils % 0.4 %; Eosinophils % 3.2 %; HCT 40.9 % (40.0-50.0); HGB 12.6 g/dL (13.5-17.5); Immature Grans % 0.4 %; Lymphocytes % 8.4 %; MCHC 30.8 % (32.0-36.0); MCV 97 fL (80-95); MPV 9.7 fL (8.0-11.0); Monocytes % 9.9 %; Neutrophils % 77.7 %; Platelet Count 371 10^3/uL (130-400); RDW 16.8 % (11.8-14.1); WBC 5.34 10^3/uL (4.4-10.8)
[2024-12-20 09:01] LABS: ALT 17 U/L (16-63); AST 15 U/L (15-37); Albumin 3.3 g/dL (3.4-5.0); Alkaline Phosphatase 86 U/L (46-116); Anion Gap 7.1 mmol/L (3-11); BUN 19 mg/dL (7-18); Bilirubin, Total 0.4 mg/dL (0.2-1.0); CO2 27.9 mmol/L (21.0-32.0); CREATININE 1.2 mg/dL (0.70-1.30); Chloride 104 mmol/L (98-107); Estimated GFR 63.07 (mL/min/1.73m2); FREE T4 0.74 ng/dL (0.76-1.46); Glucose 193 mg/dL (74-106); Potassium 4.1 mmol/L (3.5-5.1); Sodium 139 mmol/L (136-145); TSH 2.39 uIU/mL (0.36-3.74)
[2024-12-27 08:42] LABS: Abs Immature Grans 0.02 10^3/uL (0.0-0.06); Absolute Basophil Count 0.03 10^3/uL (0.0-0.2); Absolute Eosinophil Count 0.13 10^3/uL (0.0-0.7); Absolute Lymphocyte Count 0.37 10^3/uL (1.2-3.4); Absolute Monocyte Count 0.57 10^3/uL (0.1-0.8); Basophils % 0.6 %; Eosinophils % 2.4 %; HCT 41.7 % (40.0-50.0); HGB 12.8 g/dL (13.5-17.5); Immature Grans % 0.4 %; MCHC 30.7 % (32.0-36.0); MCV 98 fL (80-95); MPV 9.9 fL (8.0-11.0); Monocytes % 10.7 %; Neutrophils % 78.9 %; Platelet Count 329 10^3/uL (130-400); RBC 4.27 10^6/uL (4.36-5.78); RDW 16.5 % (11.8-14.1); RDW-SD 59.7 fL; WBC 5.32 10^3/uL (4.4-10.8)
[2024-12-27] MEDS: Normal Saline Flush 10 ML SYR IVP (08:54)
[2024-12-27 09:12] LABS: ALT 18 U/L (16-63); AST 15 U/L (15-37); Albumin 3.2 g/dL (3.4-5.0); Alkaline Phosphatase 78 U/L (46-116); Anion Gap 6.2 mmol/L (3-11); BUN 20 mg/dL (7-18); Bilirubin, Total 0.4 mg/dL (0.2-1.0); CO2 27.8 mmol/L (21.0-32.0); CREATININE 1.3 mg/dL (0.70-1.30); Calcium 8.9 mg/dL (8.5-10.1); Chloride 106 mmol/L (98-107); Estimated GFR 57.29 (mL/min/1.73m2); Glucose 188 mg/dL (74-106); Sodium 140 mmol/L (136-145); TSH 4.06 uIU/mL (0.36-3.74); Total Protein 6.7 g/dL (6.4-8.2)
== END 2025-01-04 23:59 | disposition home or self-care (01) ==
LOC: INF 08:15
PROVIDERS: PCP Family Medicine; Visit Provider Internal Medicine
DX: C79.10 Secondary malignant neoplasm of unspecified urinary organs (principal); E03.9 Hypothyroidism, unspecified; Z45.2 Encounter for adjustment and management of vascular access device
CPT/HCPCS: 36591; 80053; 84439; 84443; 85025

== ENCOUNTER 2025-02-01 01:00 | Outpatient (RCR) | payer MEDICARE, SELFPAY ==
[2025-01-10 08:30] LABS: Abs Immature Grans 0.02 10^3/uL (0.0-0.06); Absolute Basophil Count 0.03 10^3/uL (0.0-0.2); Absolute Eosinophil Count 0.23 10^3/uL (0.0-0.7); Absolute Lymphocyte Count 0.38 10^3/uL (1.2-3.4); Absolute Monocyte Count 0.53 10^3/uL (0.1-0.8); Absolute Neutrophil Count 5.22 10^3/uL (1.2-6.7); Basophils % 0.5 %; Eosinophils % 3.6 %; HCT 41.9 % (40.0-50.0); Immature Grans % 0.3 %; Lymphocytes % 5.9 %; MCH 30.2 pg (27.0-33.0); MCV 97 fL (80-95); MPV 9.4 fL (8.0-11.0); Monocytes % 8.3 %; Neutrophils % 81.4 %; Platelet Count 345 10^3/uL (130-400); RDW 16.3 % (11.8-14.1); RDW-SD 58.6 fL; WBC 6.41 10^3/uL (4.4-10.8)
[2025-01-10 09:01] LABS: ALT 17 U/L (16-63); AST 14 U/L (15-37); Albumin 3.4 g/dL (3.4-5.0); Alkaline Phosphatase 83 U/L (46-116); BUN 23 mg/dL (7-18); Bilirubin, Total 0.5 mg/dL (0.2-1.0); CREATININE 1.2 mg/dL (0.70-1.30); Calcium 9.1 mg/dL (8.5-10.1); Chloride 105 mmol/L (98-107); Estimated GFR 63.07 (mL/min/1.73m2); FREE T4 0.82 ng/dL (0.76-1.46); Glucose 162 mg/dL (74-106); Potassium 4.1 mmol/L (3.5-5.1); Sodium 140 mmol/L (136-145); TSH 3.81 uIU/mL (0.36-3.74); Total Protein 7.1 g/dL (6.4-8.2)
[2025-01-10] MEDS: Normal Saline Flush 10 ML SYR IVP (12:23)
[2025-01-17] MEDS: Normal Saline Flush 10 ML SYR IVP (08:38)
[2025-01-17 08:54] LABS: Abs Immature Grans 0.01 10^3/uL (0.0-0.06); Absolute Basophil Count 0.02 10^3/uL (0.0-0.2); Absolute Eosinophil Count 0.16 10^3/uL (0.0-0.7); Absolute Lymphocyte Count 0.42 10^3/uL (1.2-3.4); Absolute Monocyte Count 0.55 10^3/uL (0.1-0.8); Absolute Neutrophil Count 4.17 10^3/uL (1.2-6.7); Basophils % 0.4 %; HCT 42.3 % (40.0-50.0); HGB 13.5 g/dL (13.5-17.5); Immature Grans % 0.2 %; Lymphocytes % 7.9 %; MCH 30.3 pg (27.0-33.0); MCHC 31.9 % (32.0-36.0); MCV 95 fL (80-95); MPV 9.8 fL (8.0-11.0); Monocytes % 10.3 %; Neutrophils % 78.2 %; Platelet Count 365 10^3/uL (130-400); RBC 4.46 10^6/uL (4.36-5.78); RDW 15.9 % (11.8-14.1); RDW-SD 56.5 fL; WBC 5.33 10^3/uL (4.4-10.8)
[2025-01-17 09:23] LABS: ALT 12 U/L (16-63); AST 15 U/L (15-37); Albumin 3.3 g/dL (3.4-5.0); Alkaline Phosphatase 84 U/L (46-116); Anion Gap 5.9 mmol/L (3-11); BUN 24 mg/dL (7-18); Bilirubin, Total 0.5 mg/dL (0.2-1.0); CO2 27.1 mmol/L (21.0-32.0); CREATININE 1.1 mg/dL (0.70-1.30); Calcium 9.4 mg/dL (8.5-10.1); Chloride 105 mmol/L (98-107); Estimated GFR 70.01 (mL/min/1.73m2); FREE T4 1.04 ng/dL (0.76-1.46); Glucose 187 mg/dL (74-106); Potassium 3.8 mmol/L (3.5-5.1); Sodium 138 mmol/L (136-145); TSH 1.05 uIU/mL (0.36-3.74); Total Protein 7.1 g/dL (6.4-8.2)
[2025-02-01] MEDS: Normal Saline Flush 10 ML SYR IVP (08:24)
[2025-02-01 08:55] LABS: Abs Immature Grans 0.03 10^3/uL (0.0-0.06); Absolute Basophil Count 0.02 10^3/uL (0.0-0.2); Absolute Lymphocyte Count 0.45 10^3/uL (1.2-3.4); Absolute Monocyte Count 0.66 10^3/uL (0.1-0.8); Absolute Neutrophil Count 7.37 10^3/uL (1.2-6.7); Basophils % 0.2 %; Eosinophils % 1.2 %; HCT 42.9 % (40.0-50.0); HGB 13.6 g/dL (13.5-17.5); Immature Grans % 0.3 %; Lymphocytes % 5.2 %; MCH 30.3 pg (27.0-33.0); MCHC 31.7 % (32.0-36.0); MCV 96 fL (80-95); MPV 9.8 fL (8.0-11.0); Monocytes % 7.6 %; Neutrophils % 85.5 %; Platelet Count 371 10^3/uL (130-400); RBC 4.49 10^6/uL (4.36-5.78); RDW 15.7 % (11.8-14.1); RDW-SD 55.2 fL; WBC 8.63 10^3/uL (4.4-10.8)
[2025-02-01 09:08] LABS: ALT 16 U/L (16-63); AST 16 U/L (15-37); Albumin 3.4 g/dL (3.4-5.0); Alkaline Phosphatase 83 U/L (46-116); Anion Gap 8.3 mmol/L (3-11); BUN 21 mg/dL (7-18); Bilirubin, Total 0.3 mg/dL (0.2-1.0); CO2 28.7 mmol/L (21.0-32.0); CREATININE 1.1 mg/dL (0.70-1.30); Calcium 8.9 mg/dL (8.5-10.1); Chloride 104 mmol/L (98-107); Estimated GFR 70.01 (mL/min/1.73m2); FREE T4 0.93 ng/dL (0.76-1.46); Glucose 161 mg/dL (74-106); Sodium 141 mmol/L (136-145); TSH 1.15 uIU/mL (0.36-3.74); Total Protein 7.1 g/dL (6.4-8.2)
== END 2025-02-04 23:59 | disposition home or self-care (01) ==
LOC: INF 01:00
PROVIDERS: PCP Family Medicine; Visit Provider Internal Medicine
DX: C79.10 Secondary malignant neoplasm of unspecified urinary organs (principal); E03.9 Hypothyroidism, unspecified; Z45.2 Encounter for adjustment and management of vascular access device
CPT/HCPCS: 36591; 80053; 84439; 84443; 85025

== ENCOUNTER 2025-02-05 11:10 | Emergency (ER) | payer MEDICARE, SELFPAY ==
[2025-02-05] VITALS (31 sets, daily range): BP systolic 102–148; BP diastolic 46–90; PULSE 60–83; RESP 11–25; TEMP 36.4; O2SAT 95–98
--- NOTE | 2025-02-05 11:15 | RT.EKG_ITS ---
APPROVED REPORT Exam: Resting ECG Reason for Exam: abd pain Patient Location: E HR:78 bpm ECG Measurements Heart Rate 78 AXIS OK [id number] P [id number] QRSd 108 QRS -48 QT 454 T 39 QTc 518 Conclusion Atrial fibrillation 78 no stemi
--- NOTE | 2025-02-05 11:15 | DI.CT_ITS ---
Exam(s) CT ABDOMEN PELVIS W EXAM: CT ABDOMEN PELVIS W CLINICAL HISTORY: abd pain. TECHNIQUE: Imaging Protocol: Axial computed tomography images with coronal and sagittal reformatted images were created and reviewed CONTRAST MATERIAL: Intravenous: Omnipaque-350 100cc Oral: None COMPARISON: CT CT ABDOMEN WO/W from 05/05/2024 FINDINGS: VISUALIZED LUNG BASES: There are new nodular densities in both lung bases/basal segments of both lowe r lobes which were not evident on the CT scan of April 2024. A few of these appear cystic, largest of these measuring 8 mm in the lateral basal segment of the left lower lobe. The largest new nodular infiltrate is in the medial aspect of the right lower lobe measuring 1.4 by 0.6 cm. There are no pl eural effusions.. ABDOMEN: There is no ascites. LIVER: There are no focal hepatic lesions evident. There are a few minimally dilated intrahepatic du cts. CBD diameter is normal. GALLBLADDER/BILIARY: Gallbladder is surgically absent CBD is not dilated. PANCREAS: No evidence of pancreatic mass nor dilatation of the pancreatic duct. SPLEEN: Spleen is not enlarged. No obvious intrasplenic lesions. Splenic and portal veins are paten t. ADRENALS: Left adrenal gland unremarkable. There is haziness around the right adrenal and right kidn ey. KIDNEYS:Left kidney unremarkable with the exception of a benign cyst in the inferior pole measuring 3 cm, this not requiring further workup. A smaller cortical cyst measuring less than 1 cm is seen in the lateral cortex of the left kidney. No calculi nor hydronephrosis of the left kidney. No solid m ass in the left kidney. With respect of the right kidney, there is a double pigtail right ureteral stent extending from the r enal pelvis into the urinary bladder, similar to previous. However, there is significant increase in inflammatory-type streaking around the right renal pelvis and upper ureter and in the perinephric sp marek with additional thickening of Gerotas fascia around the right kidney.. Urinary bladder is partia lly obscured by beam hardening artifact from left hip prosthesis but is not dilated no obvious radiop aque calculi in the nondistended urinary bladder. No obvious bladder mass. ABDOMINAL AORTA: Aorta and common iliac arteries are calcified but not enlarged. LYMPH NODES:There is no retroperitoneal nor paraaortic adenopathy. ABDOMINAL WALL: No evidence of anterior abdominal wall hernia. There is right inguinal fat containin g hernia. GI: There is no evidence of bowel obstruction, free air, nor abscess. PELVIS: GI: No evidence of appendicitis.No evidence of sigmoid diverticulitis. LYMPH NODES: There is no intrapelvic nor inguinal adenopathy. REPRODUCTIVE: Prostate size upper normal. Seminal vesicles unremarkable. URINARY BLADDER: As above. OSSEOUS: Left hip prosthesis. No fractures. No significant osseous lesions evident. Chronic disc s pace narrowing L5-S1 level. No listhesis at this level but there is some mild degenerative anterolis thesis L3 upon L4 and retrolisthesis of L1 and L2. IMPRESSION: 1. Compared to the prior CT scan of April 2024 the left ureteral stent has been removed and the left kidney appears unremarkable. Right ureteral stent remains in place and there is inflammatory-type s treaking evident around the right renal pelvis and proximal half of the right ureter as well as in th e perinephric space and there is unilateral right-sided thickening of perinephric Gerotas fascia. 2. With the exception of the lower pigtail of the right ureteral stent there are no obvious findings in the nondistended urinary bladder although the bladder is partially obscured by beam hardening art ifact from a left hip prosthesis. 3. There are new cystic nodular densities in both lung bases as well as a new non-cystic 14 x 6 mm no dule in the right lung base. These findings are either infectious or neoplastic in etiology. There are no associated pleural effusions. Preliminary virtual Radiology report was reviewed. RADIATION DOSE DELIVERED: 637.59mGy.cm Total DLP DATA REPOSITORY: All CT scans at this facility are submitted to the National Radiology Data Registry (NRDR) Dose Index Registry (DIR) with the [employer] (ACR). RADIATION OPTIMIZATION: All CT scans at this facility use at least one of these dose optimization te chniques: automated exposure control; mA and/or kV adjustment per patient size (includes targeted exa ms where dose is matched to clinical indication); or iterative reconstruction.
--- NOTE | 2025-02-05 11:34 | ED.GENADUL_ITS ---
Discharge Plan Disposition Patient Disposition: Home Discharge Details Clinical Impression: Abdominal pain Primary Care Provider: Beatriz Cotton V ED Provider: Juice Lehman Home Meds and New Rx's Prescriptions: No Action vitamin E (dl, acetate) 180 mg (400 unit) capsule 180 mg PO DAILY melatonin 3 mg tablet 3 mg PO HS PRN omeprazole 40 mg capsule,delayed release(DR/EC) 40 mg PO DAILY tamsulosin 0.4 mg capsule 0.4 mg PO DAILY oxycodone 5 mg tablet 5 mg PO Q4H MDD 6 tabs PRN (Reason: pain) Qty: 60 0RF Rx Instructions: palliative care patient for cancer related pain Eliquis 5 mg tablet 5 mg PO BID trazodone 50 mg tablet 25 - 50 mg PO QHS meclizine 25 mg Tablet 25 mg PO Q6H PRN Patient Comments: Only for dentist fluoxetine 40 mg capsule 40 mg PO DAILY cyanocobalamin (vitamin B-12) 1,000 mcg capsule 1,000 mcg PO DAILY amoxicillin 500 mg tablet 2,000 mg PO DAILY PRN Rx Instructions: take 4 tablets one hour prior to dental procedure fluoride (sodium) 1.1 % paste 1 applic dental DAILY levothyroxine 125 mcg tablet 125 mcg PO DAILY simvastatin 10 mg tablet 10 mg PO DAILY Discharge Instructions Additional Instructions: Your lab work looks good today. No concerns for neutropenia. Your magnesium was slightly low but it has been replaced via IV. Your CT scan was concerning for some stranding around the right kidney, but your urinalysis does not reveal any signs of infection. Please follow-up closely with your urologist. Your CT scan does show some abnormalities in the base of your lungs and they should be followed by your cancer team. It seems like these might have been seen previously though I cannot tell based on the scans from today. Continue nausea medication as you need. Make sure you are drinking lots of fluids. If your symptoms of vomiting and diarrhea continue, Please return to the emergency department. HPI General Date/Time Provider Initiated Documentation: 02/05/25 11:26 . Limitations to Documentation: no limitations . Information obtained by: patient and family . HPI Narrative: 74-year-old gentleman with past medical history of metastatic prostate cancer, currently on immune and chemotherapy, diabetes, Parkinson's presents for evaluation of vomiting and diarrhea. The patient reports that his symptoms started last night, he went to a friend's for dinner but did not have an appetite and so only had an ice tea. When he came home he had several episodes of nonbilious nonbloody vomiting. This morning he had some diarrhea that was also soft, nonbloody. He denies any fever. He reports some generalized abdominal pain. He took an antinausea pill which she reports resolved his symptoms of nausea and he has not had any additional episodes of vomiting. Last chemotherapy was on Thursday. Related Data Home Medications ?Medication ?Instructions ?Recorded ?Confirmed meclizine 25 mg tablet 25 mg PO Q6H PRN 06/28/20 02/05/25 simvastatin 10 mg tablet 10 mg PO DAILY 05/06/23 02/05/25 amoxicillin 500 mg tablet 2,000 mg PO DAILY PRN 05/22/23 02/05/25 cyanocobalamin (vitamin B-12) 1,000 mcg PO DAILY 05/25/23 02/05/25 1,000 mcg capsule fluoxetine 40 mg capsule 40 mg PO DAILY 05/25/23 02/05/25 vitamin E (dl, acetate) 180 mg 180 mg PO DAILY 07/07/23 02/05/25 (400 unit) capsule fluoride (sodium) 1.1 % dental 1 applic dental DAILY 02/10/24 02/05/25 paste levothyroxine 125 mcg tablet 125 mcg PO DAILY 02/10/24 02/05/25 melatonin 3 mg tablet 3 mg PO HS PRN 11/09/24 02/05/25 omeprazole 40 mg capsule,delayed 40 mg PO DAILY 11/09/24 02/05/25 release tamsulosin 0.4 mg capsule 0.4 mg PO DAILY 11/09/24 02/05/25 oxycodone 5 mg tablet 5 mg PO Q4H PRN pain #60 tabs 11/24/24 02/05/25 apixaban 5 mg tablet (Eliquis) 5 mg PO BID 01/05/25 02/05/25 trazodone 50 mg tablet 25 - 50 mg PO QHS 01/05/25 02/05/25 Previous Rx's ?Medication ?Instructions ?Recorded oxycodone 5 mg tablet 5 mg PO Q4H PRN pain #60 tabs 11/24/24 Allergies Allergy/AdvReac Type Severity Reaction Status Date / Time ceftriaxone Allergy Severe ANAPHYLAXIS Verified 02/05/25 11:17 Cephalosporins Allergy Severe Anaphylaxsi Verified 02/05/25 11:17 s ciprofloxacin AdvReac Dizziness/L Verified 02/05/25 11:17 ightheade fentanyl AdvReac Agitation, Verified 02/05/25 11:17 confusion meperidine HCl (From Demerol) AdvReac vomiting Verified 02/05/25 11:17 morphine AdvReac vomiting Verified 02/05/25 11:17 General Stated Complaint: Abd Prob CASIMIRO: 3 Exam Narrative Exam Narrative: Review of Systems: All systems reviewed & are unremarkable except as noted in HPI and below Well-developed, no acute distress Afebrile NCAT Moist mucous membranes A-fib no murmur port in right upper chest wall Unlabored respiratory effort, clear bilaterally Nondistended abdomen , soft nontender No lower extremity edema No rashes or lesions. no focal neurologic deficits Appropriate mood and affect Course Vital Signs Vital signs: Vital Signs Temperature 36.4 C 02/05/25 11:12 Pulse 82 02/05/25 11:12 Respiratory Rate 16 02/05/25 11:12 Blood Pressure 131/90 02/05/25 11:12 Pulse Oximetry 95 02/05/25 11:12 Temperature 36.4 C 02/05/25 11:12 Temperature Source Oral 02/05/25 11:12 Pulse 82 02/05/25 11:12 Respiratory Rate 16 02/05/25 11:12 Blood Pressure 131/90 02/05/25 11:12 Blood Pressure Position Sitting 02/05/25 11:12 Pulse Oximetry 95 02/05/25 11:12 Oxygen Delivery Method Room Air 02/05/25 11:12 Oxygen Flow Rate 0 02/05/25 11:12 Pain Level 8 02/05/25 11:12 Medical Decision Making Emergent evaluation of vomiting diarrhea and abdominal pain. Patient is on chemotherapy, last dose 5 days ago. No fevers or symptoms concerning for sepsis. His abdominal exam is benign. He has not had any additional vomiting since last night. Initial differential includes viral illness, chemotherapy s adam effect, less likely typhlitis. Plan for lab work, CT imaging. EKG obtained and reviewed: A-fib 78 normal axis no STEMI Lab work reviewed, patient has a normal WBC. No signs of neutropenia or l eukocytosis. No anemia. His magnesium level slightly low at 1.6 and this was repleted via IV infusion. Otherwise electrolytes are unremarkable. Troponin x 2 has been negative but I do not suspect a cardiac etiology of the patient's symptoms. He had a CT scan that I discussed with V rad radiologist. There is some concern for possible perinephric stranding on the right kidney where there is a stent noted. Urinalysis was obtained and there is no sign of infection there I suspect that the stranding is just nonspecific at this time. Patient has close follow-up with urology scheduled. She is also noted to have some lesions in the base of the lung which do not seem to be present on prior examinations.. Unclear etiology of these, recommend that the patient follow closely with his oncology team for monitoring of these. At this time he is no pulmonary complaints concerning for an acute etiology. Patient has nausea medication at home. He is discharged in good condition recommend close follow- up with team and return precautions advised. 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, secondary (Acute) Cancer, metastatic to lung (Acute) Urothelial cancer (Acute) Foot drop, right (Acute) Vertigo (Acute) Cerebrovascular disease (Acute) Parkinsonism (Acute) Frequent falls (Acute) Urothelial carcinoma (Acute) Other calcification of muscle, left shoulder (Acute) Gross hematuria (Acute) Hematoma of abdominal wall (Acute) post-op Recurrent simple right inguinal hernia (Acute) Atopic dermatitis (Acute) Contact dermatitis (Acute) Lightheadedness (Acute) Sensorineural hearing loss (Acute) Tubular adenoma of colon (Acute) Hypomagnesemia (Acute) Hypoglycemia (Acute) Dysphagia (Chronic) IDDM (insulin dependent diabetes mellitus) (Chronic) no longer has diabetes due to weight loss and diet control 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 (Acute) Squamous cell carcinoma of tonsil (Acute) Cervical lymphadenopathy (Acute) Tonsillar mass (Acute) Unintentional weight loss (Acute) Chest pain (Acute) Sleep apnea (Acute) Asthma (Chronic) Medical History Tonsillar cancer Hx of, treated with chemoradiation At risk for aspiration RSI intubation, OGT placed, awake extubation and noted to have bile around 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 Presence of total knee joint prosthesis Vitamin D deficiency High arbovirus antibody titer Mild intermittent asthma Abnormal weight loss Lumbosacral radiculopathy Pyogenic bacterial arthritis of knee Primary malignant neoplasm of tonsil Umbilical hernia Right inguinal hernia recurrent Repaired Jun 2022, [place] Anemia Osteoarthritis of left knee Chondromalacia patellae of left knee Obesity Diverticulosis Colon polyps Trigeminy History of tobacco use Shoulder pain, left HTN (hypertension) Per pt. 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) Essential tremor (11/21/14) Hyperlipemia Depression Surgical History S/P inguinal hernia repair using synthetic patch (~07/08/23) recurrent right inguinal hernia S/P inguinal hernia repair using synthetic patch (~06/09/22) and umbilical hernia History of total left hip replacement (09/02/19) Trochanteric bursitis, left hip S/P debridement with IT band lengthenin08/12/2021 History of total left knee replacement (10/02/20) Hx of colonoscopy (~07/2022) Hx of total knee arthroplasty Right Status post right rotator cuff repair (~01/25/19) Repair of supraspinatus, distal clavicle excision, biceps tenotomy Dr. 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 Family History Father , 65 from [place] Heart disease Hypertension Myocardial infarction Brother , 83 of leukemia Tremor Leukemia Son Seizure Mother , age 95 Osteoarthritis Daughter Alive and well Social History Smoking/Tobacco Use Status: Former Tobacco Use Quit Date: 01/01/80 Pack-years: 1 Smoking risk assessment performed?: Yes Alcohol Intake: current Alcohol Intake frequency: a few times a week Alcohol type: beer Details: MODERATE 5-7 TIMES PER WEEK Drug use: Never Substance use type: does not use Household members: children Housing: house Number of Children: 2 current occupation: Retired Current gender identity: male What type of physical activity do you participate in: independent ambulation Do you feel safe at home: Yes Do you feel safe in your relationship?: Yes
[2025-02-05 11:49] LABS: Abs Immature Grans 0.02 10^3/uL (0.0-0.06); Absolute Basophil Count 0.02 10^3/uL (0.0-0.2); Absolute Eosinophil Count 0.04 10^3/uL (0.0-0.7); Absolute Lymphocyte Count 0.36 10^3/uL (1.2-3.4); Absolute Monocyte Count 0.67 10^3/uL (0.1-0.8); Absolute Neutrophil Count 6.59 10^3/uL (1.2-6.7); Basophils % 0.3 %; Eosinophils % 0.5 %; HGB 14.7 g/dL (13.5-17.5); Immature Grans % 0.3 %; Lymphocytes % 4.7 %; MCH 30.1 pg (27.0-33.0); MCV 94 fL (80-95); MPV 9.5 fL (8.0-11.0); Monocytes % 8.7 %; Neutrophils % 85.5 %; Platelet Count 393 10^3/uL (130-400); RBC 4.89 10^6/uL (4.36-5.78); RDW 15.3 % (11.8-14.1); RDW-SD 53.1 fL
[2025-02-05] MEDS: Normal Saline - Diluent 50 ML VIAL IJ (12:01)
[2025-02-05] MEDS: Omnipaque 350 MG/ML 100 ML BTL IJ (12:02)
[2025-02-05 12:06] LABS: ALT 22 U/L (16-63); AST 22 U/L (15-37); Albumin 3.3 g/dL (3.4-5.0); Alkaline Phosphatase 96 U/L (46-116); Anion Gap 9.4 mmol/L (3-11); BUN 26 mg/dL (7-18); Bilirubin, Total 0.5 mg/dL (0.2-1.0); CO2 28.6 mmol/L (21.0-32.0); CREATININE 1.2 mg/dL (0.70-1.30); Calcium 9.2 mg/dL (8.5-10.1); Chloride 101 mmol/L (98-107); Estimated GFR 63.07 (mL/min/1.73m2); Glucose 169 mg/dL (74-106); Magnesium 1.6 mg/dL (1.8-2.4); Sodium 139 mmol/L (136-145); Total Protein 7.3 g/dL (6.4-8.2); Troponin I 7 ng/L (<or=76)
[2025-02-05] MEDS: Lactated Ringers 1,000 ML 1000 ML IV (12:35)
[2025-02-05 13:07] LABS: Troponin I 7 ng/L (<or=76)
--- NOTE | 2025-02-05 13:19 | DI.VRAD_ITS ---
Addendum created by Logan Beltran MD on 02/05/2025 1:19:56 PM EDT: Addendum: Results are discussed with the ordering physician, Dr. Lehman, on February 05, 2025 at 10:10 a.m. [facility]. Initial report created on 02/05/2025 1:19:07 PM EDT: PROCEDURE INFORMATION: Exam: CT Abdomen And Pelvis With Contrast Exam date and time: 02/05/2025 12:00 PM Age: 74 years old Clinical indication: Abdominal pain TECHNIQUE: Imaging protocol: Computed tomography of the abdomen and pelvis with contrast. Contrast material: OMNIPAQUE 350; Contrast volume: 100 ml; Contrast route: INTRAVENOUS (IV); COMPARISON: CT ABDOMEN WO/W 05/05/2024 12:14 PM FINDINGS: Lungs: Since the abdomen CT scan of May 05, 2024 there are new small subcentimeter cystic lesions in both lung bases. The largest measures 8 mm in the left lower lobe. There is also an ill-defined airspace density in the posterior segment of the right lower lobe that measures 6 x 12 mm. These may be of infectious as well as neoplastic etiology. Heart: The heart is mildly enlarged. There is diffuse coronary artery calcification. Liver: Liver shows no abnormal focal lesion. There is a small focus of low-density adjacent to the falciform ligament which typically represents a benign process such as focal steatosis or remnants of the umbilical vessels. The portal vein is patent. Gallbladder and biliary ducts: There has been a prior cholecystectomy. Pancreas: Pancreas is mildly atrophic. No mass or inflammatory process. Spleen: The spleen is not enlarged. No focal lesion. Adrenal glands: The adrenal glands are unremarkable. Kidneys and ureters: Right kidney: There is redemonstration of a right double-J ureteral stent. It is in good position. There is no right-sided hydronephrosis or obvious stone along its course. Since the examination of May 05, 2024 there is moderate increased stranding in the right perinephric space. Etiology of this is undetermined. No focal fluid collection is evident. This may be secondary to a developing underlying inflammatory or infectious process of the kidney. The kidney does not have a striated appearance as may be seen with pyelonephritis but this is not excluded. Left kidney: The left kidney is unobstructed. There is a 2.9 cm simple cyst in the inferior pole with a Hounsfield density measurement of 11. There is a 2nd subcentimeter cyst in the upper pole that is too small to accurately characterize. Stomach and bowel: The stomach is mildly distended. There is dilatation of the duodenal as it abuts the right perinephric space. This may represent reactive inflammatory change in the duodenum adjacent to the abnormal right perinephric space. No small bowel obstruction. No inflammatory process of the sigmoid colon. Appendix: The appendix is normal Intraperitoneal space: No free air or free fluid Vasculature: The abdominal aorta shows moderate calcification without aneurysm or dissection. Lymph nodes: No abnormal para-aortic adenopathy Urinary bladder: The bladder shows no obvious mass lesions. The patient does have a clinical history of bladder carcinoma. Reproductive: The prostate gland measures 2.8 cm AP x 3.9 cm transverse. Bones/joints: There are moderate degenerative changes throughout the lumbar spine without acute bony change. Soft tissues: No abnormal soft tissue lesions of the abdominal wall. IMPRESSION: 1. New perinephric stranding around the right kidney since the prior study of May 05, 2024. Etiology of this is undetermined but may represent underlying renal infection or developing pyelonephritis. No obstruction is identified with a double-J ureteral stent in place. 2. Dilatation of the duodenal as it abuts the right perinephric space which may represent reactive inflammation this might be better evaluated by upper endoscopy or an upper GI series. 3. Simple cysts of the left kidney unchanged. 4. No gross mass lesion within the urinary bladder but given the clinical history of prior bladder carcinoma further evaluation by cystoscopy may be helpful. 5. New subcentimeter cystic lesions and single small airspace density which may be infectious or neoplastic in etiology. Dictated and Authenticated by: Logan Beltran MD. Orderin Dominik Tran MD
[2025-02-05] MEDS: MAGNESIUM SULFATE 2 GM/50 ML BAG IVINF (13:25)
[2025-02-05 13:45] LABS: Bilirubin Negative (Negative); Blood Moderate (Negative); Clarity Clear (Clear); Glucose Negative (Negative); Ketones Negative (Negative); Leukocyte Esterase Negative (Negative); Nitrite Negative (Negative)
[2025-02-05 13:52] LABS: Bacteria Few HPF (Negative); Casts Negative LPF (Negative); Crystals Negative HPF (Negative); Epithelial Cells Rare HPF (Negative); Mucus Negative (Negative); WBC 0-2 HPF (0-5)
[2025-02-05 13:53] LABS: C & S Indicated? No
== END 2025-02-05 14:42 | disposition home or self-care (01) ==
PROVIDERS: Emergency Provider Emergency Medicine; PCP Family Medicine
DX: R10.9 Unspecified abdominal pain (principal); R11.2 Nausea with vomiting, unspecified
CPT/HCPCS: 36415; 80053; 93005; 96361; 96365; 99284; 74177; 81003; 81015; 83735; 84484; 85025; 93010; J3475; J3490

== ENCOUNTER → 2025-02-08 10:46 | Outpatient (BNVA) | payer MEDICARE, SELFPAY | PROVIDERS: PCP Family Medicine; Visit Provider Psychiatry & Neurology Neurology | DX: G25.0 Essential tremor (principal); E11.42 Type 2 diabetes mellitus with diabetic polyneuropathy; R29.6 Repeated falls; G20.C Parkinsonism, unspecified; I67.9 Cerebrovascular disease, unspecified; R42 Dizziness and giddiness; M21.371 Foot drop, right foot; E11.59 Type 2 diabetes mellitus with other circulatory complications; I10 Essential (primary) hypertension | CPT/HCPCS: 99213 ==

== ENCOUNTER 2025-02-12 09:31 | Inpatient (IN) | payer MEDICARE, SELFPAY ==
[2025-02-12] VITALS (61 sets, daily range): BP systolic 103–162; BP diastolic 52–98; PULSE 60–94; RESP 11–23; TEMP 36.4–36.9; O2SAT 96–98
--- NOTE | 2025-02-12 09:45 | RT.EKG_ITS ---
APPROVED REPORT Exam: Resting ECG Reason for Exam: n/v Patient Location: E HR:80 bpm ECG Measurements Heart Rate 80 AXIS SD [id number] P [id number] QRSd 113 QRS -37 QT 406 T -1 QTc 468 Conclusion Atrial fibrillation...V-rate 67-105, irreg A-activity Low voltage, extremity leads...all extremity leads <0.5mV
--- NOTE | 2025-02-12 09:45 | DI.CT_ITS ---
Exam(s) CT ABDOMEN PELVIS W EXAM: CT ABDOMEN PELVIS W CLINICAL HISTORY: n/v, ?bowel obstruction TECHNIQUE: Imaging Protocol: Axial computed tomography images with coronal and sagittal reformatted images were created and reviewed. CONTRAST MATERIAL: Intravenous: Omnipaque 350 Contrast volume:75 mL Oral: No CT CT ABDOMEN PELVIS W from 02/05/2025 FINDINGS: There is artifact in the pelvis secondary to the patient's left total hip arthroplasty. ABDOMEN: Lung Bases: Coronary artery calcifications are present. The cystic changes in the lung bases persist . Liver: Normal density. There is a subtle round hypodensity in the left lobe of the liver (series 8, i mage 35). It measures 1.1 cm. The possibility of a hepatic metastasis should be considered. Portal, Superior Mesenteric, and Splenic Veins: Unremarkable. Gallbladder and Biliary Tract: Status post cholecystectomy. No biliary ductal dilatation. Pancreas: Normal density, no abnormal calcifications or inflammatory process. Spleen: Normal. Adrenals: No masses seen. Kidneys: Normal size, contour and axis. There is again seen a nephroureteral stent in the right kidne y. The stent appears in good position. There is asymmetry in the enhancement of the kidneys. There is delayed enhancement seen in the right kidney. There is perinephric stranding around the right ki dney. This shows minimal if any worsening compared to the prior examination. No focal fluid collect ion is seen to suggest an abscess. The collecting system is not distended. There are simple cysts s een in the left kidney. No follow-up is recommended. The left kidney shows no evidence of nephrolit hiasis or hydronephrosis. Abdominal Aorta: Abdominal portion non-dilated. Atherosclerotic calcification is present. Bowel: There is diverticulosis seen in the colon without evidence of acute diverticulitis. There is marked distension of the stomach to the level of the 1st segment of the duodenum. There is questiona ble thickening of the wall of the proximal duodenum. The distal duodenum, small bowel and colon are of normal caliber. Appendix is unremarkable. Peritoneal Cavity: No ascites, collection or mesenteric inflammatory response. No free air. Lymph Nodes: Within normal limits. Bones: Within normal limits for the patient's age. Soft Tissues: Unremarkable. PELVIS: Bladder: Symmetric distention, no gross wall thickening. Reproductive Organs: Unremarkable as visualized. Lymph Nodes: Within normal limits. Bones: Within normal limits for the patient's age. IMPRESSION: 1. Marked distension of the stomach to the level of the proximal duodenum. Question of thickening of the 1st portion of the duodenum. Gastric outlet obstruction should be considered. Follow-up with u pper endoscopy and/or upper GI barium examination is recommended. 2. Persistent perinephric infiltration of the right kidney. There is delayed enhancement of the righ t kidney. There is a right nephroureteral stent which is in stable position. Differential considera tions include obstruction or infection. Delayed imaging through the renal collecting system followin g contrast administration should be considered for further evaluation. 3. Stable appearance of the lung bases. No new infiltrates are seen. 4. Subtle 1.1 cm hypodensity in the left lobe of the liver suspicious for metastatic disease. 5. Colonic diverticulosis without evidence of acute diverticulitis. RADIATION DOSE DELIVERED: 475.72mGy.cm Total DLP DATA REPOSITORY: All CT scans at this facility are submitted to the National Radiology Data Registry (NRDR) Dose Index Registry (DIR) with the [employer] (A[employer]). RADIATION OPTIMIZATION: All CT scans at this facility use at least one of these dose optimization te chniques: automated exposure control; mA and/or kV adjustment per patient size (includes targeted exa ms where dose is matched to clinical indication); or iterative reconstruction.
--- NOTE | 2025-02-12 09:53 | ED.GENADUL_ITS ---
Discharge Plan Disposition Patient Disposition: Admit to [facility] Condition: Stable Discharge Details Chief Complaint: Nausea/Vomit/Diar Clinical Impression: Abdominal pain, Gastric outlet obstruction Primary Care Provider: Beatriz Cotton V ED Provider: Chapincito Vang Home Meds and New Rx's Prescriptions: No Action vitamin E (dl, acetate) 180 mg (400 unit) capsule 180 mg PO DAILY melatonin 3 mg tablet 3 mg PO HS PRN omeprazole 40 mg capsule,delayed release(DR/EC) 40 mg PO DAILY tamsulosin 0.4 mg capsule 0.4 mg PO DAILY oxycodone 5 mg tablet 5 mg PO Q4H MDD 6 tabs PRN (Reason: pain) Qty: 60 0RF Rx Instructions: palliative care patient for cancer related pain Eliquis 5 mg tablet 5 mg PO BID trazodone 50 mg tablet 25 - 50 mg PO QHS meclizine 25 mg Tablet 25 mg PO Q6H PRN Patient Comments: Only for dentist fluoxetine 40 mg capsule 40 mg PO DAILY cyanocobalamin (vitamin B-12) 1,000 mcg capsule 1,000 mcg PO DAILY amoxicillin 500 mg tablet 2,000 mg PO DAILY PRN Rx Instructions: take 4 tablets one hour prior to dental procedure fluoride (sodium) 1.1 % paste 1 applic dental DAILY levothyroxine 125 mcg tablet 125 mcg PO DAILY simvastatin 10 mg tablet 10 mg PO DAILY HPI General Mode of arrival: ambulatory . Date/Time Provider Initiated Documentation: 02/12/25 09:34 . Limitations to Documentation: no limitations . Information obtained by: patient . History of Present Illness 74 year old M presents to the emergency department with the chief complaint of n/v, described as moderate, Patient started experiencing this week(s) (2) and it has been intermittent. No relieving factors improve symptom(s), No exacerbating factors reported . Patient notes denies chest pain and shortness of breath. Patient did receive the following treatments prior to arrival, none Related Data Home Medications ?Medication ?Instructions ?Recorded ?Confirmed meclizine 25 mg tablet 25 mg PO Q6H PRN 06/28/20 02/12/25 simvastatin 10 mg tablet 10 mg PO DAILY 05/06/23 02/12/25 amoxicillin 500 mg tablet 2,000 mg PO DAILY PRN 05/22/23 02/12/25 cyanocobalamin (vitamin B-12) 1,000 mcg PO DAILY 05/25/23 02/12/25 1,000 mcg capsule fluoxetine 40 mg capsule 40 mg PO DAILY 05/25/23 02/12/25 vitamin E (dl, acetate) 180 mg 180 mg PO DAILY 07/07/23 02/12/25 (400 unit) capsule fluoride (sodium) 1.1 % dental 1 applic dental DAILY 02/10/24 02/12/25 paste levothyroxine 125 mcg tablet 125 mcg PO DAILY 02/10/24 02/12/25 melatonin 3 mg tablet 3 mg PO HS PRN 11/09/24 02/12/25 omeprazole 40 mg capsule,delayed 40 mg PO DAILY 11/09/24 02/12/25 release tamsulosin 0.4 mg capsule 0.4 mg PO DAILY 11/09/24 02/12/25 oxycodone 5 mg tablet 5 mg PO Q4H PRN pain #60 tabs 11/24/24 02/12/25 apixaban 5 mg tablet (Eliquis) 5 mg PO BID 01/05/25 02/12/25 trazodone 50 mg tablet 25 - 50 mg PO QHS 01/05/25 02/12/25 Previous Rx's ?Medication ?Instructions ?Recorded oxycodone 5 mg tablet 5 mg PO Q4H PRN pain #60 tabs 11/24/24 Allergies Allergy/AdvReac Type Severity Reaction Status Date / Time ceftriaxone Allergy Severe ANAPHYLAXIS Verified 02/12/25 09:42 Cephalosporins Allergy Severe Anaphylaxsi Verified 02/12/25 09:42 s ciprofloxacin AdvReac Dizziness/L Verified 02/12/25 09:42 ightheade fentanyl AdvReac Agitation, Verified 02/12/25 09:42 confusion meperidine HCl (From Demerol) AdvReac vomiting Verified 02/12/25 09:42 morphine AdvReac vomiting Verified 02/12/25 09:42 General Stated Complaint: Nausea/Vomit/Diar CASIMIRO: 3 Review of Systems All systems reviewed & are unremarkable except as noted in HPI and below Constitutional Constitutional: Denies chills, Denies fever(s) and Denies weakness Cardiovascular Cardiovascular: Denies chest pain and Denies dyspnea Respiratory Respiratory: Denies cough and Denies dyspnea Gastrointestinal Gastrointestinal: Reports abdominal pain, Reports nausea and Reports vomiting Neurologic Neurologic: Denies weakness Exam Const General: no acute distress Orientation: alert HENVT Head: normal to inspection Ears: external ears normal General nose exam: external nose normal Mouth: moist mucous membranes Eyes General: appearance normal, both eyes and all related structures Neck Neck: normal visual inspection Resp Effort & Inspection: normal respiratory effort and able to speak in complete sentences Auscultation: clear to auscultation bilaterally Cardio Rate: regular rate GI Palpation: soft, not firm, no guarding and tender Skin General skin exam: no rashes or lesions noted Neuro General: patient alert and patient oriented x3 Extrem General: normal to inspection Psych Mental Status: mental status grossly normal Course Vital Signs Vital signs: Vital Signs Temperature 36.4 C 02/12/25 09:36 Pulse 94 H 02/12/25 09:36 Respiratory Rate 18 02/12/25 09:36 Blood Pressure 138/84 02/12/25 09:36 Pulse Oximetry 98 02/12/25 09:36 Temperature 36.4 C 02/12/25 09:36 Temperature Source Oral 02/12/25 09:36 Pulse 94 H 02/12/25 09:36 Respiratory Rate 18 02/12/25 09:36 Blood Pressure 138/84 02/12/25 09:36 Blood Pressure Position Sitting 02/12/25 09:36 Pulse Oximetry 98 02/12/25 09:36 Oxygen Delivery Method Room Air 02/12/25 09:36 Oxygen Flow Rate 0 02/12/25 09:36 Pain Level 8 02/12/25 09:36 Medical Decision Making 74-year-old male with metastatic right renal pelvis cancer, afib, comes in with nausea vomiting intermittently for 2 weeks. Says he has not had a bowel movement in 2 days. Has intermittent lower abdominal discomfort. Denies any severe pain, no chest pain though he does have some acid reflux but denies any now. He is well-appearing on exam. Oriented x 4, clear lung sounds, abdomen is soft and nondistended with mild tenderness in the lower quadrants. Given the nausea vomiting I will proceed with CBC, CMP lipase and give IV fluids for possible dehydration and also obtain a CT abdomen pelvis to evaluate for possible etiology such as SBO. He has no chest pain but given his age and the nausea vomiting I will check an EKG and troponins. 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 Kidney also shows evidence of continued streaking. UA does show evidence of UTI, he has a ceftriaxone allergy and the Cipro sensitivity so we will treat with Zosyn. I discussed the case with Dr. Mckeon who advised he could do a palliative procedure here. I discussed the case with the patient as well and he requested that I discussed the case with [facility] to see if they have any other interventions they could offer him that we can not offer him here. I spoke with Dr. Kitty Mckeon from surgical oncology who reviewed labs and imaging and feels he could potentially offer other procedures for this and accepted to their facility but unfurunately they can't accept until 1-2 days. I spoke with the hospitalist who agrees with admission Medical Records Medical records reviewed: Yes I reviewed the patient's medical records. Lab Data Lab results reviewed: Yes I reviewed the patient's lab results. ECG Data Attestation: I personally reviewed and interpreted this ECG (s) as follows: Prior ECG tracings: available for review Interpretation: afib rate of 80 no stemi Quality:SDOH Health Related Social Needs: No Data to Display PFSH All Active Problems (Updated 02/12/25 @ 15:53 by Chapincito Vang MD) Gastric outlet obstruction (Acute) Abdominal pain (Acute) Abdominal pain (Acute) Cancer-related pain (Acute) 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, secondary (Acute) Cancer, metastatic to lung (Acute) Urothelial cancer (Acute) Foot drop, right (Acute) Vertigo (Acute) Cerebrovascular disease (Acute) Parkinsonism (Acute) Frequent falls (Acute) Urothelial carcinoma (Acute) Other calcification of muscle, left shoulder (Acute) Gross hematuria (Acute) Hematoma of abdominal wall (Acute) post-op Recurrent simple right inguinal hernia (Acute) Atopic dermatitis (Acute) Contact dermatitis (Acute) Lightheadedness (Acute) Sensorineural hearing loss (Acute) Tubular adenoma of colon (Acute) Hypomagnesemia (Acute) Hypoglycemia (Acute) Dysphagia (Chronic) IDDM (insulin dependent diabetes mellitus) (Chronic) no longer has diabetes due to weight loss and diet control 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 (Acute) Squamous cell carcinoma of tonsil (Acute) Cervical lymphadenopathy (Acute) Tonsillar mass (Acute) Unintentional weight loss (Acute) Chest pain (Acute) Sleep apnea (Acute) Asthma (Chronic) Medical History Tonsillar cancer Hx of, treated with chemoradiation At risk for aspiration RSI intubation, OGT placed, awake extubation and noted to have bile around 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 Presence of total knee joint prosthesis Vitamin D deficiency High arbovirus antibody titer Mild intermittent asthma Abnormal weight loss Lumbosacral radiculopathy Pyogenic bacterial arthritis of knee Primary malignant neoplasm of tonsil Umbilical hernia Right inguinal hernia recurrent Repaired Jun 2022, Mckeon Anemia Osteoarthritis of left knee Chondromalacia patellae of left knee Obesity Diverticulosis Colon polyps Trigeminy History of tobacco use Shoulder pain, left HTN (hypertension) Per pt. 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) Essential tremor (11/21/14) Hyperlipemia Depression Surgical History S/P inguinal hernia repair using synthetic patch (~07/08/23) recurrent right inguinal hernia S/P inguinal hernia repair using synthetic patch (~06/09/22) and umbilical hernia History of total left hip replacement (09/02/19) Trochanteric bursitis, left hip S/P debridement with IT band lengthenin08/12/2021 History of total left knee replacement (10/02/20) Hx of colonoscopy (~07/2022) Hx of total knee arthroplasty Right Status post right rotator cuff repair (~01/25/19) Repair of supraspinatus, distal clavicle excision, biceps tenotomy Dr. 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 Family History Father , 65 from [place] Heart disease Hypertension Myocardial infarction Brother , 83 of leukemia Tremor Leukemia Son Seizure Mother , age 95 Osteoarthritis Daughter Alive and well Social History Smoking/Tobacco Use Status: Former Tobacco Use Quit Date: 09/07/79 Pack-years: 1 Smoking risk assessment performed?: Yes Alcohol Intake: current Alcohol Intake frequency: a few times a week Alcohol type: beer Details: MODERATE 5-7 TIMES PER WEEK Drug use: Never Substance use type: does not use Household members: children Housing: house Number of Children: 2 current occupation: Retired Current gender identity: male What type of physical activity do you participate in: independent ambulation Do you feel safe at home: Yes Do you feel safe in your relationship?: Yes
[2025-02-12] MEDS: Normal Saline 1,000 ML 1000 ML IV ×2 (10:10→12:24)
[2025-02-12] MEDS: Ondansetron 4 MG/2 ML VIAL IVP ×2 (10:10→12:02)
[2025-02-12 10:30] LABS: Abs Immature Grans 0.04 10^3/uL (0.0-0.06); Absolute Basophil Count 0.01 10^3/uL (0.0-0.2); Absolute Eosinophil Count 0.04 10^3/uL (0.0-0.7); Absolute Lymphocyte Count 0.27 10^3/uL (1.2-3.4); Absolute Monocyte Count 0.65 10^3/uL (0.1-0.8); Basophils % 0.1 %; Eosinophils % 0.5 %; HCT 44.1 % (40.0-50.0); HGB 14.3 g/dL (13.5-17.5); Immature Grans % 0.5 %; Lymphocytes % 3.1 %; MCHC 32.4 % (32.0-36.0); MCV 93 fL (80-95); MPV 9.6 fL (8.0-11.0); Monocytes % 7.5 %; Neutrophils % 88.3 %; Platelet Count 373 10^3/uL (130-400); RBC 4.76 10^6/uL (4.36-5.78); RDW 14.6 % (11.8-14.1); RDW-SD 49.7 fL; WBC 8.71 10^3/uL (4.4-10.8)
[2025-02-12 10:50] LABS: ALT 20 U/L (16-63); AST 16 U/L (15-37); Albumin 3.1 g/dL (3.4-5.0); Alkaline Phosphatase 89 U/L (46-116); Anion Gap 8.6 mmol/L (3-11); BUN 29 mg/dL (7-18); Bilirubin, Total 0.6 mg/dL (0.2-1.0); CO2 25.4 mmol/L (21.0-32.0); CREATININE 1.1 mg/dL (0.70-1.30); Calcium 8.9 mg/dL (8.5-10.1); Chloride 102 mmol/L (98-107); Estimated GFR 70.01 (mL/min/1.73m2); Glucose 146 mg/dL (74-106); Lipase 29 U/L (<78); Magnesium 1.8 mg/dL (1.8-2.4); Potassium 3.9 mmol/L (3.5-5.1); Sodium 136 mmol/L (136-145); Total Protein 6.9 g/dL (6.4-8.2); Troponin I 10 ng/L (<or=76)
[2025-02-12] MEDS: Normal Saline - Diluent 50 ML VIAL IJ (11:16)
[2025-02-12] MEDS: Omnipaque 350 MG/ML 100 ML BTL 75 ML IJ (11:17)
[2025-02-12] MEDS: Pantoprazole 40 MG VIAL IVP (11:46)
[2025-02-12] MEDS: Mylanta Suspension 30 ML CUP PO (11:46)
[2025-02-12 11:53] LABS: Troponin I 9 ng/L (<or=76)
[2025-02-12] MEDS: ACETAMINOPHEN 1,000 MG/100 ML BTL 400 MG IVPB (12:02)
[2025-02-12] MEDS: Dexamethasone 10 MG/ML VIAL IVP (12:13)
[2025-02-12 12:58] LABS: Bilirubin Negative (Negative); Blood Large (Negative); Clarity Cloudy (Clear); Glucose Negative (Negative); Ketones 15 mg/dL (Negative); Leukocyte Esterase Trace (Negative); Nitrite Negative (Negative); Specific Gravity 1.015 (1.005-1.025); Urobilinogen 0.2 mg/dL (Up to 0.2); pH 5.5 (5-8)
[2025-02-12 13:05] LABS: Bacteria Moderate HPF (Negative); Epithelial Cells Rare HPF (Negative); RBC >50 HPF (0-2)
[2025-02-12 13:06] LABS: C & S Indicated? Yes; Casts Negative LPF (Negative); Crystals Negative HPF (Negative); Mucus Negative (Negative)
--- NOTE | 2025-02-12 13:12 | W.SURGCON ---
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 I don't think this is a resectable lesion. Surgical options for palliation of the symptoms would be gastrostomy tube which would be for venting of gas and fluids when symtoms arise or creation of a gastrojejunosomty to bypass the obstruction. It is important to note however, that those should alleviate nause and bloating symptoms, pain for spread of disease in the retroperitoneum is still liely and I suspect that this will eventually obstruct the bilary tree as well, which will likely result in obstructive jaundice and pancreatitis. History of Present Illness History of Present Illness Chief Complaint: Abdominal pain with nausea and vomiting PFSH All Active Problems (Updated 02/12/25 @ 17:33 by Sergio Kothari) Pyuria (Acute) Palliative care patient (Acute) Atrial fibrillation (Chronic) DVT (deep venous thrombosis) (Chronic) Gastric outlet obstruction (Acute) Abdominal pain (Acute) Abdominal pain (Acute) Cancer-related pain (Acute) 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, secondary (Acute) Cancer, metastatic to lung (Acute) Urothelial cancer (Acute) Foot drop, right (Acute) Vertigo (Acute) Cerebrovascular disease (Acute) Parkinsonism (Acute) Frequent falls (Acute) Urothelial carcinoma (Acute) Other calcification of muscle, left shoulder (Acute) Gross hematuria (Acute) Hematoma of abdominal wall (Acute) post-op Recurrent simple right inguinal hernia (Acute) Atopic dermatitis (Acute) Contact dermatitis (Acute) Lightheadedness (Acute) Sensorineural hearing loss (Acute) Tubular adenoma of colon (Acute) Hypomagnesemia (Acute) Hypoglycemia (Acute) Dysphagia (Chronic) IDDM (insulin dependent diabetes mellitus) (Chronic) no longer has diabetes due to weight loss and diet control 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 (Acute) Squamous cell carcinoma of tonsil (Acute) Cervical lymphadenopathy (Acute) Tonsillar mass (Acute) Unintentional weight loss (Acute) Chest pain (Acute) Sleep apnea (Acute) Asthma (Chronic) Medical History Tonsillar cancer Hx of, treated with chemoradiation At risk for aspiration RSI intubation, OGT placed, awake extubation and noted to have bile around 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 Presence of total knee joint prosthesis Vitamin D deficiency High arbovirus antibody titer Mild intermittent asthma Abnormal weight loss Lumbosacral radiculopathy Pyogenic bacterial arthritis of knee Primary malignant neoplasm of tonsil Anemia Umbilical hernia Right inguinal hernia recurrent Repaired Jun 2022, Mike Osteoarthritis of left knee Chondromalacia patellae of left knee Obesity Diverticulosis Colon polyps Trigeminy History of tobacco use Shoulder pain, left HTN (hypertension) Per pt. 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) Essential tremor (11/21/14) Hyperlipemia Depression Surgical History S/P inguinal hernia repair using synthetic patch (~07/08/23) recurrent right inguinal hernia S/P inguinal hernia repair using synthetic patch (~06/09/22) and umbilical hernia History of total left hip replacement (09/02/19) Trochanteric bursitis, left hip S/P debridement with IT band lengthenin08/12/2021 History of total left knee replacement (10/02/20) Hx of colonoscopy (~07/2022) Hx of total knee arthroplasty Right Status post right rotator cuff repair (~01/25/19) Repair of supraspinatus, distal clavicle excision, biceps tenotomy Dr. 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 Family History Father , 65 from [place] Heart disease Hypertension Myocardial infarction Brother , 83 of leukemia Tremor Leukemia Son Seizure Mother , age 95 Osteoarthritis Daughter Alive and well Social History (Updated 02/12/25 @ 17:11 by Sergio Kothari) Smoking/Tobacco Use Status: Former Tobacco Use Quit Date: 09/07/79 Pack-years: 1 Smoking risk assessment performed?: Yes Alcohol Intake: current Alcohol Intake frequency: a few times a week Alcohol type: beer Details: MODERATE 5-7 TIMES PER WEEK Drug use: Never Substance use type: does not use Household members: children Housing: house Number of Children: 2 current occupation: Retired Current gender identity: male What type of physical activity do you participate in: independent ambulation Do you feel safe at home: Yes Do you feel safe in your relationship?: Yes Additional Social history: Retired from [employer], lives his own home in [facility] [place] [facility] [place], adult grandson stays with him. 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 Results Last Vital Signs Temp 97.6 F 02/12/25 10:14 Pulse 85 02/12/25 12:45 Resp 20 02/12/25 12:50 BP 161/83 H 02/12/25 12:45 Pulse Ox 96 02/12/25 10:50 Labs 02/12/25 10:20 02/12/25 10:20 Labs: Laboratory Results - last 24 hr 02/12/25 02/12/25 02/12/25 10:20 11:27 12:41 WBC 8.71 RBC 4.76 Hgb 14.3 Hct 44.1 MCV 93 MCH 30.0 MCHC 32.4 RDW 14.6 H Plt Count 373 MPV 9.6 Immature Gran % 0.5 Neutrophils % 88.3 Lymphocytes % 3.1 Monocytes % 7.5 Eosinophils % 0.5 Basophils % 0.1 Nucleated RBC % 0.0 Absolute Neutrophils 7.70 H Absolute Lymphocytes 0.27 L Absolute Monocytes 0.65 Absolute Eosinophils 0.04 Absolute Basophils 0.01 Sodium 136 Potassium 3.9 Chloride 102 Carbon Dioxide 25.4 Anion Gap 8.6 BUN 29 H Creatinine 1.1 Est GFR (CKD-EPI 2020) 70.01 Glucose 146 H Calcium 8.9 Magnesium 1.8 Total Bilirubin 0.6 AST 16 ALT 20 Alkaline Phosphatase 89 Troponin I 10 9 Total Protein 6.9 Albumin 3.1 L Lipase 29 Urine Color Yellow Urine Clarity Cloudy Urine pH 5.5 Ur Specific [place] 1.015 Urine Protein 100 H Urine Ketones 15 H Urine Blood Large H Urine Nitrite Negative Urine Bilirubin Negative Urine Urobilinogen 0.2 Ur Leukocyte Esterase Trace H Urine RBC >50 H Urine WBC 10-20 H Ur Epithelial Cells Rare Urine Crystals Negative Urine Bacteria Moderate Urine Casts Negative Urine Mucus Negative Ur Culture Indicated? Yes Urine Glucose Negative 02/12/25 12:51 WBC RBC Hgb Hct MCV MCH MCHC RDW Plt Count MPV Immature Gran % Neutrophils % Lymphocytes % Monocytes % Eosinophils % Basophils % Nucleated RBC % Absolute Neutrophils Absolute Lymphocytes Absolute Monocytes Absolute Eosinophils Absolute Basophils Sodium Potassium Chloride Carbon Dioxide Anion Gap BUN Creatinine Est GFR (CKD-EPI 2020) Glucose Calcium Magnesium Total Bilirubin AST ALT Alkaline Phosphatase Troponin I Cancelled Total Protein Albumin Lipase Urine Color Urine Clarity Urine pH Ur Specific [place] Urine Protein Urine Ketones Urine Blood Urine Nitrite Urine Bilirubin Urine Urobilinogen Ur Leukocyte Esterase Urine RBC Urine WBC Ur Epithelial Cells Urine Crystals Urine Bacteria Urine Casts Urine Mucus Ur Culture Indicated? Urine Glucose
[2025-02-12] MEDS: PIPERACILLIN/TAZO 3.375 GM in Normal Saline 50 ML IVPB (13:52)
--- NOTE | 2025-02-12 16:07 | W.PM.HP.N ---
Date of service: 02/12/25 Time of Service: 16:07 Assessment and Plan Assessment and plan (1) Gastric outlet obstruction: Status: Acute Assessment and plan: Gastric outlet obstruction that appears to be cause by metastatic disease. He has already met with Dr. Mckeon who reviewed some pallitaive options. He was also accepted at by Dr. Kitty Mckeon from surgical oncology who accepted the patient pending beds, likely 48hr He isn't uncomfortable and not vomting now, will not place NGT Admit for supportive care pending palliative procedure. Ask nutrtion for help with TPN orders so he can maintin nutrition. IVF for now. (2) Urothelial carcinoma: Status: Acute Assessment and plan: This appears to be advancing despite chemo/immune therapy oncology team will have to reassess about treatment options and if it's worth continuing. For pain, doesn't tolerate morphine or fentanyl. Can try IV hydromorphone. Ketoralac could also be an option but would be careful on kidneys. (3) Diabetes: Status: None Assessment and plan: Controlled without medication will fingerstick, but can stop if they are all low. (4) DVT (deep venous thrombosis): Status: Chronic Assessment and plan: Given active DVT, will treat with therapeutic enoxaparin since I don't think he will have a procedure tomorrow. (5) Atrial fibrillation: Status: Chronic Assessment and plan: Rate okay now, can use metoprolol IV if high. (6) Palliative care patient: Status: Acute Assessment and plan: He is aware of difficult prognosis, daughter Dejah in the room as well. He has considered his goals of care. He doesn't want a feeding tube long term care social worker. Consult palliative to follow He confirms DNR/DNI (7) Pyuria: Status: Acute Assessment and plan: Given pip/tazo, but I don't appreciate that he has any symtoms of UTI, no WBC elevation, and stranding in his kidney he has had chronically. I will not continue antibiotics for now. (8) Depression: Assessment and plan: He hasn't been able to take his fluoxetine for a few days. It has a very long half life, no signs withdrawal at this point. History of Present Illness History of Present Illness Chief Complaint: vomiting Narrative: 74 year old man with a history of diabetes, parkinsonism, cerebrovascular disease, atrial fibrillation and recent DVT on apixaban, h/o tonisillar cancer in remission, right nephroureteral stent associated with active high grade urothelial carcinoma of the right renal pelvis with known metastatic disease to the lungs and lymph nodes who presented with vomiting and inability to tolerate oral solids or liquids for the past 2-3 days. He is actively getting palliative enfortumab-vedotin (Antibody/chemo) and pembrolidzumab (Keytruda immune modulator) on Tuesdays since November. He initially tolerated this well, but he has had increasing difficulty eating for the past 2 weeks. He was seen in the ED 02/05 for nausea and loose stools and was discharged with supportive care. He has been able to tolerate shakes until Thursday, 2 days prior to admission. That morning he vomited his shake up after drinking even though he premedicated with zofran. He tried another one yesterday and vomited. He tries to slowly sip on water, and even that he brings up at times. He doesn't have abdominal pain now, but has episodes of gassiness associated with heartburn from epigastrum up. Since this morning, he has had some headaches as well, nuchal aching. He last had a BM 2 days ago. He hasn't had blood or black vomit or stool. He has gotten fluids in the ED a feels a little better. He saw the surgeon after the CT showed an obstructing duodenal mass. He was diagnosed with RLE DVT 2 month ago, hasn't been able to take his apixaban or other medications for days. Review of Systems All systems reviewed & are unremarkable except as noted in HPI and below Constitutional Constitutional: Denies fever(s), Reports headache(s) and Reports weight loss (20lbs this month or so) ENT Ears, Nose, Mouth, and Throat: Reports headache(s) Comments: hard of hearing, chronic Neurologic Neurologic: Reports headache(s) PFSH All Active Problems (Updated 02/12/25 @ 17:33 by Sergio Kothari) Pyuria (Acute) Palliative care patient (Acute) Atrial fibrillation (Chronic) DVT (deep venous thrombosis) (Chronic) Gastric outlet obstruction (Acute) Abdominal pain (Acute) Abdominal pain (Acute) Cancer-related pain (Acute) 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, secondary (Acute) Cancer, metastatic to lung (Acute) Urothelial cancer (Acute) Foot drop, right (Acute) Cerebrovascular disease (Acute) Parkinsonism (Acute) Frequent falls (Acute) Urothelial carcinoma (Acute) Other calcification of muscle, left shoulder (Acute) Gross hematuria (Acute) Hematoma of abdominal wall (Acute) post-op Recurrent simple right inguinal hernia (Acute) Atopic dermatitis (Acute) Contact dermatitis (Acute) Lightheadedness (Acute) Sensorineural hearing loss (Acute) Tubular adenoma of colon (Acute) Hypomagnesemia (Acute) Hypoglycemia (Acute) Dysphagia (Chronic) IDDM (insulin dependent diabetes mellitus) (Chronic) no longer has diabetes due to weight loss and diet control 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 (Acute) Squamous cell carcinoma of tonsil (Acute) Cervical lymphadenopathy (Acute) Tonsillar mass (Acute) Unintentional weight loss (Acute) Chest pain (Acute) Sleep apnea (Acute) Vertigo (Acute) Asthma (Chronic) Medical History Tonsillar cancer Hx of, treated with chemoradiation At risk for aspiration RSI intubation, OGT placed, awake extubation and noted to have bile around ETT boat pilot balloon. Presence of total knee joint prosthesis Vitamin D deficiency High arbovirus antibody titer Mild intermittent asthma Abnormal weight loss Lumbosacral radiculopathy Pyogenic bacterial arthritis of knee Primary malignant neoplasm of tonsil Anemia Umbilical hernia Right inguinal hernia recurrent Repaired Jun 2022, Mike Osteoarthritis of left knee Chondromalacia patellae of left knee Obesity Diverticulosis Colon polyps Trigeminy History of tobacco use Shoulder pain, left HTN (hypertension) Per pt. 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) Essential tremor (11/21/14) Hyperlipemia Depression Surgical History S/P inguinal hernia repair using synthetic patch (~07/08/23) recurrent right inguinal hernia S/P inguinal hernia repair using synthetic patch (~06/09/22) and umbilical hernia History of total left hip replacement (09/02/19) Trochanteric bursitis, left hip S/P debridement with IT band lengthenin08/12/2021 History of total left knee replacement (10/02/20) Hx of colonoscopy (~07/2022) Hx of total knee arthroplasty Right Status post right rotator cuff repair (~01/25/19) Repair of supraspinatus, distal clavicle excision, biceps tenotomy Dr. 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 Family History Father , 65 from [place] Heart disease Hypertension Myocardial infarction Brother , 83 of leukemia Tremor Leukemia Son Seizure Mother , age 95 Osteoarthritis Daughter Alive and well Social History (Updated 02/12/25 @ 17:11 by Sergio Kothari) Smoking/Tobacco Use Status: Former Tobacco Use Quit Date: 09/07/79 Pack-years: 1 Smoking risk assessment performed?: Yes Alcohol Intake: current Alcohol Intake frequency: a few times a week Alcohol type: beer Details: MODERATE 5-7 TIMES PER WEEK Drug use: Never Substance use type: does not use Household members: children Housing: house Number of Children: 2 current occupation: Retired Current gender identity: male What type of physical activity do you participate in: independent ambulation Do you feel safe at home: Yes Do you feel safe in your relationship?: Yes Additional Social history: Retired from [employer], [place], adult grandson stays with him. 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 Meds Allergies and Home Medications Allergies Allergy/AdvReac Type Severity Reaction Status Date / Time ceftriaxone Allergy Severe ANAPHYLAXIS Verified 02/12/25 09:42 Cephalosporins Allergy Severe Anaphylaxsi Verified 02/12/25 09:42 s ciprofloxacin AdvReac Dizziness/L Verified 02/12/25 09:42 ightheade fentanyl AdvReac Agitation, Verified 02/12/25 09:42 confusion meperidine HCl (From Demerol) AdvReac vomiting Verified 02/12/25 09:42 morphine AdvReac vomiting Verified 02/12/25 09:42 Home Medications ?Medication ?Instructions ?Recorded ?Confirmed ?Type meclizine 25 mg tablet 25 mg PO Q6H PRN 06/28/20 02/12/25 History simvastatin 10 mg tablet 10 mg PO DAILY 05/06/23 02/12/25 History amoxicillin 500 mg tablet 2,000 mg PO DAILY PRN 05/22/23 02/12/25 History cyanocobalamin (vitamin B-12) 1,000 mcg PO DAILY 05/25/23 02/12/25 History 1,000 mcg capsule fluoxetine 40 mg capsule 40 mg PO DAILY 05/25/23 02/12/25 History vitamin E (dl, acetate) 180 mg 180 mg PO DAILY 07/07/23 02/12/25 History (400 unit) capsule fluoride (sodium) 1.1 % dental 1 applic dental DAILY 02/10/24 02/12/25 History paste levothyroxine 125 mcg tablet 125 mcg PO DAILY 02/10/24 02/12/25 History melatonin 3 mg tablet 3 mg PO HS PRN 11/09/24 02/12/25 History omeprazole 40 mg capsule,delayed 40 mg PO DAILY 11/09/24 02/12/25 History release tamsulosin 0.4 mg capsule 0.4 mg PO DAILY 11/09/24 02/12/25 History oxycodone 5 mg tablet 5 mg PO Q4H PRN pain #60 tabs 11/24/24 02/12/25 Rx apixaban 5 mg tablet (Eliquis) 5 mg PO BID 01/05/25 02/12/25 History trazodone 50 mg tablet 25 - 50 mg PO QHS 01/05/25 02/12/25 History Exam Narrative Exam Narrative: GEN: Alert and oriented x 4, pleasant and cooperative, gives linear history. Sits up on his own on the side of the bed, in no acute distress. HEENT: Head atraumatic. Conjunctiva clear, no icterus. PEERL, EOMI. no rhinorrhea. MMM, OP benign. Neck is supple with symmetric ROM, some fullness in anterior cervical regions bilaterally, trachea midline LUNGS: CTAB with normal effort CV: RRR with no murmurs, gallops, or rubs. ABD: hypoactive bowel sounds, soft, nontender to palpation. Mild gassy distention. No masses. EXT: no cyanosis, clubbing, or edema MSK: No joint redness or swelling NEURO: CN 2-12 grossly intact. Normal movement of 4 extremities. Normal speech and coordination. Mild resting tremor SKIN: No rashes or open wounds. PSYCH: normal mood and affect, normal thought process Results Imaging Abdomen CT scan report/results: report reviewed CT scan - pelvis: report reviewed EKG: report reviewed and image reviewed (Afib, average rate 80, no ischemia) Imaging Studies: CT A/P with: 1. Marked distension of the stomach to the level of the proximal duodenum. Question of thickening of the 1st portion of the duodenum. Gastric outlet obstruction should be considered. Follow-up with upper endoscopy and/or upper GI barium examination is recommended. 2. Persistent perinephric infiltration of the right kidney. There is delayed enhancement of the right kidney. There is a right nephroureteral stent which is in stable position. Differential considerations include obstruction or infection. Delayed imaging through the renal collecting system following contrast administration should be considered for further evaluation. 3. Stable appearance of the lung bases. No new infiltrates are seen. 4. Subtle 1.1 cm hypodensity in the left lobe of the liver suspicious for metastatic disease. 5. Colonic diverticulosis without evidence of acute diverticulitis. Labs 02/12/25 10:20 02/12/25 10:20 Labs: Laboratory Results - last 24 hr 02/12/25 02/12/25 02/12/25 10:20 11:27 12:41 WBC 8.71 RBC 4.76 Hgb 14.3 Hct 44.1 MCV 93 MCH 30.0 MCHC 32.4 RDW 14.6 H Plt Count 373 MPV 9.6 Immature Gran % 0.5 Neutrophils % 88.3 Lymphocytes % 3.1 Monocytes % 7.5 Eosinophils % 0.5 Basophils % 0.1 Nucleated RBC % 0.0 Absolute Neutrophils 7.70 H Absolute Lymphocytes 0.27 L Absolute Monocytes 0.65 Absolute Eosinophils 0.04 Absolute Basophils 0.01 Sodium 136 Potassium 3.9 Chloride 102 Carbon Dioxide 25.4 Anion Gap 8.6 BUN 29 H Creatinine 1.1 Est GFR (CKD-EPI 2020) 70.01 Glucose 146 H Calcium 8.9 Magnesium 1.8 Total Bilirubin 0.6 AST 16 ALT 20 Alkaline Phosphatase 89 Troponin I 10 9 Total Protein 6.9 Albumin 3.1 L Lipase 29 Urine Color Yellow Urine Clarity Cloudy Urine pH 5.5 Ur Specific [place] 1.015 Urine Protein 100 H Urine Ketones 15 H Urine Blood Large H Urine Nitrite Negative Urine Bilirubin Negative Urine Urobilinogen 0.2 Ur Leukocyte Esterase Trace H Urine RBC >50 H Urine WBC 10-20 H Ur Epithelial Cells Rare Urine Crystals Negative Urine Bacteria Moderate Urine Casts Negative Urine Mucus Negative Ur Culture Indicated? Yes Urine Glucose Negative 02/12/25 12:51 WBC RBC Hgb Hct MCV MCH MCHC RDW Plt Count MPV Immature Gran % Neutrophils % Lymphocytes % Monocytes % Eosinophils % Basophils % Nucleated RBC % Absolute Neutrophils Absolute Lymphocytes Absolute Monocytes Absolute Eosinophils Absolute Basophils Sodium Potassium Chloride Carbon Dioxide Anion Gap BUN Creatinine Est GFR (CKD-EPI 2020) Glucose Calcium Magnesium Total Bilirubin AST ALT Alkaline Phosphatase Troponin I Cancelled Total Protein Albumin Lipase Urine Color Urine Clarity Urine pH Ur Specific [place] Urine Protein Urine Ketones Urine Blood Urine Nitrite Urine Bilirubin Urine Urobilinogen Ur Leukocyte Esterase Urine RBC Urine WBC Ur Epithelial Cells Urine Crystals Urine Bacteria Urine Casts Urine Mucus Ur Culture Indicated? Urine Glucose Last Vital Signs Temp 36.4 C 02/12/25 10:14 Pulse 77 02/12/25 13:46 Resp 18 02/12/25 13:50 BP 134/76 02/12/25 13:46 Pulse Ox 96 02/12/25 10:50 Time Spent Time spent with Patient: >75 minutes Time was spent: preparing to see the patient(eg.review tests), obtaining and/or reviewing separately otained hiistory, ordering medications,tests, procedures, referring, communicating with other health health care law specialist, indepentently interpreting results, counseling the patient and care coordination
--- NOTE | 2025-02-12 17:34 | W.PC.ACHO ---
Registration Status: Primary Language: Preferred Language: ED Information & Data Chief Complaint Nausea/Vomit/Diar 02/12/25 10:13 Chief Complaint Nausea/Vomit/Diar 02/12/25 10:00 Triage Note N/V for past couple of weeks 02/12/25 09:36 . no diarrhea. headache into back of neck and acid reflux. burping a lot. lab work done on thursday for chemo tx - kidney cancer with METS. no meds today - vomited them up yesterday - ? the few days before that if he kept them down. Medical / Surgical History (Last Reviewed 02/12/25 @ 17:09 by Sergio Kothari) Tonsillar cancer At risk for aspiration Presence of total knee joint prosthesis Vitamin D deficiency High arbovirus antibody titer Mild intermittent asthma Abnormal weight loss Lumbosacral radiculopathy Pyogenic bacterial arthritis of knee Primary malignant neoplasm of tonsil Umbilical hernia Right inguinal hernia Anemia Osteoarthritis of left knee Chondromalacia patellae of left knee Obesity Diverticulosis Colon polyps Trigeminy History of tobacco use Shoulder pain, left HTN (hypertension) GERD (gastroesophageal reflux disease) Septic arthritis of knee Septic joint Hypotension Headache Bradycardia Fatigue Shoulder pain, right Hip pain, left Neck pain on left side Vitamin B12 deficiency Psoriasis Primary osteoarthritis of right hip Chronic low back pain Hypothyroidism Diabetic peripheral neuropathy DJD of right AC (acromioclavicular) joint Right rotator cuff tear 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) Essential tremor (11/21/14) Hyperlipemia Depression (Last Reviewed 02/12/25 @ 17:09 by Sergio Kothari) S/P inguinal hernia repair using synthetic patch (~07/08/23) S/P inguinal hernia repair using synthetic patch (~06/09/22) History of total left hip replacement (09/02/19) Trochanteric bursitis, left hip History of total left knee replacement (10/02/20) Hx of colonoscopy (~07/2022) Hx of total knee arthroplasty Status post right rotator cuff repair (~01/25/19) S/P cholecystectomy S/P lumbar spine operation Status post total knee replacement, right Most Recent Vital Signs Temperature 36.9 C 02/12/25 17:12 Temperature Source Temporal Artery Scan 02/12/25 17:11 Pulse 85 02/12/25 17:12 Pulse 69 02/12/25 16:40 Respiratory Rate 18 02/12/25 17:12 Blood Pressure 126/86 02/12/25 17:12 Blood Pressure Mean 99 02/12/25 17:11 Blood Pressure Position Sitting 02/12/25 10:14 Pulse Oximetry 97 02/12/25 17:12 Oxygen Delivery Method Room Air 02/12/25 17:12 Oxygen Flow Rate 0 02/12/25 17:12 Pain Level 0 02/12/25 17:12 Allergies ceftriaxone Allergy (Severe, Verified 02/12/25 09:42) ANAPHYLAXIS Cephalosporins Allergy (Severe, Verified 02/12/25 09:42) Anaphylaxsis ciprofloxacin Adverse Reaction (Verified 02/12/25 09:42) Dizziness/Lightheade fentanyl Adverse Reaction (Verified 02/12/25 09:42) Agitation, confusion meperidine HCl (From Demerol) Adverse Reaction (Verified 02/12/25 09:42) vomiting morphine Adverse Reaction (Verified 02/12/25 09:42) vomiting Active Medications Generic Name Dose Route Start Last Admin Trade Name Freq PRN Reason Stop Dose Admin Iohexol 75 ml 02/12/25 11:30 02/12/25 11:17 Omnipaque 350 Mg/Ml 100 Ml Btl IJ 03/14/25 23:59 75 ml DIRECTED BRANDON Administration Sodium Chloride 50 ml 02/12/25 11:30 02/12/25 11:16 Normal Saline - Diluent 50 Ml Vial IJ 50 ml .FOR DI USE BRANDON Administration IV IV Catheter Gauge [Right 20 Subclavian] Diet Orders Category Date Time Status Nothing Per Oral [DIET] Nutrition 02/12/25 Dinner Active Diagnostics 02/12/25 02/12/25 02/12/25 Range/Units 12:51 12:41 11:27 WBC (4.4-10.8) 10^3/uL RBC (4.36-5.78) 10^6/uL Hgb (13.5-17.5) g/dL Hct (40.0-50.0) % MCV (80-95) fL MCH (27.0-33.0) pg MCHC (32.0-36.0) % RDW (11.8-14.1) % Plt Count (130-400) 10^3/uL MPV (8.0-11.0) fL Immature Gran % % Neutrophils % % Lymphocytes % % Monocytes % % Eosinophils % % Basophils % % Nucleated RBC % (0.0-0.3) % Absolute Neutrophils (1.2-6.7) 10^3/uL Absolute Lymphocytes (1.2-3.4) 10^3/uL Absolute Monocytes (0.1-0.8) 10^3/uL Absolute Eosinophils (0.0-0.7) 10^3/uL Absolute Basophils (0.0-0.2) 10^3/uL Sodium (136-145) mmol/L Potassium (3.5-5.1) mmol/L Chloride (98-107) mmol/L Carbon Dioxide (21.0-32.0) mmol/L Anion Gap (3-11) mmol/L BUN (7-18) mg/dL Creatinine (0.70-1.30) mg/dL Est GFR (CKD-EPI 2020) (mL/min/1.73m2) Glucose (74-106) mg/dL Calcium (8.5-10.1) mg/dL Magnesium (1.8-2.4) mg/dL Total Bilirubin (0.2-1.0) mg/dL AST (15-37) U/L ALT (16-63) U/L Alkaline Phosphatase (46-116) U/L Troponin I Cancelled 9 (<or=76) ng/L Total Protein (6.4-8.2) g/dL Albumin (3.4-5.0) g/dL Lipase (<78) U/L Urine Color Yellow (Yellow) Urine Clarity Cloudy (Clear) Urine pH 5.5 (5-8) Ur Specific [place] 1.015 (1.005-1.025) Urine Protein 100 H (Neg-Trace) mg/dL Urine Ketones 15 H (Negative) mg/dL Urine Blood Large H (Negative) Urine Nitrite Negative (Negative) Urine Bilirubin Negative (Negative) Urine Urobilinogen 0.2 (Up to 0.2) mg/dL Ur Leukocyte Esterase Trace H (Negative) Urine RBC >50 H (0-2) HPF Urine WBC 10-20 H (0-5) HPF Ur Epithelial Cells Rare (Negative) HPF Urine Crystals Negative (Negative) HPF Urine Bacteria Moderate (Negative) HPF Urine Casts Negative (Negative) LPF Urine Mucus Negative (Negative) Ur Culture Indicated? Yes Urine Glucose Negative (Negative) mg/dL 06/08/25 Range/Units 10:20 WBC 8.71 (4.4-10.8) 10^3/uL RBC 4.76 (4.36-5.78) 10^6/uL Hgb 14.3 (13.5-17.5) g/dL Hct 44.1 (40.0-50.0) % MCV 93 (80-95) fL MCH 30.0 (27.0-33.0) pg MCHC 32.4 (32.0-36.0) % RDW 14.6 H (11.8-14.1) % Plt Count 373 (130-400) 10^3/uL MPV 9.6 (8.0-11.0) fL Immature Gran % 0.5 % Neutrophils % 88.3 % Lymphocytes % 3.1 % Monocytes % 7.5 % Eosinophils % 0.5 % Basophils % 0.1 % Nucleated RBC % 0.0 (0.0-0.3) % Absolute Neutrophils 7.70 H (1.2-6.7) 10^3/uL Absolute Lymphocytes 0.27 L (1.2-3.4) 10^3/uL Absolute Monocytes 0.65 (0.1-0.8) 10^3/uL Absolute Eosinophils 0.04 (0.0-0.7) 10^3/uL Absolute Basophils 0.01 (0.0-0.2) 10^3/uL Sodium 136 (136-145) mmol/L Potassium 3.9 (3.5-5.1) mmol/L Chloride 102 (98-107) mmol/L Carbon Dioxide 25.4 (21.0-32.0) mmol/L Anion Gap 8.6 (3-11) mmol/L BUN 29 H (7-18) mg/dL Creatinine 1.1 (0.70-1.30) mg/dL Est GFR (CKD-EPI 2020) 70.01 (mL/min/1.73m2) Glucose 146 H (74-106) mg/dL Calcium 8.9 (8.5-10.1) mg/dL Magnesium 1.8 (1.8-2.4) mg/dL Total Bilirubin 0.6 (0.2-1.0) mg/dL AST 16 (15-37) U/L ALT 20 (16-63) U/L Alkaline Phosphatase 89 (46-116) U/L Troponin I 10 (<or=76) ng/L Total Protein 6.9 (6.4-8.2) g/dL Albumin 3.1 L (3.4-5.0) g/dL Lipase 29 (<78) U/L Urine Color (Yellow) Urine Clarity (Clear) Urine pH (5-8) Ur Specific [place] (1.005-1.025) Urine Protein (Neg-Trace) mg/dL Urine Ketones (Negative) mg/dL Urine Blood (Negative) Urine Nitrite (Negative) Urine Bilirubin (Negative) Urine Urobilinogen (Up to 0.2) mg/dL Ur Leukocyte Esterase (Negative) Urine RBC (0-2) HPF Urine WBC (0-5) HPF Ur Epithelial Cells (Negative) HPF Urine Crystals (Negative) HPF Urine Bacteria (Negative) HPF Urine Casts (Negative) LPF Urine Mucus (Negative) Ur Culture Indicated? Urine Glucose (Negative) mg/dL 02/12/25 13:55 Blood Culture - Pending Blood 02/12/25 13:40 Blood Culture - Pending Blood 02/12/25 12:41 Urine Culture - Pending Urine - Reflex from [id number] Documentation Fingerstick Glucose Start: 02/12/25 15:59 Freq: .Q6H Status: Active Protocol: Activity Type Activity Date Activity User E-sign Co-sign Detail Recorded Client Recorded Date Recorded By Document 02/12/25 17:07 GALG DAEMON(3) [id number] 02/12/25 17:08 GALG DAEMON(4) Intake and Output - 24 Hour Total 02/12/25 09:31 thru 02/12/25 17:12 Weight 84.6 kg Other: Emesis Description Bile Falls Risk Assessment History of Falls Previous History 02/12/25 17:12 Contributing Factors No Factors 02/12/25 17:12 Ambulatory Aids Independent 02/12/25 17:12 Tubes/Lines None 02/12/25 17:12 Gait Evaluation No gait disturbance 02/12/25 17:12 Cognition No cognitive impairment 02/12/25 17:12 Fall Total Score 15 02/12/25 17:12 Level of Risk Standard/Low Risk 02/12/25 17:12 Problems (Last Reviewed 02/12/25 @ 17:09 by Sergio Kothari) Abdominal pain (Acute) v v v v v v v v v Sending and/or Receiving Nurses: Please use comment section below to note any information pertinent to the patient hand-off not included above. Information / Comments: Report received from:ED Nurse Nader at 16:50 pT background and current situation given. Was stated pT had 20g in right a.c., pT infact has an accessed port. All questions answered.
[2025-02-12] MEDS: POTASSIUM CHLORIDE/D5-0.45NACL 1,000 ML 120 MEQ IV (17:54)
--- NOTE | 2025-02-12 18:19 | DSE_ITS ---
Date of service: 02/12/25 Time of Service: 18:20 DS: Diagnosis Discharge Diagnosis (1) Gastric outlet obstruction: Status: Acute (2) Urothelial carcinoma: Status: Acute (3) Diabetes: Status: None (4) DVT (deep venous thrombosis): Status: Chronic (5) Atrial fibrillation: Status: Chronic (6) Palliative care patient: Status: Acute (7) Pyuria: Status: Acute (8) Depression: Discharge Plan Disposition Patient Disposition: Transfer-Acute Inpatient Care Specific Acute Inpt Facility: [facility] Condition: Stable Discharge Details Reason For Visit: Metastatic Cancer with Duodenal Obstruction Admit Date/Time: 02/12/25 15:52 Admit Provider: Sergio Kothari Attending Provider: Sergio Kothari Primary Care Provider: Beatriz Cotton V Hospital Course Hospital Course: 74 year old man with a history of diabetes, parkinsonism, cerebrovascular dis ease, atrial fibrillation and recent DVT on apixaban, h/o tonisillar cancer in remission, right nephroureteral stent associated with active high grade urothelial carcinoma of the right renal pelvis with known metastatic disease to the lungs and lymph nodes who presented with vomiting and inability to tolerate oral solids or liquids for the past 2-3 days. He is actively getting palliative enfortumab-vedotin (Antibody/chemo) and pembrolidzumab (Keytruda immune modulator) on Tuesdays since November. He received 2 liters isotonic in the ED. He saw the surgeon after the CT showed an obstructing duodenal mass. He was then offered transfer to [facility] surgical oncology. He was diagnosed with RLE DVT 1-2 month ago, hasn't been able to take his apixaban or other medications for days. He was given therapeutic lovenox 80mg x 1 before transfer. He was given pip/tazo for positive urine cultures and renal abnormalities on CT, but it was not clear that he had any symptoms attributable to infection. We were not planning to continue antibiotics. Urine culture and blood cultures are pending at [facility] Home Meds and New Rx's Prescriptions: No Action vitamin E (dl, acetate) 180 mg (400 unit) capsule 180 mg PO DAILY melatonin 3 mg tablet 3 mg PO HS PRN omeprazole 40 mg capsule,delayed release(DR/EC) 40 mg PO DAILY tamsulosin 0.4 mg capsule 0.4 mg PO DAILY oxycodone 5 mg tablet 5 mg PO Q4H MDD 6 tabs PRN (Reason: pain) Qty: 60 0RF Rx Instructions: palliative care patient for cancer related pain Eliquis 5 mg tablet 5 mg PO BID trazodone 50 mg tablet 25 - 50 mg PO QHS meclizine 25 mg Tablet 25 mg PO Q6H PRN Patient Comments: Only for dentist fluoxetine 40 mg capsule 40 mg PO DAILY cyanocobalamin (vitamin B-12) 1,000 mcg capsule 1,000 mcg PO DAILY amoxicillin 500 mg tablet 2,000 mg PO DAILY PRN Rx Instructions: take 4 tablets one hour prior to dental procedure fluoride (sodium) 1.1 % paste 1 applic dental DAILY levothyroxine 125 mcg tablet 125 mcg PO DAILY simvastatin 10 mg tablet 10 mg PO DAILY Discharge Instructions Activity:: Activity as Tolerated Equipment/Supplies:: No Equipment Needed Diet:: NPO Discharge Orders Discharge Orders: Discharge Order (Routine); Ordered 02/12/25 Ordered By: Sergio Kothari DS: Summary Time Spent with Patient providing and/or coordinating discharge services: Greater than 30 minutes Status at Discharge Functional status at discharge: independent ambulation Overall status at discharge: patient is not back to baseline Mental Status: mental status grossly normal Speech and Movement: speech and movement normal Mood: congruent mood Affect: normal affect Quality:SDOH Health Related Social Needs: No Data to Display Exam Narrative Exam Narrative: GEN: Alert and oriented x 4, pleasant and cooperative, gives linear history. Sits up on his own on the side of the bed, in no acute distress. HEENT: Head atraumatic. Conjunctiva clear, no icterus. PEERL, EOMI. no rhinorrhea. MMM, OP benign. Neck is supple with symmetric ROM, some fullness in anterior cervical regions bilaterally, trachea midline LUNGS: CTAB with normal effort CV: RRR with no murmurs, gallops, or rubs. ABD: hypoactive bowel sounds, soft, nontender to palpation. Mild gassy distention. No masses. EXT: no cyanosis, clubbing, or edema MSK: No joint redness or swelling NEURO: CN 2-12 grossly intact. Normal movement of 4 extremities. Normal speech and coordination. Mild resting tremor SKIN: No rashes or open wounds. PSYCH: normal mood and affect, normal thought process Psych Mental Status: mental status grossly normal Speech and Movement: speech and movement normal Mood: congruent mood Affect: normal affect DS: Data Vitals/I&O Vitals and I&O: Vital Signs Temperature 36.9 C 02/12/25 17:12 Temperature Source Temporal Artery Scan 02/12/25 17:11 Pulse 85 02/12/25 17:12 Pulse Rhythm Regular 02/12/25 17:12 Pulse 69 02/12/25 16:40 Respiratory Rate 18 02/12/25 17:12 Respiratory Effort Normal, Non-Labored 02/12/25 17:12 Respiratory Depth Normal 02/12/25 17:12 Respiratory Pattern Normal 02/12/25 17:12 Blood Pressure 126/86 02/12/25 17:12 Blood Pressure Mean 99 02/12/25 17:11 Blood Pressure Position Sitting 02/12/25 10:14 Pulse Oximetry 97 02/12/25 17:12 Oxygen Delivery Method Room Air 02/12/25 17:12 Oxygen Flow Rate 0 02/12/25 17:12 Pain Level 0 02/12/25 17:12 Intake & Output 02/11/25 02/12/25 02/12/25 23:59 11:59 23:59 Weight 85.275 kg 84.6 kg Other: Urine Appearance Clear Emesis Description Bile Data Completed and Pending Labs on day of discharge: Labs from last 24 hours 02/12/25 02/12/25 02/12/25 12:51 12:41 11:27 WBC RBC Hgb Hct MCV MCH MCHC RDW Plt Count MPV Immature Gran % Neutrophils % Lymphocytes % Monocytes % Eosinophils % Basophils % Nucleated RBC % Absolute Neutrophils Absolute Lymphocytes Absolute Monocytes Absolute Eosinophils Absolute Basophils Sodium Potassium Chloride Carbon Dioxide Anion Gap BUN Creatinine Est GFR (CKD-EPI 2020) Glucose Calcium Magnesium Total Bilirubin AST ALT Alkaline Phosphatase Troponin I Cancelled 9 Total Protein Albumin Lipase Urine Color Yellow Urine Clarity Cloudy Urine pH 5.5 Ur Specific [place] 1.015 Urine Protein 100 H Urine Ketones 15 H Urine Blood Large H Urine Nitrite Negative Urine Bilirubin Negative Urine Urobilinogen 0.2 Ur Leukocyte Esterase Trace H Urine RBC >50 H Urine WBC 10-20 H Ur Epithelial Cells Rare Urine Crystals Negative Urine Bacteria Moderate Urine Casts Negative Urine Mucus Negative Ur Culture Indicated? Yes Urine Glucose Negative 02/12/25 10:20 WBC 8.71 RBC 4.76 Hgb 14.3 Hct 44.1 MCV 93 MCH 30.0 MCHC 32.4 RDW 14.6 H Plt Count 373 MPV 9.6 Immature Gran % 0.5 Neutrophils % 88.3 Lymphocytes % 3.1 Monocytes % 7.5 Eosinophils % 0.5 Basophils % 0.1 Nucleated RBC % 0.0 Absolute Neutrophils 7.70 H Absolute Lymphocytes 0.27 L Absolute Monocytes 0.65 Absolute Eosinophils 0.04 Absolute Basophils 0.01 Sodium 136 Potassium 3.9 Chloride 102 Carbon Dioxide 25.4 Anion Gap 8.6 BUN 29 H Creatinine 1.1 Est GFR (CKD-EPI 2020) 70.01 Glucose 146 H Calcium 8.9 Magnesium 1.8 Total Bilirubin 0.6 AST 16 ALT 20 Alkaline Phosphatase 89 Troponin I 10 Total Protein 6.9 Albumin 3.1 L Lipase 29 Urine Color Urine Clarity Urine pH Ur Specific [place] Urine Protein Urine Ketones Urine Blood Urine Nitrite Urine Bilirubin Urine Urobilinogen Ur Leukocyte Esterase Urine RBC Urine WBC Ur Epithelial Cells Urine Crystals Urine Bacteria Urine Casts Urine Mucus Ur Culture Indicated? Urine Glucose 02/12/25 13:55 Blood Blood Culture - Pending 02/12/25 13:40 Blood Blood Culture - Pending 02/12/25 12:41 Urine - Reflex from Ua Urine Culture - Pending Preliminary micro results at discharge 02/12/25 13:55 Blood Blood Culture - Pending 02/12/25 13:40 Blood Blood Culture - Pending 02/12/25 12:41 Urine - Reflex from Ua Urine Culture - Pending [facility] All Active Problems (Updated 02/12/25 @ 17:33 by Sergio Kothari) Pyuria (Acute) Palliative care patient (Acute) Atrial fibrillation (Chronic) DVT (deep venous thrombosis) (Chronic) Gastric outlet obstruction (Acute) Abdominal pain (Acute) Abdominal pain (Acute) Cancer-related pain (Acute) 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, secondary (Acute) Cancer, metastatic to lung (Acute) Urothelial cancer (Acute) Foot drop, right (Acute) Cerebrovascular disease (Acute) Parkinsonism (Acute) Frequent falls (Acute) Urothelial carcinoma (Acute) Other calcification of muscle, left shoulder (Acute) Gross hematuria (Acute) Hematoma of abdominal wall (Acute) post-op Recurrent simple right inguinal hernia (Acute) Atopic dermatitis (Acute) Contact dermatitis (Acute) Lightheadedness (Acute) Sensorineural hearing loss (Acute) Tubular adenoma of colon (Acute) Hypomagnesemia (Acute) Hypoglycemia (Acute) Dysphagia (Chronic) IDDM (insulin dependent diabetes mellitus) (Chronic) no longer has diabetes due to weight loss and diet control 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 (Acute) Squamous cell carcinoma of tonsil (Acute) Cervical lymphadenopathy (Acute) Tonsillar mass (Acute) Unintentional weight loss (Acute) Chest pain (Acute) Sleep apnea (Acute) Vertigo (Acute) Asthma (Chronic) Medical History Tonsillar cancer Hx of, treated with chemoradiation At risk for aspiration RSI intubation, OGT placed, awake extubation and noted to have bile around ETT commuter pilot balloon. Presence of total knee joint prosthesis Vitamin D deficiency High arbovirus antibody titer Mild intermittent asthma Abnormal weight loss Lumbosacral radiculopathy Pyogenic bacterial arthritis of knee Primary malignant neoplasm of tonsil Anemia Umbilical hernia Right inguinal hernia recurrent Repaired Jun 2022, Mike Osteoarthritis of left knee Chondromalacia patellae of left knee Obesity Diverticulosis Colon polyps Trigeminy History of tobacco use Shoulder pain, left HTN (hypertension) Per pt. 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) Essential tremor (11/21/14) Hyperlipemia Depression Surgical History S/P inguinal hernia repair using synthetic patch (~07/08/23) recurrent right inguinal hernia S/P inguinal hernia repair using synthetic patch (~06/09/22) and umbilical hernia History of total left hip replacement (09/02/19) Trochanteric bursitis, left hip S/P debridement with IT band lengthenin08/12/2021 History of total left knee replacement (10/02/20) Hx of colonoscopy (~07/2022) Hx of total knee arthroplasty Right Status post right rotator cuff repair (~01/25/19) Repair of supraspinatus, distal clavicle excision, biceps tenotomy Dr. 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 Family History Father , 65 from [place] Heart disease Hypertension Myocardial infarction Brother , 83 of leukemia Tremor Leukemia Son Seizure Mother , age 95 Osteoarthritis Daughter Alive and well Social History (Updated 02/12/25 @ 17:11 by Sergio Kothari) Smoking/Tobacco Use Status: Former Tobacco Use Quit Date: 09/07/79 Pack-years: 1 Smoking risk assessment performed?: Yes Alcohol Intake: current Alcohol Intake frequency: a few times a week Alcohol type: beer Details: MODERATE 5-7 TIMES PER WEEK Drug use: Never Substance use type: does not use Household members: children Housing: house Number of Children: 2 current occupation: Retired Current gender identity: male What type of physical activity do you participate in: independent ambulation Do you feel safe at home: Yes Do you feel safe in your relationship?: Yes Additional Social history: Retired from [employer], lives his own home in [place] [facility], adult grandson stays with him. 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 Time Spent with Patient Time Spent with Patient: >85 minutes (on same day admission/transfer) Time was spent: preparing to see the patient(eg.review tests), obtaining and/or reviewing separately otained hiistory, ordering medications,tests, procedures, referring, communicating with other health care director rn, indepentently interpreting results, counseling the patient, care coordination and other
[2025-02-12] MEDS: Enoxaparin 40 MG/0.4 ML SYR 85 MG SC (18:20)
--- NOTE | 2025-02-12 18:38 | NUR.NOTE ---
SBAR report given Ravi at 18:33. Pt transfering to Surgical Oncology at [facility] going to level 3 WD ([phone]). Nursing Note:
== END 2025-02-12 19:40 | disposition short-term general hospital (02) | DRG 375 ==
LOC: ER 16:56 → MS 17:02
PROVIDERS: Admitting Provider Family Medicine; Emergency Provider Emergency Medicine; PCP Family Medicine; Visit Provider Family Medicine
DX: C78.4 Secondary malignant neoplasm of small intestine (principal); C65.1 Malignant neoplasm of right renal pelvis; K31.1 Adult hypertrophic pyloric stenosis; I48.20 Chronic atrial fibrillation, unspecified; C78.00 Secondary malignant neoplasm of unspecified lung; C77.8 Secondary and unspecified malignant neoplasm of lymph nodes of multiple regions; E11.9 Type 2 diabetes mellitus without complications; R82.81 Pyuria; F32.A Depression, unspecified; G89.3 Neoplasm related pain (acute) (chronic); M21.371 Foot drop, right foot; G20.C Parkinsonism, unspecified; I67.9 Cerebrovascular disease, unspecified; R29.6 Repeated falls; E83.42 Hypomagnesemia; Z85.89 Personal history of malignant neoplasm of other organs and systems; G47.30 Sleep apnea, unspecified; L20.9 Atopic dermatitis, unspecified; M54.16 Radiculopathy, lumbar region; J45.20 Mild intermittent asthma, uncomplicated; D64.9 Anemia, unspecified; I10 Essential (primary) hypertension; E53.8 Deficiency of other specified B group vitamins; K21.9 Gastro-esophageal reflux disease without esophagitis; Z87.891 Personal history of nicotine dependence; E03.9 Hypothyroidism, unspecified; Z96.653 Presence of artificial knee joint, bilateral; Z66 Do not resuscitate; Z86.718 Personal history of other venous thrombosis and embolism; Z79.01 Long term (current) use of anticoagulants; Z79.899 Other long term (current) drug therapy
CPT/HCPCS: 00123; 36415; 80053; 83690; 87040; 93005; 96365; 96375; 96376; 99285; J1650; 74177; 81003; 81015; 83735; 84484; 85025; 87086; 93010; 99223; J0131; J1100; J1815; J2405; J2470; J2543; J3490

== ENCOUNTER 2025-02-28 02:41 | Outpatient (RCR) | payer MEDICARE, SELFPAY ==
[2025-02-07] MEDS: Normal Saline Flush 10 ML SYR IVP (08:24)
[2025-02-07 08:36] LABS: Abs Immature Grans 0.02 10^3/uL (0.0-0.06); Absolute Basophil Count 0.01 10^3/uL (0.0-0.2); Absolute Lymphocyte Count 0.38 10^3/uL (1.2-3.4); Absolute Monocyte Count 0.65 10^3/uL (0.1-0.8); Absolute Neutrophil Count 6.01 10^3/uL (1.2-6.7); Basophils % 0.1 %; Eosinophils % 1.4 %; HCT 45.2 % (40.0-50.0); HGB 14.4 g/dL (13.5-17.5); Immature Grans % 0.3 %; Lymphocytes % 5.3 %; MCH 29.9 pg (27.0-33.0); MCHC 31.9 % (32.0-36.0); MCV 94 fL (80-95); MPV 9.6 fL (8.0-11.0); Monocytes % 9.1 %; Neutrophils % 83.8 %; Platelet Count 394 10^3/uL (130-400); RBC 4.81 10^6/uL (4.36-5.78); RDW 15.3 % (11.8-14.1); RDW-SD 53.1 fL; WBC 7.17 10^3/uL (4.4-10.8)
[2025-02-07 09:19] LABS: ALT 18 U/L (16-63); AST 16 U/L (15-37); Albumin 3.3 g/dL (3.4-5.0); Alkaline Phosphatase 91 U/L (46-116); Anion Gap 9.3 mmol/L (3-11); BUN 26 mg/dL (7-18); Bilirubin, Total 0.5 mg/dL (0.2-1.0); CO2 26.7 mmol/L (21.0-32.0); Calcium 8.9 mg/dL (8.5-10.1); Chloride 103 mmol/L (98-107); Estimated GFR 78.49 (mL/min/1.73m2); FREE T4 1.13 ng/dL (0.76-1.46); Glucose 138 mg/dL (74-106); Sodium 139 mmol/L (136-145)
== END 2025-03-06 23:59 | disposition home or self-care (01) ==
LOC: INF 02:41
PROVIDERS: PCP Family Medicine; Visit Provider Internal Medicine
DX: E03.9 Hypothyroidism, unspecified (principal); C79.10 Secondary malignant neoplasm of unspecified urinary organs; Z45.2 Encounter for adjustment and management of vascular access device
CPT/HCPCS: 36591; 80053; 84439; 84443; 85025

== ENCOUNTER 2025-03-13 10:00 | Emergency (ER) | payer MEDICARE, SELFPAY ==
[2025-03-13 10:03] VITALS: BP 129/85; PULSE 86; RESP 16; TEMP 36.8; O2SAT 94
[2025-03-13 10:42] VITALS: RESP 18
[2025-03-13 10:53] VITALS: BP 129/85; PULSE 86; RESP 16; TEMP 36.8; O2SAT 94
[2025-03-13 11:01] VITALS: BP 129/85; PULSE 86; RESP 16; TEMP 36.8; O2SAT 94
--- NOTE | 2025-03-13 11:09 | W.ED.GENAD ---
Discharge Plan Disposition Patient Disposition: Transfer-Acute Inpatient Care Condition: Poor Discharge Details Clinical Impression: PEG tube malfunction Primary Care Provider: Beatriz Cotton V ED Provider: Juice Lehman Home Meds and New Rx's Prescriptions: No Action melatonin 3 mg tablet 3 mg PO HS PRN omeprazole 40 mg capsule,delayed release(DR/EC) 40 mg PO DAILY tamsulosin 0.4 mg capsule 0.4 mg PO DAILY oxycodone 5 mg tablet 5 mg PO Q4H MDD 6 tabs PRN (Reason: pain) Qty: 60 0RF Rx Instructions: palliative care patient for cancer related pain Eliquis 5 mg tablet 5 mg PO BID meclizine 25 mg Tablet 25 mg PO Q6H PRN Patient Comments: Only for dentist fluoxetine 40 mg capsule 40 mg PO DAILY fentanyl 12 mcg/hr patch 72 hour 1 patch transdermal Q72H MDD 1 patch Qty: 5 0RF acetaminophen 650 mg suppository 650 mg TN Q6H PRN (Reason: fever, mild pain) Qty: 6 0RF Rx Instructions: Hospice Patient morphine concentrate 100 mg/5 mL (20 mg/mL) solution 5 - 20 mg PO Q1-4H MDD 5 mL PRN (Reason: moderate to severe pain or shortness of breath) Qty: 30 0RF Rx Instructions: Hospice Patient prochlorperazine maleate 10 mg tablet 10 mg PO Q6H PRN (Reason: nausea and vomiting) Qty: 6 0RF Rx Instructions: Hospice Patient hyoscyamine sulfate 0.125 mg tablet,disintegrating 0.125 - 0.25 mg PO Q4H PRN (Reason: secretions) Qty: 24 0RF Rx Instructions: Hospice Patient bisacodyl [Dulcolax (bisacodyl)] 10 mg suppository 10 mg TN daily PRN (Reason: constipation) Qty: 2 0RF Rx Instructions: Hospice Patient Insert 1 supp TN Daily PRN constipation (no BM in 3 days) lorazepam 1 mg tablet 1 mg PO Q4H PRN (Reason: anxiety, [place] or nausea) Qty: 6 5RF Rx Instructions: Hospice Patient haloperidol lactate 2 mg/mL concentrate 1 mg PO Q6H PRN (Reason: agitation) Qty: 15 0RF Rx Instructions: Hospice Patient amoxicillin 500 mg tablet 2,000 mg PO DAILY PRN Rx Instructions: take 4 tablets one hour prior to dental procedure fluoride (sodium) 1.1 % paste 1 applic dental DAILY levothyroxine 125 mcg tablet 125 mcg PO DAILY simvastatin 10 mg tablet 10 mg PO DAILY acetaminophen 500 mg/15 mL liquid 1,000 mg PO Q4H Discharge Instructions Additional Instructions: GO DIRECTLY TO [facility] YOU ARE A DIRECT TRANSFER, ACCEPTED BY DR PACHECO (GENERAL SURGERY) FOR EMERGENT EVALUATION HPI General Date/Time Provider Initiated Documentation: 03/13/25 10:16. Limitations to Documentation: no limitations. Information obtained by: patient, RN/MD and old records reviewed. HPI Narrative: 74-year-old gentleman with past medical history of metastatic bladder cancer, recent duodenal obstruction currently on hospice care presents after his PEG tube was dislodged yesterday at 4 PM. He presents with his daughter. He has been having persistent generalized abdominal pain that has not significantly worsened since the tube fell out. He denies any fever or chills, daughter reports that he has had drainage from the stoma that has been persistent and required several dressing changes. Related Data Home Medications ?Medication ?Instructions ?Recorded ?Confirmed meclizine 25 mg tablet 25 mg PO Q6H PRN 06/28/20 03/13/25 simvastatin 10 mg tablet 10 mg PO DAILY 05/06/23 03/13/25 amoxicillin 500 mg tablet 2,000 mg PO DAILY PRN 05/22/23 03/13/25 fluoxetine 40 mg capsule 40 mg PO DAILY 05/25/23 03/13/25 fluoride (sodium) 1.1 % dental 1 applic dental DAILY 02/10/24 03/13/25 paste levothyroxine 125 mcg tablet 125 mcg PO DAILY 02/10/24 03/13/25 melatonin 3 mg tablet 3 mg PO HS PRN 11/09/24 03/13/25 Held on 03/13/25. Instructions: , omeprazole 40 mg capsule,delayed 40 mg PO DAILY 11/09/24 03/13/25 release tamsulosin 0.4 mg capsule 0.4 mg PO DAILY 11/09/24 03/13/25 oxycodone 5 mg tablet 5 mg PO Q4H PRN pain #60 tabs 11/24/24 03/13/25 apixaban 5 mg tablet (Eliquis) 5 mg PO BID 01/05/25 03/13/25 fentanyl 12 mcg/hr transdermal 1 patch transdermal Q72H #5 ea 03/09/25 03/13/25 patch acetaminophen 650 mg rectal 650 mg TN Q6H PRN fever, mild pain 03/10/25 03/13/25 suppository #6 supp bisacodyl 10 mg rectal suppository 10 mg TN daily PRN constipation #2 03/10/25 03/13/25 (Dulcolax (bisacodyl)) supp haloperidol lactate 2 mg/mL oral 1 mg (0.5 mL) PO Q6H PRN agitation 03/10/25 03/13/25 concentrate #15 mL hyoscyamine sulfate 0.125 mg 0.125 - 0.25 mg (1 - 2 x 0.125 mg) 03/10/25 03/13/25 disintegrating tablet PO Q4H PRN secretions #24 tabs lorazepam 1 mg tablet 1 mg PO Q4H PRN anxiety, [place] or 03/10/25 03/13/25 nausea #6 tabs morphine concentrate 100 mg/5 mL 5 - 20 mg (0.25 - 1 mL) PO Q1-4H 03/10/25 03/13/25 (20 mg/mL) oral solution PRN moderate to severe pain or shortness of breath #30 mL prochlorperazine maleate 10 mg 10 mg PO Q6H PRN nausea and 03/10/25 03/13/25 tablet vomiting #6 tabs acetaminophen 500 mg/15 mL oral 1,000 mg PO Q4H 03/13/25 03/13/25 liquid Previous Rx's ?Medication ?Instructions ?Recorded oxycodone 5 mg tablet 5 mg PO Q4H PRN pain #60 tabs 11/24/24 fentanyl 12 mcg/hr transdermal 1 patch transdermal Q72H #5 ea 03/09/25 patch acetaminophen 650 mg rectal 650 mg TN Q6H PRN fever, mild pain 03/10/25 suppository #6 supp bisacodyl 10 mg rectal suppository 10 mg TN daily PRN constipation #2 03/10/25 (Dulcolax (bisacodyl)) supp haloperidol lactate 2 mg/mL oral 1 mg (0.5 mL) PO Q6H PRN agitation 03/10/25 concentrate #15 mL hyoscyamine sulfate 0.125 mg 0.125 - 0.25 mg (1 - 2 x 0.125 mg) 03/10/25 disintegrating tablet PO Q4H PRN secretions #24 tabs lorazepam 1 mg tablet 1 mg PO Q4H PRN anxiety, [place] or 03/10/25 nausea #6 tabs morphine concentrate 100 mg/5 mL 5 - 20 mg (0.25 - 1 mL) PO Q1-4H 03/10/25 (20 mg/mL) oral solution PRN moderate to severe pain or shortness of breath #30 mL prochlorperazine maleate 10 mg 10 mg PO Q6H PRN nausea and 03/10/25 tablet vomiting #6 tabs Allergies Allergy/AdvReac Type Severity Reaction Status Date / Time ceftriaxone Allergy Severe ANAPHYLAXIS Verified 03/13/25 10:08 Cephalosporins Allergy Severe Anaphylaxsi Verified 03/13/25 10:08 s ciprofloxacin AdvReac Dizziness/L Verified 03/13/25 10:08 ightheade fentanyl AdvReac Agitation, Verified 03/13/25 10:08 confusion meperidine HCl (From Demerol) AdvReac vomiting Verified 03/13/25 10:08 morphine AdvReac vomiting Verified 03/13/25 10:08 General Stated Complaint: GenMedical CASIMIRO: 3 Exam Narrative Exam Narrative: Review of Systems: All systems reviewed & are unremarkable except as noted in HPI and below Well-developed, appears chronically ill NCAT Unlabored respiratory effort Midline ex lap scar clean dry intact, a few Steri-Strips are still in place, stoma noted with some minimal amount of leakage, abdomen with mild generalized tenderness, not rigid Course Vital Signs Vital signs: Vital Signs Temperature 36.8 C 03/13/25 10:03 Pulse 86 03/13/25 10:03 Respiratory Rate 16 03/13/25 10:03 Blood Pressure 129/85 03/13/25 10:03 Pulse Oximetry 94 03/13/25 10:03 Temperature 36.8 C 03/13/25 11:01 Temperature Source Oral 03/13/25 10:53 Pulse 86 03/13/25 11:01 Respiratory Rate 16 03/13/25 11:01 Respiratory Effort Normal, Non-Labored 03/13/25 10:42 Respiratory Depth Normal 03/13/25 10:42 Respiratory Pattern Normal 03/13/25 10:42 Blood Pressure 129/85 03/13/25 11:01 Blood Pressure Position Sitting 03/13/25 10:53 Pulse Oximetry 94 03/13/25 11:01 Oxygen Delivery Method Room Air 03/13/25 10:53 Oxygen Flow Rate 0 03/13/25 10:03 Pain Level 0 03/13/25 11:01 Medical Decision Making Emergent evaluation of tach PEG tube dislodgment. I have reviewed the medical record at [facility] and noted that this tube was placed in the operating room there. Unfortunately we do not have a PEG tube for replacement, I spoke with general surgeon Dr. Pacheco and there would be concern that the stomach wall has fallen away from the abdominal wall and he would need imaging prior to any tube replacement. Given the complexity of his case, they are recommending transfer down to [facility] for ultimate management. I have updated the family on this conversation, they do not want to go by EMS and they have agreed to transport the patient POV. At this time he is hemodynamically stable and I feel that POV transport is an option. He will go directly to the emergency department for further management and treatment. He was advised to remain NPO. 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, secondary (Acute) Cancer, metastatic to lung (Acute) Urothelial cancer (Acute) Foot drop, right (Acute) Vertigo (Acute) Cerebrovascular disease (Acute) Parkinsonism (Acute) Frequent falls (Acute) Urothelial carcinoma (Acute) Other calcification of muscle, left shoulder (Acute) Gross hematuria (Acute) Hematoma of abdominal wall (Acute) post-op Recurrent simple right inguinal hernia (Acute) Atopic dermatitis (Acute) Contact dermatitis (Acute) Lightheadedness (Acute) Sensorineural hearing loss (Acute) Tubular adenoma of colon (Acute) Hypomagnesemia (Acute) Hypoglycemia (Acute) Dysphagia (Chronic) IDDM (insulin dependent diabetes mellitus) (Chronic) no longer has diabetes due to weight loss and diet control 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 (Acute) Squamous cell carcinoma of tonsil (Acute) Cervical lymphadenopathy (Acute) Tonsillar mass (Acute) Unintentional weight loss (Acute) Chest pain (Acute) Sleep apnea (Acute) Asthma (Chronic) Medical History Tonsillar cancer Hx of, treated with chemoradiation At risk for aspiration RSI intubation, OGT placed, awake extubation and noted to have bile around 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 Presence of total knee joint prosthesis Vitamin D deficiency High arbovirus antibody titer Mild intermittent asthma Abnormal weight loss Lumbosacral radiculopathy Pyogenic bacterial arthritis of knee Primary malignant neoplasm of tonsil Umbilical hernia Right inguinal hernia recurrent Repaired Jun 2022, [place] Anemia Osteoarthritis of left knee Chondromalacia patellae of left knee Obesity Diverticulosis Colon polyps Trigeminy History of tobacco use Shoulder pain, left HTN (hypertension) Per pt. 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) Essential tremor (11/21/14) Hyperlipemia Depression Surgical History S/P inguinal hernia repair using synthetic patch (~07/08/23) recurrent right inguinal hernia S/P inguinal hernia repair using synthetic patch (~06/09/22) and umbilical hernia History of total left hip replacement (09/02/19) Trochanteric bursitis, left hip S/P debridement with IT band lengthenin08/12/2021 History of total left knee replacement (10/02/20) Hx of colonoscopy (~07/2022) Hx of total knee arthroplasty Right Status post right rotator cuff repair (~01/25/19) Repair of supraspinatus, distal clavicle excision, biceps tenotomy Dr. 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 Family History Father , 65 from [place] Heart disease Hypertension Myocardial infarction Brother , 83 of leukemia Tremor Leukemia Son Seizure Mother , age 95 Osteoarthritis Daughter Alive and well Social History Smoking/Tobacco Use Status: Former Tobacco Use Quit Date: 09/07/79 Pack-years: 1 Smoking risk assessment performed?: Yes Alcohol Intake: current Alcohol Intake frequency: a few times a week Alcohol type: beer Details: MODERATE 5-7 TIMES PER WEEK Drug use: Never Substance use type: does not use Household members: children Housing: house Number of Children: 2 current occupation: Retired Current gender identity: male What type of physical activity do you participate in: independent ambulation Do you feel safe at home: Yes Do you feel safe in your relationship?: Yes Additional Social history: Retired from [employer], lives his own home in town, adult grandson stays with him. 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
--- NOTE | 2025-03-13 11:10 | NUR.NOTE ---
Patient left department with daughter Dejah to [facility] emergency department as an ED to ED transfer. Patient left alert and oriented in nil distress. Left upper quadrant where drainage tube were, was cleaned and covered with gauze
== END 2025-03-13 11:13 | disposition short-term general hospital (02) ==
PROVIDERS: Emergency Provider Emergency Medicine; PCP Family Medicine
DX: K94.23 Gastrostomy malfunction (principal); I10 Essential (primary) hypertension; E78.5 Hyperlipidemia, unspecified; G20.C Parkinsonism, unspecified; Z86.73 Personal history of transient ischemic attack (TIA), and cerebral infarction without residual deficits; Z79.01 Long term (current) use of anticoagulants; Z87.891 Personal history of nicotine dependence
CPT/HCPCS: 99284

== ENCOUNTER 2025-03-14 20:17 | Emergency (ER) | payer MEDICARE, SELFPAY ==
[2025-03-14 20:19] VITALS: BP 143/98; PULSE 82; RESP 18; TEMP 36.7; O2SAT 91
--- NOTE | 2025-03-14 20:43 | W.ED.GENAD ---
Discharge Plan Disposition Patient Disposition: Home Condition: Stable Discharge Details Clinical Impression: PEG (percutaneous endoscopic gastrostomy) adjustment/replacement/removal Primary Care Provider: Beatriz Cotton V ED Provider: Ning Blakely Home Meds and New Rx's Prescriptions: No Action melatonin 3 mg tablet 3 mg PO HS PRN omeprazole 40 mg capsule,delayed release(DR/EC) 40 mg PO DAILY tamsulosin 0.4 mg capsule 0.4 mg PO DAILY oxycodone 5 mg tablet 5 mg PO Q4H MDD 6 tabs PRN (Reason: pain) Qty: 60 0RF Rx Instructions: palliative care patient for cancer related pain Eliquis 5 mg tablet 5 mg PO BID meclizine 25 mg Tablet 25 mg PO Q6H PRN Patient Comments: Only for dentist fluoxetine 40 mg capsule 40 mg PO DAILY fentanyl 12 mcg/hr patch 72 hour 1 patch transdermal Q72H MDD 1 patch Qty: 5 0RF acetaminophen 650 mg suppository [address] Q6H PRN (Reason: fever, mild pain) Qty: 6 0RF Rx Instructions: Hospice Patient morphine concentrate 100 mg/5 mL (20 mg/mL) solution 5 - 20 mg PO Q1-4H MDD 5 mL PRN (Reason: moderate to severe pain or shortness of breath) Qty: 30 0RF Rx Instructions: Hospice Patient prochlorperazine maleate 10 mg tablet 10 mg PO Q6H PRN (Reason: nausea and vomiting) Qty: 6 0RF Rx Instructions: Hospice Patient hyoscyamine sulfate 0.125 mg tablet,disintegrating 0.125 - 0.25 mg PO Q4H PRN (Reason: secretions) Qty: 24 0RF Rx Instructions: Hospice Patient bisacodyl [Dulcolax (bisacodyl)] 10 mg suppository [address] daily PRN (Reason: constipation) Qty: 2 0RF Rx Instructions: Hospice Patient Insert [address] Daily PRN constipation (no BM in 3 days) lorazepam 1 mg tablet 1 mg PO Q4H PRN (Reason: anxiety, [place] or nausea) Qty: 6 5RF Rx Instructions: Hospice Patient haloperidol lactate 2 mg/mL concentrate 1 mg PO Q6H PRN (Reason: agitation) Qty: 15 0RF Rx Instructions: Hospice Patient amoxicillin 500 mg tablet 2,000 mg PO DAILY PRN Rx Instructions: take 4 tablets one hour prior to dental procedure fluoride (sodium) 1.1 % paste 1 applic dental DAILY levothyroxine 125 mcg tablet 125 mcg PO DAILY simvastatin 10 mg tablet 10 mg PO DAILY acetaminophen 500 mg/15 mL liquid 1,000 mg PO Q4H Discharge Instructions Instructions: How to Care for Your Gastrostomy Tube Additional Instructions: The surgeon was able to replace your tube. Please follow-up with your surgeon in [facility] and return to the emergency department with any other concerns. HPI General Date/Time Provider Initiated Documentation: 03/14/25 20:22. HPI Narrative: The patient is a 74-year-old male with a history of metastatic bladder cancer with duodenal obstruction with PEG tube who comes to the emergency department for PEG tube falling out. History is obtained from the patient and his son. Reports they were at [facility] yesterday and had his PEG tube replaced after he had fallen out. Reports that it fell out again this morning but patient's nurse was able to put it back into place. Reports that around 7:00 this evening it fell out again and they were unable to put it back. Reports at 4:00 in the morning the patient was walking when he lost his balance and landed on his knee and also scraped up his face. Denies any loss of consciousness. Reports he was evaluated by his nurse and everything was fine. Admits that he is on blood thinning medication for diagnosis of DVT. Denies any headache or neck pain. According to the patient's son the patient is acting at baseline. The patient reports that he has abdominal pain but this is not new or worse than his normal. Admits that earlier he thought he was going to be nauseous and vomit but denies feeling nauseous now. Related Data Home Medications ?Medication ?Instructions ?Recorded ?Confirmed meclizine 25 mg tablet 25 mg PO Q6H PRN 06/28/20 03/14/25 simvastatin 10 mg tablet 10 mg PO DAILY 05/06/23 03/14/25 Held on 03/14/25. Instructions: Pt Stopped/Never Started amoxicillin 500 mg tablet 2,000 mg PO DAILY PRN 05/22/23 03/14/25 fluoxetine 40 mg capsule 40 mg PO DAILY 05/25/23 03/14/25 fluoride (sodium) 1.1 % dental 1 applic dental DAILY 02/10/24 03/14/25 paste levothyroxine 125 mcg tablet 125 mcg PO DAILY 02/10/24 03/14/25 Held on 03/14/25. Instructions: Pt Stopped/Never Started melatonin 3 mg tablet 3 mg PO HS PRN 11/09/24 03/14/25 Held on 03/13/25. Instructions: , omeprazole 40 mg capsule,delayed 40 mg PO DAILY 11/09/24 03/14/25 release Held on 03/14/25. Instructions: Pt Stopped/Never Started tamsulosin 0.4 mg capsule 0.4 mg PO DAILY 11/09/24 03/14/25 Held on 03/14/25. Instructions: Pt Stopped/Never Started oxycodone 5 mg tablet 5 mg PO Q4H PRN pain #60 tabs 11/24/24 03/14/25 apixaban 5 mg tablet (Eliquis) 5 mg PO BID 01/05/25 03/14/25 fentanyl 12 mcg/hr transdermal 1 patch transdermal Q72H #5 ea 03/09/25 03/14/25 patch acetaminophen [address] Q6H PRN fever, mild pain 03/10/25 03/14/25 suppository #6 supp bisacodyl 10 mg rectal suppository [address] daily PRN constipation #2 03/10/25 03/14/25 (Dulcolax (bisacodyl)) supp haloperidol lactate 2 mg/mL oral 1 mg (0.5 mL) PO Q6H PRN agitation 03/10/25 03/14/25 concentrate #15 mL hyoscyamine sulfate 0.125 mg 0.125 - 0.25 mg (1 - 2 x 0.125 mg) 03/10/25 03/14/25 disintegrating tablet PO Q4H PRN secretions #24 tabs lorazepam 1 mg tablet 1 mg PO Q4H PRN anxiety, [place] or 03/10/25 03/14/25 nausea #6 tabs morphine concentrate 100 mg/5 mL 5 - 20 mg (0.25 - 1 mL) PO Q1-4H 03/10/25 03/14/25 (20 mg/mL) oral solution PRN moderate to severe pain or shortness of breath #30 mL prochlorperazine maleate 10 mg 10 mg PO Q6H PRN nausea and 03/10/25 03/14/25 tablet vomiting #6 tabs acetaminophen 500 mg/15 mL oral 1,000 mg PO Q4H 03/13/25 03/14/25 liquid Previous Rx's ?Medication ?Instructions ?Recorded oxycodone 5 mg tablet 5 mg PO Q4H PRN pain #60 tabs 11/24/24 fentanyl 12 mcg/hr transdermal 1 patch transdermal Q72H #5 ea 03/09/25 patch acetaminophen 650 mg rectal [address] Q6H PRN fever, mild pain 03/10/25 suppository #6 supp bisacodyl 10 mg rectal suppository [address] daily PRN constipation #2 03/10/25 (Dulcolax (bisacodyl)) supp haloperidol lactate 2 mg/mL oral 1 mg (0.5 mL) PO Q6H PRN agitation 03/10/25 concentrate #15 mL hyoscyamine sulfate 0.125 mg 0.125 - 0.25 mg (1 - 2 x 0.125 mg) 03/10/25 disintegrating tablet PO Q4H PRN secretions #24 tabs lorazepam 1 mg tablet 1 mg PO Q4H PRN anxiety, [place] or 03/10/25 nausea #6 tabs morphine concentrate 100 mg/5 mL 5 - 20 mg (0.25 - 1 mL) PO Q1-4H 03/10/25 (20 mg/mL) oral solution PRN moderate to severe pain or shortness of breath #30 mL prochlorperazine maleate 10 mg 10 mg PO Q6H PRN nausea and 03/10/25 tablet vomiting #6 tabs Allergies Allergy/AdvReac Type Severity Reaction Status Date / Time ceftriaxone Allergy Severe ANAPHYLAXIS Verified 03/13/25 10:08 Cephalosporins Allergy Severe Anaphylaxsi Verified 03/13/25 10:08 s ciprofloxacin AdvReac Dizziness/L Verified 03/13/25 10:08 ightheade meperidine HCl (From Demerol) AdvReac vomiting Verified 03/13/25 10:08 morphine AdvReac vomiting Verified 03/13/25 10:08 General Stated Complaint: Abd Prob CASIMIRO: 3 Review of Systems Narrative: Review of systems are negative except as mentioned. Exam Narrative Exam Narrative: General appearance: The patient is alert, has no immediate need for airway protection and no signs of toxicity. HEENT: Pupils are round, equal and reactive. Oral mucosal membranes are moist. Neck: No midline C-spine tenderness is noted to palpation. Respiratory: There are no retractions. Lungs are clear to auscultation. Cardiovascular: Regular in rate and rhythm. Radial pulses are intact and equal. Gastrointestinal: The abdomen is soft and nondistended with normal bowel sounds. Patient has diffuse abdominal tenderness to palpation without rebound tenderness, guarding or rigidity. Neurological: The patient is alert, awake and oriented x 3. Speech is clear. Has no facial asymmetry.. Skin: Patient has abrasion to the bridge of his nose. PEG tube placement site noted on the left abdomen without overlying erythema or increased warmth to touch. Back: No midline lumbar or thoracic spine tenderness noted to palpation. Extremities: No tenderness noted palpation of bilateral upper or lower extremities. Course Vital Signs Vital signs: Vital Signs Temperature 36.7 C 03/14/25 20:19 Pulse 82 03/14/25 20:19 Respiratory Rate 18 03/14/25 20:19 Blood Pressure 143/98 H 03/14/25 20:19 Pulse Oximetry 91 L 03/14/25 20:19 Temperature 36.7 C 03/14/25 20:19 Pulse 82 03/14/25 20:19 Respiratory Rate 18 03/14/25 20:19 Blood Pressure 143/98 H 03/14/25 20:19 Blood Pressure Position Sitting 03/14/25 20:19 Pulse Oximetry 91 L 03/14/25 20:19 Oxygen Delivery Method Room Air 03/14/25 20:19 Oxygen Flow Rate 0 03/14/25 20:19 Pain Level 0 03/14/25 20:19 Medical Decision Making Surgeon on-call, Dr. Quiroz is in the emergency department now. We are calling the operating room to obtain supply. In regards to the fall with head injury the patient and his son would like to hold off on workup of this therefore imaging studies have not been ordered. Although the patient reports that he was nauseous earlier he is no longer feeling nauseous now and therefore declined nausea medication. Dr. Quiroz was able to replace his tube. Please refer to his notes for further details. The patient is to be discharged shortly. Instructions on how to care for this tube has been given by the surgeon. Patient is asked to follow-up with his surgeon at [facility] also and urged to return to the emergency department with any other concerns. 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, secondary (Acute) Cancer, metastatic to lung (Acute) Urothelial cancer (Acute) Foot drop, right (Acute) Vertigo (Acute) Cerebrovascular disease (Acute) Parkinsonism (Acute) Frequent falls (Acute) Urothelial carcinoma (Acute) Other calcification of muscle, left shoulder (Acute) Gross hematuria (Acute) Hematoma of abdominal wall (Acute) post-op Recurrent simple right inguinal hernia (Acute) Atopic dermatitis (Acute) Contact dermatitis (Acute) Lightheadedness (Acute) Sensorineural hearing loss (Acute) Tubular adenoma of colon (Acute) Hypomagnesemia (Acute) Hypoglycemia (Acute) Dysphagia (Chronic) IDDM (insulin dependent diabetes mellitus) (Chronic) no longer has diabetes due to weight loss and diet control 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 (Acute) Squamous cell carcinoma of tonsil (Acute) Cervical lymphadenopathy (Acute) Tonsillar mass (Acute) Unintentional weight loss (Acute) Chest pain (Acute) Sleep apnea (Acute) Asthma (Chronic) Medical History Tonsillar cancer Hx of, treated with chemoradiation At risk for aspiration RSI intubation, OGT placed, awake extubation and noted to have bile around 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 Presence of total knee joint prosthesis Vitamin D deficiency High arbovirus antibody titer Mild intermittent asthma Abnormal weight loss Lumbosacral radiculopathy Pyogenic bacterial arthritis of knee Primary malignant neoplasm of tonsil Umbilical hernia Right inguinal hernia recurrent Repaired Jun 2022, [place] Anemia Osteoarthritis of left knee Chondromalacia patellae of left knee Obesity Diverticulosis Colon polyps Trigeminy History of tobacco use Shoulder pain, left HTN (hypertension) Per pt. 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) Essential tremor (11/21/14) Hyperlipemia Depression Surgical History S/P inguinal hernia repair using synthetic patch (~07/08/23) recurrent right inguinal hernia S/P inguinal hernia repair using synthetic patch (~06/09/22) and umbilical hernia History of total left hip replacement (09/02/19) Trochanteric bursitis, left hip S/P debridement with IT band lengthenin08/12/2021 History of total left knee replacement (10/02/20) Hx of colonoscopy (~07/2022) Hx of total knee arthroplasty Right Status post right rotator cuff repair (~01/25/19) Repair of supraspinatus, distal clavicle excision, biceps tenotomy Dr. 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 Family History Father , 65 from [place] Heart disease Hypertension Myocardial infarction Brother , 83 of leukemia Tremor Leukemia Son Seizure Mother , age 95 Osteoarthritis Daughter Alive and well Social History Smoking/Tobacco Use Status: Former Tobacco Use Quit Date: 09/07/79 Pack-years: 1 Smoking risk assessment performed?: Yes Alcohol Intake: former Details: MODERATE 5-7 TIMES PER WEEK Drug use: Daily Substance use type: marijuana Household members: children Housing: house Number of Children: 2 current occupation: Retired Current gender identity: male What type of physical activity do you participate in: independent ambulation Do you feel safe at home: Yes Do you feel safe in your relationship?: Yes Additional Social history: Retired from [employer], lives his own home in town, adult grandson stays with him. 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
--- NOTE | 2025-03-14 21:17 | SCONE_ITS ---
Date of service: 03/14/25 Time of Service: 21:00 Assessment and Plan Assessment and plan (1) PEG tube malfunction: Status: Acute Assessment and plan: 74 yo M with hx of intestinal cancer. G tube due to gastric outlet obstruction. Tube dislodged - replaced bedside, tolerated well - 18Fr 3.5cm Isacc-amin tube - okay for discharge - return to palliative care - showed son how to replace, voiced understanding (2) Dysphagia: Status: Chronic (3) Palliative care patient: Status: Acute History of Present Illness History of Present Illness Chief Complaint: G tube dislodged Narrative: 74 yo M with hx of GI cancer on hospice with a feeding tube presents after G tube was dislodged. Presented yesterday for the same and sent to [facility]. No associated pain. No fevers or chills Review of Systems Constitutional Constitutional: Denies chills and Denies fever(s) Cardiovascular Cardiovascular: Denies chest pain and Denies dyspnea Respiratory Respiratory: Denies dyspnea Gastrointestinal Gastrointestinal: Denies abdominal pain, Denies bloating and Denies vomiting Musculoskeletal Musculoskeletal: Denies myalgias PFSH All Active Problems (Updated 03/14/25 @ 21:25 by Chuy Melendrez, ) PEG tube malfunction (Acute) Advanced care planning/counseling discussion (Acute) Metastasis to liver (Acute) Pyuria (Acute) Palliative care patient (Acute) Atrial fibrillation (Chronic) DVT (deep venous thrombosis) (Chronic) Gastric outlet obstruction (Acute) Abdominal pain (Acute) Cancer-related pain (Acute) 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, secondary (Acute) Cancer, metastatic to lung (Acute) Urothelial cancer (Acute) Foot drop, right (Acute) Vertigo (Acute) Cerebrovascular disease (Acute) Parkinsonism (Acute) Frequent falls (Acute) Urothelial carcinoma (Acute) Other calcification of muscle, left shoulder (Acute) Gross hematuria (Acute) Hematoma of abdominal wall (Acute) post-op Recurrent simple right inguinal hernia (Acute) Atopic dermatitis (Acute) Contact dermatitis (Acute) Lightheadedness (Acute) Sensorineural hearing loss (Acute) Tubular adenoma of colon (Acute) Hypomagnesemia (Acute) Hypoglycemia (Acute) Dysphagia (Chronic) IDDM (insulin dependent diabetes mellitus) (Chronic) no longer has diabetes due to weight loss and diet control 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 (Acute) Squamous cell carcinoma of tonsil (Acute) Cervical lymphadenopathy (Acute) Tonsillar mass (Acute) Unintentional weight loss (Acute) Chest pain (Acute) Sleep apnea (Acute) Asthma (Chronic) Medical History Tonsillar cancer Hx of, treated with chemoradiation At risk for aspiration RSI intubation, OGT placed, awake extubation and noted to have bile around 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 Presence of total knee joint prosthesis Vitamin D deficiency High arbovirus antibody titer Mild intermittent asthma Abnormal weight loss Lumbosacral radiculopathy Pyogenic bacterial arthritis of knee Primary malignant neoplasm of tonsil Umbilical hernia Right inguinal hernia recurrent Repaired Jun 2022, [place] Anemia Osteoarthritis of left knee Chondromalacia patellae of left knee Obesity Diverticulosis Colon polyps Trigeminy History of tobacco use Shoulder pain, left HTN (hypertension) Per pt. 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) Essential tremor (11/21/14) Hyperlipemia Depression Surgical History S/P inguinal hernia repair using synthetic patch (~07/08/23) recurrent right inguinal hernia S/P inguinal hernia repair using synthetic patch (~06/09/22) and umbilical hernia History of total left hip replacement (09/02/19) Trochanteric bursitis, left hip S/P debridement with IT band lengthenin08/12/2021 History of total left knee replacement (10/02/20) Hx of colonoscopy (~07/2022) Hx of total knee arthroplasty Right Status post right rotator cuff repair (~01/25/19) Repair of supraspinatus, distal clavicle excision, biceps tenotomy Dr. 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 Family History Father , 65 from [place] Heart disease Hypertension Myocardial infarction Brother , 83 of leukemia Tremor Leukemia Son Seizure Mother , age 95 Osteoarthritis Daughter Alive and well Social History Smoking/Tobacco Use Status: Former Tobacco Use Quit Date: 09/07/79 Pack-years: 1 Smoking risk assessment performed?: Yes Alcohol Intake: former Details: MODERATE 5-7 TIMES PER WEEK Drug use: Daily Substance use type: marijuana Household members: children Housing: house Number of Children: 2 current occupation: Retired Current gender identity: male What type of physical activity do you participate in: independent ambulation Do you feel safe at home: Yes Do you feel safe in your relationship?: Yes Additional Social history: Retired from [employer], lives his own home in [facility], adult grandson stays with him. 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 Exam Const General: cooperative, comfortable and no acute distress Eyes EOM: EOM intact bilaterally GI Palpation: soft, no guarding and nontender Other: low midline scar well healed. Mature fistula tract left upper quadrant, no surrounding erythema Skin General skin exam: turgor normal and no erythema Neuro General: patient alert and patient awake Results Last Vital Signs Temp 36.7 C 03/14/25 20:19 Pulse 82 03/14/25 20:19 Resp 18 03/14/25 20:19 BP 143/98 H 03/14/25 20:19 Pulse Ox 91 L 03/14/25 20:19 Procedures Feeding Tube Replacement Type of tube: gastrostomy Insertion site prior to procedure: clean Tube used for reinsertion: other (18Fr 3.5cm Isacc-Amin) Qatari Tube Size (F): 18 Balloon size (ml): 5 Verification of placement: other (flushed easily, no pain. Withdraw gastric content) Tube secured by: other (balloon) Patient tolerated procedure: well and no complications Additional comments: son at bedside - replacement demonstrated with verbal understanding
== END 2025-03-14 21:40 | disposition home or self-care (01) ==
PROVIDERS: Emergency Provider Emergency Medicine; PCP Family Medicine
DX: K94.23 Gastrostomy malfunction (principal); R13.10 Dysphagia, unspecified; Z51.5 Encounter for palliative care
CPT/HCPCS: 43246; 99283 ×2